=== PATIENT | male | born 2000 ===

== ENCOUNTER 2024-11-28 13:23 | Inpatient (IN) | payer OTHER, SELFPAY ==
[2024-11-28 13:50] VITALS: BP 133/70; PULSE 84; RESP 16; TEMP 37.2; O2SAT 96; BMI 30.5
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
[2024-11-28 14:42] LABS: MANUAL DIFF FLAG NO
[2024-11-28 14:46] LABS: Appearance Urine Clear; Color Urine Yellow; Glucose Urine UA Negative (Negative); Leukocyte Esterase Urine Negative (Negative); Nitrite Urine Negative (Negative); Urine Blood Negative (Negative); Urine Ketones Negative (Negative); Urine Protein Negative (Neg-Trace)
[2024-11-28 14:48] LABS: Basophils Percent Auto 0.5 % (0-2); Eosinophils Percent Auto 0.5 % (0-4); Hematocrit 38.9 % (42.0-52.0); Imm Gran Abs Auto 0.01 X10*3/uL (0.00-0.03); Imm Gran Pct Auto 0.2 % (0.0-0.4); Lymphocytes Absolute Auto 1.8 X10*3/uL (1.2-4.9); Lymphocytes Percent Auto 32.3 % (20-40); Mean Corpuscular HGB Conc 33.4 g/dl (31.0-36.0); Mean Corpuscular Hemoglobin 29.8 pg (27.0-33.0); Mean Corpuscular Volume 89.2 fL (80.0-98.0); Mean Platelet Volume 9.3 fL (9.4-12.4); Monocytes Absolute Auto 0.3 X10*3/uL (0.1-1.2); Monocytes Percent Auto 4.9 % (2-11); Neutrophils Absolute Auto 3.4 x10*3/uL (2.0-8.3); Neutrophils Percent Auto 61.6 % (45-73); Platelet Count 324 X10*3/uL (160-400); Red Blood Count 4.36 X10*6/uL (4.60-5.80); Red Cell Distribution Width 12.1 % (11.0-16.0); White Blood Count 5.5 X10*3/uL (4.8-10.8)
[2024-11-28 14:59] LABS: COVID-19 Test Negative (Negative); IDNOW Serial# 58CA691E
[2024-11-28 15:03] LABS: Amphetamine Screen Urine Not Detected (Not Detect); Barbiturates, Urine Not Detected (Not Detect); Benzodiazepines Screen Urine Not Detected (Not Detect); Buprenorphine Scr Not Detected (Not Detect); Cannabinoid Screen Urine Not Detected (Not Detect); Cocaine Screen Urine Not Detected (Not Detect); Fentanyl, urine Not Detected (Not Detect); Methadone Screen, Urine Not Detected (Not Detect); Opiate Screen Urine Not Detected (Not Detect); Oxycodone Screen Urine Not Detected (Not Detect); Phencyclidine Screen Urine Not Detected (Not Detect)
[2024-11-28 15:21] LABS: Alanine Aminotransferase 35 U/L (0-40); Albumin Level 4.1 g/dL (3.5-5.0); Anion Gap 12 (12-20); Aspartate Amino Transferase 24 U/L (5-37); Bilirubin Total 0.5 mg/dL (0.0-1.0); Blood Urea Nitrogen 7 mg/dL (9-16); Calcium 9.8 mg/dL (8.4-10.2); Carbon Dioxide 26 mmol/L (22-29); Chloride 106 mmol/L (96-108); Creatinine Clr Calc Pharmacy 158.1; Estimated Glomerular Filt Rate > 60; Ethanol < 10 mg/dL; Glucose Random 112 mg/dL (60-115); Potassium 3.8 mmol/L (3.3-5.1); Sodium 140 mmol/L (135-145); Total Protein 6.9 g/dL (6.5-8.0)
[2024-11-28 15:38] LABS: Alkaline Phosphatase 43 U/L (39-117)
[2024-11-28 15:44] LABS: Acetaminophen LAB < 3 mcg/mL (<30); Salicylate < 5.0 mg/dL (15-30)
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
--- OUTSIDE RECORDS SUMMARY | 2024-11-28 18:17 | XMS_ITS ---
Author Organization [facility] Address [address] [place] [phone] Care Team Providers Care Sort Line Worker Name Role Phone No, PCP Primary Care Provider Unavailabl e [facility], Nursing Unavailable [phone] [facility] Unavailable [phone] REASON FOR VISIT apply for insurance Encounters Encounter Location Date Provider Diagnosis [address] [id number] 11/14/2024 [facility] Plan Of Treatment Next Appt Details Provider Name:Nursing [facility], 12/28/2024 01:30:00 PM, [address] [place] [address], [id number], Progress Notes * Mónica CLEANINGDOB: 1 (24 yo M)Acc No.[id number]:11/14/2024 Patient:?Mónica CLEANING Provider:?[facility] :2000???Age:24 Y???Sex:Male Gurpreet e:11/14/2024 Address:[address] [place] [phone] Pcp:PCP No Subjective: * Chief Complaints: * ???1. Apply for insurance. * HPI: ???Social Service:?Date of encounter?Date:11/14/2024.?Referral Source?Seen at:, [facility].?Action Taken?[facility]? Member came in with their father to apply for [employer]; called to find out why member was not eligible; member has not submitted a new application since 2019;, application on paper : faxed, Address updated, ZEENAT submitted..?Follow-up Required:?no.?Pt comprehension?Pt agrees with plan, Patient understood process and assisted with process.? * Medical History:? Objective: * Vitals:? Assessment: Plan: * Images: Billing Information: Care Plan Details* * Sign off status: Completed true * Provider:?MACI [facility] Date:?11/14/2024 Generated for Joseph trinh/Cosmo/eTransmitting on:?11/28/2024 06:17 PM EDT History and Physical Notes * HPI (History of Present Illness) Category Sub-Category Detail Notes Social Service Referral Source Seen at:, [facility] Follow-up Required: no Pt comprehension Pt agrees with plan, Patient understood process and assisted with process Action Taken [facility] : Member came in w ith their father to apply for [employer]; called to find out why member was not eligible; member has not submitted a new application since 2019;, application on paper : faxed, Address updated, ZEENAT submitted. Date of encounter Date:11/14/2024
--- OUTSIDE RECORDS SUMMARY | 2024-11-28 18:17 | XMS_ITS ---
Author Organization [facility] Address [address] [place] [phone] Care Team Providers Care Sales Hunter Name Role Phone No, PCP Primary Care Provider Unavailabl e [facility], Nursing Unavailable [phone] [facility] Unavailable [phone] REASON FOR VISIT pick plan and pcp Encounters Encounter Location Date Provider Diagnosis [address] [id number] 11/20/2024 [facility] Plan Of Treatment Next Appt Details Provider Name:Nursing [facility], 12/28/2024 01:30:00 PM, [address] [place] [address], [id number], Progress Notes * Mónica CLEANINGDOB: 1 (24 yo M)Acc No.[id number]:11/20/2024 Patient:?Mónica CLEANING Provider:?[facility] :2000???Age:24 Y???Sex:Male Gurpreet e:11/20/2024 Address:[address] [place] [phone] Pcp:PCP No Subjective: * Chief Complaints: * ???1. Pick plan and pcp. * HPI: ???Social Service:?Date of encounter?Date:11/20/2024.?Action Taken?[facility]? Enrollment in plan-online: [phone]; Picked plan and pcp to C3 w/[facility]; 1-2 days to process..?Follow-up Required:?no.?Pt comprehension?Pt agrees with plan, Patient understood process and assisted with process.? * Medical History:? Objective: * Vitals:? Assessment: Plan: * Images: Billing Information: Care Plan Details* * Sign off status: Completed true * Provider:?MACI [facility] Date:?11/20/2024 Generated for Joseph trinh/Cosmo/Livia on:?11/28/2024 06:16 PM EDT History and Physical Notes * HPI (History of Present Illness) Category Sub-Category Detail Notes Social Service Follow-up Required: no Pt comprehension Pt agrees with plan, Patient understood process and assisted with process Action Taken [facility] : Enrollment in an-online: [phone]; Picked plan and pcp to C3 w/[facility]; 1-2 days to process. Date of encounter Date:11/20/2024
--- OUTSIDE RECORDS SUMMARY | 2024-11-28 18:17 | XMS_ITS | Patient Health Record ---
Author Organization [facility] Address [address] [place] [address] [phone] Care Team Providers Care Apprentice Painter Neckties Name Role Phone No, PCP Primary Care Provider Unavailabl e [facility], Nursing Unavailable [phone] [facility] Unavailable [phone] Reason For Referral No Information Encounters Encounter Location Date Provider Diagnosis [address] [id number] 11/14/[address] [id number] 11/20/2024 [facility] Plan Of Treatment Next Appt Details Provider Name:Nursing [facility], 12/28/2024 01:30:00 PM, [address] [place] [address], [id number], Insurance Providers Payer Name Payer Address Payer Phone Subscriber Number Group Number Insured Name Patient Relationship to Insured Coverage Start Date Coverage End Date [place] Standard [address] [place] [address] [id number] Mónica Cleaning Self - patient is the insured
--- NOTE | 2024-11-28 19:58 | MHC.EDTECH ---
pt refusing EKG at this time. rn aware.
[2024-11-28 22:00] VITALS: BP 138/92; PULSE 82; RESP 16; TEMP 36.8; O2SAT 97
[2024-11-29 06:07] VITALS: RESP 16
--- NOTE | 2024-11-29 09:10 | ECG_ITS ---
Test Reason : r/o prolong QT Blood Pressure : */* mmHG Vent. Rate : 89 BPM Atrial Rate : 89 BPM P-R Int : 152 ms QRS Dur : 94 ms QT Int : 344 ms P-R-T Axes : -14 5 26 degrees QTcB Int : 418 ms Normal sinus rhythm Normal ECG No previous ECGs available Referred By: Miriam Cohen Electronically Signed By: BHANU FONTAINE MD
--- NOTE | 2024-11-29 12:00 | PC.NURSE ---
Report to becky on M5
[2024-11-29 12:10] VITALS: BP 134/80; PULSE 101; RESP 14; TEMP 36.9; O2SAT 99
[2024-11-29 12:48] VITALS: BMI 29.3
[2024-11-29 12:49] VITALS: BP 118/82; PULSE 91; RESP 16; TEMP 37.2; O2SAT 98
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
[2024-11-29 20:35] VITALS: BP 128/73; PULSE 91; RESP 16; TEMP 36.8; O2SAT 97
[2024-11-30 07:32] VITALS: BP 129/67; PULSE 80; RESP 16; TEMP 36.6; O2SAT 99
--- NOTE | 2024-11-30 08:25 | PC.NURSE ---
Elva refused lab draw. Mimi Mascorro NP and William Serrano MD made aware
--- NOTE | 2024-11-30 09:17 | P.HPPS_ITS ---
HPI Date of Service: 11/30/24 Chief Complaint: Grave Disability Sources of Information: patient interviewed, chart reviewed and crisis/core team assessment reviewed HPI Subjective Notes: [place] Warning and 3 Day Narrative: Patient is a 24-year-old male with history of schizophrenia and autism who self presented due to self dialogue being and delusions secondary to medication noncompliance. Per crisis report, patient's father brought him to ER due to concerns of delusions, dissociation and self dialoguing. Patient did not complain of anything physically and mentally in ER. Poor eye contact. Difficult to engage. Responding with one to two-word answers. Denies SI/HI/VH/AH. Patient's father reports history of being diagnosed with autism as a child and schizophrenia as most recent. Patient was recently discharged from [facility] earlier this month however was not medication compliant. Patient does not have outpatient psychiatric providers. During admission assessment patient presents alert and oriented x3. Calm and cooperative. Declined to meet with this display card writer in office; lying on bed staring at ceiling. Patient reports feeling okay ; patient stated, my dad dropped me off because he was worried about me. I do not know what about . Patient reports he was recently discharged from [facility] but was unable to give reasoning for hospitalization. No delusional statements were made during assessment. Was not observed responding to internal stimuli. Patient denies SI/HI/VH/AH. Patient reports that he is willing to restart on his home medication of Risperdal. Past Psychiatric History: Does not have outpatient psychiatric providers. Recently discharged from [facility] 11/2024. This is patient's 2nd inpatient psychiatric hospitalization. Denies history of SA/SIB. Medical Evaluation Reviewed: Yes PMF Family History: Denies Social History: Homeless. Single. No kids. Unemployed. High school diploma. Substance History: Denies Trauma History: Denies Diagnostics Vital Signs (24Hr): Vital Signs - 24 hr 11/29/24 12:10 11/29/24 12:49 11/29/24 20:35 Temperature 98.4 F 98.9 F 98.2 F Pulse Rate 101 H 91 91 Respiratory Rate 14 16 16 Blood Pressure 134/80 118/82 128/73 Pulse Oximetry 99 98 97 Oxygen Delivery Method Room Air Room Air Room Air 11/30/24 07:32 Temperature 97.9 F Pulse Rate 80 Respiratory Rate 16 Blood Pressure 129/67 Pulse Oximetry 99 Oxygen Delivery Method Room Air BMI result Body Mass Index 29.3 Labs 11/28/24 14:32 11/28/24 14:32 Labs: Laboratory Results - last 48 hr 11/28/24 14:32 WBC 5.5 RBC 4.36 L Hgb 13.0 L Hct 38.9 L MCV 89.2 MCH 29.8 MCHC 33.4 RDW 12.1 Plt Count 324 MPV 9.3 L Immature Gran % (Auto) 0.2 Neut % (Auto) 61.6 Lymph % (Auto) 32.3 [place] % (Auto) 4.9 Eos % (Auto) 0.5 Baso % (Auto) 0.5 Lymph # (Auto) 1.8 [place] # (Auto) 0.3 Eos # (Auto) 0.0 Baso # (Auto) 0.0 Abs Immat Gran (auto) 0.01 Absolute Neuts (auto) 3.4 Absolute Nucleated RBC 0.000 Nucleated RBC % (auto) 0.0 Sodium 140 Potassium 3.8 Chloride 106 Carbon Dioxide 26 Anion Gap 12 BUN 7 L Creatinine 0.89 Estim Creat Clear Calc 158.1 Estimated GFR > 60 Random Glucose 112 Calcium 9.8 Total Bilirubin 0.5 AST 24 ALT 35 Alkaline Phosphatase 43 Total Protein 6.9 Albumin 4.1 Urine Color Yellow Urine Appearance Clear Urine pH 6.0 Ur Specific [place] 1.010 Urine Protein Negative Urine Glucose (UA) Negative Urine Ketones Negative Urine Blood Negative Urine Nitrite Negative Ur Leukocyte Esterase Negative Salicylates < 5.0 L Urine Opiates Screen Not Detected Ur Buprenorphine Scrn Not Detected Ur Oxycodone Screen Not Detected Urine Methadone Screen Not Detected Urine Fentanyl Screen Not Detected Acetaminophen < 3 Ur Barbiturates Screen Not Detected Ur Phencyclidine Scrn Not Detected Ur Amphetamines Screen Not Detected U Benzodiazepines Scrn Not Detected Urine Cocaine Screen Not Detected U Marijuana (THC) Screen Not Detected Ethyl Alcohol < 10 COVID-19 (DONIS) Negative COVID-19 Clin Com See Note Meds/Allergies Meds Home Medications ?Medication ?Instructions ?Recorded ?Confirmed ?Type lamotrigine 25 mg tablet 25 mg PO BID 11/29/24 11/29/24 History multivitamin 1 tab PO DAILY 11/29/24 11/29/24 History risperidone 1 mg tablet (Risperdal) 1 mg PO BID 11/29/24 11/29/24 History Allergies Allergies Allergy/AdvReac Type Severity Reaction Status Date / Time No Known Allergies Allergy Verified 11/28/24 13:56 Mental Status Exam Mental Status Exam Patient Appearance: Appropriate Patient Orientation: Person, Place, Time and Situation Level of Consciousness: Awake and Alert Patient Behavior: Guarded, Cooperative and Poor Eye Contact Mood Description: Calm Affect Description: Blunted Ability to Follow Directions: Good Speech Pattern: Clear and Delayed Memory Description: Intact Hallucinations: None Delusions: Not Present Thought Process: Linear Thought Content: positive for Thought Blocking Assessment & Plan Assessment & Plan (1) Schizophrenia: Status: Acute Code(s): F20.9 - Schizophrenia, unspecified (2) Autism spectrum disorder: Status: Acute Code(s): F84.0 - Autistic disorder Plan Patient is a 24-year-old male with history of schizophrenia and autism who self presented due to self dialogue being and delusions secondary to medication noncompliance. Plan: 3 day 15 minute safety checks Obtain collateral Continue home medication Referral to outpatient psychiatric providers Encourage groups Discharge planning Patient educated on: diagnosis and medication risk/benefits Reason for continued inpatient stay Substantial Risk for: med/psych decompensation Statement Statement: I have reviewed the history and physical and performed a pertinent examination on my patient. No changes have occurred unless specified. If the History and Physical was not performed prior to admission, the Hospitalist's service will be consulted for completing the admission physical. Time Spent With Patient Time: Total time managing care of this patient today _60___ minutes.
[2024-11-30] MEDS: risperiDONE 1 MG TABLET PO ×2 (09:40→21:04)
[2024-11-30 20:00] VITALS: BP 115/63; PULSE 93; RESP 16; TEMP 36.9; O2SAT 98
[2024-12-01] MEDS: risperiDONE 1 MG TABLET PO ×2 (09:44→20:20)
--- NOTE | 2024-12-01 10:42 | HO.PSYCHPN ---
Subjective Subjective Date of Service: 12/01/24 Reason For Visit: Grave Disability Subjective Notes: 3 Day Interim History: Pt slept through the night. He presents as catatonic, minimal spontaneous words, waxy flexibility, appears internally preoccupied, very minimal oral intake. attempted to give oral ativan but declined. sitting in bed, does not get out of his room. He has been getting risperidone- do worry about high potency antipsychotic worsening catatonia, especially as he is not on ativan. Diagnostics Vital Signs (24Hr): Vital Signs - 24 hr 11/30/24 20:00 Temperature 98.5 F Pulse Rate 93 Respiratory Rate 16 Blood Pressure 115/63 Pulse Oximetry 98 Oxygen Delivery Method Room Air BMI result Body Mass Index 29.3 Labs 12/03/24 16:30 12/03/24 16:30 Medications Medications Current Medications Acetaminophen (Acetaminophen 325 Mg Tablet) 650 mg PO Q6H PRN PRN Reason: Headache/Pain, Scale 1-10 Al Hydroxide/Mg Hydroxide (Magnesium Hydrox/Alum Hydrox 30 Ml Oral.Susp) 30 ml PO Q6H PRN PRN Reason: Heartburn/Nausea Hydroxyzine HCl (Hydroxyzine Hcl 25 Mg Tablet) 25 mg PO Q6H PRN PRN Reason: mild anxiety Magnesium Hydroxide (Milk Of Magnesia 30 Ml Oral.Susp) 30 ml PO DAILY PRN PRN Reason: Constipation Nicotine Polacrilex (Nicotine Polacrilex 2 Mg Gum) 4 mg BUCCAL Q2H PRN PRN Reason: Nicotine Cravings Olanzapine (Olanzapine 5 Mg Tablet) 5 mg PO Q4H PRN PRN Reason: agitation Risperidone (Risperidone 1 Mg Tablet) 1 mg PO BID ARNIE Last Admin: 12/01/24 09:44 Dose: 1 mg Trazodone HCl (Trazodone Hcl 50 Mg Tablet) 50 mg PO BEDTIME MRX1 PRN PRN Reason: Insomnia Allergies Allergies Allergy/AdvReac Type Severity Reaction Status Date / Time No Known Allergies Allergy Verified 11/28/24 13:56 Assessment & Plan Assessment & Plan (1) Schizophrenia: Status: Acute Code(s): F20.9 - Schizophrenia, unspecified (2) Autism spectrum disorder: Status: Acute Code(s): F84.0 - Autistic disorder Plan Patient is a 24-year-old male with history of schizophrenia and autism who self presented due to self dialogue being and delusions secondary to medication noncompliance. Plan: 12/01- pt presents with s/s of catatonia including mutism, waxy flexibility. decline oral ativan. IM ativan shortage. may attempt to give oral again is possible, may have to stop risperidone as it will worsen catatonia. Reason for continued inpatient stay Substantial Risk for: inability to function Time Spent With Patient Time: Total time managing care of this patient today ____ minutes.
[2024-12-01 20:25] VITALS: BP 116/64; PULSE 81; RESP 16; TEMP 36.9; O2SAT 98
[2024-12-02 08:00] VITALS: RESP 18
[2024-12-02] MEDS: diazePAM 10 MG/2 ML CARTRIDGE 5 MG IM (12:25)
[2024-12-02 13:23] VITALS: BP 121/83; PULSE 113; RESP 24; TEMP 37.1; O2SAT 98
[2024-12-02 20:05] VITALS: RESP 18; TEMP 36.8
--- NOTE | 2024-12-02 22:27 | HO.PSYCHPN ---
Subjective Subjective Date of Service: 12/02/24 Reason For Visit: Grave Disability Subjective Notes: 3 Day Interim History: Pt slept through the night. He appears even more withdrawn secondary to catatonia. Pt presents with waxy flexibility. mutism, guarded, negativism also noted. Given diazepam 5mg IM with limited effect. refused oral ativan. will stop risperidone due to catatonia. Medication Compliance: No Review of Systems Constitutional: Reports no additional constitutional complaints, Denies chills, Denies fever(s) and Denies night sweats Eyes: Reports no additional eye complaints, Denies blurry vision, Denies change in vision, Denies diplopia, Denies eye discharge, Denies loss of vision and Denies eye pain Denies dizziness Cardiovascular: Reports no additional cardiovascular complaints, Denies chest pain, Denies lightheadedness, Denies Loss of Consciousness and Denies dyspnea Respiratory: Reports no additional respiratory complaints and Denies dyspnea Gastrointestinal: Reports no additional gastrointestinal complaints, Denies abdominal pain, Denies melena, Denies hematochezia, Denies change in bowel habits and Denies change in stool character Genitourinary: Reports no additional male genitourinary complaints, Denies hematuria, Denies oliguria, Denies difficulty urinating, Denies dysuria, Denies urinary frequency, Denies urinary hesitancy, Denies urinary incontinence and Denies urinary urgency Musculoskeletal: Reports no additional musculoskeletal complaints, Denies numbness and Denies tingling Reports behavioral changes, Denies dizziness, Denies loss of vision, Denies numbness and Denies tingling Psychiatric: Reports behavioral changes Endocrine: Reports no additional endocrine complaints Hematologic/Lymphatic: Reports no additional hematologic/lymphatic complaints Allergic/Immunologic: Reports no additional allergic/immunologic complaints Mental Status Exam Mental Status Exam Narrative: Appearance: wearing hospital gown, poor hygine, sitting in bed, slightly rocking back and forth, in NAD behavior: not engaging Psychomotor: withdrawn catatonia- waxy flexibility, rigidity noted. Speech: mostly mute, TP: unable to assess TC: unable to assess Diagnostics Vital Signs (24Hr): Vital Signs - 24 hr 12/02/24 08:00 12/02/24 13:23 12/02/24 20:05 Temperature 98.7 F 98.3 F Pulse Rate 113 H Respiratory Rate 18 24 H 18 Blood Pressure 121/83 Pulse Oximetry 98 Oxygen Delivery Method Room Air BMI result Body Mass Index 29.3 Labs 12/03/24 16:30 12/03/24 16:30 Medications Medications Current Medications Acetaminophen (Acetaminophen 325 Mg Tablet) 650 mg PO Q6H PRN PRN Reason: Headache/Pain, Scale 1-10 Al Hydroxide/Mg Hydroxide (Magnesium Hydrox/Alum Hydrox 30 Ml Oral.Susp) 30 ml PO Q6H PRN PRN Reason: Heartburn/Nausea Hydroxyzine HCl (Hydroxyzine Hcl 25 Mg Tablet) 25 mg PO Q6H PRN PRN Reason: mild anxiety Lorazepam (Lorazepam 1 Mg Tablet) 1 mg PO TID ARNIE Last Admin: 12/02/24 21:57 Dose: Not Given Magnesium Hydroxide (Milk Of Magnesia 30 Ml Oral.Susp) 30 ml PO DAILY PRN PRN Reason: Constipation Nicotine Polacrilex (Nicotine Polacrilex 2 Mg Gum) 4 mg BUCCAL Q2H PRN PRN Reason: Nicotine Cravings Olanzapine (Olanzapine 5 Mg Tablet) 5 mg PO Q4H PRN PRN Reason: agitation Trazodone HCl (Trazodone Hcl 50 Mg Tablet) 50 mg PO BEDTIME MRX1 PRN PRN Reason: Insomnia Allergies Allergies Allergy/AdvReac Type Severity Reaction Status Date / Time No Known Allergies Allergy Verified 11/28/24 13:56 Assessment & Plan Assessment & Plan (1) Schizophrenia: Status: Acute Code(s): F20.9 - Schizophrenia, unspecified (2) Autism spectrum disorder: Status: Acute Code(s): F84.0 - Autistic disorder Plan Patient is a 24-year-old male with history of schizophrenia and autism who self presented due to self dialogue being and delusions secondary to medication noncompliance. Plan: 12/01 pt presents with catatonia, decline taking ativan. 12/02 more withdrawn in terms of catatonia, given diazepam 5mg Im with very limited effect. ativan IM in national short supply. d/c risperidone as it will worsen catatonia. scheduled ativan 1mg po TID. Reason for continued inpatient stay Substantial Risk for: inability to function Time Spent With Patient Time: Total time managing care of this patient today ____ minutes.
[2024-12-03 08:00] VITALS: RESP 18
[2024-12-03 16:30] VITALS: BP 153/99; PULSE 97; RESP 18; TEMP 36.8; O2SAT 100
--- NOTE | 2024-12-03 16:50 | PC.NURSE ---
RN approached pt at 1500 and 1510 for scheduled PO Ativan. Pt's eyes remained closed, pt did not respond to verbal cues. Pt approached regarding orders for urgent lab draw. RN explained the need for lab draw and described the procedure to the pt. Continues unable to respond to requests for vital signs and lab draw. Pt rigid, non-responsive to verbal cues. BP cuff placed on pt's right forearm. Vitals 153/99, HR 97 RR 18 98.2 O2 100%. Cydney LANG aware. Order placed for physical hold in order to obtain labs. Per provider, medically necessary labs due to acute change due to catatonia. Security called, physical hold initiated at 1628, duration 2 minutes. Pt assessed by Dr. Saucedo at 1658.
--- NOTE | 2024-12-03 17:01 | HO.BHRESTREX ---
Behavioral Restraint Exam Behavioral Health Restraint Exam Type of Restraint: Physical Hold Reason for Restraint: Substantial Risk (Significantly catatonic) Medical Concerns for Restraint: No medical concerns, pt w/o acute inj / no noted resp/VS abnormalities Behavioral Assessment / Plan: Concerns / further recommendations, explain below: Comment: Patient's catatonia is severe and concerning. Treatment is IM benzodiazepines or ECT
[2024-12-03 17:22] LABS: MANUAL DIFF FLAG NO
[2024-12-03 17:24] LABS: Basophils Percent Auto 0.7 % (0-2); Eosinophils Percent Auto 0.2 % (0-4); Hematocrit 49.5 % (42.0-52.0); Imm Gran Abs Auto 0.02 X10*3/uL (0.00-0.03); Imm Gran Pct Auto 0.3 % (0.0-0.4); Lymphocytes Absolute Auto 1.5 X10*3/uL (1.2-4.9); Mean Corpuscular HGB Conc 32.3 g/dl (31.0-36.0); Mean Corpuscular Hemoglobin 29.1 pg (27.0-33.0); Mean Corpuscular Volume 90.2 fL (80.0-98.0); Mean Platelet Volume 10.3 fL (9.4-12.4); Monocytes Absolute Auto 0.5 X10*3/uL (0.1-1.2); Monocytes Percent Auto 7.5 % (2-11); Neutrophils Percent Auto 66.3 % (45-73); Platelet Count 274 X10*3/uL (160-400); Red Blood Count 5.49 X10*6/uL (4.60-5.80); Red Cell Distribution Width 11.9 % (11.0-16.0)
[2024-12-03 17:37] LABS: Estimated Average Glucose 80 mg/dL; Hemoglobin A1C 99.1103 umol/L; Hemoglobin A1c % 4.4 % (<6.0); Total Hemoglobin (HGBA1C) 3998.6569 umol/L
[2024-12-03 17:40] LABS: Alanine Aminotransferase 30 U/L (0-40); Albumin Level 4.7 g/dL (3.5-5.0); Alkaline Phosphatase 52 U/L (39-117); Anion Gap 18 (12-20); Aspartate Amino Transferase 34 U/L (5-37); Blood Urea Nitrogen 13 mg/dL (9-16); Calcium 10.9 mg/dL (8.4-10.2); Carbon Dioxide 24 mmol/L (22-29); Chloride 105 mmol/L (96-108); Creatinine Clr Calc Pharmacy 138.1; Estimated Glomerular Filt Rate > 60; Glucose Random 88 mg/dL (60-115); Potassium 4.6 mmol/L (3.3-5.1); Sodium 142 mmol/L (135-145)
[2024-12-03 17:45] LABS: Cholesterol 177 mg/dL (<200); HDL Cholesterol 38 mg/dL (>40); LDL Cholesterol Calculated 129 mg/dL (<100); Triglycerides 52 mg/dL (<150)
[2024-12-03 18:00] LABS: Free T4 (Free Thyroxine) 1.53 ng/dL (0.71-1.85); Thyroid Stimulating Hormone 0.63 uIU/mL (0.32-4.0)
[2024-12-03 18:15] LABS: Folate 7.6 ng/mL (> or = 4.0); Vitamin B12 458 pg/mL (200-900)
[2024-12-03 19:35] VITALS: BP 130/82; PULSE 100; RESP 16; TEMP 36.8; O2SAT 100
--- NOTE | 2024-12-03 20:27 | P.PNPSI_ITS ---
Subjective Subjective Date of Service: 12/03/24 Reason For Visit: Grave Disability Subjective Notes: 3 Day Interim History: Pt slept through the night. He continues to present with s/s of catatonia, waxy flexibility, mutism, negativism, some degree of rigidity. HTN, afebrile. very minimal oral intake. Will hold to do labs to r/u more life threatening conditions such as NMS. Review of Systems Constitutional: Reports no additional constitutional complaints, Denies chills, Denies fever(s) and Denies night sweats Eyes: Reports no additional eye complaints, Denies blurry vision, Denies change in vision, Denies diplopia, Denies eye discharge, Denies loss of vision and Denies eye pain Denies dizziness Cardiovascular: Reports no additional cardiovascular complaints, Denies chest pain, Denies lightheadedness, Denies Loss of Consciousness and Denies dyspnea Respiratory: Reports no additional respiratory complaints and Denies dyspnea Gastrointestinal: Reports no additional gastrointestinal complaints, Denies abdominal pain, Denies melena, Denies hematochezia, Denies change in bowel habits and Denies change in stool character Genitourinary: Reports no additional male genitourinary complaints, Denies hematuria, Denies oliguria, Denies difficulty urinating, Denies dysuria, Denies urinary frequency, Denies urinary hesitancy, Denies urinary incontinence and Denies urinary urgency Musculoskeletal: Reports no additional musculoskeletal complaints, Denies numbness and Denies tingling Reports behavioral changes, Denies dizziness, Denies loss of vision, Denies numbness and Denies tingling Psychiatric: Reports behavioral changes Endocrine: Reports no additional endocrine complaints Hematologic/Lymphatic: Reports no additional hematologic/lymphatic complaints Allergic/Immunologic: Reports no additional allergic/immunologic complaints Mental Status Exam Mental Status Exam Narrative: Appearance: wearing hospital gown, poor hygine, sitting in bed, slightly rocking back and forth, in NAD behavior: not engaging Psychomotor: withdrawn catatonia- waxy flexibility, rigidity noted. Speech: mostly mute, TP: unable to assess TC: unable to assess Diagnostics Vital Signs (24Hr): Vital Signs - 24 hr 12/03/24 08:00 12/03/24 16:30 12/03/24 19:35 Temperature 98.2 F 98.3 F Pulse Rate 97 100 Respiratory Rate 18 18 16 Blood Pressure 153/99 H 130/82 Pulse Oximetry 100 100 Oxygen Delivery Method Room Air Room Air BMI result Body Mass Index 29.3 Labs 12/03/24 16:30 12/03/24 16:30 Labs: Laboratory Results - last 48 hr 12/03/24 16:30 WBC 6.0 RBC 5.49 D Hgb 16.0 D Hct 49.5 D MCV 90.2 MCH 29.1 MCHC 32.3 RDW 11.9 Plt Count 274 MPV 10.3 Immature Gran % (Auto) 0.3 Neut % (Auto) 66.3 Lymph % (Auto) 25.0 [place] % (Auto) 7.5 Eos % (Auto) 0.2 Baso % (Auto) 0.7 Lymph # (Auto) 1.5 [place] # (Auto) 0.5 Eos # (Auto) 0.0 Baso # (Auto) 0.0 Abs Immat Gran (auto) 0.02 Absolute Neuts (auto) 4.0 Absolute Nucleated RBC 0.000 Nucleated RBC % (auto) 0.0 Sodium 142 Potassium 4.6 D Chloride 105 Carbon Dioxide 24 Anion Gap 18 BUN 13 Creatinine 1.00 Estim Creat Clear Calc 138.1 Estimated GFR > 60 Random Glucose 88 Estimat Average Glucose 80 Hemoglobin A1c % 4.4 Calcium 10.9 H D Total Bilirubin 1.0 AST 34 ALT 30 Alkaline Phosphatase 52 Total Creatine Kinase 423 H Total Protein 8.0 Albumin 4.7 Triglycerides 52 Cholesterol 177 LDL Cholesterol, Calc 129 H HDL Cholesterol 38 L Vitamin B12 458 Folate 7.6 TSH 0.63 Free T4 1.53 Medications Medications Current Medications Acetaminophen (Acetaminophen 325 Mg Tablet) 650 mg PO Q6H PRN PRN Reason: Headache/Pain, Scale 1-10 Al Hydroxide/Mg Hydroxide (Magnesium Hydrox/Alum Hydrox 30 Ml Oral.Susp) 30 ml PO Q6H PRN PRN Reason: Heartburn/Nausea Hydroxyzine HCl (Hydroxyzine Hcl 25 Mg Tablet) 25 mg PO Q6H PRN PRN Reason: mild anxiety Lorazepam (Lorazepam 1 Mg Tablet) 1 mg PO TID [facility] Last Admin: 12/03/24 15:10 Dose: Not Given Magnesium Hydroxide (Milk Of Magnesia 30 Ml Oral.Susp) 30 ml PO DAILY PRN PRN Reason: Constipation Nicotine Polacrilex (Nicotine Polacrilex 2 Mg Gum) 4 mg BUCCAL Q2H PRN PRN Reason: Nicotine Cravings Olanzapine (Olanzapine 5 Mg Tablet) 5 mg PO Q4H PRN PRN Reason: agitation Trazodone HCl (Trazodone Hcl 50 Mg Tablet) 50 mg PO BEDTIME MRX1 PRN PRN Reason: Insomnia Allergies Allergies Allergy/AdvReac Type Severity Reaction Status Date / Time No Known Allergies Allergy Verified 11/28/24 13:56 Assessment & Plan Assessment & Plan (1) Schizophrenia: Status: Acute Code(s): F20.9 - Schizophrenia, unspecified (2) Autism spectrum disorder: Status: Acute Code(s): F84.0 - Autistic disorder Plan Patient is a 24-year-old male with history of schizophrenia and autism who self presented due to self dialogue being and delusions secondary to medication noncompliance. Plan: 12/01 pt presents with catatonia, decline taking ativan. 12/02 more withdrawn in terms of catatonia, given diazepam 5mg Im with very limited effect. ativan IM in national short supply. d/c risperidone as it will worsen catatonia. scheduled ativan 1mg po TID. 12/03 held to complete labs as pt has had very limited oral intake, catatonia with some degree of rigidity, mutism, waxy flexibility. ordered cbc, cmp, CK. Some increase in Cr, BUn still within wnl but suspect sign of dehydration. Reason for continued inpatient stay Substantial Risk for: inability to function Time Spent With Patient Time: Total time managing care of this patient today ____ minutes.
--- NOTE | 2024-12-04 06:36 | HO.PSYEVENT ---
Documented by User: Cydney Loyola NP 12/04/24 06:38 Event Note Date of Service: 12/03/24 Psych Restraint Event Note: Pt presenting increasingly more catatonic, rigidity noted, not taking oral medications, nor eating nor drinking for several days. Risk of severe dehydration, potential of life threatening form of catatonia with rigidity, need to hold for labs including CBC, CMP, CK. Physical hold at 4:28pm, ended at 4:31pm. No injuries sustain. VS stable- BP slightly high 153/99, HR 97, RR 18, Temp 98.2, O2sat 100% on RA. Time Spent With Patient Time: Total time managing care of this patient today ____ minutes. Documented by User: Kofi Lira MD 12/04/24 22:52 Event Note Date of Service: 12/04/24
[2024-12-04 08:00] VITALS: RESP 18
[2024-12-04] MEDS: diazePAM 10 MG/2 ML CARTRIDGE IM (08:42)
--- NOTE | 2024-12-04 08:48 | PC.NURSE ---
IM Valium stat given per orders from Cydney Loyola for medical necessity of catatonia. Patient is not eating/drinking or verbalizing with RN. He is not responding to verbal cues but is moving arms, hands,legs and eyes. Respirations 18, even and unlabored.
--- NOTE | 2024-12-04 09:11 | HO.PSYCHPN ---
Subjective Subjective Date of Service: 12/04/24 Reason For Visit: Grave Disability Diagnostics Vital Signs (24Hr): Vital Signs - 24 hr 12/03/24 16:30 12/03/24 19:35 12/04/24 08:00 Temperature 98.2 F 98.3 F Pulse Rate 97 100 Respiratory Rate 18 16 18 Blood Pressure 153/99 H 130/82 Pulse Oximetry 100 100 Oxygen Delivery Method Room Air Room Air BMI result Body Mass Index 29.3 Labs 12/03/24 16:30 12/03/24 16:30 Labs: Laboratory Results - last 48 hr 12/03/24 16:30 WBC 6.0 RBC 5.49 D Hgb 16.0 D Hct 49.5 D MCV 90.2 MCH 29.1 MCHC 32.3 RDW 11.9 Plt Count 274 MPV 10.3 Immature Gran % (Auto) 0.3 Neut % (Auto) 66.3 Lymph % (Auto) 25.0 [place] % (Auto) 7.5 Eos % (Auto) 0.2 Baso % (Auto) 0.7 Lymph # (Auto) 1.5 [place] # (Auto) 0.5 Eos # (Auto) 0.0 Baso # (Auto) 0.0 Abs Immat Gran (auto) 0.02 Absolute Neuts (auto) 4.0 Absolute Nucleated RBC 0.000 Nucleated RBC % (auto) 0.0 Sodium 142 Potassium 4.6 D Chloride 105 Carbon Dioxide 24 Anion Gap 18 BUN 13 Creatinine 1.00 Estim Creat Clear Calc 138.1 Estimated GFR > 60 Random Glucose 88 Estimat Average Glucose 80 Hemoglobin A1c % 4.4 Calcium 10.9 H D Total Bilirubin 1.0 AST 34 ALT 30 Alkaline Phosphatase 52 Total Creatine Kinase 423 H Total Protein 8.0 Albumin 4.7 Triglycerides 52 Cholesterol 177 LDL Cholesterol, Calc 129 H HDL Cholesterol 38 L Vitamin B12 458 Folate 7.6 TSH 0.63 Free T4 1.53 Medications Medications Current Medications Acetaminophen (Acetaminophen 325 Mg Tablet) 650 mg PO Q6H PRN PRN Reason: Headache/Pain, Scale 1-10 Al Hydroxide/Mg Hydroxide (Magnesium Hydrox/Alum Hydrox 30 Ml Oral.Susp) 30 ml PO Q6H PRN PRN Reason: Heartburn/Nausea Hydroxyzine HCl (Hydroxyzine Hcl 25 Mg Tablet) 25 mg PO Q6H PRN PRN Reason: mild anxiety Dextrose/Sodium Chloride (D5ns) 1,000 mls @ 100 mls/hr IVCONT .Q10H ARNIE Lorazepam (Lorazepam 1 Mg Tablet) 1 mg PO TID ARNIE Last Admin: 12/04/24 08:42 Dose: Not Given Magnesium Hydroxide (Milk Of Magnesia 30 Ml Oral.Susp) 30 ml PO DAILY PRN PRN Reason: Constipation Nicotine Polacrilex (Nicotine Polacrilex 2 Mg Gum) 4 mg BUCCAL Q2H PRN PRN Reason: Nicotine Cravings Olanzapine (Olanzapine 5 Mg Tablet) 5 mg PO Q4H PRN PRN Reason: agitation Sodium Chloride (0.9 % Sodium Chloride Flush 3 Ml Syringe) 3 ml IVFLUSH QSHIFT ARNIE Trazodone HCl (Trazodone Hcl 50 Mg Tablet) 50 mg PO BEDTIME MRX1 PRN PRN Reason: Insomnia Allergies Allergies Allergy/AdvReac Type Severity Reaction Status Date / Time No Known Allergies Allergy Verified 11/28/24 13:56 Assessment & Plan Assessment & Plan (1) Schizophrenia: Status: Acute Code(s): F20.9 - Schizophrenia, unspecified (2) Autism spectrum disorder: Status: Acute Code(s): F84.0 - Autistic disorder Plan Patient is a 24-year-old male with history of schizophrenia and autism who self presented due to self dialogue being and delusions secondary to medication noncompliance. Plan: 12/01 pt presents with catatonia, decline taking ativan. 12/02 more withdrawn in terms of catatonia, given diazepam 5mg Im with very limited effect. ativan IM in national short supply. d/c risperidone as it will worsen catatonia. scheduled ativan 1mg po TID. 12/03 held to complete labs as pt has had very limited oral intake, catatonia with some degree of rigidity, mutism, waxy flexibility. ordered cbc, cmp, CK. Some increase in Cr, BUn still within wnl but suspect sign of dehydration. Time Spent With Patient Time: Total time managing care of this patient today ____ minutes.
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
--- NOTE | 2024-12-04 13:01 | MHC.CLN ---
CONSULT FOR PPN DISCUSSED CASE WITH JING SPEAR PT IS DAY 5 NPO R/T CATATONIA REVIEWED LABS DISCUSSED WITH PHARMACY RECOMMEND PPN TO START 55ML/HR TO PROVIDE [id number], 132G DEXTROSE, 56G PROTEIN REPLETE LYTES NEEDED PT TO TRANSFER TO MEDICAL FLOOR PENDING FULL CLINICAL NUTRITION ASSESSMENT TO FOLLOW
== END 2024-12-04 14:57 | disposition other institution (70) | DRG 750 ==
LOC: HO.ED 11-29 11:20 → HO.PADLT16 11-29 11:34
PROVIDERS: Physician Assistant Medical; Social Worker; Admitting Provider Psychiatry & Neurology Psychiatry; Emergency Provider Emergency Medicine; Visit Provider Internal Medicine
DX: F20.9 Schizophrenia, unspecified (principal); F06.1 Catatonic disorder due to known physiological condition; Z91.148 Patient's other noncompliance with medication regimen for other reason; F84.0 Autistic disorder; Z20.822 Contact with and (suspected) exposure to COVID-19; Z78.1 Physical restraint status; Z79.899 Other long term (current) drug therapy
CPT/HCPCS: 36415; 80053; 80061; 80143; 80179; 80307; 81003; 82550; 82607; 82746; 83036; 84439; 84443; 85025; 87635; 93005; 99284; J3360; S9485

== ENCOUNTER → 2024-11-29 09:10 | Outpatient (BNV) | payer MEDICAID, SELFPAY | PROVIDERS: Admitting Provider Psychiatry & Neurology Psychiatry; Emergency Provider Emergency Medicine; Visit Provider Internal Medicine Cardiovascular Disease | DX: Z13.6 Encounter for screening for cardiovascular disorders (principal) | CPT/HCPCS: 93010 ==

== ENCOUNTER → 2024-11-29 11:17 | Outpatient (BNV) | payer OTHER, SELFPAY | PROVIDERS: Admitting Provider Psychiatry & Neurology Psychiatry; Emergency Provider Emergency Medicine; Responsible Provider Registered Nurse; Visit Provider Registered Nurse | DX: F20.9 Schizophrenia, unspecified (principal); F84.0 Autistic disorder | CPT/HCPCS: 99232; 99233; 99499 ==

== ENCOUNTER 2024-12-04 13:17 | Outpatient (BNV) | payer MEDICAID, SELFPAY | END 2024-12-11 14:55 | PROVIDERS: Admitting Provider Physician Assistant; Visit Provider Internal Medicine Cardiovascular Disease | DX: R94.31 Abnormal electrocardiogram [ECG] [EKG] (principal); I45.10 Unspecified right bundle-branch block | CPT/HCPCS: 93010 ==

== ENCOUNTER 2024-12-04 13:17 | Inpatient (IN) | payer MEDICAID, SELFPAY ==
--- NOTE | ~2024-12-04 | XR_ITS ---
CLINICAL HISTORY: fever 1 view chest x-ray Comparison: None Findings: The lungs are clear. Heart size is normal. No acute fracture. IMPRESSION: 1. No acute findings. This document has been electronically signed by: Leonel Hinds MD on 12/08/2024 23:44:43
--- NOTE | ~2024-12-04 | FL_ITS ---
EXAMINATION: XR LUMBAR PUNCTURE CLINICAL INFORMATION: Altered mental status, fever COMPARISON: None available. TECHNIQUE: Following explaining fluoroscopy-guided lumbar puncture procedure, benefits and risks of the patient's father via a telephone a telephone consent was obtained. Patient was placed prone on fluoroscopy table and and a marker was placed on the skin at the site of needle insertion. The area was cleaned and draped in usual sterile manner with 2% chlorhexidine solution. 1% lidocaine was injected puncture site. A 20-gauge spinal needle was then inserted a right para midline approach at the L3-4 disc level intrathecally. After removing stylet and observing CSF return, patient was quickly placed in a left lateral decubitus view and opening CSF pressure was obtained. Subsequently CSF fluid was collected in 4 test tubes. The stylet was reintroduced and then tiny was removed following the procedure. Complete hemostasis achieved at puncture site. Patient tolerated procedure extremely well. Sterile Band-Aid applied postprocedure. FINDINGS: On the limited images of lumbar spine no bony abnormality seen. The opening CSF pressure measures 14 cm of water. Approximately 16 mL of clear CSF fluid was collected in 4 test tubes and sent to lab as per physician request. FLUOROSCOPY TIME: 14 seconds DOSE AREA PRODUCT: 462.2 uGy-m2 (microgray-meter squared) FL/FL guided lumbar puncture LP IMPRESSION: Successful fluoroscopy-guided lumbar puncture. Opening CSF pressure 14 cm of water. Clear CSF 16 mL fluid collected in test tubes and sent to lab. Electronically signed by: Edil Okeefe MD 12/11/2024 09:01 AM EDT
--- NOTE | ~2024-12-04 | MR_ITS ---
EXAMINATION: MR BRAIN WITHOUT CONTRAST CLINICAL INFORMATION: Encephalopathy. COMPARISON: None available. TECHNIQUE: MRI of the brain was obtained using routine sequences without contrast. FINDINGS: No restricted diffusion. No acute intracranial hemorrhage, mass effect, edema and shift, hydrocephalus or herniation. Palacios-white matter differentiation is normal. No signal abnormality within the subependymal margin of the third ventricles for within the mamillary bodies. Nonspecific punctate 3 mm hyperintense T2 FLAIR signal left parietal deep white matter. Flow-void signal within the main cerebral vessels is normal. Posterior cranial fossa contents demonstrated no signal abnormality or gross mass effect. Sellar/suprasellar region is normal. Craniocervical junction is intact and normal. Multiple retention cyst in the pterygoid recesses of the sphenoid sinus and the left maxillary sinus. MR/MR head/brain wo con IMPRESSION: No acute intracranial hemorrhage. No signal abnormality to suggest encephalopathy Electronically signed by: James Conway MD 12/07/2024 08:43 AM EDT
--- NOTE | 2024-12-04 13:22 | P.HPHOSP_ITS ---
History of Present Illness Date of Service: 12/04/24 Attending physician on admission: [facility] Chief Complaint: catatonia 24-year-old male with question of schizophrenia and autism spectrum disorder but no other PMH known admitted to adult Psychiatry with consult placed hospitalist service due to severe catatonia with concern for IV fluid needs and benzodiazepines. The patient was admitted on 11/30 due to disorientation and erratic behaviors. He was admitted on lamotrigine and Risperdal but there was a question of noncompliance. These medications have subsequently been held. Shortly after admission, the patient became catatonic, minimally verbal. Per nursing staff, the patient has consumed anything, perhaps very minimal intake, orally since Tuesday. The patient is nonresponsive to tactile stimulus, lying in bed, slightly rigid, spinning his head around constantly. Vitals have revealed intermittent tachycardia, on exam, heart rate 117. Blood pressure is stable. No fevers. On arrival, patient had a mild normocytic anemia with H/H13.0/38.9% 11/28. Now H/H16.0/49.5%, likely hemoconcentration. Creatinine on arrival 0.89 with slight bump to 1.00 this morning. Electrolyte levels normal though with slight bump in potassium from 3.8-4.6 and sodium 140 to 142. No acidosis. Initial calcium 9.8, now 10.9. CPK 429. On arrival UTox negative. Ethyl alcohol level. He was negative for COVID-19. Per Psychiatry, goal is benzo challenge. The patient did receive 10 mg IM without response. Given no PO in 5 days, will transferred to med/tele for versed challenge with tele monitoring and PPN. Review of Systems 2 Review of Systems: Yes Unobtainable due to mental condition [facility] Medical History (Updated 12/07/24 @ 13:47 by Phan Saucedo MD) Autism spectrum disorder Social History Household Members: None Household Members Other:: pt is admit fr M# for catatonia, not response to questions, JULIO CESAR Housing: Homeless Do you presently have visiting nurse or other home services: No Comment: 1:1 sitter at bedside Patient Tobacco Use Status: Never used Tobacco e-Cigarette/Vaping Use: Never Used Second Hand Smoke Exposure: No Use of substances other than those prescribed or required for medical reasons: Unable to respond Currently Displaying Signs/Symptoms of Drug Intoxication Withdrawal: No Advance Directives: No Advance Directives Information Provided: No Do you have a plan to hurt others: No Plan service: No Sexual orientation: Decline to Answer Meds Allergies Allergy/AdvReac Type Severity Reaction Status Date / Time No Known Allergies Allergy Verified 11/28/24 13:56 Home Medications ?Medication ?Instructions ?Recorded ?Confirmed ?Last Taken ?Type No Known Home Meds 12/04/24 12/04/24 Unknown History Physical Exam 2 Vital Signs and Narrative: Constitutional - Awake but minimally responsive, lying in right side recumbant position with tighly flexed arms and legs. No apparent distress Eyes - PERRLA, EOMI Cardiovascular - S1S2, RRR, No edema Respiratory - Normal lung expansion, Normal respiratory effort, No respiratory distress, CTA bilaterally Extremities - no calf tenderness bilaterally, no swelling Skin - Warm/Dry Neurological - Minimally responsive but awake with eyes closed. Spinning head around in circles. Unable to assess pupils as patient rolls eyes when lids lifted. Tone appropriate with resistance. Results Labs 12/07/24 05:09 12/07/24 05:09 Assessment and Plan (1) Catatonia: Status: Acute Plan 24-year-old male with question of schizophrenia and autism spectrum disorder but no other PMH known admitted to adult Psychiatry with consult placed hospitalist service due to severe catatonia who failed benzo challenge with Valium 10 mg to be transferred to med/tele for further benzo challenge with cardiac monitoring as well as parental nutrition given no/very minimal p.o. intake in the last 5 days Catatonia No response to IM diazepam Plan for IV versed per psychiatry followed by ativan challenge if no response. Admit to med/tele Further plan for IV benzo challenge per psychiatry. Consult placed As of right now, no significant lyte abnormality (except for Ca) or RONALDO. However, there are been slight increase in creat, K, and Ca and CPK slightly elevated 400s (no rhabdo) likely r/t volume depletion. Recommend IV LR Discussed with Leslye Clemente local sales associate, given no/minimal PO intake x 5 days, should be admitted for further nutrition. Given catatonia and exam findings, pt unlikely to tolerate NG tube. PPN ordered NPO. IV LR Will continue monitor renal function/lytes daily Possible schizophrenia/autism spectrum disorder Not currently on any medications Psychiatry to follow Will likely need care team consult once medically cleared for transfer back to Psychiatry DVT prophylaxis-Lovenox Full code Patient requires inpatient stay at least 2 midnights for parental nutrition in the setting of severe catatonia and will also require a IV benzo challenge with cardiac monitoring Quality Stroke Does the patient have a stroke diagnosis?: No VTE Prior VTE?: No VTE Risk Level:: Medical - moderate - high VTE Device Contraindication: Treatment Not Indicated VTE Drug Contraindication: N/A - Med Ordered
[2024-12-04 15:32] VITALS: BMI 28.9
[2024-12-04 15:52] VITALS: BP 125/91; PULSE 112; RESP 16; TEMP 37.4; O2SAT 99
[2024-12-04] MEDS: Midazolam HCl 2 MG/2 ML VIAL IVPUSH (17:15)
[2024-12-04] MEDS: diazePAM 10 MG/2 ML CARTRIDGE IVPUSH (17:18)
[2024-12-04] MEDS: Erythromycin Base 0.5% Oph Oin 1 GM TUBE 1 CM EYE-BOTH ×2 (17:20→21:16)
[2024-12-04] MEDS: Lactated Ringers 1,000 ML 125 ML IVCONT (17:21)
[2024-12-04] MEDS: Enoxaparin Sodium 40 MG/0.4 ML SYRINGE SUBCUT (17:21)
[2024-12-04] MEDS: 0.9 % Sodium Chloride Flush 3 ML SYRINGE IVFLUSH (17:30)
--- NOTE | 2024-12-04 17:36 | PC.NURSE ---
pt admit w catatonia. pt is very tense, rigid, and stiff with movement. VSS. this nurse unable to assess pt LOC at this time. Dr Saucedo at bedside when this RN administer IVP Versed and Valium per MD order.
--- OUTSIDE RECORDS SUMMARY | 2024-12-04 18:00 | XMS_ITS | Patient Health Record ---
Author Organization [facility] Address [address] [place] [id number] Care Team Providers Care Tar Distillation Supervisor Name Role Phone No, PCP Primary Care Provider Unavailabl e [facility], Nursing Unavailable [phone] [facility], [facility] Unavailable [phone] Reason For Referral No Information Encounters Encounter Location Date Provider Diagnosis [address] [id number] 11/14/[address] [id number] 11/20/2024 [facility] Plan Of Treatment Next Appt Details Provider Name:Nursing [facility], 12/28/2024 01:30:00 PM, [address] [place] [address], [phone], Insurance Providers Payer Name Payer Address Payer Phone Subscriber Number Group Number Insured Name Patient Relationship to Insured Coverage Start Date Coverage End Date [place] Medicaid Standard [address] [place] [address] [phone] [id number] Mónica Cleaning Self - patient is the insured
--- OUTSIDE RECORDS SUMMARY | 2024-12-04 18:01 | XMS_ITS ---
Author Organization [facility] Address [address] [place] [phone] Care Team Providers Care Chucking Machine Set Up Operator Name Role Phone No, PCP Primary Care Provider Unavailabl e [facility], Nursing Unavailable [phone] [facility], [facility] Unavailable [phone] REASON FOR VISIT apply for insurance Encounters Encounter Location Date Provider Diagnosis [address] [id number] 11/14/2024 [facility] Plan Of Treatment Next Appt Details Provider Name:Nursing [facility], 12/28/2024 01:30:00 PM, [address] [place] [address], [phone], Progress Notes * Mónica CLEANINGDOB: 1 (24 yo M)Acc No.[id number]:11/14/2024 Patient:?Mónica CLEANING Provider:?[facility] :2000???Age:24 Y???Sex:Male Gurpreet e:11/14/2024 Address:[address] [place] [phone] Pcp:PCP No Subjective: * Chief Complaints: * ???1. Apply for insurance. * HPI: ???Social Service:?Date of encounter?Date:11/14/2024.?Referral Source?Seen at:, [facility].?Action Taken?[facility]? Member came in with their father to apply for [employer]; called to find out why member was not eligible; member has not submitted a new application since 2019;, application on paper : faxed, Address updated, [place] submitted..?Follow-up Required:?no.?Pt comprehension?Pt agrees with plan, Patient understood process and assisted with process.? * Medical History:? Objective: * Vitals:? Assessment: Plan: * Images: Billing Information: Care Plan Details* * Sign off status: Completed true * Provider:?MACI [facility] Date:?11/14/2024 Generated for Joseph trinh/Cosmo/eTransmitting on:?12/04/2024 06:00 PM EDT History and Physical Notes * HPI (History of Present Illness) Category Sub-Category Detail Notes Social Service Referral Source Seen at:, [facility] Follow-up Required: no Pt comprehension Pt agrees with plan, Patient understood process and assisted with process Action Taken [facility] : Member came in w ith their father to apply for [employer]; called to find out why member was not eligible; member has not submitted a new application since 2019;, application on paper : faxed, Address updated, [place] submitted. Date of encounter Date:11/14/2024
--- OUTSIDE RECORDS SUMMARY | 2024-12-04 18:01 | XMS_ITS ---
Author Organization [facility] Address [address] [place] [phone] Care Team Providers Care Strategies Analyst Name Role Phone No, PCP Primary Care Provider Unavailabl e [facility], Nursing Unavailable [phone] [facility], [facility] Unavailable [phone] REASON FOR VISIT pick plan and pcp Encounters Encounter Location Date Provider Diagnosis [address] [id number] 11/20/2024 [facility] Plan Of Treatment Next Appt Details Provider Name:Nursing [facility], 12/28/2024 01:30:00 PM, [address] [place] [address], [phone], Progress Notes * Mónica CLEANINGDOB: 1 (24 yo M)Acc No.[id number]:11/20/2024 Patient:?Mónica CLEANING Provider:?[facility] :2000???Age:24 Y???Sex:Male Gurpreet e:11/20/2024 Address:[address] [place] [phone] Pcp:PCP No Subjective: * Chief Complaints: * ???1. Pick plan and pcp. * HPI: ???Social Service:?Date of encounter?Date:11/20/2024.?Action Taken?[facility]? Enrollment in plan-online: [phone]; Picked plan and pcp to C3 w/[facility]; 1-2 days to process..?Follow-up Required:?no.?Pt comprehension?Pt agrees with plan, Patient understood process and assisted with process.? * Medical History:? Objective: * Vitals:? Assessment: Plan: * Images: Billing Information: Care Plan Details* * Sign off status: Completed true * Provider:?MACI [facility] Date:?11/20/2024 Generated for Joseph trinh/Cosmo/Livia on:?12/04/2024 06:00 PM EDT History and Physical Notes * HPI (History of Present Illness) Category Sub-Category Detail Notes Social Service Follow-up Required: no Pt comprehension Pt agrees with plan, Patient understood process and assisted with process Action Taken [facility] : Enrollment in an-online: [phone]; Picked plan and pcp to C3 w/[facility]; 1-2 days to process. Date of encounter Date:11/20/2024
[2024-12-04 19:05] LABS: MANUAL DIFF FLAG NO
[2024-12-04 19:07] LABS: Basophils Absolute Auto 0.1 X10*3/uL (0.0-0.2); Basophils Percent Auto 0.9 % (0-2); Eosinophils Absolute Auto 0.1 X10*3/uL (0.0-0.4); Hematocrit 46.5 % (42.0-52.0); Hemoglobin 15.6 g/dl (14.0-18.0); Imm Gran Abs Auto 0.01 X10*3/uL (0.00-0.03); Imm Gran Pct Auto 0.2 % (0.0-0.4); Lymphocytes Absolute Auto 2.3 X10*3/uL (1.2-4.9); Lymphocytes Percent Auto 39.2 % (20-40); Mean Corpuscular HGB Conc 33.5 g/dl (31.0-36.0); Mean Corpuscular Hemoglobin 29.9 pg (27.0-33.0); Mean Corpuscular Volume 89.1 fL (80.0-98.0); Mean Platelet Volume 9.8 fL (9.4-12.4); Monocytes Absolute Auto 0.6 X10*3/uL (0.1-1.2); Monocytes Percent Auto 10.4 % (2-11); Neutrophils Absolute Auto 2.8 x10*3/uL (2.0-8.3); Neutrophils Percent Auto 48.3 % (45-73); Platelet Count 282 X10*3/uL (160-400); Red Blood Count 5.22 X10*6/uL (4.60-5.80); Red Cell Distribution Width 12.2 % (11.0-16.0); White Blood Count 5.8 X10*3/uL (4.8-10.8)
[2024-12-04 19:10] LABS: Venous Blood Gas Refer to POC result
[2024-12-04 19:11] LABS: VBG Base Excess 4.8 mmol/L; VBG HCO3 30 mmol/L (22-26); VBG pCO2 48 mmHg; VBG pO2 41 mmHg
[2024-12-04] MEDS: Dextrose 5 % and Lactated Ring 1,000 ML 200 ML IVCONT ×2 (19:13→23:35)
[2024-12-04 19:15] VITALS: BP 123/80; PULSE 107; RESP 15; O2SAT 97
[2024-12-04] MEDS: diazePAM 10 MG/2 ML CARTRIDGE 2.5 MG IVPUSH ×3 (19:23→23:30)
[2024-12-04 19:32] LABS: Alanine Aminotransferase 24 U/L (0-40); Albumin Level 4.6 g/dL (3.5-5.0); Anion Gap 15 (12-20); Aspartate Amino Transferase 37 U/L (5-37); Bilirubin Direct 0.4 mg/dL (0.0-0.5); Bilirubin Total 1.2 mg/dL (0.0-1.0); Blood Urea Nitrogen 17 mg/dL (9-16); Calcium 10.6 mg/dL (8.4-10.2); Carbon Dioxide 26 mmol/L (22-29); Chloride 106 mmol/L (96-108); Creatinine Clr Calc Pharmacy 133.2; Estimated Glomerular Filt Rate > 60; Glucose Random 86 mg/dL (60-115); Potassium 4.2 mmol/L (3.3-5.1); Sodium 143 mmol/L (135-145); Total Protein 8.1 g/dL (6.5-8.0)
[2024-12-04 19:37] LABS: Alkaline Phosphatase 48 U/L (39-117)
[2024-12-04 19:53] VITALS: BP 122/76; PULSE 100; RESP 16; O2SAT 99
--- NOTE | 2024-12-04 20:29 | PM.EVENT ---
Documented by User: Estefani Weir NP 12/04/24 21:04 Event Note Date of Service: 12/04/24 Event Note: 24-year-old male with question of schizophrenia and autism spectrum disorder, no other PMH, admitted to adult Psychiatry 11/30/2024. Shortly after admission, the patient became catatonic, minimally verbal, with very minimal PO intake x 5 days and was then transferred to hospitalist service. The pt was initially given Diazepam 10 mg IM with no response. Now transferred to the ICU for management of further benzo challenge and parental nutrition. Time Spent With Patient Time: Total time managing care of this patient today ____ minutes. Documented by User: Austin Jiang MD 12/05/24 15:36 Event Note Date of Service: 12/05/24
[2024-12-04] MEDS: Parenteral Nutrition 1,320 ML 55 ML IV (21:16)
[2024-12-05] VITALS (18 sets, daily range): BP systolic 103–133; BP diastolic 55–86; PULSE 73–102; RESP 15–20; TEMP 36.3–37.3; O2SAT 96–100; BMI 28.9
--- NOTE | 2024-12-05 01:04 | HE.ICUCC ---
ICU Critical Care Nursing Note Assumed care of patient at 1900, transferred from [facility] Patient in severe catatonic state, rigid, does not respond to verbal or tactile stimuli. Sinus rhythm/sinus tach on telemetry. LS clear/diminished Bladder scanned for 565 ml/ straight catheterized for 200ml. +BS x4/hypoactive, abdomen soft/nontender Skin is dry/intact 1:1 sitter at bedside for safety Pateint receiving PPN/ D5LR / Valium 2.5mg Q2H Vital signs stable.
[2024-12-05] MEDS: diazePAM 10 MG/2 ML CARTRIDGE 2.5 MG IVPUSH ×12 (01:34→23:48)
[2024-12-05] MEDS: Dextrose 5 % and Lactated Ring 1,000 ML 200 ML IVCONT ×3 (04:19→14:48)
[2024-12-05 05:55] LABS: VBG Base Excess 6.3 mmol/L; VBG HCO3 30 mmol/L (22-26); VBG pCO2 42 mmHg; VBG pH 7.46 (7.32-7.43); VBG pO2 68 mmHg
[2024-12-05 06:08] LABS: MANUAL DIFF FLAG NO
[2024-12-05 06:16] LABS: Basophils Absolute Auto 0.1 X10*3/uL (0.0-0.2); Basophils Percent Auto 1.3 % (0-2); Eosinophils Absolute Auto 0.1 X10*3/uL (0.0-0.4); Eosinophils Percent Auto 2.7 % (0-4); Hematocrit 40.5 % (42.0-52.0); Imm Gran Abs Auto 0.01 X10*3/uL (0.00-0.03); Imm Gran Pct Auto 0.3 % (0.0-0.4); Lymphocytes Absolute Auto 1.8 X10*3/uL (1.2-4.9); Lymphocytes Percent Auto 47.6 % (20-40); Mean Corpuscular HGB Conc 32.1 g/dl (31.0-36.0); Mean Corpuscular Hemoglobin 29.1 pg (27.0-33.0); Mean Corpuscular Volume 90.8 fL (80.0-98.0); Monocytes Absolute Auto 0.4 X10*3/uL (0.1-1.2); Monocytes Percent Auto 10.4 % (2-11); Neutrophils Absolute Auto 1.4 x10*3/uL (2.0-8.3); Neutrophils Percent Auto 37.7 % (45-73); Platelet Count 260 X10*3/uL (160-400); Red Blood Count 4.46 X10*6/uL (4.60-5.80); White Blood Count 3.8 X10*3/uL (4.8-10.8)
[2024-12-05 06:30] LABS: Alanine Aminotransferase 23 U/L (0-40); Albumin Level 3.8 g/dL (3.5-5.0); Alkaline Phosphatase 38 U/L (39-117); Anion Gap 11 (12-20); Aspartate Amino Transferase 35 U/L (5-37); Bilirubin Total 0.9 mg/dL (0.0-1.0); Blood Urea Nitrogen 13 mg/dL (9-16); Calcium 9.2 mg/dL (8.4-10.2); Carbon Dioxide 26 mmol/L (22-29); Chloride 110 mmol/L (96-108); Creatinine Clr Calc Pharmacy 154.1; Estimated Glomerular Filt Rate > 60; Glucose Random 114 mg/dL (60-115); Phosphorus 3.2 mg/dL (2.7-4.5); Potassium 3.8 mmol/L (3.3-5.1); Sodium 143 mmol/L (135-145); Total Protein 6.4 g/dL (6.5-8.0)
[2024-12-05 06:40] LABS: Venous Blood Gas Refer to POC result
[2024-12-05] MEDS: Erythromycin Base 0.5% Oph Oin 1 GM TUBE 1 CM EYE-BOTH ×4 (08:06→19:46)
--- NOTE | 2024-12-05 10:24 | MHC.CLN ---
PT TRANSFERRED TO ICU FROM ADULT PSYCH UNIT PT WITH POOR PO X 5 DAYS DISCUSSED AT ROUNDS WITH MD REGULAR DIET IN PLACE, HOWEVER PT IS NOT ACCEPTING PO PPN TO CONTINUE DISCUSSED WITH PHARMACY RECOMMEND INCREASING PPN TO 75ML/HR TO PROVIDE 918KCALS, 180G DEXTROSE, 77G PROTEIN CHECK TRIGS AND REPLETE LYTES NEEDED GOAL TO DECREASE PPN PO INTAKE IMPROVES SEE ALSO FULL CLINICAL NUTRITION ASSESSMENT
--- NOTE | 2024-12-05 10:39 | PM.PSYCN ---
History of Present Illness Date of Service: 12/05/24 Chief Complaint: Catatonia need for parental nutrition Requesting physician: Austin Jiang Discussed with referring provider: Yes Sources of Information: patient interviewed, chart reviewed and crisis/core team assessment reviewed HPI Narrative: Patient is a 24-year-old male with history of autism, newly diagnosed schizophrenia and now catatonia who initially presented to psychiatric unit for disorganized behaviors (See HPI below) but then developed severe catatonia, needing to be transferred to the ICU for IV benzodiazepines, IV fluids, TPN. Patient was 1st sent to the medical floor. Since there is a national shortage of liquid Ativan, He received midazolam 2 mg IV however patient had no response. He was then given diazepam 10 mg IV and within 30 seconds, he relaxed his muscles, folded his arms, turned over on his side and moved his legs, 1st natural movements observed for several days. Vegetable Specker collaborated with Dr. Lira and after literature review, both agreed that patient required immediate IV diazepam treatment to prevent patient from progressing towards a malignant catatonia; since patient had demonstrated initial response to diazepam he should be continued on diazepam; the literature recommends diazepam IV infusion at 10mg/500ml saline at 1.25mg/hour; diazepam infusion not available per hospital formulary so agreed to diazepam 2.5 mg IV push q.2 hours. Hospitalist team/medical floor nursing staff felt patient should be observed on ICU for this administration and he was transferred to the ICU. In the ICU, Patient remains with severe catatonia though rigidity seems remain resolved, marking initial effective response to diazepam; to verbal commands, it appears patient is trying to open his eyes however they remain closed. Negativism remains (resistance of examine his manipulation with equal strength). Vegetable Specker discussed case with Dr. Lira and Dr. Jiang It was agreed to continue this course of treatment for about 48 hours and reassess. Patient's father present at bedside. Initially he had concerns about treatment, feeling challenged to accept that benzodiazepines, which normally sedate people, can be the treatment for someone who appears sedated. Vegetable Specker spent about an hour providing education, explaining catatonia, its possible etiologies and its necessary treatments including the potential for needing ECT, if benzodiazepines do not prove effective. Patient's father Brock asked well thought out questions and with continued discussion accepted the need for treatment with benzodiazepines. Patient's father said that a family member of theirs was a neurologist; communications writer strongly encouraged his father to discuss this case, catatonia and its treatment with there physician family member; communications writer also offered to personally talk to this person. HPI: Patient is a 24-year-old male with history of schizophrenia and autism who self presented due to self dialogue being and delusions secondary to medication noncompliance. Per crisis report, patient's father brought him to ER due to concerns of delusions, dissociation and self dialoguing. Patient did not complain of anything physically and mentally in ER. Poor eye contact. Difficult to engage. Responding with one to two-word answers. Denies SI/HI/VH/AH. Patient's father reports history of being diagnosed with autism as a child and schizophrenia as most recent. Patient was recently discharged from [facility] earlier this month however was not medication compliant. Patient does not have outpatient psychiatric providers. During admission assessment patient presents alert and oriented x3. Calm and cooperative. Declined to meet with this communications writer in office; lying on bed staring at ceiling. Patient reports feeling okay ; patient stated, my dad dropped me off because he was worried about me. I do not know what about . Patient reports he was recently discharged from [facility] but was unable to give reasoning for hospitalization. No delusional statements were made during assessment. Was not observed responding to internal stimuli. Patient denies SI/HI/VH/AH. Patient reports that he is willing to restart on his home medication of Risperdal. Past Psychiatric History: Does not have outpatient psychiatric providers. Recently discharged from [facility] 11/2024. This is patient's 2nd inpatient psychiatric hospitalization. Denies history of SA/SIB. Additional history: Father reports patient diagnosed with autism since 2 years old. Patient has been living in [place] with his mother until a few months ago when she sent him a peer back to [place] where his father lives. On his way to [place], at a stop off in [facility], he got stuck, was confused, pacing around until police were able to get a back to [place]. Father says he at 1st took him to stay at a skilled nursing however the skilled nursing had concerns due to patient's odd behavior, staring excessively, seemingly not aware of his surroundings, not responding when talk to and so sent him to [facility]. At 1 point patient was running around, with rapid speech but not clear if this was before after [facility]. At [facility] they started him on Risperdal 1 mg b.i.d. however it seems that was a limited trial and that patient did not continue taking on discharge. Patient went back to the skilled nursing however skilled nursing remained with some concerns and crisis was called. Patient came to [facility]; it seems the plan was perhaps to go to [facility] but patient ended up getting admitted to [facility] psychiatric unit. Patient's father says that they have been growing concerns that he has psychotic symptoms and father has observed him responding to internal stimuli. Hospital course: On admission, patient was talking but was limited. He said that his father dropped him off at the hospital because he was worried about him. Patient agreed to restart recently prescribed Risperdal. On 11/30, patient received risperidone 1 mg b.i.d. and again on 12/01 Risperidone 1mg BID. However risperidone was discontinued as patient presented with catatonic symptoms including minimal spontaneous words (which maybe a part of baseline), waxy flexibility, appears internally preoccupied, very minimal oral intake, sitting on his bed not leaving his room; attempted to give oral ativan but declined. Patients catatonic symptoms worsened and he was reported as being more withdrawn with negativism, mutism and continued waxy flexibility. National shortage of IV/IM Ativan, so on 12/02 He was given diazepam 5mg IM with limited effect; Ativan 1 mg p.o. t.i.d. scheduled however patient continued to refuse. On 12/03, catatonia persisted and some degree of rigidity was noted though patient afebrile and with only mild hypertension/tachycardia. Patient remained not taking any p.o. fluid/food, concern for dehydration and so labs were ordered showing moderate increase in CPK 400's, though BUN/creatinine WNL. Patient remained having hardly move for several days and was observed with a fixed, staring gaze, no scanning of the environment at all, little blinking, immobile, gripping the side of the bed and not moving his arms; patient also demonstrated negativism, resisting examiner's attempts to move patient resulting in rigidly; patient not responding to any voice commands, completely mute, not eating, not drinking and incontinent. Patient not with autonomic instability and afebrile however the sudden and severe onset of catatonic symptoms with altered mental status required administration of IV benzodiazepines to prevent patient's catatonia from becoming malignant catatonia. Case was discussed with ALVARO Enriquez and hospitalist team who agreed with the need to start IV benzodiazepines, IV fluids, TPN and thus to move patient to medical floor. On 12/04, as patient was being prepared for transfer to medical floor, Vegetable Specker and renal social worker met with patient's father who was on the unit who provided additional history. Vegetable Specker thoroughly discussed catatonia, providing education (including website to look at for further explanations), its causes and its necessary treatments which patient's father understood and agreed. Past Psychiatric History: Does not have outpatient psychiatric providers. Recently discharged from [facility] 11/2024. This is patient's 2nd inpatient psychiatric hospitalization. Denies history of SA/SIB. [facility] Medical History (Updated 12/07/24 @ 13:47 by Phan Saucedo MD) Autism spectrum disorder Family History: Denies Social History: Homeless. Single. No kids. Unemployed. High school diploma. Trauma History: Denies Diagnostics Vital Signs (24Hr): Vital Signs - 24 hr 12/04/24 15:52 12/04/24 19:15 12/04/24 19:53 Temperature 99.3 F Pulse Rate 112 H 107 H 100 Respiratory Rate 16 15 16 Blood Pressure 125/91 H 123/80 122/76 Pulse Oximetry 99 97 99 Oxygen Delivery Method Room Air Room Air Room Air 12/05/24 00:00 12/05/24 00:31 12/05/24 01:07 Temperature 97.8 F Pulse Rate 90 87 85 Respiratory Rate 16 16 19 Blood Pressure 110/66 110/86 106/68 Pulse Oximetry 96 98 96 Oxygen Delivery Method Room Air Room Air Room Air 12/05/24 02:07 12/05/24 03:04 12/05/24 04:00 Temperature 97.4 F Pulse Rate 82 81 88 Respiratory Rate 16 17 18 Blood Pressure 108/69 105/67 103/55 L Pulse Oximetry 97 97 97 Oxygen Delivery Method Room Air Room Air Room Air 12/05/24 05:27 12/05/24 06:15 12/05/24 07:20 Temperature Pulse Rate 84 82 80 Respiratory Rate 18 17 20 Blood Pressure 132/77 113/68 120/70 Pulse Oximetry 97 98 98 Oxygen Delivery Method Room Air Room Air Room Air 12/05/24 08:00 12/05/24 09:11 Temperature 97.6 F Pulse Rate 89 78 Respiratory Rate 20 16 Blood Pressure 133/83 124/68 Pulse Oximetry 99 98 Oxygen Delivery Method Room Air Room Air BMI result Body Mass Index 28.9 Labs 12/07/24 05:09 12/07/24 05:09 Labs: Laboratory Results - last 48 hr 12/04/24 12/04/24 12/04/24 18:42 18:53 19:05 WBC 5.8 RBC 5.22 Hgb 15.6 Hct 46.5 MCV 89.1 MCH 29.9 MCHC 33.5 RDW 12.2 Plt Count 282 MPV 9.8 Immature Gran % (Auto) 0.2 Neut % (Auto) 48.3 Lymph % (Auto) 39.2 [place] % (Auto) 10.4 Eos % (Auto) 1.0 Baso % (Auto) 0.9 Lymph # (Auto) 2.3 [place] # (Auto) 0.6 Eos # (Auto) 0.1 Baso # (Auto) 0.1 Abs Immat Gran (auto) 0.01 Absolute Neuts (auto) 2.8 Absolute Nucleated RBC 0.000 Nucleated RBC % (auto) 0.0 VBG pH 7.40 VBG pCO2 48 VBG pO2 41 VBG HCO3 30 H VBG O2 Saturation 65.0 VBG Base Excess 4.8 Sodium 143 Potassium 4.2 Chloride 106 Carbon Dioxide 26 Anion Gap 15 BUN 17 H Creatinine 1.03 Estim Creat Clear Calc 133.2 Estimated GFR > 60 Random Glucose 86 Calcium 10.6 H Phosphorus Magnesium Total Bilirubin 1.2 H Direct Bilirubin 0.4 AST 37 ALT 24 Alkaline Phosphatase 48 Total Creatine Kinase 574 H Total Protein 8.1 H Albumin 4.6 12/05/24 12/05/24 05:50 05:52 WBC 3.8 L RBC 4.46 L Hgb 13.0 L Hct 40.5 L MCV 90.8 MCH 29.1 MCHC 32.1 RDW 12.0 Plt Count 260 MPV 10.0 Immature Gran % (Auto) 0.3 Neut % (Auto) 37.7 L Lymph % (Auto) 47.[address] [place] % (Auto) 10.4 Eos % (Auto) 2.7 Baso % (Auto) 1.3 Lymph # (Auto) 1.8 [place] # (Auto) 0.4 Eos # (Auto) 0.1 Baso # (Auto) 0.1 Abs Immat Gran (auto) 0.01 Absolute Neuts (auto) 1.4 L Absolute Nucleated RBC 0.000 Nucleated RBC % (auto) 0.0 VBG pH 7.46 H VBG pCO2 42 VBG pO2 68 VBG HCO3 30 H VBG O2 Saturation 93.0 VBG Base Excess 6.3 Sodium 143 Potassium 3.8 Chloride 110 H Carbon Dioxide 26 Anion Gap 11 L BUN 13 Creatinine 0.89 Estim Creat Clear Calc 154.1 Estimated GFR > 60 Random Glucose 114 Calcium 9.2 D Phosphorus 3.2 Magnesium 2.0 Total Bilirubin 0.9 Direct Bilirubin AST 35 ALT 23 Alkaline Phosphatase 38 L Total Creatine Kinase Total Protein 6.4 L Albumin 3.8 Mental Status Exam Mental Status Exam Narrative: Moving a little more naturally on his own; eyes closed; still demonstrating negativism; patient sometimes makes some responsive eye movements when his name is called; completely mute, not eating/drinking; Medications Medications Current Medications Diazepam (Diazepam 10 Mg/2 Ml Cartridge) 2.5 mg IVPUSH Q2H [facility] Last Admin: 12/05/24 09:52 Dose: 2.5 mg Enoxaparin Sodium (Enoxaparin Sodium 40 Mg/0.4 Ml Syringe) 40 mg SUBCUT Q24H [facility] Last Admin: 12/04/24 17:21 Dose: 40 mg Erythromycin (Erythromycin Base 0.5% Oph Oin 1 Gm Tube) 1 cm EYE-BOTH QID [facility] Last Admin: 12/05/24 08:06 Dose: 1 cm Nutrition (Parenteral) (Parenteral Nutrition) 1,320 mls @ 55 mls/hr IV .Q24H [facility]; Protocol Stop: 12/05/24 20:59 Last Admin: 12/04/24 21:16 Dose: 55 mls/hr Dextrose/Lactated Ringer's (D5lr) 1,000 mls @ 200 mls/hr IVCONT .Q5H [facility] Last Admin: 12/05/24 10:13 Dose: 200 mls/hr Nutrition (Parenteral) (Parenteral Nutrition) 1,800 mls @ 75 mls/hr IV .Q24H [facility]; Protocol Stop: 12/06/24 20:59 Pharmacy Consult (Consult Rx Parenteral Nutrition Ordering) 1 each MISCELLANE DAILY PRN PRN Reason: Consult order Sodium Chloride (0.9 % Sodium Chloride Flush 3 Ml Syringe) 3 ml IVFLUSH QSHIFT [facility] Last Admin: 12/05/24 08:06 Dose: Not Given Allergies Allergies Allergy/AdvReac Type Severity Reaction Status Date / Time No Known Allergies Allergy Verified 11/28/24 13:56 Assessment & Plan Assessment & Plan (1) Catatonia: Status: Acute Code(s): F06.1 - Catatonic disorder due to known physiological condition Assessment and Plan: Severe (2) Schizophrenia: Status: Acute Code(s): F20.9 - Schizophrenia, unspecified (3) Autism spectrum disorder: Status: Acute Code(s): F84.0 - Autistic disorder Plan Patient is a 24-year-old male with history of autism, newly diagnosed schizophrenia and now catatonia who initially presented to psychiatric unit for disorganized behaviors (See HPI below) but then developed severe catatonia, needing to be transferred to the ICU for IV benzodiazepines, IV fluids, TPN. Patient was 1st sent to the medical floor. Since there is a national shortage of liquid Ativan, He received midazolam 2 mg IV however patient had no response. He was then given diazepam 10 mg IV and within 30 seconds, he relaxed his muscles, folded his arms, turned over on his side and moved his legs, 1st natural movements observed for several days. Vegetable Specker collaborated with Dr. Lira and after literature review, both agreed that patient required immediate IV diazepam treatment to prevent patient from progressing towards a malignant catatonia; since patient had demonstrated initial response to diazepam he should be continued on diazepam; the literature recommends diazepam IV infusion at 10mg/500ml saline at 1.25mg/hour; diazepam infusion not available per hospital formulary so agreed to diazepam 2.5 mg IV push q.2 hours. Hospitalist team/medical floor nursing staff felt patient should be observed on ICU for this administration and he was transferred to the ICU. In the ICU, Patient remains with severe catatonia though rigidity seems remain resolved, marking initial effective response to diazepam; to verbal commands, it appears patient is trying to open his eyes however they remain closed. Negativism remains (resistance of examine his manipulation with equal strength). Vegetable Specker discussed case with Dr. Lira and Dr. Jiang It was agreed to continue this course of treatment for about 48 hours and reassess. Impression: It is difficult to know the etiology of catatonia. People with autism, psychotic disorders, or taking a antipsychotic medications are all at increased risk for catatonia and patient has all 3 risk factors. Patient's catatonia remains severe but has improved a little with IV diazepam. Discussed case thoroughly with Dr. Lira who agrees that current treatment with IV diazepam 2.5 mg Q2H is appropriate and necessary treatment hoping to resolve catatonia and prevent malignant catatonia. Plan: Continue with IV diazepam 2.5 mg q.2h; will reassess If diazepam does not improve catatonic symptoms, will switch to IV Ativan If catatonia persists despite benzodiazepine being treatment, next phase of treatment is ECT Currently patient is on a Section [address] (patient signed a 3 day notice; filed in court) Will try to reach out to mother for additional information Total time managing care of this patient today ____ minutes. Guardian/Caregiver educated on: diagnosis, medication risk/benefits, ECT, therapeutic strategies and medical condition Informed Consent: understands, does not understand and further education needed
[2024-12-05 10:41] LABS: Triglycerides 53 mg/dL (<150)
[2024-12-05] MEDS: Enoxaparin Sodium 40 MG/0.4 ML SYRINGE SUBCUT (13:36)
--- NOTE | 2024-12-05 14:33 | MHC.CM.PN ---
Pt is not able to converse or participate in CM assessment at this time d/t medical condition. Information obtained from EMR and ICU care team. Pt admitted from [facility]: was staying at [facility] prior to admission: hx of INPT stays for schizophrenia. Some family residing in area but not able to care for pt: D/C planning ongoing but will likely include pt returning to INPT psych for med adjustments. CM to follow
--- NOTE | 2024-12-05 15:38 | P.PNCC_ITS ---
Subjective Subjective Date of Service: 12/05/24 Interval History: 24-year-old gentleman with underlying schizophrenia and autism spectrum disorder admitted to psychiatry on for ATN with disorientation and erratic behavior with further decompensation 2 catatonic state requiring transferred to intensive care unit on 12/04/2024 for close monitoring for high-dose IV diazepam therapy. No events overnight. No significant changes with underlying catatonic state. Critical Care Time (minutes): 0 Physical Exam 2 Vital Signs: Vital Signs: Last Vital Signs Temp 98.5 F 12/05/24 12:00 Pulse 81 12/05/24 14:00 Resp 18 12/05/24 14:00 BP 124/75 12/05/24 14:00 Pulse Ox 99 12/05/24 14:00 O2 Del Method Room Air 12/05/24 14:00 BMI result Body Mass Index 28.9 Const: General: no acute distress and lethargic (Arousable to noxious stimuli, rigid with care) Orientation/consciousness: lethargic (Arousable to noxious stimuli, rigid with care) Eyes: Sclerae: sclerae normal EOM: EOMs intact bilaterally Neck: Neck: Yes no lymphadenopathy, Yes trachea midline and Yes supple Resp: Effort & Inspection: normal respiratory effort and no respiratory distress Auscultation: clear to auscultation bilaterally Cardio: Rate: regular rate Rhythm: regular rhythm Heart sounds: no gallops, no murmurs and no rubs GI: Palpation (GI): Soft to palpation and Other GI palpation findings present ( Nontender) Auscultation: normal bowel sounds Extrem: General: Yes no pedal edema, No clubbing and No cyanosis Objective Data Labs 12/05/24 05:50 12/05/24 05:50 Labs: Laboratory Results - last 24 hr 12/04/24 12/04/24 12/04/24 18:42 18:53 19:05 WBC 5.8 RBC 5.22 Hgb 15.6 Hct 46.5 MCV 89.1 MCH 29.9 MCHC 33.5 RDW 12.2 Plt Count 282 MPV 9.8 Immature Gran % (Auto) 0.2 Neut % (Auto) 48.3 Lymph % (Auto) 39.2 [place] % (Auto) 10.4 Eos % (Auto) 1.0 Baso % (Auto) 0.9 Lymph # (Auto) 2.3 [place] # (Auto) 0.6 Eos # (Auto) 0.1 Baso # (Auto) 0.1 Abs Immat Gran (auto) 0.01 Absolute Neuts (auto) 2.8 Absolute Nucleated RBC 0.000 Nucleated RBC % (auto) 0.0 VBG pH 7.40 VBG pCO2 48 VBG pO2 41 VBG HCO3 30 H VBG O2 Saturation 65.0 VBG Base Excess 4.8 Sodium 143 Potassium 4.2 Chloride 106 Carbon Dioxide 26 Anion Gap 15 BUN 17 H Creatinine 1.03 Estim Creat Clear Calc 133.2 Estimated GFR > 60 Random Glucose 86 Calcium 10.6 H Phosphorus Magnesium Total Bilirubin 1.2 H Direct Bilirubin 0.4 AST 37 ALT 24 Alkaline Phosphatase 48 Total Creatine Kinase 574 H Total Protein 8.1 H Albumin 4.6 Triglycerides 12/05/24 12/05/24 12/05/24 05:50 05:52 10:23 WBC 3.8 L RBC 4.46 L Hgb 13.0 L Hct 40.5 L MCV 90.8 MCH 29.1 MCHC 32.1 RDW 12.0 Plt Count 260 MPV 10.0 Immature Gran % (Auto) 0.3 Neut % (Auto) 37.7 L Lymph % (Auto) 47.6 H [place] % (Auto) 10.4 Eos % (Auto) 2.7 Baso % (Auto) 1.3 Lymph # (Auto) 1.8 [place] # (Auto) 0.4 Eos # (Auto) 0.1 Baso # (Auto) 0.1 Abs Immat Gran (auto) 0.01 Absolute Neuts (auto) 1.4 L Absolute Nucleated RBC 0.000 Nucleated RBC % (auto) 0.0 VBG pH 7.46 H VBG pCO2 42 VBG pO2 68 VBG HCO3 30 H VBG O2 Saturation 93.0 VBG Base Excess 6.3 Sodium 143 Potassium 3.8 Chloride 110 H Carbon Dioxide 26 Anion Gap 11 L BUN 13 Creatinine 0.89 Estim Creat Clear Calc 154.1 Estimated GFR > 60 Random Glucose 114 Calcium 9.2 D Phosphorus 3.2 Magnesium 2.0 Total Bilirubin 0.9 Direct Bilirubin AST 35 ALT 23 Alkaline Phosphatase 38 L Total Creatine Kinase 502 H Total Protein 6.4 L Albumin 3.8 Triglycerides 53 Progress Note: A&P Assessment and plan (1) Schizophrenia: Status: Acute (2) Catatonia: Status: Acute Plan Assessment: 24-year-old gentleman with underlying schizophrenia admitted with disorientation and erratic behavior to psychiatry with further decompensation to catatonia, now monitored in the intensive care unit for high-dose IV benzodiazepine therapy Plan: Neuro: No acute issues. Cardiac: No acute issues. Pulmonary: No acute issues. Renal: No acute issues. Endo: No acute issues. GI: No acute issues. ID: No acute issues Heme/Onc: No acute issues. Psych: Catatonia, continues on IV diazepam per Psychiatry recommendations. Miscellaneous: No acute issues. Prophylaxis: Pneumatic compression Diet: PPN Quality Stroke Does the patient have a stroke diagnosis?: No VTE Prior VTE?: No VTE Risk Level:: Medical - moderate - high VTE Device Contraindication: Treatment Not Indicated VTE Drug Contraindication: N/A - Med Ordered
[2024-12-05] MEDS: Parenteral Nutrition 1,800 ML 75 ML IV (21:03)
[2024-12-05] MEDS: 0.9 % Sodium Chloride Flush 3 ML SYRINGE IVFLUSH (21:37)
[2024-12-06] VITALS (20 sets, daily range): BP systolic 106–137; BP diastolic 67–98; PULSE 70–93; RESP 12–23; TEMP 36.5–37.4; O2SAT 91–99
[2024-12-06] MEDS: diazePAM 10 MG/2 ML CARTRIDGE 2.5 MG IVPUSH ×5 (01:49→08:58)
--- NOTE | 2024-12-06 04:36 | PC.NURSE ---
CARE ASSUMED 7PM...DOES NOT OPEN EYES TO VOICE OR STIMULI..OCASSIONALLY FLUTTERS EYES BUT NO TRACKING..OCASSIONALLY MOVES EXTREMETIES SEI-PURPOSEFULLY BUT NOT TO COMMAND..EXTREMETIES RIGID WITH POSITIONING AND/OR ROM CARE...NO VERBAL RESPONSE....RESPIRATIONS EASY..SAO2 96% ROOM AIR..BP STABLE...TPN RATE INCREASED FROM 55 CC/HR TO 75 CC/HR WITH NEW BAG AT 9PM..GLASS 25-30 CC/HR..PROVIDER AWARE...CONTINUES WITH Q2 HOUR DIAZEPAM 2.5 MG IVP..NO CHANGE IN MENTATION
[2024-12-06 05:35] LABS: VBG Base Excess 3.9 mmol/L; VBG HCO3 28 mmol/L (22-26); VBG pCO2 43 mmHg; VBG pH 7.42 (7.32-7.43); VBG pO2 95 mmHg
[2024-12-06 05:37] LABS: MANUAL DIFF FLAG NO
[2024-12-06 05:39] LABS: Basophils Percent Auto 0.7 % (0-2); Eosinophils Absolute Auto 0.1 X10*3/uL (0.0-0.4); Eosinophils Percent Auto 2.6 % (0-4); Hematocrit 37.7 % (42.0-52.0); Hemoglobin 12.6 g/dl (14.0-18.0); Imm Gran Abs Auto 0.01 X10*3/uL (0.00-0.03); Imm Gran Pct Auto 0.2 % (0.0-0.4); Lymphocytes Absolute Auto 2.1 X10*3/uL (1.2-4.9); Lymphocytes Percent Auto 48.5 % (20-40); Mean Corpuscular HGB Conc 33.4 g/dl (31.0-36.0); Mean Corpuscular Hemoglobin 30.2 pg (27.0-33.0); Mean Corpuscular Volume 90.4 fL (80.0-98.0); Mean Platelet Volume 9.8 fL (9.4-12.4); Monocytes Absolute Auto 0.4 X10*3/uL (0.1-1.2); Monocytes Percent Auto 8.5 % (2-11); Neutrophils Absolute Auto 1.7 x10*3/uL (2.0-8.3); Neutrophils Percent Auto 39.5 % (45-73); Platelet Count 233 X10*3/uL (160-400); Red Blood Count 4.17 X10*6/uL (4.60-5.80); Red Cell Distribution Width 11.9 % (11.0-16.0); White Blood Count 4.3 X10*3/uL (4.8-10.8)
[2024-12-06 05:41] LABS: Venous Blood Gas Refer to POC result
[2024-12-06 06:06] LABS: Alanine Aminotransferase 17 U/L (0-40); Albumin Level 3.6 g/dL (3.5-5.0); Alkaline Phosphatase 36 U/L (39-117); Anion Gap 11 (12-20); Aspartate Amino Transferase 31 U/L (5-37); Bilirubin Total 0.8 mg/dL (0.0-1.0); Blood Urea Nitrogen 9 mg/dL (9-16); Calcium 9.3 mg/dL (8.4-10.2); Carbon Dioxide 25 mmol/L (22-29); Chloride 111 mmol/L (96-108); Creatinine Clr Calc Pharmacy 163.3; Estimated Glomerular Filt Rate > 60; Glucose Random 100 mg/dL (60-115); Phosphorus 3.6 mg/dL (2.7-4.5); Potassium 3.9 mmol/L (3.3-5.1); Sodium 143 mmol/L (135-145); Total Protein 6.2 g/dL (6.5-8.0)
[2024-12-06] MEDS: Erythromycin Base 0.5% Oph Oin 1 GM TUBE 1 CM EYE-BOTH ×4 (08:06→21:03)
[2024-12-06] MEDS: 0.9 % Sodium Chloride Flush 3 ML SYRINGE IVFLUSH ×3 (08:08→23:29)
--- NOTE | 2024-12-06 10:09 | MHC.CLN ---
F/U DISCUSSED AT ROUNDS WITH MD REVIEWED LABS NOTED TRIG 53 PPN TO CONTINUE DISCUSSED WITH PHARMACY RECOMMEND INCREASING PPN TO MAX GOAL RATE 85ML/HR WITH 96G LIPIDS TO PROVIDE 2000 TOTAL KCALS (23KCALS/KG), 204G DEXTROSE, 87G PROTEIN (1.0G/KG) REPLETE LYTES NEEDED
[2024-12-06] MEDS: LORazepam 2 MG/ML VIAL IVPUSH ×3 (12:23→21:03)
--- NOTE | 2024-12-06 13:11 | PM.NEUROCN ---
History of Present Illness Data of Consult Service Date: 12/06/24 Primary Care Provider: Unknown Physician HPI Reason for consult: Catatonia 24 years old man with diagnosis of autism when psychotic disorder was transferred from psychiatric floor to medical floor because of clinical diagnosis of catatonia. Because of his inability to take liquids and he was transferred to ICU for hydration and dietary needs. There was no sign of any convulsion type of activity. Review of Systems Review of Systems: Could not be done with [facility] Social History Social History Household Members: None Household Members Other:: pt is admit fr M# for catatonia, not response to questions, JULIO CESAR Housing: Homeless Do you presently have visiting nurse or other home services: No Comment: 1:1 sitter at bedside Patient Tobacco Use Status: Never used Tobacco e-Cigarette/Vaping Use: Never Used Second Hand Smoke Exposure: No Use of substances other than those prescribed or required for medical reasons: Unable to respond Currently Displaying Signs/Symptoms of Drug Intoxication Withdrawal: No Advance Directives: No Advance Directives Information Provided: No Do you have a plan to hurt others: No Plan service: No Sexual orientation: Decline to Answer Meds Allergies Allergy/AdvReac Type Severity Reaction Status Date / Time No Known Allergies Allergy Verified 11/28/24 13:56 Active Medications: Current Medications Enoxaparin Sodium (Enoxaparin Sodium 40 Mg/0.4 Ml Syringe) 40 mg SUBCUT Q24H [facility] Last Admin: 12/05/24 13:36 Dose: 40 mg Erythromycin (Erythromycin Base 0.5% Oph Oin 1 Gm Tube) 1 cm EYE-BOTH QID [facility] Last Admin: 12/06/24 12:27 Dose: 1 cm Nutrition (Parenteral) (Parenteral Nutrition) 1,800 mls @ 75 mls/hr IV .Q24H [facility]; Protocol Stop: 12/06/24 20:59 Last Admin: 12/05/24 21:03 Dose: 75 mls/hr Nutrition (Parenteral) (Parenteral Nutrition) 2,040 mls @ 85 mls/hr IV .Q24H [facility]; Protocol Stop: 12/07/24 20:59 Pharmacy Consult (Consult Rx Parenteral Nutrition Ordering) 1 each MISCELLANE DAILY PRN PRN Reason: Consult order Sodium Chloride (0.9 % Sodium Chloride Flush 3 Ml Syringe) 3 ml IVFLUSH QSHIFT [facility] Last Admin: 12/06/24 08:08 Dose: 3 ml Home Medications ?Medication ?Instructions ?Recorded ?Confirmed ?Last Taken ?Type No Known Home Meds 12/04/24 12/04/24 Unknown History Physical Exam Vital Signs: Vital Signs: Last Vital Signs Temp 98.4 F 12/06/24 13:00 Pulse 86 12/06/24 13:00 Resp 15 12/06/24 13:00 BP 128/89 12/06/24 13:00 Pulse Ox 98 12/06/24 13:00 O2 Del Method Room Air 12/06/24 13:00 BMI result Body Mass Index 28.9 Neuro: Other: He was lying motionless with eyes closed. I tried to open his eyes forcefully but he was resisting bringing his eyes up. There was little bit back and forth movement of eyes. Once I stopped I examination, he forcibly closed them. He was resistant to passive movements of his limbs and would suddenly become rigid. When I touched his feet he withdrew. Reflexes were absent. He was not responding to verbal commands. Results Labs 12/06/24 05:29 12/06/24 05:29 Labs: Short CBC 12/06/24 Range/Units 05:29 WBC 4.3 L (4.8-10.8) X10*3/uL Hgb 12.6 L (14.0-18.0) g/dl Hct 37.7 L (42.0-52.0) % Plt Count 233 (160-400) X10*3/uL BMP 12/06/24 05:29 Sodium 143 Potassium 3.9 Chloride 111 H Carbon Dioxide 25 BUN 9 Creatinine 0.84 Calcium 9.3 Liver Function 12/06/24 Range/Units 05:29 Total Bilirubin 0.8 (0.0-1.0) mg/dL AST 31 (5-37) U/L ALT 17 (0-40) U/L Alkaline Phosphatase 36 L (39-117) U/L Albumin 3.6 (3.5-5.0) g/dL Assessment and Plan (1) Catatonia: Status: Acute This could be what is sometime described as either excited catatonia or later stages of catatonia. Some element of examination might suggest conversion disorder but overall clinical picture is more suggestive of catatonia. As far as treatment with electroconvulsive therapies concerned, there is no neurological contraindication. Procedures Date of Service Date of Service: 12/06/24
--- NOTE | 2024-12-06 13:44 | MHC.CM.PN ---
Pt continues care in ICU: followed by psych for tx of catatonia: Pt continues on a benzo challenge: D/C planning ongoing - pt will likely need to return to INPT psych. Pt's father Kvng, here to visit: interested in pursuing guardianship for pt. CM to follow
--- NOTE | 2024-12-06 13:59 | P.PNPSI_ITS ---
Subjective Subjective Date of Service: 12/06/24 Reason For Visit: Catatonia need for parental nutrition Interim History: Met with patient; discussed with Dr. Lira and Dr. Jiang as well as nursing team Patient remains with same minimal improvement observed when starting diazepam; he is moving on his own a little more naturally though still minimally. Will appeared to be trying to open his eyes sometimes when his name is called. Continues with negativism however otherwise is not rigid. Tractor Mechanic met with patient's father and stepmother Debra. Initially family expressed dissatisfaction with treatment and wanted patient transferred to [facility]. Dr. Jiang reached out to [facility] to discuss case and they declined to take patient at this time, not having a bed available and also not being able to provide ECT should patient require it. Patient's family accepted this. Tractor Mechanic again spent about an hour providing education on catatonia, its causes and its treatments. Dr. Lira also provided the family with printed out literature regarding these topics, including ECT. After discussion, patient's family seemed to agree with current treatment plan of continuing with benzodiazepines. Since patient had only a minimal response to IV diazepam, decision was made to switch to IV Ativan to see if this would be more effective; also discussed with family who agreed with this plan. Tractor Mechanic again offered to talk with family member who is a neurologist and gave them credit underwriter's contact information to pass along. Mental Status Exam Mental Status Exam Narrative: Moving a little more naturally on his own; eyes closed; still demonstrating negativism; patient sometimes makes some responsive eye movements when his name is called; completely mute, not eating/drinking; Diagnostics Vital Signs (24Hr): Vital Signs - 24 hr 12/05/24 14:00 12/05/24 15:53 12/05/24 19:57 Temperature 98.8 F 99.1 F Pulse Rate 81 102 H 97 Respiratory Rate 18 18 15 Blood Pressure 124/75 129/78 132/75 Pulse Oximetry 99 100 97 Oxygen Delivery Method Room Air Room Air Room Air 12/05/24 23:00 12/06/24 00:00 12/06/24 01:00 Temperature 99.3 F 99.1 F Pulse Rate 92 83 82 Respiratory Rate 18 22 H 21 H Blood Pressure 129/71 118/71 121/71 Pulse Oximetry 97 96 96 Oxygen Delivery Method Room Air Room Air Room Air 12/06/24 02:00 12/06/24 03:00 12/06/24 04:00 Temperature 98.8 F 98.8 F 98.4 F Pulse Rate 87 89 86 Respiratory Rate 15 21 H 21 H Blood Pressure 119/67 117/72 106/79 Pulse Oximetry 99 97 96 Oxygen Delivery Method Room Air Room Air Room Air 12/06/24 05:00 12/06/24 06:00 12/06/24 07:00 Temperature 98.4 F 98.4 F 98.2 F Pulse Rate 83 82 76 Respiratory Rate 19 21 H 18 Blood Pressure 123/89 123/72 119/78 Pulse Oximetry 98 96 98 Oxygen Delivery Method Room Air Room Air Room Air 12/06/24 08:00 12/06/24 09:00 12/06/24 10:00 Temperature 98.1 F 98.1 F 98.1 F Pulse Rate 85 73 76 Respiratory Rate 23 H 18 18 Blood Pressure 129/76 124/89 Pulse Oximetry 91 L 98 99 Oxygen Delivery Method Room Air Room Air Room Air 12/06/24 12:00 12/06/24 13:00 Temperature 98.4 F 98.4 F Pulse Rate 80 86 Respiratory Rate 21 H 15 Blood Pressure 125/86 128/89 Pulse Oximetry 98 98 Oxygen Delivery Method Room Air Room Air BMI result Body Mass Index 28.9 Labs 12/07/24 05:09 12/07/24 05:09 Labs: Laboratory Results - last 48 hr 12/04/24 12/04/24 12/04/24 18:42 18:53 19:05 WBC 5.8 RBC 5.22 Hgb 15.6 Hct 46.5 MCV 89.1 MCH 29.9 MCHC 33.5 RDW 12.2 Plt Count 282 MPV 9.8 Immature Gran % (Auto) 0.2 Neut % (Auto) 48.3 Lymph % (Auto) 39.2 [place] % (Auto) 10.4 Eos % (Auto) 1.0 Baso % (Auto) 0.9 Lymph # (Auto) 2.3 [place] # (Auto) 0.6 Eos # (Auto) 0.1 Baso # (Auto) 0.1 Abs Immat Gran (auto) 0.01 Absolute Neuts (auto) 2.8 Absolute Nucleated RBC 0.000 Nucleated RBC % (auto) 0.0 VBG pH 7.40 VBG pCO2 48 VBG pO2 41 VBG HCO3 30 H VBG O2 Saturation 65.0 VBG Base Excess 4.8 Sodium 143 Potassium 4.2 Chloride 106 Carbon Dioxide 26 Anion Gap 15 BUN 17 H Creatinine 1.03 Estim Creat Clear Calc 133.2 Estimated GFR > 60 Random Glucose 86 Calcium 10.6 H Phosphorus Magnesium Total Bilirubin 1.2 H Direct Bilirubin 0.4 AST 37 ALT 24 Alkaline Phosphatase 48 Total Creatine Kinase 574 H Total Protein 8.1 H Albumin 4.6 Triglycerides 12/05/24 12/05/24 12/05/24 05:50 05:52 10:23 WBC 3.8 L RBC 4.46 L Hgb 13.0 L Hct 40.5 L MCV 90.8 MCH 29.1 MCHC 32.1 RDW 12.0 Plt Count 260 MPV 10.0 Immature Gran % (Auto) 0.3 Neut % (Auto) 37.7 L Lymph % (Auto) 47.6 H [place] % (Auto) 10.4 Eos % (Auto) 2.7 Baso % (Auto) 1.3 Lymph # (Auto) 1.8 [place] # (Auto) 0.4 Eos # (Auto) 0.1 Baso # (Auto) 0.1 Abs Immat Gran (auto) 0.01 Absolute Neuts (auto) 1.4 L Absolute Nucleated RBC 0.000 Nucleated RBC % (auto) 0.0 VBG pH 7.46 H VBG pCO2 42 VBG pO2 68 VBG HCO3 30 H VBG O2 Saturation 93.0 VBG Base Excess 6.3 Sodium 143 Potassium 3.8 Chloride 110 H Carbon Dioxide 26 Anion Gap 11 L BUN 13 Creatinine 0.89 Estim Creat Clear Calc 154.1 Estimated GFR > 60 Random Glucose 114 Calcium 9.2 D Phosphorus 3.2 Magnesium 2.0 Total Bilirubin 0.9 Direct Bilirubin AST 35 ALT 23 Alkaline Phosphatase 38 L Total Creatine Kinase 502 H Total Protein 6.4 L Albumin 3.8 Triglycerides 53 12/06/24 12/06/24 05:29 05:30 WBC 4.3 L RBC 4.17 L Hgb 12.6 L Hct 37.7 L MCV 90.4 MCH 30.2 MCHC 33.4 RDW 11.9 Plt Count 233 MPV 9.8 Immature Gran % (Auto) 0.2 Neut % (Auto) 39.5 L Lymph % (Auto) 48.5 H [place] % (Auto) 8.5 Eos % (Auto) 2.6 Baso % (Auto) 0.7 Lymph # (Auto) 2.1 [place] # (Auto) 0.4 Eos # (Auto) 0.1 Baso # (Auto) 0.0 Abs Immat Gran (auto) 0.01 Absolute Neuts (auto) 1.7 L Absolute Nucleated RBC 0.000 Nucleated RBC % (auto) 0.0 VBG pH 7.42 VBG pCO2 43 VBG pO2 95 VBG HCO3 28 H VBG O2 Saturation 98.0 VBG Base Excess 3.9 Sodium 143 Potassium 3.9 Chloride 111 H Carbon Dioxide 25 Anion Gap 11 L BUN 9 Creatinine 0.84 Estim Creat Clear Calc 163.3 Estimated GFR > 60 Random Glucose 100 Calcium 9.3 Phosphorus 3.6 Magnesium 2.0 Total Bilirubin 0.8 Direct Bilirubin AST 31 ALT 17 Alkaline Phosphatase 36 L Total Creatine Kinase Total Protein 6.2 L Albumin 3.6 Triglycerides Medications Medications Current Medications Enoxaparin Sodium (Enoxaparin Sodium 40 Mg/0.4 Ml Syringe) 40 mg SUBCUT Q24H [facility] Last Admin: 12/05/24 13:36 Dose: 40 mg Erythromycin (Erythromycin Base 0.5% Oph Oin 1 Gm Tube) 1 cm EYE-BOTH QID [facility] Last Admin: 12/06/24 12:27 Dose: 1 cm Nutrition (Parenteral) (Parenteral Nutrition) 1,800 mls @ 75 mls/hr IV .Q24H [facility]; Protocol Stop: 12/06/24 20:59 Last Admin: 12/05/24 21:03 Dose: 75 mls/hr Nutrition (Parenteral) (Parenteral Nutrition) 2,040 mls @ 85 mls/hr IV .Q24H [facility]; Protocol Stop: 12/07/24 20:59 Pharmacy Consult (Consult Rx Parenteral Nutrition Ordering) 1 each MISCELLANE DAILY PRN PRN Reason: Consult order Sodium Chloride (0.9 % Sodium Chloride Flush 3 Ml Syringe) 3 ml IVFLUSH QSHIFT [facility] Last Admin: 12/06/24 08:08 Dose: 3 ml Allergies Allergies Allergy/AdvReac Type Severity Reaction Status Date / Time No Known Allergies Allergy Verified 11/28/24 13:56 Assessment & Plan Assessment & Plan (1) Catatonia: Status: Acute Code(s): F06.1 - Catatonic disorder due to known physiological condition (2) Schizophrenia: Status: Acute Code(s): F20.9 - Schizophrenia, unspecified (3) Autism spectrum disorder: Status: Acute Code(s): F84.0 - Autistic disorder Plan Patient is a 24-year-old male with history of autism, newly diagnosed schizophrenia and now catatonia who initially presented to psychiatric unit for disorganized behaviors (See HPI below) but then developed severe catatonia, needing to be transferred to the ICU for IV benzodiazepines, IV fluids, TPN. Patient was 1st sent to the medical floor. Since there is a national shortage of liquid Ativan, He received midazolam 2 mg IV however patient had no response. He was then given diazepam 10 mg IV and within 30 seconds, he relaxed his muscles, folded his arms, turned over on his side and moved his legs, 1st natural movements observed for several days. Tractor Mechanic collaborated with Dr. Lira and after literature review, both agreed that patient required immediate IV diazepam treatment to prevent patient from progressing towards a malignant catatonia; since patient had demonstrated initial response to diazepam he should be continued on diazepam; the literature recommends diazepam IV infusion at 10mg/500ml saline at 1.25mg/hour; diazepam infusion not available per hospital formulary so agreed to diazepam 2.5 mg IV push q.2 hours. Hospitalist team/medical floor nursing staff felt patient should be observed on ICU for this administration and he was transferred to the ICU. In the ICU, Patient remains with severe catatonia though rigidity seems remain resolved, marking initial effective response to diazepam; to verbal commands, it appears patient is trying to open his eyes however they remain closed. Negativism remains (resistance of examine his manipulation with equal strength). Tractor Mechanic discussed case with Dr. Lira and Dr. Jiang It was agreed to continue this course of treatment for about 48 hours and reassess. Impression: It is difficult to know the etiology of catatonia. People with autism, psychotic disorders, or taking a antipsychotic medications are all at increased risk for catatonia and patient has all 3 risk factors. Patient's catatonia remains severe but has improved a little with IV diazepam. Discussed case thoroughly with Dr. Lira who agrees that current treatment with IV diazepam 2.5 mg Q2H is appropriate and necessary treatment hoping to resolve catatonia and prevent malignant catatonia. Hospital course: 12/05 Patient remains with same minimal improvement observed when starting diazepam; he is moving on his own a little more naturally though still minimally. Will appeared to be trying to open his eyes sometimes when his name is called. Continues with negativism however otherwise is not rigid. Tractor Mechanic met with patient's father and stepmother Debra. Initially family expressed dissatisfaction with treatment and wanted patient transferred to [facility]. Dr. Jiang reached out to [facility] to discuss case and they declined to take patient at this time, not having a bed available and also not being able to provide ECT should patient require it. Patient's family accepted this. Tractor Mechanic again spent about an hour providing education on catatonia, its causes and its treatments, including ECT; explained ECT procedure as well. Dr. Lira also provided the family with printed out literature regarding these topics, including ECT. After discussion, patient's family seemed to agree with current treatment plan of continuing with benzodiazepines. Since patient had only a minimal response to IV diazepam, decision was made to switch to IV Ativan to see if this would be more effective; also discussed with family who agreed with this plan. Tractor Mechanic again offered to talk with family member who is a neurologist and gave them credit underwriter's contact information to pass along. Plan: DC IV diazepam 2.5 mg q.2h; has not improved catatonic symptoms other than minimally after about 36 hours Start Ativan IV 2 mg q.i.d.. If catatonia persists despite benzodiazepine being treatment, next phase of treatment is ECT Currently patient is on a Section [address] (patient signed a 3 day notice; filed in court) Will try to reach out to mother for additional information Neurology consult placed Brain MRI ordered Guardian/Caregiver educated on: diagnosis, medication risk/benefits, ECT and medical condition Informed Consent: understands, does not understand and further education needed Reason for continued inpatient stay Substantial Risk for: inability to function Time Spent With Patient Time: Total time managing care of this patient today ____ minutes.
--- NOTE | 2024-12-06 15:19 | PM.CCPN ---
Subjective Subjective Date of Service: 12/06/24 Interval History: 24-year-old gentleman with underlying schizophrenia and autism spectrum disorder admitted to psychiatry on for ATN with disorientation and erratic behavior with further decompensation 2 catatonic state requiring transferred to intensive care unit on 12/04/2024 for close monitoring for high-dose IV diazepam therapy. No events overnight. No significant changes with underlying catatonic state, though with some minor improvements in terms of external stimuli reaction. Critical Care Time (minutes): 0 Physical Exam Vital Signs: Vital Signs: Last Vital Signs Temp 98.6 F 12/06/24 14:00 Pulse 87 12/06/24 14:00 Resp 22 H 12/06/24 14:00 BP 137/98 H 12/06/24 14:00 Pulse Ox 99 12/06/24 14:00 O2 Del Method Room Air 12/06/24 14:00 BMI result Body Mass Index 28.9 Const: General: no acute distress and lethargic Orientation/consciousness: lethargic Eyes: Sclerae: sclerae normal EOM: EOMs intact bilaterally Neck: Neck: Yes no lymphadenopathy, Yes trachea midline and Yes supple Resp: Effort & Inspection: normal respiratory effort and no respiratory distress Auscultation: clear to auscultation bilaterally Cardio: Rate: regular rate Rhythm: regular rhythm Heart sounds: no gallops, no murmurs and no rubs GI: Palpation (GI): Soft to palpation and Other GI palpation findings present ( Nontender) Auscultation: normal bowel sounds Extrem: General: Yes no pedal edema, No clubbing and No cyanosis Objective Data Labs 12/06/24 05:29 12/06/24 05:29 Labs: Laboratory Results - last 24 hr 12/06/24 12/06/24 05:29 05:30 WBC 4.3 L RBC 4.17 L Hgb 12.6 L Hct 37.7 L MCV 90.4 MCH 30.2 MCHC 33.4 RDW 11.9 Plt Count 233 MPV 9.8 Immature Gran % (Auto) 0.2 Neut % (Auto) 39.5 L Lymph % (Auto) 48.5 H [place] % (Auto) 8.5 Eos % (Auto) 2.6 Baso % (Auto) 0.7 Lymph # (Auto) 2.1 [place] # (Auto) 0.4 Eos # (Auto) 0.1 Baso # (Auto) 0.0 Abs Immat Gran (auto) 0.01 Absolute Neuts (auto) 1.7 L Absolute Nucleated RBC 0.000 Nucleated RBC % (auto) 0.0 VBG pH 7.42 VBG pCO2 43 VBG pO2 95 VBG HCO3 28 H VBG O2 Saturation 98.0 VBG Base Excess 3.9 Sodium 143 Potassium 3.9 Chloride 111 H Carbon Dioxide 25 Anion Gap 11 L BUN 9 Creatinine 0.84 Estim Creat Clear Calc 163.3 Estimated GFR > 60 Random Glucose 100 Calcium 9.3 Phosphorus 3.6 Magnesium 2.0 Total Bilirubin 0.8 AST 31 ALT 17 Alkaline Phosphatase 36 L Total Protein 6.2 L Albumin 3.6 Progress Note: A&P Assessment and plan (1) Schizophrenia: Status: Acute (2) Catatonia: Status: Acute Plan Assessment: 24-year-old gentleman with underlying schizophrenia admitted with disorientation and erratic behavior to psychiatry with further decompensation to catatonia, now monitored in the intensive care unit for high-dose IV benzodiazepine therapy Plan: Neuro: Persistent encephalopathy, Neurology evaluation and MRI brain requested. Cardiac: No acute issues. Pulmonary: No acute issues. Renal: No acute issues. Endo: No acute issues. GI: No acute issues. ID: No acute issues Heme/Onc: No acute issues. Psych: Catatonia, IV diazepam switched to IV lorazepam per Psychiatry recommendations. Miscellaneous: No acute issues. Prophylaxis: Pneumatic compression Diet: PPN Quality Stroke Does the patient have a stroke diagnosis?: No VTE Prior VTE?: No VTE Risk Level:: Medical - moderate - high VTE Device Contraindication: Treatment Not Indicated VTE Drug Contraindication: N/A - Med Ordered
[2024-12-06] MEDS: Enoxaparin Sodium 40 MG/0.4 ML SYRINGE SUBCUT (16:23)
[2024-12-06] MEDS: Parenteral Nutrition 2,040 ML 85 ML IV (21:03)
[2024-12-07] VITALS (17 sets, daily range): BP systolic 114–135; BP diastolic 74–88; PULSE 68–94; RESP 12–22; TEMP 36.4–37.1; O2SAT 96–100
[2024-12-07 05:14] LABS: MANUAL DIFF FLAG NO
[2024-12-07 05:16] LABS: Basophils Percent Auto 0.8 % (0-2); Eosinophils Absolute Auto 0.1 X10*3/uL (0.0-0.4); Eosinophils Percent Auto 2.6 % (0-4); Hematocrit 39.8 % (42.0-52.0); Hemoglobin 13.5 g/dl (14.0-18.0); Imm Gran Abs Auto 0.01 X10*3/uL (0.00-0.03); Imm Gran Pct Auto 0.2 % (0.0-0.4); Lymphocytes Absolute Auto 2.1 X10*3/uL (1.2-4.9); Lymphocytes Percent Auto 42.9 % (20-40); Mean Corpuscular HGB Conc 33.9 g/dl (31.0-36.0); Mean Corpuscular Hemoglobin 30.1 pg (27.0-33.0); Mean Corpuscular Volume 88.8 fL (80.0-98.0); Mean Platelet Volume 9.6 fL (9.4-12.4); Monocytes Absolute Auto 0.4 X10*3/uL (0.1-1.2); Monocytes Percent Auto 7.8 % (2-11); Neutrophils Absolute Auto 2.3 x10*3/uL (2.0-8.3); Neutrophils Percent Auto 45.7 % (45-73); Platelet Count 234 X10*3/uL (160-400); Red Blood Count 4.48 X10*6/uL (4.60-5.80); Red Cell Distribution Width 11.7 % (11.0-16.0)
[2024-12-07 05:32] LABS: Albumin Level 3.7 g/dL (3.5-5.0); Anion Gap 11 (12-20); Blood Urea Nitrogen 10 mg/dL (9-16); Calcium 9.5 mg/dL (8.4-10.2); Carbon Dioxide 25 mmol/L (22-29); Chloride 108 mmol/L (96-108); Creatinine Clr Calc Pharmacy 178.1; Estimated Glomerular Filt Rate > 60; Glucose Random 96 mg/dL (60-115); Magnesium 2.1 mg/dL (1.6-2.6); Phosphorus 3.8 mg/dL (2.7-4.5); Sodium 140 mmol/L (135-145)
[2024-12-07] MEDS: 0.9 % Sodium Chloride Flush 3 ML SYRINGE IVFLUSH ×2 (07:29→17:11)
[2024-12-07] MEDS: LORazepam 2 MG/ML VIAL IVPUSH ×4 (08:00→22:01)
[2024-12-07] MEDS: Erythromycin Base 0.5% Oph Oin 1 GM TUBE 1 CM EYE-BOTH ×4 (08:00→22:02)
--- NOTE | 2024-12-07 09:45 | PM.CCPN ---
Subjective Subjective Date of Service: 12/07/24 Interval History: 24-year-old gentleman with underlying schizophrenia and autism spectrum disorder admitted to psychiatry on for ATN with disorientation and erratic behavior with further decompensation 2 catatonic state requiring transferred to intensive care unit on 12/04/2024 for close monitoring for high-dose IV diazepam therapy. No events overnight. No significant changes with switching therapy to IV Ativan. Continues to remain lethargic with response to noxious stimuli. Critical Care Time (minutes): 0 Physical Exam Vital Signs: Vital Signs: Last Vital Signs Temp 98.4 F 12/07/24 08:50 Pulse 76 12/07/24 08:50 Resp 20 12/07/24 08:50 BP 126/88 12/07/24 08:50 Pulse Ox 97 12/07/24 08:50 O2 Del Method Room Air 12/07/24 08:50 BMI result Body Mass Index 28.9 Const: General: no acute distress and lethargic (Response to noxious stimuli) Orientation/consciousness: lethargic (Response to noxious stimuli) Eyes: Sclerae: sclerae normal EOM: EOMs intact bilaterally Neck: Neck: Yes no lymphadenopathy, Yes trachea midline and Yes supple Resp: Effort & Inspection: normal respiratory effort and no respiratory distress Auscultation: clear to auscultation bilaterally Cardio: Rate: regular rate Rhythm: regular rhythm Heart sounds: no gallops, no murmurs and no rubs GI: Palpation (GI): Soft to palpation and Other GI palpation findings present ( Nontender) Auscultation: normal bowel sounds Extrem: General: Yes no pedal edema, No clubbing and No cyanosis Objective Data Labs 12/07/24 05:09 12/07/24 05:09 Labs: Laboratory Results - last 24 hr 12/07/24 05:09 WBC 5.0 RBC 4.48 L Hgb 13.5 L Hct 39.8 L MCV 88.8 MCH 30.1 MCHC 33.9 RDW 11.7 Plt Count 234 MPV 9.6 Immature Gran % (Auto) 0.2 Neut % (Auto) 45.7 Lymph % (Auto) 42.9 H [place] % (Auto) 7.8 Eos % (Auto) 2.6 Baso % (Auto) 0.8 Lymph # (Auto) 2.1 [place] # (Auto) 0.4 Eos # (Auto) 0.1 Baso # (Auto) 0.0 Abs Immat Gran (auto) 0.01 Absolute Neuts (auto) 2.3 Absolute Nucleated RBC 0.000 Nucleated RBC % (auto) 0.0 Sodium 140 Potassium 4.0 Chloride 108 Carbon Dioxide 25 Anion Gap 11 L BUN 10 Creatinine 0.77 Estim Creat Clear Calc 178.1 Estimated GFR > 60 Random Glucose 96 Calcium 9.5 Phosphorus 3.8 Magnesium 2.1 Albumin 3.7 Progress Note: A&P Assessment and plan (1) Schizophrenia: Status: Acute (2) Catatonia: Status: Acute Plan Assessment: 24-year-old gentleman with underlying schizophrenia admitted with disorientation and erratic behavior to psychiatry with further decompensation to catatonia, now monitored in the intensive care unit for high-dose IV benzodiazepine therapy Plan: Neuro: Persistent encephalopathy, Neurology service care appreciated. MRI brain without acute findings. Cardiac: No acute issues. Pulmonary: No acute issues. Renal: No acute issues. Endo: No acute issues. GI: No acute issues. ID: No acute issues Heme/Onc: No acute issues. Psych: Suspected catatonia, continues on IV lorazepam 2 mg every 6 hours. Suspect significant conversion component. Miscellaneous: No acute issues. Prophylaxis: Pneumatic compression Diet: PPN Quality Stroke Does the patient have a stroke diagnosis?: No VTE Prior VTE?: No VTE Risk Level:: Medical - moderate - high VTE Device Contraindication: Treatment Not Indicated VTE Drug Contraindication: N/A - Med Ordered
--- NOTE | 2024-12-07 10:06 | P.CDIM_ITS ---
PROVIDER RESPONSE TEXT: To clarify, the appropriate diagnosis supported by the clinical indicators: Other (explain): Unclear, suspect conversion QUERY TEXT: PHYSICIAN'S DOCUMENTATION REQUEST Date of Query: 12/07/2024 09:56 AM EDT Patient Name: Elva Cleaning Admit Date: 12/04/2024 Dear Austin Jiang MD, A review of the medical record indicates additional documentation may be needed. Please review below and update the documentation accordingly. Clinical Indicators: admitted with catatonia hx Schizophrenia and autism spectrum disorder lethargic with response to noxious stimuli persistent Encephalopathy treatment with PPN and high-dose IV benzodiazepine therapy Based on the above, please further specify, in the Progress Notes, the known or suspected type of the documented encephalopathy: Metabolic Septic Toxic Toxic metabolic Hypertensive Anoxic Alcoholic Hepatic (reported as hepatic failure and needs further specificity as to acute, subacute, or chronic) Due to a specified condition (such as UTI, hyponatremia, CVA, etc.) Other (explain) Clinically unable to determine (explain) Thank you, Glenys Schwartz RN Use of terms such as suspected, likely, concern for, or probable (associated with a specific diagnosi s that is being evaluated, monitored, or treated as if it exists) are acceptable and can be coded in the inpatient se tting, when documented at the time of discharge. Please use your independent medical judgment in providing your response. THIS QUERY IS PART OF THE PERMANENT MEDICAL RECORD
--- NOTE | 2024-12-07 10:40 | MHC.CLN ---
F/U DISCUSSED AT MD [facility]OUNDS. PPN TO CONTINUE. REVIEWED LABS. COMMUNICATED WITH PHARMACY. RECOMMEND CONTINUE PPN AT MAX GOAL RATE 85ML/HR WITH 96G LIPIDS TO PROVIDE 2000 TOTAL KCALS (23KCALS/KG), 204G DEXTROSE, 87G PROTEIN (1.0G/KG). REPLETE LYTES NEEDED. FOLLOW FOR PPN TOLERANCE AND LABS.
--- NOTE | 2024-12-07 12:10 | PC.NURSE ---
Assumed care at 0700. Pt rouses, swats arms with vigorous sternal rub. Does not follow commands, open eyes, or vocalize. Pt becomes rigid with movement and/or noxious stimuli. Per fluorescent lighting model maker & psych MD no need for ICU level of care. Pt to be transferred to [facility]. Sultana removed at 1115; pt due to void at 1715. Report given to Ariela TERRAZAS at approx 1210.
--- NOTE | 2024-12-07 12:55 | MHC.CM.PN ---
CM received a call from the PRINCIPAL ADMINISTRATIVE CLERK, informing CM that Patient's Father/Kvng @ [phone] is interested in obtaining Guardianship for his Son. CM spoke with Kvng and informed him to call [place] [facility] @ [phone], inform them that he wishes to petition for Guardianship for his Son, and to request instructions on the process. CM will follow.
[2024-12-07] MEDS: Enoxaparin Sodium 40 MG/0.4 ML SYRINGE SUBCUT (13:09)
--- NOTE | 2024-12-07 16:59 | HO.PSYCHPN ---
Subjective Subjective Date of Service: 12/07/24 Reason For Visit: Catatonia need for parental nutrition Interim History: Met with patient; discussed case with Dr. Lira, Dr. Jiang some change in presentation as patient now responsive to noxious stimuli/chest rub, grimacing and pushing examiner's hand away. Sales Representative Groceries and Dr. Lira agree this is improvement and evidence that Ativan is helping (progression: rigidity and no response to noxious stimuli -- progressed to absence of rigidity but still no response to noxious stimuli--progressed to now, pt with active response to noxious stimuli) Mental Status Exam Mental Status Exam Narrative: Moving more naturally on his own; eyes closed; still demonstrating negativism but now responds to noxious stimuli/sternal rub and actively grimaces and pushes way examiners hand; patient sometimes makes some responsive eye movements when his name is called; completely mute, not eating/drinking; Diagnostics Vital Signs (24Hr): Vital Signs - 24 hr 12/06/24 19:58 12/06/24 20:00 12/06/24 20:53 Temperature 98.6 F 98.6 F 98.6 F Pulse Rate 86 84 71 Respiratory Rate 18 20 19 Blood Pressure 113/68 115/68 115/68 Pulse Oximetry 98 98 96 Oxygen Delivery Method Room Air Room Air Room Air 12/06/24 21:54 12/06/24 22:58 12/07/24 00:00 Temperature 98.1 F 97.7 F 98.1 F Pulse Rate 70 92 75 Respiratory Rate 20 12 12 Blood Pressure 111/68 111/70 128/86 Pulse Oximetry 97 97 99 Oxygen Delivery Method Room Air Room Air Room Air 12/07/24 01:00 12/07/24 01:00 12/07/24 02:00 Temperature 98.4 F 98.4 F 97.9 F Pulse Rate 80 71 69 Respiratory Rate 20 18 20 Blood Pressure 125/83 125/83 128/78 Pulse Oximetry 98 97 98 Oxygen Delivery Method Room Air Room Air Room Air 12/07/24 03:00 12/07/24 04:00 12/07/24 05:00 Temperature 97.7 F 97.7 F 97.7 F Pulse Rate 69 68 70 Respiratory Rate 20 19 17 Blood Pressure 116/74 124/74 125/84 Pulse Oximetry 96 98 98 Oxygen Delivery Method Room Air Room Air Room Air 12/07/24 06:00 12/07/24 07:00 12/07/24 08:00 Temperature 98.1 F 98.1 F 98.2 F Pulse Rate 85 85 75 Respiratory Rate 18 13 18 Blood Pressure 119/82 123/82 126/88 Pulse Oximetry 100 98 98 Oxygen Delivery Method Room Air Room Air Room Air 12/07/24 08:50 12/07/24 10:00 12/07/24 11:00 Temperature 98.4 F 98.6 F 98.8 F Pulse Rate 76 89 81 Respiratory Rate 20 20 19 Blood Pressure 126/88 128/78 127/76 Pulse Oximetry 97 98 97 Oxygen Delivery Method Room Air Room Air Room Air 12/07/24 12:00 12/07/24 13:01 12/07/24 15:49 Temperature 97.9 F 97.8 F Pulse Rate 83 89 94 Respiratory Rate 22 H 16 18 Blood Pressure 121/77 135/86 118/76 Pulse Oximetry 98 100 Oxygen Delivery Method Room Air Room Air BMI result Body Mass Index 28.9 Labs 12/07/24 05:09 12/07/24 05:09 Labs: Laboratory Results - last 48 hr 12/06/24 12/06/24 12/07/24 05:29 05:30 05:09 WBC 4.3 L 5.0 RBC 4.17 L 4.48 L Hgb 12.6 L 13.5 L Hct 37.7 L 39.8 L MCV 90.4 88.8 MCH 30.2 30.1 MCHC 33.4 33.9 RDW 11.9 11.7 Plt Count 233 234 MPV 9.8 9.6 Immature Gran % (Auto) 0.2 0.2 Neut % (Auto) 39.5 L 45.7 Lymph % (Auto) 48.5 H 42.9 H [place] % (Auto) 8.5 7.8 Eos % (Auto) 2.6 2.6 Baso % (Auto) 0.7 0.8 Lymph # (Auto) 2.1 2.1 [place] # (Auto) 0.4 0.4 Eos # (Auto) 0.1 0.1 Baso # (Auto) 0.0 0.0 Abs Immat Gran (auto) 0.01 0.01 Absolute Neuts (auto) 1.7 L 2.3 Absolute Nucleated RBC 0.000 0.000 Nucleated RBC % (auto) 0.0 0.0 VBG pH 7.42 VBG pCO2 43 VBG pO2 95 VBG HCO3 28 H VBG O2 Saturation 98.0 VBG Base Excess 3.9 Sodium 143 140 Potassium 3.9 4.0 Chloride 111 H 108 Carbon Dioxide 25 25 Anion Gap 11 L 11 L BUN 9 10 Creatinine 0.84 0.77 Estim Creat Clear Calc 163.3 178.1 Estimated GFR > 60 > 60 Random Glucose 100 96 Calcium 9.3 9.5 Phosphorus 3.6 3.8 Magnesium 2.0 2.1 Total Bilirubin 0.8 AST 31 ALT 17 Alkaline Phosphatase 36 L Total Protein 6.2 L Albumin 3.6 3.7 Imaging Radiology Impressions: ITS Impressions Brain MRI 12/06/24 17:21 IMPRESSION: No acute intracranial hemorrhage. No signal abnormality to suggest encephalopathy Electronically signed by: James Conway MD 12/07/2024 08:43 AM EDT RP Medications Medications Current Medications Enoxaparin Sodium (Enoxaparin Sodium 40 Mg/0.4 Ml Syringe) 40 mg SUBCUT Q24H [facility] Last Admin: 12/07/24 13:09 Dose: 40 mg Erythromycin (Erythromycin Base 0.5% Oph Oin 1 Gm Tube) 1 cm EYE-BOTH QID [facility] Last Admin: 12/07/24 13:09 Dose: 1 cm Nutrition (Parenteral) (Parenteral Nutrition) 2,040 mls @ 85 mls/hr IV .Q24H [facility]; Protocol Stop: 12/07/24 20:59 Last Admin: 12/06/24 21:03 Dose: 85 mls/hr Nutrition (Parenteral) (Parenteral Nutrition) 2,040 mls @ 85 mls/hr IV .Q24H [facility]; Protocol Stop: 12/08/24 20:59 Lorazepam (Lorazepam 2 Mg/Ml Vial) 2 mg IVPUSH Q4H [facility] Last Admin: 12/07/24 12:16 Dose: 2 mg Pharmacy Consult (Consult Rx Parenteral Nutrition Ordering) 1 each MISCELLANE DAILY PRN PRN Reason: Consult order Sodium Chloride (0.9 % Sodium Chloride Flush 3 Ml Syringe) 3 ml IVFLUSH QSHIFT [facility] Last Admin: 12/07/24 07:29 Dose: 3 ml Allergies Allergies Allergy/AdvReac Type Severity Reaction Status Date / Time No Known Allergies Allergy Verified 11/28/24 13:56 Assessment & Plan Assessment & Plan (1) Catatonia: Status: Acute Code(s): F06.1 - Catatonic disorder due to known physiological condition (2) Schizophrenia: Status: Acute Code(s): F20.9 - Schizophrenia, unspecified (3) Autism spectrum disorder: Status: Acute Code(s): F84.0 - Autistic disorder Plan Patient is a 24-year-old male with history of autism, newly diagnosed schizophrenia and now catatonia who initially presented to psychiatric unit for disorganized behaviors (See HPI below) but then developed severe catatonia, needing to be transferred to the ICU for IV benzodiazepines, IV fluids, TPN. Patient was 1st sent to the medical floor. Since there is a national shortage of liquid Ativan, He received midazolam 2 mg IV however patient had no response. He was then given diazepam 10 mg IV and within 30 seconds, he relaxed his muscles, folded his arms, turned over on his side and moved his legs, 1st natural movements observed for several days. Sales Representative Groceries collaborated with Dr. Lira and after literature review, both agreed that patient required immediate IV diazepam treatment to prevent patient from progressing towards a malignant catatonia; since patient had demonstrated initial response to diazepam he should be continued on diazepam; the literature recommends diazepam IV infusion at 10mg/500ml saline at 1.25mg/hour; diazepam infusion not available per hospital formulary so agreed to diazepam 2.5 mg IV push q.2 hours. Hospitalist team/medical floor nursing staff felt patient should be observed on ICU for this administration and he was transferred to the ICU. In the ICU, Patient remains with severe catatonia though rigidity seems remain resolved, marking initial effective response to diazepam; to verbal commands, it appears patient is trying to open his eyes however they remain closed. Negativism remains (resistance of examine his manipulation with equal strength). Sales Representative Groceries discussed case with Dr. Lira and Dr. Jiang It was agreed to continue this course of treatment for about 48 hours and reassess. Impression: It is difficult to know the etiology of catatonia. People with autism, psychotic disorders, or taking a antipsychotic medications are all at increased risk for catatonia and patient has all 3 risk factors. Patient's catatonia remains severe but has improved a little with IV diazepam. Discussed case thoroughly with Dr. Lira who agrees that current treatment with IV diazepam 2.5 mg Q2H is appropriate and necessary treatment hoping to resolve catatonia and prevent malignant catatonia. Hospital course: 12/06 Patient remains with same minimal improvement observed when starting diazepam; he is moving on his own a little more naturally though still minimally. Will appeared to be trying to open his eyes sometimes when his name is called. Continues with negativism however otherwise is not rigid. Sales Representative Groceries met with patient's father and stepmother Debra. Initially family expressed dissatisfaction with treatment and wanted patient transferred to [facility]. Dr. Jiang reached out to [facility] to discuss case and they declined to take patient at this time, not having a bed available and also not being able to provide ECT should patient require it. Patient's family accepted this. Sales Representative Groceries again spent about an hour providing education on catatonia, its causes and its treatments, including ECT; explained ECT procedure as well. Dr. Lira also provided the family with printed out literature regarding these topics, including ECT. After discussion, patient's family seemed to agree with current treatment plan of continuing with benzodiazepines. Since patient had only a minimal response to IV diazepam, decision was made to switch to IV Ativan to see if this would be more effective; also discussed with family who agreed with this plan. Sales Representative Groceries again offered to talk with family member who is a neurologist and gave them typewriters functional tester's contact information to pass along. 12/07 some change in presentation as patient now responsive to noxious stimuli/chest rub, grimacing and pushing examiner's hand away. Sales Representative Groceries and Dr. Lira agree this is improvement and evidence that Ativan is helping (progression: rigidity and no response to noxious stimuli -- progressed to absence of rigidity but still no response to noxious stimuli--progressed to now, pt with active response to noxious stimuli). -Literature reviewed and after team discussion agreed to increase IV Ativan to 2 mg q.4h -brain MRI unremarkable -Discussed with Dr. Jiang who felt patient could be safely transferred back to medical floor out of ICU; family informed Plan: INcREASE to Ativan IV 2 mg Q4h (up from qid) DC IV diazepam 2.5 mg q.2h; has not improved catatonic symptoms other than minimally after about 36 hours If catatonia persists despite benzodiazepine being treatment, next phase of treatment is ECT Currently patient is on a [address] (patient signed a 3 day notice; filed in court) Will try to reach out to mother for additional information Neurology consult placed Brain MRI ordered Patient educated on: diagnosis and medication risk/benefits Informed Consent: does not understand Reason for continued inpatient stay Substantial Risk for: inability to function Time Spent With Patient Time: Total time managing care of this patient today ____ minutes.
--- NOTE | 2024-12-07 18:54 | PM.EVENT ---
Event Note Date of Service: 12/07/24 Event Note: Seen/examined, pt transfered out of ICU for ? catatonia that required IV benzo q1, he is still not eating and on PPN. Continue care with frequent more Time Spent With Patient Time: Total time managing care of this patient today ____ minutes.
[2024-12-07] MEDS: Parenteral Nutrition 2,040 ML 85 ML IV (22:02)
[2024-12-08] MEDS: LORazepam 2 MG/ML VIAL IVPUSH ×6 (00:37→21:35)
[2024-12-08] MEDS: 0.9 % Sodium Chloride Flush 3 ML SYRINGE IVFLUSH ×2 (00:37→09:15)
[2024-12-08 04:00] VITALS: BP 127/75; PULSE 99; RESP 16; TEMP 36.9; O2SAT 100
--- NOTE | 2024-12-08 04:09 | PC.NURSE ---
pt unable to void. Bladder scan complete at 0100 for 309 mL, notified, verbal order to straight cath once bladder scan is above 400ml. Bladder scan preformed at 0355 for 402mL, straight cath preformed. Next due to void at 10:00. [place] cath replaced. safety precautions remain in place, camera in room, bed alarm on.
[2024-12-08 07:12] VITALS: BP 122/81; PULSE 85; RESP 14; TEMP 37.1; O2SAT 97
--- NOTE | 2024-12-08 09:08 | HO.PM.IMPN ---
Subjective Subjective Date of Service: 12/08/24 Interval History: Patient remains very somnolent, unresponsive, breathing comfortably vitals stable. Review of Systems Could not be done with Physical Exam Vital Signs: Vital Signs: Last Vital Signs Temp 98.8 F 12/08/24 07:12 Pulse 85 12/08/24 07:12 Resp 14 12/08/24 07:12 BP 122/81 12/08/24 07:12 Pulse Ox 97 12/08/24 07:12 O2 Del Method Room Air 12/08/24 07:12 BMI result Body Mass Index 28.9 Const: Other: General: very somnolent, can not wake verbal still, minimal repsonsive to noxious stimuli Resp: CTA bilateral CVS: S1,S2,RRR GI: +BS, NT, no distention Skin: No rash Neuro: motor grossly intact Psych: appropriate affect Objective Data Active Medications Enoxaparin Sodium (Enoxaparin Sodium 40 Mg/0.4 Ml Syringe) 40 mg SUBCUT Q24H [facility] Last Admin: 12/07/24 13:09 Dose: 40 mg Documented By: KYLE Erythromycin (Erythromycin Base 0.5% Oph Oin 1 Gm Tube) 1 cm EYE-BOTH QID [facility] Last Admin: 12/07/24 22:02 Dose: 1 cm Documented By: KYLAH Nutrition (Parenteral) (Parenteral Nutrition) 2,040 mls @ 85 mls/hr IV .Q24H [facility]; Protocol Stop: 12/08/24 20:59 Last Admin: 12/07/24 22:02 Dose: 85 mls/hr Documented By: KYLAH Lorazepam (Lorazepam 2 Mg/Ml Vial) 2 mg IVPUSH Q4H [facility] Last Admin: 12/08/24 03:46 Dose: 2 mg Documented By: PAOLA Pharmacy Consult (Consult Rx Parenteral Nutrition Ordering) 1 each MISCELLANE DAILY PRN PRN Reason: Consult order Sodium Chloride (0.9 % Sodium Chloride Flush 3 Ml Syringe) 3 ml IVFLUSH QSHIFT [facility] Last Admin: 12/08/24 00:37 Dose: 3 ml Documented By: PAOLA Labs 12/07/24 05:09 12/07/24 05:09 Assessment and Plan (1) Psychiatric illness: Status: Acute (2) Schizophrenia: Status: Acute (3) Catatonia: Status: Acute Plan 24-year-old male with question of schizophrenia and autism spectrum disorder but no other PMH known admitted to adult Psychiatry with consult placed hospitalist service due to severe catatonia not eating for days and no response to IM diazepam. He was admitted to the medical floor and tehn transfer to the ICU for high doses of benzos and frequent dozing and be closely monitoring, he was transfered out of ICU on 12/07, He remains unresponsive, lethargic, vitals otherwise stable. Plan: To continue Benzo (IV ativan)_ as directed by Psych presently on 2 mg q 4 hours, monitor for respiratory effect. Continue PPN for nutritional support and monitor electrolytes and divalents closely Other treatment to be directed by Psych DVT prophylaxis-Lovenox Full code Patient requires inpatient stay for parental nutrition in the setting of severe catatonia and will also require a IV benzo challenge with cardiac monitoring Quality Stroke Does the patient have a stroke diagnosis?: No VTE Prior VTE?: No VTE Risk Level:: Medical - moderate - high VTE Device Contraindication: Treatment Not Indicated VTE Drug Contraindication: N/A - Med Ordered
[2024-12-08] MEDS: Erythromycin Base 0.5% Oph Oin 1 GM TUBE 1 CM EYE-BOTH ×4 (09:15→22:19)
[2024-12-08 10:32] LABS: Alanine Aminotransferase 22 U/L (0-40); Albumin Level 3.9 g/dL (3.5-5.0); Alkaline Phosphatase 44 U/L (39-117); Anion Gap 11 (12-20); Aspartate Amino Transferase 25 U/L (5-37); Bilirubin Total 0.7 mg/dL (0.0-1.0); Blood Urea Nitrogen 9 mg/dL (9-16); Calcium 9.7 mg/dL (8.4-10.2); Carbon Dioxide 25 mmol/L (22-29); Chloride 105 mmol/L (96-108); Creatinine Clr Calc Pharmacy 171.5; Estimated Glomerular Filt Rate > 60; Glucose Random 94 mg/dL (60-115); Potassium 4.1 mmol/L (3.3-5.1); Sodium 137 mmol/L (135-145); Total Protein 7.1 g/dL (6.5-8.0)
[2024-12-08 11:03] VITALS: BP 137/67; PULSE 90; RESP 16; TEMP 36.8; O2SAT 99
--- NOTE | 2024-12-08 12:22 | P.CNPS_ITS ---
History of Present Illness Date of Service: 12/08/24 (continued daily consult from ICU) Chief Complaint: Catatonia need for parental nutrition Requesting physician: Montrell Ernandez Discussed with referring provider: Yes Sources of Information: patient interviewed, chart reviewed and crisis/core team assessment reviewed HPI Narrative: Patient is a 24-year-old male with history of autism, newly diagnosed schizophrenia and now catatonia who initially presented to psychiatric unit for disorganized behaviors (See HPI in assessment) but then developed severe catatonia. Pt transferred to medical floor from ICU for continued IV benzodiazepines, IV fluids, TPN. 1.Initially Patient was 1st sent from M3 to the medical floor. Due to national shortage of liquid Ativan, He received midazolam 2 mg IV however patient had no response. He was then given diazepam 10 mg IV and within 30 seconds, he relaxed his muscles, folded his arms, turned over on his side and moved his legs, 1st natural movements observed for several days. Safety Admin Assistant collaborated with Dr. Lira and after literature review, both agreed that patient required immediate IV diazepam treatment to prevent patient from progressing towards a malignant catatonia; since patient had demonstrated initial response to diazepam he should be continued on diazepam; the literature recommends diazepam IV infusion at 10mg/500ml saline at 1.25mg/hour; diazepam infusion not available per hospital formulary so agreed to diazepam 2.5 mg IV push q.2 hours. 2)Hospitalist team/medical floor nursing staff felt patient should be observed on ICU for this administration and he was transferred to the ICU. In the ICU, Patient treated with IV Diazepam for about 36 hours with limited effect, with rigidity having resolved (and periodically briefly opening his eyes) but other symptoms of catatonia remaining including, not following verbal commands and negativism (resistance of examine his manipulation with equal strength). Team agreed to switch from diazepam to Ativan 2 mg IV q.i.d.. After about 12 hours patient improved some more, responding to noxious stimuli/sternal rub and grimaced and actively pushed examiner's hand away. After about 36 hours give or take, dose increase to Ativan 2 mg IV q4H. Patient able to be transferred back to the medical floor. 3) patient on medical floor receiving Ativan 2 mg IV q4h. He remains in the bed with his eyes closed, not responding to verbal commands but is overall moving all limbs more naturally on his own. Negative his remains. Safety Admin Assistant met with and discussed case with patient's father and then talked with patient's mother who currently lives in [place]. Collateral from patient's mother, Cliff, ([phone]) ASD; IEP, honors classes, working; [employer]; graduated [employer]; -around 22 years old, seemed more reclusive and pt started changing -lost job September 2022; missing days, not focused; got fired at next job for going too slow -a year ago, less ADL's, not showering, less motivation, mom thinking more than just ASD since not like this at all in H.S -Refusing to go to appointments. Got him to ED and psych doctor evaluated but was not able to be Sectioned; mom tried other times to get him to doctor, to hospital, but police felt did not meet criteria to section him... -still minimal ADL's; in Fall 2023 started sleeping outside in the park which again, out of character -Jul 2024 making slow movements, like in slow motion, but able to pull out of it; kept sleeping outside in front of her door, peeing on himself or in bottles. -Episodes of staring off and not responding; intermittently would look agitated -Mom sent him to [facility] to be with father -no hx of drug/alcohol use -had gone 36 hours w/out sleep, but not hyperactive, withdrawn and either quiet on laptop or making lots of food but not eating -no seizure hx -no hx of medication Past Psychiatric History: Does not have outpatient psychiatric providers. Recently discharged from [facility] 11/2024. This is patient's 2nd inpatient psychiatric hospitalization. Denies history of SA/SIB. [facility] Medical History (Updated 12/07/24 @ 13:47 by Phan Saucedo MD) Autism spectrum disorder Family History: Denies Social History: ASD since 2 years old; IEP with [employer], working; [employer]; graduated [employer]; Living in [place] with his mother until July 2024 when he moved to [place] to be with his father. -around 22 years old, seemed more reclusive and pt started changing -lost job September 2022; missing days, not focused; got fired at next job for going too slow -a year ago, less ADL's, not showering, less motivation, mom thinking more than just ASD since not like this at all in H.S -Refusing to go to appointments. Got him to ED and psych doctor evaluated but was not able to be Sectioned; mom tried other times to get him to doctor, to hospital, but police felt did not meet criteria to section him... -still minimal ADL's; in Fall 2023 started sleeping outside in the park which again, out of character -Jul 2024 making slow movements, like in slow motion, but able to pull out of it; kept sleeping outside in front of her door, peeing on himself or in bottles. -Episodes of staring off and not responding; intermittently would look agitated -Mom sent him to [place] to be with father -no hx of drug/alcohol use -had gone 36 hours w/out sleep, but not hyperactive, withdrawn and either quiet on laptop or making lots of food but not eating -no seizure hx -no hx of medication Substance History: none Trauma History: Denies Diagnostics Vital Signs (24Hr): Vital Signs - 24 hr 12/07/24 13:01 12/07/24 15:49 12/07/24 19:15 Temperature 97.9 F 97.8 F 98.1 F Pulse Rate 89 94 92 Respiratory Rate 16 18 22 H Blood Pressure 135/86 118/76 114/74 Pulse Oximetry 100 97 Oxygen Delivery Method Room Air Room Air 12/07/24 23:41 12/08/24 04:00 12/08/24 07:12 Temperature 97.6 F 98.4 F 98.8 F Pulse Rate 86 99 85 Respiratory Rate 16 16 14 Blood Pressure 121/83 127/75 122/81 Pulse Oximetry 98 100 97 Oxygen Delivery Method Room Air Room Air Room Air 12/08/24 11:03 Temperature 98.3 F Pulse Rate 90 Respiratory Rate 16 Blood Pressure 137/67 Pulse Oximetry 99 Oxygen Delivery Method Room Air BMI result Body Mass Index 28.9 Labs 12/07/24 05:09 12/08/24 09:54 Labs: Laboratory Results - last 48 hr 12/07/24 12/08/24 05:09 09:54 WBC 5.0 RBC 4.48 L Hgb 13.5 L Hct 39.8 L MCV 88.8 MCH 30.1 MCHC 33.9 RDW 11.7 Plt Count 234 MPV 9.6 Immature Gran % (Auto) 0.2 Neut % (Auto) 45.7 Lymph % (Auto) 42.9 H Weakley % (Auto) 7.8 Eos % (Auto) 2.6 Baso % (Auto) 0.8 Lymph # (Auto) 2.1 Weakley # (Auto) 0.4 Eos # (Auto) 0.1 Baso # (Auto) 0.0 Abs Immat Gran (auto) 0.01 Absolute Neuts (auto) 2.3 Absolute Nucleated RBC 0.000 Nucleated RBC % (auto) 0.0 Sodium 140 137 Potassium 4.0 4.1 Chloride 108 105 Carbon Dioxide 25 25 Anion Gap 11 L 11 L BUN 10 9 Creatinine 0.77 0.80 Estim Creat Clear Calc 178.1 171.5 Estimated GFR > 60 > 60 Random Glucose 96 94 Calcium 9.5 9.7 Phosphorus 3.8 Magnesium 2.1 Total Bilirubin 0.7 AST 25 ALT 22 Alkaline Phosphatase 44 Total Protein 7.1 Albumin 3.7 3.9 Imaging Radiology Impressions: ITS Impressions Brain MRI 12/06/24 17:21 IMPRESSION: No acute intracranial hemorrhage. No signal abnormality to suggest encephalopathy Electronically signed by: James Conway MD 12/07/2024 08:43 AM EDT RP Mental Status Exam Mental Status Exam Narrative: Moving all limbs more naturally on his own; eyes closed; still demonstrating negativism but now responds to noxious stimuli/sternal rub and actively grimaces and pushes way examiners hand; patient sometimes makes some responsive eye movements when his name is called; completely mute, not eating/drinking; Medications Medications Current Medications Enoxaparin Sodium (Enoxaparin Sodium 40 Mg/0.4 Ml Syringe) 40 mg SUBCUT Q24H [facility] Last Admin: 12/07/24 13:09 Dose: 40 mg Erythromycin (Erythromycin Base 0.5% Oph Oin 1 Gm Tube) 1 cm EYE-BOTH QID [facility] Last Admin: 12/08/24 09:15 Dose: 1 cm Nutrition (Parenteral) (Parenteral Nutrition) 2,040 mls @ 85 mls/hr IV .Q24H [facility]; Protocol Stop: 12/08/24 20:59 Last Admin: 12/07/24 22:02 Dose: 85 mls/hr Nutrition (Parenteral) (Parenteral Nutrition) 2,040 mls @ 85 mls/hr IV .Q24H [facility]; Protocol Stop: 12/09/24 20:59 Lorazepam (Lorazepam 2 Mg/Ml Vial) 2 mg IVPUSH Q4H [facility] Last Admin: 12/08/24 09:15 Dose: 2 mg Pharmacy Consult (Consult Rx Parenteral Nutrition Ordering) 1 each MISCELLANE DAILY PRN PRN Reason: Consult order Sodium Chloride (0.9 % Sodium Chloride Flush 3 Ml Syringe) 3 ml IVFLUSH QSHIFT [facility] Last Admin: 12/08/24 09:15 Dose: 3 ml Allergies Allergies Allergy/AdvReac Type Severity Reaction Status Date / Time No Known Allergies Allergy Verified 11/28/24 13:56 Assessment & Plan Assessment & Plan (1) 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 Pt transferred to medical floor from ICU for continued IV benzodiazepines, IV fluids, TPN. 1.Initially Patient was 1st sent from M3 to the medical floor. Due to national shortage of liquid Ativan, He received midazolam 2 mg IV however patient had no response. He was then given diazepam 10 mg IV and within 30 seconds, he relaxed his muscles, folded his arms, turned over on his side and moved his legs, 1st natural movements observed for several days. Safety Admin Assistant collaborated with Dr. Lira and after literature review, both agreed that patient required immediate IV diazepam treatment to prevent patient from progressing towards a malignant catatonia; since patient had demonstrated initial response to diazepam he should be continued on diazepam; the literature recommends diazepam IV infusion at 10mg/500ml saline at 1.25mg/hour; diazepam infusion not available per hospital formulary so agreed to diazepam 2.5 mg IV push q.2 hours. 2)Hospitalist team/medical floor nursing staff felt patient should be observed on ICU for this administration and he was transferred to the ICU. In the ICU, Patient treated with IV Diazepam for about 36 hours with limited effect, with rigidity having resolved (and periodically briefly opening his eyes) but other symptoms of catatonia remaining including, not following verbal commands and negativism (resistance of examine his manipulation with equal strength). Team agreed to switch from diazepam to Ativan 2 mg IV q.i.d.. After about 12 hours patient improved some more, responding to noxious stimuli/sternal rub and grimaced and actively pushed examiner's hand away. After about 36 hours give or take, dose increase to Ativan 2 mg IV q4H. Patient able to be transferred back to the medical floor. 3) patient on medical floor receiving Ativan 2 mg IV q4h. He remains in the bed with his eyes closed, not responding to verbal commands but is overall moving all limbs more naturally on his own. Negative his remains. Safety Admin Assistant met with and discussed case with patient's father and then talked with patient's mother who currently lives in [place]. Collateral from patient's mother, Cliff, ([phone]) ASD; IEP, honors classes, working; [employer]; graduated [employer]; -around 22 years old, seemed more reclusive and pt started changing -lost job September 2022; missing days, not focused; got fired at next job for going too slow -a year ago, less ADL's, not showering, less motivation, mom thinking more than just ASD since not like this at all in H.S -Refusing to go to appointments. Got him to ED and psych doctor evaluated but was not able to be Sectioned; mom tried other times to get him to doctor, to hospital, but police felt did not meet criteria to section him... -still minimal ADL's; in Fall 2023 started sleeping outside in the park which again, out of character -Jul 2024 making slow movements, like in slow motion, but able to pull out of it; kept sleeping outside in front of her door, peeing on himself or in bottles. -Episodes of staring off and not responding; intermittently would look agitated -Mom sent him to [place] to be with father -no hx of drug/alcohol use -had gone 36 hours w/out sleep, but not hyperactive, withdrawn and either quiet on laptop or making lots of food but not eating -no seizure hx -no hx of medication Impression: After receiving collateral from patient's mother, it seems that patient was demonstrating significant changes in his behavior, very different from his normal way of functioning and his normal expressions of autism. The behavioral changes described sound like prodrome of schizophrenia. Patient's father also observed patient responding to internal stimuli, also very different from his normal expressions. It is difficult to know the etiology of catatonia. People with autism, psychotic disorders, or taking a antipsychotic medications are all at increased risk for catatonia and patient has all 3 risk factors. Again from collateral it sounds very possible that catatonic symptoms started in the community in the week prior to this admission. [facility] at [facility] with IV benzodiazepines,, patient had observed but minimal improvement with IV diazepam; now on IV Ativan with some additional improvement. Discussed case thoroughly with Dr. Lira who agrees that current treatment plan of IV Ativan as both appropriate and necessary treatment to resolve catatonia and prevent malignant catatonia. Safety Admin Assistant has discussed the possibility of patient needing ECT treatment if IV benzos do not adequately resolve symptoms; family remains cautious about ECT but seems to understand that this could be necessary. Hospital course: ICU 12/06 Patient remains with same minimal improvement observed when starting diazepam; he is moving on his own a little more naturally though still minimally. Will appeared to be trying to open his eyes sometimes when his name is called. Continues with negativism however otherwise is not rigid. Safety Admin Assistant met with patient's father and stepmother Debra. Initially family expressed dissatisfaction with treatment and wanted patient transferred to [facility]. Dr. Jiang reached out to [facility] to discuss case and they declined to take patient at this time, not having a bed available and also not being able to provide ECT should patient require it. Patient's family accepted this. Safety Admin Assistant again spent about an hour providing education on catatonia, its causes and its treatments, including ECT; explained ECT procedure as well. Dr. Lira also provided the family with printed out literature regarding these topics, including ECT. After discussion, patient's family seemed to agree with current treatment plan of continuing with benzodiazepines. Since patient had only a minimal response to IV diazepam, decision was made to switch to IV Ativan to see if this would be more effective; also discussed with family who agreed with this plan. Safety Admin Assistant again offered to talk with family member who is a neurologist and gave them publicity writer's contact information to pass along. 12/07 some change in presentation as patient now responsive to noxious stimuli/chest rub, grimacing and pushing examiner's hand away. Safety Admin Assistant and Dr. Lira agree this is improvement and evidence that Ativan is helping (progression: rigidity and no response to noxious stimuli -- progressed to absence of rigidity but still no response to noxious stimuli--progressed to now, pt with active response to noxious stimuli). -Literature reviewed and after team discussion agreed to increase IV Ativan to 2 mg q.4h -brain MRI unremarkable -Discussed with Dr. Jiang who felt patient could be safely transferred back to medical floor out of ICU; family informed Medical floor: 12/08 patient remains catatonic, not opening his eyes, not responding to any verbal interactions; remains with negativism; however is moving increasingly or naturally on his own. Discussed with dr. Ernandez. -continue with Ativan 2 mg q4h for now Plan: Continue Ativan IV 2 mg Q4h (up from qid); will leave here for now since some improvements; will continue to monitor and decide whether to increase dosing (literature reports some cases have required up to 30 mg daily) DC IV diazepam 2.5 mg q.2h; has not improved catatonic symptoms other than minimally after about 36 hours If catatonia persists despite benzodiazepine being treatment, next phase of treatment is ECT Currently patient is on a Section 7 (patient signed a 3 day notice; filed in court) Will try to reach out to mother for additional information Neurology consult placed Brain MRI unremarkable Total time managing care of this patient today ____ minutes. Patient educated on: diagnosis, medication risk/benefits and medical condition Guardian/Caregiver educated on: diagnosis, medication risk/benefits and medical condition Informed Consent: understands, does not understand and further education needed
[2024-12-08] MEDS: Enoxaparin Sodium 40 MG/0.4 ML SYRINGE SUBCUT (12:28)
[2024-12-08 15:28] VITALS: BP 123/78; PULSE 95; RESP 16; TEMP 37.6; O2SAT 98
[2024-12-08 19:56] VITALS: BP 131/76; PULSE 127; RESP 18; TEMP 37.7; O2SAT 100
[2024-12-08 22:00] LABS: D Dimer High Sensitivity 874 NG/ML
[2024-12-08] MEDS: Lactated Ringers 1,000 ML 100 ML IVCONT (22:18)
[2024-12-08] MEDS: Parenteral Nutrition 2,040 ML 85 ML IV (22:19)
[2024-12-08] MEDS: cefTRIAXone sodium 1 GM VIAL IVPUSH (22:27)
[2024-12-08] MEDS: Doxycycline Hyclate 100 MG in 0.9 % Sodium Chloride 250 ML 166.67 MG IV (22:31)
[2024-12-08 23:20] VITALS: BP 127/70; PULSE 131; RESP 32; TEMP 38.6; O2SAT 100
[2024-12-09] MEDS: Acetaminophen Supp 650 MG SUPP.RECT PR ×2 (01:00→12:35)
[2024-12-09] MEDS: 0.9 % Sodium Chloride Flush 3 ML SYRINGE IVFLUSH ×3 (01:04→16:42)
[2024-12-09 01:13] LABS: Lactic Acid 3.2 mmol/L (0.5-2.0)
[2024-12-09] MEDS: LORazepam 2 MG/ML VIAL IVPUSH ×2 (01:15→05:29)
[2024-12-09 01:20] LABS: Glucose, Whole Blood 91 mg/dL (60-115)
[2024-12-09] MEDS: Lactated Ringers 1,000 ML 999 ML IV ×2 (02:13→02:54)
[2024-12-09 02:46] LABS: Reflex Lactate? Lactic Acid Added
[2024-12-09 03:50] VITALS: BP 126/60; PULSE 106; RESP 20; TEMP 37.7; O2SAT 97
[2024-12-09 03:59] LABS: Appearance Urine Clear; Color Urine Yellow; Glucose Urine UA Negative (Negative); Leukocyte Esterase Urine Negative (Negative); Nitrite Urine Negative (Negative); PH 8.5 (5.0-9.0); Specific Gravity - Urine 1.015 (1.005-1.025); Urine Blood Negative (Negative); Urine Ketones Negative (Negative); Urine Protein Negative (Neg-Trace)
[2024-12-09] MEDS: Lactated Ringers 1,000 ML 105 ML IV (04:02)
[2024-12-09 06:07] LABS: Glucose, Whole Blood 81 mg/dL (60-115)
[2024-12-09 07:08] VITALS: BP 107/70; PULSE 112; RESP 18; TEMP 37.7; O2SAT 94
--- NOTE | 2024-12-09 08:42 | PM.EVENT ---
Event Note Date of Service: 12/09/24 Event Note: Sepsis: overnight of 12/08/24 patient became tachycardiac - appears dehudrated. not in pain. pt was started on IV fluids. later pt developed fever - 104f. ordered fever work up - ua,cxr,blood cx, lactic acid. also added Ddimer. pt blood pressure was stable. lactate elevated. pt was orderd for IV fluids 30 cc/kg. labs pending will also consult ID. Time Spent With Patient Time: Total time managing care of this patient today ____ minutes.
[2024-12-09] MEDS: diazePAM 10 MG/2 ML CARTRIDGE 2.5 MG IVPUSH ×8 (09:09→23:01)
[2024-12-09] MEDS: Erythromycin Base 0.5% Oph Oin 1 GM TUBE 1 CM EYE-BOTH ×4 (09:10→20:40)
[2024-12-09] MEDS: Doxycycline Hyclate 100 MG in 0.9 % Sodium Chloride 250 ML 166.67 MG IV (09:10)
--- NOTE | 2024-12-09 09:52 | P.PNIM_ITS ---
Subjective Subjective Date of Service: 12/09/24 Interval History: Overnight, patient had a temp of up to 105 and required cooling blanket, sepsis work done, CXR no PNA, UA is clean, blood culture sennt. Temp has come down Tachycardia improved, started on empric antibiotics. On the other hand, he's more awake today, no rigidity and asking to eat, PPN still ongoing. Review of Systems Fever, no sob, no chest, no rigity Physical Exam 2 Vital Signs: Vital Signs: Last Vital Signs Temp 99.9 F 12/09/24 07:08 Pulse 112 H 12/09/24 07:08 Resp 18 12/09/24 07:08 BP 107/70 12/09/24 07:08 Pulse Ox 94 12/09/24 07:08 O2 Del Method Room Air 12/09/24 07:08 BMI result Body Mass Index 28.9 Const: Other: General: still somnolent but wakes up with his name and conversing some Resp: CTA bilateral CVS: S1,S2,RRR GI: +BS, NT, no distention Skin: No rash Neuro: motor grossly intact, no involuntary or voluntary rigidity Psych: appropriate affect Objective Data Active Medications Acetaminophen (Acetaminophen Supp 650 Mg Supp.Rect) 650 mg DC Q6H PRN PRN Reason: Fever Last Admin: 12/09/24 01:00 Dose: 650 mg Documented By: DIRK Ceftriaxone Sodium (Ceftriaxone Sodium 1 Gm Vial) 1 gm IVPUSH Q24H [facility] Last Admin: 12/08/24 22:27 Dose: 1 gm Documented By: KYLAH Diazepam (Diazepam 10 Mg/2 Ml Cartridge) 2.5 mg IVPUSH Q2H [facility] Enoxaparin Sodium (Enoxaparin Sodium 40 Mg/0.4 Ml Syringe) 40 mg SUBCUT Q24H [facility] Last Admin: 12/08/24 12:28 Dose: 40 mg Documented By: FAHAD Erythromycin (Erythromycin Base 0.5% Oph Oin 1 Gm Tube) 1 cm EYE-BOTH QID [facility] Last Admin: 12/09/24 09:10 Dose: 1 cm Documented By: FAHAD Nutrition (Parenteral) (Parenteral Nutrition) 2,040 mls @ 85 mls/hr IV .Q24H [facility]; Protocol Stop: 12/09/24 20:59 Last Admin: 12/08/24 22:19 Dose: 85 mls/hr Documented By: KYLAH Lactated Ringer's (Lr) 1,000 mls @ 50 mls/hr IVCONT .Q20H [facility] Last Infusion: 12/09/24 01:00 Dose: Infused Documented By: DIRK Doxycycline Hyclate 100 mg/ (Sodium Chloride) 250 mls @ 166.67 mls/hr IV Q12H [facility] Last Admin: 12/09/24 09:10 Dose: 166.67 mls/hr Documented By: FAHAD Nutrition (Parenteral) (Parenteral Nutrition) 2,040 mls @ 85 mls/hr IV .Q24H [facility]; Protocol Stop: 12/10/24 20:59 Pharmacy Consult (Consult Rx Parenteral Nutrition Ordering) 1 each MISCELLANE DAILY PRN PRN Reason: Consult order Sodium Chloride (0.9 % Sodium Chloride Flush 3 Ml Syringe) 3 ml IVFLUSH QSHIFT [facility] Last Admin: 12/09/24 09:09 Dose: 3 ml Documented By: FAHAD Labs 12/10/24 08:23 12/10/24 08:23 Labs: Laboratory Results - last 24 hr 12/08/24 12/08/24 12/09/24 09:54 21:45 00:42 D-Dimer High Sensitivty 874 Anion Gap 11 L Estim Creat Clear Calc 171.5 Estimated GFR > 60 POC Glucose Random Glucose 94 Lactic Acid 3.2 H* Calcium 9.7 Total Bilirubin 0.7 AST 25 ALT 22 Alkaline Phosphatase 44 Total Protein 7.1 Albumin 3.9 Urine Color Urine Appearance Urine pH Ur Specific Butterfield Urine Protein Urine Glucose (UA) Urine Ketones Urine Blood Urine Nitrite Ur Leukocyte Esterase 12/09/24 12/09/24 12/09/24 01:17 03:49 06:04 D-Dimer High Sensitivty Anion Gap Estim Creat Clear Calc Estimated GFR POC Glucose 91 81 Random Glucose Lactic Acid Calcium Total Bilirubin AST ALT Alkaline Phosphatase Total Protein Albumin Urine Color Yellow Urine Appearance Clear Urine pH 8.5 Ur Specific Butterfield 1.015 Urine Protein Negative Urine Glucose (UA) Negative Urine Ketones Negative Urine Blood Negative Urine Nitrite Negative Ur Leukocyte Esterase Negative Assessment and Plan (1) Psychiatric illness: Status: Acute (2) Schizophrenia: Status: Acute (3) Catatonia: Status: Acute Plan 24-year-old male with question of schizophrenia and autism spectrum disorder but no other PMH known admitted to adult Psychiatry with consult placed hospitalist service due to severe catatonia not eating for days and no response to IM diazepam. He was admitted to the medical floor and tehn transfer to the ICU for high doses of benzos and frequent dozing and be closely monitoring, he was transfered out of ICU on 12/07, He remains unresponsive, lethargic, vitals otherwise stable. Plan: Fever/tachycardia/tachypnea overnight. CXR negative, blood cultures pending, UA negative. Possible concern of NMS: however no rigidity, has not been on Psychotropic, mental status has not changed. check CPK, continue hydration, check flu/rsv/covid swab. Continue broad spec Abx with vanco, ceftriaxone and addinc Acyclovir.. LP tomorrow morning. check hiv, spylis screen, and tic borne panel To continue Benzo (IV ativan or valium)_ as directed by Psych presently on 2 mg q 4 hours, monitor for respiratory effect. Continue PPN for nutritional support and monitor electrolytes and divalents closely Other treatment to be directed by Psych DVT prophylaxis-Lovenox Full code Patient requires inpatient stay for parental nutrition in the setting of severe catatonia and will also require a IV benzo challenge with cardiac monitoring Quality Stroke Does the patient have a stroke diagnosis?: No VTE Prior VTE?: No VTE Risk Level:: Medical - moderate - high VTE Device Contraindication: Treatment Not Indicated VTE Drug Contraindication: N/A - Med Ordered
[2024-12-09] MEDS: Lactated Ringers 1,000 ML 125 ML IVCONT ×2 (10:45→18:33)
[2024-12-09 12:00] VITALS: BP 120/69; PULSE 120; RESP 18; TEMP 38.7; O2SAT 95
[2024-12-09 12:45] LABS: Glucose, Whole Blood 95 mg/dL (60-115)
--- NOTE | 2024-12-09 12:47 | P.PNPSI_ITS ---
Subjective Subjective Date of Service: 12/09/24 Reason For Visit: Catatonia need for parental nutrition Interim History: met with pt; discussed with team, dr. Ernandez, dr. Lira Last night/early AM pt spiked fever 105, tachy, tachypneic. Treated with abx, cooling blanket, rectal acetaminophen; CXR negative. Temp came down and pt only mildly tachy; RR 18. Also...This morning, pt woke up, talked with Dr. Ernadnez and asked for a sandwich; a little later with nurse, he knew his name, and that he was at [facility]. Later in day, on approach, pt sleeping, sometimes yawning; did not wake up to speaking his name; investigative writer did not do sternal rub -tried to test for rigidity but not able to assess since pt's remains w/ negativism (catatonic symptom of resisting examiner w/ equal force) but pt appears to be moving around easily enough on his own. -did not really at risk for NMS since pt only on Diazepam T:99.4 (on cooling blanket) BP:112/68 O2 96% HR 98 RR: 18 lips appear swollen UA unremarkable CXR unremarkable negative covid/rsv/flu Discussed case with Dr. Ernandez regarding blood cultures/LP; at this time Dr. Ernandez would like to continue monitoring but advance to LP if patient does not improve. Mental Status Exam Mental Status Exam Narrative: Moving all limbs more naturally on his own; intermittently opened eyes, talking and was alert and oriented to self and place, knowing his name, date of , that he was at [facility]; asked for food. Alternately, eyes closed; no rigidity but still demonstrating negativism; does respond to noxious stimuli/sternal rub and actively grimaces and pushes way examiners hand; otherwise mute, not eating/drinking; Diagnostics Vital Signs (24Hr): Vital Signs - 24 hr 12/08/24 15:28 12/08/24 19:56 12/08/24 23:20 Temperature 99.7 F 100 F 101.5 F H Pulse Rate 95 127 H 131 H Respiratory Rate 16 18 32 H Blood Pressure 123/78 131/76 127/70 Pulse Oximetry 98 100 100 Oxygen Delivery Method Room Air Room Air Room Air 12/09/24 03:50 12/09/24 07:08 12/09/24 12:00 Temperature 99.8 F 99.9 F 101.6 F H Pulse Rate 106 H 112 H 120 H Respiratory Rate 20 18 18 Blood Pressure 126/60 107/70 120/69 Pulse Oximetry 97 94 95 Oxygen Delivery Method Room Air Room Air Room Air BMI result Body Mass Index 28.9 Labs 12/10/24 08:23 12/11/24 06:31 Labs: Laboratory Results - last 48 hr 12/08/24 12/08/24 12/09/24 09:54 21:45 00:42 D-Dimer High Sensitivty 874 Sodium 137 Potassium 4.1 Chloride 105 Carbon Dioxide 25 Anion Gap 11 L BUN 9 Creatinine 0.80 Estim Creat Clear Calc 171.5 Estimated GFR > 60 POC Glucose Random Glucose 94 Lactic Acid 3.2 H* Calcium 9.7 Total Bilirubin 0.7 AST 25 ALT 22 Alkaline Phosphatase 44 Total Protein 7.1 Albumin 3.9 Urine Color Urine Appearance Urine pH Ur Specific [place] Urine Protein Urine Glucose (UA) Urine Ketones Urine Blood Urine Nitrite Ur Leukocyte Esterase 12/09/24 12/09/24 12/09/24 01:17 03:49 06:04 D-Dimer High Sensitivty Sodium Potassium Chloride Carbon Dioxide Anion Gap BUN Creatinine Estim Creat Clear Calc Estimated GFR POC Glucose 91 81 Random Glucose Lactic Acid Calcium Total Bilirubin AST ALT Alkaline Phosphatase Total Protein Albumin Urine Color Yellow Urine Appearance Clear Urine pH 8.5 Ur Specific [place] 1.015 Urine Protein Negative Urine Glucose (UA) Negative Urine Ketones Negative Urine Blood Negative Urine Nitrite Negative Ur Leukocyte Esterase Negative 12/09/24 12:41 D-Dimer High Sensitivty Sodium Potassium Chloride Carbon Dioxide Anion Gap BUN Creatinine Estim Creat Clear Calc Estimated GFR POC Glucose 95 Random Glucose Lactic Acid Calcium Total Bilirubin AST ALT Alkaline Phosphatase Total Protein Albumin Urine Color Urine Appearance Urine pH Ur Specific [place] Urine Protein Urine Glucose (UA) Urine Ketones Urine Blood Urine Nitrite Ur Leukocyte Esterase Imaging Radiology Impressions: ITS Impressions Brain MRI 12/06/24 17:21 IMPRESSION: No acute intracranial hemorrhage. No signal abnormality to suggest encephalopathy Electronically signed by: James Conway MD 12/07/2024 08:43 AM EDT Medications Medications Current Medications Acetaminophen (Acetaminophen Supp 650 Mg Supp.Rect) 650 mg ID Q6H PRN PRN Reason: Fever Last Admin: 12/09/24 12:35 Dose: 650 mg Ceftriaxone Sodium (Ceftriaxone Sodium 1 Gm Vial) 1 gm IVPUSH Q24H [facility] Last Admin: 12/08/24 22:27 Dose: 1 gm Diazepam (Diazepam 10 Mg/2 Ml Cartridge) 2.5 mg IVPUSH Q2H [facility] Last Admin: 12/09/24 12:30 Dose: 2.5 mg Enoxaparin Sodium (Enoxaparin Sodium 40 Mg/0.4 Ml Syringe) 40 mg SUBCUT Q24H [facility] Last Admin: 12/08/24 12:28 Dose: 40 mg Erythromycin (Erythromycin Base 0.5% Oph Oin 1 Gm Tube) 1 cm EYE-BOTH QID [facility] Last Admin: 12/09/24 11:46 Dose: 1 cm Nutrition (Parenteral) (Parenteral Nutrition) 2,040 mls @ 85 mls/hr IV .Q24H [facility]; Protocol Stop: 12/09/24 20:59 Last Admin: 12/08/24 22:19 Dose: 85 mls/hr Lactated Ringer's (Lr) 1,000 mls @ 50 mls/hr IVCONT .Q20H [facility] Last Infusion: 12/09/24 01:00 Dose: Infused Doxycycline Hyclate 100 mg/ (Sodium Chloride) 250 mls @ 166.67 mls/hr IV Q12H [facility] Last Infusion: 12/09/24 10:42 Dose: Infused Nutrition (Parenteral) (Parenteral Nutrition) 2,040 mls @ 85 mls/hr IV .Q24H [facility]; Protocol Stop: 12/10/24 20:59 Lactated Ringer's (Lr) 1,000 mls @ 125 mls/hr IVCONT .Q8H [facility] Last Admin: 12/09/24 10:45 Dose: 125 mls/hr Pharmacy Consult (Consult Rx Parenteral Nutrition Ordering) 1 each MISCELLANE DAILY PRN PRN Reason: Consult order Sodium Chloride (0.9 % Sodium Chloride Flush 3 Ml Syringe) 3 ml IVFLUSH QSHIFT [facility] Last Admin: 12/09/24 09:09 Dose: 3 ml Allergies Allergies Allergy/AdvReac Type Severity Reaction Status Date / Time No Known Allergies Allergy Verified 11/28/24 13:56 Assessment & Plan Assessment & Plan (1) 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 Pt transferred to medical floor from ICU for continued IV benzodiazepines, IV fluids, TPN. 1.Initially Patient was 1st sent from M3 to the medical floor. Due to national shortage of liquid Ativan, He received midazolam 2 mg IV however patient had no response. He was then given diazepam 10 mg IV and within 30 seconds, he relaxed his muscles, folded his arms, turned over on his side and moved his legs, 1st natural movements observed for several days. Ingredient Specialist collaborated with Dr. Lira and after literature review, both agreed that patient required immediate IV diazepam treatment to prevent patient from progressing towards a malignant catatonia; since patient had demonstrated initial response to diazepam he should be continued on diazepam; the literature recommends diazepam IV infusion at 10mg/500ml saline at 1.25mg/hour; diazepam infusion not available per hospital formulary so agreed to diazepam 2.5 mg IV push q.2 hours. 2)Hospitalist team/medical floor nursing staff felt patient should be observed on ICU for this administration and he was transferred to the ICU. In the ICU, Patient treated with IV Diazepam for about 36 hours with limited effect, with rigidity having resolved (and periodically briefly opening his eyes) but other symptoms of catatonia remaining including, not following verbal commands and negativism (resistance of examine his manipulation with equal strength). Team agreed to switch from diazepam to Ativan 2 mg IV q.i.d.. After about 12 hours patient improved some more, responding to noxious stimuli/sternal rub and grimaced and actively pushed examiner's hand away. After about 36 hours give or take, dose increase to Ativan 2 mg IV q4H. Patient able to be transferred back to the medical floor. 3) patient on medical floor receiving Ativan 2 mg IV q4h. He remains in the bed with his eyes closed, not responding to verbal commands but is overall moving all limbs more naturally on his own. Negative his remains. Ingredient Specialist met with and discussed case with patient's father and then talked with patient's mother who currently lives in [place]. Collateral from patient's mother, Cliff, ([phone]) ASD; IEP, honors classes, working; spelling [employer]; graduated [employer]; -around 22 years old, seemed more reclusive and pt started changing -lost job September 2022; missing days, not focused; got fired at next job for going too slow -a year ago, less ADL's, not showering, less motivation, mom thinking more than just ASD since not like this at all in [place] -Refusing to go to appointments. Got him to ED and psych doctor evaluated but was not able to be Sectioned; mom tried other times to get him to doctor, to hospital, but police felt did not meet criteria to section him... -still minimal ADL's; in Fall 2023 started sleeping outside in the park which again, out of character -Jul 2024 making slow movements, like in slow motion, but able to pull out of it; kept sleeping outside in front of her door, peeing on himself or in bottles. -Episodes of staring off and not responding; intermittently would look agitated -Mom sent him to [place] to be with father -no hx of drug/alcohol use -had gone 36 hours w/out sleep, but not hyperactive, withdrawn and either quiet on laptop or making lots of food but not eating -no seizure hx -no hx of medication Impression: After receiving collateral from patient's mother, it seems that patient was demonstrating significant changes in his behavior, very different from his normal way of functioning and his normal expressions of autism. The behavioral changes described sound like prodrome of schizophrenia. Patient's father also observed patient responding to internal stimuli, also very different from his normal expressions. It is difficult to know the etiology of catatonia. People with autism, psychotic disorders, or taking a antipsychotic medications are all at increased risk for catatonia and patient has all 3 risk factors. Again from collateral it sounds very possible that catatonic symptoms started in the community in the week prior to this admission. Here at [facility] with IV benzodiazepines,, patient had observed but minimal improvement with IV diazepam; now on IV Ativan with some additional improvement. Discussed case thoroughly with Dr. Lira who agrees that current treatment plan of IV Ativan as both appropriate and necessary treatment to resolve catatonia and prevent malignant catatonia. Ingredient Specialist has discussed the possibility of patient needing ECT treatment if IV benzos do not adequately resolve symptoms; family remains cautious about ECT but seems to understand that this could be necessary. Hospital course: ICU 12/06 Patient remains with same minimal improvement observed when starting diazepam; he is moving on his own a little more naturally though still minimally. Will appeared to be trying to open his eyes sometimes when his name is called. Continues with negativism however otherwise is not rigid. Ingredient Specialist met with patient's father and stepmother Debra. Initially family expressed dissatisfaction with treatment and wanted patient transferred to [facility]. Dr. iJang reached out to [facility] to discuss case and they declined to take patient at this time, not having a bed available and also not being able to provide ECT should patient require it. Patient's family accepted this. Ingredient Specialist again spent about an hour providing education on catatonia, its causes and its treatments, including ECT; explained ECT procedure as well. Dr. Lira also provided the family with printed out literature regarding these topics, including ECT. After discussion, patient's family seemed to agree with current treatment plan of continuing with benzodiazepines. Since patient had only a minimal response to IV diazepam, decision was made to switch to IV Ativan to see if this would be more effective; also discussed with family who agreed with this plan. Ingredient Specialist again offered to talk with family member who is a neurologist and gave them investigative writer's contact information to pass along. 12/07 some change in presentation as patient now responsive to noxious stimuli/chest rub, grimacing and pushing examiner's hand away. Ingredient Specialist and Dr. Lira agree this is improvement and evidence that Ativan is helping (progression: rigidity and no response to noxious stimuli -- progressed to absence of rigidity but still no response to noxious stimuli--progressed to now, pt with active response to noxious stimuli). -Literature reviewed and after team discussion agreed to increase IV Ativan to 2 mg q.4h -brain MRI unremarkable -Discussed with Dr. Jiang who felt patient could be safely transferred back to medical floor out of ICU; family informed Medical floor: 12/08 patient remains catatonic, not opening his eyes, not responding to any verbal interactions; remains with negativism; however is moving increasingly or naturally on his own. Discussed with dr. Ernandez. -continue with Ativan 2 mg q4h for now 12/09 Last night/early AM pt spiked fever 105, tachy, tachypneic. Treated with abx, cooling blanket, rectal acetaminophen; CXR negative. Temp came down and pt only mildly tachy; RR 18. Also...This morning, pt woke up, talked with Dr. Ernandez and asked for a sandwich; a little later with nurse, he knew his name, and that he was at [facility]. Later in day, on approach, pt sleeping, sometimes yawning; did not wake up to speaking his name; investigative writer did not do sternal rub -tried to test for rigidity but not able to assess since pt's remains w/ negativism (catatonic symptom of resisting examiner w/ equal force) but pt appears to be moving around easily enough on his own. -did not really at risk for NMS since pt only on Diazepam T:99.4 (on cooling blanket) BP:112/68 O2 96% HR 98 RR: 18 lips appear swollen UA unremarkable CXR unremarkable negative covid/rsv/flu Ingredient Specialist discussed case with Dr. Lira; investigative writer Discussed case with Dr. Ernandez regarding blood cultures/LP; at this time Dr. Ernandez would like to continue monitoring but advance to LP if patient does not improve. Hospital ran out of Ativan; will switch back to diazepam Impression: Despite the fact that patient spiked a fever and was tachy and tachypneic, the fact that he woke up, was talking, interacting oriented to self and place was very encouraging. Ativan seems to have been more effective than diazepam and remains preferred, however diazepam has had some positive effect. Patient being worked up for infectious etiology, though he does not appear ill looking. It is possible that fever, increased heart rate respiratory rate was a brief crossing into a malignant catatonia; will continue with current treatment plan; ECT remains consider most effective treatment however need court order Plan: Restart diazepam IV 2.5 mg q.2h; has not improved catatonic symptoms other than minimally after about 36 hours DC (hospital ran out) Ativan IV 2 mg Q4h (up from qid); will resume once supply procured; (literature reports some cases have required up to 30 mg daily) If catatonia persists despite benzodiazepine being treatment, next phase of treatment is ECT Currently patient is on a Section 7 (patient signed a 3 day notice; filed in court) Will try to reach out to mother for additional information Neurology consult placed Brain MRI unremarkable Hospitalist note: Fever/tachycardia/tachypnea overnight. CXR negative, blood cultures pending, UA negative. Possible concern of NMS: however no rigidity, has not been on Psychotropic, mental status has not changed. check CPK, continue hydration, check flu/rsv/covid swab. To continue Benzo (IV ativan or valium)_ as directed by Psych presently on 2 mg q 4 hours, monitor for respiratory effect. Continue PPN for nutritional support and monitor electrolytes and divalents closely Other treatment to be directed by Psych DVT prophylaxis-Lovenox Full code Patient requires inpatient stay for parental nutrition in the setting of severe catatonia and will also require a IV benzo challenge with cardiac monitoring Reason for continued inpatient stay Substantial Risk for: inability to function Time Spent With Patient Time: Total time managing care of this patient today ____ minutes.
[2024-12-09 13:41] LABS: Hematocrit 39.3 % (42.0-52.0); Hemoglobin 13.7 g/dl (14.0-18.0); Mean Corpuscular HGB Conc 34.9 g/dl (31.0-36.0); Mean Corpuscular Hemoglobin 29.7 pg (27.0-33.0); Mean Corpuscular Volume 85.2 fL (80.0-98.0); PLT CLUMP 1; Red Blood Count 4.61 X10*6/uL (4.60-5.80); Red Cell Distribution Width 11.8 % (11.0-16.0); White Blood Count 15.1 X10*3/uL (4.8-10.8)
[2024-12-09 13:48] LABS: Influenza A PCR NEGATIVE (Negative); Influenza B PCR NEGATIVE (Negative); Resp Syncy Virus RNA Qual PCR NEGATIVE (Negative); SARS COV2 PCR INHOUSE NEGATIVE (Negative)
[2024-12-09 14:03] LABS: Albumin Level 3.6 g/dL (3.5-5.0); Anion Gap 16 (12-20); Blood Urea Nitrogen 10 mg/dL (9-16); Calcium 9.4 mg/dL (8.4-10.2); Carbon Dioxide 20 mmol/L (22-29); Chloride 106 mmol/L (96-108); Creatinine Clr Calc Pharmacy 185.4; Estimated Glomerular Filt Rate > 60; Glucose Random 101 mg/dL (60-115); Magnesium 1.8 mg/dL (1.6-2.6); Phosphorus 2.7 mg/dL (2.7-4.5); Potassium 4.8 mmol/L (3.3-5.1); Sodium 137 mmol/L (135-145)
[2024-12-09 14:04] LABS: Platelet Count 177 X10*3/uL (160-400)
[2024-12-09] MEDS: Lactated Ringers 1,000 ML 100 ML IVCONT (14:06)
[2024-12-09] MEDS: Enoxaparin Sodium 40 MG/0.4 ML SYRINGE SUBCUT (14:07)
[2024-12-09] MEDS: cefTRIAXone sodium 2 GM VIAL IVPUSH (14:07)
[2024-12-09] MEDS: vancomycin/NS 2,000 MG/500 ML PLAST..BAG 250 MG IV (14:08)
--- NOTE | 2024-12-09 15:00 | PHA.PROG ---
Admission Date/Time: December 04, 2024 13:17 Indication: OTHER Weight in k.5 kg Adjusted body weight in Kg: [place] body weight in Kg: Obesity Dosing Indication % IBW: Serum Creatinine - Last 168 Hours 12/04/24 12/05/24 12/06/24 18:42 05:50 05:29 Creatinine 1.03 0.89 0.84 12/07/24 12/08/24 12/09/24 05:09 09:54 13:20 Creatinine 0.77 0.80 0.74 Estimated CrCl and GFR - Last 168 Hours 12/04/24 12/05/24 12/06/24 18:42 05:50 05:29 Estim Creat Clear Calc 133.2 154.1 163.3 Estimated GFR > 60 > 60 > 60 12/07/24 12/08/24 12/09/24 05:09 09:54 13:20 Estim Creat Clear Calc 178.1 171.5 185.4 Estimated GFR > 60 > 60 > 60 Vancomycin Loading Dose: 2000 MG Current Vancomycin Dosing Regimen:1500 MG Q 12 HOURS Vancomycin Monitoring using AUC goal of 400 - 600 range with trough as surrogate marker: PREDICTED AUC 553 Date and Time for next Vancomycin Level to be drawn: WILL CHECK RANDOM LEVEL AFTER 2 DOSES Pharmacist Comments on Vancomycin Plan: Vancomycin dosing will take advantage of [employer] as a clinical decision support tool that uses Bayesian modeling to calculate individual patient's pharmacokinetic parameters and forecast the patient's drug concentration time course with the target goal AUC 24 range of 400 - 600 mg/L/hr.
[2024-12-09 15:23] VITALS: BP 112/68; PULSE 101; RESP 18; TEMP 38.3; O2SAT 96
[2024-12-09 15:55] LABS: Anion Gap 16 (12-20); Blood Urea Nitrogen 10 mg/dL (9-16); Calcium 9.2 mg/dL (8.4-10.2); Carbon Dioxide 19 mmol/L (22-29); Chloride 106 mmol/L (96-108); Creatinine Clr Calc Pharmacy 180.5; Estimated Glomerular Filt Rate > 60; Glucose Random 95 mg/dL (60-115); Magnesium 1.8 mg/dL (1.6-2.6); Phosphorus 2.9 mg/dL (2.7-4.5); Potassium 5.2 mmol/L (3.3-5.1); Sodium 136 mmol/L (135-145)
[2024-12-09 18:52] LABS: Glucose, Whole Blood 84 mg/dL (60-115)
[2024-12-09 19:06] VITALS: BP 148/68; PULSE 104; RESP 20; TEMP 37.2; O2SAT 95
[2024-12-09] MEDS: Acyclovir Sodium 850 MG in 0.9 % Sodium Chloride 250 ML 267 MG IV (19:35)
[2024-12-09] MEDS: Parenteral Nutrition 2,040 ML 85 ML IV (22:40)
[2024-12-10] VITALS (7 sets, daily range): BP systolic 99–128; BP diastolic 54–72; PULSE 78–93; RESP 16–18; TEMP 36.6–37.6; O2SAT 97–100
[2024-12-10 00:18] LABS: Glucose, Whole Blood 78 mg/dL (60-115)
[2024-12-10] MEDS: Doxycycline Hyclate 100 MG in 0.9 % Sodium Chloride 250 ML 166.67 MG IV ×2 (00:50→12:30)
[2024-12-10] MEDS: diazePAM 10 MG/2 ML CARTRIDGE 2.5 MG IVPUSH ×11 (00:51→22:32)
[2024-12-10] MEDS: Acyclovir Sodium 850 MG in 0.9 % Sodium Chloride 250 ML 267 MG IV ×2 (02:08→09:34)
[2024-12-10] MEDS: vancomycin HCL 1,500 MG in 0.9 % Sodium Chloride 500 ML 333.33 MG IV ×2 (02:24→14:42)
[2024-12-10] MEDS: cefTRIAXone sodium 2 GM VIAL IVPUSH ×2 (02:24→14:33)
[2024-12-10 06:14] LABS: Glucose, Whole Blood 110 mg/dL (60-115)
[2024-12-10] MEDS: Erythromycin Base 0.5% Oph Oin 1 GM TUBE 1 CM EYE-BOTH ×4 (07:54→20:20)
[2024-12-10] MEDS: 0.9 % Sodium Chloride Flush 3 ML SYRINGE IVFLUSH ×3 (07:56→20:20)
[2024-12-10 08:01] LABS: HIV AB/AG Nonreactive (Nonreactive); HIV Num 1 0.51 S/CO (0.00-0.99)
[2024-12-10 08:07] LABS: Syphilis Screen Nonreactive (Nonreactive)
[2024-12-10 08:42] LABS: Hematocrit 35.5 % (42.0-52.0); Hemoglobin 12.3 g/dl (14.0-18.0); Mean Corpuscular HGB Conc 34.6 g/dl (31.0-36.0); Mean Corpuscular Hemoglobin 29.9 pg (27.0-33.0); Mean Corpuscular Volume 86.2 fL (80.0-98.0); PLT CLUMP 1; Red Blood Count 4.12 X10*6/uL (4.60-5.80); Red Cell Distribution Width 11.9 % (11.0-16.0)
[2024-12-10 08:58] LABS: Albumin Level 3.3 g/dL (3.5-5.0); Anion Gap 14 (12-20); Blood Urea Nitrogen 9 mg/dL (9-16); Carbon Dioxide 20 mmol/L (22-29); Chloride 107 mmol/L (96-108); Creatinine Clr Calc Pharmacy 187.9; Estimated Glomerular Filt Rate > 60; Glucose Random 102 mg/dL (60-115); Magnesium 1.9 mg/dL (1.6-2.6); Phosphorus 2.7 mg/dL (2.7-4.5); Potassium 4.4 mmol/L (3.3-5.1); Sodium 137 mmol/L (135-145)
[2024-12-10 09:33] LABS: Mean Platelet Volume 11.3 fL (9.4-12.4); Platelet Count 165 X10*3/uL (160-400); White Blood Count 8.9 X10*3/uL (4.8-10.8)
[2024-12-10] MEDS: Lactated Ringers 1,000 ML 125 ML IVCONT ×2 (09:40→22:34)
--- NOTE | 2024-12-10 11:25 | P.PNIM_ITS ---
Subjective Subjective Date of Service: 12/10/24 Interval History: Patient remains unresponsive, No charted fever since yesterday. Vital sings are other stable. Review of Systems Fever, no sob, no chest, no rigity Physical Exam 2 Vital Signs: Vital Signs: Last Vital Signs Temp 97.8 F 12/10/24 07:32 Pulse 89 12/10/24 07:32 Resp 18 12/10/24 07:32 BP 128/63 12/10/24 07:32 Pulse Ox 99 12/10/24 07:32 O2 Del Method Room Air 12/10/24 07:32 BMI result Body Mass Index 28.9 Const: Other: General: moves and turn, sleeping not participate in conversaton Resp: CTA bilateral CVS: S1,S2,RRR GI: +BS, NT, no distention Skin: No rash Neuro: motor grossly intact, no involuntary or voluntary rigidity Psych: appropriate affect Objective Data Active Medications Acetaminophen (Acetaminophen Supp 650 Mg Supp.Rect) 650 mg [place] Q6H PRN PRN Reason: Fever Last Admin: 12/09/24 12:35 Dose: 650 mg Documented By: FAHAD Ceftriaxone Sodium (Ceftriaxone Sodium 2 Gm Vial) 2 gm IVPUSH Q12H [facility] Last Admin: 12/10/24 02:24 Dose: 2 gm Documented By: BECCA Diazepam (Diazepam 10 Mg/2 Ml Cartridge) 2.5 mg IVPUSH Q2H [facility] Last Admin: 12/10/24 10:39 Dose: 2.5 mg Documented By: YESSY Enoxaparin Sodium (Enoxaparin Sodium 40 Mg/0.4 Ml Syringe) 40 mg SUBCUT Q24H [facility] Last Admin: 12/09/24 14:07 Dose: 40 mg Documented By: FAHAD Comments: NEGAR cruz, verified w/ NINI Zazueta Erythromycin (Erythromycin Base 0.5% Oph Oin 1 Gm Tube) 1 cm EYE-BOTH QID [facility] Last Admin: 12/10/24 07:54 Dose: 1 cm Documented By: YESSY Doxycycline Hyclate 100 mg/ (Sodium Chloride) 250 mls @ 166.67 mls/hr IV Q12H [facility] Last Infusion: 12/10/24 02:36 Dose: Infused Documented By: BECCA Nutrition (Parenteral) (Parenteral Nutrition) 2,040 mls @ 85 mls/hr IV .Q24H [facility]; Protocol Stop: 12/10/24 20:59 Last Admin: 12/09/24 22:40 Dose: 85 mls/hr Documented By: BECCA Lactated Ringer's (Lr) 1,000 mls @ 125 mls/hr IVCONT .Q8H [facility] Last Admin: 12/10/24 09:40 Dose: 125 mls/hr Documented By: YESSY Vancomycin HCl 1,500 mg/ (Sodium Chloride) 500 mls @ 333.333 mls/hr IV Q12H [facility] Last Infusion: 12/10/24 04:00 Dose: Infused Documented By: BECCA Acyclovir Sodium 850 mg/ (Sodium Chloride) 267 mls @ 267 mls/hr IV Q8H [facility] Last Admin: 12/10/24 09:34 Dose: 267 mls/hr Documented By: YESSY Nutrition (Parenteral) (Parenteral Nutrition) 2,040 mls @ 85 mls/hr IV .Q24H [facility]; Protocol Stop: 12/11/24 20:59 Pharmacy Consult (Consult Rx Parenteral Nutrition Ordering) 1 each MISCELLANE DAILY PRN PRN Reason: Consult order Pharmacy Consult (Consult Rx Vancomycin Dosing) 1 each MISCELLANE DAILY PRN PRN Reason: Consult order Sodium Chloride (0.9 % Sodium Chloride Flush 3 Ml Syringe) 3 ml IVFLUSH QSHIFT [facility] Last Admin: 12/10/24 07:56 Dose: 3 ml Documented By: YESSY Labs 12/10/24 08:23 12/10/24 08:23 Labs: Laboratory Results - last 24 hr 12/09/24 12/09/24 12/09/24 03:47 12:41 12:42 MCV MCH MCHC RDW Plt Count MPV Absolute Nucleated RBC Nucleated RBC % (auto) Anion Gap Estim Creat Clear Calc Estimated GFR POC Glucose 95 Random Glucose Lactic Acid F/U @ 2Hr Cancelled Calcium Phosphorus Magnesium Total Creatine Kinase Albumin T.pallidum Ab (EIA) HIV 1&2 Ab/P24 Ag 4thGn Influenza Type A (PCR) NEGATIVE Influenza Type B (PCR) NEGATIVE RSV RNA Qual (PCR) NEGATIVE SARS-CoV-2 RNA (RT-PCR) NEGATIVE 12/09/24 12/09/2412/09/25 13:20 14:49 18:49 MCV 85.2 MCH 29.7 MCHC 34.9 RDW 11.8 Plt Count 177 MPV 11.0 Absolute Nucleated RBC 0.000 Nucleated RBC % (auto) 0.0 Anion Gap 16 16 Estim Creat Clear Calc 185.4 180.5 Estimated GFR > 60 > 60 POC Glucose 84 Random Glucose 101 95 Lactic Acid F/U @ 2Hr Calcium 9.4 9.2 Phosphorus 2.7 2.9 Magnesium 1.8 1.8 Total Creatine Kinase 79 Albumin 3.6 T.pallidum Ab (EIA) HIV 1&2 Ab/P24 Ag 4thGn Influenza Type A (PCR) Influenza Type B (PCR) RSV RNA Qual (PCR) SARS-CoV-2 RNA (RT-PCR) 12/09/24 12/10/24 12/10/24 19:52 00:13 06:11 MCV MCH MCHC RDW Plt Count MPV Absolute Nucleated RBC Nucleated RBC % (auto) Anion Gap Estim Creat Clear Calc Estimated GFR POC Glucose 78 110 Random Glucose Lactic Acid F/U @ 2Hr Calcium Phosphorus Magnesium Total Creatine Kinase Albumin T.pallidum Ab (EIA) Nonreactive HIV 1&2 Ab/P24 Ag 4thGn Nonreactive Influenza Type A (PCR) Influenza Type B (PCR) RSV RNA Qual (PCR) SARS-CoV-2 RNA (RT-PCR) 12/10/24 08:23 MCV 86.2 MCH 29.9 MCHC 34.6 RDW 11.9 Plt Count 165 MPV 11.3 Absolute Nucleated RBC 0.000 Nucleated RBC % (auto) 0.0 Anion Gap 14 Estim Creat Clear Calc 187.9 Estimated GFR > 60 POC Glucose Random Glucose 102 Lactic Acid F/U @ 2Hr Calcium 9.0 Phosphorus 2.7 Magnesium 1.9 Total Creatine Kinase Albumin 3.3 L T.pallidum Ab (EIA) HIV 1&2 Ab/P24 Ag 4thGn Influenza Type A (PCR) Influenza Type B (PCR) RSV RNA Qual (PCR) SARS-CoV-2 RNA (RT-PCR) Microbiology Microbiology Results: Microbiology 12/09/24 00:42 Blood Culture - Preliminary Blood - Venous No growth after 24 hours. 12/09/24 00:42 Blood Culture - Preliminary Blood - Venous No growth after 24 hours. Assessment and Plan (1) Psychiatric illness: Status: Acute (2) Schizophrenia: Status: Acute (3) Catatonia: Status: Acute Plan 24-year-old male with question of schizophrenia and autism spectrum disorder but no other PMH known admitted to adult Psychiatry with consult placed hospitalist service due to severe catatonia not eating for days and no response to IM diazepam. He was admitted to the medical floor and tehn transfer to the ICU for high doses of benzos and frequent dozing and be closely monitoring, he was transfered out of ICU on 12/07, He remains unresponsive, lethargic, vitals otherwise stable. Had temp of 105 on 12/08. FUO, SIRS (fever of up to 105, tachycardia, tachpnic, WBC 15). CXR negative, blood cultures pending, UA negative. Flu/RSV/Covid negative. Possible concern of NMS: however no rigidity, has not been on Psychotropic, mental status has not changed. CPK 79. ID consult pending. LP planned for today 12/10 Tic borne. Broad spec Abx withh vanco, ceftriaxone and addinc Acyclovir. check hiv, spylis screen, and tic borne panel pending. To continue Benzo (IV ativan or valium)_ as directed by Psych, monitor for respiratory effect. Continue PPN for nutritional support and monitor electrolytes and divalents closely Other treatment to be directed by Psych DVT prophylaxis-Lovenox Full code Patient requires inpatient stay for parental nutrition in the setting of severe catatonia and will also require a IV benzo challenge with cardiac monitoring Treatment course, testing was discussed with father Kvng over the phone Quality Stroke Does the patient have a stroke diagnosis?: No VTE Prior VTE?: No VTE Risk Level:: Medical - moderate - high VTE Device Contraindication: Treatment Not Indicated VTE Drug Contraindication: N/A - Med Ordered
[2024-12-10 12:16] LABS: Glucose, Whole Blood 87 mg/dL (60-115)
--- NOTE | 2024-12-10 12:16 | MHC.CLN ---
F/U CONTINUES WITH PPN. REVIEWED LABS. COMMUNICATED WITH PHARMACY. RECOMMEND CONTINUE PPN AT MAX GOAL RATE 85ML/HR WITH 96G LIPIDS TO PROVIDE 2000 TOTAL KCALS (23KCALS/KG), 204G DEXTROSE, 87G PROTEIN (1.0G/KG). REPLETE LYTES NEEDED. FOLLOW FOR PPN TOLERANCE AND LABS.
[2024-12-10 12:45] LABS: CSF Appearance Clear, Colorless
[2024-12-10 12:46] LABS: CSF Tube # 3
[2024-12-10 12:55] LABS: Glucose CSF 64 mg/dL; Total Protein CSF 20.3 mg/dL (15-45)
--- NOTE | 2024-12-10 13:29 | MHC.CM.PN ---
EMR REVIEWED, PT W/CATATONIA, PLAN FOR LUMBAR PUNCTURE TODAY, FAMILY BROUGHT IN GUARDIANSHIP PAPERWORK (ARE GOING TO COURT FOR GUARDIANSHIP), PSYCH SW COORDINATOR TO [employer] MAN PT WILL BE RETURNING TO [facility] ONCE MEDICALLY CLEARED, CM WILL CONT TO FOLLOW DC NEEDS.
[2024-12-10 13:42] LABS: Vancomycin Random 6.3 mcg/mL (15-20)
--- NOTE | 2024-12-10 13:48 | HE.PHANOTE ---
Re: Micaelao Pt's renal function is stable. Trough returned at 6.3. Dose increased to 1500mg q8h, with predicted AUC 539, predicted trough 13.6. Next trough 12/11 @ 1200.
[2024-12-10 14:18] LABS: Cryptococcus neoformans/gattii Not Detected (Not Detect.); Enterovirus Not Detected (Not Detect.); Escherichia coli K1 Not Detected (Not Detect.); Haemophilus influenzae Not Detected (Not Detect.); Herpes simplex virus 1 Not Detected (Not Detect.); Herpes simplex virus 2 Not Detected (Not Detect.); Human herpesvirus 6 Not Detected (Not Detect.); Human parechovirus Not Detected (Not Detect.); Listeria monocytogenes Not Detected (Not Detect.); Neisseria meningitidis Not Detected (Not Detect.); Streptococcus agalactiae Not Detected (Not Detect.); Streptococcus pneumoniae Not Detected (Not Detect.); Varicella zoster virus Not Detected (Not Detect.)
[2024-12-10] MEDS: Enoxaparin Sodium 40 MG/0.4 ML SYRINGE SUBCUT (14:33)
--- NOTE | 2024-12-10 15:27 | W.PM.IDCN ---
History of Present Illness Data of Consult Service Date: 12/10/24 Requesting physician: Montrell Ernandez Primary Care Provider: Unknown Physician HPI Reason for consult: lethargy,catatonic state He presents with fatigue and lethargy. He has schizophrenia and autism spectrum disoder. He had fever to 101 and now LP due to neck stiffness Review of Systems Review of Systems: Yes all other systems are reviewed and are negative PMFSH Past Medical History Medical History (Updated 12/10/24 @ 15:32 by Zoey Shelton MD) Fever, unknown origin Autism spectrum disorder Family History Family history: reviewed and not pertinent Social History Social History Household Members: None Household Members Other:: pt is admit fr M# for catatonia, not response to questions, JULIO CESAR Housing: Homeless Do you presently have visiting nurse or other home services: No Comment: 1:1 sitter at bedside Patient Tobacco Use Status: Never used Tobacco e-Cigarette/Vaping Use: Never Used Second Hand Smoke Exposure: No Use of substances other than those prescribed or required for medical reasons: Unable to respond Currently Displaying Signs/Symptoms of Drug Intoxication Withdrawal: No Advance Directives: No Advance Directives Information Provided: No Do you have a plan to hurt others: No Plan service: No Sexual orientation: Decline to Answer Meds Allergies Allergy/AdvReac Type Severity Reaction Status Date / Time No Known Allergies Allergy Verified 11/28/24 13:56 Active Medications: Current Medications Acetaminophen (Acetaminophen Supp 650 Mg Supp.Rect) 650 mg [place] Q6H PRN PRN Reason: Fever Last Admin: 12/09/24 12:35 Dose: 650 mg Ceftriaxone Sodium (Ceftriaxone Sodium 2 Gm Vial) 2 gm IVPUSH Q12H [facility] Last Admin: 12/10/24 14:33 Dose: 2 gm Diazepam (Diazepam 10 Mg/2 Ml Cartridge) 2.5 mg IVPUSH Q2H [facility] Last Admin: 12/10/24 15:07 Dose: 2.5 mg Enoxaparin Sodium (Enoxaparin Sodium 40 Mg/0.4 Ml Syringe) 40 mg SUBCUT Q24H [facility] Last Admin: 12/10/24 14:33 Dose: 40 mg Erythromycin (Erythromycin Base 0.5% Oph Oin 1 Gm Tube) 1 cm EYE-BOTH QID [facility] Last Admin: 12/10/24 14:52 Dose: 1 cm Doxycycline Hyclate 100 mg/ (Sodium Chloride) 250 mls @ 166.67 mls/hr IV Q12H [facility] Last Infusion: 12/10/24 14:05 Dose: Infused Nutrition (Parenteral) (Parenteral Nutrition) 2,040 mls @ 85 mls/hr IV .Q24H [facility]; Protocol Stop: 12/10/24 20:59 Last Admin: 12/09/24 22:40 Dose: 85 mls/hr Lactated Ringer's (Lr) 1,000 mls @ 125 mls/hr IVCONT .Q8H [facility] Last Admin: 12/10/24 09:40 Dose: 125 mls/hr Acyclovir Sodium 850 mg/ (Sodium Chloride) 267 mls @ 267 mls/hr IV Q8H [facility] Last Admin: 12/10/24 09:34 Dose: 267 mls/hr Nutrition (Parenteral) (Parenteral Nutrition) 2,040 mls @ 85 mls/hr IV .Q24H [facility]; Protocol Stop: 12/11/24 20:59 Vancomycin HCl 1,500 mg/ (Sodium Chloride) 500 mls @ 333.333 mls/hr IV Q8H [facility] Last Admin: 12/10/24 14:42 Dose: 333.33 mls/hr Pharmacy Consult (Consult Rx Parenteral Nutrition Ordering) 1 each MISCELLANE DAILY PRN PRN Reason: Consult order Pharmacy Consult (Consult Rx Vancomycin Dosing) 1 each MISCELLANE DAILY PRN PRN Reason: Consult order Sodium Chloride (0.9 % Sodium Chloride Flush 3 Ml Syringe) 3 ml IVFLUSH QSHIFT [facility] Last Admin: 12/10/24 15:07 Dose: 3 ml Home Medications ?Medication ?Instructions ?Recorded ?Confirmed ?Last Taken ?Type No Known Home Meds 12/04/24 12/04/24 Unknown History Physical Exam Vital Signs: Vital Signs: Last Vital Signs Temp 98.3 F 12/10/24 12:26 Pulse 78 12/10/24 12:26 Resp 18 12/10/24 12:26 BP 99/60 12/10/24 12:26 Pulse Ox 97 12/10/24 12:26 O2 Del Method Room Air 12/10/24 12:26 BMI result Body Mass Index 28.9 Const: General: cooperative HEENT: Head: Yes normal to inspection Face and sinus: Yes normal facial exam Mouth: Normal oral and palatal mucosa present Teeth and gingiva: dentition normal Eyes: General: appearance normal, both eyes and all related structures Pupils: Equal, round and reactive pupils present Resp: Effort & Inspection: normal respiratory effort Cardio: Rate: regular rate Rhythm: regular rhythm GI: Palpation (GI): Soft to palpation and nontender : General: Yes no CVA tenderness Back/Spine/Pelvis: Back: no CVA tenderness Skin: General skin exam: no rashes or lesions noted Neuro: General: moves all extremities Cranial nerves: Yes Equal, round and reactive pupils present Extrem: General: Yes normal to inspection Psych: Other: willfully keeps eyes closed doesnt speak or interact Appearance: grossly normal Results Labs 12/10/24 08:23 12/10/24 08:23 Labs: Short CBC 12/10/24 Range/Units 08:23 WBC 8.9 (4.8-10.8) X10*3/uL Hgb 12.3 L (14.0-18.0) g/dl Hct 35.5 L (42.0-52.0) % Plt Count 165 (160-400) X10*3/uL BMP 12/09/24 12/10/24 14:49 08:23 Sodium 136 137 Potassium 5.2 H 4.4 Chloride 106 107 Carbon Dioxide 19 L 20 L BUN 10 9 Creatinine 0.76 0.73 Calcium 9.2 9.0 Liver Function 12/10/24 Range/Units 08:23 Albumin 3.3 L (3.5-5.0) g/dL Microbiology Microbiology Results: Microbiology 12/10/24 11:44 Cerebrospinal Fluid Gram Stain - Final 12/10/24 11:44 Cerebrospinal Fluid CSF Examination - Final 12/10/24 11:44 Cerebrospinal Fluid Fluid Description - Final 12/09/24 00:42 Blood - Venous Blood Culture - Preliminary No growth after 24 hours. 12/09/24 00:42 Blood - Venous Blood Culture - Preliminary No growth after 24 hours. Assessment and Plan (1) Catatonia: Status: Acute (2) Schizophrenia: Status: Acute (3) Fever, unknown origin: Status: Acute Plan He may possibly have left sinus infection with blockage from cyst causing fever. He doesnt interact HIV and Hepatitis C negative. Would continue Ceftriaxone until taking po,total10 days Stop Acyclovir,Vancomycin Neurology/Psychiatry evaluation
[2024-12-10 15:33] LABS: Appearance CSF CLEAR; CSF Tube # 1; Color CSF COLORLESS; Red Blood Cell CSF 346 MM*3; White Blood Cell CSF 0 MM*3
[2024-12-10 15:38] LABS: Appearance CSF CLEAR; CSF Tube # 4; Color CSF COLORLESS; Red Blood Cell CSF 25 MM*3; White Blood Cell CSF 0 MM*3
[2024-12-10 18:35] LABS: Glucose, Whole Blood 86 mg/dL (60-115)
[2024-12-10] MEDS: Parenteral Nutrition 2,040 ML 85 ML IV (21:55)
[2024-12-10 23:35] LABS: Glucose, Whole Blood 100 mg/dL (60-115)
--- NOTE | 2024-12-11 | ECG_ITS ---
Test Reason : for ect Blood Pressure : */* mmHG Vent. Rate : 76 BPM Atrial Rate : 76 BPM P-R Int : 156 ms QRS Dur : 94 ms QT Int : 358 ms P-R-T Axes : 36 37 27 degrees QTcB Int : 402 ms Normal sinus rhythm Incomplete right bundle branch block Borderline ECG When compared with ECG of 29-Nov-2024 11:26, No significant change was found Referred By: Phan Saucedo Electronically Signed By: Chip Bustamante
[2024-12-11] MEDS: diazePAM 10 MG/2 ML CARTRIDGE 2.5 MG IVPUSH ×5 (00:47→11:07)
[2024-12-11] MEDS: cefTRIAXone sodium 2 GM VIAL IVPUSH ×2 (00:56→13:50)
[2024-12-11 01:01] VITALS: TEMP 36.8
[2024-12-11 03:26] VITALS: BP 110/58; PULSE 71; RESP 16; TEMP 36.7; O2SAT 100
[2024-12-11 05:41] LABS: Glucose, Whole Blood 93 mg/dL (60-115)
[2024-12-11] MEDS: Acetaminophen Supp 650 MG SUPP.RECT PR (05:47)
[2024-12-11 07:25] LABS: Albumin Level 3.5 g/dL (3.5-5.0); Anion Gap 10 (12-20); Blood Urea Nitrogen 7 mg/dL (9-16); Calcium 9.6 mg/dL (8.4-10.2); Carbon Dioxide 26 mmol/L (22-29); Chloride 108 mmol/L (96-108); Estimated Glomerular Filt Rate > 60; Glucose Random 98 mg/dL (60-115); Phosphorus 3.7 mg/dL (2.7-4.5); Potassium 4.2 mmol/L (3.3-5.1); Sodium 140 mmol/L (135-145)
[2024-12-11 07:28] VITALS: BP 118/65; PULSE 73; RESP 17; TEMP 36.6; O2SAT 99
[2024-12-11] MEDS: Lactated Ringers 1,000 ML 125 ML IVCONT ×2 (08:35→16:21)
[2024-12-11] MEDS: Erythromycin Base 0.5% Oph Oin 1 GM TUBE 1 CM EYE-BOTH ×4 (08:49→21:44)
--- NOTE | 2024-12-11 10:17 | MHC.CLN ---
F/U CONTINUE WITH PPN REVIEWED LABS DISCUSSED WITH PHARMACY CONTINUE PPN AT MAX GOAL RATE 85ML/HR WITH 96G LIPIDS PROVIDES 2000 TOTAL KCALS (23KCALS/KG), 204G DEXTROSE, 87G PROTEIN (1.0G/KG) REPLETE LYTES NEEDED
[2024-12-11 11:12] VITALS: BP 122/63; PULSE 76; RESP 17; TEMP 36.4; O2SAT 100
[2024-12-11 11:33] LABS: Glucose, Whole Blood 92 mg/dL (60-115)
--- NOTE | 2024-12-11 12:49 | MHC.CM.PN ---
CM met with Patient and his Father/Kvng at bedside, with Patient Experience Machine Driller/Elly. Kvng apparently dropped off paperwork over the weekend, for Guardianship, and he was looking for the completed document. While this CM returned to CM office to look into who has the paperwork, JACINTO was informed that Psychiatrist, Dr. Saucedo was meeting with Kvng at bedside, regarding the paperwork. CM will follow.
[2024-12-11] MEDS: Enoxaparin Sodium 40 MG/0.4 ML SYRINGE SUBCUT (13:50)
[2024-12-11] MEDS: LORazepam 2 MG/ML VIAL IVPUSH ×3 (14:19→21:44)
--- NOTE | 2024-12-11 14:29 | HO.PSYCHPN ---
Subjective Subjective Date of Service: 12/11/24 Reason For Visit: Catatonia need for parental nutrition Interim History: Met with patient; discussed with team including Dr. Ernandez and Dr. Canela; met with father LP so far mostly negative with a few parameters still pending Afebrile and vitals WNL Patient remains with eyes closed but is moving his body and head around on his own; sometimes role in his head around and around. Still does not respond to verbal stimuli. Waxy flexibility noted; initially only minimal negativeism however this increased with examiners manipulations. Has not open his eyes or talked since Friday 12/08 (per father patient also talked with his mother on the phone, talked with his grandmother). Mental Status Exam Mental Status Exam Narrative: Moving all limbs more naturally on his own; eyes closed; not responding to verbal stimuli; waxy flexibility; no rigidity but but still demonstrating negativism (though less so); responds to noxious stimuli/sternal rub and actively grimaces and pushes way examiners hand; mute, not eating/drinking; some mannerisms of role in his head around and around; intermittent grimacing for no apparent reason. Diagnostics Vital Signs (24Hr): Vital Signs - 24 hr 12/10/24 16:00 12/10/24 19:43 12/10/24 23:34 Temperature 98.4 F 98.8 F 98.7 F Pulse Rate 89 83 82 Respiratory Rate 18 16 16 Blood Pressure 114/72 104/55 L 119/54 L Pulse Oximetry 99 100 99 Oxygen Delivery Method Nasal Cannula Room Air 12/11/24 01:01 12/11/24 03:26 12/11/24 07:28 Temperature 98.2 F 98.1 F 97.9 F Pulse Rate 71 73 Respiratory Rate 16 17 Blood Pressure 110/58 L 118/65 Pulse Oximetry 100 99 Oxygen Delivery Method Room Air Room Air 12/11/24 11:12 Temperature 97.5 F Pulse Rate 76 Respiratory Rate 17 Blood Pressure 122/63 Pulse Oximetry 100 Oxygen Delivery Method Room Air BMI result Body Mass Index 28.9 Labs 12/10/24 08:23 12/11/24 06:31 Labs: Laboratory Results - last 48 hr 12/09/24 12/09/24 12/09/24 03:47 14:49 18:49 WBC RBC Hgb Hct MCV MCH MCHC RDW Plt Count MPV Absolute Nucleated RBC Nucleated RBC % (auto) Hold Purple Top Sodium 136 Potassium 5.2 H Chloride 106 Carbon Dioxide 19 L Anion Gap 16 BUN 10 Creatinine 0.76 Estim Creat Clear Calc 180.5 Estimated GFR > 60 POC Glucose 84 Random Glucose 95 Lactic Acid F/U @ 2Hr Cancelled Calcium 9.2 Phosphorus 2.9 Magnesium 1.8 Albumin CSF Tube Number CSF Volume CSF Appearance CSF Color CSF WBC CSF RBC CSF Appearance (b) CSF Glucose CSF Total Protein CSF C.neoform/gat PCR CSF CMV DNA (PCR) CSF Enterovirus (PCR) CSF E. coli K1 (PCR) CSF H. influenzae (PCR) CSF HSV I (PCR) CSF HSV II (PCR) CSF HHV 6 (PCR) CSF L.monocytogenes PCR CSF N. meningitidis PCR CSF Parechovirus (PCR) CSF S. agalactiae (PCR) CSF S. pneumoniae (PCR) CSF VZV (PCR) Random Vancomycin T.pallidum Ab (EIA) HIV 1&2 Ab/P24 Ag 4thGn 12/09/24 12/10/24 12/10/24 19:52 00:13 06:11 WBC RBC Hgb Hct MCV MCH MCHC RDW Plt Count MPV Absolute Nucleated RBC Nucleated RBC % (auto) Hold Purple Top Sodium Potassium Chloride Carbon Dioxide Anion Gap BUN Creatinine Estim Creat Clear Calc Estimated GFR POC Glucose 78 110 Random Glucose Lactic Acid F/U @ 2Hr Calcium Phosphorus Magnesium Albumin CSF Tube Number CSF Volume CSF Appearance CSF Color CSF WBC CSF RBC CSF Appearance (b) CSF Glucose CSF Total Protein CSF C.neoform/gat PCR CSF CMV DNA (PCR) CSF Enterovirus (PCR) CSF E. coli K1 (PCR) CSF H. influenzae (PCR) CSF HSV I (PCR) CSF HSV II (PCR) CSF HHV 6 (PCR) CSF L.monocytogenes PCR CSF N. meningitidis PCR CSF Parechovirus (PCR) CSF S. agalactiae (PCR) CSF S. pneumoniae (PCR) CSF VZV (PCR) Random Vancomycin T.pallidum Ab (EIA) Nonreactive HIV 1&2 Ab/P24 Ag 4thGn Nonreactive 12/10/24 12/10/24 12/10/24 08:23 11:44 11:44 WBC 8.9 RBC 4.12 L Hgb 12.3 L Hct 35.5 L MCV 86.2 MCH 29.9 MCHC 34.6 RDW 11.9 Plt Count 165 MPV 11.3 Absolute Nucleated RBC 0.000 Nucleated RBC % (auto) 0.0 Hold Purple Top Sodium 137 Potassium 4.4 Chloride 107 Carbon Dioxide 20 L Anion Gap 14 BUN 9 Creatinine 0.73 Estim Creat Clear Calc 187.9 Estimated GFR > 60 POC Glucose Random Glucose 102 Lactic Acid F/U @ 2Hr Calcium 9.0 Phosphorus 2.7 Magnesium 1.9 Albumin 3.3 L CSF Tube Number 3 1 CSF Volume CSF Appearance CSF Color CSF WBC CSF RBC CSF Appearance (b) CSF Glucose CSF Total Protein CSF C.neoform/gat PCR CSF CMV DNA (PCR) CSF Enterovirus (PCR) CSF E. coli K1 (PCR) CSF H. influenzae (PCR) CSF HSV I (PCR) CSF HSV II (PCR) CSF HHV 6 (PCR) CSF L.monocytogenes PCR CSF N. meningitidis PCR CSF Parechovirus (PCR) CSF S. agalactiae (PCR) CSF S. pneumoniae (PCR) CSF VZV (PCR) Random Vancomycin T.pallidum Ab (EIA) HIV 1&2 Ab/P24 Ag 4thGn 12/10/24 12/10/24 12/10/24 11:44 11:44 11:44 WBC RBC Hgb Hct MCV MCH MCHC RDW Plt Count MPV Absolute Nucleated RBC Nucleated RBC % (auto) Hold Purple Top Sodium Potassium Chloride Carbon Dioxide Anion Gap BUN Creatinine Estim Creat Clear Calc Estimated GFR POC Glucose Random Glucose Lactic Acid F/U @ 2Hr Calcium Phosphorus Magnesium Albumin CSF Tube Number 4 CSF Volume 4.0 4.0 CSF Appearance CLEAR CLEAR CSF Color COLORLESS CSF WBC CSF RBC CSF Appearance (b) CSF Glucose CSF Total Protein CSF C.neoform/gat PCR CSF CMV DNA (PCR) CSF Enterovirus (PCR) CSF E. coli K1 (PCR) CSF H. influenzae (PCR) CSF HSV I (PCR) CSF HSV II (PCR) CSF HHV 6 (PCR) CSF L.monocytogenes PCR CSF N. meningitidis PCR CSF Parechovirus (PCR) CSF S. agalactiae (PCR) CSF S. pneumoniae (PCR) CSF VZV (PCR) Random Vancomycin T.pallidum Ab (EIA) HIV 1&2 Ab/P24 Ag 4thGn 12/10/24 12/10/24 12/10/24 11:44 11:44 11:44 WBC RBC Hgb Hct MCV MCH MCHC RDW Plt Count MPV Absolute Nucleated RBC Nucleated RBC % (auto) Hold Purple Top Sodium Potassium Chloride Carbon Dioxide Anion Gap BUN Creatinine Estim Creat Clear Calc Estimated GFR POC Glucose Random Glucose Lactic Acid F/U @ 2Hr Calcium Phosphorus Magnesium Albumin CSF Tube Number CSF Volume CSF Appearance CSF Color COLORLESS CSF WBC 0 0 CSF RBC 346 25 CSF Appearance (b) Clear, Colorless CSF Glucose 64 CSF Total Protein 20.3 CSF C.neoform/gat PCR Not Detected CSF CMV DNA (PCR) Not Detected CSF Enterovirus (PCR) Not Detected CSF E. coli K1 (PCR) Not Detected CSF H. influenzae (PCR) Not Detected CSF HSV I (PCR) Not Detected CSF HSV II (PCR) Not Detected CSF HHV 6 (PCR) Not Detected CSF L.monocytogenes PCR Not Detected CSF N. meningitidis PCR Not Detected CSF Parechovirus (PCR) Not Detected CSF S. agalactiae (PCR) Not Detected CSF S. pneumoniae (PCR) Not Detected CSF VZV (PCR) Not Detected Random Vancomycin T.pallidum Ab (EIA) HIV 1&2 Ab/P24 Ag 4thGn 12/10/24 12/10/24 12/10/24 12:11 12:57 18:30 WBC RBC Hgb Hct MCV MCH MCHC RDW Plt Count MPV Absolute Nucleated RBC Nucleated RBC % (auto) Hold Purple Top Sodium Potassium Chloride Carbon Dioxide Anion Gap BUN Creatinine Estim Creat Clear Calc Estimated GFR POC Glucose 87 86 Random Glucose Lactic Acid F/U @ 2Hr Calcium Phosphorus Magnesium Albumin CSF Tube Number CSF Volume CSF Appearance CSF Color CSF WBC CSF RBC CSF Appearance (b) CSF Glucose CSF Total Protein CSF C.neoform/gat PCR CSF CMV DNA (PCR) CSF Enterovirus (PCR) CSF E. coli K1 (PCR) CSF H. influenzae (PCR) CSF HSV I (PCR) CSF HSV II (PCR) CSF HHV 6 (PCR) CSF L.monocytogenes PCR CSF N. meningitidis PCR CSF Parechovirus (PCR) CSF S. agalactiae (PCR) CSF S. pneumoniae (PCR) CSF VZV (PCR) Random Vancomycin 6.3 L T.pallidum Ab (EIA) HIV 1&2 Ab/P24 Ag 4thGn 12/10/24 12/11/24 12/11/24 23:05 05:32 06:31 WBC RBC Hgb Hct MCV MCH MCHC RDW Plt Count MPV Absolute Nucleated RBC Nucleated RBC % (auto) Hold Purple Top SEE NOTE Sodium 140 Potassium 4.2 Chloride 108 Carbon Dioxide 26 Anion Gap 10 L BUN 7 L Creatinine 0.70 Estim Creat Clear Calc 196.0 Estimated GFR > 60 POC Glucose 100 93 Random Glucose 98 Lactic Acid F/U @ 2Hr Calcium 9.6 D Phosphorus 3.7 Magnesium 2.0 Albumin 3.5 CSF Tube Number CSF Volume CSF Appearance CSF Color CSF WBC CSF RBC CSF Appearance (b) CSF Glucose CSF Total Protein CSF C.neoform/gat PCR CSF CMV DNA (PCR) CSF Enterovirus (PCR) CSF E. coli K1 (PCR) CSF H. influenzae (PCR) CSF HSV I (PCR) CSF HSV II (PCR) CSF HHV 6 (PCR) CSF L.monocytogenes PCR CSF N. meningitidis PCR CSF Parechovirus (PCR) CSF S. agalactiae (PCR) CSF S. pneumoniae (PCR) CSF VZV (PCR) Random Vancomycin T.pallidum Ab (EIA) HIV 1&2 Ab/P24 Ag 4thGn 12/11/24 11:28 WBC RBC Hgb Hct MCV MCH MCHC RDW Plt Count MPV Absolute Nucleated RBC Nucleated RBC % (auto) Hold Purple Top Sodium Potassium Chloride Carbon Dioxide Anion Gap BUN Creatinine Estim Creat Clear Calc Estimated GFR POC Glucose 92 Random Glucose Lactic Acid F/U @ 2Hr Calcium Phosphorus Magnesium Albumin CSF Tube Number CSF Volume CSF Appearance CSF Color CSF WBC CSF RBC CSF Appearance (b) CSF Glucose CSF Total Protein CSF C.neoform/gat PCR CSF CMV DNA (PCR) CSF Enterovirus (PCR) CSF E. coli K1 (PCR) CSF H. influenzae (PCR) CSF HSV I (PCR) CSF HSV II (PCR) CSF HHV 6 (PCR) CSF L.monocytogenes PCR CSF N. meningitidis PCR CSF Parechovirus (PCR) CSF S. agalactiae (PCR) CSF S. pneumoniae (PCR) CSF VZV (PCR) Random Vancomycin T.pallidum Ab (EIA) HIV 1&2 Ab/P24 Ag 4thGn Imaging Radiology Impressions: ITS Impressions Brain MRI 12/06/24 17:21 IMPRESSION: No acute intracranial hemorrhage. No signal abnormality to suggest encephalopathy Electronically signed by: James Conway MD 12/07/2024 08:43 AM EDT Lumbar Puncture Fluoroscopy 12/10/24 11:25 IMPRESSION: Successful fluoroscopy-guided lumbar puncture. Opening CSF pressure 14 cm of water. Clear CSF 16 mL fluid collected in test tubes and sent to lab. Electronically signed by: Edil Okeefe MD 12/11/2024 09:01 AM EDT RP Medications Medications Current Medications Acetaminophen (Acetaminophen Supp 650 Mg Supp.Rect) 650 mg VA Q6H PRN PRN Reason: Fever Last Admin: 12/11/24 05:47 Dose: 650 mg Ceftriaxone Sodium (Ceftriaxone Sodium 2 Gm Vial) 2 gm IVPUSH Q12H [facility] Last Admin: 12/11/24 13:50 Dose: 2 gm Enoxaparin Sodium (Enoxaparin Sodium 40 Mg/0.4 Ml Syringe) 40 mg SUBCUT Q24H [facility] Last Admin: 12/11/24 13:50 Dose: 40 mg Erythromycin (Erythromycin Base 0.5% Oph Oin 1 Gm Tube) 1 cm EYE-BOTH QID [facility] Last Admin: 12/11/24 13:50 Dose: 1 cm Lactated Ringer's (Lr) 1,000 mls @ 125 mls/hr IVCONT .Q8H [facility] Last Admin: 12/11/24 08:35 Dose: 125 mls/hr Nutrition (Parenteral) (Parenteral Nutrition) 2,040 mls @ 85 mls/hr IV .Q24H [facility]; Protocol Stop: 12/11/24 20:59 Last Admin: 12/10/24 21:55 Dose: 85 mls/hr Nutrition (Parenteral) (Parenteral Nutrition) 2,040 mls @ 85 mls/hr IV .Q24H [facility]; Protocol Stop: 12/12/24 20:59 Lorazepam (Lorazepam 2 Mg/Ml Vial) 2 mg IVPUSH Q4H [facility] Last Admin: 12/11/24 14:19 Dose: 2 mg Pharmacy Consult (Consult Rx Parenteral Nutrition Ordering) 1 each MISCELLANE DAILY PRN PRN Reason: Consult order Pharmacy Consult (Consult Rx Vancomycin Dosing) 1 each MISCELLANE DAILY PRN PRN Reason: Consult order Sodium Chloride (0.9 % Sodium Chloride Flush 3 Ml Syringe) 3 ml IVFLUSH QSHIFT [facility] Last Admin: 12/11/24 08:36 Dose: Not Given Allergies Allergies Allergy/AdvReac Type Severity Reaction Status Date / Time No Known Allergies Allergy Verified 11/28/24 13:56 Assessment & Plan Assessment & Plan (1) 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 Pt transferred to medical floor from ICU for continued IV benzodiazepines, IV fluids, TPN. 1.Initially Patient was 1st sent from M3 to the medical floor. Due to national shortage of liquid Ativan, He received midazolam 2 mg IV however patient had no response. He was then given diazepam 10 mg IV and within 30 seconds, he relaxed his muscles, folded his arms, turned over on his side and moved his legs, 1st natural movements observed for several days. Plant Manager collaborated with Dr. Lira and after literature review, both agreed that patient required immediate IV diazepam treatment to prevent patient from progressing towards a malignant catatonia; since patient had demonstrated initial response to diazepam he should be continued on diazepam; the literature recommends diazepam IV infusion at 10mg/500ml saline at 1.25mg/hour; diazepam infusion not available per hospital formulary so agreed to diazepam 2.5 mg IV push q.2 hours. 2)Hospitalist team/medical floor nursing staff felt patient should be observed on ICU for this administration and he was transferred to the ICU. In the ICU, Patient treated with IV Diazepam for about 36 hours with limited effect, with rigidity having resolved (and periodically briefly opening his eyes) but other symptoms of catatonia remaining including, not following verbal commands and negativism (resistance of examine his manipulation with equal strength). Team agreed to switch from diazepam to Ativan 2 mg IV q.i.d.. After about 12 hours patient improved some more, responding to noxious stimuli/sternal rub and grimaced and actively pushed examiner's hand away. After about 36 hours give or take, dose increase to Ativan 2 mg IV q4H. Patient able to be transferred back to the medical floor. 3) patient on medical floor receiving Ativan 2 mg IV q4h. He remains in the bed with his eyes closed, not responding to verbal commands but is overall moving all limbs more naturally on his own. Negative his remains. Plant Manager met with and discussed case with patient's father and then talked with patient's mother who currently lives in [place]. Collateral from patient's mother, Cliff, ([phone]) ASD; IEP, honors classes, working; spelling [employer]; graduated [employer]; -around 22 years old, seemed more reclusive and pt started changing -lost job September 2022; missing days, not focused; got fired at next job for going too slow -a year ago, less ADL's, not showering, less motivation, mom thinking more than just ASD since not like this at all in [place] -Refusing to go to appointments. Got him to ED and psych doctor evaluated but was not able to be Sectioned; mom tried other times to get him to doctor, to hospital, but police felt did not meet criteria to section him... -still minimal ADL's; in Fall 2023 started sleeping outside in the park which again, out of character -Jul 2024 making slow movements, like in slow motion, but able to pull out of it; kept sleeping outside in front of her door, peeing on himself or in bottles. -Episodes of staring off and not responding; intermittently would look agitated -Mom sent him to [place] to be with father -no hx of drug/alcohol use -had gone 36 hours w/out sleep, but not hyperactive, withdrawn and either quiet on laptop or making lots of food but not eating -no seizure hx -no hx of medication Impression: After receiving collateral from patient's mother, it seems that patient was demonstrating significant changes in his behavior, very different from his normal way of functioning and his normal expressions of autism. The behavioral changes described sound like prodrome of schizophrenia. Patient's father also observed patient responding to internal stimuli, also very different from his normal expressions. It is difficult to know the etiology of catatonia. People with autism, psychotic disorders, or taking a antipsychotic medications are all at increased risk for catatonia and patient has all 3 risk factors. Again from collateral it sounds very possible that catatonic symptoms started in the community in the week prior to this admission. Here at [facility] with IV benzodiazepines,, patient had observed but minimal improvement with IV diazepam; now on IV Ativan with some additional improvement. Discussed case thoroughly with Dr. Lira who agrees that current treatment plan of IV Ativan as both appropriate and necessary treatment to resolve catatonia and prevent malignant catatonia. Plant Manager has discussed the possibility of patient needing ECT treatment if IV benzos do not adequately resolve symptoms; family remains cautious about ECT but seems to understand that this could be necessary. Hospital course: ICU 12/06 Patient remains with same minimal improvement observed when starting diazepam; he is moving on his own a little more naturally though still minimally. Will appeared to be trying to open his eyes sometimes when his name is called. Continues with negativism however otherwise is not rigid. Plant Manager met with patient's father and stepmother Debra. Initially family expressed dissatisfaction with treatment and wanted patient transferred to [facility]. Dr. Jiang reached out to [facility] to discuss case and they declined to take patient at this time, not having a bed available and also not being able to provide ECT should patient require it. Patient's family accepted this. Plant Manager again spent about an hour providing education on catatonia, its causes and its treatments, including ECT; explained ECT procedure as well. Dr. Lira also provided the family with printed out literature regarding these topics, including ECT. After discussion, patient's family seemed to agree with current treatment plan of continuing with benzodiazepines. Since patient had only a minimal response to IV diazepam, decision was made to switch to IV Ativan to see if this would be more effective; also discussed with family who agreed with this plan. Plant Manager again offered to talk with family member who is a neurologist and gave them video game script writer's contact information to pass along. 12/07 some change in presentation as patient now responsive to noxious stimuli/chest rub, grimacing and pushing examiner's hand away. Plant Manager and Dr. Lira agree this is improvement and evidence that Ativan is helping (progression: rigidity and no response to noxious stimuli -- progressed to absence of rigidity but still no response to noxious stimuli--progressed to now, pt with active response to noxious stimuli). -Literature reviewed and after team discussion agreed to increase IV Ativan to 2 mg q.4h -brain MRI unremarkable -Discussed with Dr. Jiang who felt patient could be safely transferred back to medical floor out of ICU; family informed Medical floor: 12/08 patient remains catatonic, not opening his eyes, not responding to any verbal interactions; remains with negativism; however is moving increasingly or naturally on his own. Discussed with dr. Ernandez. -continue with Ativan 2 mg q4h for now 12/09 Last night/early AM pt spiked fever 105, tachy, tachypneic. Treated with abx, cooling blanket, rectal acetaminophen; CXR negative. Temp came down and pt only mildly tachy; RR 18. Also...This morning, pt woke up, talked with Dr. Ernandez and asked for a sandwich; a little later with nurse, he knew his name, and that he was at [facility]. Later in day, on approach, pt sleeping, sometimes yawning; did not wake up to speaking his name; video game script writer did not do sternal rub -tried to test for rigidity but not able to assess since pt's remains w/ negativism (catatonic symptom of resisting examiner w/ equal force) but pt appears to be moving around easily enough on his own. -did not really at risk for NMS since pt only on Diazepam T:99.4 (on cooling blanket) BP:112/68 O2 96% HR 98 RR: 18 lips appear swollen UA unremarkable CXR unremarkable negative covid/rsv/flu Plant Manager discussed case with Dr. Lira; video game script writer Discussed case with Dr. Ernandez regarding blood cultures/LP; at this time Dr. Ernandez would like to continue monitoring but advance to LP if patient does not improve. Hospital ran out of Ativan; will switch back to diazepam Impression: Despite the fact that patient spiked a fever and was tachy and tachypneic, the fact that he woke up, was talking, interacting oriented to self and place was very encouraging. Ativan seems to have been more effective than diazepam and remains preferred, however diazepam has had some positive effect. Patient being worked up for infectious etiology, though he does not appear ill looking. It is possible that fever, increased heart rate respiratory rate was a brief crossing into a malignant catatonia; will continue with current treatment plan; ECT remains consider most effective treatment however need court order 12/11 LP so far mostly negative with a few parameters still pending; Afebrile and vitals WNL Patient remains with eyes closed but is moving his body and head around on his own; sometimes role in his head around and around. Still does not respond to verbal stimuli. Waxy flexibility noted; initially only minimal negativeism however this increased with examiners manipulations. Has not open his eyes or talked since Friday 12/08 (per father patient also talked with his mother on the phone, talked with his grandmother). -discussed with pharmacist and some additional Ativan has been procured though in a very limited supply; will restart Ativan IV -of note diazepam infusion is not possible per pharmacy -would also consider memantine, though must be taken p.o. Impression: Patient has certainly improved with IV benzodiazepines, lorazepam seeming to be the most effective. However he remains with severe catatonia. Although he open his eyes and spoke briefly, he has not done so for 3 days and for the past 3 days he has remained with eyes closed, nonverbal, not responding to verbal cues, not eating, not drinking. Thus far, workup for infection has been unremarkable, with only a few LP labs still pending. Because no infectious process can be identified patient is episode of fever, tachycardia and tachypnea remain concerning for possible brief transitioned into malignant catatonia. Currently patient is afebrile and vitals WNL however the risks increase the longer catatonia persists and ECT remains the most viable treatment option -court scheduled for today Plan: Back to Ativan 2mg IV q4h (When available, Ativan IV 2 mg Q4h; will resume once supply procured; (literature reports some cases have required up to 30 mg daily) (If no Ativan, then diazepam IV 2.5 mg q.2h; helpful but with limited effect) If catatonia persists despite benzodiazepine being treatment, next phase of treatment is ECT Currently patient is on a Section 7 (patient signed a 3 day notice; filed in court) Will try to reach out to mother for additional information Neurology consult placed Brain MRI unremarkable Hospitalist note: Fever/tachycardia/tachypnea overnight. CXR negative, blood cultures pending, UA negative. Possible concern of NMS: however no rigidity, has not been on Psychotropic, mental status has not changed. check CPK, continue hydration, check flu/rsv/covid swab. To continue Benzo (IV ativan or valium)_ as directed by Psych presently on 2 mg q 4 hours, monitor for respiratory effect. Continue PPN for nutritional support and monitor electrolytes and divalents closely Other treatment to be directed by Psych DVT prophylaxis-Lovenox Full code Patient requires inpatient stay for parental nutrition in the setting of severe catatonia and will also require a IV benzo challenge with cardiac monitoring Patient educated on: diagnosis Informed Consent: does not understand Reason for continued inpatient stay Substantial Risk for: inability to function Time Spent With Patient Time: Total time managing care of this patient today ____ minutes.
--- NOTE | 2024-12-11 15:33 | P.PNIM_ITS ---
Subjective Subjective Date of Service: 12/11/24 Interval History: No charted fever since yesterday. Vital sings are other stable. Review of Systems Patient remains with eyes closed but is moving his body and head around on his own Review of Systems: Yes all other systems are reviewed and are negative Physical Exam 2 Vital Signs: Vital Signs: Last Vital Signs Temp 97.5 F 12/11/24 11:12 Pulse 76 12/11/24 11:12 Resp 17 12/11/24 11:12 BP 122/63 12/11/24 11:12 Pulse Ox 100 12/11/24 11:12 O2 Del Method Room Air 12/11/24 11:12 BMI result Body Mass Index 28.9 General: moves and turn, not participate in conversaton Resp: CTA bilateral CVS: S1,S2,RRR GI: +BS, NT, no distention Skin: No rash Neuro: motor grossly intact, no involuntary or voluntary rigidity Psych: appropriate affect Objective Data Active Medications Acetaminophen (Acetaminophen Supp 650 Mg Supp.Rect) 650 mg [place] Q6H PRN PRN Reason: Fever Last Admin: 12/11/24 05:47 Dose: 650 mg Documented By: JAYA Ceftriaxone Sodium (Ceftriaxone Sodium 2 Gm Vial) 2 gm IVPUSH Q12H [facility] Last Admin: 12/11/24 13:50 Dose: 2 gm Documented By: DIDI Enoxaparin Sodium (Enoxaparin Sodium 40 Mg/0.4 Ml Syringe) 40 mg SUBCUT Q24H [facility] Last Admin: 12/11/24 13:50 Dose: 40 mg Documented By: DIDI Erythromycin (Erythromycin Base 0.5% Oph Oin 1 Gm Tube) 1 cm EYE-BOTH QID [facility] Last Admin: 12/11/24 13:50 Dose: 1 cm Documented By: DIDI Lactated Ringer's (Lr) 1,000 mls @ 125 mls/hr IVCONT .Q8H [facility] Last Admin: 12/11/24 08:35 Dose: 125 mls/hr Documented By: DIDI Nutrition (Parenteral) (Parenteral Nutrition) 2,040 mls @ 85 mls/hr IV .Q24H [facility]; Protocol Stop: 12/11/24 20:59 Last Admin: 12/10/24 21:55 Dose: 85 mls/hr Documented By: BECCA Nutrition (Parenteral) (Parenteral Nutrition) 2,040 mls @ 85 mls/hr IV .Q24H [facility]; Protocol Stop: 12/12/24 20:59 Lorazepam (Lorazepam 2 Mg/Ml Vial) 2 mg IVPUSH Q4H [facility] Last Admin: 12/11/24 14:19 Dose: 2 mg Documented By: DIDI Pharmacy Consult (Consult Rx Parenteral Nutrition Ordering) 1 each MISCELLANE DAILY PRN PRN Reason: Consult order Pharmacy Consult (Consult Rx Vancomycin Dosing) 1 each MISCELLANE DAILY PRN PRN Reason: Consult order Sodium Chloride (0.9 % Sodium Chloride Flush 3 Ml Syringe) 3 ml IVFLUSH QSHIFT [facility] Last Admin: 12/11/24 08:36 Dose: Not Given Documented By: DIDI Non-Admin Reason: IV Running Labs 12/10/24 08:23 12/11/24 06:31 Labs: Laboratory Results - last 24 hr 12/10/24 12/10/24 12/10/24 11:44 11:44 11:44 Hold Purple Top Anion Gap Estim Creat Clear Calc Estimated GFR POC Glucose Random Glucose Calcium Phosphorus Magnesium Albumin CSF Tube Number 1 4 CSF Volume 4.0 4.0 CSF Appearance CLEAR CSF Color CSF WBC CSF RBC 12/10/24 12/10/24 12/10/24 11:44 11:44 11:44 Hold Purple Top Anion Gap Estim Creat Clear Calc Estimated GFR POC Glucose Random Glucose Calcium Phosphorus Magnesium Albumin CSF Tube Number CSF Volume CSF Appearance CLEAR CSF Color COLORLESS COLORLESS CSF WBC 0 0 CSF RBC 346 12/10/24 12/10/24 12/10/24 11:44 18:30 23:05 Hold Purple Top Anion Gap Estim Creat Clear Calc Estimated GFR POC Glucose 86 100 Random Glucose Calcium Phosphorus Magnesium Albumin CSF Tube Number CSF Volume CSF Appearance CSF Color CSF WBC CSF RBC 25 12/11/24 12/11/24 12/11/24 05:32 06:31 11:28 Hold Purple Top SEE NOTE Anion Gap 10 L Estim Creat Clear Calc 196.0 Estimated GFR > 60 POC Glucose 93 92 Random Glucose 98 Calcium 9.6 D Phosphorus 3.7 Magnesium 2.0 Albumin 3.5 CSF Tube Number CSF Volume CSF Appearance CSF Color CSF WBC CSF RBC Microbiology Microbiology Results: Microbiology 12/10/24 11:44 Gram Stain - Final Cerebrospinal Fluid CSF Examination - Final Fluid Description - Final CSF Culture - Preliminary No growth after 1 day 12/09/24 00:42 Blood Culture - Preliminary Blood - Venous No growth after 48 hours. 12/09/24 00:42 Blood Culture - Preliminary Blood - Venous No growth after 48 hours. Assessment and Plan (1) Psychiatric illness: Status: Acute (2) Schizophrenia: Status: Acute (3) Catatonia: Status: Acute Plan 24-year-old male with question of schizophrenia and autism spectrum disorder but no other PMH known admitted to adult Psychiatry with consult placed hospitalist service due to severe catatonia not eating for days and no response to IM diazepam. He was admitted to the medical floor and tehn transfer to the ICU for high doses of benzos and frequent dozing and be closely monitoring, he was transfered out of ICU on 12/07, He remains unresponsive, lethargic, vitals otherwise stable. Had temp of 105 on 12/08. FUO, SIRS (fever of up to 105, tachycardia, tachpnic, WBC 15). CXR negative, blood cultures pending, UA negative. Flu/RSV/Covid negative. Possible concern of NMS: however no rigidity, has not been on Psychotropic, mental status has not changed. CPK 79. LP done : wbc :0 ,rbc:25 ,glucose :64,csf protein :20.3 meningitis and encephalitis panel neg except csf vdrl and lyme testing pending CSF culture preliminary negative Blood culture negative at 48 hours Patient was seen by infectious disease: He may possibly have left sinus infection with blockage from cyst causing fever. Continue ceftriaxone. Of acyclovir and vancomycin. as above :The patient is being treated for catatonia and remains in a catatonic state despite many days of IV benzodiazepine therapy. During this period, the patient developed a fever up to 105?F. A comprehensive workup?including chest X- ray, urinalysis, influenza/RSV/COVID testing, and lumbar puncture?was unremarkable(please see above). Infectious Disease evaluated the patient and attributed the fever to likely sinusitis. The fever has since resolved. Psychiatry is planning to proceed with ECT as the next step in management. An ECG was reviewed and found to be essentially normal. While there are no absolute contraindications to ECT, the decision to proceed lies with the Psychiatry team in collaboration with the patient or their legal sales representative adding machines. Standard ECT protocols should be followed to minimize the risks and complications, including but not limited to aspiration. To continue Benzo (IV ativan or valium)-as directed by Psych, monitor for respiratory effect. Continue PPN for nutritional support and monitor electrolytes and divalents closely Other treatment to be directed by Psych. DVT prophylaxis-Lovenox Full code Ongoing need inpatient stay for parental nutrition in the setting of severe catatonia and will also require a IV benzo challenge with cardiac monitoring We discussed above in detail with patient's father at bedside/psych team present also. Quality Stroke Does the patient have a stroke diagnosis?: No VTE Prior VTE?: No VTE Risk Level:: Medical - moderate - high VTE Device Contraindication: Treatment Not Indicated VTE Drug Contraindication: N/A - Med Ordered
[2024-12-11 16:00] VITALS: BP 120/73; PULSE 66; RESP 20; TEMP 36.9; O2SAT 100
[2024-12-11 18:44] LABS: Glucose, Whole Blood 105 mg/dL (60-115)
[2024-12-11 19:19] VITALS: BP 119/67; PULSE 75; RESP 17; TEMP 36.4; O2SAT 100
[2024-12-11 21:04] LABS: A. Phagocytphilium DNA,RT-PCR NOT DETECTED (NOT DETECTED); Babesia Microti DNA, RT-PCR NOT DETECTED (NOT DETECTED); Borrelia Miyamotoi,DNA RT-PCR NOT DETECTED (NOT DETECTED); E.Chaffeensis DNA RT-PCR NOT DETECTED (NOT DETECTED); Lyme(Borrelia ssp)DNA RT-PCR NOT DETECTED (NOT DETECTED)
[2024-12-11 21:11] LABS: Glucose, Whole Blood 88 mg/dL (60-115)
[2024-12-11] MEDS: 0.9 % Sodium Chloride Flush 3 ML SYRINGE IVFLUSH (21:44)
[2024-12-11] MEDS: Parenteral Nutrition 2,040 ML 85 ML IV (21:44)
[2024-12-12] VITALS (12 sets, daily range): BP systolic 100–147; BP diastolic 53–68; PULSE 67–89; RESP 16–20; TEMP 36.4–37.4; O2SAT 95–99
[2024-12-12] MEDS: Lactated Ringers 1,000 ML 125 ML IVCONT ×3 (00:03→18:30)
[2024-12-12 00:56] LABS: Glucose, Whole Blood 101 mg/dL (60-115)
[2024-12-12] MEDS: LORazepam 2 MG/ML VIAL IVPUSH ×2 (02:17→06:04)
[2024-12-12] MEDS: cefTRIAXone sodium 2 GM VIAL IVPUSH ×2 (02:19→14:26)
[2024-12-12 06:14] LABS: Glucose, Whole Blood 101 mg/dL (60-115)
[2024-12-12 08:12] LABS: Albumin Level 3.4 g/dL (3.5-5.0); Anion Gap 13 (12-20); Blood Urea Nitrogen 7 mg/dL (9-16); Calcium 9.6 mg/dL (8.4-10.2); Carbon Dioxide 25 mmol/L (22-29); Chloride 106 mmol/L (96-108); Creatinine Clr Calc Pharmacy 193.2; Estimated Glomerular Filt Rate > 60; Glucose Random 87 mg/dL (60-115); Magnesium 1.9 mg/dL (1.6-2.6); Phosphorus 4.4 mg/dL (2.7-4.5); Potassium 4.3 mmol/L (3.3-5.1); Sodium 140 mmol/L (135-145)
[2024-12-12] MEDS: 0.9 % Sodium Chloride Flush 3 ML SYRINGE IVFLUSH ×3 (08:27→21:46)
[2024-12-12] MEDS: Erythromycin Base 0.5% Oph Oin 1 GM TUBE 1 CM EYE-BOTH ×3 (08:27→21:46)
[2024-12-12 11:36] LABS: Glucose, Whole Blood 86 mg/dL (60-115)
--- NOTE | 2024-12-12 12:19 | MHC.SHP ---
Pre-Procedural Eval Section A - 24 Hr Update-Section A only Date of Service: 12/12/24 The patient is an INPATIENT: Yes The patient has been examined within 24 hours of the surgical procedure. The History & Physical has been completed within 30 days and I have reviewed it.: Yes Section B - Complete if H&P > 30 days Chief Complaint: Catatonia need for parental nutrition Details of Present Illness: remains with severe catatonia, not opening eyes, not talking, eating or drinking; not getting out of bed Relevant Family History (Specify if Yes): No Present Medications: None (ativan) Allergies: Allergies Allergy/AdvReac Type Severity Reaction Status Date / Time No Known Allergies Allergy Verified 11/28/24 13:56 Exam Surgical H&P Exam: Normal: Heart (mild tachycardia; reg rhythm), Normal: Lungs and Normal: Neurological (not responding to verbal stimuli) Plan Diagnosis/Plan: Unchanged I have reviewed the history and physical and performed a pertinent physical examination on my patient. No changes have occurred unless specified. Time Spent With Patient Time: Total time managing care of this patient today ____ minutes.
[2024-12-12] MEDS: Lactated Ringers 1,000 ML 100 ML IVCONT (12:28)
--- NOTE | 2024-12-12 12:47 | HO.ECTPROC ---
ECT Procedure Note Diagnosis/Treatment Date of Service: 12/12/24 Diagnosis: Catatonia Current Treatment Number: 1 Treatment: Series Interval Clinical Notes: remains with severe catatonia requiring IV fluids/nutrition; not opening eyes or responding to verbal stimuli; not talking Time: Total time managing care of this patient today ____ minutes. ECT Settings Device: THYMATRON DGx Electrode Placement: Bifrontal Program/Pulse Width: 0.50 Energy Percent: 100 Seizure Duration By EEG (in seconds): 40 Medications Administration General Anesthetic: Etomidate (16) Muscle Relaxant: Succinylcholine (100) Airway Management Airway Management: Bag Mask Ventilation Treatment Recommendations No Changes Recommended: No change Electrode Placement: Bifrontal Program/Pulse Width: 0.50 Energy Percent: 100 Notes: continue with BiFrontal unless pt not improving, then rec consider BiTemporal assisted by Dr. Lira who agrees with plan Pt Tolerated Procedure w/o Issue: Yes
--- NOTE | 2024-12-12 13:49 | PC.NURSE ---
patient returned from ECT. On 2 L nasal cannula. Patient repositioned in bed. He followed command once by lifting his arm. Coughed and suctioned. Complied by opening his mouth for suctioning. Not opening eyes or responding verbally to commands.
[2024-12-12] MEDS: Enoxaparin Sodium 40 MG/0.4 ML SYRINGE SUBCUT (14:29)
[2024-12-12] MEDS: diazePAM 10 MG/2 ML CARTRIDGE 5 MG IVPUSH ×2 (15:00→21:45)
--- NOTE | 2024-12-12 15:37 | PC.NURSE ---
s/p ECT today, eyes closed not opening his eyes to verbal stimuli , cooperating with the mouth care
--- NOTE | 2024-12-12 15:40 | P.PNIM_ITS ---
Subjective Subjective Date of Service: 12/12/24 Interval History: catatonia Review of Systems s/p ect. eyes closes ,said ''ya but afterword did not answer any questions Physical Exam 2 Vital Signs: Vital Signs: Last Vital Signs Temp 98.3 F 12/12/24 15:33 Pulse 76 12/12/24 15:33 Resp 20 12/12/24 15:33 BP 103/61 12/12/24 15:33 Pulse Ox 98 12/12/24 15:33 O2 Del Method Nasal Cannula 12/12/24 13:15 O2 Flow Rate 2 12/12/24 13:15 BMI result Body Mass Index 28.9 General: moves and turn, not participate in conversaton Resp: CTA bilateral CVS: S1,S2,RRR GI: +BS, NT, no distention Skin: No rash Neuro: motor grossly intact, no involuntary or voluntary rigidity Psych: appropriate affect Objective Data Active Medications Acetaminophen (Acetaminophen Supp 650 Mg Supp.Rect) 650 mg [place] Q6H PRN PRN Reason: Fever Last Admin: 12/11/24 05:47 Dose: 650 mg Documented By: JAYA Ceftriaxone Sodium (Ceftriaxone Sodium 2 Gm Vial) 2 gm IVPUSH Q12H [facility] Last Admin: 12/12/24 14:26 Dose: 2 gm Documented By: YESSY Diazepam (Diazepam 10 Mg/2 Ml Cartridge) 5 mg IVPUSH TID [facility] Last Admin: 12/12/24 15:00 Dose: 5 mg Documented By: YESSY Diazepam (Diazepam 10 Mg/2 Ml Cartridge) 5 mg IVPUSH DAILY PRN PRN Reason: diazepam withdrawal Enoxaparin Sodium (Enoxaparin Sodium 40 Mg/0.4 Ml Syringe) 40 mg SUBCUT Q24H [facility] Last Admin: 12/12/24 14:29 Dose: 40 mg Documented By: YESSY Erythromycin (Erythromycin Base 0.5% Oph Oin 1 Gm Tube) 1 cm EYE-BOTH QID [facility] Last Admin: 12/12/24 13:00 Dose: Not Given Documented By: YESSY Non-Admin Reason: Off Unit: Surgery Lactated Ringer's (Lr) 1,000 mls @ 125 mls/hr IVCONT .Q8H [facility] Last Admin: 12/12/24 08:24 Dose: 125 mls/hr Documented By: YESSY Nutrition (Parenteral) (Parenteral Nutrition) 2,040 mls @ 85 mls/hr IV .Q24H [facility]; Protocol Stop: 12/12/24 20:59 Last Admin: 12/11/24 21:44 Dose: 85 mls/hr Documented By: MICHAEL Nutrition (Parenteral) (Parenteral Nutrition) 2,040 mls @ 85 mls/hr IV .Q24H [facility]; Protocol Stop: 12/13/24 20:59 Lactated Ringer's (Lr) 1,000 mls @ 100 mls/hr IVCONT .Q10H [facility] Last Admin: 12/12/24 12:28 Dose: 100 mls/hr Documented By: XAVIER Naloxone HCl (Naloxone Hcl 0.4 Mg/Ml Vial) 0.04 mg IVPUSH Q5M PRN PRN Reason: Excessive sedation or RR < 8 Pharmacy Consult (Consult Rx Parenteral Nutrition Ordering) 1 each MISCELLANE DAILY PRN PRN Reason: Consult order Pharmacy Consult (Consult Rx Vancomycin Dosing) 1 each MISCELLANE DAILY PRN PRN Reason: Consult order Sodium Chloride (0.9 % Sodium Chloride Flush 3 Ml Syringe) 3 ml IVFLUSH QSHIFT [facility] Last Admin: 12/12/24 15:27 Dose: 3 ml Documented By: YESSY Labs 12/10/24 08:23 12/12/24 07:20 Labs: Laboratory Results - last 24 hr 12/09/24 12/11/24 12/11/24 19:52 18:05 20:57 Hold Purple Top Anion Gap Estim Creat Clear Calc Estimated GFR POC Glucose 105 88 Random Glucose Calcium Phosphorus Magnesium Albumin A.phagocytophil DNA PCR NOT DETECTED Babesia microti DNA PCR NOT DETECTED Borrelia sp DNA (PCR) NOT DETECTED Borrelia miyamotoi (PCR) NOT DETECTED E.chaffeensis DNA (PCR) NOT DETECTED Tick-borne Disease PCR SEE NOTE 12/12/24 12/12/24 12/12/24 00:52 06:07 07:20 Hold Purple Top SEE NOTE Anion Gap 13 Estim Creat Clear Calc 193.2 Estimated GFR > 60 POC Glucose 101 101 Random Glucose 87 Calcium 9.6 Phosphorus 4.4 Magnesium 1.9 Albumin 3.4 L A.phagocytophil DNA PCR Babesia microti DNA PCR Borrelia sp DNA (PCR) Borrelia miyamotoi (PCR) E.chaffeensis DNA (PCR) Tick-borne Disease PCR 12/12/24 11:30 Hold Purple Top Anion Gap Estim Creat Clear Calc Estimated GFR POC Glucose 86 Random Glucose Calcium Phosphorus Magnesium Albumin A.phagocytophil DNA PCR Babesia microti DNA PCR Borrelia sp DNA (PCR) Borrelia miyamotoi (PCR) E.chaffeensis DNA (PCR) Tick-borne Disease PCR Microbiology Microbiology Results: Microbiology 12/10/24 11:44 Gram Stain - Final Cerebrospinal Fluid CSF Examination - Final Fluid Description - Final CSF Culture - Preliminary No growth after 2 days Assessment and Plan (1) Psychiatric illness: Status: Acute (2) Schizophrenia: Status: Acute (3) Catatonia: Status: Acute Plan 24-year-old male with question of schizophrenia and autism spectrum disorder but no other PMH known admitted to adult Psychiatry with consult placed hospitalist service due to severe catatonia not eating for days and no response to IM diazepam. He was admitted to the medical floor and tehn transfer to the ICU for high doses of benzos and frequent dozing and be closely monitoring, he was transfered out of ICU on 12/07, He remains unresponsive, lethargic, vitals otherwise stable. Had temp of 105 on 12/08. FUO, SIRS (fever of up to 105, tachycardia, tachpnic, WBC 15). CXR negative, blood cultures pending, UA negative. Flu/RSV/Covid negative. Possible concern of NMS: however no rigidity, has not been on Psychotropic, mental status has not changed. CPK 79. LP done : wbc :0 ,rbc:25 ,glucose :64,csf protein :20.3 meningitis and encephalitis panel neg except csf vdrl and lyme testing pending CSF culture preliminary negative Blood culture negative at 48 hours Patient was seen by infectious disease: He may possibly have left sinus infection with blockage from cyst causing fever. Continue ceftriaxone. Of acyclovir and vancomycin. as above :The patient is being treated for catatonia and remains in a catatonic state despite many days of IV benzodiazepine therapy. During this period, the patient developed a fever up to 105?F. A comprehensive workup?including chest X- ray, urinalysis, influenza/RSV/COVID testing, and lumbar puncture?was unremarkable(please see above). Infectious Disease evaluated the patient and attributed the fever to likely sinusitis. The fever has since resolved. s/p ect ,seen again -seems similar . To continue Benzo (IV ativan or valium)-as directed by Psych, monitor for respiratory effect. Continue PPN for nutritional support and monitor electrolytes and divalents closely Other treatment to be directed by Psych. DVT prophylaxis-Lovenox Full code Ongoing need inpatient stay for parental nutrition in the setting of severe catatonia and will also require a IV benzo challenge with cardiac monitoring We discussed above in detail with patient's father at bedside/psych team present also. Quality Stroke Does the patient have a stroke diagnosis?: No VTE Prior VTE?: No VTE Risk Level:: Medical - moderate - high VTE Device Contraindication: Treatment Not Indicated VTE Drug Contraindication: N/A - Med Ordered
[2024-12-12 18:18] LABS: Glucose, Whole Blood 92 mg/dL (60-115)
[2024-12-12] MEDS: Parenteral Nutrition 2,040 ML 85 ML IV (21:45)
--- NOTE | 2024-12-12 22:47 | HO.PSYCHPN ---
Subjective Subjective Date of Service: 12/12/24 Reason For Visit: Catatonia need for parental nutrition Interim History: no change in presentation proceed with ECT and will continue diazepam IV Mental Status Exam Mental Status Exam Narrative: Moving all limbs more naturally on his own; eyes closed; not responding to verbal stimuli; waxy flexibility; no rigidity but but still demonstrating [place] (when pt applies opposite force to examiner); responds to noxious stimuli/sternal rub and actively grimaces and pushes way examiners hand; mute, not eating/drinking; some mannerisms of rolling in his head around and around; intermittent grimacing for no apparent reason. Diagnostics Vital Signs (24Hr): Vital Signs - 24 hr 12/12/24 00:00 12/12/24 03:15 12/12/24 06:58 Temperature 97.8 F 97.5 F 98.0 F Pulse Rate 75 67 74 Respiratory Rate 16 18 18 Blood Pressure 106/54 L 100/56 L 119/53 L Pulse Oximetry 98 98 97 Oxygen Delivery Method Room Air Room Air Room Air Oxygen Flow Rate 12/12/24 10:54 12/12/24 12:50 12/12/24 12:55 Temperature 98.5 F 98.0 F Pulse Rate 88 89 82 Respiratory Rate 18 19 19 Blood Pressure 111/63 147/65 H 109/56 L Pulse Oximetry 98 95 95 Oxygen Delivery Method Room Air Nasal Cannula Nasal Cannula Oxygen Flow Rate 3 3 12/12/24 13:00 12/12/24 13:05 12/12/24 13:15 Temperature 99.3 F Pulse Rate 88 88 87 Respiratory Rate 19 19 17 Blood Pressure 108/56 L 106/55 L 101/56 L Pulse Oximetry 96 95 97 Oxygen Delivery Method Nasal Cannula Room Air Nasal Cannula Oxygen Flow Rate 3 2 12/12/24 15:33 12/12/24 19:53 Temperature 98.3 F 98.7 F Pulse Rate 76 83 Respiratory Rate 20 18 Blood Pressure 103/61 116/68 Pulse Oximetry 98 99 Oxygen Delivery Method Room Air Oxygen Flow Rate BMI result Body Mass Index 28.9 Labs 12/10/24 08:23 12/12/24 07:20 Labs: Laboratory Results - last 48 hr 12/09/24 12/10/24 12/11/24 19:52 23:05 05:32 Hold Purple Top Sodium Potassium Chloride Carbon Dioxide Anion Gap BUN Creatinine Estim Creat Clear Calc Estimated GFR POC Glucose 100 93 Random Glucose Calcium Phosphorus Magnesium Albumin A.phagocytophil DNA PCR NOT DETECTED Babesia microti DNA PCR NOT DETECTED Borrelia sp DNA (PCR) NOT DETECTED Borrelia miyamotoi (PCR) NOT DETECTED E.chaffeensis DNA (PCR) NOT DETECTED Tick-borne Disease PCR SEE NOTE 12/11/24 12/11/24 12/11/24 06:31 11:28 18:05 Hold Purple Top SEE NOTE Sodium 140 Potassium 4.2 Chloride 108 Carbon Dioxide 26 Anion Gap 10 L BUN 7 L Creatinine 0.70 Estim Creat Clear Calc 196.0 Estimated GFR > 60 POC Glucose 92 105 Random Glucose 98 Calcium 9.6 D Phosphorus 3.7 Magnesium 2.0 Albumin 3.5 A.phagocytophil DNA PCR Babesia microti DNA PCR Borrelia sp DNA (PCR) Borrelia miyamotoi (PCR) E.chaffeensis DNA (PCR) Tick-borne Disease PCR 12/11/24 12/12/24 12/12/24 20:57 00:52 06:07 Hold Purple Top Sodium Potassium Chloride Carbon Dioxide Anion Gap BUN Creatinine Estim Creat Clear Calc Estimated GFR POC Glucose 88 101 101 Random Glucose Calcium Phosphorus Magnesium Albumin A.phagocytophil DNA PCR Babesia microti DNA PCR Borrelia sp DNA (PCR) Borrelia miyamotoi (PCR) E.chaffeensis DNA (PCR) Tick-borne Disease PCR 12/12/24 12/12/24 12/12/24 07:20 11:30 18:12 Hold Purple Top SEE NOTE Sodium 140 Potassium 4.3 Chloride 106 Carbon Dioxide 25 Anion Gap 13 BUN 7 L Creatinine 0.71 Estim Creat Clear Calc 193.2 Estimated GFR > 60 POC Glucose 86 92 Random Glucose 87 Calcium 9.6 Phosphorus 4.4 Magnesium 1.9 Albumin 3.4 L A.phagocytophil DNA PCR Babesia microti DNA PCR Borrelia sp DNA (PCR) Borrelia miyamotoi (PCR) E.chaffeensis DNA (PCR) Tick-borne Disease PCR Imaging Radiology Impressions: ITS Impressions Brain MRI 12/06/24 17:21 IMPRESSION: No acute intracranial hemorrhage. No signal abnormality to suggest encephalopathy Electronically signed by: James Conway MD 12/07/2024 08:43 AM EDT Lumbar Puncture Fluoroscopy 12/10/24 11:25 IMPRESSION: Successful fluoroscopy-guided lumbar puncture. Opening CSF pressure 14 cm of water. Clear CSF 16 mL fluid collected in test tubes and sent to lab. Electronically signed by: Edil Okeefe MD 12/11/2024 09:01 AM EDT Medications Medications Current Medications Acetaminophen (Acetaminophen Supp 650 Mg Supp.Rect) 650 mg WI Q6H PRN PRN Reason: Fever Last Admin: 12/11/24 05:47 Dose: 650 mg Ceftriaxone Sodium (Ceftriaxone Sodium 2 Gm Vial) 2 gm IVPUSH Q12H ARNIE Last Admin: 12/12/24 14:26 Dose: 2 gm Diazepam (Diazepam 10 Mg/2 Ml Cartridge) 5 mg IVPUSH TID [facility] Last Admin: 12/12/24 21:45 Dose: 5 mg Diazepam (Diazepam 10 Mg/2 Ml Cartridge) 5 mg IVPUSH DAILY PRN PRN Reason: diazepam withdrawal Enoxaparin Sodium (Enoxaparin Sodium 40 Mg/0.4 Ml Syringe) 40 mg SUBCUT Q24H [facility] Last Admin: 12/12/24 14:29 Dose: 40 mg Erythromycin (Erythromycin Base 0.5% Oph Oin 1 Gm Tube) 1 cm EYE-BOTH QID [facility] Last Admin: 12/12/24 21:46 Dose: 1 cm Lactated Ringer's (Lr) 1,000 mls @ 125 mls/hr IVCONT .Q8H [facility] Last Admin: 12/12/24 18:30 Dose: 125 mls/hr Nutrition (Parenteral) (Parenteral Nutrition) 2,040 mls @ 85 mls/hr IV .Q24H [facility]; Protocol Stop: 12/13/24 20:59 Last Admin: 12/12/24 21:45 Dose: 85 mls/hr Lactated Ringer's (Lr) 1,000 mls @ 100 mls/hr IVCONT .Q10H [facility] Last Infusion: 12/12/24 22:40 Dose: 100 mls/hr Naloxone HCl (Naloxone Hcl 0.4 Mg/Ml Vial) 0.04 mg IVPUSH Q5M PRN PRN Reason: Excessive sedation or RR < 8 Pharmacy Consult (Consult Rx Parenteral Nutrition Ordering) 1 each MISCELLANE DAILY PRN PRN Reason: Consult order Pharmacy Consult (Consult Rx Vancomycin Dosing) 1 each MISCELLANE DAILY PRN PRN Reason: Consult order Sodium Chloride (0.9 % Sodium Chloride Flush 3 Ml Syringe) 3 ml IVFLUSH QSHIFT ARNIE Last Admin: 12/12/24 21:46 Dose: 3 ml Allergies Allergies Allergy/AdvReac Type Severity Reaction Status Date / Time No Known Allergies Allergy Verified 11/28/24 13:56 Assessment & Plan Assessment & Plan (1) 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 Pt transferred to medical floor from ICU for continued IV benzodiazepines, IV fluids, TPN. 1.Initially Patient was 1st sent from [facility] to the medical floor. Due to national shortage of liquid Ativan, He received midazolam 2 mg IV however patient had no response. He was then given diazepam 10 mg IV and within 30 seconds, he relaxed his muscles, folded his arms, turned over on his side and moved his legs, 1st natural movements observed for several days. American Sign Language Interpreter collaborated with Dr. Lira and after literature review, both agreed that patient required immediate IV diazepam treatment to prevent patient from progressing towards a malignant catatonia; since patient had demonstrated initial response to diazepam he should be continued on diazepam; the literature recommends diazepam IV infusion at 10mg/500ml saline at 1.25mg/hour; diazepam infusion not available per hospital formulary so agreed to diazepam 2.5 mg IV push q.2 hours. 2)Hospitalist team/medical floor nursing staff felt patient should be observed on ICU for this administration and he was transferred to the ICU. In the ICU, Patient treated with IV Diazepam for about 36 hours with limited effect, with rigidity having resolved (and periodically briefly opening his eyes) but other symptoms of catatonia remaining including, not following verbal commands and negativism (resistance of examine his manipulation with equal strength). Team agreed to switch from diazepam to Ativan 2 mg IV q.i.d.. After about 12 hours patient improved some more, responding to noxious stimuli/sternal rub and grimaced and actively pushed examiner's hand away. After about 36 hours give or take, dose increase to Ativan 2 mg IV q4H. Patient able to be transferred back to the medical floor. 3) patient on medical floor receiving Ativan 2 mg IV q4h. He remains in the bed with his eyes closed, not responding to verbal commands but is overall moving all limbs more naturally on his own. Negative his remains. American Sign Language Interpreter met with and discussed case with patient's father and then talked with patient's mother who currently lives in [place]. Collateral from patient's mother, Cliff, ([phone]) ASD; IEP, honors classes, working; spelling [employer]; graduated [employer]; -around 22 years old, seemed more reclusive and pt started changing -lost job September 2022; missing days, not focused; got fired at next job for going too slow -a year ago, less ADL's, not showering, less motivation, mom thinking more than just ASD since not like this at all in [employer] -Refusing to go to appointments. Got him to ED and psych doctor evaluated but was not able to be Sectioned; mom tried other times to get him to doctor, to hospital, but police felt did not meet criteria to section him... -still minimal ADL's; in Fall 2023 started sleeping outside in the park which again, out of character -Jul 2024 making slow movements, like in slow motion, but able to pull out of it; kept sleeping outside in front of her door, peeing on himself or in bottles. -Episodes of staring off and not responding; intermittently would look agitated -Mom sent him to [place] to be with father -no hx of drug/alcohol use -had gone 36 hours w/out sleep, but not hyperactive, withdrawn and either quiet on laptop or making lots of food but not eating -no seizure hx -no hx of medication Impression: After receiving collateral from patient's mother, it seems that patient was demonstrating significant changes in his behavior, very different from his normal way of functioning and his normal expressions of autism. The behavioral changes described sound like prodrome of schizophrenia. Patient's father also observed patient responding to internal stimuli, also very different from his normal expressions. It is difficult to know the etiology of catatonia. People with autism, psychotic disorders, or taking a antipsychotic medications are all at increased risk for catatonia and patient has all 3 risk factors. Again from collateral it sounds very possible that catatonic symptoms started in the community in the week prior to this admission. Here at [facility] with IV benzodiazepines,, patient had observed but minimal improvement with IV diazepam; now on IV Ativan with some additional improvement. Discussed case thoroughly with Dr. Lira who agrees that current treatment plan of IV Ativan as both appropriate and necessary treatment to resolve catatonia and prevent malignant catatonia. American Sign Language Interpreter has discussed the possibility of patient needing ECT treatment if IV benzos do not adequately resolve symptoms; family remains cautious about ECT but seems to understand that this could be necessary. Hospital course: ICU 12/06 Patient remains with same minimal improvement observed when starting diazepam; he is moving on his own a little more naturally though still minimally. Will appeared to be trying to open his eyes sometimes when his name is called. Continues with negativism however otherwise is not rigid. American Sign Language Interpreter met with patient's father and stepmother Debra. Initially family expressed dissatisfaction with treatment and wanted patient transferred to [facility]. Dr. Jiang reached out to [facility] to discuss case and they declined to take patient at this time, not having a bed available and also not being able to provide ECT should patient require it. Patient's family accepted this. American Sign Language Interpreter again spent about an hour providing education on catatonia, its causes and its treatments, including ECT; explained ECT procedure as well. Dr. Lira also provided the family with printed out literature regarding these topics, including ECT. After discussion, patient's family seemed to agree with current treatment plan of continuing with benzodiazepines. Since patient had only a minimal response to IV diazepam, decision was made to switch to IV Ativan to see if this would be more effective; also discussed with family who agreed with this plan. American Sign Language Interpreter again offered to talk with family member who is a neurologist and gave them pattern chart writer's contact information to pass along. 12/07 some change in presentation as patient now responsive to noxious stimuli/chest rub, grimacing and pushing examiner's hand away. American Sign Language Interpreter and Dr. Lira agree this is improvement and evidence that Ativan is helping (progression: rigidity and no response to noxious stimuli -- progressed to absence of rigidity but still no response to noxious stimuli--progressed to now, pt with active response to noxious stimuli). -Literature reviewed and after team discussion agreed to increase IV Ativan to 2 mg q.4h -brain MRI unremarkable -Discussed with Dr. Jiang who felt patient could be safely transferred back to medical floor out of ICU; family informed Medical floor: 12/08 patient remains catatonic, not opening his eyes, not responding to any verbal interactions; remains with negativism; however is moving increasingly or naturally on his own. Discussed with dr. Ernandez. -continue with Ativan 2 mg q4h for now 12/09 Last night/early AM pt spiked fever 105, tachy, tachypneic. Treated with abx, cooling blanket, rectal acetaminophen; CXR negative. Temp came down and pt only mildly tachy; RR 18. Also...This morning, pt woke up, talked with Dr. Ernandez and asked for a sandwich; a little later with nurse, he knew his name, and that he was at [facility] [place] [facility]. Later in day, on approach, pt sleeping, sometimes yawning; did not wake up to speaking his name; pattern chart writer did not do sternal rub -tried to test for rigidity but not able to assess since pt's remains w/ negativism (catatonic symptom of resisting examiner w/ equal force) but pt appears to be moving around easily enough on his own. -did not really at risk for NMS since pt only on Diazepam T:99.4 (on cooling blanket) BP:112/68 O2 96% HR 98 RR: 18 lips appear swollen UA unremarkable CXR unremarkable negative covid/rsv/flu American Sign Language Interpreter discussed case with Dr. Lira; pattern chart writer Discussed case with Dr. Ernandez regarding blood cultures/LP; at this time Dr. Ernandez would like to continue monitoring but advance to LP if patient does not improve. Hospital ran out of Ativan; will switch back to diazepam Impression: Despite the fact that patient spiked a fever and was tachy and tachypneic, the fact that he woke up, was talking, interacting oriented to self and place was very encouraging. Ativan seems to have been more effective than diazepam and remains preferred, however diazepam has had some positive effect. Patient being worked up for infectious etiology, though he does not appear ill looking. It is possible that fever, increased heart rate respiratory rate was a brief crossing into a malignant catatonia; will continue with current treatment plan; ECT remains consider most effective treatment however need court order 12/11 LP so far mostly negative with a few parameters still pending; Afebrile and vitals WNL Patient remains with eyes closed but is moving his body and head around on his own; sometimes role in his head around and around. Still does not respond to verbal stimuli. Waxy flexibility noted; initially only minimal negativeism however this increased with examiners manipulations. Has not open his eyes or talked since Friday 12/08 (per father patient also talked with his mother on the phone, talked with his grandmother). -discussed with pharmacist and some additional Ativan has been procured though in a very limited supply; will restart Ativan IV -of note diazepam infusion is not possible per pharmacy -would also consider memantine, though must be taken p.o. Impression: Patient has certainly improved with IV benzodiazepines, lorazepam seeming to be the most effective. However he remains with severe catatonia. Although he open his eyes and spoke briefly, he has not done so for 3 days and for the past 3 days he has remained with eyes closed, nonverbal, not responding to verbal cues, not eating, not drinking. Thus far, workup for infection has been unremarkable, with only a few LP labs still pending. Because no infectious process can be identified patient is episode of fever, tachycardia and tachypnea remain concerning for possible brief transitioned into malignant catatonia. Currently patient is afebrile and vitals WNL however the risks increase the longer catatonia persists and ECT remains the most viable treatment option -court scheduled for today 12/12 ECT today. Discussed case in detail with Dr. Lira who agreed with proceeding to ECT for following reasons: 1. He remains with Severe catatonia; he is not eating, drinking, talking or opening his eyes, responding to verbal stimuli or getting out of bed; he cannot communicate or receive information; he continues to need IV fluids, nutrition without which he would go into organ failure and . 2. This past weekend, he became febrile with a temperature spiking to 105 degrees; he was tachycardic to 133, tachypneic to 22 RR? temperature lowered but he remained febrile for the next day...... After thorough workup which included an LP, chest x-ray, UA, RSV/COVID/flu? no infectious process identified, other than possible sinusitis. Was this episode of autonomic dysregulation a brief crossover into malignant catatonia? Concern for patients condition to turn malignant increases the longer catatonia persists. 3. The longer a person remains catatonic the harder it becomes to resolve it. Prolonged catatonia correlates with higher risk of serious medical complications, including ?and include the risks associated with continuous IV, Sultana, and being bed bound. A person can rapidly deteriorate despite being on benzodiaepines. 4. Literature recommends a Switch to ECT when: Lorazepam (Ativan) fails after 3?5 days of adequate dosing (e.g., 6?12 mg/day) to prevent poor outcome (Electroconvulsive therapy in catatonic patients: Efficacy and predictors of response (2015)) Will continue with ECT WMF Will treat with Diazepam 5mg IV TID to treat for Benzo withdrawal and to treat catatonia; as pt improves, will taper benzo Plan: ECT MWF (Court ordered; pt on Section ) ECT #1 on 12/12 ECT #2 on 12/14 Diazepam 5mg IV TID (hold night before ECT) Diazepam 5mg daily prn for benzo withdrawal (Benzo use: When available, Ativan IV 2 mg Q4h; will resume once supply procured; (literature reports some cases have required up to 30 mg daily; If no Ativan, then diazepam IV 2.5 mg q.2h; helpful but with limited effect) If catatonia persists despite benzodiazepine being treatment, next phase of treatment is ECT Will try to reach out to mother for additional information Neurology consult placed Brain MRI unremarkable Hospitalist note: Fever/tachycardia/tachypnea overnight. CXR negative, blood cultures pending, UA negative. Possible concern of NMS: however no rigidity, has not been on Psychotropic, mental status has not changed. check CPK, continue hydration, check flu/rsv/covid swab. To continue Benzo (IV ativan or valium)_ as directed by Psych presently on 2 mg q 4 hours, monitor for respiratory effect. Continue PPN for nutritional support and monitor electrolytes and divalents closely Other treatment to be directed by Psych DVT prophylaxis-Lovenox Full code Patient requires inpatient stay for parental nutrition in the setting of severe catatonia and will also require a IV benzo challenge with cardiac monitoring Patient educated on: diagnosis and ECT Informed Consent: does not understand Reason for continued inpatient stay Substantial Risk for: inability to function Time Spent With Patient Time: Total time managing care of this patient today ____ minutes.
[2024-12-12 23:51] LABS: Glucose, Whole Blood 98 mg/dL (60-115)
[2024-12-13] MEDS: cefTRIAXone sodium 2 GM VIAL IVPUSH ×2 (02:13→14:37)
[2024-12-13 02:54] VITALS: BP 116/52; PULSE 64; RESP 18; TEMP 37.1; O2SAT 98
[2024-12-13 07:03] LABS: Glucose, Whole Blood 101 mg/dL (60-115)
[2024-12-13 07:44] LABS: Albumin Level 3.5 g/dL (3.5-5.0); Anion Gap 12 (12-20); Blood Urea Nitrogen 8 mg/dL (9-16); Calcium 9.7 mg/dL (8.4-10.2); Carbon Dioxide 27 mmol/L (22-29); Chloride 105 mmol/L (96-108); Estimated Glomerular Filt Rate > 60; Glucose Random 92 mg/dL (60-115); Magnesium 1.9 mg/dL (1.6-2.6); Phosphorus 4.2 mg/dL (2.7-4.5); Sodium 140 mmol/L (135-145)
[2024-12-13 08:00] VITALS: BP 105/55; PULSE 66; RESP 16; TEMP 36.6; O2SAT 99
[2024-12-13] MEDS: diazePAM 10 MG/2 ML CARTRIDGE 5 MG IVPUSH (08:34)
[2024-12-13] MEDS: 0.9 % Sodium Chloride Flush 3 ML SYRINGE IVFLUSH ×3 (08:34→22:55)
[2024-12-13] MEDS: Erythromycin Base 0.5% Oph Oin 1 GM TUBE 1 CM EYE-BOTH ×2 (08:35→22:55)
--- NOTE | 2024-12-13 10:08 | MHC.CLN ---
F/U CONTINUEs WITH PPN REVIEWED LABS-UNREMARKABLE DISCUSSED WITH PHARMACY CONTINUE PPN AT MAX GOAL RATE 85ML/HR WITH 96G LIPIDS PROVIDES 2000 TOTAL KCALS (23KCALS/KG), 204G DEXTROSE, 87G PROTEIN (1.0G/KG) REPLETE LYTES NEEDED
[2024-12-13 11:42] LABS: Glucose, Whole Blood 100 mg/dL (60-115)
[2024-12-13 12:00] VITALS: BP 110/62; PULSE 75; RESP 16; TEMP 36.7; O2SAT 98
--- NOTE | 2024-12-13 13:32 | PC.NURSE ---
pt sitting up in the bed turning his head from side to side ,nonverbal . Family : father and female indenting herself as pt's aunt at the bedside. pt moved himself up in the bed , turned to the right side , placed his head pressing on the bed rail . RN redirected and repositioned patient to the middle of the bed . Pt nonverbal ,eyes closed. DR Canela was notified .
--- NOTE | 2024-12-13 13:56 | MHC.CM.PN ---
Per Patient Experience Extrusion Die Template Maker/Elly, Patient's father has financial questions, including how to apply for SS disability for Patient. Per CM's request, [facility], met with Patient and his Father at bedside and informed Father that [facility] does not assist with filing for Disability, but she assisted with instructions on how to begin the process (suggested applying for Medicare/Disability at the same time). Stefani was informed that Patient's Aunt (His Mother's Sister in [place])Althea Cruzflorencia @ [phone] is willing to be involved with Patient, including becoming Guardian, if needed. CM will continue to follow.
--- NOTE | 2024-12-13 14:06 | PC.NURSE ---
pt sitting up in the bed, eyes wide open , still nonverbal , pt controlled rapid head movement ,
--- NOTE | 2024-12-13 14:15 | P.PNPSI_ITS ---
Subjective Subjective Date of Service: 12/13/24 Reason For Visit: Catatonia need for parental nutrition Interim History: Met with patient; discussed with team; discussed with colleagues; discussed with family Patient open his eyes, started answering questions by nodding his head and remained so throughout the day. Hand Sign Writer explained patient's condition and treatment though doubtful patient understood much of it. Hand Sign Writer gave him 2 doses of IV Ativan 2 mg which seemed to help because Later on job specification writer was informed the patient was again talking, eating and drinking. ECT tomorrow but if patient remains much improved, maybe able to return to the psychiatric unit Mental Status Exam Mental Status Exam Narrative: Patient opening eyes, nodding yes or no appropriately to questions; no rigidity, no waxy flexibility, no resistance to examiners manipulations. Diagnostics Vital Signs (24Hr): Vital Signs - 24 hr 12/12/24 15:33 12/12/24 19:53 12/12/24 23:33 Temperature 98.3 F 98.7 F 98.4 F Pulse Rate 76 83 81 Respiratory Rate 20 18 18 Blood Pressure 103/61 116/68 111/55 L Pulse Oximetry 98 99 97 Oxygen Delivery Method Room Air Room Air 12/13/24 02:54 12/13/24 08:00 12/13/24 12:00 Temperature 98.7 F 97.9 F 98.0 F Pulse Rate 64 66 75 Respiratory Rate 18 16 16 Blood Pressure 116/52 L 105/55 L 110/62 Pulse Oximetry 98 99 98 Oxygen Delivery Method Room Air Room Air Room Air BMI result Body Mass Index 28.9 Labs 12/10/24 08:23 12/14/24 07:00 Labs: Laboratory Results - last 48 hr 12/09/24 12/11/24 12/11/24 19:52 18:05 20:57 Hold Purple Top Sodium Potassium Chloride Carbon Dioxide Anion Gap BUN Creatinine Estim Creat Clear Calc Estimated GFR POC Glucose 105 88 Random Glucose Calcium Phosphorus Magnesium Albumin A.phagocytophil DNA PCR NOT DETECTED Babesia microti DNA PCR NOT DETECTED Borrelia sp DNA (PCR) NOT DETECTED Borrelia miyamotoi (PCR) NOT DETECTED E.chaffeensis DNA (PCR) NOT DETECTED Tick-borne Disease PCR SEE NOTE 12/12/24 12/12/24 12/12/24 00:52 06:07 07:20 Hold Purple Top SEE NOTE Sodium 140 Potassium 4.3 Chloride 106 Carbon Dioxide 25 Anion Gap 13 BUN 7 L Creatinine 0.71 Estim Creat Clear Calc 193.2 Estimated GFR > 60 POC Glucose 101 101 Random Glucose 87 Calcium 9.6 Phosphorus 4.4 Magnesium 1.9 Albumin 3.4 L A.phagocytophil DNA PCR Babesia microti DNA PCR Borrelia sp DNA (PCR) Borrelia miyamotoi (PCR) E.chaffeensis DNA (PCR) Tick-borne Disease PCR 12/12/24 12/12/24 12/12/24 11:30 18:12 23:46 Hold Purple Top Sodium Potassium Chloride Carbon Dioxide Anion Gap BUN Creatinine Estim Creat Clear Calc Estimated GFR POC Glucose 86 92 98 Random Glucose Calcium Phosphorus Magnesium Albumin A.phagocytophil DNA PCR Babesia microti DNA PCR Borrelia sp DNA (PCR) Borrelia miyamotoi (PCR) E.chaffeensis DNA (PCR) Tick-borne Disease PCR 12/13/24 12/13/24 12/13/24 06:39 06:59 11:38 Hold Purple Top SEE NOTE Sodium 140 Potassium 4.0 Chloride 105 Carbon Dioxide 27 Anion Gap 12 BUN 8 L Creatinine 0.70 Estim Creat Clear Calc 196.0 Estimated GFR > 60 POC Glucose 101 100 Random Glucose 92 Calcium 9.7 Phosphorus 4.2 Magnesium 1.9 Albumin 3.5 A.phagocytophil DNA PCR Babesia microti DNA PCR Borrelia sp DNA (PCR) Borrelia miyamotoi (PCR) E.chaffeensis DNA (PCR) Tick-borne Disease PCR Imaging Radiology Impressions: ITS Impressions Brain MRI 12/06/24 17:21 IMPRESSION: No acute intracranial hemorrhage. No signal abnormality to suggest encephalopathy Electronically signed by: James Conway MD 12/07/2024 08:43 AM EDT RP Lumbar Puncture Fluoroscopy 12/10/24 11:25 IMPRESSION: Successful fluoroscopy-guided lumbar puncture. Opening CSF pressure 14 cm of water. Clear CSF 16 mL fluid collected in test tubes and sent to lab. Electronically signed by: Edil Okeefe MD 12/11/2024 09:01 AM EDT RP Medications Medications Current Medications Acetaminophen (Acetaminophen Supp 650 Mg Supp.Rect) 650 mg WV Q6H PRN PRN Reason: Fever Last Admin: 12/11/24 05:47 Dose: 650 mg Ceftriaxone Sodium (Ceftriaxone Sodium 2 Gm Vial) 2 gm IVPUSH Q12H [facility] Last Admin: 12/13/24 02:13 Dose: 2 gm Diazepam (Diazepam 10 Mg/2 Ml Cartridge) 5 mg IVPUSH TID [facility] Last Admin: 12/13/24 08:34 Dose: 5 mg Diazepam (Diazepam 10 Mg/2 Ml Cartridge) 5 mg IVPUSH DAILY PRN PRN Reason: diazepam withdrawal Enoxaparin Sodium (Enoxaparin Sodium 40 Mg/0.4 Ml Syringe) 40 mg SUBCUT Q24H [facility] Last Admin: 12/12/24 14:29 Dose: 40 mg Erythromycin (Erythromycin Base 0.5% Oph Oin 1 Gm Tube) 1 cm EYE-BOTH QID [facility] Last Admin: 12/13/24 08:35 Dose: 1 cm Nutrition (Parenteral) (Parenteral Nutrition) 2,040 mls @ 85 mls/hr IV .Q24H [facility]; Protocol Stop: 12/13/24 20:59 Last Admin: 12/12/24 21:45 Dose: 85 mls/hr Nutrition (Parenteral) (Parenteral Nutrition) 2,040 mls @ 85 mls/hr IV .Q24H [facility]; Protocol Stop: 12/14/24 20:59 Naloxone HCl (Naloxone Hcl 0.4 Mg/Ml Vial) 0.04 mg IVPUSH Q5M PRN PRN Reason: Excessive sedation or RR < 8 Pharmacy Consult (Consult Rx Parenteral Nutrition Ordering) 1 each MISCELLANE DAILY PRN PRN Reason: Consult order Pharmacy Consult (Consult Rx Vancomycin Dosing) 1 each MISCELLANE DAILY PRN PRN Reason: Consult order Sodium Chloride (0.9 % Sodium Chloride Flush 3 Ml Syringe) 3 ml IVFLUSH QSHIFT [facility] Last Admin: 12/13/24 08:34 Dose: 3 ml Allergies Allergies Allergy/AdvReac Type Severity Reaction Status Date / Time No Known Allergies Allergy Verified 11/28/24 13:56 Assessment & Plan Assessment & Plan (1) 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 Pt transferred to medical floor from ICU for continued IV benzodiazepines, IV fluids, TPN. 1.Initially Patient was 1st sent from M3 to the medical floor. Due to national shortage of liquid Ativan, He received midazolam 2 mg IV however patient had no response. He was then given diazepam 10 mg IV and within 30 seconds, he relaxed his muscles, folded his arms, turned over on his side and moved his legs, 1st natural movements observed for several days. Hand Sign Writer collaborated with Dr. Lira and after literature review, both agreed that patient required immediate IV diazepam treatment to prevent patient from progressing towards a malignant catatonia; since patient had demonstrated initial response to diazepam he should be continued on diazepam; the literature recommends diazepam IV infusion at 10mg/500ml saline at 1.25mg/hour; diazepam infusion not available per hospital formulary so agreed to diazepam 2.5 mg IV push q.2 hours. 2)Hospitalist team/medical floor nursing staff felt patient should be observed on ICU for this administration and he was transferred to the ICU. In the ICU, Patient treated with IV Diazepam for about 36 hours with limited effect, with rigidity having resolved (and periodically briefly opening his eyes) but other symptoms of catatonia remaining including, not following verbal commands and negativism (resistance of examine his manipulation with equal strength). Team agreed to switch from diazepam to Ativan 2 mg IV q.i.d.. After about 12 hours patient improved some more, responding to noxious stimuli/sternal rub and grimaced and actively pushed examiner's hand away. After about 36 hours give or take, dose increase to Ativan 2 mg IV q4H. Patient able to be transferred back to the medical floor. 3) patient on medical floor receiving Ativan 2 mg IV q4h. He remains in the bed with his eyes closed, not responding to verbal commands but is overall moving all limbs more naturally on his own. Negative his remains. Hand Sign Writer met with and discussed case with patient's father and then talked with patient's mother who currently lives in [place]. Collateral from patient's mother, Cliff, ([phone]) ASD; IEP, honors classes, working; spelling [employer]; graduated [employer]; -around 22 years old, seemed more reclusive and pt started changing -lost job September 2022; missing days, not focused; got fired at next job for going too slow -a year ago, less ADL's, not showering, less motivation, mom thinking more than just ASD since not like this at all in [employer] -Refusing to go to appointments. Got him to ED and psych doctor evaluated but was not able to be Sectioned; mom tried other times to get him to doctor, to hospital, but police felt did not meet criteria to section him... -still minimal ADL's; in Fall 2023 started sleeping outside in the park which again, out of character -Jul 2024 making slow movements, like in slow motion, but able to pull out of it; kept sleeping outside in front of her door, peeing on himself or in bottles. -Episodes of staring off and not responding; intermittently would look agitated -Mom sent him to [place] to be with father -no hx of drug/alcohol use -had gone 36 hours w/out sleep, but not hyperactive, withdrawn and either quiet on laptop or making lots of food but not eating -no seizure hx -no hx of medication Impression: After receiving collateral from patient's mother, it seems that patient was demonstrating significant changes in his behavior, very different from his normal way of functioning and his normal expressions of autism. The behavioral changes described sound like prodrome of schizophrenia. Patient's father also observed patient responding to internal stimuli, also very different from his normal expressions. It is difficult to know the etiology of catatonia. People with autism, psychotic disorders, or taking a antipsychotic medications are all at increased risk for catatonia and patient has all 3 risk factors. Again from collateral it sounds very possible that catatonic symptoms started in the community in the week prior to this admission. Here at [facility] with IV benzodiazepines,, patient had observed but minimal improvement with IV diazepam; now on IV Ativan with some additional improvement. Discussed case thoroughly with Dr. Lira who agrees that current treatment plan of IV Ativan as both appropriate and necessary treatment to resolve catatonia and prevent malignant catatonia. Hand Sign Writer has discussed the possibility of patient needing ECT treatment if IV benzos do not adequately resolve symptoms; family remains cautious about ECT but seems to understand that this could be necessary. Hospital course: ICU 12/06 Patient remains with same minimal improvement observed when starting diazepam; he is moving on his own a little more naturally though still minimally. Will appeared to be trying to open his eyes sometimes when his name is called. Continues with negativism however otherwise is not rigid. Hand Sign Writer met with patient's father and stepmother Debra. Initially family expressed dissatisfaction with treatment and wanted patient transferred to [facility]. Dr. Jiang reached out to [facility] to discuss case and they declined to take patient at this time, not having a bed available and also not being able to provide ECT should patient require it. Patient's family accepted this. Hand Sign Writer again spent about an hour providing education on catatonia, its causes and its treatments, including ECT; explained ECT procedure as well. Dr. Lira also provided the family with printed out literature regarding these topics, including ECT. After discussion, patient's family seemed to agree with current treatment plan of continuing with benzodiazepines. Since patient had only a minimal response to IV diazepam, decision was made to switch to IV Ativan to see if this would be more effective; also discussed with family who agreed with this plan. Hand Sign Writer again offered to talk with family member who is a neurologist and gave them job specification writer's contact information to pass along. 12/07 some change in presentation as patient now responsive to noxious stimuli/chest rub, grimacing and pushing examiner's hand away. Hand Sign Writer and Dr. Lira agree this is improvement and evidence that Ativan is helping (progression: rigidity and no response to noxious stimuli -- progressed to absence of rigidity but still no response to noxious stimuli--progressed to now, pt with active response to noxious stimuli). -Literature reviewed and after team discussion agreed to increase IV Ativan to 2 mg q.4h -brain MRI unremarkable -Discussed with Dr. Jiang who felt patient could be safely transferred back to medical floor out of ICU; family informed Medical floor: 12/08 patient remains catatonic, not opening his eyes, not responding to any verbal interactions; remains with negativism; however is moving increasingly or naturally on his own. Discussed with dr. Ernandez. -continue with Ativan 2 mg q4h for now 12/09 Last night/early AM pt spiked fever 105, tachy, tachypneic. Treated with abx, cooling blanket, rectal acetaminophen; CXR negative. Temp came down and pt only mildly tachy; RR 18. Also...This morning, pt woke up, talked with Dr. Ernandez and asked for a sandwich; a little later with nurse, he knew his name, and that he was [facility]. Later in day, on approach, pt sleeping, sometimes yawning; did not wake up to speaking his name; job specification writer did not do sternal rub -tried to test for rigidity but not able to assess since pt's remains w/ negativism (catatonic symptom of resisting examiner w/ equal force) but pt appears to be moving around easily enough on his own. -did not really at risk for NMS since pt only on Diazepam T:99.4 (on cooling blanket) BP:112/68 O2 96% HR 98 RR: 18 lips appear swollen UA unremarkable CXR unremarkable negative covid/rsv/flu Hand Sign Writer discussed case with Dr. Lira; job specification writer Discussed case with Dr. Ernandez regarding blood cultures/LP; at this time Dr. Ernandez would like to continue monitoring but advance to LP if patient does not improve. Hospital ran out of Ativan; will switch back to diazepam Impression: Despite the fact that patient spiked a fever and was tachy and tachypneic, the fact that he woke up, was talking, interacting oriented to self and place was very encouraging. Ativan seems to have been more effective than diazepam and remains preferred, however diazepam has had some positive effect. Patient being worked up for infectious etiology, though he does not appear ill looking. It is possible that fever, increased heart rate respiratory rate was a brief crossing into a malignant catatonia; will continue with current treatment plan; ECT remains consider most effective treatment however need court order 12/11 LP so far mostly negative with a few parameters still pending; Afebrile and vitals WNL Patient remains with eyes closed but is moving his body and head around on his own; sometimes role in his head around and around. Still does not respond to verbal stimuli. Waxy flexibility noted; initially only minimal negativeism however this increased with examiners manipulations. Has not open his eyes or talked since Friday 12/08 (per father patient also talked with his mother on the phone, talked with his grandmother). -discussed with pharmacist and some additional Ativan has been procured though in a very limited supply; will restart Ativan IV -of note diazepam infusion is not possible per pharmacy -would also consider memantine, though must be taken p.o. Impression: Patient has certainly improved with IV benzodiazepines, lorazepam seeming to be the most effective. However he remains with severe catatonia. Although he open his eyes and spoke briefly, he has not done so for 3 days and for the past 3 days he has remained with eyes closed, nonverbal, not responding to verbal cues, not eating, not drinking. Thus far, workup for infection has been unremarkable, with only a few LP labs still pending. Because no infectious process can be identified patient is episode of fever, tachycardia and tachypnea remain concerning for possible brief transitioned into malignant catatonia. Currently patient is afebrile and vitals WNL however the risks increase the longer catatonia persists and ECT remains the most viable treatment option -court scheduled for today 12/12 ECT today. Discussed case in detail with Dr. Lira who agreed with proceeding to ECT for following reasons: 1. He remains with Severe catatonia; he is not eating, drinking, talking or opening his eyes, responding to verbal stimuli or getting out of bed; he cannot communicate or receive information; he continues to need IV fluids, nutrition without which he would go into organ failure and . 2. This past weekend, he became febrile with a temperature spiking to 105 degrees; he was tachycardic to 133, tachypneic to 22 RR? temperature lowered but he remained febrile for the next day...... After thorough workup which included an LP, chest x-ray, UA, RSV/COVID/flu? no infectious process identified, other than possible sinusitis. Was this episode of autonomic dysregulation a brief crossover into malignant catatonia? Concern for patients condition to turn malignant increases the longer catatonia persists. 3. The longer a person remains catatonic the harder it becomes to resolve it. Prolonged catatonia correlates with higher risk of serious medical complications, including ?and include the risks associated with continuous IV, Sultana, and being bed bound. A person can rapidly deteriorate despite being on benzodiaepines. 4. Literature recommends a Switch to ECT when: Lorazepam (Ativan) fails after 3?5 days of adequate dosing (e.g., 6?12 mg/day) to prevent poor outcome (Electroconvulsive therapy in catatonic patients: Efficacy and predictors of response (2015)) Will continue with ECT WMF Will treat with Diazepam 5mg IV TID to treat for Benzo withdrawal and to treat catatonia; as pt improves, will taper benzo 12/13 Patient open his eyes, started answering questions by nodding his head and remained so throughout the day. Hand Sign Writer explained patient's condition and treatment though doubtful patient understood much of it. Hand Sign Writer gave him 2 doses of IV Ativan 2 mg which seemed to help because Later on job specification writer was informed the patient was again talking, eating and drinking. ECT tomorrow but if patient remains much improved, maybe able to return to the psychiatric unit -discussed case with Dr. Serrano and Dr. Lira and will continue benzos both to help make sure catatonia does not return and to avoid benzo withdrawal Plan: ECT MWF (Court ordered; pt on Section ) ECT #1 on 12/12 ECT #2 pending 12/14 Diazepam 5mg IV TID (hold night before ECT) Diazepam 5mg daily prn for benzo withdrawal (Benzo use: When available, Ativan IV 2 mg Q4h; will resume once supply procured; (literature reports some cases have required up to 30 mg daily; If no Ativan, then diazepam IV 2.5 mg q.2h; helpful but with limited effect) Brain MRI unremarkable Hospitalist note: Fever/tachycardia/tachypnea overnight. CXR negative, blood cultures pending, UA negative. Possible concern of NMS: however no rigidity, has not been on Psychotropic, mental status has not changed. check CPK, continue hydration, check flu/rsv/covid swab. To continue Benzo (IV ativan or valium)_ as directed by Psych presently on 2 mg q 4 hours, monitor for respiratory effect. Continue PPN for nutritional support and monitor electrolytes and divalents closely Other treatment to be directed by Psych DVT prophylaxis-Lovenox Full code Patient requires inpatient stay for parental nutrition in the setting of severe catatonia and will also require a IV benzo challenge with cardiac monitoring Patient educated on: diagnosis, medication risk/benefits and ECT Informed Consent: does not understand Reason for continued inpatient stay Substantial Risk for: inability to function Time Spent With Patient Time: Total time managing care of this patient today ____ minutes.
[2024-12-13] MEDS: Enoxaparin Sodium 40 MG/0.4 ML SYRINGE SUBCUT (14:37)
[2024-12-13] MEDS: LORazepam 2 MG/ML VIAL IV (15:01)
[2024-12-13 16:00] VITALS: BP 107/63; PULSE 78; RESP 16; TEMP 36.5; O2SAT 97
--- NOTE | 2024-12-13 16:19 | PC.NURSE ---
Nursing dysphasia screening done by RN and pt passed , DR Canela was notified .Initially pt communicated with nurses with few words as: pizza, meat, hello. Next he was speaking in short sentences . Now he is asking if he can get up from the bed . Tolerating liquids PO no s/s of dysphasia. Educated on safety , high risk for fall
--- NOTE | 2024-12-13 17:53 | PC.NURSE ---
pt attempted to get up from the bed multiple time , OOB to recliner with the walker , safety belt and 2 assist , slow weak gait . Pt OOB in recliner tolerated regular diet ,no s/s of aspiration , appropriately communicates with the nursing staff.
[2024-12-13] MEDS: LORazepam 2 MG/ML VIAL IVPUSH (17:59)
--- NOTE | 2024-12-13 18:04 | P.PNIM_ITS ---
Subjective Subjective Date of Service: 12/13/24 Interval History: catatonia Review of Systems patient seems improving sitting ,says- wants to eat moves all ext. Physical Exam 2 Vital Signs: Vital Signs: Last Vital Signs Temp 97.7 F 12/13/24 16:00 Pulse 78 12/13/24 16:00 Resp 16 12/13/24 16:00 BP 107/63 12/13/24 16:00 Pulse Ox 97 12/13/24 16:00 O2 Del Method Room Air 12/13/24 16:00 O2 Flow Rate 2 12/12/24 13:15 BMI result Body Mass Index 28.9 General: awake ,wants to eat Resp: CTA bilateral CVS: S1,S2,RRR GI: +BS, NT, no distention Skin: No rash Neuro: motor grossly intact Psych: appropriate affect Objective Data Active Medications Acetaminophen (Acetaminophen Supp 650 Mg Supp.Rect) 650 mg WV Q6H PRN PRN Reason: Fever Last Admin: 12/11/24 05:47 Dose: 650 mg Documented By: JAYA Ceftriaxone Sodium (Ceftriaxone Sodium 2 Gm Vial) 2 gm IVPUSH Q12H [facility] Last Admin: 12/13/24 14:37 Dose: 2 gm Documented By: YESSY Diazepam (Diazepam 10 Mg/2 Ml Cartridge) 5 mg IVPUSH TID [facility] Last Admin: 12/13/24 08:34 Dose: 5 mg Documented By: YESSY Diazepam (Diazepam 10 Mg/2 Ml Cartridge) 5 mg IVPUSH DAILY PRN PRN Reason: diazepam withdrawal Enoxaparin Sodium (Enoxaparin Sodium 40 Mg/0.4 Ml Syringe) 40 mg SUBCUT Q24H [facility] Last Admin: 12/13/24 14:37 Dose: 40 mg Documented By: YESSY Erythromycin (Erythromycin Base 0.5% Oph Oin 1 Gm Tube) 1 cm EYE-BOTH QID [facility] Last Admin: 12/13/24 17:28 Dose: Not Given Documented By: YESSY Non-Admin Reason: Patient Refused Nutrition (Parenteral) (Parenteral Nutrition) 2,040 mls @ 85 mls/hr IV .Q24H [facility]; Protocol Stop: 12/13/24 20:59 Last Admin: 12/12/24 21:45 Dose: 85 mls/hr Documented By: ANTOINC Nutrition (Parenteral) (Parenteral Nutrition) 2,040 mls @ 85 mls/hr IV .Q24H [facility]; Protocol Stop: 12/14/24 20:59 Naloxone HCl (Naloxone Hcl 0.4 Mg/Ml Vial) 0.04 mg IVPUSH Q5M PRN PRN Reason: Excessive sedation or RR < 8 Pharmacy Consult (Consult Rx Parenteral Nutrition Ordering) 1 each MISCELLANE DAILY PRN PRN Reason: Consult order Pharmacy Consult (Consult Rx Vancomycin Dosing) 1 each MISCELLANE DAILY PRN PRN Reason: Consult order Sodium Chloride (0.9 % Sodium Chloride Flush 3 Ml Syringe) 3 ml IVFLUSH QSHIFT [facility] Last Admin: 12/13/24 15:55 Dose: 3 ml Documented By: YESSY Labs 12/10/24 08:23 12/13/24 06:39 Labs: Laboratory Results - last 24 hr 12/12/24 12/12/24 12/13/24 18:12 23:46 06:39 Hold Purple Top SEE NOTE Anion Gap 12 Estim Creat Clear Calc 196.0 Estimated GFR > 60 POC Glucose 92 98 Random Glucose 92 Calcium 9.7 Phosphorus 4.2 Magnesium 1.9 Albumin 3.5 12/13/24 12/13/24 06:59 11:38 Hold Purple Top Anion Gap Estim Creat Clear Calc Estimated GFR POC Glucose 101 100 Random Glucose Calcium Phosphorus Magnesium Albumin Microbiology Microbiology Results: Microbiology 12/10/24 11:44 Gram Stain - Final Cerebrospinal Fluid CSF Examination - Final Fluid Description - Final CSF Culture - Final No growth after 3 days. Assessment and Plan (1) Psychiatric illness: Status: Acute (2) Schizophrenia: Status: Acute (3) Catatonia: Status: Acute Plan 24-year-old male with question of schizophrenia and autism spectrum disorder but no other PMH known admitted to adult Psychiatry with consult placed hospitalist service due to severe catatonia not eating for days and no response to IM diazepam. He was admitted to the medical floor and tehn transfer to the ICU for high doses of benzos and frequent dozing and be closely monitoring, he was transfered out of ICU on 12/07, He remains unresponsive, lethargic, vitals otherwise stable. Had temp of 105 on 12/08. FUO, SIRS (fever of up to 105, tachycardia, tachpnic, WBC 15). CXR negative, blood cultures pending, UA negative. Flu/RSV/Covid negative. Possible concern of NMS: however no rigidity, has not been on Psychotropic, mental status has not changed. CPK 79. LP done : wbc :0 ,rbc:25 ,glucose :64,csf protein :20.3 meningitis and encephalitis panel neg except csf vdrl and lyme testing pending CSF culture preliminary negative Blood culture negative at 48 hours Patient was seen by infectious disease: He may possibly have left sinus infection with blockage from cyst causing fever. Continue ceftriaxone,will switch to po antibiotics . Off acyclovir and vancomycin. s/p ect (12/13/23)-seems improving-awake, or eating, moving all extremities To continue Benzo (IV ativan or valium)-as directed by Psych, monitor for respiratory effect. Continue PPN for nutritional support and monitor electrolytes and divalents closely Other treatment to be directed by Psych. DVT prophylaxis-Lovenox Full code Ongoing need inpatient stay for parental nutrition in the setting of severe catatonia and will also require a IV benzo challenge with cardiac monitoring Quality Stroke Does the patient have a stroke diagnosis?: No VTE Prior VTE?: No VTE Risk Level:: Medical - moderate - high VTE Device Contraindication: Treatment Not Indicated VTE Drug Contraindication: N/A - Med Ordered
--- NOTE | 2024-12-13 18:35 | PC.NURSE ---
Pt sitting in the recliner and operating his own computer , cooperative ,converses appropriately
[2024-12-13 19:59] VITALS: BP 120/64; PULSE 101; RESP 18; TEMP 36.7; O2SAT 99
[2024-12-13] MEDS: Amoxicillin/Potassium Clav 875 MG TABLET PO (22:54)
[2024-12-13 23:44] VITALS: BP 122/72; PULSE 101; RESP 18; TEMP 36.7; O2SAT 98
[2024-12-14] VITALS (12 sets, daily range): BP systolic 97–122; BP diastolic 52–74; PULSE 74–103; RESP 17–22; TEMP 36.1–37.2; O2SAT 18–99
[2024-12-14 00:01] LABS: Glucose, Whole Blood 88 mg/dL (60-115)
[2024-12-14 05:37] LABS: Glucose, Whole Blood 102 mg/dL (60-115)
[2024-12-14] MEDS: 0.9 % Sodium Chloride Flush 3 ML SYRINGE IVFLUSH (07:45)
[2024-12-14] MEDS: Amoxicillin/Potassium Clav 875 MG TABLET PO (07:45)
[2024-12-14 07:50] LABS: Albumin Level 3.8 g/dL (3.5-5.0); Anion Gap 11 (12-20); Blood Urea Nitrogen 11 mg/dL (9-16); Calcium 9.9 mg/dL (8.4-10.2); Carbon Dioxide 27 mmol/L (22-29); Chloride 106 mmol/L (96-108); Creatinine Clr Calc Pharmacy 182.9; Estimated Glomerular Filt Rate > 60; Glucose Random 92 mg/dL (60-115); Magnesium 1.9 mg/dL (1.6-2.6); Phosphorus 4.4 mg/dL (2.7-4.5); Potassium 4.1 mmol/L (3.3-5.1); Sodium 140 mmol/L (135-145)
--- NOTE | 2024-12-14 08:27 | MHC.CARE ---
Pt will be a bedsearch.
--- NOTE | 2024-12-14 09:39 | MHC.SLORD ---
Speech Language Pathology Order Status: SPRAYER MACHINE (w/ student) arrived to see patient, however, no PO was presented as SPRAYER MACHINE learned patient is NPO for a procedure (ECT). Discussed w/ Dr. Canela & RN, patient is reportedly tolerating regular textures without issue and there are no concerns related to dysphagia. Swallow eval is no longer needed, therefore order will be cancelled. Please re-refer with any further concern.
--- NOTE | 2024-12-14 10:18 | MHC.CLN ---
F/U DIET ADVANCED TO REGULAR, HOWEVER PT IS NPO FOR ECT TODAY PO INTAKE 100% X 2 MEALS PPN TO D/C PER MD VISITED PT WHO STATED HE IS HUNGRY MONITOR PO INTAKE RD TO FOLLOW WEEKLY
--- NOTE | 2024-12-14 10:46 | HO.ANESPROP2 ---
[facility] Active Problems Active Problems: All Active Problems Fever, unknown origin (Acute) Catatonia (Acute) Schizophrenia (Acute) Autism spectrum disorder (Acute) Psychiatric illness (Acute) Past Medical History Medical History Fever, unknown origin Autism spectrum disorder Family History Family history of problems with anesthesia: No Surgical History History of Problems with Anesthesia: No Social History Social History Household Members: None Household Members Other:: pt is admit fr M# for catatonia, not response to questions, JULIO CESAR Housing: Homeless Do you presently have visiting nurse or other home services: No Comment: 1:1 sitter at bedside Patient Tobacco Use Status: Never used Tobacco e-Cigarette/Vaping Use: Never Used Second Hand Smoke Exposure: No Use of substances other than those prescribed or required for medical reasons: Unable to respond Currently Displaying Signs/Symptoms of Drug Intoxication Withdrawal: No Advance Directives: No Advance Directives Information Provided: No Do you have a plan to hurt others: No Plan service: No Sexual orientation: Decline to Answer Meds Allergies Allergy/AdvReac Type Severity Reaction Status Date / Time No Known Allergies Allergy Verified 11/28/24 13:56 Active Medications: Current Medications Acetaminophen (Acetaminophen Supp 650 Mg Supp.Rect) 650 mg MI Q6H PRN PRN Reason: Fever Last Admin: 12/11/24 05:47 Dose: 650 mg Amoxicillin/Clavulanate Potassium (Amoxicillin/Potassium Clav 875 Mg Tablet) 875 mg PO Q12H [facility] Last Admin: 12/14/24 07:45 Dose: 875 mg Diazepam (Diazepam 10 Mg/2 Ml Cartridge) 5 mg IVPUSH TID [facility] Last Admin: 12/13/24 08:34 Dose: 5 mg Diazepam (Diazepam 10 Mg/2 Ml Cartridge) 5 mg IVPUSH DAILY PRN PRN Reason: diazepam withdrawal Enoxaparin Sodium (Enoxaparin Sodium 40 Mg/0.4 Ml Syringe) 40 mg SUBCUT Q24H [facility] Last Admin: 12/13/24 14:37 Dose: 40 mg Erythromycin (Erythromycin Base 0.5% Oph Oin 1 Gm Tube) 1 cm EYE-BOTH QID [facility] Last Admin: 12/14/24 07:45 Dose: Not Given Naloxone HCl (Naloxone Hcl 0.4 Mg/Ml Vial) 0.04 mg IVPUSH Q5M PRN PRN Reason: Excessive sedation or RR < 8 Sodium Chloride (0.9 % Sodium Chloride Flush 3 Ml Syringe) 3 ml IVFLUSH QSHIFT [facility] Last Admin: 12/14/24 07:45 Dose: 3 ml Home Medications ?Medication ?Instructions ?Recorded ?Confirmed ?Last Taken ?Type No Known Home Meds 12/04/24 12/04/24 Unknown History Exam Height,Weight and Vital Signs: Height 6 ft Weight 96.5 kg Last Vital Signs Temp 99 F 12/14/24 07:07 Pulse 103 H 12/14/24 08:26 Resp 20 12/14/24 07:07 BP 97/52 L 12/14/24 08:26 Pulse Ox 92 12/14/24 08:26 O2 Del Method Room Air 12/14/24 07:07 O2 Flow Rate 2 12/12/24 13:15 Pertinent Lab Results Pertinent Lab Results: Laboratory Tests 12/04/24 12/04/24 12/04/24 18:42 18:53 19:05 WBC 5.8 RBC 5.22 Hgb 15.6 Hct 46.5 MCV 89.1 MCH 29.9 MCHC 33.5 RDW 12.2 Plt Count 282 MPV 9.8 Immature Gran % (Auto) 0.2 Neut % (Auto) 48.3 Lymph % (Auto) 39.2 [place] % (Auto) 10.4 Eos % (Auto) 1.0 Baso % (Auto) 0.9 Lymph # (Auto) 2.3 [place] # (Auto) 0.6 Eos # (Auto) 0.1 Baso # (Auto) 0.1 Abs Immat Gran (auto) 0.01 Absolute Neuts (auto) 2.8 Absolute Nucleated RBC 0.000 Nucleated RBC % (auto) 0.0 Hold Purple Top D-Dimer High Sensitivty VBG pH 7.40 VBG pCO2 48 VBG pO2 41 VBG HCO3 30 H VBG O2 Saturation 65.0 VBG Base Excess 4.8 Sodium 143 Potassium 4.2 Chloride 106 Carbon Dioxide 26 Anion Gap 15 BUN 17 H Creatinine 1.03 Estim Creat Clear Calc 133.2 Estimated GFR > 60 POC Glucose Random Glucose 86 Lactic Acid Lactic Acid F/U @ 2Hr Calcium 10.6 H Phosphorus Magnesium Total Bilirubin 1.2 H Direct Bilirubin 0.4 AST 37 ALT 24 Alkaline Phosphatase 48 Total Creatine Kinase 574 H Total Protein 8.1 H Albumin 4.6 Triglycerides Urine Color Urine Appearance Urine pH Ur Specific [place] Urine Protein Urine Glucose (UA) Urine Ketones Urine Blood Urine Nitrite Ur Leukocyte Esterase CSF Tube Number CSF Volume CSF Appearance CSF Color CSF WBC CSF RBC CSF Appearance (b) CSF Glucose CSF Total Protein CSF C.neoform/gat PCR CSF CMV DNA (PCR) CSF Enterovirus (PCR) CSF E. coli K1 (PCR) CSF H. influenzae (PCR) CSF HSV I (PCR) CSF HSV II (PCR) CSF HHV 6 (PCR) CSF L.monocytogenes PCR CSF N. meningitidis PCR CSF Parechovirus (PCR) CSF S. agalactiae (PCR) CSF S. pneumoniae (PCR) CSF VZV (PCR) Random Vancomycin T.pallidum Ab (EIA) A.phagocytophil DNA PCR Babesia microti DNA PCR Borrelia sp DNA (PCR) Borrelia miyamotoi (PCR) E.chaffeensis DNA (PCR) HIV 1&2 Ab/P24 Ag 4thGn Influenza Type A (PCR) Influenza Type B (PCR) RSV RNA Qual (PCR) SARS-CoV-2 RNA (RT-PCR) Tick-borne Disease PCR 12/05/24 12/05/24 12/05/24 05:50 05:52 10:23 WBC 3.8 L RBC 4.46 L Hgb 13.0 L Hct 40.5 L MCV 90.8 MCH 29.1 MCHC 32.1 RDW 12.0 Plt Count 260 MPV 10.0 Immature Gran % (Auto) 0.3 Neut % (Auto) 37.7 L Lymph % (Auto) 47.6 H [place] % (Auto) 10.4 Eos % (Auto) 2.7 Baso % (Auto) 1.3 Lymph # (Auto) 1.8 [place] # (Auto) 0.4 Eos # (Auto) 0.1 Baso # (Auto) 0.1 Abs Immat Gran (auto) 0.01 Absolute Neuts (auto) 1.4 L Absolute Nucleated RBC 0.000 Nucleated RBC % (auto) 0.0 Hold Purple Top D-Dimer High Sensitivty VBG pH 7.46 H VBG pCO2 42 VBG pO2 68 VBG HCO3 30 H VBG O2 Saturation 93.0 VBG Base Excess 6.3 Sodium 143 Potassium 3.8 Chloride 110 H Carbon Dioxide 26 Anion Gap 11 L BUN 13 Creatinine 0.89 Estim Creat Clear Calc 154.1 Estimated GFR > 60 POC Glucose Random Glucose 114 Lactic Acid Lactic Acid F/U @ 2Hr Calcium 9.2 D Phosphorus 3.2 Magnesium 2.0 Total Bilirubin 0.9 Direct Bilirubin AST 35 ALT 23 Alkaline Phosphatase 38 L Total Creatine Kinase 502 H Total Protein 6.4 L Albumin 3.8 Triglycerides 53 Urine Color Urine Appearance Urine pH Ur Specific [place] Urine Protein Urine Glucose (UA) Urine Ketones Urine Blood Urine Nitrite Ur Leukocyte Esterase CSF Tube Number CSF Volume CSF Appearance CSF Color CSF WBC CSF RBC CSF Appearance (b) CSF Glucose CSF Total Protein CSF C.neoform/gat PCR CSF CMV DNA (PCR) CSF Enterovirus (PCR) CSF E. coli K1 (PCR) CSF H. influenzae (PCR) CSF HSV I (PCR) CSF HSV II (PCR) CSF HHV 6 (PCR) CSF L.monocytogenes PCR CSF N. meningitidis PCR CSF Parechovirus (PCR) CSF S. agalactiae (PCR) CSF S. pneumoniae (PCR) CSF VZV (PCR) Random Vancomycin T.pallidum Ab (EIA) A.phagocytophil DNA PCR Babesia microti DNA PCR Borrelia sp DNA (PCR) Borrelia miyamotoi (PCR) E.chaffeensis DNA (PCR) HIV 1&2 Ab/P24 Ag 4thGn Influenza Type A (PCR) Influenza Type B (PCR) RSV RNA Qual (PCR) SARS-CoV-2 RNA (RT-PCR) Tick-borne Disease PCR 12/06/24 12/06/24 12/07/24 05:29 05:30 05:09 WBC 4.3 L 5.0 RBC 4.17 L 4.48 L Hgb 12.6 L 13.5 L Hct 37.7 L 39.8 L MCV 90.4 88.8 MCH 30.2 30.1 MCHC 33.4 33.9 RDW 11.9 11.7 Plt Count 233 234 MPV 9.8 9.6 Immature Gran % (Auto) 0.2 0.2 Neut % (Auto) 39.5 L 45.7 Lymph % (Auto) 48.5 H 42.9 H [place] % (Auto) 8.5 7.8 Eos % (Auto) 2.6 2.6 Baso % (Auto) 0.7 0.8 Lymph # (Auto) 2.1 2.1 [place] # (Auto) 0.4 0.4 Eos # (Auto) 0.1 0.1 Baso # (Auto) 0.0 0.0 Abs Immat Gran (auto) 0.01 0.01 Absolute Neuts (auto) 1.7 L 2.3 Absolute Nucleated RBC 0.000 0.000 Nucleated RBC % (auto) 0.0 0.0 Hold Purple Top D-Dimer High Sensitivty VBG pH 7.42 VBG pCO2 43 VBG pO2 95 VBG HCO3 28 H VBG O2 Saturation 98.0 VBG Base Excess 3.9 Sodium 143 140 Potassium 3.9 4.0 Chloride 111 H 108 Carbon Dioxide 25 25 Anion Gap 11 L 11 L BUN 9 10 Creatinine 0.84 0.77 Estim Creat Clear Calc 163.3 178.1 Estimated GFR > 60 > 60 POC Glucose Random Glucose 100 96 Lactic Acid Lactic Acid F/U @ 2Hr Calcium 9.3 9.5 Phosphorus 3.6 3.8 Magnesium 2.0 2.1 Total Bilirubin 0.8 Direct Bilirubin AST 31 ALT 17 Alkaline Phosphatase 36 L Total Creatine Kinase Total Protein 6.2 L Albumin 3.6 3.7 Triglycerides Urine Color Urine Appearance Urine pH Ur Specific [place] Urine Protein Urine Glucose (UA) Urine Ketones Urine Blood Urine Nitrite Ur Leukocyte Esterase CSF Tube Number CSF Volume CSF Appearance CSF Color CSF WBC CSF RBC CSF Appearance (b) CSF Glucose CSF Total Protein CSF C.neoform/gat PCR CSF CMV DNA (PCR) CSF Enterovirus (PCR) CSF E. coli K1 (PCR) CSF H. influenzae (PCR) CSF HSV I (PCR) CSF HSV II (PCR) CSF HHV 6 (PCR) CSF L.monocytogenes PCR CSF N. meningitidis PCR CSF Parechovirus (PCR) CSF S. agalactiae (PCR) CSF S. pneumoniae (PCR) CSF VZV (PCR) Random Vancomycin T.pallidum Ab (EIA) A.phagocytophil DNA PCR Babesia microti DNA PCR Borrelia sp DNA (PCR) Borrelia miyamotoi (PCR) E.chaffeensis DNA (PCR) HIV 1&2 Ab/P24 Ag 4thGn Influenza Type A (PCR) Influenza Type B (PCR) RSV RNA Qual (PCR) SARS-CoV-2 RNA (RT-PCR) Tick-borne Disease PCR 04/26/25 04/26/25 04/27/25 09:54 21:45 00:42 WBC RBC Hgb Hct MCV MCH MCHC RDW Plt Count MPV Immature Gran % (Auto) Neut % (Auto) Lymph % (Auto) [place] % (Auto) Eos % (Auto) Baso % (Auto) Lymph # (Auto) [place] # (Auto) Eos # (Auto) Baso # (Auto) Abs Immat Gran (auto) Absolute Neuts (auto) Absolute Nucleated RBC Nucleated RBC % (auto) Hold Purple Top D-Dimer High Sensitivty 874 VBG pH VBG pCO2 VBG pO2 VBG HCO3 VBG O2 Saturation VBG Base Excess Sodium 137 Potassium 4.1 Chloride 105 Carbon Dioxide 25 Anion Gap 11 L BUN 9 Creatinine 0.80 Estim Creat Clear Calc 171.5 Estimated GFR > 60 POC Glucose Random Glucose 94 Lactic Acid 3.2 H* Lactic Acid F/U @ 2Hr Calcium 9.7 Phosphorus Magnesium Total Bilirubin 0.7 Direct Bilirubin AST 25 ALT 22 Alkaline Phosphatase 44 Total Creatine Kinase Total Protein 7.1 Albumin 3.9 Triglycerides Urine Color Urine Appearance Urine pH Ur Specific [place] Urine Protein Urine Glucose (UA) Urine Ketones Urine Blood Urine Nitrite Ur Leukocyte Esterase CSF Tube Number CSF Volume CSF Appearance CSF Color CSF WBC CSF RBC CSF Appearance (b) CSF Glucose CSF Total Protein CSF C.neoform/gat PCR CSF CMV DNA (PCR) CSF Enterovirus (PCR) CSF E. coli K1 (PCR) CSF H. influenzae (PCR) CSF HSV I (PCR) CSF HSV II (PCR) CSF HHV 6 (PCR) CSF L.monocytogenes PCR CSF N. meningitidis PCR CSF Parechovirus (PCR) CSF S. agalactiae (PCR) CSF S. pneumoniae (PCR) CSF VZV (PCR) Random Vancomycin T.pallidum Ab (EIA) A.phagocytophil DNA PCR Babesia microti DNA PCR Borrelia sp DNA (PCR) Borrelia miyamotoi (PCR) E.chaffeensis DNA (PCR) HIV 1&2 Ab/P24 Ag 4thGn Influenza Type A (PCR) Influenza Type B (PCR) RSV RNA Qual (PCR) SARS-CoV-2 RNA (RT-PCR) Tick-borne Disease PCR 12/09/24 12/09/24 12/09/24 01:17 03:47 03:49 WBC RBC Hgb Hct MCV MCH MCHC RDW Plt Count MPV Immature Gran % (Auto) Neut % (Auto) Lymph % (Auto) [place] % (Auto) Eos % (Auto) Baso % (Auto) Lymph # (Auto) [place] # (Auto) Eos # (Auto) Baso # (Auto) Abs Immat Gran (auto) Absolute Neuts (auto) Absolute Nucleated RBC Nucleated RBC % (auto) Hold Purple Top D-Dimer High Sensitivty VBG pH VBG pCO2 VBG pO2 VBG HCO3 VBG O2 Saturation VBG Base Excess Sodium Potassium Chloride Carbon Dioxide Anion Gap BUN Creatinine Estim Creat Clear Calc Estimated GFR POC Glucose 91 Random Glucose Lactic Acid Lactic Acid F/U @ 2Hr Cancelled Calcium Phosphorus Magnesium Total Bilirubin Direct Bilirubin AST ALT Alkaline Phosphatase Total Creatine Kinase Total Protein Albumin Triglycerides Urine Color Yellow Urine Appearance Clear Urine pH 8.5 Ur Specific [place] 1.015 Urine Protein Negative Urine Glucose (UA) Negative Urine Ketones Negative Urine Blood Negative Urine Nitrite Negative Ur Leukocyte Esterase Negative CSF Tube Number CSF Volume CSF Appearance CSF Color CSF WBC CSF RBC CSF Appearance (b) CSF Glucose CSF Total Protein CSF C.neoform/gat PCR CSF CMV DNA (PCR) CSF Enterovirus (PCR) CSF E. coli K1 (PCR) CSF H. influenzae (PCR) CSF HSV I (PCR) CSF HSV II (PCR) CSF HHV 6 (PCR) CSF L.monocytogenes PCR CSF N. meningitidis PCR CSF Parechovirus (PCR) CSF S. agalactiae (PCR) CSF S. pneumoniae (PCR) CSF VZV (PCR) Random Vancomycin T.pallidum Ab (EIA) A.phagocytophil DNA PCR Babesia microti DNA PCR Borrelia sp DNA (PCR) Borrelia miyamotoi (PCR) E.chaffeensis DNA (PCR) HIV 1&2 Ab/P24 Ag 4thGn Influenza Type A (PCR) Influenza Type B (PCR) RSV RNA Qual (PCR) SARS-CoV-2 RNA (RT-PCR) Tick-borne Disease PCR 12/09/24 12/09/24 12/09/24 06:04 12:41 12:42 WBC RBC Hgb Hct MCV MCH MCHC RDW Plt Count MPV Immature Gran % (Auto) Neut % (Auto) Lymph % (Auto) [place] % (Auto) Eos % (Auto) Baso % (Auto) Lymph # (Auto) [place] # (Auto) Eos # (Auto) Baso # (Auto) Abs Immat Gran (auto) Absolute Neuts (auto) Absolute Nucleated RBC Nucleated RBC % (auto) Hold Purple Top D-Dimer High Sensitivty VBG pH VBG pCO2 VBG pO2 VBG HCO3 VBG O2 Saturation VBG Base Excess Sodium Potassium Chloride Carbon Dioxide Anion Gap BUN Creatinine Estim Creat Clear Calc Estimated GFR POC Glucose 81 95 Random Glucose Lactic Acid Lactic Acid F/U @ 2Hr Calcium Phosphorus Magnesium Total Bilirubin Direct Bilirubin AST ALT Alkaline Phosphatase Total Creatine Kinase Total Protein Albumin Triglycerides Urine Color Urine Appearance Urine pH Ur Specific [place] Urine Protein Urine Glucose (UA) Urine Ketones Urine Blood Urine Nitrite Ur Leukocyte Esterase CSF Tube Number CSF Volume CSF Appearance CSF Color CSF WBC CSF RBC CSF Appearance (b) CSF Glucose CSF Total Protein CSF C.neoform/gat PCR CSF CMV DNA (PCR) CSF Enterovirus (PCR) CSF E. coli K1 (PCR) CSF H. influenzae (PCR) CSF HSV I (PCR) CSF HSV II (PCR) CSF HHV 6 (PCR) CSF L.monocytogenes PCR CSF N. meningitidis PCR CSF Parechovirus (PCR) CSF S. agalactiae (PCR) CSF S. pneumoniae (PCR) CSF VZV (PCR) Random Vancomycin T.pallidum Ab (EIA) A.phagocytophil DNA PCR Babesia microti DNA PCR Borrelia sp DNA (PCR) Borrelia miyamotoi (PCR) E.chaffeensis DNA (PCR) HIV 1&2 Ab/P24 Ag 4thGn Influenza Type A (PCR) NEGATIVE Influenza Type B (PCR) NEGATIVE RSV RNA Qual (PCR) NEGATIVE SARS-CoV-2 RNA (RT-PCR) NEGATIVE Tick-borne Disease PCR 12/09/24 12/09/24 12/09/24 13:20 14:49 18:49 WBC 15.1 H RBC 4.61 Hgb 13.7 L Hct 39.3 L MCV 85.2 MCH 29.7 MCHC 34.9 RDW 11.8 Plt Count 177 MPV 11.0 Immature Gran % (Auto) Neut % (Auto) Lymph % (Auto) [place] % (Auto) Eos % (Auto) Baso % (Auto) Lymph # (Auto) [place] # (Auto) Eos # (Auto) Baso # (Auto) Abs Immat Gran (auto) Absolute Neuts (auto) Absolute Nucleated RBC 0.000 Nucleated RBC % (auto) 0.0 Hold Purple Top D-Dimer High Sensitivty VBG pH VBG pCO2 VBG pO2 VBG HCO3 VBG O2 Saturation VBG Base Excess Sodium 137 136 Potassium 4.8 5.2 H Chloride 106 106 Carbon Dioxide 20 L 19 L Anion Gap 16 16 BUN 10 10 Creatinine 0.74 0.76 Estim Creat Clear Calc 185.4 180.5 Estimated GFR > 60 > 60 POC Glucose 84 Random Glucose 101 95 Lactic Acid Lactic Acid F/U @ 2Hr Calcium 9.4 9.2 Phosphorus 2.7 2.9 Magnesium 1.8 1.8 Total Bilirubin Direct Bilirubin AST ALT Alkaline Phosphatase Total Creatine Kinase 79 Total Protein Albumin 3.6 Triglycerides Urine Color Urine Appearance Urine pH Ur Specific [place] Urine Protein Urine Glucose (UA) Urine Ketones Urine Blood Urine Nitrite Ur Leukocyte Esterase CSF Tube Number CSF Volume CSF Appearance CSF Color CSF WBC CSF RBC CSF Appearance (b) CSF Glucose CSF Total Protein CSF C.neoform/gat PCR CSF CMV DNA (PCR) CSF Enterovirus (PCR) CSF E. coli K1 (PCR) CSF H. influenzae (PCR) CSF HSV I (PCR) CSF HSV II (PCR) CSF HHV 6 (PCR) CSF L.monocytogenes PCR CSF N. meningitidis PCR CSF Parechovirus (PCR) CSF S. agalactiae (PCR) CSF S. pneumoniae (PCR) CSF VZV (PCR) Random Vancomycin T.pallidum Ab (EIA) A.phagocytophil DNA PCR Babesia microti DNA PCR Borrelia sp DNA (PCR) Borrelia miyamotoi (PCR) E.chaffeensis DNA (PCR) HIV 1&2 Ab/P24 Ag 4thGn Influenza Type A (PCR) Influenza Type B (PCR) RSV RNA Qual (PCR) SARS-CoV-2 RNA (RT-PCR) Tick-borne Disease PCR 12/09/24 12/10/24 12/10/24 19:52 00:13 06:11 WBC RBC Hgb Hct MCV MCH MCHC RDW Plt Count MPV Immature Gran % (Auto) Neut % (Auto) Lymph % (Auto) [place] % (Auto) Eos % (Auto) Baso % (Auto) Lymph # (Auto) [place] # (Auto) Eos # (Auto) Baso # (Auto) Abs Immat Gran (auto) Absolute Neuts (auto) Absolute Nucleated RBC Nucleated RBC % (auto) Hold Purple Top D-Dimer High Sensitivty VBG pH VBG pCO2 VBG pO2 VBG HCO3 VBG O2 Saturation VBG Base Excess Sodium Potassium Chloride Carbon Dioxide Anion Gap BUN Creatinine Estim Creat Clear Calc Estimated GFR POC Glucose 78 110 Random Glucose Lactic Acid Lactic Acid F/U @ 2Hr Calcium Phosphorus Magnesium Total Bilirubin Direct Bilirubin AST ALT Alkaline Phosphatase Total Creatine Kinase Total Protein Albumin Triglycerides Urine Color Urine Appearance Urine pH Ur Specific [place] Urine Protein Urine Glucose (UA) Urine Ketones Urine Blood Urine Nitrite Ur Leukocyte Esterase CSF Tube Number CSF Volume CSF Appearance CSF Color CSF WBC CSF RBC CSF Appearance (b) CSF Glucose CSF Total Protein CSF C.neoform/gat PCR CSF CMV DNA (PCR) CSF Enterovirus (PCR) CSF E. coli K1 (PCR) CSF H. influenzae (PCR) CSF HSV I (PCR) CSF HSV II (PCR) CSF HHV 6 (PCR) CSF L.monocytogenes PCR CSF N. meningitidis PCR CSF Parechovirus (PCR) CSF S. agalactiae (PCR) CSF S. pneumoniae (PCR) CSF VZV (PCR) Random Vancomycin T.pallidum Ab (EIA) Nonreactive A.phagocytophil DNA PCR NOT DETECTED Babesia microti DNA PCR NOT DETECTED Borrelia sp DNA (PCR) NOT DETECTED Borrelia miyamotoi (PCR) NOT DETECTED E.chaffeensis DNA (PCR) NOT DETECTED HIV 1&2 Ab/P24 Ag 4thGn Nonreactive Influenza Type A (PCR) Influenza Type B (PCR) RSV RNA Qual (PCR) SARS-CoV-2 RNA (RT-PCR) Tick-borne Disease PCR SEE NOTE 12/10/24 12/10/24 12/10/24 08:23 11:44 11:44 WBC 8.9 RBC 4.12 L Hgb 12.3 L Hct 35.5 L MCV 86.2 MCH 29.9 MCHC 34.6 RDW 11.9 Plt Count 165 MPV 11.3 Immature Gran % (Auto) Neut % (Auto) Lymph % (Auto) [place] % (Auto) Eos % (Auto) Baso % (Auto) Lymph # (Auto) [place] # (Auto) Eos # (Auto) Baso # (Auto) Abs Immat Gran (auto) Absolute Neuts (auto) Absolute Nucleated RBC 0.000 Nucleated RBC % (auto) 0.0 Hold Purple Top D-Dimer High Sensitivty VBG pH VBG pCO2 VBG pO2 VBG HCO3 VBG O2 Saturation VBG Base Excess Sodium 137 Potassium 4.4 Chloride 107 Carbon Dioxide 20 L Anion Gap 14 BUN 9 Creatinine 0.73 Estim Creat Clear Calc 187.9 Estimated GFR > 60 POC Glucose Random Glucose 102 Lactic Acid Lactic Acid F/U @ 2Hr Calcium 9.0 Phosphorus 2.7 Magnesium 1.9 Total Bilirubin Direct Bilirubin AST ALT Alkaline Phosphatase Total Creatine Kinase Total Protein Albumin 3.3 L Triglycerides Urine Color Urine Appearance Urine pH Ur Specific [place] Urine Protein Urine Glucose (UA) Urine Ketones Urine Blood Urine Nitrite Ur Leukocyte Esterase CSF Tube Number 3 1 CSF Volume CSF Appearance CSF Color CSF WBC CSF RBC CSF Appearance (b) CSF Glucose CSF Total Protein CSF C.neoform/gat PCR CSF CMV DNA (PCR) CSF Enterovirus (PCR) CSF E. coli K1 (PCR) CSF H. influenzae (PCR) CSF HSV I (PCR) CSF HSV II (PCR) CSF HHV 6 (PCR) CSF L.monocytogenes PCR CSF N. meningitidis PCR CSF Parechovirus (PCR) CSF S. agalactiae (PCR) CSF S. pneumoniae (PCR) CSF VZV (PCR) Random Vancomycin T.pallidum Ab (EIA) A.phagocytophil DNA PCR Babesia microti DNA PCR Borrelia sp DNA (PCR) Borrelia miyamotoi (PCR) E.chaffeensis DNA (PCR) HIV 1&2 Ab/P24 Ag 4thGn Influenza Type A (PCR) Influenza Type B (PCR) RSV RNA Qual (PCR) SARS-CoV-2 RNA (RT-PCR) Tick-borne Disease PCR 12/10/24 12/10/24 12/10/24 11:44 11:44 11:44 WBC RBC Hgb Hct MCV MCH MCHC RDW Plt Count MPV Immature Gran % (Auto) Neut % (Auto) Lymph % (Auto) [place] % (Auto) Eos % (Auto) Baso % (Auto) Lymph # (Auto) [place] # (Auto) Eos # (Auto) Baso # (Auto) Abs Immat Gran (auto) Absolute Neuts (auto) Absolute Nucleated RBC Nucleated RBC % (auto) Hold Purple Top D-Dimer High Sensitivty VBG pH VBG pCO2 VBG pO2 VBG HCO3 VBG O2 Saturation VBG Base Excess Sodium Potassium Chloride Carbon Dioxide Anion Gap BUN Creatinine Estim Creat Clear Calc Estimated GFR POC Glucose Random Glucose Lactic Acid Lactic Acid F/U @ 2Hr Calcium Phosphorus Magnesium Total Bilirubin Direct Bilirubin AST ALT Alkaline Phosphatase Total Creatine Kinase Total Protein Albumin Triglycerides Urine Color Urine Appearance Urine pH Ur Specific [place] Urine Protein Urine Glucose (UA) Urine Ketones Urine Blood Urine Nitrite Ur Leukocyte Esterase CSF Tube Number 4 CSF Volume 4.0 4.0 CSF Appearance CLEAR CLEAR CSF Color COLORLESS CSF WBC CSF RBC CSF Appearance (b) CSF Glucose CSF Total Protein CSF C.neoform/gat PCR CSF CMV DNA (PCR) CSF Enterovirus (PCR) CSF E. coli K1 (PCR) CSF H. influenzae (PCR) CSF HSV I (PCR) CSF HSV II (PCR) CSF HHV 6 (PCR) CSF L.monocytogenes PCR CSF N. meningitidis PCR CSF Parechovirus (PCR) CSF S. agalactiae (PCR) CSF S. pneumoniae (PCR) CSF VZV (PCR) Random Vancomycin T.pallidum Ab (EIA) A.phagocytophil DNA PCR Babesia microti DNA PCR Borrelia sp DNA (PCR) Borrelia miyamotoi (PCR) E.chaffeensis DNA (PCR) HIV 1&2 Ab/P24 Ag 4thGn Influenza Type A (PCR) Influenza Type B (PCR) RSV RNA Qual (PCR) SARS-CoV-2 RNA (RT-PCR) Tick-borne Disease PCR 12/10/24 12/10/24 12/10/24 11:44 11:44 11:44 WBC RBC Hgb Hct MCV MCH MCHC RDW Plt Count MPV Immature Gran % (Auto) Neut % (Auto) Lymph % (Auto) [place] % (Auto) Eos % (Auto) Baso % (Auto) Lymph # (Auto) [place] # (Auto) Eos # (Auto) Baso # (Auto) Abs Immat Gran (auto) Absolute Neuts (auto) Absolute Nucleated RBC Nucleated RBC % (auto) Hold Purple Top D-Dimer High Sensitivty VBG pH VBG pCO2 VBG pO2 VBG HCO3 VBG O2 Saturation VBG Base Excess Sodium Potassium Chloride Carbon Dioxide Anion Gap BUN Creatinine Estim Creat Clear Calc Estimated GFR POC Glucose Random Glucose Lactic Acid Lactic Acid F/U @ 2Hr Calcium Phosphorus Magnesium Total Bilirubin Direct Bilirubin AST ALT Alkaline Phosphatase Total Creatine Kinase Total Protein Albumin Triglycerides Urine Color Urine Appearance Urine pH Ur Specific [place] Urine Protein Urine Glucose (UA) Urine Ketones Urine Blood Urine Nitrite Ur Leukocyte Esterase CSF Tube Number CSF Volume CSF Appearance CSF Color COLORLESS CSF WBC 0 0 CSF RBC 346 25 CSF Appearance (b) Clear, Colorless CSF Glucose 64 CSF Total Protein 20.3 CSF C.neoform/gat PCR Not Detected CSF CMV DNA (PCR) Not Detected CSF Enterovirus (PCR) Not Detected CSF E. coli K1 (PCR) Not Detected CSF H. influenzae (PCR) Not Detected CSF HSV I (PCR) Not Detected CSF HSV II (PCR) Not Detected CSF HHV 6 (PCR) Not Detected CSF L.monocytogenes PCR Not Detected CSF N. meningitidis PCR Not Detected CSF Parechovirus (PCR) Not Detected CSF S. agalactiae (PCR) Not Detected CSF S. pneumoniae (PCR) Not Detected CSF VZV (PCR) Not Detected Random Vancomycin T.pallidum Ab (EIA) A.phagocytophil DNA PCR Babesia microti DNA PCR Borrelia sp DNA (PCR) Borrelia miyamotoi (PCR) E.chaffeensis DNA (PCR) HIV 1&2 Ab/P24 Ag 4thGn Influenza Type A (PCR) Influenza Type B (PCR) RSV RNA Qual (PCR) SARS-CoV-2 RNA (RT-PCR) Tick-borne Disease PCR 12/10/24 12/10/24 12/10/24 12:11 12:57 18:30 WBC RBC Hgb Hct MCV MCH MCHC RDW Plt Count MPV Immature Gran % (Auto) Neut % (Auto) Lymph % (Auto) [place] % (Auto) Eos % (Auto) Baso % (Auto) Lymph # (Auto) [place] # (Auto) Eos # (Auto) Baso # (Auto) Abs Immat Gran (auto) Absolute Neuts (auto) Absolute Nucleated RBC Nucleated RBC % (auto) Hold Purple Top D-Dimer High Sensitivty VBG pH VBG pCO2 VBG pO2 VBG HCO3 VBG O2 Saturation VBG Base Excess Sodium Potassium Chloride Carbon Dioxide Anion Gap BUN Creatinine Estim Creat Clear Calc Estimated GFR POC Glucose 87 86 Random Glucose Lactic Acid Lactic Acid F/U @ 2Hr Calcium Phosphorus Magnesium Total Bilirubin Direct Bilirubin AST ALT Alkaline Phosphatase Total Creatine Kinase Total Protein Albumin Triglycerides Urine Color Urine Appearance Urine pH Ur Specific [place] Urine Protein Urine Glucose (UA) Urine Ketones Urine Blood Urine Nitrite Ur Leukocyte Esterase CSF Tube Number CSF Volume CSF Appearance CSF Color CSF WBC CSF RBC CSF Appearance (b) CSF Glucose CSF Total Protein CSF C.neoform/gat PCR CSF CMV DNA (PCR) CSF Enterovirus (PCR) CSF E. coli K1 (PCR) CSF H. influenzae (PCR) CSF HSV I (PCR) CSF HSV II (PCR) CSF HHV 6 (PCR) CSF L.monocytogenes PCR CSF N. meningitidis PCR CSF Parechovirus (PCR) CSF S. agalactiae (PCR) CSF S. pneumoniae (PCR) CSF VZV (PCR) Random Vancomycin 6.3 L T.pallidum Ab (EIA) A.phagocytophil DNA PCR Babesia microti DNA PCR Borrelia sp DNA (PCR) Borrelia miyamotoi (PCR) E.chaffeensis DNA (PCR) HIV 1&2 Ab/P24 Ag 4thGn Influenza Type A (PCR) Influenza Type B (PCR) RSV RNA Qual (PCR) SARS-CoV-2 RNA (RT-PCR) Tick-borne Disease PCR 12/10/24 12/11/24 12/11/24 23:05 05:32 06:31 WBC RBC Hgb Hct MCV MCH MCHC RDW Plt Count MPV Immature Gran % (Auto) Neut % (Auto) Lymph % (Auto) [place] % (Auto) Eos % (Auto) Baso % (Auto) Lymph # (Auto) [place] # (Auto) Eos # (Auto) Baso # (Auto) Abs Immat Gran (auto) Absolute Neuts (auto) Absolute Nucleated RBC Nucleated RBC % (auto) Hold Purple Top SEE NOTE D-Dimer High Sensitivty VBG pH VBG pCO2 VBG pO2 VBG HCO3 VBG O2 Saturation VBG Base Excess Sodium 140 Potassium 4.2 Chloride 108 Carbon Dioxide 26 Anion Gap 10 L BUN 7 L Creatinine 0.70 Estim Creat Clear Calc 196.0 Estimated GFR > 60 POC Glucose 100 93 Random Glucose 98 Lactic Acid Lactic Acid F/U @ 2Hr Calcium 9.6 D Phosphorus 3.7 Magnesium 2.0 Total Bilirubin Direct Bilirubin AST ALT Alkaline Phosphatase Total Creatine Kinase Total Protein Albumin 3.5 Triglycerides Urine Color Urine Appearance Urine pH Ur Specific [place] Urine Protein Urine Glucose (UA) Urine Ketones Urine Blood Urine Nitrite Ur Leukocyte Esterase CSF Tube Number CSF Volume CSF Appearance CSF Color CSF WBC CSF RBC CSF Appearance (b) CSF Glucose CSF Total Protein CSF C.neoform/gat PCR CSF CMV DNA (PCR) CSF Enterovirus (PCR) CSF E. coli K1 (PCR) CSF H. influenzae (PCR) CSF HSV I (PCR) CSF HSV II (PCR) CSF HHV 6 (PCR) CSF L.monocytogenes PCR CSF N. meningitidis PCR CSF Parechovirus (PCR) CSF S. agalactiae (PCR) CSF S. pneumoniae (PCR) CSF VZV (PCR) Random Vancomycin T.pallidum Ab (EIA) A.phagocytophil DNA PCR Babesia microti DNA PCR Borrelia sp DNA (PCR) Borrelia miyamotoi (PCR) E.chaffeensis DNA (PCR) HIV 1&2 Ab/P24 Ag 4thGn Influenza Type A (PCR) Influenza Type B (PCR) RSV RNA Qual (PCR) SARS-CoV-2 RNA (RT-PCR) Tick-borne Disease PCR 12/11/24 12/11/24 12/11/24 11:28 18:05 20:57 WBC RBC Hgb Hct MCV MCH MCHC RDW Plt Count MPV Immature Gran % (Auto) Neut % (Auto) Lymph % (Auto) [place] % (Auto) Eos % (Auto) Baso % (Auto) Lymph # (Auto) [place] # (Auto) Eos # (Auto) Baso # (Auto) Abs Immat Gran (auto) Absolute Neuts (auto) Absolute Nucleated RBC Nucleated RBC % (auto) Hold Purple Top D-Dimer High Sensitivty VBG pH VBG pCO2 VBG pO2 VBG HCO3 VBG O2 Saturation VBG Base Excess Sodium Potassium Chloride Carbon Dioxide Anion Gap BUN Creatinine Estim Creat Clear Calc Estimated GFR POC Glucose 92 105 88 Random Glucose Lactic Acid Lactic Acid F/U @ 2Hr Calcium Phosphorus Magnesium Total Bilirubin Direct Bilirubin AST ALT Alkaline Phosphatase Total Creatine Kinase Total Protein Albumin Triglycerides Urine Color Urine Appearance Urine pH Ur Specific [place] Urine Protein Urine Glucose (UA) Urine Ketones Urine Blood Urine Nitrite Ur Leukocyte Esterase CSF Tube Number CSF Volume CSF Appearance CSF Color CSF WBC CSF RBC CSF Appearance (b) CSF Glucose CSF Total Protein CSF C.neoform/gat PCR CSF CMV DNA (PCR) CSF Enterovirus (PCR) CSF E. coli K1 (PCR) CSF H. influenzae (PCR) CSF HSV I (PCR) CSF HSV II (PCR) CSF HHV 6 (PCR) CSF L.monocytogenes PCR CSF N. meningitidis PCR CSF Parechovirus (PCR) CSF S. agalactiae (PCR) CSF S. pneumoniae (PCR) CSF VZV (PCR) Random Vancomycin T.pallidum Ab (EIA) A.phagocytophil DNA PCR Babesia microti DNA PCR Borrelia sp DNA (PCR) Borrelia miyamotoi (PCR) E.chaffeensis DNA (PCR) HIV 1&2 Ab/P24 Ag 4thGn Influenza Type A (PCR) Influenza Type B (PCR) RSV RNA Qual (PCR) SARS-CoV-2 RNA (RT-PCR) Tick-borne Disease PCR 12/12/24 12/12/24 12/12/24 00:52 06:07 07:20 WBC RBC Hgb Hct MCV MCH MCHC RDW Plt Count MPV Immature Gran % (Auto) Neut % (Auto) Lymph % (Auto) [place] % (Auto) Eos % (Auto) Baso % (Auto) Lymph # (Auto) [place] # (Auto) Eos # (Auto) Baso # (Auto) Abs Immat Gran (auto) Absolute Neuts (auto) Absolute Nucleated RBC Nucleated RBC % (auto) Hold Purple Top SEE NOTE D-Dimer High Sensitivty VBG pH VBG pCO2 VBG pO2 VBG HCO3 VBG O2 Saturation VBG Base Excess Sodium 140 Potassium 4.3 Chloride 106 Carbon Dioxide 25 Anion Gap 13 BUN 7 L Creatinine 0.71 Estim Creat Clear Calc 193.2 Estimated GFR > 60 POC Glucose 101 101 Random Glucose 87 Lactic Acid Lactic Acid F/U @ 2Hr Calcium 9.6 Phosphorus 4.4 Magnesium 1.9 Total Bilirubin Direct Bilirubin AST ALT Alkaline Phosphatase Total Creatine Kinase Total Protein Albumin 3.4 L Triglycerides Urine Color Urine Appearance Urine pH Ur Specific [place] Urine Protein Urine Glucose (UA) Urine Ketones Urine Blood Urine Nitrite Ur Leukocyte Esterase CSF Tube Number CSF Volume CSF Appearance CSF Color CSF WBC CSF RBC CSF Appearance (b) CSF Glucose CSF Total Protein CSF C.neoform/gat PCR CSF CMV DNA (PCR) CSF Enterovirus (PCR) CSF E. coli K1 (PCR) CSF H. influenzae (PCR) CSF HSV I (PCR) CSF HSV II (PCR) CSF HHV 6 (PCR) CSF L.monocytogenes PCR CSF N. meningitidis PCR CSF Parechovirus (PCR) CSF S. agalactiae (PCR) CSF S. pneumoniae (PCR) CSF VZV (PCR) Random Vancomycin T.pallidum Ab (EIA) A.phagocytophil DNA PCR Babesia microti DNA PCR Borrelia sp DNA (PCR) Borrelia miyamotoi (PCR) E.chaffeensis DNA (PCR) HIV 1&2 Ab/P24 Ag 4thGn Influenza Type A (PCR) Influenza Type B (PCR) RSV RNA Qual (PCR) SARS-CoV-2 RNA (RT-PCR) Tick-borne Disease PCR 12/12/24 12/12/24 12/12/24 11:30 18:12 23:46 WBC RBC Hgb Hct MCV MCH MCHC RDW Plt Count MPV Immature Gran % (Auto) Neut % (Auto) Lymph % (Auto) [place] % (Auto) Eos % (Auto) Baso % (Auto) Lymph # (Auto) [place] # (Auto) Eos # (Auto) Baso # (Auto) Abs Immat Gran (auto) Absolute Neuts (auto) Absolute Nucleated RBC Nucleated RBC % (auto) Hold Purple Top D-Dimer High Sensitivty VBG pH VBG pCO2 VBG pO2 VBG HCO3 VBG O2 Saturation VBG Base Excess Sodium Potassium Chloride Carbon Dioxide Anion Gap BUN Creatinine Estim Creat Clear Calc Estimated GFR POC Glucose 86 92 98 Random Glucose Lactic Acid Lactic Acid F/U @ 2Hr Calcium Phosphorus Magnesium Total Bilirubin Direct Bilirubin AST ALT Alkaline Phosphatase Total Creatine Kinase Total Protein Albumin Triglycerides Urine Color Urine Appearance Urine pH Ur Specific [place] Urine Protein Urine Glucose (UA) Urine Ketones Urine Blood Urine Nitrite Ur Leukocyte Esterase CSF Tube Number CSF Volume CSF Appearance CSF Color CSF WBC CSF RBC CSF Appearance (b) CSF Glucose CSF Total Protein CSF C.neoform/gat PCR CSF CMV DNA (PCR) CSF Enterovirus (PCR) CSF E. coli K1 (PCR) CSF H. influenzae (PCR) CSF HSV I (PCR) CSF HSV II (PCR) CSF HHV 6 (PCR) CSF L.monocytogenes PCR CSF N. meningitidis PCR CSF Parechovirus (PCR) CSF S. agalactiae (PCR) CSF S. pneumoniae (PCR) CSF VZV (PCR) Random Vancomycin T.pallidum Ab (EIA) A.phagocytophil DNA PCR Babesia microti DNA PCR Borrelia sp DNA (PCR) Borrelia miyamotoi (PCR) E.chaffeensis DNA (PCR) HIV 1&2 Ab/P24 Ag 4thGn Influenza Type A (PCR) Influenza Type B (PCR) RSV RNA Qual (PCR) SARS-CoV-2 RNA (RT-PCR) Tick-borne Disease PCR 12/13/24 12/13/24 12/13/24 06:39 06:59 11:38 WBC RBC Hgb Hct MCV MCH MCHC RDW Plt Count MPV Immature Gran % (Auto) Neut % (Auto) Lymph % (Auto) [place] % (Auto) Eos % (Auto) Baso % (Auto) Lymph # (Auto) [place] # (Auto) Eos # (Auto) Baso # (Auto) Abs Immat Gran (auto) Absolute Neuts (auto) Absolute Nucleated RBC Nucleated RBC % (auto) Hold Purple Top SEE NOTE D-Dimer High Sensitivty VBG pH VBG pCO2 VBG pO2 VBG HCO3 VBG O2 Saturation VBG Base Excess Sodium 140 Potassium 4.0 Chloride 105 Carbon Dioxide 27 Anion Gap 12 BUN 8 L Creatinine 0.70 Estim Creat Clear Calc 196.0 Estimated GFR > 60 POC Glucose 101 100 Random Glucose 92 Lactic Acid Lactic Acid F/U @ 2Hr Calcium 9.7 Phosphorus 4.2 Magnesium 1.9 Total Bilirubin Direct Bilirubin AST ALT Alkaline Phosphatase Total Creatine Kinase Total Protein Albumin 3.5 Triglycerides Urine Color Urine Appearance Urine pH Ur Specific [place] Urine Protein Urine Glucose (UA) Urine Ketones Urine Blood Urine Nitrite Ur Leukocyte Esterase CSF Tube Number CSF Volume CSF Appearance CSF Color CSF WBC CSF RBC CSF Appearance (b) CSF Glucose CSF Total Protein CSF C.neoform/gat PCR CSF CMV DNA (PCR) CSF Enterovirus (PCR) CSF E. coli K1 (PCR) CSF H. influenzae (PCR) CSF HSV I (PCR) CSF HSV II (PCR) CSF HHV 6 (PCR) CSF L.monocytogenes PCR CSF N. meningitidis PCR CSF Parechovirus (PCR) CSF S. agalactiae (PCR) CSF S. pneumoniae (PCR) CSF VZV (PCR) Random Vancomycin T.pallidum Ab (EIA) A.phagocytophil DNA PCR Babesia microti DNA PCR Borrelia sp DNA (PCR) Borrelia miyamotoi (PCR) E.chaffeensis DNA (PCR) HIV 1&2 Ab/P24 Ag 4thGn Influenza Type A (PCR) Influenza Type B (PCR) RSV RNA Qual (PCR) SARS-CoV-2 RNA (RT-PCR) Tick-borne Disease PCR 12/13/24 12/14/24 12/14/24 23:57 05:34 07:00 WBC RBC Hgb Hct MCV MCH MCHC RDW Plt Count MPV Immature Gran % (Auto) Neut % (Auto) Lymph % (Auto) [place] % (Auto) Eos % (Auto) Baso % (Auto) Lymph # (Auto) [place] # (Auto) Eos # (Auto) Baso # (Auto) Abs Immat Gran (auto) Absolute Neuts (auto) Absolute Nucleated RBC Nucleated RBC % (auto) Hold Purple Top SEE NOTE D-Dimer High Sensitivty VBG pH VBG pCO2 VBG pO2 VBG HCO3 VBG O2 Saturation VBG Base Excess Sodium 140 Potassium 4.1 Chloride 106 Carbon Dioxide 27 Anion Gap 11 L BUN 11 Creatinine 0.75 Estim Creat Clear Calc 182.9 Estimated GFR > 60 POC Glucose 88 102 Random Glucose 92 Lactic Acid Lactic Acid F/U @ 2Hr Calcium 9.9 Phosphorus 4.4 Magnesium 1.9 Total Bilirubin Direct Bilirubin AST ALT Alkaline Phosphatase Total Creatine Kinase Total Protein Albumin 3.8 Triglycerides Urine Color Urine Appearance Urine pH Ur Specific [place] Urine Protein Urine Glucose (UA) Urine Ketones Urine Blood Urine Nitrite Ur Leukocyte Esterase CSF Tube Number CSF Volume CSF Appearance CSF Color CSF WBC CSF RBC CSF Appearance (b) CSF Glucose CSF Total Protein CSF C.neoform/gat PCR CSF CMV DNA (PCR) CSF Enterovirus (PCR) CSF E. coli K1 (PCR) CSF H. influenzae (PCR) CSF HSV I (PCR) CSF HSV II (PCR) CSF HHV 6 (PCR) CSF L.monocytogenes PCR CSF N. meningitidis PCR CSF Parechovirus (PCR) CSF S. agalactiae (PCR) CSF S. pneumoniae (PCR) CSF VZV (PCR) Random Vancomycin T.pallidum Ab (EIA) A.phagocytophil DNA PCR Babesia microti DNA PCR Borrelia sp DNA (PCR) Borrelia miyamotoi (PCR) E.chaffeensis DNA (PCR) HIV 1&2 Ab/P24 Ag 4thGn Influenza Type A (PCR) Influenza Type B (PCR) RSV RNA Qual (PCR) SARS-CoV-2 RNA (RT-PCR) Tick-borne Disease PCR Airway Mallampati Class: III TM Dist: >3cm Neck ROM: Full Assessment and Plan Assessment Anesthesia Assessment: Anesthesia Plan Discussed and Chart Reviewed Final Anesthetic Review Family History of Problems with Anesthesia: No History of Problems with Anesthesia: No NPO: Yes ASA Class: III Final Preanesthetic Review: No Changes in Pt Med Stat, Meds/Allgs Chart Reviewed, Consent Obtained/Reviewed and Anes Risks/Benef Reviewed
[2024-12-14] MEDS: Lactated Ringers 1,000 ML 100 ML IVCONT (10:57)
--- NOTE | 2024-12-14 11:00 | HO.ANESPROP2 ---
[facility] Active Problems Active Problems: All Active Problems Fever, unknown origin (Acute) Catatonia (Acute) Schizophrenia (Acute) Autism spectrum disorder (Acute) Psychiatric illness (Acute) Past Medical History Medical History Fever, unknown origin Autism spectrum disorder Family History Family history of problems with anesthesia: No Surgical History History of Problems with Anesthesia: No Social History Social History Household Members: None Household Members Other:: pt is admit fr M# for catatonia, not response to questions, JULIO CESAR Housing: Homeless Do you presently have visiting nurse or other home services: No Comment: 1:1 sitter at bedside Patient Tobacco Use Status: Never used Tobacco e-Cigarette/Vaping Use: Never Used Second Hand Smoke Exposure: No Use of substances other than those prescribed or required for medical reasons: Unable to respond Currently Displaying Signs/Symptoms of Drug Intoxication Withdrawal: No Advance Directives: No Advance Directives Information Provided: No Do you have a plan to hurt others: No Plan service: No Sexual orientation: Decline to Answer Meds Allergies Allergy/AdvReac Type Severity Reaction Status Date / Time No Known Allergies Allergy Verified 11/28/24 13:56 Active Medications: Current Medications Acetaminophen (Acetaminophen Supp 650 Mg Supp.Rect) 650 mg [place] Q6H PRN PRN Reason: Fever Last Admin: 12/11/24 05:47 Dose: 650 mg Amoxicillin/Clavulanate Potassium (Amoxicillin/Potassium Clav 875 Mg Tablet) 875 mg PO Q12H [facility] Last Admin: 12/14/24 07:45 Dose: 875 mg Diazepam (Diazepam 10 Mg/2 Ml Cartridge) 5 mg IVPUSH TID [facility] Last Admin: 12/13/24 08:34 Dose: 5 mg Diazepam (Diazepam 10 Mg/2 Ml Cartridge) 5 mg IVPUSH DAILY PRN PRN Reason: diazepam withdrawal Enoxaparin Sodium (Enoxaparin Sodium 40 Mg/0.4 Ml Syringe) 40 mg SUBCUT Q24H [facility] Last Admin: 12/13/24 14:37 Dose: 40 mg Erythromycin (Erythromycin Base 0.5% Oph Oin 1 Gm Tube) 1 cm EYE-BOTH QID [facility] Last Admin: 12/14/24 07:45 Dose: Not Given Lactated Ringer's (Lr) 1,000 mls @ 100 mls/hr IVCONT .Q10H [facility] Last Admin: 12/14/24 10:57 Dose: 100 mls/hr Naloxone HCl (Naloxone Hcl 0.4 Mg/Ml Vial) 0.04 mg IVPUSH Q5M PRN PRN Reason: Excessive sedation or RR < 8 Sodium Chloride (0.9 % Sodium Chloride Flush 3 Ml Syringe) 3 ml IVFLUSH QSHIFT [facility] Last Admin: 12/14/24 07:45 Dose: 3 ml Home Medications ?Medication ?Instructions ?Recorded ?Confirmed ?Last Taken ?Type No Known Home Meds 12/04/24 12/04/24 Unknown History Exam Height,Weight and Vital Signs: Height 6 ft Weight 96.5 kg Last Vital Signs Temp 98.5 F 12/14/24 10:55 Pulse 82 12/14/24 10:55 Resp 19 12/14/24 10:55 BP 122/69 12/14/24 10:55 Pulse Ox 99 12/14/24 10:55 O2 Del Method Room Air 12/14/24 10:55 O2 Flow Rate 2 12/12/24 13:15 Pertinent Lab Results Pertinent Lab Results: Laboratory Tests 12/04/24 12/04/24 12/04/24 18:42 18:53 19:05 WBC 5.8 RBC 5.22 Hgb 15.6 Hct 46.5 MCV 89.1 MCH 29.9 MCHC 33.5 RDW 12.2 Plt Count 282 MPV 9.8 Immature Gran % (Auto) 0.2 Neut % (Auto) 48.3 Lymph % (Auto) 39.2 [place] % (Auto) 10.4 Eos % (Auto) 1.0 Baso % (Auto) 0.9 Lymph # (Auto) 2.3 [place] # (Auto) 0.6 Eos # (Auto) 0.1 Baso # (Auto) 0.1 Abs Immat Gran (auto) 0.01 Absolute Neuts (auto) 2.8 Absolute Nucleated RBC 0.000 Nucleated RBC % (auto) 0.0 Hold Purple Top D-Dimer High Sensitivty VBG pH 7.40 VBG pCO2 48 VBG pO2 41 VBG HCO3 30 H VBG O2 Saturation 65.0 VBG Base Excess 4.8 Sodium 143 Potassium 4.2 Chloride 106 Carbon Dioxide 26 Anion Gap 15 BUN 17 H Creatinine 1.03 Estim Creat Clear Calc 133.2 Estimated GFR > 60 POC Glucose Random Glucose 86 Lactic Acid Lactic Acid F/U @ 2Hr Calcium 10.6 H Phosphorus Magnesium Total Bilirubin 1.2 H Direct Bilirubin 0.4 AST 37 ALT 24 Alkaline Phosphatase 48 Total Creatine Kinase 574 H Total Protein 8.1 H Albumin 4.6 Triglycerides Urine Color Urine Appearance Urine pH Ur Specific [place] Urine Protein Urine Glucose (UA) Urine Ketones Urine Blood Urine Nitrite Ur Leukocyte Esterase CSF Tube Number CSF Volume CSF Appearance CSF Color CSF WBC CSF RBC CSF Appearance (b) CSF Glucose CSF Total Protein CSF C.neoform/gat PCR CSF CMV DNA (PCR) CSF Enterovirus (PCR) CSF E. coli K1 (PCR) CSF H. influenzae (PCR) CSF HSV I (PCR) CSF HSV II (PCR) CSF HHV 6 (PCR) CSF L.monocytogenes PCR CSF N. meningitidis PCR CSF Parechovirus (PCR) CSF S. agalactiae (PCR) CSF S. pneumoniae (PCR) CSF VZV (PCR) Random Vancomycin T.pallidum Ab (EIA) A.phagocytophil DNA PCR Babesia microti DNA PCR Borrelia sp DNA (PCR) Borrelia miyamotoi (PCR) E.chaffeensis DNA (PCR) HIV 1&2 Ab/P24 Ag 4thGn Influenza Type A (PCR) Influenza Type B (PCR) RSV RNA Qual (PCR) SARS-CoV-2 RNA (RT-PCR) Tick-borne Disease PCR 12/05/24 12/05/24 12/05/24 05:50 05:52 10:23 WBC 3.8 L RBC 4.46 L Hgb 13.0 L Hct 40.5 L MCV 90.8 MCH 29.1 MCHC 32.1 RDW 12.0 Plt Count 260 MPV 10.0 Immature Gran % (Auto) 0.3 Neut % (Auto) 37.7 L Lymph % (Auto) 47.6 H [place] % (Auto) 10.4 Eos % (Auto) 2.7 Baso % (Auto) 1.3 Lymph # (Auto) 1.8 [place] # (Auto) 0.4 Eos # (Auto) 0.1 Baso # (Auto) 0.1 Abs Immat Gran (auto) 0.01 Absolute Neuts (auto) 1.4 L Absolute Nucleated RBC 0.000 Nucleated RBC % (auto) 0.0 Hold Purple Top D-Dimer High Sensitivty VBG pH 7.46 H VBG pCO2 42 VBG pO2 68 VBG HCO3 30 H VBG O2 Saturation 93.0 VBG Base Excess 6.3 Sodium 143 Potassium 3.8 Chloride 110 H Carbon Dioxide 26 Anion Gap 11 L BUN 13 Creatinine 0.89 Estim Creat Clear Calc 154.1 Estimated GFR > 60 POC Glucose Random Glucose 114 Lactic Acid Lactic Acid F/U @ 2Hr Calcium 9.2 D Phosphorus 3.2 Magnesium 2.0 Total Bilirubin 0.9 Direct Bilirubin AST 35 ALT 23 Alkaline Phosphatase 38 L Total Creatine Kinase 502 H Total Protein 6.4 L Albumin 3.8 Triglycerides 53 Urine Color Urine Appearance Urine pH Ur Specific [place] Urine Protein Urine Glucose (UA) Urine Ketones Urine Blood Urine Nitrite Ur Leukocyte Esterase CSF Tube Number CSF Volume CSF Appearance CSF Color CSF WBC CSF RBC CSF Appearance (b) CSF Glucose CSF Total Protein CSF C.neoform/gat PCR CSF CMV DNA (PCR) CSF Enterovirus (PCR) CSF E. coli K1 (PCR) CSF H. influenzae (PCR) CSF HSV I (PCR) CSF HSV II (PCR) CSF HHV 6 (PCR) CSF L.monocytogenes PCR CSF N. meningitidis PCR CSF Parechovirus (PCR) CSF S. agalactiae (PCR) CSF S. pneumoniae (PCR) CSF VZV (PCR) Random Vancomycin T.pallidum Ab (EIA) A.phagocytophil DNA PCR Babesia microti DNA PCR Borrelia sp DNA (PCR) Borrelia miyamotoi (PCR) E.chaffeensis DNA (PCR) HIV 1&2 Ab/P24 Ag 4thGn Influenza Type A (PCR) Influenza Type B (PCR) RSV RNA Qual (PCR) SARS-CoV-2 RNA (RT-PCR) Tick-borne Disease PCR 12/06/24 12/06/24 12/07/24 05:29 05:30 05:09 WBC 4.3 L 5.0 RBC 4.17 L 4.48 L Hgb 12.6 L 13.5 L Hct 37.7 L 39.8 L MCV 90.4 88.8 MCH 30.2 30.1 MCHC 33.4 33.9 RDW 11.9 11.7 Plt Count 233 234 MPV 9.8 9.6 Immature Gran % (Auto) 0.2 0.2 Neut % (Auto) 39.5 L 45.7 Lymph % (Auto) 48.5 H 42.9 H [place] % (Auto) 8.5 7.8 Eos % (Auto) 2.6 2.6 Baso % (Auto) 0.7 0.8 Lymph # (Auto) 2.1 2.1 [place] # (Auto) 0.4 0.4 Eos # (Auto) 0.1 0.1 Baso # (Auto) 0.0 0.0 Abs Immat Gran (auto) 0.01 0.01 Absolute Neuts (auto) 1.7 L 2.3 Absolute Nucleated RBC 0.000 0.000 Nucleated RBC % (auto) 0.0 0.0 Hold Purple Top D-Dimer High Sensitivty VBG pH 7.42 VBG pCO2 43 VBG pO2 95 VBG HCO3 28 H VBG O2 Saturation 98.0 VBG Base Excess 3.9 Sodium 143 140 Potassium 3.9 4.0 Chloride 111 H 108 Carbon Dioxide 25 25 Anion Gap 11 L 11 L BUN 9 10 Creatinine 0.84 0.77 Estim Creat Clear Calc 163.3 178.1 Estimated GFR > 60 > 60 POC Glucose Random Glucose 100 96 Lactic Acid Lactic Acid F/U @ 2Hr Calcium 9.3 9.5 Phosphorus 3.6 3.8 Magnesium 2.0 2.1 Total Bilirubin 0.8 Direct Bilirubin AST 31 ALT 17 Alkaline Phosphatase 36 L Total Creatine Kinase Total Protein 6.2 L Albumin 3.6 3.7 Triglycerides Urine Color Urine Appearance Urine pH Ur Specific [place] Urine Protein Urine Glucose (UA) Urine Ketones Urine Blood Urine Nitrite Ur Leukocyte Esterase CSF Tube Number CSF Volume CSF Appearance CSF Color CSF WBC CSF RBC CSF Appearance (b) CSF Glucose CSF Total Protein CSF C.neoform/gat PCR CSF CMV DNA (PCR) CSF Enterovirus (PCR) CSF E. coli K1 (PCR) CSF H. influenzae (PCR) CSF HSV I (PCR) CSF HSV II (PCR) CSF HHV 6 (PCR) CSF L.monocytogenes PCR CSF N. meningitidis PCR CSF Parechovirus (PCR) CSF S. agalactiae (PCR) CSF S. pneumoniae (PCR) CSF VZV (PCR) Random Vancomycin T.pallidum Ab (EIA) A.phagocytophil DNA PCR Babesia microti DNA PCR Borrelia sp DNA (PCR) Borrelia miyamotoi (PCR) E.chaffeensis DNA (PCR) HIV 1&2 Ab/P24 Ag 4thGn Influenza Type A (PCR) Influenza Type B (PCR) RSV RNA Qual (PCR) SARS-CoV-2 RNA (RT-PCR) Tick-borne Disease PCR 12/08/24 12/08/24 12/09/24 09:54 21:45 00:42 WBC RBC Hgb Hct MCV MCH MCHC RDW Plt Count MPV Immature Gran % (Auto) Neut % (Auto) Lymph % (Auto) [place] % (Auto) Eos % (Auto) Baso % (Auto) Lymph # (Auto) [place] # (Auto) Eos # (Auto) Baso # (Auto) Abs Immat Gran (auto) Absolute Neuts (auto) Absolute Nucleated RBC Nucleated RBC % (auto) Hold Purple Top D-Dimer High Sensitivty 874 VBG pH VBG pCO2 VBG pO2 VBG HCO3 VBG O2 Saturation VBG Base Excess Sodium 137 Potassium 4.1 Chloride 105 Carbon Dioxide 25 Anion Gap 11 L BUN 9 Creatinine 0.80 Estim Creat Clear Calc 171.5 Estimated GFR > 60 POC Glucose Random Glucose 94 Lactic Acid 3.2 H* Lactic Acid F/U @ 2Hr Calcium 9.7 Phosphorus Magnesium Total Bilirubin 0.7 Direct Bilirubin AST 25 ALT 22 Alkaline Phosphatase 44 Total Creatine Kinase Total Protein 7.1 Albumin 3.9 Triglycerides Urine Color Urine Appearance Urine pH Ur Specific [place] Urine Protein Urine Glucose (UA) Urine Ketones Urine Blood Urine Nitrite Ur Leukocyte Esterase CSF Tube Number CSF Volume CSF Appearance CSF Color CSF WBC CSF RBC CSF Appearance (b) CSF Glucose CSF Total Protein CSF C.neoform/gat PCR CSF CMV DNA (PCR) CSF Enterovirus (PCR) CSF E. coli K1 (PCR) CSF H. influenzae (PCR) CSF HSV I (PCR) CSF HSV II (PCR) CSF HHV 6 (PCR) CSF L.monocytogenes PCR CSF N. meningitidis PCR CSF Parechovirus (PCR) CSF S. agalactiae (PCR) CSF S. pneumoniae (PCR) CSF VZV (PCR) Random Vancomycin T.pallidum Ab (EIA) A.phagocytophil DNA PCR Babesia microti DNA PCR Borrelia sp DNA (PCR) Borrelia miyamotoi (PCR) E.chaffeensis DNA (PCR) HIV 1&2 Ab/P24 Ag 4thGn Influenza Type A (PCR) Influenza Type B (PCR) RSV RNA Qual (PCR) SARS-CoV-2 RNA (RT-PCR) Tick-borne Disease PCR 12/09/24 12/09/24 12/09/24 01:17 03:47 03:49 WBC RBC Hgb Hct MCV MCH MCHC RDW Plt Count MPV Immature Gran % (Auto) Neut % (Auto) Lymph % (Auto) [place] % (Auto) Eos % (Auto) Baso % (Auto) Lymph # (Auto) [place] # (Auto) Eos # (Auto) Baso # (Auto) Abs Immat Gran (auto) Absolute Neuts (auto) Absolute Nucleated RBC Nucleated RBC % (auto) Hold Purple Top D-Dimer High Sensitivty VBG pH VBG pCO2 VBG pO2 VBG HCO3 VBG O2 Saturation VBG Base Excess Sodium Potassium Chloride Carbon Dioxide Anion Gap BUN Creatinine Estim Creat Clear Calc Estimated GFR POC Glucose 91 Random Glucose Lactic Acid Lactic Acid F/U @ 2Hr Cancelled Calcium Phosphorus Magnesium Total Bilirubin Direct Bilirubin AST ALT Alkaline Phosphatase Total Creatine Kinase Total Protein Albumin Triglycerides Urine Color Yellow Urine Appearance Clear Urine pH 8.5 Ur Specific [place] 1.015 Urine Protein Negative Urine Glucose (UA) Negative Urine Ketones Negative Urine Blood Negative Urine Nitrite Negative Ur Leukocyte Esterase Negative CSF Tube Number CSF Volume CSF Appearance CSF Color CSF WBC CSF RBC CSF Appearance (b) CSF Glucose CSF Total Protein CSF C.neoform/gat PCR CSF CMV DNA (PCR) CSF Enterovirus (PCR) CSF E. coli K1 (PCR) CSF H. influenzae (PCR) CSF HSV I (PCR) CSF HSV II (PCR) CSF HHV 6 (PCR) CSF L.monocytogenes PCR CSF N. meningitidis PCR CSF Parechovirus (PCR) CSF S. agalactiae (PCR) CSF S. pneumoniae (PCR) CSF VZV (PCR) Random Vancomycin T.pallidum Ab (EIA) A.phagocytophil DNA PCR Babesia microti DNA PCR Borrelia sp DNA (PCR) Borrelia miyamotoi (PCR) E.chaffeensis DNA (PCR) HIV 1&2 Ab/P24 Ag 4thGn Influenza Type A (PCR) Influenza Type B (PCR) RSV RNA Qual (PCR) SARS-CoV-2 RNA (RT-PCR) Tick-borne Disease PCR 12/09/24 12/09/24 12/09/24 06:04 12:41 12:42 WBC RBC Hgb Hct MCV MCH MCHC RDW Plt Count MPV Immature Gran % (Auto) Neut % (Auto) Lymph % (Auto) [place] % (Auto) Eos % (Auto) Baso % (Auto) Lymph # (Auto) [place] # (Auto) Eos # (Auto) Baso # (Auto) Abs Immat Gran (auto) Absolute Neuts (auto) Absolute Nucleated RBC Nucleated RBC % (auto) Hold Purple Top D-Dimer High Sensitivty VBG pH VBG pCO2 VBG pO2 VBG HCO3 VBG O2 Saturation VBG Base Excess Sodium Potassium Chloride Carbon Dioxide Anion Gap BUN Creatinine Estim Creat Clear Calc Estimated GFR POC Glucose 81 95 Random Glucose Lactic Acid Lactic Acid F/U @ 2Hr Calcium Phosphorus Magnesium Total Bilirubin Direct Bilirubin AST ALT Alkaline Phosphatase Total Creatine Kinase Total Protein Albumin Triglycerides Urine Color Urine Appearance Urine pH Ur Specific [place] Urine Protein Urine Glucose (UA) Urine Ketones Urine Blood Urine Nitrite Ur Leukocyte Esterase CSF Tube Number CSF Volume CSF Appearance CSF Color CSF WBC CSF RBC CSF Appearance (b) CSF Glucose CSF Total Protein CSF C.neoform/gat PCR CSF CMV DNA (PCR) CSF Enterovirus (PCR) CSF E. coli K1 (PCR) CSF H. influenzae (PCR) CSF HSV I (PCR) CSF HSV II (PCR) CSF HHV 6 (PCR) CSF L.monocytogenes PCR CSF N. meningitidis PCR CSF Parechovirus (PCR) CSF S. agalactiae (PCR) CSF S. pneumoniae (PCR) CSF VZV (PCR) Random Vancomycin T.pallidum Ab (EIA) A.phagocytophil DNA PCR Babesia microti DNA PCR Borrelia sp DNA (PCR) Borrelia miyamotoi (PCR) E.chaffeensis DNA (PCR) HIV 1&2 Ab/P24 Ag 4thGn Influenza Type A (PCR) NEGATIVE Influenza Type B (PCR) NEGATIVE RSV RNA Qual (PCR) NEGATIVE SARS-CoV-2 RNA (RT-PCR) NEGATIVE Tick-borne Disease PCR 12/09/24 12/09/24 12/09/24 13:20 14:49 18:49 WBC 15.1 H RBC 4.61 Hgb 13.7 L Hct 39.3 L MCV 85.2 MCH 29.7 MCHC 34.9 RDW 11.8 Plt Count 177 MPV 11.0 Immature Gran % (Auto) Neut % (Auto) Lymph % (Auto) [place] % (Auto) Eos % (Auto) Baso % (Auto) Lymph # (Auto) [place] # (Auto) Eos # (Auto) Baso # (Auto) Abs Immat Gran (auto) Absolute Neuts (auto) Absolute Nucleated RBC 0.000 Nucleated RBC % (auto) 0.0 Hold Purple Top D-Dimer High Sensitivty VBG pH VBG pCO2 VBG pO2 VBG HCO3 VBG O2 Saturation VBG Base Excess Sodium 137 136 Potassium 4.8 5.2 H Chloride 106 106 Carbon Dioxide 20 L 19 L Anion Gap 16 16 BUN 10 10 Creatinine 0.74 0.76 Estim Creat Clear Calc 185.4 180.5 Estimated GFR > 60 > 60 POC Glucose 84 Random Glucose 101 95 Lactic Acid Lactic Acid F/U @ 2Hr Calcium 9.4 9.2 Phosphorus 2.7 2.9 Magnesium 1.8 1.8 Total Bilirubin Direct Bilirubin AST ALT Alkaline Phosphatase Total Creatine Kinase 79 Total Protein Albumin 3.6 Triglycerides Urine Color Urine Appearance Urine pH Ur Specific [place] Urine Protein Urine Glucose (UA) Urine Ketones Urine Blood Urine Nitrite Ur Leukocyte Esterase CSF Tube Number CSF Volume CSF Appearance CSF Color CSF WBC CSF RBC CSF Appearance (b) CSF Glucose CSF Total Protein CSF C.neoform/gat PCR CSF CMV DNA (PCR) CSF Enterovirus (PCR) CSF E. coli K1 (PCR) CSF H. influenzae (PCR) CSF HSV I (PCR) CSF HSV II (PCR) CSF HHV 6 (PCR) CSF L.monocytogenes PCR CSF N. meningitidis PCR CSF Parechovirus (PCR) CSF S. agalactiae (PCR) CSF S. pneumoniae (PCR) CSF VZV (PCR) Random Vancomycin T.pallidum Ab (EIA) A.phagocytophil DNA PCR Babesia microti DNA PCR Borrelia sp DNA (PCR) Borrelia miyamotoi (PCR) E.chaffeensis DNA (PCR) HIV 1&2 Ab/P24 Ag 4thGn Influenza Type A (PCR) Influenza Type B (PCR) RSV RNA Qual (PCR) SARS-CoV-2 RNA (RT-PCR) Tick-borne Disease PCR 12/09/24 12/10/24 12/10/24 19:52 00:13 06:11 WBC RBC Hgb Hct MCV MCH MCHC RDW Plt Count MPV Immature Gran % (Auto) Neut % (Auto) Lymph % (Auto) [place] % (Auto) Eos % (Auto) Baso % (Auto) Lymph # (Auto) [place] # (Auto) Eos # (Auto) Baso # (Auto) Abs Immat Gran (auto) Absolute Neuts (auto) Absolute Nucleated RBC Nucleated RBC % (auto) Hold Purple Top D-Dimer High Sensitivty VBG pH VBG pCO2 VBG pO2 VBG HCO3 VBG O2 Saturation VBG Base Excess Sodium Potassium Chloride Carbon Dioxide Anion Gap BUN Creatinine Estim Creat Clear Calc Estimated GFR POC Glucose 78 110 Random Glucose Lactic Acid Lactic Acid F/U @ 2Hr Calcium Phosphorus Magnesium Total Bilirubin Direct Bilirubin AST ALT Alkaline Phosphatase Total Creatine Kinase Total Protein Albumin Triglycerides Urine Color Urine Appearance Urine pH Ur Specific [place] Urine Protein Urine Glucose (UA) Urine Ketones Urine Blood Urine Nitrite Ur Leukocyte Esterase CSF Tube Number CSF Volume CSF Appearance CSF Color CSF WBC CSF RBC CSF Appearance (b) CSF Glucose CSF Total Protein CSF C.neoform/gat PCR CSF CMV DNA (PCR) CSF Enterovirus (PCR) CSF E. coli K1 (PCR) CSF H. influenzae (PCR) CSF HSV I (PCR) CSF HSV II (PCR) CSF HHV 6 (PCR) CSF L.monocytogenes PCR CSF N. meningitidis PCR CSF Parechovirus (PCR) CSF S. agalactiae (PCR) CSF S. pneumoniae (PCR) CSF VZV (PCR) Random Vancomycin T.pallidum Ab (EIA) Nonreactive A.phagocytophil DNA PCR NOT DETECTED Babesia microti DNA PCR NOT DETECTED Borrelia sp DNA (PCR) NOT DETECTED Borrelia miyamotoi (PCR) NOT DETECTED E.chaffeensis DNA (PCR) NOT DETECTED HIV 1&2 Ab/P24 Ag 4thGn Nonreactive Influenza Type A (PCR) Influenza Type B (PCR) RSV RNA Qual (PCR) SARS-CoV-2 RNA (RT-PCR) Tick-borne Disease PCR SEE NOTE 12/10/24 12/10/24 12/10/24 08:23 11:44 11:44 WBC 8.9 RBC 4.12 L Hgb 12.3 L Hct 35.5 L MCV 86.2 MCH 29.9 MCHC 34.6 RDW 11.9 Plt Count 165 MPV 11.3 Immature Gran % (Auto) Neut % (Auto) Lymph % (Auto) [place] % (Auto) Eos % (Auto) Baso % (Auto) Lymph # (Auto) [place] # (Auto) Eos # (Auto) Baso # (Auto) Abs Immat Gran (auto) Absolute Neuts (auto) Absolute Nucleated RBC 0.000 Nucleated RBC % (auto) 0.0 Hold Purple Top D-Dimer High Sensitivty VBG pH VBG pCO2 VBG pO2 VBG HCO3 VBG O2 Saturation VBG Base Excess Sodium 137 Potassium 4.4 Chloride 107 Carbon Dioxide 20 L Anion Gap 14 BUN 9 Creatinine 0.73 Estim Creat Clear Calc 187.9 Estimated GFR > 60 POC Glucose Random Glucose 102 Lactic Acid Lactic Acid F/U @ 2Hr Calcium 9.0 Phosphorus 2.7 Magnesium 1.9 Total Bilirubin Direct Bilirubin AST ALT Alkaline Phosphatase Total Creatine Kinase Total Protein Albumin 3.3 L Triglycerides Urine Color Urine Appearance Urine pH Ur Specific [place] Urine Protein Urine Glucose (UA) Urine Ketones Urine Blood Urine Nitrite Ur Leukocyte Esterase CSF Tube Number 3 1 CSF Volume CSF Appearance CSF Color CSF WBC CSF RBC CSF Appearance (b) CSF Glucose CSF Total Protein CSF C.neoform/gat PCR CSF CMV DNA (PCR) CSF Enterovirus (PCR) CSF E. coli K1 (PCR) CSF H. influenzae (PCR) CSF HSV I (PCR) CSF HSV II (PCR) CSF HHV 6 (PCR) CSF L.monocytogenes PCR CSF N. meningitidis PCR CSF Parechovirus (PCR) CSF S. agalactiae (PCR) CSF S. pneumoniae (PCR) CSF VZV (PCR) Random Vancomycin T.pallidum Ab (EIA) A.phagocytophil DNA PCR Babesia microti DNA PCR Borrelia sp DNA (PCR) Borrelia miyamotoi (PCR) E.chaffeensis DNA (PCR) HIV 1&2 Ab/P24 Ag 4thGn Influenza Type A (PCR) Influenza Type B (PCR) RSV RNA Qual (PCR) SARS-CoV-2 RNA (RT-PCR) Tick-borne Disease PCR 12/10/24 12/10/24 12/10/24 11:44 11:44 11:44 WBC RBC Hgb Hct MCV MCH MCHC RDW Plt Count MPV Immature Gran % (Auto) Neut % (Auto) Lymph % (Auto) [place] % (Auto) Eos % (Auto) Baso % (Auto) Lymph # (Auto) [place] # (Auto) Eos # (Auto) Baso # (Auto) Abs Immat Gran (auto) Absolute Neuts (auto) Absolute Nucleated RBC Nucleated RBC % (auto) Hold Purple Top D-Dimer High Sensitivty VBG pH VBG pCO2 VBG pO2 VBG HCO3 VBG O2 Saturation VBG Base Excess Sodium Potassium Chloride Carbon Dioxide Anion Gap BUN Creatinine Estim Creat Clear Calc Estimated GFR POC Glucose Random Glucose Lactic Acid Lactic Acid F/U @ 2Hr Calcium Phosphorus Magnesium Total Bilirubin Direct Bilirubin AST ALT Alkaline Phosphatase Total Creatine Kinase Total Protein Albumin Triglycerides Urine Color Urine Appearance Urine pH Ur Specific [place] Urine Protein Urine Glucose (UA) Urine Ketones Urine Blood Urine Nitrite Ur Leukocyte Esterase CSF Tube Number 4 CSF Volume 4.0 4.0 CSF Appearance CLEAR CLEAR CSF Color COLORLESS CSF WBC CSF RBC CSF Appearance (b) CSF Glucose CSF Total Protein CSF C.neoform/gat PCR CSF CMV DNA (PCR) CSF Enterovirus (PCR) CSF E. coli K1 (PCR) CSF H. influenzae (PCR) CSF HSV I (PCR) CSF HSV II (PCR) CSF HHV 6 (PCR) CSF L.monocytogenes PCR CSF N. meningitidis PCR CSF Parechovirus (PCR) CSF S. agalactiae (PCR) CSF S. pneumoniae (PCR) CSF VZV (PCR) Random Vancomycin T.pallidum Ab (EIA) A.phagocytophil DNA PCR Babesia microti DNA PCR Borrelia sp DNA (PCR) Borrelia miyamotoi (PCR) E.chaffeensis DNA (PCR) HIV 1&2 Ab/P24 Ag 4thGn Influenza Type A (PCR) Influenza Type B (PCR) RSV RNA Qual (PCR) SARS-CoV-2 RNA (RT-PCR) Tick-borne Disease PCR 12/10/24 12/10/24 12/10/24 11:44 11:44 11:44 WBC RBC Hgb Hct MCV MCH MCHC RDW Plt Count MPV Immature Gran % (Auto) Neut % (Auto) Lymph % (Auto) [place] % (Auto) Eos % (Auto) Baso % (Auto) Lymph # (Auto) [place] # (Auto) Eos # (Auto) Baso # (Auto) Abs Immat Gran (auto) Absolute Neuts (auto) Absolute Nucleated RBC Nucleated RBC % (auto) Hold Purple Top D-Dimer High Sensitivty VBG pH VBG pCO2 VBG pO2 VBG HCO3 VBG O2 Saturation VBG Base Excess Sodium Potassium Chloride Carbon Dioxide Anion Gap BUN Creatinine Estim Creat Clear Calc Estimated GFR POC Glucose Random Glucose Lactic Acid Lactic Acid F/U @ 2Hr Calcium Phosphorus Magnesium Total Bilirubin Direct Bilirubin AST ALT Alkaline Phosphatase Total Creatine Kinase Total Protein Albumin Triglycerides Urine Color Urine Appearance Urine pH Ur Specific [place] Urine Protein Urine Glucose (UA) Urine Ketones Urine Blood Urine Nitrite Ur Leukocyte Esterase CSF Tube Number CSF Volume CSF Appearance CSF Color COLORLESS CSF WBC 0 0 CSF RBC 346 25 CSF Appearance (b) Clear, Colorless CSF Glucose 64 CSF Total Protein 20.3 CSF C.neoform/gat PCR Not Detected CSF CMV DNA (PCR) Not Detected CSF Enterovirus (PCR) Not Detected CSF E. coli K1 (PCR) Not Detected CSF H. influenzae (PCR) Not Detected CSF HSV I (PCR) Not Detected CSF HSV II (PCR) Not Detected CSF HHV 6 (PCR) Not Detected CSF L.monocytogenes PCR Not Detected CSF N. meningitidis PCR Not Detected CSF Parechovirus (PCR) Not Detected CSF S. agalactiae (PCR) Not Detected CSF S. pneumoniae (PCR) Not Detected CSF VZV (PCR) Not Detected Random Vancomycin T.pallidum Ab (EIA) A.phagocytophil DNA PCR Babesia microti DNA PCR Borrelia sp DNA (PCR) Borrelia miyamotoi (PCR) E.chaffeensis DNA (PCR) HIV 1&2 Ab/P24 Ag 4thGn Influenza Type A (PCR) Influenza Type B (PCR) RSV RNA Qual (PCR) SARS-CoV-2 RNA (RT-PCR) Tick-borne Disease PCR 12/10/24 12/10/24 12/10/24 12:11 12:57 18:30 WBC RBC Hgb Hct MCV MCH MCHC RDW Plt Count MPV Immature Gran % (Auto) Neut % (Auto) Lymph % (Auto) [place] % (Auto) Eos % (Auto) Baso % (Auto) Lymph # (Auto) [place] # (Auto) Eos # (Auto) Baso # (Auto) Abs Immat Gran (auto) Absolute Neuts (auto) Absolute Nucleated RBC Nucleated RBC % (auto) Hold Purple Top D-Dimer High Sensitivty VBG pH VBG pCO2 VBG pO2 VBG HCO3 VBG O2 Saturation VBG Base Excess Sodium Potassium Chloride Carbon Dioxide Anion Gap BUN Creatinine Estim Creat Clear Calc Estimated GFR POC Glucose 87 86 Random Glucose Lactic Acid Lactic Acid F/U @ 2Hr Calcium Phosphorus Magnesium Total Bilirubin Direct Bilirubin AST ALT Alkaline Phosphatase Total Creatine Kinase Total Protein Albumin Triglycerides Urine Color Urine Appearance Urine pH Ur Specific [place] Urine Protein Urine Glucose (UA) Urine Ketones Urine Blood Urine Nitrite Ur Leukocyte Esterase CSF Tube Number CSF Volume CSF Appearance CSF Color CSF WBC CSF RBC CSF Appearance (b) CSF Glucose CSF Total Protein CSF C.neoform/gat PCR CSF CMV DNA (PCR) CSF Enterovirus (PCR) CSF E. coli K1 (PCR) CSF H. influenzae (PCR) CSF HSV I (PCR) CSF HSV II (PCR) CSF HHV 6 (PCR) CSF L.monocytogenes PCR CSF N. meningitidis PCR CSF Parechovirus (PCR) CSF S. agalactiae (PCR) CSF S. pneumoniae (PCR) CSF VZV (PCR) Random Vancomycin 6.3 L T.pallidum Ab (EIA) A.phagocytophil DNA PCR Babesia microti DNA PCR Borrelia sp DNA (PCR) Borrelia miyamotoi (PCR) E.chaffeensis DNA (PCR) HIV 1&2 Ab/P24 Ag 4thGn Influenza Type A (PCR) Influenza Type B (PCR) RSV RNA Qual (PCR) SARS-CoV-2 RNA (RT-PCR) Tick-borne Disease PCR 12/10/24 12/11/24 12/11/24 23:05 05:32 06:31 WBC RBC Hgb Hct MCV MCH MCHC RDW Plt Count MPV Immature Gran % (Auto) Neut % (Auto) Lymph % (Auto) [place] % (Auto) Eos % (Auto) Baso % (Auto) Lymph # (Auto) [place] # (Auto) Eos # (Auto) Baso # (Auto) Abs Immat Gran (auto) Absolute Neuts (auto) Absolute Nucleated RBC Nucleated RBC % (auto) Hold Purple Top SEE NOTE D-Dimer High Sensitivty VBG pH VBG pCO2 VBG pO2 VBG HCO3 VBG O2 Saturation VBG Base Excess Sodium 140 Potassium 4.2 Chloride 108 Carbon Dioxide 26 Anion Gap 10 L BUN 7 L Creatinine 0.70 Estim Creat Clear Calc 196.0 Estimated GFR > 60 POC Glucose 100 93 Random Glucose 98 Lactic Acid Lactic Acid F/U @ 2Hr Calcium 9.6 D Phosphorus 3.7 Magnesium 2.0 Total Bilirubin Direct Bilirubin AST ALT Alkaline Phosphatase Total Creatine Kinase Total Protein Albumin 3.5 Triglycerides Urine Color Urine Appearance Urine pH Ur Specific [place] Urine Protein Urine Glucose (UA) Urine Ketones Urine Blood Urine Nitrite Ur Leukocyte Esterase CSF Tube Number CSF Volume CSF Appearance CSF Color CSF WBC CSF RBC CSF Appearance (b) CSF Glucose CSF Total Protein CSF C.neoform/gat PCR CSF CMV DNA (PCR) CSF Enterovirus (PCR) CSF E. coli K1 (PCR) CSF H. influenzae (PCR) CSF HSV I (PCR) CSF HSV II (PCR) CSF HHV 6 (PCR) CSF L.monocytogenes PCR CSF N. meningitidis PCR CSF Parechovirus (PCR) CSF S. agalactiae (PCR) CSF S. pneumoniae (PCR) CSF VZV (PCR) Random Vancomycin T.pallidum Ab (EIA) A.phagocytophil DNA PCR Babesia microti DNA PCR Borrelia sp DNA (PCR) Borrelia miyamotoi (PCR) E.chaffeensis DNA (PCR) HIV 1&2 Ab/P24 Ag 4thGn Influenza Type A (PCR) Influenza Type B (PCR) RSV RNA Qual (PCR) SARS-CoV-2 RNA (RT-PCR) Tick-borne Disease PCR 12/11/24 12/11/24 12/11/24 11:28 18:05 20:57 WBC RBC Hgb Hct MCV MCH MCHC RDW Plt Count MPV Immature Gran % (Auto) Neut % (Auto) Lymph % (Auto) [place] % (Auto) Eos % (Auto) Baso % (Auto) Lymph # (Auto) [place] # (Auto) Eos # (Auto) Baso # (Auto) Abs Immat Gran (auto) Absolute Neuts (auto) Absolute Nucleated RBC Nucleated RBC % (auto) Hold Purple Top D-Dimer High Sensitivty VBG pH VBG pCO2 VBG pO2 VBG HCO3 VBG O2 Saturation VBG Base Excess Sodium Potassium Chloride Carbon Dioxide Anion Gap BUN Creatinine Estim Creat Clear Calc Estimated GFR POC Glucose 92 105 88 Random Glucose Lactic Acid Lactic Acid F/U @ 2Hr Calcium Phosphorus Magnesium Total Bilirubin Direct Bilirubin AST ALT Alkaline Phosphatase Total Creatine Kinase Total Protein Albumin Triglycerides Urine Color Urine Appearance Urine pH Ur Specific [place] Urine Protein Urine Glucose (UA) Urine Ketones Urine Blood Urine Nitrite Ur Leukocyte Esterase CSF Tube Number CSF Volume CSF Appearance CSF Color CSF WBC CSF RBC CSF Appearance (b) CSF Glucose CSF Total Protein CSF C.neoform/gat PCR CSF CMV DNA (PCR) CSF Enterovirus (PCR) CSF E. coli K1 (PCR) CSF H. influenzae (PCR) CSF HSV I (PCR) CSF HSV II (PCR) CSF HHV 6 (PCR) CSF L.monocytogenes PCR CSF N. meningitidis PCR CSF Parechovirus (PCR) CSF S. agalactiae (PCR) CSF S. pneumoniae (PCR) CSF VZV (PCR) Random Vancomycin T.pallidum Ab (EIA) A.phagocytophil DNA PCR Babesia microti DNA PCR Borrelia sp DNA (PCR) Borrelia miyamotoi (PCR) E.chaffeensis DNA (PCR) HIV 1&2 Ab/P24 Ag 4thGn Influenza Type A (PCR) Influenza Type B (PCR) RSV RNA Qual (PCR) SARS-CoV-2 RNA (RT-PCR) Tick-borne Disease PCR 12/12/24 12/12/24 12/12/24 00:52 06:07 07:20 WBC RBC Hgb Hct MCV MCH MCHC RDW Plt Count MPV Immature Gran % (Auto) Neut % (Auto) Lymph % (Auto) [place] % (Auto) Eos % (Auto) Baso % (Auto) Lymph # (Auto) [place] # (Auto) Eos # (Auto) Baso # (Auto) Abs Immat Gran (auto) Absolute Neuts (auto) Absolute Nucleated RBC Nucleated RBC % (auto) Hold Purple Top SEE NOTE D-Dimer High Sensitivty VBG pH VBG pCO2 VBG pO2 VBG HCO3 VBG O2 Saturation VBG Base Excess Sodium 140 Potassium 4.3 Chloride 106 Carbon Dioxide 25 Anion Gap 13 BUN 7 L Creatinine 0.71 Estim Creat Clear Calc 193.2 Estimated GFR > 60 POC Glucose 101 101 Random Glucose 87 Lactic Acid Lactic Acid F/U @ 2Hr Calcium 9.6 Phosphorus 4.4 Magnesium 1.9 Total Bilirubin Direct Bilirubin AST ALT Alkaline Phosphatase Total Creatine Kinase Total Protein Albumin 3.4 L Triglycerides Urine Color Urine Appearance Urine pH Ur Specific [place] Urine Protein Urine Glucose (UA) Urine Ketones Urine Blood Urine Nitrite Ur Leukocyte Esterase CSF Tube Number CSF Volume CSF Appearance CSF Color CSF WBC CSF RBC CSF Appearance (b) CSF Glucose CSF Total Protein CSF C.neoform/gat PCR CSF CMV DNA (PCR) CSF Enterovirus (PCR) CSF E. coli K1 (PCR) CSF H. influenzae (PCR) CSF HSV I (PCR) CSF HSV II (PCR) CSF HHV 6 (PCR) CSF L.monocytogenes PCR CSF N. meningitidis PCR CSF Parechovirus (PCR) CSF S. agalactiae (PCR) CSF S. pneumoniae (PCR) CSF VZV (PCR) Random Vancomycin T.pallidum Ab (EIA) A.phagocytophil DNA PCR Babesia microti DNA PCR Borrelia sp DNA (PCR) Borrelia miyamotoi (PCR) E.chaffeensis DNA (PCR) HIV 1&2 Ab/P24 Ag 4thGn Influenza Type A (PCR) Influenza Type B (PCR) RSV RNA Qual (PCR) SARS-CoV-2 RNA (RT-PCR) Tick-borne Disease PCR 12/12/24 12/12/2425 11:30 18:12 23:46 WBC RBC Hgb Hct MCV MCH MCHC RDW Plt Count MPV Immature Gran % (Auto) Neut % (Auto) Lymph % (Auto) [place] % (Auto) Eos % (Auto) Baso % (Auto) Lymph # (Auto) [place] # (Auto) Eos # (Auto) Baso # (Auto) Abs Immat Gran (auto) Absolute Neuts (auto) Absolute Nucleated RBC Nucleated RBC % (auto) Hold Purple Top D-Dimer High Sensitivty VBG pH VBG pCO2 VBG pO2 VBG HCO3 VBG O2 Saturation VBG Base Excess Sodium Potassium Chloride Carbon Dioxide Anion Gap BUN Creatinine Estim Creat Clear Calc Estimated GFR POC Glucose 86 92 98 Random Glucose Lactic Acid Lactic Acid F/U @ 2Hr Calcium Phosphorus Magnesium Total Bilirubin Direct Bilirubin AST ALT Alkaline Phosphatase Total Creatine Kinase Total Protein Albumin Triglycerides Urine Color Urine Appearance Urine pH Ur Specific [place] Urine Protein Urine Glucose (UA) Urine Ketones Urine Blood Urine Nitrite Ur Leukocyte Esterase CSF Tube Number CSF Volume CSF Appearance CSF Color CSF WBC CSF RBC CSF Appearance (b) CSF Glucose CSF Total Protein CSF C.neoform/gat PCR CSF CMV DNA (PCR) CSF Enterovirus (PCR) CSF E. coli K1 (PCR) CSF H. influenzae (PCR) CSF HSV I (PCR) CSF HSV II (PCR) CSF HHV 6 (PCR) CSF L.monocytogenes PCR CSF N. meningitidis PCR CSF Parechovirus (PCR) CSF S. agalactiae (PCR) CSF S. pneumoniae (PCR) CSF VZV (PCR) Random Vancomycin T.pallidum Ab (EIA) A.phagocytophil DNA PCR Babesia microti DNA PCR Borrelia sp DNA (PCR) Borrelia miyamotoi (PCR) E.chaffeensis DNA (PCR) HIV 1&2 Ab/P24 Ag 4thGn Influenza Type A (PCR) Influenza Type B (PCR) RSV RNA Qual (PCR) SARS-CoV-2 RNA (RT-PCR) Tick-borne Disease PCR 12/13/24 12/13/24 12/13/24 06:39 06:59 11:38 WBC RBC Hgb Hct MCV MCH MCHC RDW Plt Count MPV Immature Gran % (Auto) Neut % (Auto) Lymph % (Auto) [place] % (Auto) Eos % (Auto) Baso % (Auto) Lymph # (Auto) [place] # (Auto) Eos # (Auto) Baso # (Auto) Abs Immat Gran (auto) Absolute Neuts (auto) Absolute Nucleated RBC Nucleated RBC % (auto) Hold Purple Top SEE NOTE D-Dimer High Sensitivty VBG pH VBG pCO2 VBG pO2 VBG HCO3 VBG O2 Saturation VBG Base Excess Sodium 140 Potassium 4.0 Chloride 105 Carbon Dioxide 27 Anion Gap 12 BUN 8 L Creatinine 0.70 Estim Creat Clear Calc 196.0 Estimated GFR > 60 POC Glucose 101 100 Random Glucose 92 Lactic Acid Lactic Acid F/U @ 2Hr Calcium 9.7 Phosphorus 4.2 Magnesium 1.9 Total Bilirubin Direct Bilirubin AST ALT Alkaline Phosphatase Total Creatine Kinase Total Protein Albumin 3.5 Triglycerides Urine Color Urine Appearance Urine pH Ur Specific [place] Urine Protein Urine Glucose (UA) Urine Ketones Urine Blood Urine Nitrite Ur Leukocyte Esterase CSF Tube Number CSF Volume CSF Appearance CSF Color CSF WBC CSF RBC CSF Appearance (b) CSF Glucose CSF Total Protein CSF C.neoform/gat PCR CSF CMV DNA (PCR) CSF Enterovirus (PCR) CSF E. coli K1 (PCR) CSF H. influenzae (PCR) CSF HSV I (PCR) CSF HSV II (PCR) CSF HHV 6 (PCR) CSF L.monocytogenes PCR CSF N. meningitidis PCR CSF Parechovirus (PCR) CSF S. agalactiae (PCR) CSF S. pneumoniae (PCR) CSF VZV (PCR) Random Vancomycin T.pallidum Ab (EIA) A.phagocytophil DNA PCR Babesia microti DNA PCR Borrelia sp DNA (PCR) Borrelia miyamotoi (PCR) E.chaffeensis DNA (PCR) HIV 1&2 Ab/P24 Ag 4thGn Influenza Type A (PCR) Influenza Type B (PCR) RSV RNA Qual (PCR) SARS-CoV-2 RNA (RT-PCR) Tick-borne Disease PCR 12/13/24 12/14/24 12/14/24 23:57 05:34 07:00 WBC RBC Hgb Hct MCV MCH MCHC RDW Plt Count MPV Immature Gran % (Auto) Neut % (Auto) Lymph % (Auto) [place] % (Auto) Eos % (Auto) Baso % (Auto) Lymph # (Auto) [place] # (Auto) Eos # (Auto) Baso # (Auto) Abs Immat Gran (auto) Absolute Neuts (auto) Absolute Nucleated RBC Nucleated RBC % (auto) Hold Purple Top SEE NOTE D-Dimer High Sensitivty VBG pH VBG pCO2 VBG pO2 VBG HCO3 VBG O2 Saturation VBG Base Excess Sodium 140 Potassium 4.1 Chloride 106 Carbon Dioxide 27 Anion Gap 11 L BUN 11 Creatinine 0.75 Estim Creat Clear Calc 182.9 Estimated GFR > 60 POC Glucose 88 102 Random Glucose 92 Lactic Acid Lactic Acid F/U @ 2Hr Calcium 9.9 Phosphorus 4.4 Magnesium 1.9 Total Bilirubin Direct Bilirubin AST ALT Alkaline Phosphatase Total Creatine Kinase Total Protein Albumin 3.8 Triglycerides Urine Color Urine Appearance Urine pH Ur Specific [place] Urine Protein Urine Glucose (UA) Urine Ketones Urine Blood Urine Nitrite Ur Leukocyte Esterase CSF Tube Number CSF Volume CSF Appearance CSF Color CSF WBC CSF RBC CSF Appearance (b) CSF Glucose CSF Total Protein CSF C.neoform/gat PCR CSF CMV DNA (PCR) CSF Enterovirus (PCR) CSF E. coli K1 (PCR) CSF H. influenzae (PCR) CSF HSV I (PCR) CSF HSV II (PCR) CSF HHV 6 (PCR) CSF L.monocytogenes PCR CSF N. meningitidis PCR CSF Parechovirus (PCR) CSF S. agalactiae (PCR) CSF S. pneumoniae (PCR) CSF VZV (PCR) Random Vancomycin T.pallidum Ab (EIA) A.phagocytophil DNA PCR Babesia microti DNA PCR Borrelia sp DNA (PCR) Borrelia miyamotoi (PCR) E.chaffeensis DNA (PCR) HIV 1&2 Ab/P24 Ag 4thGn Influenza Type A (PCR) Influenza Type B (PCR) RSV RNA Qual (PCR) SARS-CoV-2 RNA (RT-PCR) Tick-borne Disease PCR Airway Mallampati Class: III TM Dist: >3cm Neck ROM: Full Assessment and Plan Assessment Anesthesia Assessment: Anesthesia Plan Discussed and Chart Reviewed Final Anesthetic Review Family History of Problems with Anesthesia: No History of Problems with Anesthesia: No NPO: Yes ASA Class: III Final Preanesthetic Review: No Changes in Pt Med Stat, Meds/Allgs Chart Reviewed, Consent Obtained/Reviewed and Anes Risks/Benef Reviewed Patient Risk: Intermediate Procedure Risk: Low Anesthetic Plan Anesthetic Plan: GA Disposition: Standard PACU
--- NOTE | 2024-12-14 11:34 | HO.ECTPROC ---
ECT Procedure Note Diagnosis/Treatment Date of Service: 12/14/24 Diagnosis: Catatonia Previous ECT Date: 12/12/24 Current Treatment Number: 2 Treatment: Series Interval Clinical Notes: pt reportedly improved some po intake and speech Time: Total time managing care of this patient today _30___ minutes. ECT Settings Device: THYMATRON DGx Electrode Placement: Bifrontal Program/Pulse Width: 0.50 Energy Percent: 100 Seizure Duration By EEG (in seconds): 86 Medications Administration General Anesthetic: Etomidate (16) Muscle Relaxant: Succinylcholine (100) Airway Management Airway Management: Bag Mask Ventilation Treatment Recommendations Energy Percent: 75 Notes: pt with some improvement can decrease stim percentage
[2024-12-14 12:33] LABS: Lyme IgG CSF Immunoblot NO BANDS DETECTED; Lyme IgM CSF Immunoblot NO BANDS DETECTED
[2024-12-14] MEDS: Enoxaparin Sodium 40 MG/0.4 ML SYRINGE SUBCUT (13:00)
[2024-12-14 13:04] LABS: Glucose, Whole Blood 84 mg/dL (60-115)
--- NOTE | 2024-12-14 13:32 | P.DS_ITS ---
DS: Providers Provider Date of Service: 12/14/24 Date of admission: 12/04/24 13:17 Date of discharge: 12/14/24 Primary care physician: Unknown Physician Consults: 12/04/24 13:17 Consult to Psychiatry Routine Consulting Provider: [facility] Psych Covering Reason for consultation: Catatonia, benzo challenge 12/06/24 09:17 Consult to Neurology Routine Consulting Provider: [facility] Reason for consultation: persistent encephalopathy Has provider been notified: No Consult to Neurology Routine Consulting Provider: [facility] Reason for consultation: severe catatonia; advice; EEG? 12/09/24 08:46 Consult to Infectious Diseases Routine Consulting Provider: [facility] Infectious Disease Center Reason for consultation: Fever / sepsis Has provider been notified: No 12/09/24 13:38 Consult to Infectious Diseases Routine Consulting Provider: [facility] Reason for consultation: FUO Has provider been notified: No 12/14/24 07:18 Inpt CARE Team Crisis Consult Routine Comment: Reason for consultation: medically clear Has provider been notified: No Attending physician on discharge: Francisco Canela Discharging clinician: Francisco Canela DS: Diagnosis Discharge Diagnosis (1) Psychiatric illness: Status: Acute (2) Schizophrenia: Status: Acute (3) Catatonia: Status: Acute DS: Summary Hospital Course Hospital Course: HPI:24-year-old male with question of schizophrenia and autism spectrum disorder but no other PMH known admitted to adult Psychiatry with consult placed hospitalist service due to severe catatonia with concern for IV fluid needs and benzodiazepines. The patient was admitted on 11/30 due to disorientation and erratic behaviors. He was admitted on lamotrigine and Risperdal but there was a question of noncompliance. These medications have subsequently been held. Shortly after admission, the patient became catatonic, minimally verbal. Per nursing staff, the patient has consumed anything, perhaps very minimal intake, orally since Tuesday. The patient is nonresponsive to tactile stimulus, lying in bed, slightly rigid, spinning his head around constantly. Vitals have revealed intermittent tachycardia, on exam, heart rate 117. Blood pressure is stable. No fevers. On arrival, patient had a mild normocytic anemia with H/H13.0/38.9% 11/28. Now H/H16.0/49.5%, likely hemoconcentration. Creatinine on arrival 0.89 with slight bump to 1.00 this morning. Electrolyte levels normal though with slight bump in potassium from 3.8-4.6 and sodium 140 to 142. No acidosis. Initial calcium 9.8, now 10.9. CPK 429. On arrival UTox negative. Ethyl alcoh ol level. He was negative for COVID-19. Per Psychiatry, goal is benzo challenge. The patient did receive 10 mg IM without response. Given no PO in 5 days, will transferred to med/tele for versed challenge with tele monitoring and PPN. Hospital course: 24-year-old male with question of schizophrenia and autism spectrum disorder but no other PMH known admitted to adult Psychiatry with consult placed hospitalist service due to severe catatonia not eating for days and no response to IM diazepam. He was admitted to the medical floor and tehn transfer to the ICU for high doses of benzos and frequent dozing and be closely monitoring, he was transfered out of ICU on 12/07. Patient was subsequently transferred to the floor and afterwards treated for catatoniabut remain state -despite many days of IV benzodiazepine therapy. During this period, the patient developed a fever up to 105?F. A comprehensive workup?including chest X-ray, urinalysis, influenza/RSV/COVID testing, brain mri and lumbar puncture?was unremarkable,blood cultures and CSF cultures negative . Infectious Disease evaluated the patient and attributed the fever to likely sinusitis. The fever has since resolved. Patient was also seen by Neurology-is findings are thought to be possibly related to catatonia. subsequently patient received ECT therapy-after 1st ECT therapy patient woke up, talking and eating, patient seems to be improved significantly. He received 2nd ECT therapy today per psych. Patient is feeling much better-going to psych today, antibiotics switched to p.o. Augmentin., above from all workup Lyme serology and VDRL from CSF is pending(suspicion of Lyme is low). Above was discussed with the psych team in detail length patient will be going back to the psych for further management. plan: Augmentin 875 p.o. b.i.d. for 5 days Follow CSF Lyme serology and VDRL pending further benzodiazepine use as per psych. Catatonia treatment as per psych. Assessment and plan coordination time spent 40 minute, above was discussed with the psych in detail length, Doc to doc done with dr Lira. Time Attestation Total time managing care of this patient today: 40 mintues. Discharge Coordination Time (in mins): 40 min Quality: Safe Use of Opioids Does Pt have an Active Cancer Diagnosis on the Problem List?: No Quality: Stroke Does the patient have a stroke diagnosis?: No Physical Exam Vital Signs: Vital Signs: Last Vital Signs Temp 97.0 F 12/14/24 12:27 Pulse 100 12/14/24 12:27 Resp 20 12/14/24 12:27 BP 112/63 12/14/24 12:27 Pulse Ox 96 12/14/24 12:27 O2 Del Method Room Air 12/14/24 12:27 O2 Flow Rate 2 12/14/24 11:52 BMI result Body Mass Index 28.9 Appearance: awake ,alert,sitting on chair. cvs: rrr, [id number]. res: clear to auscultation ,no rhonchii or wheezing abd: no rebound or guarding ,nt, bs present. ext pulses present , no cyanosis. neuro:moves all ext ,follows commands. DS: Data Data Completed and Pending Labs on day of discharge: Laboratory Results - last 24 hr 12/10/24 12/13/24 12/14/24 11:44 23:57 05:34 Hold Purple Top Sodium Potassium Chloride Carbon Dioxide Anion Gap BUN Creatinine Estim Creat Clear Calc Estimated GFR POC Glucose 88 102 Random Glucose Calcium Phosphorus Magnesium Albumin CSF Lyme IgG (Immblot) NO BANDS DETECTED CSF Lyme IgM (Immblot) NO BANDS DETECTED 12/14/24 12/14/24 07:00 13:00 Hold Purple Top SEE NOTE Sodium 140 Potassium 4.1 Chloride 106 Carbon Dioxide 27 Anion Gap 11 L BUN 11 Creatinine 0.75 Estim Creat Clear Calc 182.9 Estimated GFR > 60 POC Glucose 84 Random Glucose 92 Calcium 9.9 Phosphorus 4.4 Magnesium 1.9 Albumin 3.8 CSF Lyme IgG (Immblot) CSF Lyme IgM (Immblot) Imaging Chest x-ray: Radiologist's impression: ITS Impressions Brain MRI 12/06/24 17:21 IMPRESSION: No acute intracranial hemorrhage. No signal abnormality to suggest encephalopathy Electronically signed by: James Conway MD 12/07/2024 08:43 AM EDT Lumbar Puncture Fluoroscopy 12/10/24 11:25 IMPRESSION: Successful fluoroscopy-guided lumbar puncture. Opening CSF pressure 14 cm of water. Clear CSF 16 mL fluid collected in test tubes and sent to lab. Electronically signed by: Edil Okeefe MD 12/11/2024 09:01 AM EDT RP Discharge Plan Discharge Anticipated Discharge Date/Time: 12/14/24 13:21 Patient Disposition: Xfer Psychiatric Hosp Discharge Diagnosis: fuo, possible sinusitis ,catatonia Referrals: Physician,Unknown J [Primary Care Provider] - 1 Week Discharge Medications: New erythromycin 5 mg/gram (0.5 %) Ointment 1 cm ophthalmic (eye) QID Qty: 1 0RF amoxicillin-pot clavulanate 875-125 mg Tablet 1 tab PO Q12H Qty: 10 0RF Discharge Orders: Discharge Order (Routine); Ordered 12/14/24 Ordered By: Francisco Canela Diet: Advance to usual diet Activity on Discharge: As tolerated Stand Alone Forms: Patient Portal Discharge page Print Language: [place]is[place] Care Plan Goals: 24-year-old male with question of schizophrenia and autism spectrum disorder but no other PMH known admitted to adult Psychiatry with consult placed hospitalist service due to severe catatonia not eating for days and no response to IM diazepam. He was admitted to the medical floor and tehn transfer to the ICU for high doses of benzos and frequent dozing and be closely monitoring, he was transfered out of ICU on 12/07. Patient was subsequently transferred to the floor and afterwards treated for catatoniabut remain state -despite many days of IV benzodiazepine therapy. During this period, the patient developed a fever up to 105?F. A comprehensive workup?including chest X-ray, urinalysis, influenza/RSV/COVID testing, and lumbar puncture?was unremarkable,blood cultures and CSF cultures negative . Infectious Disease evaluated the patient and attributed the fever to likely sinusitis. The fever has since resolved. Patient was also seen by Neurology-is findings are thought to be possibly related to catatonia. subsequently patient received ECT therapy-after 1st ECT therapy patient woke up, talking and eating, patient seems to be improved significantly. He received 2nd ECT therapy today per psych. Patient is feeling much better-going to psych today, antibiotics switched to p.o. Augmentin., above from all workup Lyme serology and VDRL from CSF is pending(suspicion of Lyme is low). Above was discussed with the psych team in detail length patient will be going back to the psych for further management. Health Concerns: As above. Augmentin 875 p.o. b.i.d. for 5 days Follow CSF Lyme serology and VDRL pending Catatonia treatment as per psych. Plan of Treatment: As above.
--- NOTE | 2024-12-14 14:20 | MHC.CM.PN ---
Pt is transferring to inpatient psych level of care.
--- NOTE | 2024-12-14 17:50 | PC.ADMIT ---
Werner arrived via [place] [facility] He is on a section 8. He is alert, slightly unsteady on his feet and oriented to person, but only vaguely oriented to time, place and situation. He states he came to the hospital because his dad wanted him to go to a place before the place to get help. He was cooperative with skin and safety check, although rolling his eyes occasionally and scoffing. He doesnt recall his time on M3 or ICU. (Per care team assessment) He was at [facility] and was unable to care for himself, and there were concerns of delusions, disassociation and self dialoguing. His dad brought him to [facility] ED. He is on the spectrum, graduated high school and has held jobs in the past. His mom states she noticed a decline around age 22 with a rapid decline over the past year. She tried to obtain services but was unsuccessful. So she brought him here from [place] in hopes of getting services here. He does not smoke or use any substances. ?Per Dr Cadena note-Social History: ASD since 2 years old; IEP with honors classes, working; [employer]; graduated H[employer]S;?? Living in [place] with his mother until July 2024 when he moved to [place] to be with his father.? -around 22 years old, seemed more reclusive and pt started changing? -lost job September 2022; missing days, not focused; got fired at next job for going too slow? -a year ago, less ADL's, not showering, less motivation, mom thinking more than just ASD since not like this at all in H.S? -Refusing to go to appointments. Got him to ED and psych doctor evaluated but was not able to be Sectioned; mom tried other times to get him to doctor, to hospital, but police felt did not meet criteria to section him...? -still minimal ADL's; in Fall 2023 started sleeping outside in the park which again, out of character? -Jul 2024 making slow movements, like in slow motion, but able to pull out of it; kept sleeping outside in front of her door, peeing on himself or in bottles.? -Episodes of staring off and not responding; intermittently would look agitated? -Mom sent him to [place] to be with father? ? -no hx of drug/alcohol use?? -had gone 36 hours w/out sleep, but not hyperactive, withdrawn and either quiet on laptop or making lots of food but not eating? -no seizure hx? -no hx of medication Trauma History: Denies ?Was inpatient at [facility] 11/2024.? He is now doing ECT.? He is currently on a 1:1 for safety.
[2024-12-14 20:33] LABS: VDRL Qualitative CSF Nonreactive (Nonreactive)
== END 2024-12-14 14:20 | DRG 750 ==
LOC: HO.IMC 18:35 → HO.ICU 18:56 → HO.IMC 12-07 11:40
PROVIDERS: Hospitalist; Internal Medicine; Internal Medicine Pulmonary Disease; Psychiatry & Neurology Psychiatry; Admitting Provider Physician Assistant; Visit Provider Internal Medicine
PROC: GZB4ZZZ Other Electroconvulsive Therapy (ICD-10-PCS; CPT 90870; principal; 2024-12-12 07:00)
DX: F20.9 Schizophrenia, unspecified (principal); F06.1 Catatonic disorder due to known physiological condition; J32.9 Chronic sinusitis, unspecified; D64.9 Anemia, unspecified; J34.1 Cyst and mucocele of nose and nasal sinus; F84.0 Autistic disorder; Z20.822 Contact with and (suspected) exposure to COVID-19; Z79.899 Other long term (current) drug therapy
CPT/HCPCS: 0241U; 36415; 62328; 70551; 71045; 80048; 80053; 80076; 80202; 81003; 82040; 82550; 82803; 82945; 82947; 83605; 83735; 84100; 84157; 84478; 85025; 85027; 85379; 86592; 86617; 86780; 87015; 87040; 87070; 87205; 87389; 87468; 87469; 87478; 87483; 87484; 87798; 89051; 90870; 93005; 97162; J0133; J0330; J0696; J1271; J1596; J1650; J2060; J2250; J2704; J3360; J3370; J3371; J7120; S9485

== ENCOUNTER 2024-12-04 13:17 | Outpatient (BNV) | payer MEDICAID, SELFPAY | END 2024-12-10 11:00 | PROVIDERS: Admitting Provider Physician Assistant; Visit Provider Radiology Diagnostic Radiology | DX: R41.82 Altered mental status, unspecified (principal); R50.9 Fever, unspecified | CPT/HCPCS: 62328 ==

== ENCOUNTER 2024-12-04 13:17 | Outpatient (BNV) | payer MEDICAID, SELFPAY | END 2024-12-08 23:02 | PROVIDERS: Admitting Provider Physician Assistant; Visit Provider Student in an Organized Health Care Education/Training Program | DX: R50.9 Fever, unspecified (principal) | CPT/HCPCS: 71045 ==

== ENCOUNTER 2024-12-04 13:17 | Outpatient (BNV) | payer MEDICAID, SELFPAY | END 2024-12-06 17:21 | PROVIDERS: Admitting Provider Physician Assistant; Visit Provider Radiology Diagnostic Radiology | DX: J34.1 Cyst and mucocele of nose and nasal sinus (principal) | CPT/HCPCS: 70551 ==

== ENCOUNTER → 2024-12-04 13:17 | Outpatient (BNV) | payer MEDICAID, SELFPAY | PROVIDERS: Admitting Provider Physician Assistant; Visit Provider Physician Assistant | DX: F20.2 Catatonic schizophrenia (principal) | CPT/HCPCS: 99223; 99232; 99233; 99499 ==

== ENCOUNTER → 2024-12-04 13:17 | Outpatient (BNV) | payer OTHER, SELFPAY | PROVIDERS: Admitting Provider Physician Assistant; Visit Provider Psychiatry & Neurology Psychiatry | DX: F20.9 Schizophrenia, unspecified (principal); F06.1 Catatonic disorder due to known physiological condition | CPT/HCPCS: 90870 ==

== ENCOUNTER → 2024-12-04 13:17 | Outpatient (BNV) | payer MEDICAID, SELFPAY | PROVIDERS: Admitting Provider Physician Assistant; Visit Provider Internal Medicine | DX: F06.1 Catatonic disorder due to known physiological condition (principal); F20.9 Schizophrenia, unspecified; R50.9 Fever, unspecified | CPT/HCPCS: 99222 ==

== ENCOUNTER → 2024-12-04 13:17 | Outpatient (BNV) | payer OTHER, SELFPAY | PROVIDERS: Admitting Provider Physician Assistant; Visit Provider Psychiatry & Neurology Psychiatry | DX: F20.9 Schizophrenia, unspecified (principal); F06.1 Catatonic disorder due to known physiological condition; F84.0 Autistic disorder; R50.9 Fever, unspecified | CPT/HCPCS: 99232 ==

== ENCOUNTER → 2024-12-04 13:17 | Outpatient (BNV) | payer MEDICAID, SELFPAY | PROVIDERS: Admitting Provider Physician Assistant; Visit Provider Internal Medicine Pulmonary Disease | DX: F06.1 Catatonic disorder due to known physiological condition (principal); F20.9 Schizophrenia, unspecified | CPT/HCPCS: 99233 ==

== ENCOUNTER → 2024-12-04 13:17 | Outpatient (BNV) | payer MEDICAID, SELFPAY | PROVIDERS: Admitting Provider Physician Assistant; Visit Provider Psychiatry & Neurology Neurology | DX: F06.1 Catatonic disorder due to known physiological condition (principal) | CPT/HCPCS: 99222 ==

== ENCOUNTER 2024-12-14 14:27 | Inpatient (IN) | payer OTHER, SELFPAY ==
--- NOTE | 2024-12-14 13:46 | HO.PSYADMNOT ---
[facility] Date of Service: 12/14/24 Chief Complaint: catatonia/psychosis/autism Sources of Information: patient interviewed and chart reviewed Additional Sources of Information: pt seen in ect 1 pm 12/14 case reviewed with hospitalist staff 215 pm regarding medical status pt evaluated on pm on M% [facility] Subjective Notes: Section 8 Narrative: The patient is a 24-year-old male with a history of reported schizophrenia and autism transferred back from the medical floor after the case was reviewed with Dr. Canela at approximately 14:00 December 14. Patient was seen at approximately 16:00 December 14 and had also been seen earlier in the day and received ECT for catatonia and there had been a question of malignant catatonia with her recent fever number of days ago without clear source. Patient had a medical workup including lumbar puncture and was no clear source. Patient had been transferred to the medical floor secondary to severe catatonia not eating not drinking unresponsive and the patient was eventually on a civil commitment and treatment plan that included lorazepam and ECT please see prior admission data from 11/30/2024 the patient had received IV benzodiazepines IV fluids TPN and did not respond to intravenous benzodiazepines am was changed to ECT as most appropriate treatment after significant risk secondary to severe catatonia nonresponsive benzodiazepines and has received 2 ECT treatments bifrontally on the medical floor. The patient had begun eating drinking and ambulating and had reported swallowing eval that was okay and was then transferred back to Psychiatry under Dr. Saucedo service Past Psychiatric History: Does not have outpatient psychiatric providers. Recently discharged from [facility] 11/2024. This is patient's 2nd inpatient psychiatric hospitalization. Denies history of SA/SIB. There is a reported long history of autism high functioning patient was in [employer] classes has reportedly developed schizophrenic type symptoms over the past year has not been in outpatient treatment patient had reportedly refused treatment. Medical Evaluation Reviewed: Yes Recent fever unclear source patient was treated with antibiotics question of early malignant catatonia and has not been febrile reportedly started eating drinking and was verbal on the medical floor PMF Medical History Fever, unknown origin Autism spectrum disorder Family History: Denies Social History: ASD since 2 years old; IEP with [employer], working; [employer]; graduated H.S; Living in [place] with his mother until July 2024 when he moved to [place] to be with his father. -around 22 years old, seemed more reclusive and pt started changing -lost job September 2022; missing days, not focused; got fired at next job for going too slow -a year ago, less ADL's, not showering, less motivation, mom thinking more than just ASD since not like this at all in H.S -Refusing to go to appointments. Got him to ED and psych doctor evaluated but was not able to be Sectioned; mom tried other times to get him to doctor, to hospital, but police felt did not meet criteria to section him... -still minimal ADL's; in Fall 2023 started sleeping outside in the park which again, out of character -Jul 2024 making slow movements, like in slow motion, but able to pull out of it; kept sleeping outside in front of her door, peeing on himself or in bottles. -Episodes of staring off and not responding; intermittently would look agitated -Mom sent him to [facility] to be with father -no hx of drug/alcohol use -had gone 36 hours w/out sleep, but not hyperactive, withdrawn and either quiet on laptop or making lots of food but not eating -no seizure hx -no hx of medication Substance History: None noted Trauma History: Denies question some recent difficulty when at a [facility] Diagn[facility] Labs 12/15/24 07:54 12/15/24 07:54 Imaging Radiology Impressions: MRI reportedly unremarkable brain Meds/Allergies Meds Home Medications ?Medication ?Instructions ?Recorded ?Confirmed ?Type lamotrigine 25 mg tablet 25 mg PO BID 12/14/24 12/14/24 History multivitamin with folic acid 400 1 tab PO DAILY 12/14/24 12/14/24 History mcg tablet (Daily-Luh (with folic acid)) risperidone 1 mg tablet 1 mg PO BID 12/14/24 12/14/24 History Allergies Allergies Allergy/AdvReac Type Severity Reaction Status Date / Time No Known Allergies Allergy Verified 11/28/24 13:56 Mental Status Exam Mental Status Exam Narrative: Moving all limbs more naturally on his own; eyes closed when seen patient lying in bed does arouse no rigidity he is seen status post ECT he responded to his name do he was in the hospital denied any pain shook his head when asked about suicide or self-harm his speech was very soft difficult to understand and did not engage further appeared to go back to sleep He had been seen ambulating previously did not appear to be in any distress Assessment & Plan Assessment & Plan (1) Catatonia: Status: Acute Code(s): F06.1 - Catatonic disorder due to known physiological condition (2) Schizophrenia: Status: Acute Code(s): F20.9 - Schizophrenia, unspecified (3) Autism spectrum disorder: Status: Acute Code(s): F84.0 - Autistic disorder Plan Patient is a 24-year-old male history of autism more withdrawn behaviorally odd over the past year with periods of not taking care of himself question program of schizophrenia was recently hospitalized at [facility] started on Risperdal was discharged to his [facility] had difficulty then we admitted here and shortly thereafter developed catatonia. Extensive education was given to the patient's father stepmother and patient's biological mother who is out of state Thought to hold antipsychotics given significant catatonia if needed eventually Clozaril can be considered continue ECT patient appears to be responding Continue lorazepam 1 mg p.o. t.i.d. to prevent withdrawal and for catatonia. If patient against spikes fever would consider medical transfer Monitor patient's continued ability to eat drink consider IV fluids if needed patient on one-to-one for safety at present time Patient educated on: diagnosis, ECT and medical condition Guardian/Caregiver educated on: diagnosis and ECT Informed Consent: does not understand and further education needed Reason for continued inpatient stay Substantial Risk for: inability to function, rapid decompensation and med/psych decompensation Statement Statement: I have reviewed the history and physical and performed a pertinent examination on my patient. No changes have occurred unless specified. If the History and Physical was not performed prior to admission, the Hospitalist's service will be consulted for completing the admission physical. Time Spent With Patient Time: Total time managing care of this patient today ____ minutes.
--- OUTSIDE RECORDS SUMMARY | 2024-12-14 14:38 | XMS_ITS | Patient Health Record ---
Author Organization [facility] Address [address] [place] [address] [phone] Care Team Providers Care Chief Nurse Executive Name Role Phone No, PCP Primary Care Provider Unavailabl e [facility], Nursing Unavailable [phone] [facility], [facility] Unavailable [phone] Reason For Referral No Information Encounters Encounter Location Date Provider Diagnosis [address] [id number] 11/14/[address] [id number] 11/20/2024 [facility] Plan Of Treatment Next Appt Details Provider Name:Nursing [facility], 12/28/2024 01:30:00 PM, [address] [place] [address], [id number], Insurance Providers Payer Name Payer Address Payer Phone Subscriber Number Group Number Insured Name Patient Relationship to Insured Coverage Start Date Coverage End Date [place] Medicaid Standard [address] [place] [phone] [id number] Mónica Cleaning Self - patient is the insured
--- OUTSIDE RECORDS SUMMARY | 2024-12-14 14:38 | XMS_ITS ---
Author Organization [facility] Address [address] [place] [phone] Care Team Providers Care Subsorter Name Role Phone No, PCP Primary Care Provider Unavailabl e [facility], Nursing Unavailable [phone] [facility], [facility] Unavailable [phone] REASON FOR VISIT apply for insurance Encounters Encounter Location Date Provider Diagnosis [address] [id number] 11/14/2024 [facility] Plan Of Treatment Next Appt Details Provider Name:Nursing [facility], 12/28/2024 01:30:00 PM, [address] [place] [address], [id number], Progress Notes * Mónica CLEANINGDOB: 1 (24 yo M)Acc No.[id number]:11/14/2024 Patient:?Mónica CLEANING Provider:?W [facility] :2000???Age:24 Y???Sex:Male Gurpreet e:11/14/2024 Address:[address] [place] [phone] Pcp:PCP No Subjective: * Chief Complaints: * ???1. Apply for insurance. * HPI: ???Social Service:?Date of encounter?Date:11/14/2024.?Referral Source?Seen at:, [facility].?Action Taken?[facility]? Member came in with their father to apply for [employer]; called to find out why member was not eligible; member has not submitted a new application since 2019;, application on paper : faxed, Address updated, ZEENAT submitted..?Follow-up Required:?no.?Pt comprehension?Pt agrees with plan, Patient understood process and assisted with process.? * Medical History:? Objective: * Vitals:? Assessment: Plan: * Images: Billing Information: Care Plan Details* * Sign off status: Completed true * Provider:?MACI [facility] Date:?11/14/2024 Generated for Joseph trinh/Cosmo/eTransmitting on:?12/14/2024 02:38 PM EDT History and Physical Notes * HPI (History of Present Illness) Category Sub-Category Detail Notes Social Service Referral Source Seen at:, [facility] Follow-up Required: no Pt comprehension Pt agrees with plan, Patient understood process and assisted with process Action Taken [facility] : Member came in w ith their father to apply for [employer]; called to find out why member was not eligible; member has not submitted a new application since 2019;, application on paper : faxed, Address updated, ZEENAT submitted. Date of encounter Date:11/14/2024
--- OUTSIDE RECORDS SUMMARY | 2024-12-14 14:38 | XMS_ITS ---
Author Organization [facility] Address [address] [place] [phone] Care Team Providers Care Test Case Developer Name Role Phone No, PCP Primary Care Provider Unavailabl e [facility], Nursing Unavailable [phone] [facility], [facility] Unavailable [phone] REASON FOR VISIT pick plan and pcp Encounters Encounter Location Date Provider Diagnosis [address] [id number] 11/20/2024 [facility] Plan Of Treatment Next Appt Details Provider Name:Nursing [facility], 12/28/2024 01:30:00 PM, [address] [place] [address], [id number], Progress Notes * Mónica CLEANINGDOB: 1 (24 yo M)Acc No.[id number]:11/20/2024 Patient:?Mónica CLEANING Provider:?[facility] :2000???Age:24 Y???Sex:Male Gurpreet e:11/20/2024 Address:[address] [place] [phone] Pcp:PCP No Subjective: * Chief Complaints: * ???1. Pick plan and pcp. * HPI: ???Social Service:?Date of encounter?Date:11/20/2024.?Action Taken?[facility]? Enrollment in plan-online: [id number]; Picked plan and pcp to C3 w/[facility]; 1-2 days to process..?Follow-up Required:?no.?Pt comprehension?Pt agrees with plan, Patient understood process and assisted with process.? * Medical History:? Objective: * Vitals:? Assessment: Plan: * Images: Billing Information: Care Plan Details* * Sign off status: Completed true * Provider:?MACI [facility] Date:?11/20/2024 Generated for Joseph trinh/Cosmo/Livia on:?12/14/2024 02:38 PM EDT History and Physical Notes * HPI (History of Present Illness) Category Sub-Category Detail Notes Social Service Follow-up Required: no Pt comprehension Pt agrees with plan, Patient understood process and assisted with process Action Taken [facility] : Enrollment in an-online: [id number]; Picked plan and pcp to C3 w/[facility]; 1-2 days to process. Date of encounter Date:11/20/2024
[2024-12-14 15:00] VITALS: BP 122/70; PULSE 92; RESP 14; TEMP 36.2; O2SAT 98
[2024-12-14] MEDS: LORazepam 1 MG TABLET PO ×2 (16:01→21:49)
[2024-12-14 19:25] VITALS: BMI 28.7
--- NOTE | 2024-12-14 19:46 | PC.ADMIT ---
Werner Cleaning Male : 2000 [facility]# [id number] 12/14/24 17:50 - Admission Note by Nimo Trujillo RN : 2000 Patient Age: 24 Werner arrived via wheelchair from [facility]. He is on a section 8. He is alert, slightly unsteady on his feet and oriented to person, but only vaguely oriented to time, place and situation. He states he came to the hospital because his dad wanted him to go to a place before the place to get help. He was cooperative with skin and safety check, although rolling his eyes occasionally and scoffing. He doesnt recall his time on M3 or ICU. (Per care team assessment) He was at [facility] and was unable to care for himself, and there were concerns of delusions, disassociation and self dialoguing. His dad brought him to [facility] ED. He is on the spectrum, graduated high school and has held jobs in the past. His mom states she noticed a decline around age 22 with a rapid decline over the past year. She tried to obtain services but was unsuccessful. So she brought him here from [place] in hopes of getting services here. He does not smoke or use any substances. ?Per Dr Cadena note-Social History: ASD since 2 years old; IEP with honors classes, working; [employer]; graduated H.S;?? Living in [place] with his mother until July 2024 when he moved to [place] to be with his father.? -around 22 years old, seemed more reclusive and pt started changing? -lost job September 2022; missing days, not focused; got fired at next job for going too slow? -a year ago, less ADL's, not showering, less motivation, mom thinking more than just ASD since not like this at all in H.S? -Refusing to go to appointments. Got him to ED and psych doctor evaluated but was not able to be Sectioned; mom tried other times to get him to doctor, to hospital, but police felt did not meet criteria to section him...? -still minimal ADL's; in Fall 2023 started sleeping outside in the park which again, out of character? -Jul 2024 making slow movements, like in slow motion, but able to pull out of it; kept sleeping outside in front of her door, peeing on himself or in bottles.? -Episodes of staring off and not responding; intermittently would look agitated? -Mom sent him to [facility] to be with father? ? -no hx of drug/alcohol use?? -had gone 36 hours w/out sleep, but not hyperactive, withdrawn and either quiet on laptop or making lots of food but not eating? -no seizure hx? -no hx of medication Trauma History: Denies ?Was inpatient at [facility] 11/2024.? He is now doing ECT.? --He had a condom cath until this morning. It was removed and He was voiding in the urinal independently, last at approximately 1300 per NURSE TO NURSE He is currently on a 1:1 for safety.
[2024-12-14 20:00] VITALS: BP 127/71; PULSE 94; RESP 16; TEMP 37.7; O2SAT 96
[2024-12-15] MEDS: 0.9 % Sodium Chloride Flush 10 ML SYRINGE 5 ML IVFLUSH (00:48)
--- NOTE | 2024-12-15 07:28 | P.PNPSI_ITS ---
Subjective Subjective Date of Service: 12/15/24 Reason For Visit: catatonia/psychosis/autism Subjective Notes: Section 8 Healthcare Proxy: No Guardianship: No Medical Problems Affecting Mental Status: No Interim History: 24 yo with improving catatonia on ativan- pt eating pudding and dipping dev crackers into it - on 1:1 for safety Medication Compliance: Yes Side effects from medications: No Attending Groups: No Review of Systems Acute medical concerns: No Medical Review of Systems: unchanged Mental Status Exam Mental Status Exam Patient Appearance: Unkempt Patient Orientation: Person Level of Consciousness: Awake Patient Behavior: Appropriate (mostly - wearing blanket over his shoulder like a toga, throwing empty pudding cup) and Isolative Mood Description: Apathetic Affect Description: Blunted Patient Cognition Impaired: No Ability to Follow Directions: Fair Thought Process: Slowed Thinking Thought Content: positive for Poverty of Content Judgement: Poor Diagnostics Vital Signs (24Hr): Vital Signs - 24 hr 12/14/24 15:00 12/14/24 20:00 Temperature 97.2 F 99.8 F Pulse Rate 92 94 Respiratory Rate 14 16 Blood Pressure 122/70 127/71 Pulse Oximetry 98 96 Oxygen Delivery Method Room Air BMI result Body Mass Index 28.7 Labs 12/15/24 07:54 12/15/24 07:54 Medications Medications Current Medications Al Hydroxide/Mg Hydroxide (Magnesium Hydrox/Alum Hydrox 30 Ml Oral.Susp) 30 ml PO Q6H PRN PRN Reason: Heartburn/Nausea Lorazepam (Lorazepam 1 Mg Tablet) 1 mg PO TID [facility] Last Admin: 12/14/24 21:49 Dose: 1 mg Magnesium Hydroxide (Milk Of Magnesia 30 Ml Oral.Susp) 30 ml PO DAILY PRN PRN Reason: Constipation Sodium Chloride (0.9 % Sodium Chloride Flush 10 Ml Syringe) 5 ml IVFLUSH QSHIFT [facility] Last Admin: 12/15/24 00:48 Dose: 5 ml Allergies Allergies Allergy/AdvReac Type Severity Reaction Status Date / Time No Known Allergies Allergy Verified 11/28/24 13:56 Assessment & Plan Assessment & Plan (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 Reason for continued inpatient stay Substantial Risk for: rapid decompensation and med/psych decompensation Time Spent With Patient Time: Total time managing care of this patient today ____ minutes.
[2024-12-15 08:00] VITALS: BP 114/62; PULSE 90; TEMP 36.6; O2SAT 98
[2024-12-15 08:08] LABS: MANUAL DIFF FLAG NO
[2024-12-15 08:13] LABS: Basophils Absolute Auto 0.1 X10*3/uL (0.0-0.2); Basophils Percent Auto 0.7 % (0-2); Eosinophils Absolute Auto 0.2 X10*3/uL (0.0-0.4); Eosinophils Percent Auto 2.1 % (0-4); Hematocrit 36.3 % (42.0-52.0); Hemoglobin 12.1 g/dl (14.0-18.0); Imm Gran Abs Auto 0.18 X10*3/uL (0.00-0.03); Imm Gran Pct Auto 2.2 % (0.0-0.4); Lymphocytes Percent Auto 37.2 % (20-40); Mean Corpuscular HGB Conc 33.3 g/dl (31.0-36.0); Mean Corpuscular Hemoglobin 30.1 pg (27.0-33.0); Mean Corpuscular Volume 90.3 fL (80.0-98.0); Mean Platelet Volume 9.9 fL (9.4-12.4); Monocytes Absolute Auto 0.5 X10*3/uL (0.1-1.2); Monocytes Percent Auto 6.3 % (2-11); Neutrophils Absolute Auto 4.1 x10*3/uL (2.0-8.3); Neutrophils Percent Auto 51.5 % (45-73); Platelet Count 311 X10*3/uL (160-400); Red Blood Count 4.02 X10*6/uL (4.60-5.80); Red Cell Distribution Width 12.3 % (11.0-16.0); White Blood Count 8.1 X10*3/uL (4.8-10.8)
[2024-12-15] MEDS: LORazepam 1 MG TABLET PO ×3 (08:25→21:29)
[2024-12-15 08:27] LABS: Estimated Average Glucose 82 mg/dL; Hemoglobin A1C 79.2313 umol/L; Hemoglobin A1c % 4.5 % (<6.0); Total Hemoglobin (HGBA1C) 3129.8939 umol/L
[2024-12-15 08:28] LABS: Alanine Aminotransferase 82 U/L (0-40); Albumin Level 3.8 g/dL (3.5-5.0); Alkaline Phosphatase 47 U/L (39-117); Anion Gap 12 (12-20); Aspartate Amino Transferase 40 U/L (5-37); Bilirubin Total 0.5 mg/dL (0.0-1.0); Blood Urea Nitrogen 11 mg/dL (9-16); Carbon Dioxide 28 mmol/L (22-29); Chloride 106 mmol/L (96-108); Cholesterol 114 mg/dL (<200); Creatinine Clr Calc Pharmacy 162.9; Estimated Glomerular Filt Rate > 60; Glucose Random 85 mg/dL (60-115); HDL Cholesterol 20 mg/dL (>40); LDL Cholesterol Calculated 88 mg/dL (<100); Potassium 4.3 mmol/L (3.3-5.1); Sodium 142 mmol/L (135-145); Total Protein 7.1 g/dL (6.5-8.0); Triglycerides 30 mg/dL (<150)
[2024-12-15 09:00] VITALS: BP 114/62; PULSE 90; TEMP 36.6; O2SAT 98
[2024-12-15 13:00] VITALS: BP 117/62; PULSE 88; TEMP 37.1; O2SAT 98
[2024-12-15 18:00] VITALS: BP 116/68; PULSE 88; TEMP 36.7; O2SAT 98
[2024-12-15 20:00] VITALS: BP 139/67; PULSE 83; RESP 16; TEMP 36.9; O2SAT 97
[2024-12-15] MEDS: Erythromycin Base 0.5% Oph Oin 1 GM TUBE 1 CM EYE-BOTH (21:30)
[2024-12-15] MEDS: Amoxicillin/Potassium Clav 875 MG TABLET PO (21:30)
--- NOTE | 2024-12-16 08:07 | HO.PSYCHPN ---
Subjective Subjective Date of Service: 12/16/24 Reason For Visit: catatonia/psychosis/autism Subjective Notes: Section 8 Healthcare Proxy: No Guardianship: No Medical Problems Affecting Mental Status: No Interim History: 24 yo AA doing ok - reports fine no clear report from patient of prior days when he was catatonic- but now sleeping, eating and drinking fluids- denies si/hi/psychosis- refused ativan this am but couldn't say why - When asked about student/work - he says he had a job in [id number]- Case discussed with dr Lira who feels ECT helped- when ativan hadn't now doing well on on current ativan- no longer need for 1:1 Medication Compliance: Intermittent Side effects from medications: No Attending Groups: Intermittent Review of Systems Acute medical concerns: No Medical Review of Systems: changed Review of Systems: eating and drinking fluids Mental Status Exam Mental Status Exam Patient Appearance: Appropriate Patient Orientation: Person, Place and Situation Level of Consciousness: Awake Patient Behavior: Appropriate, Cooperative and Passive Mood Description: Apathetic Affect Description: Blunted Patient Cognition Impaired: No Ability to Follow Directions: Fair Speech Pattern: Clear and Impoverished (slightly) Hallucinations: None Delusions: Not Present Thought Process: Intact and Goal Oriented Thought Content: positive for [place] Judgement: Fair Diagnostics Vital Signs (24Hr): Vital Signs - 24 hr 12/15/24 09:00 12/15/24 13:00 12/15/24 18:00 Temperature 97.8 F 98.8 F 98.1 F Pulse Rate 90 88 88 Respiratory Rate Blood Pressure 114/62 117/62 116/68 Pulse Oximetry 98 98 98 Oxygen Delivery Method Room Air Room Air Room Air 12/15/24 20:00 Temperature 98.5 F Pulse Rate 83 Respiratory Rate 16 Blood Pressure 139/67 Pulse Oximetry 97 Oxygen Delivery Method Room Air BMI result Body Mass Index 28.7 Labs 12/15/24 07:54 12/15/24 07:54 Labs: Laboratory Results - last 48 hr 12/15/24 07:54 WBC 8.1 RBC 4.02 L Hgb 12.1 L Hct 36.3 L MCV 90.3 MCH 30.1 MCHC 33.3 RDW 12.3 Plt Count 311 D MPV 9.9 Immature Gran % (Auto) 2.2 H Neut % (Auto) 51.5 Lymph % (Auto) 37.2 [place] % (Auto) 6.3 Eos % (Auto) 2.1 Baso % (Auto) 0.7 Lymph # (Auto) 3.0 [place] # (Auto) 0.5 Eos # (Auto) 0.2 Baso # (Auto) 0.1 Abs Immat Gran (auto) 0.18 H Absolute Neuts (auto) 4.1 Absolute Nucleated RBC 0.000 Nucleated RBC % (auto) 0.0 Sodium 142 Potassium 4.3 Chloride 106 Carbon Dioxide 28 Anion Gap 12 BUN 11 Creatinine 0.84 Estim Creat Clear Calc 162.9 Estimated GFR > 60 Random Glucose 85 Estimat Average Glucose 82 Hemoglobin A1c % 4.5 Calcium 10.0 Total Bilirubin 0.5 AST 40 H ALT 82 H Alkaline Phosphatase 47 Total Protein 7.1 Albumin 3.8 Triglycerides 30 Cholesterol 114 LDL Cholesterol, Calc 88 HDL Cholesterol 20 L Medications Medications Current Medications Al Hydroxide/Mg Hydroxide (Magnesium Hydrox/Alum Hydrox 30 Ml Oral.Susp) 30 ml PO Q6H PRN PRN Reason: Heartburn/Nausea Amoxicillin/Clavulanate Potassium (Amoxicillin/Potassium Clav 875 Mg Tablet) 875 mg PO BID REPLACED BY [facility] Last Admin: 12/15/24 21:30 Dose: 875 mg Erythromycin (Erythromycin Base 0.5% Oph Oin 1 Gm Tube) 1 cm EYE-BOTH QID REPLACED BY [facility] Last Admin: 12/15/24 21:30 Dose: 1 cm Lorazepam (Lorazepam 1 Mg Tablet) 1 mg PO TID REPLACED BY [facility] Last Admin: 12/15/24 21:29 Dose: 1 mg Magnesium Hydroxide (Milk Of Magnesia 30 Ml Oral.Susp) 30 ml PO DAILY PRN PRN Reason: Constipation Multivitamins/Vitamin C (Multivitamin Tablet) 1 tab PO DAILY REPLACED BY [facility] Allergies Allergies Allergy/AdvReac Type Severity Reaction Status Date / Time No Known Allergies Allergy Verified 11/28/24 13:56 Assessment & Plan Assessment & Plan (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 12/16 - dc 1:1, pt requested ensure with meals- maybe be rebound hunger from not eating while catatonic. Patient educated on: diagnosis, medication risk/benefits and medical condition Informed Consent: understands and further education needed Reason for continued inpatient stay Substantial Risk for: inability to function, rapid decompensation and med/psych decompensation Time Spent With Patient Time: Total time managing care of this patient today ____ minutes.
[2024-12-16] MEDS: Amoxicillin/Potassium Clav 875 MG TABLET PO ×2 (09:20→21:29)
[2024-12-16] MEDS: Multivitamin TABLET 1 TAB PO (09:20)
[2024-12-16] MEDS: LORazepam 1 MG TABLET PO ×2 (10:03→18:11)
[2024-12-16 11:20] VITALS: BP 114/65; PULSE 88; RESP 20; TEMP 36.9; O2SAT 97
[2024-12-16 19:55] VITALS: BP 112/55; PULSE 88; RESP 15; TEMP 36.9; O2SAT 97
[2024-12-17] VITALS (10 sets, daily range): BP systolic 97–143; BP diastolic 50–84; PULSE 75–106; RESP 14–20; TEMP 36.3–37; O2SAT 94–100
[2024-12-17] MEDS: Lactated Ringers 1,000 ML 100 ML IVCONT (10:30)
--- NOTE | 2024-12-17 11:40 | MHC.SHP ---
Pre-Procedural Eval Section A - 24 Hr Update-Section A only Date of Service: 12/17/24 The patient is an INPATIENT: Yes Changes since office visit: Yes Patient answered all questions; No Cold of Flu in the past 2 weeks, No New Medical Problems and No Changes in Medication The patient has been examined within 24 hours of the surgical procedure. The History & Physical has been completed within 30 days and I have reviewed it.: Yes Section B - Complete if H&P > 30 days Chief Complaint: catatonia/psychosis/autism Allergies: Allergies Allergy/AdvReac Type Severity Reaction Status Date / Time No Known Allergies Allergy Verified 11/28/24 13:56 Plan I have reviewed the history and physical and performed a pertinent physical examination on my patient. No changes have occurred unless specified. Time Spent With Patient Time: Total time managing care of this patient today __30__ minutes.
--- NOTE | 2024-12-17 11:56 | P.CONAN_ITS ---
HPI - Anesthesia Eval Consult details Narrative: 24 yo male patient for ECT PMFSH Active Problems Active Problems: All Active Problems Fever, unknown origin (Acute) Catatonia (Acute) Schizophrenia (Acute) Autism spectrum disorder (Acute) Psychiatric illness (Acute) Past Medical History Medical History Fever, unknown origin Autism spectrum disorder Family History Family history of problems with anesthesia: No Surgical History History of Problems with Anesthesia: No Social History Social History Household Members: None Household Members Other:: pt is admit fr M# for catatonia, not response to questions, JULIO CESAR Housing: Homeless Do you presently have visiting nurse or other home services: No Comment: 1:1 sitter at bedside Patient Tobacco Use Status: Never used Tobacco e-Cigarette/Vaping Use: Never Used Second Hand Smoke Exposure: No Use of substances other than those prescribed or required for medical reasons: No Currently Displaying Signs/Symptoms of Drug Intoxication Withdrawal: No Any prior treatment program specific to substance use: No Spiritual Healthcare Practices: unable to participate Worship Healthcare Practices: unable to participate Cultural Healthcare Practices: unable to participate Advance Directives: No Advance Directives Information Provided: Yes Do you have thoughts of harming others: None Do you have a plan to hurt others: No Plan Recently lost weight without trying: Unsure Poor oral hygiene: No service: No Sexual orientation: Decline to Answer Meds Allergies Allergy/AdvReac Type Severity Reaction Status Date / Time No Known Allergies Allergy Verified 11/28/24 13:56 Active Medications: Current Medications Al Hydroxide/Mg Hydroxide (Magnesium Hydrox/Alum Hydrox 30 Ml Oral.Susp) 30 ml PO Q6H PRN PRN Reason: Heartburn/Nausea Amoxicillin/Clavulanate Potassium (Amoxicillin/Potassium Clav 875 Mg Tablet) 875 mg PO BID [facility] Last Admin: 12/16/24 21:29 Dose: 875 mg Erythromycin (Erythromycin Base 0.5% Oph Oin 1 Gm Tube) 1 cm EYE-BOTH QID [facility] Last Admin: 12/16/24 21:38 Dose: Not Given Lactated Ringer's (Lr) 1,000 mls @ 100 mls/hr IVCONT .Q10H [facility] Last Admin: 12/17/24 10:30 Dose: 100 mls/hr Lorazepam (Lorazepam 1 Mg Tablet) 1 mg PO TID [facility] Last Admin: 12/16/24 18:11 Dose: 1 mg Magnesium Hydroxide (Milk Of Magnesia 30 Ml Oral.Susp) 30 ml PO DAILY PRN PRN Reason: Constipation Multivitamins/Vitamin C (Multivitamin Tablet) 1 tab PO DAILY [facility] Last Admin: 12/16/24 09:20 Dose: 1 tab Home Medications ?Medication ?Instructions ?Recorded ?Confirmed ?Last Taken ?Type lamotrigine 25 mg tablet 25 mg PO BID 12/14/24 12/14/24 Unknown History multivitamin with folic acid 400 1 tab PO DAILY 12/14/24 12/14/24 Unknown History mcg tablet (Daily-Luh (with folic acid)) risperidone 1 mg tablet 1 mg PO BID 12/14/24 12/14/24 Unknown History Exam Height,Weight and Vital Signs: Height 6 ft Weight 96 kg Last Vital Signs Temp 98.2 F 12/17/24 10:26 Pulse 82 12/17/24 10:26 Resp 16 12/17/24 10:26 BP 114/77 12/17/24 10:26 Pulse Ox 99 12/17/24 10:26 O2 Del Method Room Air 12/17/24 10:26 Pertinent Lab Results Pertinent Lab Results: Laboratory Tests 12/15/24 07:54 WBC 8.1 RBC 4.02 L Hgb 12.1 L Hct 36.3 L MCV 90.3 MCH 30.1 MCHC 33.3 RDW 12.3 Plt Count 311 D MPV 9.9 Immature Gran % (Auto) 2.2 H Neut % (Auto) 51.5 Lymph % (Auto) 37.2 [place] % (Auto) 6.3 Eos % (Auto) 2.1 Baso % (Auto) 0.7 Lymph # (Auto) 3.0 [place] # (Auto) 0.5 Eos # (Auto) 0.2 Baso # (Auto) 0.1 Abs Immat Gran (auto) 0.18 H Absolute Neuts (auto) 4.1 Absolute Nucleated RBC 0.000 Nucleated RBC % (auto) 0.0 Sodium 142 Potassium 4.3 Chloride 106 Carbon Dioxide 28 Anion Gap 12 BUN 11 Creatinine 0.84 Estim Creat Clear Calc 162.9 Estimated GFR > 60 Random Glucose 85 Estimat Average Glucose 82 Hemoglobin A1c % 4.5 Calcium 10.0 Total Bilirubin 0.5 AST 40 H ALT 82 H Alkaline Phosphatase 47 Total Protein 7.1 Albumin 3.8 Triglycerides 30 Cholesterol 114 LDL Cholesterol, Calc 88 HDL Cholesterol 20 L Narrative Narrative: Answering questions appropriately and obeying commands Airway Mallampati Class: III TM Dist: >3cm Neck ROM: Full Loose/Missing/Broken Teeth: Yes (Missing molars) Heart: RRR Lungs: CTAB Assessment and Plan Assessment Anesthesia Assessment: Anesthesia Plan Discussed and Chart Reviewed Final Anesthetic Review Family History of Problems with Anesthesia: No History of Problems with Anesthesia: No NPO: Yes ASA Class: III Final Preanesthetic Review: No Changes in Pt Med Stat, Meds/Allgs Chart Reviewed, Consent Obtained/Reviewed and Anes Risks/Benef Reviewed Patient Risk: Intermediate Procedure Risk: Intermediate Assessment/Block/Sedation in SS: Assess/Block/Sedation-SS Anesthetic Plan Anesthetic Plan: GA Disposition: Standard PACU and Inp. Admit - Standard Bed
--- NOTE | 2024-12-17 12:29 | HO.ECTPROC ---
ECT Procedure Note Diagnosis/Treatment Date of Service: 12/17/24 Diagnosis: Catatonia Previous ECT Date: 12/14/24 Current Treatment Number: 3 Treatment: Series Interval Clinical Notes: no change in clinical status Time: Total time managing care of this patient today __60__ minutes. ECT Settings Device: THYMATRON DGx Electrode Placement: Bifrontal Program/Pulse Width: 0.50 Energy Percent: 75 Seizure Duration By EEG (in seconds): 114 Medications Administration General Anesthetic: Etomidate (16) Muscle Relaxant: Succinylcholine (100) Airway Management Airway Management: Bag Mask Ventilation Treatment Recommendations No Changes Recommended: No change Pt Tolerated Procedure w/o Issue: Yes
[2024-12-17] MEDS: Amoxicillin/Potassium Clav 875 MG TABLET PO ×2 (14:51→22:19)
[2024-12-17] MEDS: LORazepam 1 MG TABLET PO ×2 (14:51→22:20)
--- NOTE | 2024-12-17 17:21 | HO.PSYCHPN ---
Subjective Subjective Date of Service: 12/17/24 Reason For Visit: catatonia/psychosis/autism Subjective Notes: Section 8 Interim History: ECT treatment completed. Pt resting when seen. Denies current sx of concern. Asking for food/drink, provided. I'm OK. Medication Compliance: Yes Attending Groups: No Review of Systems Review of Systems Pt denies Mental Status Exam Mental Status Exam Patient Appearance: Appropriate Patient Orientation: Person, Place and Situation Level of Consciousness: Awake Patient Behavior: Appropriate, Cooperative and Passive Mood Description: Apathetic Affect Description: Blunted Patient Cognition Impaired: No Ability to Follow Directions: Fair Speech Pattern: Clear and Impoverished (slightly) Hallucinations: None Delusions: Not Present Thought Process: Intact and Goal Oriented Thought Content: positive for [place] Judgement: Fair Diagnostics Vital Signs (24Hr): Vital Signs - 24 hr 12/16/24 19:55 12/17/24 08:00 12/17/24 10:26 Temperature 98.5 F 97.6 F 98.2 F Pulse Rate 88 79 82 Respiratory Rate 15 16 16 Blood Pressure 112/55 L 97/50 L 114/77 Pulse Oximetry 97 100 99 Oxygen Delivery Method Room Air Oxygen Flow Rate 12/17/24 12:14 12/17/24 12:19 12/17/24 12:24 Temperature 97.3 F Pulse Rate 87 83 75 Respiratory Rate 19 20 18 Blood Pressure 143/84 H 122/71 117/70 Pulse Oximetry 99 98 98 Oxygen Delivery Method Nasal Cannula with ETCO2 Nasal Cannula with ETCO2 Nasal Cannula with ETCO2 Oxygen Flow Rate 2 2 2 12/17/24 12:29 12/17/24 12:44 12/17/24 12:59 Temperature 97.3 F Pulse Rate 77 106 H 100 Respiratory Rate 19 20 20 Blood Pressure 118/71 126/82 112/75 Pulse Oximetry 94 96 96 Oxygen Delivery Method Room Air Room Air Room Air Oxygen Flow Rate 12/17/24 13:00 Temperature 97.4 F Pulse Rate 88 Respiratory Rate 14 Blood Pressure 123/76 Pulse Oximetry 97 Oxygen Delivery Method Oxygen Flow Rate BMI result Body Mass Index 28.7 Labs 12/15/24 07:54 12/15/24 07:54 Medications Medications Current Medications Al Hydroxide/Mg Hydroxide (Magnesium Hydrox/Alum Hydrox 30 Ml Oral.Susp) 30 ml PO Q6H PRN PRN Reason: Heartburn/Nausea Amoxicillin/Clavulanate Potassium (Amoxicillin/Potassium Clav 875 Mg Tablet) 875 mg PO BID [facility] Last Admin: 12/17/24 14:51 Dose: 875 mg Lorazepam (Lorazepam 1 Mg Tablet) 1 mg PO TID [facility] Last Admin: 12/17/24 14:51 Dose: 1 mg Magnesium Hydroxide (Milk Of Magnesia 30 Ml Oral.Susp) 30 ml PO DAILY PRN PRN Reason: Constipation Multivitamins/Vitamin C (Multivitamin Tablet) 1 tab PO DAILY [facility] Last Admin: 12/17/24 14:56 Dose: Not Given Allergies Allergies Allergy/AdvReac Type Severity Reaction Status Date / Time No Known Allergies Allergy Verified 11/28/24 13:56 Assessment & Plan Assessment & Plan (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 12/16 - dc 1:1, pt requested ensure with meals- maybe be rebound hunger from not eating while catatonic. 12/17- continue plan of care Reason for continued inpatient stay Substantial Risk for: rapid decompensation Time Spent With Patient Time: Total time managing care of this patient today ____ minutes.
[2024-12-18 08:00] VITALS: BP 115/67; PULSE 77; RESP 16; TEMP 36.8; O2SAT 100
[2024-12-18] MEDS: LORazepam 1 MG TABLET PO ×3 (09:37→21:13)
[2024-12-18] MEDS: Multivitamin TABLET 1 TAB PO (09:37)
[2024-12-18] MEDS: Amoxicillin/Potassium Clav 875 MG TABLET PO ×2 (09:38→21:13)
--- NOTE | 2024-12-18 09:58 | HO.PSYCHPN ---
Subjective Subjective Date of Service: 12/18/24 Reason For Visit: catatonia/psychosis/autism Interim History: Met with patient; discussed with team; reviewed chart Patient remains significantly improved and perhaps with no residual catatonic symptoms. Patient eating, drinking, talking, walking and interacting appropriately (keeping in mind ASD) Patient does not remember any of the events preceding this admission or during until getting to the psychiatric floor; catatonia and treatment explained to patient and he is amenable to continuing with ECT and benzodiazepines. Patient says he feels back to his regular self in his father was present, says he thinks so too. Patient denies any psychotic symptoms at all Although patient is much improved, he remained significantly vulnerable to return of catatonic symptoms. Discussed with Dr. Lira who agrees to Continue with ECT on 12/19 and 12/21 so as to prevent any return of catatonic symptoms; will continue with Ativan but likely further taper at some point. Will continue to assess. Regarding guardianship, at this time lyric writer does not see a need for patient to have a guardian. Mental Status Exam Mental Status Exam Narrative: Pt is alert and oriented; behavior is cooperative, friendly and calm; without any catatonic symptoms; sometimes an odd grimace; patient is not in distress; dressed in casual attire with unkempt hair but adequate hygiene; mood is described as good and affect congruent; eye contact a little avoidant; Speech is minimal but normal rate, volume and prosody and not pressured; no psychomotor agitation/retardation present; thought process is goal directed, concrete; Thought content is on whatever is at hand, appropriate; no delusional ideations expressed; denies any SI/HI. Denies AVH; not clear if patient appears internally preoccupied Patients insight and judgment impaired but improved; not sure patient's baseline Diagnostics Vital Signs (24Hr): Vital Signs - 24 hr 12/17/24 10:26 12/17/24 12:14 12/17/24 12:19 Temperature 98.2 F 97.3 F Pulse Rate 82 87 83 Respiratory Rate 16 19 20 Blood Pressure 114/77 143/84 H 122/71 Pulse Oximetry 99 99 98 Oxygen Delivery Method Room Air Nasal Cannula with ETCO2 Nasal Cannula with ETCO2 Oxygen Flow Rate 2 2 12/17/24 12:24 12/17/24 12:29 12/17/24 12:44 Temperature Pulse Rate 75 77 106 H Respiratory Rate 18 19 20 Blood Pressure 117/70 118/71 126/82 Pulse Oximetry 98 94 96 Oxygen Delivery Method Nasal Cannula with ETCO2 Room Air Room Air Oxygen Flow Rate 2 12/17/24 12:59 12/17/24 13:00 12/17/24 20:00 Temperature 97.3 F 97.4 F 98.6 F Pulse Rate 100 88 96 Respiratory Rate 20 14 Blood Pressure 112/75 123/76 112/63 Pulse Oximetry 96 97 98 Oxygen Delivery Method Room Air Room Air Oxygen Flow Rate BMI result Body Mass Index 28.7 Labs 12/15/24 07:54 12/15/24 07:54 Medications Medications Current Medications Al Hydroxide/Mg Hydroxide (Magnesium Hydrox/Alum Hydrox 30 Ml Oral.Susp) 30 ml PO Q6H PRN PRN Reason: Heartburn/Nausea Amoxicillin/Clavulanate Potassium (Amoxicillin/Potassium Clav 875 Mg Tablet) 875 mg PO BID [facility] Last Admin: 12/18/24 09:38 Dose: 875 mg Lorazepam (Lorazepam 1 Mg Tablet) 1 mg PO TID [facility] Last Admin: 12/18/24 09:37 Dose: 1 mg Magnesium Hydroxide (Milk Of Magnesia 30 Ml Oral.Susp) 30 ml PO DAILY PRN PRN Reason: Constipation Multivitamins/Vitamin C (Multivitamin Tablet) 1 tab PO DAILY [facility] Last Admin: 12/18/24 09:37 Dose: 1 tab Allergies Allergies Allergy/AdvReac Type Severity Reaction Status Date / Time No Known Allergies Allergy Verified 11/28/24 13:56 Assessment & Plan Assessment & Plan (1) 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 Pt transferred to medical floor from ICU for continued IV benzodiazepines, IV fluids, TPN. Patient court-ordered treatment including ECT. Once patient received ECT he started coming out of catatonic symptoms Initial Impression: It is difficult to know the etiology of catatonia. People with autism, psychotic disorders, or taking a antipsychotic medications are all at increased risk for catatonia and patient has all 3 risk factors (so it seems). Again from collateral it sounds very possible that catatonic symptoms started in the community in the week prior to this admission. Here at [facility] with IV benzodiazepines,, patient had observed but minimal improvement with IV diazepam; now on IV Ativan with some additional improvement. Discussed case thoroughly with Dr. Lira who agrees that current treatment plan of IV Ativan as both appropriate and necessary treatment to resolve catatonia and prevent malignant catatonia. General Education Instructor has discussed the possibility of patient needing ECT treatment if IV benzos do not adequately resolve symptoms; family remains cautious about ECT but seems to understand that this could be necessary. After receiving collateral from patient's mother (see below), it seems that patient was demonstrating significant changes in his behavior, very different from his normal way of functioning and his normal expressions of autism. That said , some other family members perspective is with discrepancy from mother's collateral so it is not totally clear. But per the mother, The behavioral changes described sound like prodrome of schizophrenia. Patient's father also observed patient responding to internal stimuli, also very different from his normal expressions. General Education Instructor met with and discussed case with patient's father and then talked with patient's mother who currently lives in [place]. Collateral from patient's mother, Cliff, ([phone]) ASD; IEP, honors classes, working; spelling [employer]; graduated [employer]; -around 22 years old, seemed more reclusive and pt started changing -lost job September 2022; missing days, not focused; got fired at next job for going too slow -a year ago, less ADL's, not showering, less motivation, mom thinking more than just ASD since not like this at all in [employer] -Refusing to go to appointments. Got him to ED and psych doctor evaluated but was not able to be Sectioned; mom tried other times to get him to doctor, to hospital, but police felt did not meet criteria to section him... -still minimal ADL's; in Fall 2023 started sleeping outside in the park which again, out of character -Jul 2024 making slow movements, like in slow motion, but able to pull out of it; kept sleeping outside in front of her door, peeing on himself or in bottles. -Episodes of staring off and not responding; intermittently would look agitated -Mom sent him to [facility] to be with father -no hx of drug/alcohol use -had gone 36 hours w/out sleep, but not hyperactive, withdrawn and either quiet on laptop or making lots of food but not eating -no seizure hx -no hx of medication Hospital course: Initially patient admitted to for psychosis; quickly developed severe catatonia, rigidity, not eating or drinking or moving or talking at all. Moved to medical floor and then ICU for IV benzos: 1.Initially Patient was 1st sent from to the medical floor. Due to national shortage of liquid Ativan, He received midazolam 2 mg IV however patient had no response. He was then given diazepam 10 mg IV and within 30 seconds, he relaxed his muscles, folded his arms, turned over on his side and moved his legs, 1st natural movements observed for several days. General Education Instructor collaborated with Dr. Lira and after literature review, both agreed that patient required immediate IV diazepam treatment to prevent patient from progressing towards a malignant catatonia; since patient had demonstrated initial response to diazepam he should be continued on diazepam; the literature recommends diazepam IV infusion at 10mg/500ml saline at 1.25mg/hour; diazepam infusion not available per hospital formulary so agreed to diazepam 2.5 mg IV push q.2 hours. 2)Hospitalist team/medical floor nursing staff felt patient should be observed on ICU for this administration and he was transferred to the ICU. In the ICU, Patient treated with IV Diazepam for about 36 hours with limited effect, with rigidity having resolved (and periodically briefly opening his eyes) but other symptoms of catatonia remaining including, not following verbal commands and negativism (resistance of examine his manipulation with equal strength). Team agreed to switch from diazepam to Ativan 2 mg IV q.i.d.. After about 12 hours patient improved some more, responding to noxious stimuli/sternal rub and grimaced and actively pushed examiner's hand away. After about 36 hours give or take, dose increase to Ativan 2 mg IV q4H. Patient able to be transferred back to the medical floor. 3) patient on medical floor receiving Ativan 2 mg IV q4h. He remains in the bed with his eyes closed, not responding to verbal commands but is overall moving all limbs more naturally on his own. Negative his remains. ICU 12/06 Patient remains with same minimal improvement observed when starting diazepam; he is moving on his own a little more naturally though still minimally. Will appeared to be trying to open his eyes sometimes when his name is called. Continues with negativism however otherwise is not rigid. General Education Instructor met with patient's father and stepmother Debra. Initially family expressed dissatisfaction with treatment and wanted patient transferred to [facility]. Dr. Jiang reached out to [facility] to discuss case and they declined to take patient at this time, not having a bed available and also not being able to provide ECT should patient require it. Patient's family accepted this. General Education Instructor again spent about an hour providing education on catatonia, its causes and its treatments, including ECT; explained ECT procedure as well. Dr. Lira also provided the family with printed out literature regarding these topics, including ECT. After discussion, patient's family seemed to agree with current treatment plan of continuing with benzodiazepines. Since patient had only a minimal response to IV diazepam, decision was made to switch to IV Ativan to see if this would be more effective; also discussed with family who agreed with this plan. General Education Instructor again offered to talk with family member who is a neurologist and gave them lyric writer's contact information to pass along. 12/07 some change in presentation as patient now responsive to noxious stimuli/chest rub, grimacing and pushing examiner's hand away. General Education Instructor and Dr. Lira agree this is improvement and evidence that Ativan is helping (progression: rigidity and no response to noxious stimuli -- progressed to absence of rigidity but still no response to noxious stimuli--progressed to now, pt with active response to noxious stimuli). -Literature reviewed and after team discussion agreed to increase IV Ativan to 2 mg q.4h -brain MRI unremarkable -Discussed with Dr. Jiang who felt patient could be safely transferred back to medical floor out of ICU; family informed Medical floor: 12/08 patient remains catatonic, not opening his eyes, not responding to any verbal interactions; remains with negativism; however is moving increasingly or naturally on his own. Discussed with dr. Ernandez. -continue with Ativan 2 mg q4h for now 12/09 Last night/early AM pt spiked fever 105, tachy, tachypneic. Treated with abx, cooling blanket, rectal acetaminophen; CXR negative. Temp came down and pt only mildly tachy; RR 18. Also...This morning, pt woke up, talked with Dr. Ernandez and asked for a sandwich; a little later with nurse, he knew his name, and that he was at [facility]. Later in day, on approach, pt sleeping, sometimes yawning; did not wake up to speaking his name; lyric writer did not do sternal rub -tried to test for rigidity but not able to assess since pt's remains w/ negativism (catatonic symptom of resisting examiner w/ equal force) but pt appears to be moving around easily enough on his own. -did not really at risk for NMS since pt only on Diazepam T:99.4 (on cooling blanket) BP:112/68 O2 96% HR 98 RR: 18 lips appear swollen UA unremarkable CXR unremarkable negative covid/rsv/flu General Education Instructor discussed case with Dr. Lira; lyric writer Discussed case with Dr. Ernandez regarding blood cultures/LP; at this time Dr. Ernandez would like to continue monitoring but advance to LP if patient does not improve. Hospital ran out of Ativan; will switch back to diazepam Impression: Despite the fact that patient spiked a fever and was tachy and tachypneic, the fact that he woke up, was talking, interacting oriented to self and place was very encouraging. Ativan seems to have been more effective than diazepam and remains preferred, however diazepam has had some positive effect. Patient being worked up for infectious etiology, though he does not appear ill looking. It is possible that fever, increased heart rate respiratory rate was a brief crossing into a malignant catatonia; will continue with current treatment plan; ECT remains consider most effective treatment however need court order 12/11 LP so far mostly negative with a few parameters still pending; Afebrile and vitals WNL Patient remains with eyes closed but is moving his body and head around on his own; sometimes role in his head around and around. Still does not respond to verbal stimuli. Waxy flexibility noted; initially only minimal negativeism however this increased with examiners manipulations. Has not open his eyes or talked since Friday 12/08 (per father patient also talked with his mother on the phone, talked with his grandmother). -discussed with pharmacist and some additional Ativan has been procured though in a very limited supply; will restart Ativan IV -of note diazepam infusion is not possible per pharmacy -would also consider memantine, though must be taken p.o. Impression: Patient has certainly improved with IV benzodiazepines, lorazepam seeming to be the most effective. However he remains with severe catatonia. Although he open his eyes and spoke briefly, he has not done so for 3 days and for the past 3 days he has remained with eyes closed, nonverbal, not responding to verbal cues, not eating, not drinking. Thus far, workup for infection has been unremarkable, with only a few LP labs still pending. Because no infectious process can be identified patient is episode of fever, tachycardia and tachypnea remain concerning for possible brief transitioned into malignant catatonia. Currently patient is afebrile and vitals WNL however the risks increase the longer catatonia persists and ECT remains the most viable treatment option -court scheduled for today 12/12 ECT today. Discussed case in detail with Dr. Lira who agreed with proceeding to ECT for following reasons: 1. He remains with Severe catatonia; he is not eating, drinking, talking or opening his eyes, responding to verbal stimuli or getting out of bed; he cannot communicate or receive information; he continues to need IV fluids, nutrition without which he would go into organ failure and . 2. This past weekend, he became febrile with a temperature spiking to 105 degrees; he was tachycardic to 133, tachypneic to 22 RR? temperature lowered but he remained febrile for the next day...... After thorough workup which included an LP, chest x-ray, UA, RSV/COVID/flu? no infectious process identified, other than possible sinusitis. Was this episode of autonomic dysregulation a brief crossover into malignant catatonia? Concern for patients condition to turn malignant increases the longer catatonia persists. 3. The longer a person remains catatonic the harder it becomes to resolve it. Prolonged catatonia correlates with higher risk of serious medical complications, including ?and include the risks associated with continuous IV, S[place], and being bed bound. A person can rapidly deteriorate despite being on benzodiaepines. 4. Literature recommends a Switch to ECT when: Lorazepam (Ativan) fails after 3?5 days of adequate dosing (e.g., 6?12 mg/day) to prevent poor outcome (Electroconvulsive therapy in catatonic patients: Efficacy and predictors of response (2015)) -Will continue with ECT [facility] Will treat with Diazepam 5mg IV TID to treat for Benzo withdrawal and to treat catatonia; as pt improves, will taper benzo 12/13 Patient open his eyes, started answering questions by nodding his head and remained so throughout the day. General Education Instructor explained patient's condition and treatment though doubtful patient understood much of it. General Education Instructor gave him 2 doses of IV Ativan 2 mg which seemed to help because Later on lyric writer was informed the patient was again talking, eating and drinking. ECT tomorrow but if patient remains much improved, maybe able to return to the psychiatric unit -discussed case with Dr. Serrano and Dr. Lira and will continue benzos both to help make sure catatonia does not return and to avoid benzo withdrawal RETURNED TO PSYCH UNIT M5 (12/14): Patient significantly improved, walking, talking, eating, drinking and moving about. Patient was able to return to the psych floor. Plan is to continue ECT doing better on ativan 1mg tid, on 1:1 eating- some odd behaviors but no longer fully catatonic! 12/16 - dc 1:1, pt requested ensure with meals- maybe be rebound hunger from not eating while catatonic. reports fine no clear report from patient of prior days when he was catatonic- but now sleeping, eating and drinking fluids- denies si/hi/psychosis- refused ativan this am but couldn't say why - When asked about student/work - he says he had a job in [place]- Case discussed with dr Lira who feels ECT helped- when ativan hadn't now doing well on on current ativan- no longer need for 1:1 12/18 Patient remains significantly improved and perhaps with no residual catatonic symptoms. Patient eating, drinking, talking, walking and interacting appropriately (keeping in mind ASD) Patient does not remember any of the events preceding this admission or during until getting to the psychiatric floor; catatonia and treatment explained to patient and he is amenable to continuing with ECT and benzodiazepines. Patient says he feels back to his regular self in his father was present, says he thinks so too. Patient denies any psychotic symptoms at all Although patient is much improved, he remained significantly vulnerable to return of catatonic symptoms. Discussed with Dr. Lira who agrees to Continue with ECT on 12/19 and 12/21 so as to prevent any return of catatonic symptoms; will continue with Ativan but likely further taper at some point. Will continue to assess. Regarding guardianship, at this time lyric writer does not see a need for patient to have a guardian. Currently however patient has no outpatient providers and no where to live; where patient to be discharged now he would likely become quickly impaired Impression: Thankfully catatonic symptoms have fully resolved; will continue with ECT and benzo treatment for now and continually reassess. Regarding recent diagnosis of schizophrenia from other hospitalization and from collateral: Currently patient denies any psychotic symptoms. Patient has autistic spectrum disorder, which some of the symptoms can present similar to being internally preoccupied.... Will continue to monitor. At this time will continue with schizophrenic diagnosis but leave it as provisional Plan: q5's SECTION 8/8a; court-ordered ECT and medications Continue Ativan 1 mg t.i.d. p.o. for both benzo withdrawal and to avoid any return of catatonic symptoms ECT MWF (Court ordered; pt on Section 8/8a) ECT #1 on 12/12 ECT #2 on 12/14 ECT #3 on 12/17 ECT #4 pending 12/19 Patient educated on: diagnosis, medication risk/benefits and ECT Informed Consent: understands, does not understand and further education needed Reason for continued inpatient stay Substantial Risk for: inability to function Time Spent With Patient Time: Total time managing care of this patient today ____ minutes.
[2024-12-18 20:00] VITALS: BP 116/55; PULSE 88; RESP 16; TEMP 36.4; O2SAT 98
--- NOTE | 2024-12-18 21:05 | PC.NURSE ---
Spoke with Mimi Nassar via tiger text. Stated it was OK to give Ativan tonight even though patient will have ECT on 12/19/2024
[2024-12-19] VITALS (10 sets, daily range): BP systolic 117–129; BP diastolic 63–79; PULSE 80–91; RESP 15–18; TEMP 36.3–36.7; O2SAT 95–100
--- NOTE | 2024-12-19 06:52 | HO.ANESPROP2 ---
HPI - Anesthesia Eval Consult details Narrative: For ECT PMFSH Active Problems Active Problems: All Active Problems Fever, unknown origin (Acute) Catatonia (Acute) Schizophrenia (Acute) Autism spectrum disorder (Acute) Psychiatric illness (Acute) Past Medical History Medical History Fever, unknown origin Autism spectrum disorder Family History Family history of problems with anesthesia: No Surgical History History of Problems with Anesthesia: No Social History Social History Household Members: None Household Members Other:: pt is admit fr M# for catatonia, not response to questions, JULIO CESAR Housing: Homeless Do you presently have visiting nurse or other home services: No Comment: 1:1 sitter at bedside Patient Tobacco Use Status: Never used Tobacco e-Cigarette/Vaping Use: Never Used Second Hand Smoke Exposure: No Use of substances other than those prescribed or required for medical reasons: No Currently Displaying Signs/Symptoms of Drug Intoxication Withdrawal: No Any prior treatment program specific to substance use: No Spiritual Healthcare Practices: unable to participate Quaker Healthcare Practices: unable to participate Cultural Healthcare Practices: unable to participate Advance Directives: No Advance Directives Information Provided: Yes Do you have thoughts of harming others: None Do you have a plan to hurt others: No Plan Recently lost weight without trying: Unsure Poor oral hygiene: No service: No Sexual orientation: Decline to Answer Meds Allergies Allergy/AdvReac Type Severity Reaction Status Date / Time No Known Allergies Allergy Verified 11/28/24 13:56 Active Medications: Current Medications Al Hydroxide/Mg Hydroxide (Magnesium Hydrox/Alum Hydrox 30 Ml Oral.Susp) 30 ml PO Q6H PRN PRN Reason: Heartburn/Nausea Amoxicillin/Clavulanate Potassium (Amoxicillin/Potassium Clav 875 Mg Tablet) 875 mg PO BID [facility] Last Admin: 12/18/24 21:13 Dose: 875 mg Lorazepam (Lorazepam 1 Mg Tablet) 1 mg PO TID [facility] Last Admin: 12/18/24 21:13 Dose: 1 mg Magnesium Hydroxide (Milk Of Magnesia 30 Ml Oral.Susp) 30 ml PO DAILY PRN PRN Reason: Constipation Multivitamins/Vitamin C (Multivitamin Tablet) 1 tab PO DAILY [facility] Last Admin: 12/18/24 09:37 Dose: 1 tab Home Medications ?Medication ?Instructions ?Recorded ?Confirmed ?Last Taken ?Type lamotrigine 25 mg tablet 25 mg PO BID 12/14/24 12/14/24 Unknown History multivitamin with folic acid 400 1 tab PO DAILY 12/14/24 12/14/24 Unknown History mcg tablet (Daily-Luh (with folic acid)) risperidone 1 mg tablet 1 mg PO BID 12/14/24 12/14/24 Unknown History Exam Height,Weight and Vital Signs: Height 6 ft Weight 96 kg Last Vital Signs Temp 97.6 F 12/18/24 20:00 Pulse 88 12/18/24 20:00 Resp 16 12/18/24 20:00 BP 116/55 L 12/18/24 20:00 Pulse Ox 98 12/18/24 20:00 O2 Del Method Room Air 12/18/24 20:00 O2 Flow Rate 2 12/17/24 12:24 Pertinent Lab Results Pertinent Lab Results: Laboratory Tests 12/15/24 07:54 WBC 8.1 RBC 4.02 L Hgb 12.1 L Hct 36.3 L MCV 90.3 MCH 30.1 MCHC 33.3 RDW 12.3 Plt Count 311 D MPV 9.9 Immature Gran % (Auto) 2.2 H Neut % (Auto) 51.5 Lymph % (Auto) 37.2 Andrews % (Auto) 6.3 Eos % (Auto) 2.1 Baso % (Auto) 0.7 Lymph # (Auto) 3.0 Andrews # (Auto) 0.5 Eos # (Auto) 0.2 Baso # (Auto) 0.1 Abs Immat Gran (auto) 0.18 H Absolute Neuts (auto) 4.1 Absolute Nucleated RBC 0.000 Nucleated RBC % (auto) 0.0 Sodium 142 Potassium 4.3 Chloride 106 Carbon Dioxide 28 Anion Gap 12 BUN 11 Creatinine 0.84 Estim Creat Clear Calc 162.9 Estimated GFR > 60 Random Glucose 85 Estimat Average Glucose 82 Hemoglobin A1c % 4.5 Calcium 10.0 Total Bilirubin 0.5 AST 40 H ALT 82 H Alkaline Phosphatase 47 Total Protein 7.1 Albumin 3.8 Triglycerides 30 Cholesterol 114 LDL Cholesterol, Calc 88 HDL Cholesterol 20 L Airway Mallampati Class: II TM Dist: >3cm Neck ROM: Full Loose/Missing/Broken Teeth: No Heart: ok Lungs: ok Assessment and Plan Assessment Anesthesia Assessment: Anesthesia Plan Discussed and Chart Reviewed Final Anesthetic Review Family History of Problems with Anesthesia: No History of Problems with Anesthesia: No NPO: Yes ASA Class: III Final Preanesthetic Review: No Changes in Pt Med Stat, Meds/Allgs Chart Reviewed, Consent Obtained/Reviewed and Anes Risks/Benef Reviewed Patient Risk: Intermediate Procedure Risk: Intermediate Anesthetic Plan Anesthetic Plan: GA and Agree w/ Assess. and Plan Disposition: Standard PACU
[2024-12-19] MEDS: Lactated Ringers 1,000 ML 100 ML IVCONT (06:59)
--- NOTE | 2024-12-19 07:28 | MHC.SHP ---
Pre-Procedural Eval Section A - 24 Hr Update-Section A only Date of Service: 12/19/24 The patient is an INPATIENT: Yes Changes since office visit: Yes Cold of Flu in the past 2 weeks and Yes Patient answered all questions; No New Medical Problems and No Changes in Medication The patient has been examined within 24 hours of the surgical procedure. The History & Physical has been completed within 30 days and I have reviewed it.: Yes Section B - Complete if H&P > 30 days Chief Complaint: catatonia/psychosis/autism Allergies: Allergies Allergy/AdvReac Type Severity Reaction Status Date / Time No Known Allergies Allergy Verified 11/28/24 13:56 Plan I have reviewed the history and physical and performed a pertinent physical examination on my patient. No changes have occurred unless specified. Time Spent With Patient Time: Total time managing care of this patient today ____ minutes.
--- NOTE | 2024-12-19 07:29 | HO.ECTPROC ---
ECT Procedure Note Diagnosis/Treatment Date of Service: 12/19/24 Diagnosis: Catatonia Previous ECT Date: 12/14/24 Current Treatment Number: 4 Treatment: Series Interval Clinical Notes: no change in clinical status much improved verbal engaged Time: Total time managing care of this patient today ____ minutes. ECT Settings Device: THYMATRON DGx Electrode Placement: Bifrontal Program/Pulse Width: 0.50 Energy Percent: 65 Seizure Duration By EEG (in seconds): 61 Medications Administration General Anesthetic: Etomidate (16) Muscle Relaxant: Succinylcholine (100) Airway Management Airway Management: Bag Mask Ventilation Treatment Recommendations No Changes Recommended: No change Notes: inc succ 120 mg Pt Tolerated Procedure w/o Issue: Yes
--- NOTE | 2024-12-19 09:09 | HO.PSYCHPN ---
Subjective Subjective Date of Service: 12/19/24 Reason For Visit: catatonia/psychosis/autism Interim History: Met with patient; discussed with team Patient says he is doing well. He remains feeling like his normal self. Patient continues to deny any AH or paranoid ideations and says he does not remember having any of these before. He says he finds the atmosphere on the unit to be pretty good and has no complaints. Patient asked about ECT, how much more he is going to get and agrees to treatment plan. Discussed post discharge and patient said he liked living in [place] and is considering going back to his mother's there but wonders if staying here might be easier. He said he also is considering going to his aunt's house in [place]. Mental Status Exam Mental Status Exam Narrative: Pt is alert and oriented; behavior is cooperative, friendly and calm; without any catatonic symptoms; sometimes an odd grimace; patient is not in distress; dressed in casual attire with unkempt hair but adequate hygiene; mood is described as well and affect congruent; eye contact a little avoidant; Speech is minimal but normal rate, volume and prosody and not pressured; no psychomotor agitation/retardation present; thought process is goal directed, concrete; Thought content is on whatever is at hand, appropriate; no delusional ideations expressed; denies any SI/HI. Denies AVH; not clear if patient appears internally preoccupied Patients insight and judgment improved and possibly adequate; not sure patient's baseline Diagnostics Vital Signs (24Hr): Vital Signs - 24 hr 12/18/24 20:00 12/19/24 06:56 12/19/24 07:57 Temperature 97.6 F 97.6 F 97.7 F Pulse Rate 88 84 87 Respiratory Rate 16 15 18 Blood Pressure 116/55 L 120/79 123/63 Pulse Oximetry 98 100 95 Oxygen Delivery Method Room Air Room Air Room Air 12/19/24 08:00 12/19/24 08:05 12/19/24 08:10 Temperature Pulse Rate 91 86 83 Respiratory Rate 18 18 18 Blood Pressure 123/68 129/74 123/70 Pulse Oximetry 95 95 95 Oxygen Delivery Method Room Air Room Air Room Air 12/19/24 08:25 12/19/24 08:33 12/19/24 08:57 Temperature 97.4 F 97.7 F Pulse Rate 85 90 80 Respiratory Rate 18 18 Blood Pressure 118/66 117/69 118/68 Pulse Oximetry 95 95 98 Oxygen Delivery Method Room Air Room Air Room Air BMI result Body Mass Index 28.7 Labs 12/15/24 07:54 12/15/24 07:54 Medications Medications Current Medications Al Hydroxide/Mg Hydroxide (Magnesium Hydrox/Alum Hydrox 30 Ml Oral.Susp) 30 ml PO Q6H PRN PRN Reason: Heartburn/Nausea Amoxicillin/Clavulanate Potassium (Amoxicillin/Potassium Clav 875 Mg Tablet) 875 mg PO BID [facility] Last Admin: 12/18/24 21:13 Dose: 875 mg Lactated Ringer's (Lr) 1,000 mls @ 100 mls/hr IVCONT .Q10H [facility] Last Admin: 12/19/24 06:59 Dose: 100 mls/hr Lorazepam (Lorazepam 1 Mg Tablet) 1 mg PO TID [facility] Last Admin: 12/18/24 21:13 Dose: 1 mg Magnesium Hydroxide (Milk Of Magnesia 30 Ml Oral.Susp) 30 ml PO DAILY PRN PRN Reason: Constipation Multivitamins/Vitamin C (Multivitamin Tablet) 1 tab PO DAILY [facility] Last Admin: 12/18/24 09:37 Dose: 1 tab Allergies Allergies Allergy/AdvReac Type Severity Reaction Status Date / Time No Known Allergies Allergy Verified 11/28/24 13:56 Assessment & Plan Assessment & Plan (1) 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 Pt transferred to medical floor from ICU for continued IV benzodiazepines, IV fluids, TPN. Patient court-ordered treatment including ECT. Once patient received ECT he started coming out of catatonic symptoms Initial Impression: It is difficult to know the etiology of catatonia. People with autism, psychotic disorders, or taking a antipsychotic medications are all at increased risk for catatonia and patient has all 3 risk factors (so it seems). Again from collateral it sounds very possible that catatonic symptoms started in the community in the week prior to this admission. Here at [facility] with IV benzodiazepines,, patient had observed but minimal improvement with IV diazepam; now on IV Ativan with some additional improvement. Discussed case thoroughly with Dr. Lira who agrees that current treatment plan of IV Ativan as both appropriate and necessary treatment to resolve catatonia and prevent malignant catatonia. Print And Pattern Designer has discussed the possibility of patient needing ECT treatment if IV benzos do not adequately resolve symptoms; family remains cautious about ECT but seems to understand that this could be necessary. After receiving collateral from patient's mother (see below), it seems that patient was demonstrating significant changes in his behavior, very different from his normal way of functioning and his normal expressions of autism. That said , some other family members perspective is with discrepancy from mother's collateral so it is not totally clear. But per the mother, The behavioral changes described sound like prodrome of schizophrenia. Patient's father also observed patient responding to internal stimuli, also very different from his normal expressions. Print And Pattern Designer met with and discussed case with patient's father and then talked with patient's mother who currently lives in [place]. Collateral from patient's mother, Cliff, ([phone]) ASD; IEP, honors classes, working; spelling [employer]; graduated [employer]; -around 22 years old, seemed more reclusive and pt started changing -lost job September 2022; missing days, not focused; got fired at next job for going too slow -a year ago, less ADL's, not showering, less motivation, mom thinking more than just ASD since not like this at all in [place] -Refusing to go to appointments. Got him to ED and psych doctor evaluated but was not able to be Sectioned; mom tried other times to get him to doctor, to hospital, but police felt did not meet criteria to section him... -still minimal ADL's; in Fall 2023 started sleeping outside in the park which again, out of character -Jul 2024 making slow movements, like in slow motion, but able to pull out of it; kept sleeping outside in front of her door, peeing on himself or in bottles. -Episodes of staring off and not responding; intermittently would look agitated -Mom sent him to [place] to be with father -no hx of drug/alcohol use -had gone 36 hours w/out sleep, but not hyperactive, withdrawn and either quiet on laptop or making lots of food but not eating -no seizure hx -no hx of medication Hospital course: Initially patient admitted to for psychosis; quickly developed severe catatonia, rigidity, not eating or drinking or moving or talking at all. Moved to medical floor and then ICU for IV benzos: 1.Initially Patient was 1st sent from to the medical floor. Due to national shortage of liquid Ativan, He received midazolam 2 mg IV however patient had no response. He was then given diazepam 10 mg IV and within 30 seconds, he relaxed his muscles, folded his arms, turned over on his side and moved his legs, 1st natural movements observed for several days. Print And Pattern Designer collaborated with Dr. Lira and after literature review, both agreed that patient required immediate IV diazepam treatment to prevent patient from progressing towards a malignant catatonia; since patient had demonstrated initial response to diazepam he should be continued on diazepam; the literature recommends diazepam IV infusion at 10mg/500ml saline at 1.25mg/hour; diazepam infusion not available per hospital formulary so agreed to diazepam 2.5 mg IV push q.2 hours. 2)Hospitalist team/medical floor nursing staff felt patient should be observed on ICU for this administration and he was transferred to the ICU. In the ICU, Patient treated with IV Diazepam for about 36 hours with limited effect, with rigidity having resolved (and periodically briefly opening his eyes) but other symptoms of catatonia remaining including, not following verbal commands and negativism (resistance of examine his manipulation with equal strength). Team agreed to switch from diazepam to Ativan 2 mg IV q.i.d.. After about 12 hours patient improved some more, responding to noxious stimuli/sternal rub and grimaced and actively pushed examiner's hand away. After about 36 hours give or take, dose increase to Ativan 2 mg IV q4H. Patient able to be transferred back to the medical floor. 3) patient on medical floor receiving Ativan 2 mg IV q4h. He remains in the bed with his eyes closed, not responding to verbal commands but is overall moving all limbs more naturally on his own. Negative his remains. ICU 12/06 Patient remains with same minimal improvement observed when starting diazepam; he is moving on his own a little more naturally though still minimally. Will appeared to be trying to open his eyes sometimes when his name is called. Continues with negativism however otherwise is not rigid. Print And Pattern Designer met with patient's father and stepmother Debra. Initially family expressed dissatisfaction with treatment and wanted patient transferred to [facility]. Dr. Jiang reached out to [facility] to discuss case and they declined to take patient at this time, not having a bed available and also not being able to provide ECT should patient require it. Patient's family accepted this. Print And Pattern Designer again spent about an hour providing education on catatonia, its causes and its treatments, including ECT; explained ECT procedure as well. Dr. Lira also provided the family with printed out literature regarding these topics, including ECT. After discussion, patient's family seemed to agree with current treatment plan of continuing with benzodiazepines. Since patient had only a minimal response to IV diazepam, decision was made to switch to IV Ativan to see if this would be more effective; also discussed with family who agreed with this plan. Print And Pattern Designer again offered to talk with family member who is a neurologist and gave them automobile and property underwriter's contact information to pass along. 12/07 some change in presentation as patient now responsive to noxious stimuli/chest rub, grimacing and pushing examiner's hand away. Print And Pattern Designer and Dr. Lira agree this is improvement and evidence that Ativan is helping (progression: rigidity and no response to noxious stimuli -- progressed to absence of rigidity but still no response to noxious stimuli--progressed to now, pt with active response to noxious stimuli). -Literature reviewed and after team discussion agreed to increase IV Ativan to 2 mg q.4h -brain MRI unremarkable -Discussed with Dr. Jiang who felt patient could be safely transferred back to medical floor out of ICU; family informed Medical floor: 12/08 patient remains catatonic, not opening his eyes, not responding to any verbal interactions; remains with negativism; however is moving increasingly or naturally on his own. Discussed with dr. Ernandez. -continue with Ativan 2 mg q4h for now 12/09 Last night/early AM pt spiked fever 105, tachy, tachypneic. Treated with abx, cooling blanket, rectal acetaminophen; CXR negative. Temp came down and pt only mildly tachy; RR 18. Also...This morning, pt woke up, talked with Dr. Ernandez and asked for a sandwich; a little later with nurse, he knew his name, and that he was at [facility]. Later in day, on approach, pt sleeping, sometimes yawning; did not wake up to speaking his name; automobile and property underwriter did not do sternal rub -tried to test for rigidity but not able to assess since pt's remains w/ negativism (catatonic symptom of resisting examiner w/ equal force) but pt appears to be moving around easily enough on his own. -did not really at risk for NMS since pt only on Diazepam T:99.4 (on cooling blanket) BP:112/68 O2 96% HR 98 RR: 18 lips appear swollen UA unremarkable CXR unremarkable negative covid/rsv/flu Print And Pattern Designer discussed case with Dr. Lira; automobile and property underwriter Discussed case with Dr. Ernandez regarding blood cultures/LP; at this time Dr. Ernandez would like to continue monitoring but advance to LP if patient does not improve. Hospital ran out of Ativan; will switch back to diazepam Impression: Despite the fact that patient spiked a fever and was tachy and tachypneic, the fact that he woke up, was talking, interacting oriented to self and place was very encouraging. Ativan seems to have been more effective than diazepam and remains preferred, however diazepam has had some positive effect. Patient being worked up for infectious etiology, though he does not appear ill looking. It is possible that fever, increased heart rate respiratory rate was a brief crossing into a malignant catatonia; will continue with current treatment plan; ECT remains consider most effective treatment however need court order 12/11 LP so far mostly negative with a few parameters still pending; Afebrile and vitals WNL Patient remains with eyes closed but is moving his body and head around on his own; sometimes role in his head around and around. Still does not respond to verbal stimuli. Waxy flexibility noted; initially only minimal negativeism however this increased with examiners manipulations. Has not open his eyes or talked since Friday 12/08 (per father patient also talked with his mother on the phone, talked with his grandmother). -discussed with pharmacist and some additional Ativan has been procured though in a very limited supply; will restart Ativan IV -of note diazepam infusion is not possible per pharmacy -would also consider memantine, though must be taken p.o. Impression: Patient has certainly improved with IV benzodiazepines, lorazepam seeming to be the most effective. However he remains with severe catatonia. Although he open his eyes and spoke briefly, he has not done so for 3 days and for the past 3 days he has remained with eyes closed, nonverbal, not responding to verbal cues, not eating, not drinking. Thus far, workup for infection has been unremarkable, with only a few LP labs still pending. Because no infectious process can be identified patient is episode of fever, tachycardia and tachypnea remain concerning for possible brief transitioned into malignant catatonia. Currently patient is afebrile and vitals WNL however the risks increase the longer catatonia persists and ECT remains the most viable treatment option -court scheduled for today 12/12 ECT today. Discussed case in detail with Dr. Lira who agreed with proceeding to ECT for following reasons: 1. He remains with Severe catatonia; he is not eating, drinking, talking or opening his eyes, responding to verbal stimuli or getting out of bed; he cannot communicate or receive information; he continues to need IV fluids, nutrition without which he would go into organ failure and . 2. This past weekend, he became febrile with a temperature spiking to 105 degrees; he was tachycardic to 133, tachypneic to 22 RR? temperature lowered but he remained febrile for the next day...... After thorough workup which included an LP, chest x-ray, UA, RSV/COVID/flu? no infectious process identified, other than possible sinusitis. Was this episode of autonomic dysregulation a brief crossover into malignant catatonia? Concern for patients condition to turn malignant increases the longer catatonia persists. 3. The longer a person remains catatonic the harder it becomes to resolve it. Prolonged catatonia correlates with higher risk of serious medical complications, including ?and include the risks associated with continuous IV, S[place], and being bed bound. A person can rapidly deteriorate despite being on benzodiaepines. 4. Literature recommends a Switch to ECT when: Lorazepam (Ativan) fails after 3?5 days of adequate dosing (e.g., 6?12 mg/day) to prevent poor outcome (Electroconvulsive therapy in catatonic patients: Efficacy and predictors of response (2015)) -Will continue with ECT [facility] Will treat with Diazepam 5mg IV TID to treat for Benzo withdrawal and to treat catatonia; as pt improves, will taper benzo 12/13 Patient open his eyes, started answering questions by nodding his head and remained so throughout the day. Print And Pattern Designer explained patient's condition and treatment though doubtful patient understood much of it. Print And Pattern Designer gave him 2 doses of IV Ativan 2 mg which seemed to help because Later on automobile and property underwriter was informed the patient was again talking, eating and drinking. ECT tomorrow but if patient remains much improved, maybe able to return to the psychiatric unit -discussed case with Dr. Serrano and Dr. Lira and will continue benzos both to help make sure catatonia does not return and to avoid benzo withdrawal RETURNED TO PSYCH UNIT M5 (12/14): Patient significantly improved, walking, talking, eating, drinking and moving about. Patient was able to return to the psych floor. Plan is to continue ECT doing better on ativan 1mg tid, on 1:1 eating- some odd behaviors but no longer fully catatonic! 12/16 - dc 1:1, pt requested ensure with meals- maybe be rebound hunger from not eating while catatonic. reports fine no clear report from patient of prior days when he was catatonic- but now sleeping, eating and drinking fluids- denies si/hi/psychosis- refused ativan this am but couldn't say why - When asked about student/work - he says he had a job in [employer]- Case discussed with dr Lira who feels ECT helped- when ativan hadn't now doing well on on current ativan- no longer need for 1:1 12/18 Patient remains significantly improved and perhaps with no residual catatonic symptoms. Patient eating, drinking, talking, walking and interacting appropriately (keeping in mind ASD) Patient does not remember any of the events preceding this admission or during until getting to the psychiatric floor; catatonia and treatment explained to patient and he is amenable to continuing with ECT and benzodiazepines. Patient says he feels back to his regular self in his father was present, says he thinks so too. Patient denies any psychotic symptoms at all Although patient is much improved, he remained significantly vulnerable to return of catatonic symptoms. Discussed with Dr. Lira who agrees to Continue with ECT on 12/19 and 12/21 so as to prevent any return of catatonic symptoms; will continue with Ativan but likely further taper at some point. Will continue to assess. Regarding guardianship, at this time automobile and property underwriter does not see a need for patient to have a guardian. Currently however patient has no outpatient providers and no where to live; where patient to be discharged now he would likely become quickly impaired 12/19 Patient says he is doing well. He remains feeling like his normal self. Patient continues to deny any AH or paranoid ideations and says he does not remember having any of these before. He says he finds the atmosphere on the unit to be pretty good and has no complaints. Patient asked about ECT, how much more he is going to get and agrees to treatment plan. Discussed post discharge and patient said he liked living in [place] and is considering going back to his mother's there but wonders if staying here might be easier. He said he also is considering going to his aunt's house in [place]. Impression: Thankfully catatonic symptoms have fully resolved; will continue with ECT and benzo treatment for now and continually reassess. Regarding recent diagnosis of schizophrenia from other hospitalization and from collateral: Currently patient denies any psychotic symptoms. Patient has autistic spectrum disorder, which some of the symptoms can present similar to being internally preoccupied.... Will continue to monitor. At this time will continue with schizophrenic diagnosis but leave it as provisional... Patient continues to deny symptoms however and presents organized in speech and behavior. It is possible that patient has schizophrenia but is being treated with ECT... Or that he does not have schizophrenia Plan: q5's SECTION 8/8a; court-ordered ECT and medications Continue Ativan 1 mg t.i.d. p.o. for both benzo withdrawal and to avoid any return of catatonic symptoms ECT MWF (Court ordered; pt on Section 8/8a) ECT #1 on 12/12 ECT #2 on 12/14 ECT #3 on 12/17 ECT #4 pending 12/19 Patient educated on: diagnosis, medication risk/benefits and ECT Informed Consent: understands Reason for continued inpatient stay Substantial Risk for: rapid decompensation Time Spent With Patient Time: Total time managing care of this patient today ____ minutes.
[2024-12-19] MEDS: Multivitamin TABLET 1 TAB PO (09:13)
[2024-12-19] MEDS: Amoxicillin/Potassium Clav 875 MG TABLET PO ×2 (09:13→22:10)
[2024-12-19] MEDS: LORazepam 1 MG TABLET PO ×3 (09:13→22:10)
[2024-12-20 07:00] VITALS: BMI 30.2
[2024-12-20 08:19] VITALS: BP 126/60; PULSE 82; TEMP 36.5; O2SAT 100
[2024-12-20] MEDS: Amoxicillin/Potassium Clav 875 MG TABLET PO (08:42)
[2024-12-20] MEDS: Multivitamin TABLET 1 TAB PO (08:43)
[2024-12-20] MEDS: LORazepam 1 MG TABLET PO ×2 (08:43→15:12)
--- NOTE | 2024-12-20 09:54 | P.PNPSI_ITS ---
Subjective Subjective Date of Service: 12/20/24 Reason For Visit: catatonia/psychosis/autism Interim History: Met with patient; discussed with team Patient remains organized in speech and behavior. Talked about ECT, talked about his goals. Patient said he would like to find working computers, something he has been interested in for years. He has some ambivalence about returning to [place] since he says he and his mom have very different view on things; she very much wanted him to join the [employer] though he did not think it was necessarily a good fit for him. Discussed autism and patient knows that he has had this diagnosis and has worked through it for years. He continues to deny any psychotic symptoms at all. -patient's mother told psychosocial rehabilitation counselor that after having talked with them on the phone for the past several days she says he sounds like his regular self. Mental Status Exam Mental Status Exam Narrative: Pt is alert and oriented; behavior is cooperative, friendly and calm; without any catatonic symptoms; periodically squints his eyes; patient is not in distress; dressed in hospital attire with unkempt hair but adequate hygiene; mood is described as good and affect congruent; eye contact a little avoidant; Speech is minimal but normal rate, volume and prosody and not pressured; no psychomotor agitation/retardation present; thought process is goal directed, concrete; Thought content is on whatever is at hand, appropriate; no delusional ideations expressed; denies any SI/HI. Denies AVH; not clear if patient appears internally preoccupied Patients insight and judgment seems intact; not sure patient's baseline Diagnostics Vital Signs (24Hr): Vital Signs - 24 hr 12/19/24 14:23 12/19/24 18:00 12/20/24 08:19 Temperature 98.1 F 97.7 F Pulse Rate 82 82 Respiratory Rate 18 16 Blood Pressure 118/63 126/60 Pulse Oximetry 96 100 Oxygen Delivery Method Room Air Room Air BMI result Body Mass Index 28.7 Labs 12/15/24 07:54 12/15/24 07:54 Medications Medications Current Medications Al Hydroxide/Mg Hydroxide (Magnesium Hydrox/Alum Hydrox 30 Ml Oral.Susp) 30 ml PO Q6H PRN PRN Reason: Heartburn/Nausea Amoxicillin/Clavulanate Potassium (Amoxicillin/Potassium Clav 875 Mg Tablet) 875 mg PO BID ARNIE Last Admin: 12/20/24 08:42 Dose: 875 mg Lactated Ringer's (Lr) 1,000 mls @ 100 mls/hr IVCONT .Q10H [facility] Last Admin: 12/20/24 08:16 Dose: Not Given Lorazepam (Lorazepam 1 Mg Tablet) 1 mg PO TID [facility] Last Admin: 12/20/24 08:43 Dose: 1 mg Magnesium Hydroxide (Milk Of Magnesia 30 Ml Oral.Susp) 30 ml PO DAILY PRN PRN Reason: Constipation Multivitamins/Vitamin C (Multivitamin Tablet) 1 tab PO DAILY [facility] Last Admin: 12/20/24 08:43 Dose: 1 tab Allergies Allergies Allergy/AdvReac Type Severity Reaction Status Date / Time No Known Allergies Allergy Verified 11/28/24 13:56 Assessment & Plan Assessment & Plan (1) 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 Pt transferred to medical floor from ICU for continued IV benzodiazepines, IV fluids, TPN. Patient court-ordered treatment including ECT. Once patient received ECT he started coming out of catatonic symptoms Initial Impression: It is difficult to know the etiology of catatonia. People with autism, psychotic disorders, or taking a antipsychotic medications are all at increased risk for catatonia and patient has all 3 risk factors (so it seems). Again from collateral it sounds very possible that catatonic symptoms started in the community in the week prior to this admission. Here at [facility] with IV benzodiazepines,, patient had observed but minimal improvement with IV diazepam; now on IV Ativan with some additional improvement. Discussed case thoroughly with Dr. Lira who agrees that current treatment plan of IV Ativan as both appropriate and necessary treatment to resolve catatonia and prevent malignant catatonia. Suction Plate Carrier Cleaner has discussed the possibility of patient needing ECT treatment if IV benzos do not adequately resolve symptoms; family remains cautious about ECT but seems to understand that this could be necessary. After receiving collateral from patient's mother (see below), it seems that patient was demonstrating significant changes in his behavior, very different from his normal way of functioning and his normal expressions of autism. That said , some other family members perspective is with discrepancy from mother's collateral so it is not totally clear. But per the mother, The behavioral changes described sound like prodrome of schizophrenia. Patient's father also observed patient responding to internal stimuli, also very different from his normal expressions. Suction Plate Carrier Cleaner met with and discussed case with patient's father and then talked with patient's mother who currently lives in [place]. Collateral from patient's mother, Cliff, ([phone]) ASD; IEP, honors classes, working; spelling [employer]; graduated [employer]; -around 22 years old, seemed more reclusive and pt started changing -lost job September 2022; missing days, not focused; got fired at next job for going too slow -a year ago, less ADL's, not showering, less motivation, mom thinking more than just ASD since not like this at all in [place] -Refusing to go to appointments. Got him to ED and psych doctor evaluated but was not able to be Sectioned; mom tried other times to get him to doctor, to hospital, but police felt did not meet criteria to section him... -still minimal ADL's; in Fall 2023 started sleeping outside in the park which again, out of character -Jul 2024 making slow movements, like in slow motion, but able to pull out of it; kept sleeping outside in front of her door, peeing on himself or in bottles. -Episodes of staring off and not responding; intermittently would look agitated -Mom sent him to [place] to be with father -no hx of drug/alcohol use -had gone 36 hours w/out sleep, but not hyperactive, withdrawn and either quiet on laptop or making lots of food but not eating -no seizure hx -no hx of medication Hospital course: Initially patient admitted to [facility] for psychosis; quickly developed severe catatonia, rigidity, not eating or drinking or moving or talking at all. Moved to medical floor and then ICU for IV benzos: 1.Initially Patient was 1st sent from to the medical floor. Due to national shortage of liquid Ativan, He received midazolam 2 mg IV however patient had no response. He was then given diazepam 10 mg IV and within 30 seconds, he relaxed his muscles, folded his arms, turned over on his side and moved his legs, 1st natural movements observed for several days. Suction Plate Carrier Cleaner collaborated with Dr. Lira and after literature review, both agreed that patient required immediate IV diazepam treatment to prevent patient from progressing towards a malignant catatonia; since patient had demonstrated initial response to diazepam he should be continued on diazepam; the literature recommends diazepam IV infusion at 10mg/500ml saline at 1.25mg/hour; diazepam infusion not available per hospital formulary so agreed to diazepam 2.5 mg IV push q.2 hours. 2)Hospitalist team/medical floor nursing staff felt patient should be observed on ICU for this administration and he was transferred to the ICU. In the ICU, Patient treated with IV Diazepam for about 36 hours with limited effect, with rigidity having resolved (and periodically briefly opening his eyes) but other symptoms of catatonia remaining including, not following verbal commands and negativism (resistance of examine his manipulation with equal strength). Team agreed to switch from diazepam to Ativan 2 mg IV q.i.d.. After about 12 hours patient improved some more, responding to noxious stimuli/sternal rub and grimaced and actively pushed examiner's hand away. After about 36 hours give or take, dose increase to Ativan 2 mg IV q4H. Patient able to be transferred back to the medical floor. 3) patient on medical floor receiving Ativan 2 mg IV q4h. He remains in the bed with his eyes closed, not responding to verbal commands but is overall moving all limbs more naturally on his own. Negative his remains. ICU 12/06 Patient remains with same minimal improvement observed when starting diazepam; he is moving on his own a little more naturally though still minimally. Will appeared to be trying to open his eyes sometimes when his name is called. Continues with negativism however otherwise is not rigid. Suction Plate Carrier Cleaner met with patient's father and stepmother Debra. Initially family expressed dissatisfaction with treatment and wanted patient transferred to [facility]. Dr. Jiang reached out to [facility] to discuss case and they declined to take patient at this time, not having a bed available and also not being able to provide ECT should patient require it. Patient's family accepted this. Suction Plate Carrier Cleaner again spent about an hour providing education on catatonia, its causes and its treatments, including ECT; explained ECT procedure as well. Dr. Lira also provided the family with printed out literature regarding these topics, including ECT. After discussion, patient's family seemed to agree with current treatment plan of continuing with benzodiazepines. Since patient had only a minimal response to IV diazepam, decision was made to switch to IV Ativan to see if this would be more effective; also discussed with family who agreed with this plan. Suction Plate Carrier Cleaner again offered to talk with family member who is a neurologist and gave them engineering technical writer's contact information to pass along. 12/07 some change in presentation as patient now responsive to noxious stimuli/chest rub, grimacing and pushing examiner's hand away. Suction Plate Carrier Cleaner and Dr. Lira agree this is improvement and evidence that Ativan is helping (progression: rigidity and no response to noxious stimuli -- progressed to absence of rigidity but still no response to noxious stimuli--progressed to now, pt with active response to noxious stimuli). -Literature reviewed and after team discussion agreed to increase IV Ativan to 2 mg q.4h -brain MRI unremarkable -Discussed with Dr. Jiang who felt patient could be safely transferred back to medical floor out of ICU; family informed Medical floor: 12/08 patient remains catatonic, not opening his eyes, not responding to any verbal interactions; remains with negativism; however is moving increasingly or naturally on his own. Discussed with dr. Ernandez. -continue with Ativan 2 mg q4h for now 12/09 Last night/early AM pt spiked fever 105, tachy, tachypneic. Treated with abx, cooling blanket, rectal acetaminophen; CXR negative. Temp came down and pt only mildly tachy; RR 18. Also...This morning, pt woke up, talked with Dr. Ernandez and asked for a sandwich; a little later with nurse, he knew his name, and that he was at [facility]. Later in day, on approach, pt sleeping, sometimes yawning; did not wake up to speaking his name; engineering technical writer did not do sternal rub -tried to test for rigidity but not able to assess since pt's remains w/ negativism (catatonic symptom of resisting examiner w/ equal force) but pt appears to be moving around easily enough on his own. -did not really at risk for NMS since pt only on Diazepam T:99.4 (on cooling blanket) BP:112/68 O2 96% HR 98 RR: 18 lips appear swollen UA unremarkable CXR unremarkable negative covid/rsv/flu Suction Plate Carrier Cleaner discussed case with Dr. Lira; engineering technical writer Discussed case with Dr. Ernandez regarding blood cultures/LP; at this time Dr. Ernandez would like to continue monitoring but advance to LP if patient does not improve. Hospital ran out of Ativan; will switch back to diazepam Impression: Despite the fact that patient spiked a fever and was tachy and tachypneic, the fact that he woke up, was talking, interacting oriented to self and place was very encouraging. Ativan seems to have been more effective than diazepam and remains preferred, however diazepam has had some positive effect. Patient being worked up for infectious etiology, though he does not appear ill looking. It is possible that fever, increased heart rate respiratory rate was a brief crossing into a malignant catatonia; will continue with current treatment plan; ECT remains consider most effective treatment however need court order 12/11 LP so far mostly negative with a few parameters still pending; Afebrile and vitals WNL Patient remains with eyes closed but is moving his body and head around on his own; sometimes role in his head around and around. Still does not respond to verbal stimuli. Waxy flexibility noted; initially only minimal negativeism however this increased with examiners manipulations. Has not open his eyes or talked since Friday 12/08 (per father patient also talked with his mother on the phone, talked with his grandmother). -discussed with pharmacist and some additional Ativan has been procured though in a very limited supply; will restart Ativan IV -of note diazepam infusion is not possible per pharmacy -would also consider memantine, though must be taken p.o. Impression: Patient has certainly improved with IV benzodiazepines, lorazepam seeming to be the most effective. However he remains with severe catatonia. Although he open his eyes and spoke briefly, he has not done so for 3 days and for the past 3 days he has remained with eyes closed, nonverbal, not responding to verbal cues, not eating, not drinking. Thus far, workup for infection has been unremarkable, with only a few LP labs still pending. Because no infectious process can be identified patient is episode of fever, tachycardia and tachypnea remain concerning for possible brief transitioned into malignant catatonia. Currently patient is afebrile and vitals WNL however the risks increase the longer catatonia persists and ECT remains the most viable treatment option -court scheduled for today 12/12 ECT today. Discussed case in detail with Dr. Lira who agreed with proceeding to ECT for following reasons: 1. He remains with Severe catatonia; he is not eating, drinking, talking or opening his eyes, responding to verbal stimuli or getting out of bed; he cannot communicate or receive information; he continues to need IV fluids, nutrition without which he would go into organ failure and . 2. This past weekend, he became febrile with a temperature spiking to 105 degrees; he was tachycardic to 133, tachypneic to 22 RR? temperature lowered but he remained febrile for the next day...... After thorough workup which included an LP, chest x-ray, UA, RSV/COVID/flu? no infectious process identified, other than possible sinusitis. Was this episode of autonomic dysregulation a brief crossover into malignant catatonia? Concern for patients condition to turn malignant increases the longer catatonia persists. 3. The longer a person remains catatonic the harder it becomes to resolve it. Prolonged catatonia correlates with higher risk of serious medical complications, including ?and include the risks associated with continuous IV, Sultana, and being bed bound. A person can rapidly deteriorate despite being on benzodiaepines. 4. Literature recommends a Switch to ECT when: Lorazepam (Ativan) fails after 3?5 days of adequate dosing (e.g., 6?12 mg/day) to prevent poor outcome (Electroconvulsive therapy in catatonic patients: Efficacy and predictors of response (2015)) -Will continue with ECT [facility] Will treat with Diazepam 5mg IV TID to treat for Benzo withdrawal and to treat catatonia; as pt improves, will taper benzo 12/13 Patient open his eyes, started answering questions by nodding his head and remained so throughout the day. Suction Plate Carrier Cleaner explained patient's condition and treatment though doubtful patient understood much of it. Suction Plate Carrier Cleaner gave him 2 doses of IV Ativan 2 mg which seemed to help because Later on engineering technical writer was informed the patient was again talking, eating and drinking. ECT tomorrow but if patient remains much improved, maybe able to return to the psychiatric unit -discussed case with Dr. Serrano and Dr. Lira and will continue benzos both to help make sure catatonia does not return and to avoid benzo withdrawal RETURNED TO PSYCH UNIT M5 (12/14): Patient significantly improved, walking, talking, eating, drinking and moving about. Patient was able to return to the psych floor. Plan is to continue ECT doing better on ativan 1mg tid, on 1:1 eating- some odd behaviors but no longer fully catatonic! 12/16 - dc 1:1, pt requested ensure with meals- maybe be rebound hunger from not eating while catatonic. reports fine no clear report from patient of prior days when he was catatonic- but now sleeping, eating and drinking fluids- denies si/hi/psychosis- refused ativan this am but couldn't say why - When asked about student/work - he says he had a job in [employer]- Case discussed with dr Lira who feels ECT helped- when ativan hadn't now doing well on on current ativan- no longer need for 1:1 12/18 Patient remains significantly improved and perhaps with no residual catatonic symptoms. Patient eating, drinking, talking, walking and interacting appropriately (keeping in mind ASD) Patient does not remember any of the events preceding this admission or during until getting to the psychiatric floor; catatonia and treatment explained to patient and he is amenable to continuing with ECT and benzodiazepines. Patient says he feels back to his regular self in his father was present, says he thinks so too. Patient denies any psychotic symptoms at all Although patient is much improved, he remained significantly vulnerable to return of catatonic symptoms. Discussed with Dr. Lira who agrees to Continue with ECT on 12/19 and 12/21 so as to prevent any return of catatonic symptoms; will continue with Ativan but likely further taper at some point. Will continue to assess. Regarding guardianship, at this time engineering technical writer does not see a need for patient to have a guardian. Currently however patient has no outpatient providers and no where to live; where patient to be discharged now he would likely become quickly impaired 12/19 Patient says he is doing well. He remains feeling like his normal self. Patient continues to deny any AH or paranoid ideations and says he does not remember having any of these before. He says he finds the atmosphere on the unit to be pretty good and has no complaints. Patient asked about ECT, how much more he is going to get and agrees to treatment plan. Discussed post discharge and patient said he liked living in [place] and is considering going back to his mother's there but wonders if staying here might be easier. He said he also is considering going to his aunt's house in [place]. 12/20 Patient remains organized in speech and behavior. Talked about ECT, talked about his goals. Patient said he would like to find working computers, something he has been interested in for years. He has some ambivalence about returning to [place] since he says he and his mom have very different view on things; she very much wanted him to join the [employer] though he did not think it was necessarily a good fit for him. Discussed autism and patient knows that he has had this diagnosis and has worked through it for years. He continues to deny any psychotic symptoms at all. -patient's mother told psychosocial rehabilitation counselor that after having talked with them on the phone for the past several days she says he sounds like his regular self. Impression: Thankfully catatonic symptoms have fully resolved; will continue with ECT and benzo treatment for now and continually reassess. Regarding recent diagnosis of schizophrenia from other hospitalization and from collateral: Currently patient denies any psychotic symptoms. Patient has autistic spectrum disorder, which some of the symptoms can present similar to being internally preoccupied.... Will continue to monitor. At this time will continue with schizophrenic diagnosis but leave it as provisional... Patient continues to deny symptoms however and presents organized in speech and behavior. It is possible that patient has schizophrenia but is being treated with ECT... Or that he does not have schizophrenia Plan: q5's SECTION ; court-ordered ECT and medications Continue Ativan 1 mg t.i.d. p.o. for both benzo withdrawal and to avoid any return of catatonic symptoms ECT MWF (Court ordered; pt on Section ) ECT #1 on 12/12 ECT #2 on 12/14 ECT #3 on 12/17 ECT #4 pending 12/19 Patient educated on: diagnosis, medication risk/benefits, ECT and therapeutic strategies Informed Consent: understands Reason for continued inpatient stay Substantial Risk for: rapid decompensation Time Spent With Patient Time: Total time managing care of this patient today ____ minutes.
[2024-12-20 22:00] VITALS: BP 110/72; PULSE 92; RESP 18; TEMP 36.9; O2SAT 97
[2024-12-21] VITALS (8 sets, daily range): BP systolic 107–147; BP diastolic 43–74; PULSE 80–101; RESP 15–20; TEMP 36.6–37.4; O2SAT 93–99
[2024-12-21] MEDS: Lactated Ringers 1,000 ML 100 ML IVCONT (06:58)
--- NOTE | 2024-12-21 08:53 | MHC.SHP ---
Pre-Procedural Eval Section A - 24 Hr Update-Section A only Date of Service: 12/21/24 The patient is an INPATIENT: Yes Changes since office visit: Yes Cold of Flu in the past 2 weeks, Yes Changes in Medication and Yes Patient answered all questions; No New Medical Problems The patient has been examined within 24 hours of the surgical procedure. The History & Physical has been completed within 30 days and I have reviewed it.: Yes Section B - Complete if H&P > 30 days Chief Complaint: catatonia/psychosis/autism Allergies: Allergies Allergy/AdvReac Type Severity Reaction Status Date / Time No Known Allergies Allergy Verified 11/28/24 13:56 Plan I have reviewed the history and physical and performed a pertinent physical examination on my patient. No changes have occurred unless specified. Time Spent With Patient Time: Total time managing care of this patient today ____ minutes.
--- NOTE | 2024-12-21 09:52 | HO.ANESPROP2 ---
[facility] Active Problems Active Problems: All Active Problems Fever, unknown origin (Acute) Catatonia (Acute) Schizophrenia (Acute) Autism spectrum disorder (Acute) Psychiatric illness (Acute) Past Medical History Medical History Fever, unknown origin Autism spectrum disorder Functional capacity: independent ambulation Family History Family history of problems with anesthesia: No Surgical History History of Problems with Anesthesia: No Social History Social History Household Members: None Household Members Other:: pt is admit fr M# for catatonia, not response to questions, JULIO CESAR Housing: Homeless Do you presently have visiting nurse or other home services: No Comment: 1:1 sitter at bedside Patient Tobacco Use Status: Never used Tobacco e-Cigarette/Vaping Use: Never Used Second Hand Smoke Exposure: No Use of substances other than those prescribed or required for medical reasons: No Currently Displaying Signs/Symptoms of Drug Intoxication Withdrawal: No Any prior treatment program specific to substance use: No Spiritual Healthcare Practices: unable to participate Sabianism Healthcare Practices: unable to participate Cultural Healthcare Practices: unable to participate Advance Directives: No Advance Directives Information Provided: Yes Do you have thoughts of harming others: None Do you have a plan to hurt others: No Plan Recently lost weight without trying: Unsure Poor oral hygiene: No service: No Sexual orientation: Did not discuss Meds Allergies Allergy/AdvReac Type Severity Reaction Status Date / Time No Known Allergies Allergy Verified 11/28/24 13:56 Active Medications: Current Medications Al Hydroxide/Mg Hydroxide (Magnesium Hydrox/Alum Hydrox 30 Ml Oral.Susp) 30 ml PO Q6H PRN PRN Reason: Heartburn/Nausea Lactated Ringer's (Lr) 1,000 mls @ 100 mls/hr IVCONT .Q10H [facility] Last Admin: 12/21/24 06:58 Dose: 100 mls/hr Lorazepam (Lorazepam 1 Mg Tablet) 1 mg PO TID ARNIE Last Admin: 12/20/24 20:16 Dose: Not Given Magnesium Hydroxide (Milk Of Magnesia 30 Ml Oral.Susp) 30 ml PO DAILY PRN PRN Reason: Constipation Multivitamins/Vitamin C (Multivitamin Tablet) 1 tab PO DAILY [facility] Last Admin: 12/20/24 08:43 Dose: 1 tab Home Medications ?Medication ?Instructions ?Recorded ?Confirmed ?Last Taken ?Type lamotrigine 25 mg tablet 25 mg PO BID 12/14/24 12/14/24 Unknown History multivitamin with folic acid 400 1 tab PO DAILY 12/14/24 12/14/24 Unknown History mcg tablet (Daily-Luh (with folic acid)) risperidone 1 mg tablet 1 mg PO BID 12/14/24 12/14/24 Unknown History Exam Height,Weight and Vital Signs: Height 6 ft Weight 101.1 kg Last Vital Signs Temp 98 F 12/21/24 09:18 Pulse 90 12/21/24 09:45 Resp 20 12/21/24 09:45 BP 107/43 L 12/21/24 09:45 Pulse Ox 95 12/21/24 09:45 O2 Del Method Room Air 12/21/24 09:45 O2 Flow Rate 2 12/21/24 09:30 Pertinent Lab Results Pertinent Lab Results: Laboratory Tests 12/15/24 07:54 WBC 8.1 RBC 4.02 L Hgb 12.1 L Hct 36.3 L MCV 90.3 MCH 30.1 MCHC 33.3 RDW 12.3 Plt Count 311 D MPV 9.9 Immature Gran % (Auto) 2.2 H Neut % (Auto) 51.5 Lymph % (Auto) 37.2 [place] % (Auto) 6.3 Eos % (Auto) 2.1 Baso % (Auto) 0.7 Lymph # (Auto) 3.0 [place] # (Auto) 0.5 Eos # (Auto) 0.2 Baso # (Auto) 0.1 Abs Immat Gran (auto) 0.18 H Absolute Neuts (auto) 4.1 Absolute Nucleated RBC 0.000 Nucleated RBC % (auto) 0.0 Sodium 142 Potassium 4.3 Chloride 106 Carbon Dioxide 28 Anion Gap 12 BUN 11 Creatinine 0.84 Estim Creat Clear Calc 162.9 Estimated GFR > 60 Random Glucose 85 Estimat Average Glucose 82 Hemoglobin A1c % 4.5 Calcium 10.0 Total Bilirubin 0.5 AST 40 H ALT 82 H Alkaline Phosphatase 47 Total Protein 7.1 Albumin 3.8 Triglycerides 30 Cholesterol 114 LDL Cholesterol, Calc 88 HDL Cholesterol 20 L Airway Mallampati Class: III TM Dist: >3cm Neck ROM: Full Heart: RRR Lungs: CTA Assessment and Plan Assessment Anesthesia Assessment: Anesthesia Plan Discussed Final Anesthetic Review Family History of Problems with Anesthesia: No History of Problems with Anesthesia: No NPO: Yes ASA Class: III Final Preanesthetic Review: Meds/Allgs Chart Reviewed, Consent Obtained/Reviewed and Anes Risks/Benef Reviewed Patient Risk: Intermediate Procedure Risk: Low Anesthetic Plan Anesthetic Plan: GA Disposition: Standard PACU
--- NOTE | 2024-12-21 09:53 | HO.ECTPROC ---
ECT Procedure Note Diagnosis/Treatment Date of Service: 12/21/24 Diagnosis: Catatonia Previous ECT Date: 12/19/24 Current Treatment Number: 5 Treatment: Series Interval Clinical Notes: Patient seems markedly improved green affect alert walking eating and drinking adequately. Patient able to [place] and difficulty that he had in coming up reportedly to meet his father in [place]. Difficulty that he had been having recently at a long term. Does describe autism history no current paranoia or reported a lord. Case reviewed with Dr. Saucedo question of autism with catatonia alone or psychotic spectrum disorder with catatonia Time: Total time managing care of this patient today 36____ minutes. ECT Settings Device: THYMATRON DGx Electrode Placement: Bifrontal Program/Pulse Width: 0.50 Energy Percent: 45 Seizure Duration By EEG (in seconds): 102 Medications Administration General Anesthetic: Etomidate (16) Muscle Relaxant: Succinylcholine (100) Airway Management Airway Management: Bag Mask Ventilation Treatment Recommendations Program/Pulse Width: 0.25 Energy Percent: 40 Pt Tolerated Procedure w/o Issue: Yes
--- NOTE | 2024-12-21 09:54 | HO.POSTANES ---
Post Anesthesia Evaluation Post Anesthesia Evaluation Date of Service: 12/21/24 Vital Signs: Vital Signs Temp Pulse Resp BP Pulse Ox O2 Del Method O2 Flow Rate 12/21/24 09:45 90 20 107/43 L 95 Room Air 12/21/24 09:30 90 20 131/62 95 Nasal Cannula 2 12/21/24 09:25 94 20 135/66 95 Nasal Cannula 2 12/21/24 09:23 101 H 20 136/69 93 Room Air 2 12/21/24 09:18 98 F 89 16 147/69 H 99 Nasal Cannula 2 12/21/24 06:39 97.9 F 80 17 124/74 99 Room Air 12/20/24 22:00 98.4 F 92 18 110/72 97 Room Air Anesthesia: General Mental Status: Awake Pain Control: Satisfactory Nausea/Vomiting: None Hydration: Adequate Anesthesia-Related Issues: No Anes. Related Issues
--- NOTE | 2024-12-21 09:55 | HO.PSYCHPN ---
Subjective Subjective Date of Service: 12/21/24 Reason For Visit: catatonia/psychosis/autism Interim History: met with patient; discussed with team no change in presentation; no problems with ECT denies any psychiatric symptoms; denies psychotic symptoms, Pt shared ambivalence about returning to live w/ mom in [place]; he agrees that option of staying in correction here is precarious. Family meeting tuesday Mental Status Exam Mental Status Exam Narrative: Pt is alert and oriented; behavior is cooperative, friendly and calm; without any catatonic symptoms; periodically squints his eyes; patient is not in distress; dressed in hospital attire with unkempt hair but adequate hygiene; mood is described as good and affect congruent; eye contact a little avoidant; Speech is minimal but normal rate, volume and prosody and not pressured; no psychomotor agitation/retardation present; thought process is goal directed, concrete; Thought content is on whatever is at hand, appropriate; no delusional ideations expressed; denies any SI/HI. Denies AVH; not clear if patient appears internally preoccupied Patients insight and judgment seems intact; not sure patient's baseline Diagnostics Vital Signs (24Hr): Vital Signs - 24 hr 12/20/24 22:00 12/21/24 06:39 12/21/24 09:18 Temperature 98.4 F 97.9 F 98 F Pulse Rate 92 80 89 Respiratory Rate 18 17 16 Blood Pressure 110/72 124/74 147/69 H Pulse Oximetry 97 99 99 Oxygen Delivery Method Room Air Room Air Nasal Cannula Oxygen Flow Rate 2 12/21/24 09:23 12/21/24 09:25 12/21/24 09:30 Temperature Pulse Rate 101 H 94 90 Respiratory Rate 20 20 20 Blood Pressure 136/69 135/66 131/62 Pulse Oximetry 93 95 95 Oxygen Delivery Method Room Air Nasal Cannula Nasal Cannula Oxygen Flow Rate 2 2 2 12/21/24 09:45 Temperature Pulse Rate 90 Respiratory Rate 20 Blood Pressure 107/43 L Pulse Oximetry 95 Oxygen Delivery Method Room Air Oxygen Flow Rate BMI result Body Mass Index 30.2 Labs 12/15/24 07:54 12/15/24 07:54 Medications Medications Current Medications Al Hydroxide/Mg Hydroxide (Magnesium Hydrox/Alum Hydrox 30 Ml Oral.Susp) 30 ml PO Q6H PRN PRN Reason: Heartburn/Nausea Lactated Ringer's (Lr) 1,000 mls @ 100 mls/hr IVCONT .Q10H [facility] Last Admin: 12/21/24 06:58 Dose: 100 mls/hr Lorazepam (Lorazepam 1 Mg Tablet) 1 mg PO TID [facility] Last Admin: 12/20/24 20:16 Dose: Not Given Magnesium Hydroxide (Milk Of Magnesia 30 Ml Oral.Susp) 30 ml PO DAILY PRN PRN Reason: Constipation Multivitamins/Vitamin C (Multivitamin Tablet) 1 tab PO DAILY [facility] Last Admin: 12/20/24 08:43 Dose: 1 tab Naloxone HCl (Naloxone Hcl 0.4 Mg/Ml Vial) 0.04 mg IVPUSH Q5M PRN PRN Reason: Excessive sedation or RR < 8 Allergies Allergies Allergy/AdvReac Type Severity Reaction Status Date / Time No Known Allergies Allergy Verified 11/28/24 13:56 Assessment & Plan Assessment & Plan (1) 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 Pt transferred to medical floor from ICU for continued IV benzodiazepines, IV fluids, TPN. Patient court-ordered treatment including ECT. Once patient received ECT he started coming out of catatonic symptoms Initial Impression: It is difficult to know the etiology of catatonia. People with autism, psychotic disorders, or taking a antipsychotic medications are all at increased risk for catatonia and patient has all 3 risk factors (so it seems). Again from collateral it sounds very possible that catatonic symptoms started in the community in the week prior to this admission. Here at [facility] with IV benzodiazepines,, patient had observed but minimal improvement with IV diazepam; now on IV Ativan with some additional improvement. Discussed case thoroughly with Dr. Lira who agrees that current treatment plan of IV Ativan as both appropriate and necessary treatment to resolve catatonia and prevent malignant catatonia. Office Manager Executive Assistant has discussed the possibility of patient needing ECT treatment if IV benzos do not adequately resolve symptoms; family remains cautious about ECT but seems to understand that this could be necessary. After receiving collateral from patient's mother (see below), it seems that patient was demonstrating significant changes in his behavior, very different from his normal way of functioning and his normal expressions of autism. That said , some other family members perspective is with discrepancy from mother's collateral so it is not totally clear. But per the mother, The behavioral changes described sound like prodrome of schizophrenia. Patient's father also observed patient responding to internal stimuli, also very different from his normal expressions. Office Manager Executive Assistant met with and discussed case with patient's father and then talked with patient's mother who currently lives in [place]. Collateral from patient's mother, Cliff, ([phone]) ASD; IEP, honors classes, working; spelling [employer]; graduated [employer]; -around 22 years old, seemed more reclusive and pt started changing -lost job September 2022; missing days, not focused; got fired at next job for going too slow -a year ago, less ADL's, not showering, less motivation, mom thinking more than just ASD since not like this at all in [place] -Refusing to go to appointments. Got him to ED and psych doctor evaluated but was not able to be Sectioned; mom tried other times to get him to doctor, to hospital, but police felt did not meet criteria to section him... -still minimal ADL's; in Fall 2023 started sleeping outside in the park which again, out of character -Jul 2024 making slow movements, like in slow motion, but able to pull out of it; kept sleeping outside in front of her door, peeing on himself or in bottles. -Episodes of staring off and not responding; intermittently would look agitated -Mom sent him to [place] to be with father -no hx of drug/alcohol use -had gone 36 hours w/out sleep, but not hyperactive, withdrawn and either quiet on laptop or making lots of food but not eating -no seizure hx -no hx of medication Hospital course: Initially patient admitted to [facility] for psychosis; quickly developed severe catatonia, rigidity, not eating or drinking or moving or talking at all. Moved to medical floor and then ICU for IV benzos: 1.Initially Patient was 1st sent from to the medical floor. Due to national shortage of liquid Ativan, He received midazolam 2 mg IV however patient had no response. He was then given diazepam 10 mg IV and within 30 seconds, he relaxed his muscles, folded his arms, turned over on his side and moved his legs, 1st natural movements observed for several days. Office Manager Executive Assistant collaborated with Dr. Lira and after literature review, both agreed that patient required immediate IV diazepam treatment to prevent patient from progressing towards a malignant catatonia; since patient had demonstrated initial response to diazepam he should be continued on diazepam; the literature recommends diazepam IV infusion at 10mg/500ml saline at 1.25mg/hour; diazepam infusion not available per hospital formulary so agreed to diazepam 2.5 mg IV push q.2 hours. 2)Hospitalist team/medical floor nursing staff felt patient should be observed on ICU for this administration and he was transferred to the ICU. In the ICU, Patient treated with IV Diazepam for about 36 hours with limited effect, with rigidity having resolved (and periodically briefly opening his eyes) but other symptoms of catatonia remaining including, not following verbal commands and negativism (resistance of examine his manipulation with equal strength). Team agreed to switch from diazepam to Ativan 2 mg IV q.i.d.. After about 12 hours patient improved some more, responding to noxious stimuli/sternal rub and grimaced and actively pushed examiner's hand away. After about 36 hours give or take, dose increase to Ativan 2 mg IV q4H. Patient able to be transferred back to the medical floor. 3) patient on medical floor receiving Ativan 2 mg IV q4h. He remains in the bed with his eyes closed, not responding to verbal commands but is overall moving all limbs more naturally on his own. Negative his remains. ICU 12/06 Patient remains with same minimal improvement observed when starting diazepam; he is moving on his own a little more naturally though still minimally. Will appeared to be trying to open his eyes sometimes when his name is called. Continues with negativism however otherwise is not rigid. Office Manager Executive Assistant met with patient's father and stepmother Debra. Initially family expressed dissatisfaction with treatment and wanted patient transferred to [facility]. Dr. Jiang reached out to [facility] to discuss case and they declined to take patient at this time, not having a bed available and also not being able to provide ECT should patient require it. Patient's family accepted this. Office Manager Executive Assistant again spent about an hour providing education on catatonia, its causes and its treatments, including ECT; explained ECT procedure as well. Dr. Lira also provided the family with printed out literature regarding these topics, including ECT. After discussion, patient's family seemed to agree with current treatment plan of continuing with benzodiazepines. Since patient had only a minimal response to IV diazepam, decision was made to switch to IV Ativan to see if this would be more effective; also discussed with family who agreed with this plan. Office Manager Executive Assistant again offered to talk with family member who is a neurologist and gave them investment underwriter's contact information to pass along. 12/07 some change in presentation as patient now responsive to noxious stimuli/chest rub, grimacing and pushing examiner's hand away. Office Manager Executive Assistant and Dr. Lira agree this is improvement and evidence that Ativan is helping (progression: rigidity and no response to noxious stimuli -- progressed to absence of rigidity but still no response to noxious stimuli--progressed to now, pt with active response to noxious stimuli). -Literature reviewed and after team discussion agreed to increase IV Ativan to 2 mg q.4h -brain MRI unremarkable -Discussed with Dr. Jiang who felt patient could be safely transferred back to medical floor out of ICU; family informed Medical floor: 12/08 patient remains catatonic, not opening his eyes, not responding to any verbal interactions; remains with negativism; however is moving increasingly or naturally on his own. Discussed with dr. Ernandez. -continue with Ativan 2 mg q4h for now 12/09 Last night/early AM pt spiked fever 105, tachy, tachypneic. Treated with abx, cooling blanket, rectal acetaminophen; CXR negative. Temp came down and pt only mildly tachy; RR 18. Also...This morning, pt woke up, talked with Dr. Ernandez and asked for a sandwich; a little later with nurse, he knew his name, and that he was at [facility]. Later in day, on approach, pt sleeping, sometimes yawning; did not wake up to speaking his name; investment underwriter did not do sternal rub -tried to test for rigidity but not able to assess since pt's remains w/ negativism (catatonic symptom of resisting examiner w/ equal force) but pt appears to be moving around easily enough on his own. -did not really at risk for NMS since pt only on Diazepam T:99.4 (on cooling blanket) BP:112/68 O2 96% HR 98 RR: 18 lips appear swollen UA unremarkable CXR unremarkable negative covid/rsv/flu Office Manager Executive Assistant discussed case with Dr. Lira; investment underwriter Discussed case with Dr. Ernandez regarding blood cultures/LP; at this time Dr. Ernandez would like to continue monitoring but advance to LP if patient does not improve. Hospital ran out of Ativan; will switch back to diazepam Impression: Despite the fact that patient spiked a fever and was tachy and tachypneic, the fact that he woke up, was talking, interacting oriented to self and place was very encouraging. Ativan seems to have been more effective than diazepam and remains preferred, however diazepam has had some positive effect. Patient being worked up for infectious etiology, though he does not appear ill looking. It is possible that fever, increased heart rate respiratory rate was a brief crossing into a malignant catatonia; will continue with current treatment plan; ECT remains consider most effective treatment however need court order 12/11 LP so far mostly negative with a few parameters still pending; Afebrile and vitals WNL Patient remains with eyes closed but is moving his body and head around on his own; sometimes role in his head around and around. Still does not respond to verbal stimuli. Waxy flexibility noted; initially only minimal negativeism however this increased with examiners manipulations. Has not open his eyes or talked since Friday 12/08 (per father patient also talked with his mother on the phone, talked with his grandmother). -discussed with pharmacist and some additional Ativan has been procured though in a very limited supply; will restart Ativan IV -of note diazepam infusion is not possible per pharmacy -would also consider memantine, though must be taken p.o. Impression: Patient has certainly improved with IV benzodiazepines, lorazepam seeming to be the most effective. However he remains with severe catatonia. Although he open his eyes and spoke briefly, he has not done so for 3 days and for the past 3 days he has remained with eyes closed, nonverbal, not responding to verbal cues, not eating, not drinking. Thus far, workup for infection has been unremarkable, with only a few LP labs still pending. Because no infectious process can be identified patient is episode of fever, tachycardia and tachypnea remain concerning for possible brief transitioned into malignant catatonia. Currently patient is afebrile and vitals WNL however the risks increase the longer catatonia persists and ECT remains the most viable treatment option -court scheduled for today 12/12 ECT today. Discussed case in detail with Dr. Lira who agreed with proceeding to ECT for following reasons: 1. He remains with Severe catatonia; he is not eating, drinking, talking or opening his eyes, responding to verbal stimuli or getting out of bed; he cannot communicate or receive information; he continues to need IV fluids, nutrition without which he would go into organ failure and . 2. This past weekend, he became febrile with a temperature spiking to 105 degrees; he was tachycardic to 133, tachypneic to 22 RR? temperature lowered but he remained febrile for the next day...... After thorough workup which included an LP, chest x-ray, UA, RSV/COVID/flu? no infectious process identified, other than possible sinusitis. Was this episode of autonomic dysregulation a brief crossover into malignant catatonia? Concern for patients condition to turn malignant increases the longer catatonia persists. 3. The longer a person remains catatonic the harder it becomes to resolve it. Prolonged catatonia correlates with higher risk of serious medical complications, including ?and include the risks associated with continuous IV, [place], and being bed bound. A person can rapidly deteriorate despite being on benzodiaepines. 4. Literature recommends a Switch to ECT when: Lorazepam (Ativan) fails after 3?5 days of adequate dosing (e.g., 6?12 mg/day) to prevent poor outcome (Electroconvulsive therapy in catatonic patients: Efficacy and predictors of response (2015)) -Will continue with ECT [facility] Will treat with Diazepam 5mg IV TID to treat for Benzo withdrawal and to treat catatonia; as pt improves, will taper benzo 12/13 Patient open his eyes, started answering questions by nodding his head and remained so throughout the day. Office Manager Executive Assistant explained patient's condition and treatment though doubtful patient understood much of it. Office Manager Executive Assistant gave him 2 doses of IV Ativan 2 mg which seemed to help because Later on investment underwriter was informed the patient was again talking, eating and drinking. ECT tomorrow but if patient remains much improved, maybe able to return to the psychiatric unit -discussed case with Dr. Serrano and Dr. Lira and will continue benzos both to help make sure catatonia does not return and to avoid benzo withdrawal RETURNED TO PSYCH UNIT M5 (12/14): Patient significantly improved, walking, talking, eating, drinking and moving about. Patient was able to return to the psych floor. Plan is to continue ECT doing better on ativan 1mg tid, on 1:1 eating- some odd behaviors but no longer fully catatonic! 12/16 - dc 1:1, pt requested ensure with meals- maybe be rebound hunger from not eating while catatonic. reports fine no clear report from patient of prior days when he was catatonic- but now sleeping, eating and drinking fluids- denies si/hi/psychosis- refused ativan this am but couldn't say why - When asked about student/work - he says he had a job in [place]- Case discussed with dr Lira who feels ECT helped- when ativan hadn't now doing well on on current ativan- no longer need for 1:1 12/18 Patient remains significantly improved and perhaps with no residual catatonic symptoms. Patient eating, drinking, talking, walking and interacting appropriately (keeping in mind ASD) Patient does not remember any of the events preceding this admission or during until getting to the psychiatric floor; catatonia and treatment explained to patient and he is amenable to continuing with ECT and benzodiazepines. Patient says he feels back to his regular self in his father was present, says he thinks so too. Patient denies any psychotic symptoms at all Although patient is much improved, he remained significantly vulnerable to return of catatonic symptoms. Discussed with Dr. Lira who agrees to Continue with ECT on 12/19 and 12/21 so as to prevent any return of catatonic symptoms; will continue with Ativan but likely further taper at some point. Will continue to assess. Regarding guardianship, at this time investment underwriter does not see a need for patient to have a guardian. Currently however patient has no outpatient providers and no where to live; where patient to be discharged now he would likely become quickly impaired 12/19 Patient says he is doing well. He remains feeling like his normal self. Patient continues to deny any AH or paranoid ideations and says he does not remember having any of these before. He says he finds the atmosphere on the unit to be pretty good and has no complaints. Patient asked about ECT, how much more he is going to get and agrees to treatment plan. Discussed post discharge and patient said he liked living in [place] and is considering going back to his mother's there but wonders if staying here might be easier. He said he also is considering going to his aunt's house in [place]. 12/20 Patient remains organized in speech and behavior. Talked about ECT, talked about his goals. Patient said he would like to find working computers, something he has been interested in for years. He has some ambivalence about returning to [place] since he says he and his mom have very different view on things; she very much wanted him to join the [employer] though he did not think it was necessarily a good fit for him. Discussed autism and patient knows that he has had this diagnosis and has worked through it for years. He continues to deny any psychotic symptoms at all. -patient's mother told manager social responsibility that after having talked with them on the phone for the past several days she says he sounds like his regular self. 12/21 no change in presentation; no problems with ECT denies any psychiatric symptoms; denies psychotic symptoms, Pt shared ambivalence about returning to live w/ mom in [place]; he agrees that option of staying in correction here is precarious. Family meeting tuesday -ECT on tuesday and then will re-assess -continue ativan 1 mg TID (to prevent return of symptoms) Impression: Thankfully catatonic symptoms have fully resolved; will continue with ECT and benzo treatment for now and continually reassess. Regarding recent diagnosis of schizophrenia from other hospitalization and from collateral: Currently patient denies any psychotic symptoms. Patient has autistic spectrum disorder, which some of the symptoms can present similar to being internally preoccupied.... Will continue to monitor. At this time will continue with schizophrenic diagnosis but leave it as provisional... Patient continues to deny symptoms however and presents organized in speech and behavior. It is possible that patient has schizophrenia but is being treated with ECT... Or that he does not have schizophrenia Plan: q5's SECTION ; court-ordered ECT and medications Continue Ativan 1 mg t.i.d. p.o. for both benzo withdrawal and to avoid any return of catatonic symptoms ECT MWF (Court ordered; pt on Section ) ECT #1 on 12/12 ECT #2 on 12/14 ECT #3 on 12/17 ECT #4 on 12/19 ECT #5 on 12/21 ECT #6 pending 12/24 Patient educated on: diagnosis and ECT Informed Consent: understands and further education needed Reason for continued inpatient stay Substantial Risk for: rapid decompensation Time Spent With Patient Time: Total time managing care of this patient today ____ minutes.
[2024-12-21] MEDS: LORazepam 1 MG TABLET PO ×3 (10:05→20:50)
[2024-12-21] MEDS: Multivitamin TABLET 1 TAB PO (10:05)
--- NOTE | 2024-12-22 07:27 | P.PNPSI_ITS ---
Subjective Subjective Date of Service: 12/22/24 Reason For Visit: catatonia/psychosis/autism Subjective Notes: Section 8 Interim History: Pt seen in milieu, met with team. More visable, appears more relaxed with peers, milieu Denies anxiety, overall brighter Denies sx of concern Medication Compliance: Yes Side effects from medications: No Attending Groups: Intermittent Review of Systems Acute medical concerns: No Review of Systems Review of Systems Denies Mental Status Exam Mental Status Exam Patient Appearance: Appropriate Patient Orientation: Person and Place Level of Consciousness: Alert Patient Behavior: Appropriate, Cooperative and Good Eye Contact Mood Description: Constricted Affect Description: Constricted Patient Cognition Impaired: No Ability to Follow Directions: Good Speech Pattern: Spontaneous Speech Judgement: Fair Diagnostics Vital Signs (24Hr): Vital Signs - 24 hr 12/21/24 09:18 12/21/24 09:23 12/21/24 09:25 Temperature 98 F Pulse Rate 89 101 H 94 Respiratory Rate 16 20 20 Blood Pressure 147/69 H 136/69 135/66 Pulse Oximetry 99 93 95 Oxygen Delivery Method Nasal Cannula Room Air Nasal Cannula Oxygen Flow Rate 2 2 2 12/21/24 09:30 12/21/24 09:45 12/21/24 10:00 Temperature 98 F Pulse Rate 90 90 88 Respiratory Rate 20 20 16 Blood Pressure 131/62 107/43 L 116/68 Pulse Oximetry 95 95 98 Oxygen Delivery Method Nasal Cannula Room Air Oxygen Flow Rate 2 12/21/24 22:00 Temperature 99.3 F Pulse Rate 96 Respiratory Rate 15 Blood Pressure 111/61 Pulse Oximetry 96 Oxygen Delivery Method Oxygen Flow Rate BMI result Body Mass Index 30.2 Labs 12/15/24 07:54 12/15/24 07:54 Medications Medications Current Medications Al Hydroxide/Mg Hydroxide (Magnesium Hydrox/Alum Hydrox 30 Ml Oral.Susp) 30 ml PO Q6H PRN PRN Reason: Heartburn/Nausea Lorazepam (Lorazepam 1 Mg Tablet) 1 mg PO TID [facility] Last Admin: 12/21/24 20:50 Dose: 1 mg Magnesium Hydroxide (Milk Of Magnesia 30 Ml Oral.Susp) 30 ml PO DAILY PRN PRN Reason: Constipation Multivitamins/Vitamin C (Multivitamin Tablet) 1 tab PO DAILY [facility] Last Admin: 12/21/24 10:05 Dose: 1 tab Naloxone HCl (Naloxone Hcl 0.4 Mg/Ml Vial) 0.04 mg IVPUSH Q5M PRN PRN Reason: Excessive sedation or RR < 8 Allergies Allergies Allergy/AdvReac Type Severity Reaction Status Date / Time No Known Allergies Allergy Verified 11/28/24 13:56 Assessment & Plan Assessment & Plan (1) 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 Pt transferred to medical floor from ICU for continued IV benzodiazepines, IV fluids, TPN. Patient court-ordered treatment including ECT. Once patient received ECT he started coming out of catatonic symptoms Initial Impression: It is difficult to know the etiology of catatonia. People with autism, psychotic disorders, or taking a antipsychotic medications are all at increased risk for catatonia and patient has all 3 risk factors (so it seems). Again from collateral it sounds very possible that catatonic symptoms started in the community in the week prior to this admission. [facility] at [facility] with IV benzodiazepines,, patient had observed but minimal improvement with IV diazepam; now on IV Ativan with some additional improvement. Discussed case thoroughly with Dr. Lira who agrees that current treatment plan of IV Ativan as both appropriate and necessary treatment to resolve catatonia and prevent malignant catatonia. Heavy Coil Winder has discussed the possibility of patient needing ECT treatment if IV benzos do not adequately resolve symptoms; family remains cautious about ECT but seems to understand that this could be necessary. After receiving collateral from patient's mother (see below), it seems that patient was demonstrating significant changes in his behavior, very different from his normal way of functioning and his normal expressions of autism. That said , some other family members perspective is with discrepancy from mother's collateral so it is not totally clear. But per the mother, The behavioral changes described sound like prodrome of schizophrenia. Patient's father also observed patient responding to internal stimuli, also very different from his normal expressions. Heavy Coil Winder met with and discussed case with patient's father and then talked with patient's mother who currently lives in [place]. Collateral from patient's mother, Cliff, ([phone]) ASD; IEP, honors classes, working; [employer]; graduated [employer]; -around 22 years old, seemed more reclusive and pt started changing -lost job September 2022; missing days, not focused; got fired at next job for going too slow -a year ago, less ADL's, not showering, less motivation, mom thinking more than just ASD since not like this at all in [employer] -Refusing to go to appointments. Got him to ED and psych doctor evaluated but was not able to be Sectioned; mom tried other times to get him to doctor, to hospital, but police felt did not meet criteria to section him... -still minimal ADL's; in Fall 2023 started sleeping outside in the park which again, out of character -Jul 2024 making slow movements, like in slow motion, but able to pull out of it; kept sleeping outside in front of her door, peeing on himself or in bottles. -Episodes of staring off and not responding; intermittently would look agitated -Mom sent him to [place] to be with father -no hx of drug/alcohol use -had gone 36 hours w/out sleep, but not hyperactive, withdrawn and either quiet on laptop or making lots of food but not eating -no seizure hx -no hx of medication Hospital course: Initially patient admitted to for psychosis; quickly developed severe catatonia, rigidity, not eating or drinking or moving or talking at all. Moved to medical floor and then ICU for IV benzos: 1.Initially Patient was 1st sent from to the medical floor. Due to national shortage of liquid Ativan, He received midazolam 2 mg IV however patient had no response. He was then given diazepam 10 mg IV and within 30 seconds, he relaxed his muscles, folded his arms, turned over on his side and moved his legs, 1st natural movements observed for several days. Heavy Coil Winder collaborated with Dr. Lira and after literature review, both agreed that patient required immediate IV diazepam treatment to prevent patient from progressing towards a malignant catatonia; since patient had demonstrated initial response to diazepam he should be continued on diazepam; the literature recommends diazepam IV infusion at 10mg/500ml saline at 1.25mg/hour; diazepam infusion not available per hospital formulary so agreed to diazepam 2.5 mg IV push q.2 hours. 2)Hospitalist team/medical floor nursing staff felt patient should be observed on ICU for this administration and he was transferred to the ICU. In the ICU, Patient treated with IV Diazepam for about 36 hours with limited effect, with rigidity having resolved (and periodically briefly opening his eyes) but other symptoms of catatonia remaining including, not following verbal commands and negativism (resistance of examine his manipulation with equal strength). Team agreed to switch from diazepam to Ativan 2 mg IV q.i.d.. After about 12 hours patient improved some more, responding to noxious stimuli/sternal rub and grimaced and actively pushed examiner's hand away. After about 36 hours give or take, dose increase to Ativan 2 mg IV q4H. Patient able to be transferred back to the medical floor. 3) patient on medical floor receiving Ativan 2 mg IV q4h. He remains in the bed with his eyes closed, not responding to verbal commands but is overall moving all limbs more naturally on his own. Negative his remains. ICU 12/06 Patient remains with same minimal improvement observed when starting diazepam; he is moving on his own a little more naturally though still minimally. Will appeared to be trying to open his eyes sometimes when his name is called. Continues with negativism however otherwise is not rigid. Heavy Coil Winder met with patient's father and stepmother Debra. Initially family expressed dissatisfaction with treatment and wanted patient transferred to [facility]. Dr. Jiang reached out to [facility] to discuss case and they declined to take patient at this time, not having a bed available and also not being able to provide ECT should patient require it. Patient's family accepted this. Heavy Coil Winder again spent about an hour providing education on catatonia, its causes and its treatments, including ECT; explained ECT procedure as well. Dr. Lira also provided the family with printed out literature regarding these topics, including ECT. After discussion, patient's family seemed to agree with current treatment plan of continuing with benzodiazepines. Since patient had only a minimal response to IV diazepam, decision was made to switch to IV Ativan to see if this would be more effective; also discussed with family who agreed with this plan. Heavy Coil Winder again offered to talk with family member who is a neurologist and gave them press writer's contact information to pass along. 12/07 some change in presentation as patient now responsive to noxious stimuli/chest rub, grimacing and pushing examiner's hand away. Heavy Coil Winder and Dr. Lira agree this is improvement and evidence that Ativan is helping (progression: rigidity and no response to noxious stimuli -- progressed to absence of rigidity but still no response to noxious stimuli--progressed to now, pt with active response to noxious stimuli). -Literature reviewed and after team discussion agreed to increase IV Ativan to 2 mg q.4h -brain MRI unremarkable -Discussed with Dr. Jiang who felt patient could be safely transferred back to medical floor out of ICU; family informed Medical floor: 12/08 patient remains catatonic, not opening his eyes, not responding to any verbal interactions; remains with negativism; however is moving increasingly or naturally on his own. Discussed with dr. Ernandez. -continue with Ativan 2 mg q4h for now 12/09 Last night/early AM pt spiked fever 105, tachy, tachypneic. Treated with abx, cooling blanket, rectal acetaminophen; CXR negative. Temp came down and pt only mildly tachy; RR 18. Also...This morning, pt woke up, talked with Dr. Ernandez and asked for a sandwich; a little later with nurse, he knew his name, and that he was at [facility]. Later in day, on approach, pt sleeping, sometimes yawning; did not wake up to speaking his name; press writer did not do sternal rub -tried to test for rigidity but not able to assess since pt's remains w/ negativism (catatonic symptom of resisting examiner w/ equal force) but pt appears to be moving around easily enough on his own. -did not really at risk for NMS since pt only on Diazepam T:99.4 (on cooling blanket) BP:112/68 O2 96% HR 98 RR: 18 lips appear swollen UA unremarkable CXR unremarkable negative covid/rsv/flu Heavy Coil Winder discussed case with Dr. Lira; press writer Discussed case with Dr. Ernandez regarding blood cultures/LP; at this time Dr. Ernandez would like to continue monitoring but advance to LP if patient does not improve. Hospital ran out of Ativan; will switch back to diazepam Impression: Despite the fact that patient spiked a fever and was tachy and tachypneic, the fact that he woke up, was talking, interacting oriented to self and place was very encouraging. Ativan seems to have been more effective than diazepam and remains preferred, however diazepam has had some positive effect. Patient being worked up for infectious etiology, though he does not appear ill looking. It is possible that fever, increased heart rate respiratory rate was a brief crossing into a malignant catatonia; will continue with current treatment plan; ECT remains consider most effective treatment however need court order 12/11 LP so far mostly negative with a few parameters still pending; Afebrile and vitals WNL Patient remains with eyes closed but is moving his body and head around on his own; sometimes role in his head around and around. Still does not respond to verbal stimuli. Waxy flexibility noted; initially only minimal negativeism however this increased with examiners manipulations. Has not open his eyes or talked since Friday 12/08 (per father patient also talked with his mother on the phone, talked with his grandmother). -discussed with pharmacist and some additional Ativan has been procured though in a very limited supply; will restart Ativan IV -of note diazepam infusion is not possible per pharmacy -would also consider memantine, though must be taken p.o. Impression: Patient has certainly improved with IV benzodiazepines, lorazepam seeming to be the most effective. However he remains with severe catatonia. Although he open his eyes and spoke briefly, he has not done so for 3 days and for the past 3 days he has remained with eyes closed, nonverbal, not responding to verbal cues, not eating, not drinking. Thus far, workup for infection has been unremarkable, with only a few LP labs still pending. Because no infectious process can be identified patient is episode of fever, tachycardia and tachypnea remain concerning for possible brief transitioned into malignant catatonia. Currently patient is afebrile and vitals WNL however the risks increase the longer catatonia persists and ECT remains the most viable treatment option -court scheduled for today 12/12 ECT today. Discussed case in detail with Dr. Lira who agreed with proceeding to ECT for following reasons: 1. He remains with Severe catatonia; he is not eating, drinking, talking or opening his eyes, responding to verbal stimuli or getting out of bed; he cannot communicate or receive information; he continues to need IV fluids, nutrition without which he would go into organ failure and . 2. This past weekend, he became febrile with a temperature spiking to 105 degrees; he was tachycardic to 133, tachypneic to 22 RR? temperature lowered but he remained febrile for the next day...... After thorough workup which included an LP, chest x-ray, UA, RSV/COVID/flu? no infectious process identified, other than possible sinusitis. Was this episode of autonomic dysregulation a brief crossover into malignant catatonia? Concern for patients condition to turn malignant increases the longer catatonia persists. 3. The longer a person remains catatonic the harder it becomes to resolve it. Prolonged catatonia correlates with higher risk of serious medical complications, including ?and include the risks associated with continuous IV, S[place]ana, and being bed bound. A person can rapidly deteriorate despite being on benzodiaepines. 4. Literature recommends a Switch to ECT when: Lorazepam (Ativan) fails after 3?5 days of adequate dosing (e.g., 6?12 mg/day) to prevent poor outcome (Electroconvulsive therapy in catatonic patients: Efficacy and predictors of response (2015)) -Will continue with ECT WMF Will treat with Diazepam 5mg IV TID to treat for Benzo withdrawal and to treat catatonia; as pt improves, will taper benzo 12/13 Patient open his eyes, started answering questions by nodding his head and remained so throughout the day. Heavy Coil Winder explained patient's condition and treatment though doubtful patient understood much of it. Heavy Coil Winder gave him 2 doses of IV Ativan 2 mg which seemed to help because Later on press writer was informed the patient was again talking, eating and drinking. ECT tomorrow but if patient remains much improved, maybe able to return to the psychiatric unit -discussed case with Dr. Serrano and Dr. Lira and will continue benzos both to help make sure catatonia does not return and to avoid benzo withdrawal RETURNED TO PSYCH UNIT M5 (12/14): Patient significantly improved, walking, talking, eating, drinking and moving about. Patient was able to return to the psych floor. Plan is to continue ECT doing better on ativan 1mg tid, on 1:1 eating- some odd behaviors but no longer fully catatonic! 12/16 - dc 1:1, pt requested ensure with meals- maybe be rebound hunger from not eating while catatonic. 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 Patient eating, drinking, talking, walking and interacting appropriately (keeping in mind ASD) Patient does not remember any of the events preceding this admission or during until getting to the psychiatric floor; catatonia and treatment explained to patient and he is amenable to continuing with ECT and benzodiazepines. Patient says he feels back to his regular self in his father was present, says he thinks so too. Patient denies any psychotic symptoms at all Although patient is much improved, he remained significantly vulnerable to return of catatonic symptoms. Discussed with Dr. Lira who agrees to Continue with ECT on 12/19 and 12/21 so as to prevent any return of catatonic symptoms; will continue with Ativan but likely further taper at some point. Will continue to assess. Regarding guardianship, at this time press writer does not see a need for patient to have a guardian. Currently however patient has no outpatient providers and no where to live; where patient to be discharged now he would likely become quickly impaired 12/19 Patient says he is doing well. He remains feeling like his normal self. Patient continues to deny any AH or paranoid ideations and says he does not remember having any of these before. He says he finds the atmosphere on the unit to be pretty good and has no complaints. Patient asked about ECT, how much more he is going to get and agrees to treatment plan. Discussed post discharge and patient said he liked living in [place] and is considering going back to his mother's there but wonders if staying here might be easier. He said he also is considering going to his aunt's house in [place]. 12/20 Patient remains organized in speech and behavior. Talked about ECT, talked about his goals. Patient said he would like to find working computers, something he has been interested in for years. He has some ambivalence about returning to [place] since he says he and his mom have very different view on things; she very much wanted him to join the [employer] though he did not think it was necessarily a good fit for him. Discussed autism and patient knows that he has had this diagnosis and has worked through it for years. He continues to deny any psychotic symptoms at all. -patient's mother told social director that after having talked with them on the phone for the past several days she says he sounds like his regular self. 12/21 no change in presentation; no problems with ECT denies any psychiatric symptoms; denies psychotic symptoms, Pt shared ambivalence about returning to live w/ mom in [place]; he agrees that option of staying in group home here is precarious. Family meeting tuesday -ECT on tuesday and then will re-assess -continue ativan 1 mg TID (to prevent return of symptoms) 12/22 Continue tx Impression: Thankfully catatonic symptoms have fully resolved; will continue with ECT and benzo treatment for now and continually reassess. Regarding recent diagnosis of schizophrenia from other hospitalization and from collateral: Currently patient denies any psychotic symptoms. Patient has autistic spectrum disorder, which some of the symptoms can present similar to being internally preoccupied.... Will continue to monitor. At this time will continue with schizophrenic diagnosis but leave it as provisional... Patient continues to deny symptoms however and presents organized in speech and behavior. It is possible that patient has schizophrenia but is being treated with ECT... Or that he does not have schizophrenia Plan: q5's SECTION ; court-ordered ECT and medications Continue Ativan 1 mg t.i.d. p.o. for both benzo withdrawal and to avoid any return of catatonic symptoms ECT MWF (Court ordered; pt on Section 8) ECT #1 on 12/12 ECT #2 on 12/14 ECT #3 on 12/17 ECT #4 on 12/19 ECT #5 on 12/21 ECT #6 pending 12/24 Reason for continued inpatient stay Substantial Risk for: rapid decompensation Time Spent With Patient Time: Total time managing care of this patient today ____ minutes.
[2024-12-22] MEDS: LORazepam 1 MG TABLET PO ×3 (09:11→21:07)
[2024-12-22] MEDS: Multivitamin TABLET 1 TAB PO (09:11)
[2024-12-22 10:00] VITALS: BP 129/60; PULSE 88; RESP 16; TEMP 36.4; O2SAT 100
[2024-12-22 21:47] VITALS: BP 107/55; PULSE 85; RESP 15; TEMP 37.1; O2SAT 98
--- NOTE | 2024-12-23 05:45 | HO.PSYCHPN ---
Subjective Subjective Date of Service: 12/23/24 Reason For Visit: catatonia/psychosis/autism Subjective Notes: Section 8 Interim History: Pt seen in the milieu, discussed with team. Working on [employer], appears comfortable with peers in the common area. He denies sx of concern and is brief with tw, returning to his art/puzzle activity. Overall appears calm, in no acute distress, attentive to his environment. Medication Compliance: Yes Review of Systems Review of Systems Denies Mental Status Exam Mental Status Exam Patient Appearance: Appropriate Patient Orientation: Person and Place Level of Consciousness: Alert Patient Behavior: Appropriate, Cooperative and Good Eye Contact Mood Description: Constricted Affect Description: Constricted Patient Cognition Impaired: No Ability to Follow Directions: Good Speech Pattern: Spontaneous Speech Judgement: Fair Diagnostics Vital Signs (24Hr): Vital Signs - 24 hr 12/22/24 10:00 12/22/24 21:47 Temperature 97.5 F 98.7 F Pulse Rate 88 85 Respiratory Rate 16 15 Blood Pressure 129/60 107/55 L Pulse Oximetry 100 98 BMI result Body Mass Index 30.2 Labs 12/15/24 07:54 12/15/24 07:54 Medications Medications Current Medications Al Hydroxide/Mg Hydroxide (Magnesium Hydrox/Alum Hydrox 30 Ml Oral.Susp) 30 ml PO Q6H PRN PRN Reason: Heartburn/Nausea Lorazepam (Lorazepam 1 Mg Tablet) 1 mg PO TID [facility] Last Admin: 12/22/24 21:07 Dose: 1 mg Magnesium Hydroxide (Milk Of Magnesia 30 Ml Oral.Susp) 30 ml PO DAILY PRN PRN Reason: Constipation Multivitamins/Vitamin C (Multivitamin Tablet) 1 tab PO DAILY [facility] Last Admin: 12/22/24 09:11 Dose: 1 tab Naloxone HCl (Naloxone Hcl 0.4 Mg/Ml Vial) 0.04 mg IVPUSH Q5M PRN PRN Reason: Excessive sedation or RR < 8 Allergies Allergies Allergy/AdvReac Type Severity Reaction Status Date / Time No Known Allergies Allergy Verified 11/28/24 13:56 Assessment & Plan Assessment & Plan (1) 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 Pt transferred to medical floor from ICU for continued IV benzodiazepines, IV fluids, TPN. Patient court-ordered treatment including ECT. Once patient received ECT he started coming out of catatonic symptoms Initial Impression: It is difficult to know the etiology of catatonia. People with autism, psychotic disorders, or taking a antipsychotic medications are all at increased risk for catatonia and patient has all 3 risk factors (so it seems). Again from collateral it sounds very possible that catatonic symptoms started in the community in the week prior to this admission. Here at [facility] with IV benzodiazepines,, patient had observed but minimal improvement with IV diazepam; now on IV Ativan with some additional improvement. Discussed case thoroughly with Dr. Lira who agrees that current treatment plan of IV Ativan as both appropriate and necessary treatment to resolve catatonia and prevent malignant catatonia. Vocational Rehabilitation Counselor has discussed the possibility of patient needing ECT treatment if IV benzos do not adequately resolve symptoms; family remains cautious about ECT but seems to understand that this could be necessary. After receiving collateral from patient's mother (see below), it seems that patient was demonstrating significant changes in his behavior, very different from his normal way of functioning and his normal expressions of autism. That said , some other family members perspective is with discrepancy from mother's collateral so it is not totally clear. But per the mother, The behavioral changes described sound like prodrome of schizophrenia. Patient's father also observed patient responding to internal stimuli, also very different from his normal expressions. Vocational Rehabilitation Counselor met with and discussed case with patient's father and then talked with patient's mother who currently lives in [place]. Collateral from patient's mother, Cliff, ([phone]) ASD; IEP, honors classes, working; spelling [employer]; graduated [employer]; -around 22 years old, seemed more reclusive and pt started changing -lost job September 2022; missing days, not focused; got fired at next job for going too slow -a year ago, less ADL's, not showering, less motivation, mom thinking more than just ASD since not like this at all in [employer] -Refusing to go to appointments. Got him to ED and psych doctor evaluated but was not able to be Sectioned; mom tried other times to get him to doctor, to hospital, but police felt did not meet criteria to section him... -still minimal ADL's; in Fall 2023 started sleeping outside in the park which again, out of character -Jul 2024 making slow movements, like in slow motion, but able to pull out of it; kept sleeping outside in front of her door, peeing on himself or in bottles. -Episodes of staring off and not responding; intermittently would look agitated -Mom sent him to [facility] to be with father -no hx of drug/alcohol use -had gone 36 hours w/out sleep, but not hyperactive, withdrawn and either quiet on laptop or making lots of food but not eating -no seizure hx -no hx of medication Hospital course: Initially patient admitted to for psychosis; quickly developed severe catatonia, rigidity, not eating or drinking or moving or talking at all. Moved to medical floor and then ICU for IV benzos: 1.Initially Patient was 1st sent from to the medical floor. Due to national shortage of liquid Ativan, He received midazolam 2 mg IV however patient had no response. He was then given diazepam 10 mg IV and within 30 seconds, he relaxed his muscles, folded his arms, turned over on his side and moved his legs, 1st natural movements observed for several days. Vocational Rehabilitation Counselor collaborated with Dr. Lira and after literature review, both agreed that patient required immediate IV diazepam treatment to prevent patient from progressing towards a malignant catatonia; since patient had demonstrated initial response to diazepam he should be continued on diazepam; the literature recommends diazepam IV infusion at 10mg/500ml saline at 1.25mg/hour; diazepam infusion not available per hospital formulary so agreed to diazepam 2.5 mg IV push q.2 hours. 2)Hospitalist team/medical floor nursing staff felt patient should be observed on ICU for this administration and he was transferred to the ICU. In the ICU, Patient treated with IV Diazepam for about 36 hours with limited effect, with rigidity having resolved (and periodically briefly opening his eyes) but other symptoms of catatonia remaining including, not following verbal commands and negativism (resistance of examine his manipulation with equal strength). Team agreed to switch from diazepam to Ativan 2 mg IV q.i.d.. After about 12 hours patient improved some more, responding to noxious stimuli/sternal rub and grimaced and actively pushed examiner's hand away. After about 36 hours give or take, dose increase to Ativan 2 mg IV q4H. Patient able to be transferred back to the medical floor. 3) patient on medical floor receiving Ativan 2 mg IV q4h. He remains in the bed with his eyes closed, not responding to verbal commands but is overall moving all limbs more naturally on his own. Negative his remains. ICU 12/06 Patient remains with same minimal improvement observed when starting diazepam; he is moving on his own a little more naturally though still minimally. Will appeared to be trying to open his eyes sometimes when his name is called. Continues with negativism however otherwise is not rigid. Vocational Rehabilitation Counselor met with patient's father and stepmother Debra. Initially family expressed dissatisfaction with treatment and wanted patient transferred to [facility]. Dr. Jiang reached out to [facility] to discuss case and they declined to take patient at this time, not having a bed available and also not being able to provide ECT should patient require it. Patient's family accepted this. Vocational Rehabilitation Counselor again spent about an hour providing education on catatonia, its causes and its treatments, including ECT; explained ECT procedure as well. Dr. Lira also provided the family with printed out literature regarding these topics, including ECT. After discussion, patient's family seemed to agree with current treatment plan of continuing with benzodiazepines. Since patient had only a minimal response to IV diazepam, decision was made to switch to IV Ativan to see if this would be more effective; also discussed with family who agreed with this plan. Vocational Rehabilitation Counselor again offered to talk with family member who is a neurologist and gave them science writer's contact information to pass along. 12/07 some change in presentation as patient now responsive to noxious stimuli/chest rub, grimacing and pushing examiner's hand away. Vocational Rehabilitation Counselor and Dr. Lira agree this is improvement and evidence that Ativan is helping (progression: rigidity and no response to noxious stimuli -- progressed to absence of rigidity but still no response to noxious stimuli--progressed to now, pt with active response to noxious stimuli). -Literature reviewed and after team discussion agreed to increase IV Ativan to 2 mg q.4h -brain MRI unremarkable -Discussed with Dr. Jiang who felt patient could be safely transferred back to medical floor out of ICU; family informed Medical floor: 12/08 patient remains catatonic, not opening his eyes, not responding to any verbal interactions; remains with negativism; however is moving increasingly or naturally on his own. Discussed with dr. Ernandez. -continue with Ativan 2 mg q4h for now 12/09 Last night/early AM pt spiked fever 105, tachy, tachypneic. Treated with abx, cooling blanket, rectal acetaminophen; CXR negative. Temp came down and pt only mildly tachy; RR 18. Also...This morning, pt woke up, talked with Dr. Ernandez and asked for a sandwich; a little later with nurse, he knew his name, and that he was at [facility]. Later in day, on approach, pt sleeping, sometimes yawning; did not wake up to speaking his name; science writer did not do sternal rub -tried to test for rigidity but not able to assess since pt's remains w/ negativism (catatonic symptom of resisting examiner w/ equal force) but pt appears to be moving around easily enough on his own. -did not really at risk for NMS since pt only on Diazepam T:99.4 (on cooling blanket) BP:112/68 O2 96% HR 98 RR: 18 lips appear swollen UA unremarkable CXR unremarkable negative covid/rsv/flu Vocational Rehabilitation Counselor discussed case with Dr. Lira; science writer Discussed case with Dr. Ernandez regarding blood cultures/LP; at this time Dr. Ernandez would like to continue monitoring but advance to LP if patient does not improve. Hospital ran out of Ativan; will switch back to diazepam Impression: Despite the fact that patient spiked a fever and was tachy and tachypneic, the fact that he woke up, was talking, interacting oriented to self and place was very encouraging. Ativan seems to have been more effective than diazepam and remains preferred, however diazepam has had some positive effect. Patient being worked up for infectious etiology, though he does not appear ill looking. It is possible that fever, increased heart rate respiratory rate was a brief crossing into a malignant catatonia; will continue with current treatment plan; ECT remains consider most effective treatment however need court order 12/11 LP so far mostly negative with a few parameters still pending; Afebrile and vitals WNL Patient remains with eyes closed but is moving his body and head around on his own; sometimes role in his head around and around. Still does not respond to verbal stimuli. Waxy flexibility noted; initially only minimal negativeism however this increased with examiners manipulations. Has not open his eyes or talked since Friday 12/08 (per father patient also talked with his mother on the phone, talked with his grandmother). -discussed with pharmacist and some additional Ativan has been procured though in a very limited supply; will restart Ativan IV -of note diazepam infusion is not possible per pharmacy -would also consider memantine, though must be taken p.o. Impression: Patient has certainly improved with IV benzodiazepines, lorazepam seeming to be the most effective. However he remains with severe catatonia. Although he open his eyes and spoke briefly, he has not done so for 3 days and for the past 3 days he has remained with eyes closed, nonverbal, not responding to verbal cues, not eating, not drinking. Thus far, workup for infection has been unremarkable, with only a few LP labs still pending. Because no infectious process can be identified patient is episode of fever, tachycardia and tachypnea remain concerning for possible brief transitioned into malignant catatonia. Currently patient is afebrile and vitals WNL however the risks increase the longer catatonia persists and ECT remains the most viable treatment option -court scheduled for today 12/12 ECT today. Discussed case in detail with Dr. Lira who agreed with proceeding to ECT for following reasons: 1. He remains with Severe catatonia; he is not eating, drinking, talking or opening his eyes, responding to verbal stimuli or getting out of bed; he cannot communicate or receive information; he continues to need IV fluids, nutrition without which he would go into organ failure and . 2. This past weekend, he became febrile with a temperature spiking to 105 degrees; he was tachycardic to 133, tachypneic to 22 RR? temperature lowered but he remained febrile for the next day...... After thorough workup which included an LP, chest x-ray, UA, RSV/COVID/flu? no infectious process identified, other than possible sinusitis. Was this episode of autonomic dysregulation a brief crossover into malignant catatonia? Concern for patients condition to turn malignant increases the longer catatonia persists. 3. The longer a person remains catatonic the harder it becomes to resolve it. Prolonged catatonia correlates with higher risk of serious medical complications, including ?and include the risks associated with continuous IV, Sultana, and being bed bound. A person can rapidly deteriorate despite being on benzodiaepines. 4. Literature recommends a Switch to ECT when: Lorazepam (Ativan) fails after 3?5 days of adequate dosing (e.g., 6?12 mg/day) to prevent poor outcome (Electroconvulsive therapy in catatonic patients: Efficacy and predictors of response (2015)) -Will continue with ECT [facility] Will treat with Diazepam 5mg IV TID to treat for Benzo withdrawal and to treat catatonia; as pt improves, will taper benzo 12/13 Patient open his eyes, started answering questions by nodding his head and remained so throughout the day. Vocational Rehabilitation Counselor explained patient's condition and treatment though doubtful patient understood much of it. Vocational Rehabilitation Counselor gave him 2 doses of IV Ativan 2 mg which seemed to help because Later on science writer was informed the patient was again talking, eating and drinking. ECT tomorrow but if patient remains much improved, maybe able to return to the psychiatric unit -discussed case with Dr. Serrano and Dr. Lria and will continue benzos both to help make sure catatonia does not return and to avoid benzo withdrawal RETURNED TO PSYCH UNIT M5 (12/14): Patient significantly improved, walking, talking, eating, drinking and moving about. Patient was able to return to the psych floor. Plan is to continue ECT doing better on ativan 1mg tid, on 1:1 eating- some odd behaviors but no longer fully catatonic! 12/16 - dc 1:1, pt requested ensure with meals- maybe be rebound hunger from not eating while catatonic. reports fine no clear report from patient of prior days when he was catatonic- but now sleeping, eating and drinking fluids- denies si/hi/psychosis- refused ativan this am but couldn't say why - When asked about student/work - he says he had a job in [employer]- Case discussed with dr Lira who feels ECT helped- when ativan hadn't now doing well on on current ativan- no longer need for 1:1 12/18 Patient remains significantly improved and perhaps with no residual catatonic symptoms. Patient eating, drinking, talking, walking and interacting appropriately (keeping in mind ASD) Patient does not remember any of the events preceding this admission or during until getting to the psychiatric floor; catatonia and treatment explained to patient and he is amenable to continuing with ECT and benzodiazepines. Patient says he feels back to his regular self in his father was present, says he thinks so too. Patient denies any psychotic symptoms at all Although patient is much improved, he remained significantly vulnerable to return of catatonic symptoms. Discussed with Dr. Lira who agrees to Continue with ECT on 12/19 and 12/21 so as to prevent any return of catatonic symptoms; will continue with Ativan but likely further taper at some point. Will continue to assess. Regarding guardianship, at this time science writer does not see a need for patient to have a guardian. Currently however patient has no outpatient providers and no where to live; where patient to be discharged now he would likely become quickly impaired 12/19 Patient says he is doing well. He remains feeling like his normal self. Patient continues to deny any AH or paranoid ideations and says he does not remember having any of these before. He says he finds the atmosphere on the unit to be pretty good and has no complaints. Patient asked about ECT, how much more he is going to get and agrees to treatment plan. Discussed post discharge and patient said he liked living in [place] and is considering going back to his mother's there but wonders if staying here might be easier. He said he also is considering going to his aunt's house in [place]. 12/20 Patient remains organized in speech and behavior. Talked about ECT, talked about his goals. Patient said he would like to find working computers, something he has been interested in for years. He has some ambivalence about returning to [place] since he says he and his mom have very different view on things; she very much wanted him to join the [employer] though he did not think it was necessarily a good fit for him. Discussed autism and patient knows that he has had this diagnosis and has worked through it for years. He continues to deny any psychotic symptoms at all. -patient's mother told hospice social worker that after having talked with them on the phone for the past several days she says he sounds like his regular self. 12/21 no change in presentation; no problems with ECT denies any psychiatric symptoms; denies psychotic symptoms, Pt shared ambivalence about returning to live w/ mom in [place]; he agrees that option of staying in half-way here is precarious. Family meeting tuesday -ECT on tuesday and then will re-assess -continue ativan 1 mg TID (to prevent return of symptoms) 12/23 Continue tx Impression: Thankfully catatonic symptoms have fully resolved; will continue with ECT and benzo treatment for now and continually reassess. Regarding recent diagnosis of schizophrenia from other hospitalization and from collateral: Currently patient denies any psychotic symptoms. Patient has autistic spectrum disorder, which some of the symptoms can present similar to being internally preoccupied.... Will continue to monitor. At this time will continue with schizophrenic diagnosis but leave it as provisional... Patient continues to deny symptoms however and presents organized in speech and behavior. It is possible that patient has schizophrenia but is being treated with ECT... Or that he does not have schizophrenia Plan: q5's SECTION 8/8a; court-ordered ECT and medications Continue Ativan 1 mg t.i.d. p.o. for both benzo withdrawal and to avoid any return of catatonic symptoms ECT MWF (Court ordered; pt on Section 8/8a) ECT #1 on 12/12 ECT #2 on 12/14 ECT #3 on 12/17 ECT #4 on 12/19 ECT #5 on 12/21 ECT #6 pending 12/24 Reason for continued inpatient stay Substantial Risk for: rapid decompensation Time Spent With Patient Time: Total time managing care of this patient today ____ minutes.
[2024-12-23] MEDS: LORazepam 1 MG TABLET PO ×2 (08:24→16:20)
[2024-12-23] MEDS: Multivitamin TABLET 1 TAB PO (08:24)
[2024-12-23 10:00] VITALS: BP 113/63; PULSE 84; RESP 16; TEMP 36.4; O2SAT 99
[2024-12-23 19:50] VITALS: BP 120/64; PULSE 97; RESP 15; TEMP 36.7; O2SAT 100
[2024-12-24] VITALS (10 sets, daily range): BP systolic 112–168; BP diastolic 66–89; PULSE 81–102; RESP 15–18; TEMP 36.1–36.8; O2SAT 98–100
[2024-12-24] MEDS: Lactated Ringers 1,000 ML 100 ML IVCONT (07:16)
--- NOTE | 2024-12-24 07:59 | MHC.SHP ---
Pre-Procedural Eval Section A - 24 Hr Update-Section A only Date of Service: 12/24/24 The patient is an INPATIENT: Yes Changes since office visit: Yes Patient answered all questions; No Cold of Flu in the past 2 weeks, No New Medical Problems and No Changes in Medication The patient has been examined within 24 hours of the surgical procedure. The History & Physical has been completed within 30 days and I have reviewed it.: Yes Section B - Complete if H&P > 30 days Chief Complaint: catatonia/psychosis/autism Allergies: Allergies Allergy/AdvReac Type Severity Reaction Status Date / Time No Known Allergies Allergy Verified 11/28/24 13:56 Plan I have reviewed the history and physical and performed a pertinent physical examination on my patient. No changes have occurred unless specified. Time Spent With Patient Time: Total time managing care of this patient today ____ minutes.
--- NOTE | 2024-12-24 08:12 | P.CONAN_ITS ---
[facility] Active Problems Active Problems: All Active Problems Fever, unknown origin (Acute) Catatonia (Acute) Schizophrenia (Acute) Autism spectrum disorder (Acute) Psychiatric illness (Acute) Past Medical History Medical History Fever, unknown origin Autism spectrum disorder Functional capacity: independent ambulation Family History Family history of problems with anesthesia: No Surgical History History of Problems with Anesthesia: No Social History Social History Household Members: None Household Members Other:: pt is admit fr M# for catatonia, not response to questions, JULIO CESAR Housing: Homeless Do you presently have visiting nurse or other home services: No Comment: 1:1 sitter at bedside Patient Tobacco Use Status: Never used Tobacco e-Cigarette/Vaping Use: Never Used Second Hand Smoke Exposure: No Use of substances other than those prescribed or required for medical reasons: No Currently Displaying Signs/Symptoms of Drug Intoxication Withdrawal: No Any prior treatment program specific to substance use: No Spiritual Healthcare Practices: unable to participate Restorationism Healthcare Practices: unable to participate Cultural Healthcare Practices: unable to participate Advance Directives: No Advance Directives Information Provided: Yes Do you have thoughts of harming others: None Do you have a plan to hurt others: No Plan Recently lost weight without trying: Unsure Poor oral hygiene: No service: No Sexual orientation: Did not discuss Meds Allergies Allergy/AdvReac Type Severity Reaction Status Date / Time No Known Allergies Allergy Verified 11/28/24 13:56 Active Medications: Current Medications Al Hydroxide/Mg Hydroxide (Magnesium Hydrox/Alum Hydrox 30 Ml Oral.Susp) 30 ml PO Q6H PRN PRN Reason: Heartburn/Nausea Lactated Ringer's (Lr) 1,000 mls @ 100 mls/hr IVCONT .Q10H [facility] Last Admin: 12/24/24 07:16 Dose: 100 mls/hr Lorazepam (Lorazepam 1 Mg Tablet) 1 mg PO TID ARNIE Last Admin: 12/23/24 20:33 Dose: Not Given Magnesium Hydroxide (Milk Of Magnesia 30 Ml Oral.Susp) 30 ml PO DAILY PRN PRN Reason: Constipation Multivitamins/Vitamin C (Multivitamin Tablet) 1 tab PO DAILY [facility] Last Admin: 12/23/24 08:24 Dose: 1 tab Naloxone HCl (Naloxone Hcl 0.4 Mg/Ml Vial) 0.04 mg IVPUSH Q5M PRN PRN Reason: Excessive sedation or RR < 8 Home Medications ?Medication ?Instructions ?Recorded ?Confirmed ?Last Taken ?Type lamotrigine 25 mg tablet 25 mg PO BID 12/14/24 12/14/24 Unknown History multivitamin with folic acid 400 1 tab PO DAILY 12/14/24 12/14/24 Unknown History mcg tablet (Daily-Luh (with folic acid)) risperidone 1 mg tablet 1 mg PO BID 12/14/24 12/14/24 Unknown History Exam Height,Weight and Vital Signs: Height 6 ft Weight 101.1 kg Last Vital Signs Temp 97.8 F 12/24/24 07:08 Pulse 86 12/24/24 07:08 Resp 15 12/24/24 07:08 BP 125/68 12/24/24 07:08 Pulse Ox 99 12/24/24 07:08 O2 Del Method Room Air 12/24/24 07:08 O2 Flow Rate 2 12/21/24 09:30 Pertinent Lab Results Pertinent Lab Results: Laboratory Tests 12/15/24 07:54 WBC 8.1 RBC 4.02 L Hgb 12.1 L Hct 36.3 L MCV 90.3 MCH 30.1 MCHC 33.3 RDW 12.3 Plt Count 311 D MPV 9.9 Immature Gran % (Auto) 2.2 H Neut % (Auto) 51.5 Lymph % (Auto) 37.2 Clinch % (Auto) 6.3 Eos % (Auto) 2.1 Baso % (Auto) 0.7 Lymph # (Auto) 3.0 Clinch # (Auto) 0.5 Eos # (Auto) 0.2 Baso # (Auto) 0.1 Abs Immat Gran (auto) 0.18 H Absolute Neuts (auto) 4.1 Absolute Nucleated RBC 0.000 Nucleated RBC % (auto) 0.0 Sodium 142 Potassium 4.3 Chloride 106 Carbon Dioxide 28 Anion Gap 12 BUN 11 Creatinine 0.84 Estim Creat Clear Calc 162.9 Estimated GFR > 60 Random Glucose 85 Estimat Average Glucose 82 Hemoglobin A1c % 4.5 Calcium 10.0 Total Bilirubin 0.5 AST 40 H ALT 82 H Alkaline Phosphatase 47 Total Protein 7.1 Albumin 3.8 Triglycerides 30 Cholesterol 114 LDL Cholesterol, Calc 88 HDL Cholesterol 20 L Airway Mallampati Class: III TM Dist: >3cm Neck ROM: Full Loose/Missing/Broken Teeth: No Heart: RRR Lungs: CTA Assessment and Plan Assessment Anesthesia Assessment: Anesthesia Plan Discussed Final Anesthetic Review Family History of Problems with Anesthesia: No History of Problems with Anesthesia: No NPO: Yes ASA Class: II Final Preanesthetic Review: Meds/Allgs Chart Reviewed and Anes Risks/Benef Reviewed Patient Risk: Low Procedure Risk: Intermediate Anesthetic Plan Anesthetic Plan: GA Disposition: Standard PACU
--- NOTE | 2024-12-24 09:46 | HO.PSYCHPN ---
Subjective Subjective Date of Service: 12/24/24 Reason For Visit: catatonia/psychosis/autism Interim History: met with pt; discussed with team; reviewed chart pt denies any psychotic symptoms. He had ECT today and says he's having trouble with recent memories but can not specify further. Family meeting today. Mental Status Exam Mental Status Exam Narrative: Pt is alert and oriented; behavior is cooperative, friendly and calm; without any catatonic symptoms; periodically squints his eyes; patient is not in distress; dressed in hospital attire with unkempt hair but adequate hygiene; mood is described as good and affect congruent; eye contact a little avoidant; Speech is minimal but normal rate, volume and prosody and not pressured; no psychomotor agitation/retardation present; thought process is goal directed, concrete; Thought content is on whatever is at hand, appropriate; no delusional ideations expressed; denies any SI/HI. Denies AVH; not clear if patient appears internally preoccupied Patients insight and judgment seems intact; not sure patient's baseline Diagnostics Vital Signs (24Hr): Vital Signs - 24 hr 12/23/24 10:00 12/23/24 19:50 12/24/24 06:42 Temperature 97.5 F 98.1 F 98.3 F Pulse Rate 84 97 96 Respiratory Rate 16 15 15 Blood Pressure 113/63 120/64 127/68 Pulse Oximetry 99 100 99 Oxygen Delivery Method Room Air 12/24/24 07:08 12/24/24 08:30 12/24/24 08:35 Temperature 97.8 F 97.5 F Pulse Rate 86 81 96 Respiratory Rate 15 18 18 Blood Pressure 125/68 168/89 H 137/86 Pulse Oximetry 99 100 100 Oxygen Delivery Method Room Air Room Air Room Air 12/24/24 08:40 12/24/24 08:45 12/24/24 09:00 Temperature Pulse Rate 96 89 102 H Respiratory Rate 18 18 18 Blood Pressure 139/82 147/76 H 136/77 Pulse Oximetry 100 100 100 Oxygen Delivery Method Room Air Room Air Room Air 12/24/24 09:15 Temperature 97 F Pulse Rate 93 Respiratory Rate 18 Blood Pressure 127/73 Pulse Oximetry 99 Oxygen Delivery Method Room Air BMI result Body Mass Index 30.2 Labs 12/15/24 07:54 12/15/24 07:54 Medications Medications Current Medications Al Hydroxide/Mg Hydroxide (Magnesium Hydrox/Alum Hydrox 30 Ml Oral.Susp) 30 ml PO Q6H PRN PRN Reason: Heartburn/Nausea Lorazepam (Lorazepam 1 Mg Tablet) 1 mg PO TID [facility] Last Admin: 12/23/24 20:33 Dose: Not Given Magnesium Hydroxide (Milk Of Magnesia 30 Ml Oral.Susp) 30 ml PO DAILY PRN PRN Reason: Constipation Multivitamins/Vitamin C (Multivitamin Tablet) 1 tab PO DAILY [facility] Last Admin: 12/23/24 08:24 Dose: 1 tab Allergies Allergies Allergy/AdvReac Type Severity Reaction Status Date / Time No Known Allergies Allergy Verified 11/28/24 13:56 Assessment & Plan Assessment & Plan (1) 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 Pt transferred to medical floor from ICU for continued IV benzodiazepines, IV fluids, TPN. Patient court-ordered treatment including ECT. Once patient received ECT he started coming out of catatonic symptoms Initial Impression: It is difficult to know the etiology of catatonia. People with autism, psychotic disorders, or taking a antipsychotic medications are all at increased risk for catatonia and patient has all 3 risk factors (so it seems). Again from collateral it sounds very possible that catatonic symptoms started in the community in the week prior to this admission. Here at [facility] with IV benzodiazepines,, patient had observed but minimal improvement with IV diazepam; now on IV Ativan with some additional improvement. Discussed case thoroughly with Dr. Lira who agrees that current treatment plan of IV Ativan as both appropriate and necessary treatment to resolve catatonia and prevent malignant catatonia. Director Of Sales And Marketing has discussed the possibility of patient needing ECT treatment if IV benzos do not adequately resolve symptoms; family remains cautious about ECT but seems to understand that this could be necessary. After receiving collateral from patient's mother (see below), it seems that patient was demonstrating significant changes in his behavior, very different from his normal way of functioning and his normal expressions of autism. That said , some other family members perspective is with discrepancy from mother's collateral so it is not totally clear. But per the mother, The behavioral changes described sound like prodrome of schizophrenia. Patient's father also observed patient responding to internal stimuli, also very different from his normal expressions. Director Of Sales And Marketing met with and discussed case with patient's father and then talked with patient's mother who currently lives in [place]. Collateral from patient's mother, Cliff, ([phone]) ASD; IEP, honors classes, working; spelling [employer]; graduated [employer]; -around 22 years old, seemed more reclusive and pt started changing -lost job September 2022; missing days, not focused; got fired at next job for going too slow -a year ago, less ADL's, not showering, less motivation, mom thinking more than just ASD since not like this at all in [place] -Refusing to go to appointments. Got him to ED and psych doctor evaluated but was not able to be Sectioned; mom tried other times to get him to doctor, to hospital, but police felt did not meet criteria to section him... -still minimal ADL's; in Fall 2023 started sleeping outside in the park which again, out of character -Jul 2024 making slow movements, like in slow motion, but able to pull out of it; kept sleeping outside in front of her door, peeing on himself or in bottles. -Episodes of staring off and not responding; intermittently would look agitated -Mom sent him to [place] to be with father -no hx of drug/alcohol use -had gone 36 hours w/out sleep, but not hyperactive, withdrawn and either quiet on laptop or making lots of food but not eating -no seizure hx -no hx of medication Hospital course: Initially patient admitted to [facility] for psychosis; quickly developed severe catatonia, rigidity, not eating or drinking or moving or talking at all. Moved to medical floor and then ICU for IV benzos: 1.Initially Patient was 1st sent from to the medical floor. Due to national shortage of liquid Ativan, He received midazolam 2 mg IV however patient had no response. He was then given diazepam 10 mg IV and within 30 seconds, he relaxed his muscles, folded his arms, turned over on his side and moved his legs, 1st natural movements observed for several days. Director Of Sales And Marketing collaborated with Dr. Lira and after literature review, both agreed that patient required immediate IV diazepam treatment to prevent patient from progressing towards a malignant catatonia; since patient had demonstrated initial response to diazepam he should be continued on diazepam; the literature recommends diazepam IV infusion at 10mg/500ml saline at 1.25mg/hour; diazepam infusion not available per hospital formulary so agreed to diazepam 2.5 mg IV push q.2 hours. 2)Hospitalist team/medical floor nursing staff felt patient should be observed on ICU for this administration and he was transferred to the ICU. In the ICU, Patient treated with IV Diazepam for about 36 hours with limited effect, with rigidity having resolved (and periodically briefly opening his eyes) but other symptoms of catatonia remaining including, not following verbal commands and negativism (resistance of examine his manipulation with equal strength). Team agreed to switch from diazepam to Ativan 2 mg IV q.i.d.. After about 12 hours patient improved some more, responding to noxious stimuli/sternal rub and grimaced and actively pushed examiner's hand away. After about 36 hours give or take, dose increase to Ativan 2 mg IV q4H. Patient able to be transferred back to the medical floor. 3) patient on medical floor receiving Ativan 2 mg IV q4h. He remains in the bed with his eyes closed, not responding to verbal commands but is overall moving all limbs more naturally on his own. Negative his remains. ICU 12/06 Patient remains with same minimal improvement observed when starting diazepam; he is moving on his own a little more naturally though still minimally. Will appeared to be trying to open his eyes sometimes when his name is called. Continues with negativism however otherwise is not rigid. Director Of Sales And Marketing met with patient's father and stepmother Debra. Initially family expressed dissatisfaction with treatment and wanted patient transferred to [facility]. Dr. Jiang reached out to [facility] to discuss case and they declined to take patient at this time, not having a bed available and also not being able to provide ECT should patient require it. Patient's family accepted this. Director Of Sales And Marketing again spent about an hour providing education on catatonia, its causes and its treatments, including ECT; explained ECT procedure as well. Dr. Lira also provided the family with printed out literature regarding these topics, including ECT. After discussion, patient's family seemed to agree with current treatment plan of continuing with benzodiazepines. Since patient had only a minimal response to IV diazepam, decision was made to switch to IV Ativan to see if this would be more effective; also discussed with family who agreed with this plan. Director Of Sales And Marketing again offered to talk with family member who is a neurologist and gave them entry writer's contact information to pass along. 12/07 some change in presentation as patient now responsive to noxious stimuli/chest rub, grimacing and pushing examiner's hand away. Director Of Sales And Marketing and Dr. Lira agree this is improvement and evidence that Ativan is helping (progression: rigidity and no response to noxious stimuli -- progressed to absence of rigidity but still no response to noxious stimuli--progressed to now, pt with active response to noxious stimuli). -Literature reviewed and after team discussion agreed to increase IV Ativan to 2 mg q.4h -brain MRI unremarkable -Discussed with Dr. Jiang who felt patient could be safely transferred back to medical floor out of ICU; family informed Medical floor: 12/08 patient remains catatonic, not opening his eyes, not responding to any verbal interactions; remains with negativism; however is moving increasingly or naturally on his own. Discussed with dr. Ernandez. -continue with Ativan 2 mg q4h for now 12/09 Last night/early AM pt spiked fever 105, tachy, tachypneic. Treated with abx, cooling blanket, rectal acetaminophen; CXR negative. Temp came down and pt only mildly tachy; RR 18. Also...This morning, pt woke up, talked with Dr. Ernandez and asked for a sandwich; a little later with nurse, he knew his name, and that he was at [facility]. Later in day, on approach, pt sleeping, sometimes yawning; did not wake up to speaking his name; entry writer did not do sternal rub -tried to test for rigidity but not able to assess since pt's remains w/ negativism (catatonic symptom of resisting examiner w/ equal force) but pt appears to be moving around easily enough on his own. -did not really at risk for NMS since pt only on Diazepam T:99.4 (on cooling blanket) BP:112/68 O2 96% HR 98 RR: 18 lips appear swollen UA unremarkable CXR unremarkable negative covid/rsv/flu Director Of Sales And Marketing discussed case with Dr. Lira; entry writer Discussed case with Dr. Ernandez regarding blood cultures/LP; at this time Dr. Ernandez would like to continue monitoring but advance to LP if patient does not improve. Hospital ran out of Ativan; will switch back to diazepam Impression: Despite the fact that patient spiked a fever and was tachy and tachypneic, the fact that he woke up, was talking, interacting oriented to self and place was very encouraging. Ativan seems to have been more effective than diazepam and remains preferred, however diazepam has had some positive effect. Patient being worked up for infectious etiology, though he does not appear ill looking. It is possible that fever, increased heart rate respiratory rate was a brief crossing into a malignant catatonia; will continue with current treatment plan; ECT remains consider most effective treatment however need court order 12/11 LP so far mostly negative with a few parameters still pending; Afebrile and vitals WNL Patient remains with eyes closed but is moving his body and head around on his own; sometimes role in his head around and around. Still does not respond to verbal stimuli. Waxy flexibility noted; initially only minimal negativeism however this increased with examiners manipulations. Has not open his eyes or talked since Friday 12/08 (per father patient also talked with his mother on the phone, talked with his grandmother). -discussed with pharmacist and some additional Ativan has been procured though in a very limited supply; will restart Ativan IV -of note diazepam infusion is not possible per pharmacy -would also consider memantine, though must be taken p.o. Impression: Patient has certainly improved with IV benzodiazepines, lorazepam seeming to be the most effective. However he remains with severe catatonia. Although he open his eyes and spoke briefly, he has not done so for 3 days and for the past 3 days he has remained with eyes closed, nonverbal, not responding to verbal cues, not eating, not drinking. Thus far, workup for infection has been unremarkable, with only a few LP labs still pending. Because no infectious process can be identified patient is episode of fever, tachycardia and tachypnea remain concerning for possible brief transitioned into malignant catatonia. Currently patient is afebrile and vitals WNL however the risks increase the longer catatonia persists and ECT remains the most viable treatment option -court scheduled for today 12/12 ECT today. Discussed case in detail with Dr. Lira who agreed with proceeding to ECT for following reasons: 1. He remains with Severe catatonia; he is not eating, drinking, talking or opening his eyes, responding to verbal stimuli or getting out of bed; he cannot communicate or receive information; he continues to need IV fluids, nutrition without which he would go into organ failure and . 2. This past weekend, he became febrile with a temperature spiking to 105 degrees; he was tachycardic to 133, tachypneic to 22 RR? temperature lowered but he remained febrile for the next day...... After thorough workup which included an LP, chest x-ray, UA, RSV/COVID/flu? no infectious process identified, other than possible sinusitis. Was this episode of autonomic dysregulation a brief crossover into malignant catatonia? Concern for patients condition to turn malignant increases the longer catatonia persists. 3. The longer a person remains catatonic the harder it becomes to resolve it. Prolonged catatonia correlates with higher risk of serious medical complications, including ?and include the risks associated with continuous IV, S[place], and being bed bound. A person can rapidly deteriorate despite being on benzodiaepines. 4. Literature recommends a Switch to ECT when: Lorazepam (Ativan) fails after 3?5 days of adequate dosing (e.g., 6?12 mg/day) to prevent poor outcome (Electroconvulsive therapy in catatonic patients: Efficacy and predictors of response (2015)) -Will continue with ECT [facility] Will treat with Diazepam 5mg IV TID to treat for Benzo withdrawal and to treat catatonia; as pt improves, will taper benzo 12/13 Patient open his eyes, started answering questions by nodding his head and remained so throughout the day. Director Of Sales And Marketing explained patient's condition and treatment though doubtful patient understood much of it. Director Of Sales And Marketing gave him 2 doses of IV Ativan 2 mg which seemed to help because Later on entry writer was informed the patient was again talking, eating and drinking. ECT tomorrow but if patient remains much improved, maybe able to return to the psychiatric unit -discussed case with Dr. Serrano and Dr. Lira and will continue benzos both to help make sure catatonia does not return and to avoid benzo withdrawal RETURNED TO PSYCH UNIT M5 (12/14): Patient significantly improved, walking, talking, eating, drinking and moving about. Patient was able to return to the psych floor. Plan is to continue ECT doing better on ativan 1mg tid, on 1:1 eating- some odd behaviors but no longer fully catatonic! 12/16 - dc 1:1, pt requested ensure with meals- maybe be rebound hunger from not eating while catatonic. reports fine no clear report from patient of prior days when he was catatonic- but now sleeping, eating and drinking fluids- denies si/hi/psychosis- refused ativan this am but couldn't say why - When asked about student/work - he says he [place] job in [place]- Case discussed with dr Lira who feels ECT helped- when ativan hadn't now doing well on on current ativan- no longer need for 1:1 12/18 Patient remains significantly improved and perhaps with no residual catatonic symptoms. Patient eating, drinking, talking, walking and interacting appropriately (keeping in mind ASD) Patient does not remember any of the events preceding this admission or during until getting to the psychiatric floor; catatonia and treatment explained to patient and he is amenable to continuing with ECT and benzodiazepines. Patient says he feels back to his regular self in his father was present, says he thinks so too. Patient denies any psychotic symptoms at all Although patient is much improved, he remained significantly vulnerable to return of catatonic symptoms. Discussed with Dr. Lira who agrees to Continue with ECT on 12/19 and 12/21 so as to prevent any return of catatonic symptoms; will continue with Ativan but likely further taper at some point. Will continue to assess. Regarding guardianship, at this time entry writer does not see a need for patient to have a guardian. Currently however patient has no outpatient providers and no where to live; where patient to be discharged now he would likely become quickly impaired 12/19 Patient says he is doing well. He remains feeling like his normal self. Patient continues to deny any AH or paranoid ideations and says he does not remember having any of these before. He says he finds the atmosphere on the unit to be pretty good and has no complaints. Patient asked about ECT, how much more he is going to get and agrees to treatment plan. Discussed post discharge and patient said he liked living in [place] and is considering going back to his mother's there but wonders if staying here might be easier. He said he also is considering going to his aunt's house in [place]. 12/20 Patient remains organized in speech and behavior. Talked about ECT, talked about his goals. Patient said he would like to find working computers, something he has been interested in for years. He has some ambivalence about returning to [place] since he says he and his mom have very different view on things; she very much wanted him to join the [employer] though he did not think it was necessarily a good fit for him. Discussed autism and patient knows that he has had this diagnosis and has worked through it for years. He continues to deny any psychotic symptoms at all. -patient's mother told adoption social worker that after having talked with them on the phone for the past several days she says he sounds like his regular self. 12/21 no change in presentation; no problems with ECT denies any psychiatric symptoms; denies psychotic symptoms, Pt shared ambivalence about returning to live w/ mom in [place]; he agrees that option of staying in senior living here is precarious. Family meeting tuesday -ECT on tuesday and then will re-assess -continue ativan 1 mg TID (to prevent return of symptoms) 12/23 Continue tx 12/24 pt denies any psychotic symptoms. He had ECT today and says he's having trouble with recent memories but can not specify further. Family meeting today. -at this point will hold ECT for Tue; will consider either Tuesday or next week. Pt remains highly vulnerable to re-emergence of catatonic symptoms, however, now complaining of memory issues. Will monitor -if pt were to dc, he would need to remain closely monitored for a few weeks and with access to ECT should catatonic symptoms return Impression: Thankfully catatonic symptoms have fully resolved; will continue with ECT and benzo treatment for now and continually reassess. Regarding recent diagnosis of schizophrenia from other hospitalization and from collateral: Currently patient denies any psychotic symptoms. Patient has autistic spectrum disorder, which some of the symptoms can present similar to being internally preoccupied.... Will continue to monitor. At this time will continue with schizophrenic diagnosis but leave it as provisional... Patient continues to deny symptoms however and presents organized in speech and behavior. It is possible that patient has schizophrenia but is being treated with ECT... Or that he does not have schizophrenia Plan: q5's SECTION 8/8a; court-ordered ECT and medications Continue Ativan 1 mg t.i.d. p.o. for both benzo withdrawal and to avoid any return of catatonic symptoms ECT MWF (Court ordered; pt on Section 8/) ECT #1 on 12/12 ECT #2 on 12/14 ECT #3 on 12/17 ECT #4 on 12/19 ECT #5 on 12/21 ECT #6 on 01/24 Patient educated on: diagnosis and ECT Informed Consent: understands and further education needed Reason for continued inpatient stay Substantial Risk for: rapid decompensation Time Spent With Patient Time: Total time managing care of this patient today ____ minutes.
[2024-12-24] MEDS: Multivitamin TABLET 1 TAB PO (10:02)
[2024-12-24] MEDS: LORazepam 1 MG TABLET PO ×3 (10:03→19:59)
--- NOTE | 2024-12-24 10:17 | HO.ECTPROC ---
ECT Procedure Note Diagnosis/Treatment Date of Service: 12/24/24 Diagnosis: Catatonia Previous ECT Date: 12/21/24 Current Treatment Number: 6 Treatment: Series Interval Clinical Notes: remains much improved from admission. verbal, able to interact appropriately with staff Time: Total time managing care of this patient today __30__ minutes. ECT Settings Device: THYMATRON DGx Electrode Placement: Bifrontal Program/Pulse Width: 0.25 Energy Percent: 40 Seizure Duration By EEG (in seconds): 78 Medications Administration General Anesthetic: Etomidate (16) Muscle Relaxant: Succinylcholine (100) Airway Management Airway Management: Bag Mask Ventilation Treatment Recommendations No Changes Recommended: No change Notes: consider tapering to maintenance ECT/finishing course soon as pt has responded very well. Pt Tolerated Procedure w/o Issue: Yes
[2024-12-25] MEDS: LORazepam 1 MG TABLET PO ×3 (08:25→20:54)
[2024-12-25] MEDS: Multivitamin TABLET 1 TAB PO (08:25)
[2024-12-25 10:00] VITALS: BP 127/68; PULSE 88; RESP 16; TEMP 36.7; O2SAT 99
--- NOTE | 2024-12-25 10:04 | HO.PSYCHPN ---
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 Patient shared about psychotic symptoms: In [place] (in the weeks before coming to [facility]): pt acknowledged that he was having hallucinations prior to admission. For several weeks, He says in [place] i was experiencing hallucinations...i heard voices telling me to bring material...[with his mind] and i felt like i had to bring them this material or i would be in big trouble... (not sure who they were). He felt like he had no choice in the matter.. Pt was sometimes sleeping on a park bench and thinks the voices were related to this [facility] (on way to [facility]): When he got to [facility], he had hallucinations it was pretty intense there...the voices were definetly stronger saying this is not reality...the reality you think you know is not real..it's all fake... and voices were putting more pressure on me to do what they wanted...they wanted me to do various stretches...and according to them i was failing and they threatened to disban me.... At this point there was more than one voice talking together about him. He found it very distracting and says this was why he was walking around in circles. Shared that AH told him everyone was a dog which he thought was true... (no VH). That's what i was being told...i was made up of multiple dogs... The voices told him to spin in a salamatof to leave the realm... which is what police found him doing while in [facility]. At snf in [facility]: delusions/AH persisted; he had belief that he was a child being disciplined by others...AH telling him to beat himself up for discipline; he hit himself a few times but then realized not to... Looking back now, he knows it was his mind not playing tricks on him. Pt says since being here at the hospital he has not had any psychotic symptoms. He says this was hard to talk about but is comfortable talking about it now. Mental Status Exam Mental Status Exam Narrative: Pt is alert and oriented; behavior is cooperative, friendly and calm; without any catatonic symptoms; periodically squints his eyes; patient is not in distress; dressed in hospital attire with unkempt hair but adequate hygiene; mood is described as good and affect congruent; eye contact a little avoidant; Speech is minimal but normal rate, volume and prosody and not pressured; no psychomotor agitation/retardation present; thought process is goal directed, concrete; Thought content is on past psychotic symptoms, dx, treatment; no delusional ideations expressed; denies any SI/HI. Denies AVH; not clear if patient appears internally preoccupied Patients insight and judgment seems intact and likely at baseline Diagnostics Vital Signs (24Hr): Vital Signs - 24 hr 12/24/24 20:22 Temperature 97.8 F Pulse Rate 100 Respiratory Rate 16 Blood Pressure 133/80 Pulse Oximetry 100 Oxygen Delivery Method Room Air BMI result Body Mass Index 30.2 Labs 12/26/24 13:30 12/15/24 07:54 Medications Medications Current Medications Al Hydroxide/Mg Hydroxide (Magnesium Hydrox/Alum Hydrox 30 Ml Oral.Susp) 30 ml PO Q6H PRN PRN Reason: Heartburn/Nausea Lorazepam (Lorazepam 1 Mg Tablet) 1 mg PO TID [facility] Last Admin: 12/25/24 08:25 Dose: 1 mg Magnesium Hydroxide (Milk Of Magnesia 30 Ml Oral.Susp) 30 ml PO DAILY PRN PRN Reason: Constipation Multivitamins/Vitamin C (Multivitamin Tablet) 1 tab PO DAILY [facility] Last Admin: 12/25/24 08:25 Dose: 1 tab Allergies Allergies Allergy/AdvReac Type Severity Reaction Status Date / Time No Known Allergies Allergy Verified 11/28/24 13:56 Assessment & Plan Assessment & Plan (1) 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 Pt transferred to medical floor from ICU for continued IV benzodiazepines, IV fluids, TPN. Patient court-ordered treatment including ECT. Once patient received ECT he started coming out of catatonic symptoms Initial Impression: It is difficult to know the etiology of catatonia. People with autism, psychotic disorders, or taking a antipsychotic medications are all at increased risk for catatonia and patient has all 3 risk factors (so it seems). Again from collateral it sounds very possible that catatonic symptoms started in the community in the week prior to this admission. Here at [facility] with IV benzodiazepines,, patient had observed but minimal improvement with IV diazepam; now on IV Ativan with some additional improvement. Discussed case thoroughly with Dr. Lira who agrees that current treatment plan of IV Ativan as both appropriate and necessary treatment to resolve catatonia and prevent malignant catatonia. Spike Driver has discussed the possibility of patient needing ECT treatment if IV benzos do not adequately resolve symptoms; family remains cautious about ECT but seems to understand that this could be necessary. After receiving collateral from patient's mother (see below), it seems that patient was demonstrating significant changes in his behavior, very different from his normal way of functioning and his normal expressions of autism. That said , some other family members perspective is with discrepancy from mother's collateral so it is not totally clear. But per the mother, The behavioral changes described sound like prodrome of schizophrenia. Patient's father also observed patient responding to internal stimuli, also very different from his normal expressions. Spike Driver met with and discussed case with patient's father and then talked with patient's mother who currently lives in [place]. Collateral from patient's mother, Cliff, ([phone]) ASD; IEP, honors classes, working; spelling [employer]; graduated [employer]; -around 22 years old, seemed more reclusive and pt started changing -lost job September 2022; missing days, not focused; got fired at next job for going too slow -a year ago, less ADL's, not showering, less motivation, mom thinking more than just ASD since not like this at all in [place] -Refusing to go to appointments. Got him to ED and psych doctor evaluated but was not able to be Sectioned; mom tried other times to get him to doctor, to hospital, but police felt did not meet criteria to section him... -still minimal ADL's; in Fall 2023 started sleeping outside in the park which again, out of character -Jul 2024 making slow movements, like in slow motion, but able to pull out of it; kept sleeping outside in front of her door, peeing on himself or in bottles. -Episodes of staring off and not responding; intermittently would look agitated -Mom sent him to [place] to be with father -no hx of drug/alcohol use -had gone 36 hours w/out sleep, but not hyperactive, withdrawn and either quiet on laptop or making lots of food but not eating -no seizure hx -no hx of medication Hospital course: Initially patient admitted to [facility] for psychosis; quickly developed severe catatonia, rigidity, not eating or drinking or moving or talking at all. Moved to medical floor and then ICU for IV benzos: 1.Initially Patient was 1st sent from to the medical floor. Due to national shortage of liquid Ativan, He received midazolam 2 mg IV however patient had no response. He was then given diazepam 10 mg IV and within 30 seconds, he relaxed his muscles, folded his arms, turned over on his side and moved his legs, 1st natural movements observed for several days. Spike Driver collaborated with Dr. Lira and after literature review, both agreed that patient required immediate IV diazepam treatment to prevent patient from progressing towards a malignant catatonia; since patient had demonstrated initial response to diazepam he should be continued on diazepam; the literature recommends diazepam IV infusion at 10mg/500ml saline at 1.25mg/hour; diazepam infusion not available per hospital formulary so agreed to diazepam 2.5 mg IV push q.2 hours. 2)Hospitalist team/medical floor nursing staff felt patient should be observed on ICU for this administration and he was transferred to the ICU. In the ICU, Patient treated with IV Diazepam for about 36 hours with limited effect, with rigidity having resolved (and periodically briefly opening his eyes) but other symptoms of catatonia remaining including, not following verbal commands and negativism (resistance of examine his manipulation with equal strength). Team agreed to switch from diazepam to Ativan 2 mg IV q.i.d.. After about 12 hours patient improved some more, responding to noxious stimuli/sternal rub and grimaced and actively pushed examiner's hand away. After about 36 hours give or take, dose increase to Ativan 2 mg IV q4H. Patient able to be transferred back to the medical floor. 3) patient on medical floor receiving Ativan 2 mg IV q4h. He remains in the bed with his eyes closed, not responding to verbal commands but is overall moving all limbs more naturally on his own. Negative his remains. ICU 12/06 Patient remains with same minimal improvement observed when starting diazepam; he is moving on his own a little more naturally though still minimally. Will appeared to be trying to open his eyes sometimes when his name is called. Continues with negativism however otherwise is not rigid. Spike Driver met with patient's father and stepmother Debra. Initially family expressed dissatisfaction with treatment and wanted patient transferred to [facility]. Dr. Jiang reached out to [facility] to discuss case and they declined to take patient at this time, not having a bed available and also not being able to provide ECT should patient require it. Patient's family accepted this. Spike Driver again spent about an hour providing education on catatonia, its causes and its treatments, including ECT; explained ECT procedure as well. Dr. Lira also provided the family with printed out literature regarding these topics, including ECT. After discussion, patient's family seemed to agree with current treatment plan of continuing with benzodiazepines. Since patient had only a minimal response to IV diazepam, decision was made to switch to IV Ativan to see if this would be more effective; also discussed with family who agreed with this plan. Spike Driver again offered to talk with family member who is a neurologist and gave them engineering writer's contact information to pass along. 12/07 some change in presentation as patient now responsive to noxious stimuli/chest rub, grimacing and pushing examiner's hand away. Spike Driver and Dr. Lira agree this is improvement and evidence that Ativan is helping (progression: rigidity and no response to noxious stimuli -- progressed to absence of rigidity but still no response to noxious stimuli--progressed to now, pt with active response to noxious stimuli). -Literature reviewed and after team discussion agreed to increase IV Ativan to 2 mg q.4h -brain MRI unremarkable -Discussed with Dr. Jiang who felt patient could be safely transferred back to medical floor out of ICU; family informed Medical floor: 12/08 patient remains catatonic, not opening his eyes, not responding to any verbal interactions; remains with negativism; however is moving increasingly or naturally on his own. Discussed with dr. Ernandez. -continue with Ativan 2 mg q4h for now 12/09 Last night/early AM pt spiked fever 105, tachy, tachypneic. Treated with abx, cooling blanket, rectal acetaminophen; CXR negative. Temp came down and pt only mildly tachy; RR 18. Also...This morning, pt woke up, talked with Dr. Ernandez and asked for a sandwich; a little later with nurse, he knew his name, and that he was at [facility]. Later in day, on approach, pt sleeping, sometimes yawning; did not wake up to speaking his name; engineering writer did not do sternal rub -tried to test for rigidity but not able to assess since pt's remains w/ negativism (catatonic symptom of resisting examiner w/ equal force) but pt appears to be moving around easily enough on his own. -did not really at risk for NMS since pt only on Diazepam T:99.4 (on cooling blanket) BP:112/68 O2 96% HR 98 RR: 18 lips appear swollen UA unremarkable CXR unremarkable negative covid/rsv/flu Spike Driver discussed case with Dr. Lira; engineering writer Discussed case with Dr. Ernandez regarding blood cultures/LP; at this time Dr. Ernandez would like to continue monitoring but advance to LP if patient does not improve. Hospital ran out of Ativan; will switch back to diazepam Impression: Despite the fact that patient spiked a fever and was tachy and tachypneic, the fact that he woke up, was talking, interacting oriented to self and place was very encouraging. Ativan seems to have been more effective than diazepam and remains preferred, however diazepam has had some positive effect. Patient being worked up for infectious etiology, though he does not appear ill looking. It is possible that fever, increased heart rate respiratory rate was a brief crossing into a malignant catatonia; will continue with current treatment plan; ECT remains consider most effective treatment however need court order 12/11 LP so far mostly negative with a few parameters still pending; Afebrile and vitals WNL Patient remains with eyes closed but is moving his body and head around on his own; sometimes role in his head around and around. Still does not respond to verbal stimuli. Waxy flexibility noted; initially only minimal negativeism however this increased with examiners manipulations. Has not open his eyes or talked since Friday 12/08 (per father patient also talked with his mother on the phone, talked with his grandmother). -discussed with pharmacist and some additional Ativan has been procured though in a very limited supply; will restart Ativan IV -of note diazepam infusion is not possible per pharmacy -would also consider memantine, though must be taken p.o. Impression: Patient has certainly improved with IV benzodiazepines, lorazepam seeming to be the most effective. However he remains with severe catatonia. Although he open his eyes and spoke briefly, he has not done so for 3 days and for the past 3 days he has remained with eyes closed, nonverbal, not responding to verbal cues, not eating, not drinking. Thus far, workup for infection has been unremarkable, with only a few LP labs still pending. Because no infectious process can be identified patient is episode of fever, tachycardia and tachypnea remain concerning for possible brief transitioned into malignant catatonia. Currently patient is afebrile and vitals WNL however the risks increase the longer catatonia persists and ECT remains the most viable treatment option -court scheduled for today 12/12 ECT today. Discussed case in detail with Dr. Lira who agreed with proceeding to ECT for following reasons: 1. He remains with Severe catatonia; he is not eating, drinking, talking or opening his eyes, responding to verbal stimuli or getting out of bed; he cannot communicate or receive information; he continues to need IV fluids, nutrition without which he would go into organ failure and . 2. This past weekend, he became febrile with a temperature spiking to 105 degrees; he was tachycardic to 133, tachypneic to 22 RR? temperature lowered but he remained febrile for the next day...... After thorough workup which included an LP, chest x-ray, UA, RSV/COVID/flu? no infectious process identified, other than possible sinusitis. Was this episode of autonomic dysregulation a brief crossover into malignant catatonia? Concern for patients condition to turn malignant increases the longer catatonia persists. 3. The longer a person remains catatonic the harder it becomes to resolve it. Prolonged catatonia correlates with higher risk of serious medical complications, including ?and include the risks associated with continuous IV, S[place], and being bed bound. A person can rapidly deteriorate despite being on benzodiaepines. 4. Literature recommends a Switch to ECT when: Lorazepam (Ativan) fails after 3?5 days of adequate dosing (e.g., 6?12 mg/day) to prevent poor outcome (Electroconvulsive therapy in catatonic patients: Efficacy and predictors of response (2015)) -Will continue with ECT [facility] Will treat with Diazepam 5mg IV TID to treat for Benzo withdrawal and to treat catatonia; as pt improves, will taper benzo 12/13 Patient open his eyes, started answering questions by nodding his head and remained so throughout the day. Spike Driver explained patient's condition and treatment though doubtful patient understood much of it. Spike Driver gave him 2 doses of IV Ativan 2 mg which seemed to help because Later on engineering writer was informed the patient was again talking, eating and drinking. ECT tomorrow but if patient remains much improved, maybe able to return to the psychiatric unit -discussed case with Dr. Serrano and Dr. Lira and will continue benzos both to help make sure catatonia does not return and to avoid benzo withdrawal RETURNED TO PSYCH UNIT M[facility] (12/14): Patient significantly improved, walking, talking, eating, drinking and moving about. Patient was able to return to the psych floor. Plan is to continue ECT doing better on ativan 1mg tid, on 1:1 eating- some odd behaviors but no longer fully catatonic! 12/16 - dc 1:1, pt requested ensure with meals- maybe be rebound hunger from not eating while catatonic. reports fine no clear report from patient of prior days when he was catatonic- but now sleeping, eating and drinking fluids- denies si/hi/psychosis- refused ativan this am but couldn't say why - When asked about student/work - he says he had a job in [employer] Case discussed with dr Lira who feels ECT helped- when ativan hadn't now doing well on on current ativan- no longer need for 1:1 12/18 Patient remains significantly improved and perhaps with no residual catatonic symptoms. Patient eating, drinking, talking, walking and interacting appropriately (keeping in mind ASD) Patient does not remember any of the events preceding this admission or during until getting to the psychiatric floor; catatonia and treatment explained to patient and he is amenable to continuing with ECT and benzodiazepines. Patient says he feels back to his regular self in his father was present, says he thinks so too. Patient denies any psychotic symptoms at all Although patient is much improved, he remained significantly vulnerable to return of catatonic symptoms. Discussed with Dr. Lira who agrees to Continue with ECT on 12/19 and 12/21 so as to prevent any return of catatonic symptoms; will continue with Ativan but likely further taper at some point. Will continue to assess. Regarding guardianship, at this time engineering writer does not see a need for patient to have a guardian. Currently however patient has no outpatient providers and no where to live; where patient to be discharged now he would likely become quickly impaired 12/19 Patient says he is doing well. He remains feeling like his normal self. Patient continues to deny any AH or paranoid ideations and says he does not remember having any of these before. He says he finds the atmosphere on the unit to be pretty good and has no complaints. Patient asked about ECT, how much more he is going to get and agrees to treatment plan. Discussed post discharge and patient said he liked living in [place] and is considering going back to his mother's there but wonders if staying here might be easier. He said he also is considering going to his aunt's house in [place]. 12/20 Patient remains organized in speech and behavior. Talked about ECT, talked about his goals. Patient said he would like to find working computers, something he has been interested in for years. He has some ambivalence about returning to [place] since he says he and his mom have very different view on things; she very much wanted him to join the [employer] though he did not think it was necessarily a good fit for him. Discussed autism and patient knows that he has had this diagnosis and has worked through it for years. He continues to deny any psychotic symptoms at all. -patient's mother told social science analyst that after having talked with them on the phone for the past several days she says he sounds like his regular self. 12/21 no change in presentation; no problems with ECT denies any psychiatric symptoms; denies psychotic symptoms, Pt shared ambivalence about returning to live w/ mom in [place]; he agrees that option of staying in snf here is precarious. Family meeting tuesday -ECT on tuesday and then will re-assess -continue ativan 1 mg TID (to prevent return of symptoms) 12/23 Continue tx 12/24 pt denies any psychotic symptoms. He had ECT today and says he's having trouble with recent memories but can not specify further. Family meeting today. -at this point will hold ECT for Tue; will consider either Tuesday or next week. Pt remains highly vulnerable to re-emergence of catatonic symptoms, however, now complaining of memory issues. 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 Patient shared about psychotic symptoms: [place] (in the weeks before coming to [facility]): pt acknowledged that he was having hallucinations prior to admission. For several weeks, He says in [place] i was experiencing hallucinations...i heard voices telling me to bring material...[with his mind] and i felt like i had to bring them this material or i would be in big trouble... (not sure who they were). He felt like he had no choice in the matter.. Pt was sometimes sleeping on a park bench and thinks the voices were related to this [facility] (on way to [facility]): When he got to [facility], he had hallucinations it was pretty intense there...the voices were definetly stronger saying this is not reality...the reality you think you know is not real..it's all fake... and voices were putting more pressure on me to do what they wanted...they wanted me to do various stretches...and according to them i was failing and they threatened to disban me.... At this point there was more than one voice talking together about him. He found it very distracting and says this was why he was walking around in circles. Shared that AH told him everyone was a dog which he thought was true... (no VH). That's what i was being told...i was made up of multiple dogs... The voices told him to spin in a salamatof to leave the realm... which is what police found him doing while in [facility]. At snf in [facility]: delusions/AH persisted; he had belief that he was a child being disciplined by others...AH telling him to beat himself up for discipline; he hit himself a few times but then realized not to... Looking back now, he knows it was his mind not playing tricks on him. Pt says since being here at the hospital he has not had any psychotic symptoms. He says this was hard to talk about but is comfortable talking about it now. -reviewed diagnosis and treatment; discussed antipsychotic medications including Clozaril and discussed risks/side effects including but not limited to agranulocytosis patient understands and agrees to start Clozaril Impression: Thankfully catatonic symptoms have fully resolved; will continue with ECT and benzo treatment for now and continually reassess. Regarding recent diagnosis of schizophrenia from other hospitalization and from collateral: Currently patient denies any psychotic symptoms. Patient has autistic spectrum disorder, which some of the symptoms can present similar to being internally preoccupied.... Will continue to monitor. At this time will continue with schizophrenic diagnosis but leave it as provisional... Patient continues to deny symptoms however and presents organized in speech and behavior. With collateral and patient opening up about symptoms, patient meets criteria for schizophrenia Plan: q5's SECTION ; court-ordered ECT and medications Will start Clozapine 25mg qhs Continue Ativan 1 mg t.i.d. p.o. for both benzo withdrawal and to avoid any return of catatonic symptoms ECT MWF (Court ordered; pt on Section ) ECT #1 on 12/12 ECT #2 on 12/14 ECT #3 on 12/17 ECT #4 on 12/19 ECT #5 on 12/21 ECT #6 on 01/24 Patient educated on: diagnosis, medication risk/benefits and ECT Informed Consent: understands Reason for continued inpatient stay Substantial Risk for: stable for discharge and rapid decompensation Time Spent With Patient Time: Total time managing care of this patient today ____ minutes.
[2024-12-25 22:00] VITALS: BP 145/79; PULSE 113; RESP 16; TEMP 36.4; O2SAT 96
[2024-12-26 08:29] VITALS: BP 110/59; PULSE 80; RESP 16; TEMP 36.2; O2SAT 97
[2024-12-26] MEDS: Multivitamin TABLET 1 TAB PO (08:55)
[2024-12-26] MEDS: LORazepam 1 MG TABLET PO ×3 (08:55→20:40)
--- NOTE | 2024-12-26 10:07 | P.PNPSI_ITS ---
Subjective Subjective Date of Service: 12/26/24 Reason For Visit: catatonia/psychosis/autism Interim History: Met with patient; discussed with team Patient reports that he is good and just thinking about catatonia; patient was amazed at how long it lasted. Discussed again about recent diagnosis of schizophrenia and treatment and patient remains amenable to starting Clozaril. Mental Status Exam Mental Status Exam Narrative: Pt is alert and oriented; behavior is cooperative, friendly and calm; without any catatonic symptoms; periodically squints his eyes; patient is not in distress; dressed in hospital attire with unkempt hair but adequate hygiene; mood is described as good and affect congruent; eye contact a little avoidant; Speech is minimal but normal rate, volume and prosody and not pressured; no psychomotor agitation/retardation present; thought process is goal directed, concrete; Thought content is on past psychotic symptoms, dx, treatment; no delusional ideations expressed; denies any SI/HI. Denies AVH; not clear if patient appears internally preoccupied Patients insight and judgment seems intact and likely at baseline Diagnostics Vital Signs (24Hr): Vital Signs - 24 hr 12/25/24 22:00 12/26/24 08:29 Temperature 97.6 F 97.2 F Pulse Rate 113 H 80 Respiratory Rate 16 16 Blood Pressure 145/79 H 110/59 L Pulse Oximetry 96 97 Oxygen Delivery Method Room Air Room Air BMI result Body Mass Index 30.2 Labs 12/26/24 13:30 12/15/24 07:54 Medications Medications Current Medications Al Hydroxide/Mg Hydroxide (Magnesium Hydrox/Alum Hydrox 30 Ml Oral.Susp) 30 ml PO Q6H PRN PRN Reason: Heartburn/Nausea Clozapine (Clozapine 25 Mg Tablet) 25 mg PO BEDTIME ARNIE Lorazepam (Lorazepam 1 Mg Tablet) 1 mg PO TID ARNIE Last Admin: 12/26/24 08:55 Dose: 1 mg Magnesium Hydroxide (Milk Of Magnesia 30 Ml Oral.Susp) 30 ml PO DAILY PRN PRN Reason: Constipation Multivitamins/Vitamin C (Multivitamin Tablet) 1 tab PO DAILY ARNIE Last Admin: 12/26/24 08:55 Dose: 1 tab Allergies Allergies Allergy/AdvReac Type Severity Reaction Status Date / Time No Known Allergies Allergy Verified 11/28/24 13:56 Assessment & Plan Assessment & Plan (1) 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 Pt transferred to medical floor from ICU for continued IV benzodiazepines, IV fluids, TPN. Patient court-ordered treatment including ECT. Once patient received ECT he started coming out of catatonic symptoms Initial Impression: It is difficult to know the etiology of catatonia. People with autism, psychotic disorders, or taking a antipsychotic medications are all at increased risk for catatonia and patient has all 3 risk factors (so it seems). Again from collateral it sounds very possible that catatonic symptoms started in the community in the week prior to this admission. Here at [facility] with IV benzodiazepines,, patient had observed but minimal improvement with IV diazepam; now on IV Ativan with some additional improvement. Discussed case thoroughly with Dr. Lira who agrees that current treatment plan of IV Ativan as both appropriate and necessary treatment to resolve catatonia and prevent malignant catatonia. Neurology Stroke Physician has discussed the possibility of patient needing ECT treatment if IV benzos do not adequately resolve symptoms; family remains cautious about ECT but seems to understand that this could be necessary. After receiving collateral from patient's mother (see below), it seems that patient was demonstrating significant changes in his behavior, very different from his normal way of functioning and his normal expressions of autism. That said , some other family members perspective is with discrepancy from mother's collateral so it is not totally clear. But per the mother, The behavioral changes described sound like prodrome of schizophrenia. Patient's father also observed patient responding to internal stimuli, also very different from his normal expressions. Neurology Stroke Physician met with and discussed case with patient's father and then talked with patient's mother who currently lives in [place]. Collateral from patient's mother, Cliff, ([phone]) ASD; IEP, honors classes, working; spelling [employer]; graduated [employer]; -around 22 years old, seemed more reclusive and pt started changing -lost job September 2022; missing days, not focused; got fired at next job for going too slow -a year ago, less ADL's, not showering, less motivation, mom thinking more than just ASD since not like this at all in [place] -Refusing to go to appointments. Got him to ED and psych doctor evaluated but was not able to be Sectioned; mom tried other times to get him to doctor, to hospital, but police felt did not meet criteria to section him... -still minimal ADL's; in Fall 2023 started sleeping outside in the park which again, out of character -Jul 2024 making slow movements, like in slow motion, but able to pull out of it; kept sleeping outside in front of her door, peeing on himself or in bottles. -Episodes of staring off and not responding; intermittently would look agitated -Mom sent him to [place] to be with father -no hx of drug/alcohol use -had gone 36 hours w/out sleep, but not hyperactive, withdrawn and either quiet on laptop or making lots of food but not eating -no seizure hx -no hx of medication Hospital course: Initially patient admitted to M3 for psychosis; quickly developed severe catatonia, rigidity, not eating or drinking or moving or talking at all. Moved to medical floor and then ICU for IV benzos: 1.Initially Patient was 1st sent from to the medical floor. Due to national shortage of liquid Ativan, He received midazolam 2 mg IV however patient had no response. He was then given diazepam 10 mg IV and within 30 seconds, he relaxed his muscles, folded his arms, turned over on his side and moved his legs, 1st natural movements observed for several days. Neurology Stroke Physician collaborated with Dr. Lira and after literature review, both agreed that patient required immediate IV diazepam treatment to prevent patient from progressing towards a malignant catatonia; since patient had demonstrated initial response to diazepam he should be continued on diazepam; the literature recommends diazepam IV infusion at 10mg/500ml saline at 1.25mg/hour; diazepam infusion not available per hospital formulary so agreed to diazepam 2.5 mg IV push q.2 hours. 2)Hospitalist team/medical floor nursing staff felt patient should be observed on ICU for this administration and he was transferred to the ICU. In the ICU, Patient treated with IV Diazepam for about 36 hours with limited effect, with rigidity having resolved (and periodically briefly opening his eyes) but other symptoms of catatonia remaining including, not following verbal commands and negativism (resistance of examine his manipulation with equal strength). Team agreed to switch from diazepam to Ativan 2 mg IV q.i.d.. After about 12 hours patient improved some more, responding to noxious stimuli/sternal rub and grimaced and actively pushed examiner's hand away. After about 36 hours give or take, dose increase to Ativan 2 mg IV q4H. Patient able to be transferred back to the medical floor. 3) patient on medical floor receiving Ativan 2 mg IV q4h. He remains in the bed with his eyes closed, not responding to verbal commands but is overall moving all limbs more naturally on his own. Negative his remains. ICU 12/06 Patient remains with same minimal improvement observed when starting diazepam; he is moving on his own a little more naturally though still minimally. Will appeared to be trying to open his eyes sometimes when his name is called. Continues with negativism however otherwise is not rigid. Neurology Stroke Physician met with patient's father and stepmother Debra. Initially family expressed dissatisfaction with treatment and wanted patient transferred to [facility]. Dr. Jiang reached out to [facility] to discuss case and they declined to take patient at this time, not having a bed available and also not being able to provide ECT should patient require it. Patient's family accepted this. Neurology Stroke Physician again spent about an hour providing education on catatonia, its causes and its treatments, including ECT; explained ECT procedure as well. Dr. Lira also provided the family with printed out literature regarding these topics, including ECT. After discussion, patient's family seemed to agree with current treatment plan of continuing with benzodiazepines. Since patient had only a minimal response to IV diazepam, decision was made to switch to IV Ativan to see if this would be more effective; also discussed with family who agreed with this plan. Neurology Stroke Physician again offered to talk with family member who is a neurologist and gave them service writer advisor's contact information to pass along. 12/07 some change in presentation as patient now responsive to noxious stimuli/chest rub, grimacing and pushing examiner's hand away. Neurology Stroke Physician and Dr. Lira agree this is improvement and evidence that Ativan is helping (progression: rigidity and no response to noxious stimuli -- progressed to absence of rigidity but still no response to noxious stimuli--progressed to now, pt with active response to noxious stimuli). -Literature reviewed and after team discussion agreed to increase IV Ativan to 2 mg q.4h -brain MRI unremarkable -Discussed with Dr. Jiang who felt patient could be safely transferred back to medical floor out of ICU; family informed Medical floor: 12/08 patient remains catatonic, not opening his eyes, not responding to any verbal interactions; remains with negativism; however is moving increasingly or naturally on his own. Discussed with dr. Ernandez. -continue with Ativan 2 mg q4h for now 12/09 Last night/early AM pt spiked fever 105, tachy, tachypneic. Treated with abx, cooling blanket, rectal acetaminophen; CXR negative. Temp came down and pt only mildly tachy; RR 18. Also...This morning, pt woke up, talked with Dr. Ernandez and asked for a sandwich; a little later with nurse, he knew his name, and that he was at [facility] [place] [facility]. Later in day, on approach, pt sleeping, sometimes yawning; did not wake up to speaking his name; service writer advisor did not do sternal rub -tried to test for rigidity but not able to assess since pt's remains w/ negativism (catatonic symptom of resisting examiner w/ equal force) but pt appears to be moving around easily enough on his own. -did not really at risk for NMS since pt only on Diazepam T:99.4 (on cooling blanket) BP:112/68 O2 96% HR 98 RR: 18 lips appear swollen UA unremarkable CXR unremarkable negative covid/rsv/flu Neurology Stroke Physician discussed case with Dr. Lira; service writer advisor Discussed case with Dr. Ernandez regarding blood cultures/LP; at this time Dr. Ernandez would like to continue monitoring but advance to LP if patient does not improve. Hospital ran out of Ativan; will switch back to diazepam Impression: Despite the fact that patient spiked a fever and was tachy and tachypneic, the fact that he woke up, was talking, interacting oriented to self and place was very encouraging. Ativan seems to have been more effective than diazepam and remains preferred, however diazepam has had some positive effect. Patient being worked up for infectious etiology, though he does not appear ill looking. It is possible that fever, increased heart rate respiratory rate was a brief crossing into a malignant catatonia; will continue with current treatment plan; ECT remains consider most effective treatment however need court order 12/11 LP so far mostly negative with a few parameters still pending; Afebrile and vitals WNL Patient remains with eyes closed but is moving his body and head around on his own; sometimes role in his head around and around. Still does not respond to verbal stimuli. Waxy flexibility noted; initially only minimal negativeism however this increased with examiners manipulations. Has not open his eyes or talked since Friday 12/08 (per father patient also talked with his mother on the phone, talked with his grandmother). -discussed with pharmacist and some additional Ativan has been procured though in a very limited supply; will restart Ativan IV -of note diazepam infusion is not possible per pharmacy -would also consider memantine, though must be taken p.o. Impression: Patient has certainly improved with IV benzodiazepines, lorazepam seeming to be the most effective. However he remains with severe catatonia. Although he open his eyes and spoke briefly, he has not done so for 3 days and for the past 3 days he has remained with eyes closed, nonverbal, not responding to verbal cues, not eating, not drinking. Thus far, workup for infection has been unremarkable, with only a few LP labs still pending. Because no infectious process can be identified patient is episode of fever, tachycardia and tachypnea remain concerning for possible brief transitioned into malignant catatonia. Currently patient is afebrile and vitals WNL however the risks increase the longer catatonia persists and ECT remains the most viable treatment option -court scheduled for today 12/12 ECT today. Discussed case in detail with Dr. Lira who agreed with proceeding to ECT for following reasons: 1. He remains with Severe catatonia; he is not eating, drinking, talking or opening his eyes, responding to verbal stimuli or getting out of bed; he cannot communicate or receive information; he continues to need IV fluids, nutrition without which he would go into organ failure and . 2. This past weekend, he became febrile with a temperature spiking to 105 degrees; he was tachycardic to 133, tachypneic to 22 RR? temperature lowered but he remained febrile for the next day...... After thorough workup which included an LP, chest x-ray, UA, RSV/COVID/flu? no infectious process identified, other than possible sinusitis. Was this episode of autonomic dysregulation a brief crossover into malignant catatonia? Concern for patients condition to turn malignant increases the longer catatonia persists. 3. The longer a person remains catatonic the harder it becomes to resolve it. Prolonged catatonia correlates with higher risk of serious medical complications, including ?and include the risks associated with continuous IV, Sultana, and being bed bound. A person can rapidly deteriorate despite being on benzodiaepines. 4. Literature recommends a Switch to ECT when: Lorazepam (Ativan) fails after 3?5 days of adequate dosing (e.g., 6?12 mg/day) to prevent poor outcome (Electroconvulsive therapy in catatonic patients: Efficacy and predictors of response (2015)) -Will continue with ECT WMF Will treat with Diazepam 5mg IV TID to treat for Benzo withdrawal and to treat catatonia; as pt improves, will taper benzo 12/13 Patient open his eyes, started answering questions by nodding his head and remained so throughout the day. Neurology Stroke Physician explained patient's condition and treatment though doubtful patient understood much of it. Neurology Stroke Physician gave him 2 doses of IV Ativan 2 mg which seemed to help because Later on service writer advisor was informed the patient was again talking, eating and drinking. ECT tomorrow but if patient remains much improved, maybe able to return to the psychiatric unit -discussed case with Dr. Serrano and Dr. Lira and will continue benzos both to help make sure catatonia does not return and to avoid benzo withdrawal RETURNED TO PSYCH UNIT M5 (12/14): Patient significantly improved, walking, talking, eating, drinking and moving about. Patient was able to return to the psych floor. Plan is to continue ECT doing better on ativan 1mg tid, on 1:1 eating- some odd behaviors but no longer fully catatonic! 12/16 - dc 1:1, pt requested ensure with meals- maybe be rebound hunger from not eating while catatonic. 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 Patient eating, drinking, talking, walking and interacting appropriately (keeping in mind ASD) Patient does not remember any of the events preceding this admission or during until getting to the psychiatric floor; catatonia and treatment explained to patient and he is amenable to continuing with ECT and benzodiazepines. Patient says he feels back to his regular self in his father was present, says he thinks so too. Patient denies any psychotic symptoms at all Although patient is much improved, he remained significantly vulnerable to return of catatonic symptoms. Discussed with Dr. Lira who agrees to Continue with ECT on 12/19 and 12/21 so as to prevent any return of catatonic symptoms; will continue with Ativan but likely further taper at some point. Will continue to assess. Regarding guardianship, at this time service writer advisor does not see a need for patient to have a guardian. Currently however patient has no outpatient providers and no where to live; where patient to be discharged now he would likely become quickly impaired 12/19 Patient says he is doing well. He remains feeling like his normal self. Patient continues to deny any AH or paranoid ideations and says he does not remember having any of these before. He says he finds the atmosphere on the unit to be pretty good and has no complaints. Patient asked about ECT, how much more he is going to get and agrees to treatment plan. Discussed post discharge and patient said he liked living in [place] and is considering going back to his mother's there but wonders if staying here might be easier. He said he also is considering going to his aunt's house in [place]. 12/20 Patient remains organized in speech and behavior. Talked about ECT, talked about his goals. Patient said he would like to find working computers, something he has been interested in for years. He has some ambivalence about returning to [place] since he says he and his mom have very different view on things; she very much wanted him to join the [employer] though he did not think it was necessarily a good fit for him. Discussed autism and patient knows that he has had this diagnosis and has worked through it for years. He continues to deny any psychotic symptoms at all. -patient's mother told social insurance adviser that after having talked with them on the phone for the past several days she says he sounds like his regular self. 12/21 no change in presentation; no problems with ECT denies any psychiatric symptoms; denies psychotic symptoms, Pt shared ambivalence about returning to live w/ mom in [place]; he agrees that option of staying in snf here is precarious. Family meeting tuesday -ECT on tuesday and then will re-assess -continue ativan 1 mg TID (to prevent return of symptoms) 12/23 Continue tx 12/24 pt denies any psychotic symptoms. He had ECT today and says he's having trouble with recent memories but can not specify further. Family meeting today. -at this point will hold ECT for Tue; will consider either Tuesday or next week. Pt remains highly vulnerable to re-emergence of catatonic symptoms, however, now complaining of memory issues. 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 Patient shared about psychotic symptoms: In [place] (in the weeks before coming to [facility]): pt acknowledged that he was having hallucinations prior to admission. For several weeks, He says in [place] i was experiencing hallucinations...i heard voices telling me to bring material...[with his mind] and i felt like i had to bring them this material or i would be in big trouble... (not sure who they were). He felt like he had no choice in the matter.. Pt was sometimes sleeping on a park bench and thinks the voices were related to this [facility] (on way to [facility]): When he got to [facility], he had hallucinations it was pretty intense there...the voices were definetly stronger saying this is not reality...the reality you think you know is not real..it's all fake... and voices were putting more pressure on me to do what they wanted...they wanted me to do various stretches...and according to them i was failing and they threatened to disban me.... At this point there was more than one voice talking together about him. He found it very distracting and says this was why he was walking around in circles. Shared that AH told him everyone was a dog which he thought was true... (no VH). That's what i was being told...i was made up of multiple dogs... The voices told him to spin in a rosebud to leave the realm... which is what police found him doing while in [facility]. At snf in [facility]: delusions/AH persisted; he had belief that he was a child being disciplined by others...AH telling him to beat himself up for discipline; he hit himself a few times but then realized not to... Looking back now, he knows it was his mind not playing tricks on him. Pt says since being here at the hospital he has not had any psychotic symptoms. He says this was hard to talk about but is comfortable talking about it now. -reviewed diagnosis and treatment; discussed antipsychotic medications including Clozaril and discussed risks/side effects including but not limited to agranulocytosis patient understands and agrees to start Clozaril 12/26 Patient reports that he is good and just thinking about catatonia; patient was amazed at how long it lasted. Discussed again about recent diagnosis of schizophrenia and treatment and patient remains amenable to starting Clozaril. Impression: Thankfully catatonic symptoms have fully resolved; will continue with ECT and benzo treatment for now and continually reassess. Regarding recent diagnosis of schizophrenia from other hospitalization and from collateral: Currently patient denies any psychotic symptoms. Patient has autistic spectrum disorder, which some of the symptoms can present similar to being internally preoccupied.... Will continue to monitor. At this time will continue with schizophrenic diagnosis but leave it as provisional... Patient continues to deny symptoms however and presents organized in speech and behavior. With collateral and patient opening up about symptoms, patient meets criteria for schizophrenia Plan: q5's SECTION 8/8a; court-ordered ECT and medications Start Clozapine 25mg qhs (reviewed risks/side effects which patient understands and agrees to; Clozaril chosen since not only is at the least likely to cause catatonia but is sometimes treatment for catatonia) Continue Ativan 1 mg t.i.d. p.o. for both benzo withdrawal and to avoid any return of catatonic symptoms ECT MWF (Court ordered; pt on Section 8/8a) ECT #1 on 12/12 ECT #2 on 12/14 ECT #3 on 12/17 ECT #4 on 12/19 ECT #5 on 12/21 ECT #6 on 01/24 Patient educated on: diagnosis and medication risk/benefits Informed Consent: understands Reason for continued inpatient stay Substantial Risk for: stable for discharge Time Spent With Patient Time: Total time managing care of this patient today ____ minutes.
[2024-12-26 13:40] LABS: Basophils Absolute Auto 0.1 X10*3/uL (0.0-0.2); Basophils Percent Auto 1.6 % (0-2); Eosinophils Absolute Auto 0.1 X10*3/uL (0.0-0.4); Eosinophils Percent Auto 2.7 % (0-4); Hematocrit 38.9 % (42.0-52.0); Hemoglobin 12.6 g/dl (14.0-18.0); Imm Gran Abs Auto 0.04 X10*3/uL (0.00-0.03); Imm Gran Pct Auto 0.9 % (0.0-0.4); Lymphocytes Absolute Auto 2.5 X10*3/uL (1.2-4.9); Lymphocytes Percent Auto 55.1 % (20-40); MANUAL DIFF FLAG NO; Mean Corpuscular HGB Conc 32.4 g/dl (31.0-36.0); Mean Corpuscular Hemoglobin 29.6 pg (27.0-33.0); Mean Corpuscular Volume 91.3 fL (80.0-98.0); Mean Platelet Volume 9.5 fL (9.4-12.4); Monocytes Absolute Auto 0.3 X10*3/uL (0.1-1.2); Monocytes Percent Auto 6.2 % (2-11); Neutrophils Absolute Auto 1.5 x10*3/uL (2.0-8.3); Neutrophils Percent Auto 33.5 % (45-73); Platelet Count 399 X10*3/uL (160-400); Red Blood Count 4.26 X10*6/uL (4.60-5.80); Red Cell Distribution Width 13.3 % (11.0-16.0); White Blood Count 4.5 X10*3/uL (4.8-10.8)
[2024-12-26 20:00] VITALS: BP 129/74; PULSE 88; TEMP 37.3; O2SAT 98
[2024-12-26] MEDS: cloZAPine 25 MG TABLET PO (20:40)
[2024-12-26 21:37] VITALS: BP 129/75; PULSE 88; TEMP 37.2; O2SAT 98
[2024-12-27] MEDS: LORazepam 1 MG TABLET PO ×3 (08:53→20:18)
[2024-12-27] MEDS: Multivitamin TABLET 1 TAB PO (08:53)
[2024-12-27 10:00] VITALS: BP 118/71; PULSE 94; TEMP 36.6; O2SAT 99
[2024-12-27 10:20] VITALS: BMI 30.6
--- NOTE | 2024-12-27 18:17 | HO.PSYCHPN ---
Subjective Subjective Date of Service: 12/27/24 Reason For Visit: catatonia/psychosis/autism Interim History: Met with patient; discussed with team same presentation; denies psych symptoms; denies psychosis; agrees to ECT next tuesday Mental Status Exam Mental Status Exam Narrative: Pt is alert and oriented; behavior is cooperative, friendly and calm; without any catatonic symptoms; periodically squints his eyes; patient is not in distress; dressed in hospital attire with unkempt hair but adequate hygiene; mood is described as good and affect congruent; eye contact a little avoidant; Speech is minimal but normal rate, volume and prosody and not pressured; no psychomotor agitation/retardation present; thought process is goal directed, concrete; Thought content is on past psychotic symptoms, dx, treatment; no delusional ideations expressed; denies any SI/HI. Denies AVH; not clear if patient appears internally preoccupied Patients insight and judgment seems intact and likely at baseline Diagnostics Vital Signs (24Hr): Vital Signs - 24 hr 12/26/24 20:00 12/26/24 21:37 12/27/24 10:00 Temperature 99.1 F 99 F 98 F Pulse Rate 88 88 94 Blood Pressure 129/74 129/75 118/71 Pulse Oximetry 98 98 99 Oxygen Delivery Method Room Air Room Air Room Air BMI result Body Mass Index 30.6 Labs 12/26/24 13:30 12/15/24 07:54 Labs: Laboratory Results - last 48 hr 12/26/24 13:30 WBC 4.5 L RBC 4.26 L Hgb 12.6 L Hct 38.9 L MCV 91.3 MCH 29.6 MCHC 32.4 RDW 13.3 Plt Count 399 D MPV 9.5 Immature Gran % (Auto) 0.9 H Neut % (Auto) 33.5 L Lymph % (Auto) 55.1 H [place] % (Auto) 6.2 Eos % (Auto) 2.7 Baso % (Auto) 1.6 Lymph # (Auto) 2.5 [place] # (Auto) 0.3 Eos # (Auto) 0.1 Baso # (Auto) 0.1 Abs Immat Gran (auto) 0.04 H Absolute Neuts (auto) 1.5 L Absolute Nucleated RBC 0.000 Nucleated RBC % (auto) 0.0 Medications Medications Current Medications Al Hydroxide/Mg Hydroxide (Magnesium Hydrox/Alum Hydrox 30 Ml Oral.Susp) 30 ml PO Q6H PRN PRN Reason: Heartburn/Nausea Clozapine (Clozapine 25 Mg Tablet) 25 mg PO BEDTIME [facility] Last Admin: 12/26/24 20:40 Dose: 25 mg Lorazepam (Lorazepam 1 Mg Tablet) 1 mg PO TID [facility] Last Admin: 12/27/24 15:10 Dose: 1 mg Magnesium Hydroxide (Milk Of Magnesia 30 Ml Oral.Susp) 30 ml PO DAILY PRN PRN Reason: Constipation Multivitamins/Vitamin C (Multivitamin Tablet) 1 tab PO DAILY [facility] Last Admin: 12/27/24 08:53 Dose: 1 tab Allergies Allergies Allergy/AdvReac Type Severity Reaction Status Date / Time No Known Allergies Allergy Verified 11/28/24 13:56 Assessment & Plan Assessment & Plan (1) 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 Pt transferred to medical floor from ICU for continued IV benzodiazepines, IV fluids, TPN. Patient court-ordered treatment including ECT. Once patient received ECT he started coming out of catatonic symptoms Initial Impression: It is difficult to know the etiology of catatonia. People with autism, psychotic disorders, or taking a antipsychotic medications are all at increased risk for catatonia and patient has all 3 risk factors (so it seems). Again from collateral it sounds very possible that catatonic symptoms started in the community in the week prior to this admission. Here at [facility] with IV benzodiazepines,, patient had observed but minimal improvement with IV diazepam; now on IV Ativan with some additional improvement. Discussed case thoroughly with Dr. Lira who agrees that current treatment plan of IV Ativan as both appropriate and necessary treatment to resolve catatonia and prevent malignant catatonia. [employer] Kil[employer] Supervisor has discussed the possibility of patient needing ECT treatment if IV benzos do not adequately resolve symptoms; family remains cautious about ECT but seems to understand that this could be necessary. After receiving collateral from patient's mother (see below), it seems that patient was demonstrating significant changes in his behavior, very different from his normal way of functioning and his normal expressions of autism. That said , some other family members perspective is with discrepancy from mother's collateral so it is not totally clear. But per the mother, The behavioral changes described sound like prodrome of schizophrenia. Patient's father also observed patient responding to internal stimuli, also very different from his normal expressions. [employer] Supervisor met with and discussed case with patient's father and then talked with patient's mother who currently lives in [place]. Collateral from patient's mother, Cliff, ([phone]) ASD; IEP, honors classes, working; spelling [employer]; graduated [employer]; -around 22 years old, seemed more reclusive and pt started changing -lost job September 2022; missing days, not focused; got fired at next job for going too slow -a year ago, less ADL's, not showering, less motivation, mom thinking more than just ASD since not like this at all in [place] -Refusing to go to appointments. Got him to ED and psych doctor evaluated but was not able to be Sectioned; mom tried other times to get him to doctor, to hospital, but police felt did not meet criteria to section him... -still minimal ADL's; in Fall 2023 started sleeping outside in the park which again, out of character -Jul 2024 making slow movements, like in slow motion, but able to pull out of it; kept sleeping outside in front of her door, peeing on himself or in bottles. -Episodes of staring off and not responding; intermittently would look agitated -Mom sent him to [place] to be with father -no hx of drug/alcohol use -had gone 36 hours w/out sleep, but not hyperactive, withdrawn and either quiet on laptop or making lots of food but not eating -no seizure hx -no hx of medication Hospital course: Initially patient admitted to M3 for psychosis; quickly developed severe catatonia, rigidity, not eating or drinking or moving or talking at all. Moved to medical floor and then ICU for IV benzos: 1.Initially Patient was 1st sent from M3 to the medical floor. Due to national shortage of liquid Ativan, He received midazolam 2 mg IV however patient had no response. He was then given diazepam 10 mg IV and within 30 seconds, he relaxed his muscles, folded his arms, turned over on his side and moved his legs, 1st natural movements observed for several days. [employer] Supervisor collaborated with Dr. Lira and after literature review, both agreed that patient required immediate IV diazepam treatment to prevent patient from progressing towards a malignant catatonia; since patient had demonstrated initial response to diazepam he should be continued on diazepam; the literature recommends diazepam IV infusion at 10mg/500ml saline at 1.25mg/hour; diazepam infusion not available per hospital formulary so agreed to diazepam 2.5 mg IV push q.2 hours. 2)Hospitalist team/medical floor nursing staff felt patient should be observed on ICU for this administration and he was transferred to the ICU. In the ICU, Patient treated with IV Diazepam for about 36 hours with limited effect, with rigidity having resolved (and periodically briefly opening his eyes) but other symptoms of catatonia remaining including, not following verbal commands and negativism (resistance of examine his manipulation with equal strength). Team agreed to switch from diazepam to Ativan 2 mg IV q.i.d.. After about 12 hours patient improved some more, responding to noxious stimuli/sternal rub and grimaced and actively pushed examiner's hand away. After about 36 hours give or take, dose increase to Ativan 2 mg IV q4H. Patient able to be transferred back to the medical floor. 3) patient on medical floor receiving Ativan 2 mg IV q4h. He remains in the bed with his eyes closed, not responding to verbal commands but is overall moving all limbs more naturally on his own. Negative his remains. ICU 12/06 Patient remains with same minimal improvement observed when starting diazepam; he is moving on his own a little more naturally though still minimally. Will appeared to be trying to open his eyes sometimes when his name is called. Continues with negativism however otherwise is not rigid. [employer] Supervisor met with patient's father and stepmother eDbra. Initially family expressed dissatisfaction with treatment and wanted patient transferred to [facility]. Dr. Jiang reached out to [facility] to discuss case and they declined to take patient at this time, not having a bed available and also not being able to provide ECT should patient require it. Patient's family accepted this. Beehive Kiln Supervisor again spent about an hour providing education on catatonia, its causes and its treatments, including ECT; explained ECT procedure as well. Dr. Lira also provided the family with printed out literature regarding these topics, including ECT. After discussion, patient's family seemed to agree with current treatment plan of continuing with benzodiazepines. Since patient had only a minimal response to IV diazepam, decision was made to switch to IV Ativan to see if this would be more effective; also discussed with family who agreed with this plan. [employer] Supervisor again offered to talk with family member who is a neurologist and gave them policy writer's contact information to pass along. 12/07 some change in presentation as patient now responsive to noxious stimuli/chest rub, grimacing and pushing examiner's hand away. Beehive Kiln Supervisor and Dr. Lira agree this is improvement and evidence that Ativan is helping (progression: rigidity and no response to noxious stimuli -- progressed to absence of rigidity but still no response to noxious stimuli--progressed to now, pt with active response to noxious stimuli). -Literature reviewed and after team discussion agreed to increase IV Ativan to 2 mg q.4h -brain MRI unremarkable -Discussed with Dr. Jiang who felt patient could be safely transferred back to medical floor out of ICU; family informed Medical floor: 12/08 patient remains catatonic, not opening his eyes, not responding to any verbal interactions; remains with negativism; however is moving increasingly or naturally on his own. Discussed with dr. Ernandez. -continue with Ativan 2 mg q4h for now 12/09 Last night/early AM pt spiked fever 105, tachy, tachypneic. Treated with abx, cooling blanket, rectal acetaminophen; CXR negative. Temp came down and pt only mildly tachy; RR 18. Also...This morning, pt woke up, talked with Dr. Ernandez and asked for a sandwich; a little later with nurse, he knew his name, and that he was at [facility]. Later in day, on approach, pt sleeping, sometimes yawning; did not wake up to speaking his name; policy writer did not do sternal rub -tried to test for rigidity but not able to assess since pt's remains w/ negativism (catatonic symptom of resisting examiner w/ equal force) but pt appears to be moving around easily enough on his own. -did not really at risk for NMS since pt only on Diazepam T:99.4 (on cooling blanket) BP:112/68 O2 96% HR 98 RR: 18 lips appear swollen UA unremarkable CXR unremarkable negative covid/rsv/flu [employer] Supervisor discussed case with Dr. Lira; policy writer Discussed case with Dr. Ernandez regarding blood cultures/LP; at this time Dr. Ernandez would like to continue monitoring but advance to LP if patient does not improve. Hospital ran out of Ativan; will switch back to diazepam Impression: Despite the fact that patient spiked a fever and was tachy and tachypneic, the fact that he woke up, was talking, interacting oriented to self and place was very encouraging. Ativan seems to have been more effective than diazepam and remains preferred, however diazepam has had some positive effect. Patient being worked up for infectious etiology, though he does not appear ill looking. It is possible that fever, increased heart rate respiratory rate was a brief crossing into a malignant catatonia; will continue with current treatment plan; ECT remains consider most effective treatment however need court order 12/11 LP so far mostly negative with a few parameters still pending; Afebrile and vitals WNL Patient remains with eyes closed but is moving his body and head around on his own; sometimes role in his head around and around. Still does not respond to verbal stimuli. Waxy flexibility noted; initially only minimal negativeism however this increased with examiners manipulations. Has not open his eyes or talked since Friday 12/08 (per father patient also talked with his mother on the phone, talked with his grandmother). -discussed with pharmacist and some additional Ativan has been procured though in a very limited supply; will restart Ativan IV -of note diazepam infusion is not possible per pharmacy -would also consider memantine, though must be taken p.o. Impression: Patient has certainly improved with IV benzodiazepines, lorazepam seeming to be the most effective. However he remains with severe catatonia. Although he open his eyes and spoke briefly, he has not done so for 3 days and for the past 3 days he has remained with eyes closed, nonverbal, not responding to verbal cues, not eating, not drinking. Thus far, workup for infection has been unremarkable, with only a few LP labs still pending. Because no infectious process can be identified patient is episode of fever, tachycardia and tachypnea remain concerning for possible brief transitioned into malignant catatonia. Currently patient is afebrile and vitals WNL however the risks increase the longer catatonia persists and ECT remains the most viable treatment option -court scheduled for today 12/12 ECT today. Discussed case in detail with Dr. Lira who agreed with proceeding to ECT for following reasons: 1. He remains with Severe catatonia; he is not eating, drinking, talking or opening his eyes, responding to verbal stimuli or getting out of bed; he cannot communicate or receive information; he continues to need IV fluids, nutrition without which he would go into organ failure and . 2. This past weekend, he became febrile with a temperature spiking to 105 degrees; he was tachycardic to 133, tachypneic to 22 RR? temperature lowered but he remained febrile for the next day...... After thorough workup which included an LP, chest x-ray, UA, RSV/COVID/flu? no infectious process identified, other than possible sinusitis. Was this episode of autonomic dysregulation a brief crossover into malignant catatonia? Concern for patients condition to turn malignant increases the longer catatonia persists. 3. The longer a person remains catatonic the harder it becomes to resolve it. Prolonged catatonia correlates with higher risk of serious medical complications, including ?and include the risks associated with continuous IV, [place], and being bed bound. A person can rapidly deteriorate despite being on benzodiaepines. 4. Literature recommends a Switch to ECT when: Lorazepam (Ativan) fails after 3?5 days of adequate dosing (e.g., 6?12 mg/day) to prevent poor outcome (Electroconvulsive therapy in catatonic patients: Efficacy and predictors of response (2015)) -Will continue with ECT WMF Will treat with Diazepam 5mg IV TID to treat for Benzo withdrawal and to treat catatonia; as pt improves, will taper benzo 12/13 Patient open his eyes, started answering questions by nodding his head and remained so throughout the day. Beehive Kiln Supervisor explained patient's condition and treatment though doubtful patient understood much of it. Beehive Kiln Supervisor gave him 2 doses of IV Ativan 2 mg which seemed to help because Later on policy writer was informed the patient was again talking, eating and drinking. ECT tomorrow but if patient remains much improved, maybe able to return to the psychiatric unit -discussed case with Dr. Serrano and Dr. Lira and will continue benzos both to help make sure catatonia does not return and to avoid benzo withdrawal RETURNED TO PSYCH UNIT M5 (12/14): Patient significantly improved, walking, talking, eating, drinking and moving about. Patient was able to return to the psych floor. Plan is to continue ECT doing better on ativan 1mg tid, on 1:1 eating- some odd behaviors but no longer fully catatonic! 12/16 - dc 1:1, pt requested ensure with meals- maybe be rebound hunger from not eating while catatonic. reports fine no clear report from patient of prior days when he was catatonic- but now sleeping, eating and drinking fluids- denies si/hi/psychosis- refused ativan this am but couldn't say why - When asked about student/work - he says he had a job in [employer]- Case discussed with dr Lira who feels ECT helped- when ativan hadn't now doing well on on current ativan- no longer need for 1:1 12/18 Patient remains significantly improved and perhaps with no residual catatonic symptoms. Patient eating, drinking, talking, walking and interacting appropriately (keeping in mind ASD) Patient does not remember any of the events preceding this admission or during until getting to the psychiatric floor; catatonia and treatment explained to patient and he is amenable to continuing with ECT and benzodiazepines. Patient says he feels back to his regular self in his father was present, says he thinks so too. Patient denies any psychotic symptoms at all Although patient is much improved, he remained significantly vulnerable to return of catatonic symptoms. Discussed with Dr. Lira who agrees to Continue with ECT on 12/19 and 12/21 so as to prevent any return of catatonic symptoms; will continue with Ativan but likely further taper at some point. Will continue to assess. Regarding guardianship, at this time policy writer does not see a need for patient to have a guardian. Currently however patient has no outpatient providers and no where to live; where patient to be discharged now he would likely become quickly impaired 12/19 Patient says he is doing well. He remains feeling like his normal self. Patient continues to deny any AH or paranoid ideations and says he does not remember having any of these before. He says he finds the atmosphere on the unit to be pretty good and has no complaints. Patient asked about ECT, how much more he is going to get and agrees to treatment plan. Discussed post discharge and patient said he liked living in [place] and is considering going back to his mother's there but wonders if staying here might be easier. He said he also is considering going to his aunt's house in [place]. 12/20 Patient remains organized in speech and behavior. Talked about ECT, talked about his goals. Patient said he would like to find working computers, something he has been interested in for years. He has some ambivalence about returning to [place] since he says he and his mom have very different view on things; she very much wanted him to join the [employer] though he did not think it was necessarily a good fit for him. Discussed autism and patient knows that he has had this diagnosis and has worked through it for years. He continues to deny any psychotic symptoms at all. -patient's mother told case management social worker that after having talked with them on the phone for the past several days she says he sounds like his regular self. 12/21 no change in presentation; no problems with ECT denies any psychiatric symptoms; denies psychotic symptoms, Pt shared ambivalence about returning to live w/ mom in [place]; he agrees that option of staying in [place] here is precarious. Family meeting tuesday -ECT on tuesday and then will re-assess -continue ativan 1 mg TID (to prevent return of symptoms) 12/23 Continue tx 12/24 pt denies any psychotic symptoms. He had ECT today and says he's having trouble with recent memories but can not specify further. Family meeting today. -at this point will hold ECT for Tue; will consider either Tuesday or next week. Pt remains highly vulnerable to re-emergence of catatonic symptoms, however, now complaining of memory issues. 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 Patient shared about psychotic symptoms: In [place] (in the weeks before coming to [facility]): pt acknowledged that he was having hallucinations prior to admission. For several weeks, He says in [place] i was experiencing hallucinations...i heard voices telling me to bring material...[with his mind] and i felt like i had to bring them this material or i would be in big trouble... (not sure who they were). He felt like he had no choice in the matter.. Pt was sometimes sleeping on a park bench and thinks the voices were related to this [facility] (on way to [facility]): When he got to [facility], he had hallucinations it was pretty intense there...the voices were definetly stronger saying this is not reality...the reality you think you know is not real..it's all fake... and voices were putting more pressure on me to do what they wanted...they wanted me to do various stretches...and according to them i was failing and they threatened to disban me.... At this point there was more than one voice talking together about him. He found it very distracting and says this was why he was walking around in circles. Shared that AH told him everyone was a dog which he thought was true... (no VH). That's what i was being told...i was made up of multiple dogs... The voices told him to spin in a [place] to leave the realm... which is what police found him doing while in [facility]. At prison in [facility]: delusions/AH persisted; he had belief that he was a child being disciplined by others...AH telling him to beat himself up for discipline; he hit himself a few times but then realized not to... Looking back now, he knows it was his mind not playing tricks on him. Pt says since being here at the hospital he has not had any psychotic symptoms. He says this was hard to talk about but is comfortable talking about it now. -reviewed diagnosis and treatment; discussed antipsychotic medications including Clozaril and discussed risks/side effects including but not limited to agranulocytosis patient understands and agrees to start Clozaril 12/26 Patient reports that he is good and just thinking about catatonia; patient was amazed at how long it lasted. Discussed again about recent diagnosis of schizophrenia and treatment and patient remains amenable to starting Clozaril. 12/28 change to ECT weekly; pt agrees to increase clozapine Impression: Thankfully catatonic symptoms have fully resolved; will continue with ECT and benzo treatment for now and continually reassess. Regarding recent diagnosis of schizophrenia from other hospitalization and from collateral: Currently patient denies any psychotic symptoms. Patient has autistic spectrum disorder, which some of the symptoms can present similar to being internally preoccupied.... Will continue to monitor. At this time will continue with schizophrenic diagnosis but leave it as provisional... Patient continues to deny symptoms however and presents organized in speech and behavior. With collateral and patient opening up about symptoms, patient meets criteria for schizophrenia Plan: q5's SECTION 8/8a; court-ordered ECT and medications Increased to Clozapine 50mg qhs (reviewed risks/side effects which patient understands and agrees to; Clozaril chosen since not only is at the least likely to cause catatonia but is sometimes treatment for catatonia) Continue Ativan 1 mg t.i.d. p.o. for both benzo withdrawal and to avoid any return of catatonic symptoms ECT MWF (Court ordered; pt on Section 8/8a) ECT #1 on 12/12 ECT #2 on 12/14 ECT #3 on 12/17 ECT #4 on 12/19 ECT #5 on 12/21 ECT #6 on 01/24 Patient educated on: diagnosis, medication risk/benefits and ECT Informed Consent: understands Reason for continued inpatient stay Substantial Risk for: rapid decompensation Time Spent With Patient Time: Total time managing care of this patient today ____ minutes.
[2024-12-27] MEDS: cloZAPine 25 MG TABLET PO (20:18)
[2024-12-27 21:11] VITALS: BP 132/72; PULSE 111; TEMP 36.8; O2SAT 98
[2024-12-28] MEDS: Multivitamin TABLET 1 TAB PO (08:44)
[2024-12-28] MEDS: LORazepam 1 MG TABLET PO ×3 (08:44→21:11)
[2024-12-28 20:14] VITALS: BP 109/74; PULSE 106; TEMP 37.6; O2SAT 97
[2024-12-28] MEDS: cloZAPine 25 MG TABLET 50 MG PO (21:11)
[2024-12-29] MEDS: LORazepam 1 MG TABLET PO ×3 (08:18→20:20)
[2024-12-29] MEDS: Multivitamin TABLET 1 TAB PO (08:18)
[2024-12-29 09:39] VITALS: BP 109/67; PULSE 119; TEMP 36.8; O2SAT 99
--- NOTE | 2024-12-29 09:52 | P.PNPSI_ITS ---
Subjective Subjective Date of Service: 12/28/24 Reason For Visit: catatonia/psychosis/autism Interim History: late entry note for patient seen on 12/28/24; discussed with team Patient reports that he is good denies any psychotic symptoms. Discussed ECT and he is amenable to continuing Tuesday Mental Status Exam Mental Status Exam Narrative: Pt is alert and oriented; behavior is cooperative, friendly and calm; without any catatonic symptoms; periodically squints his eyes; patient is not in distress; dressed in hospital attire with unkempt hair but adequate hygiene; mood is described as good and affect congruent; eye contact a little avoidant; Speech is minimal but normal rate, volume and prosody and not pressured; no psychomotor agitation/retardation present; thought process is goal directed, concrete; Thought content is on past psychotic symptoms, dx, treatment; no delusional ideations expressed; denies any SI/HI. Denies AVH; not clear if patient appears internally preoccupied Patients insight and judgment seems intact and likely at baseline Diagnostics Vital Signs (24Hr): Vital Signs - 24 hr 12/28/24 20:14 12/29/24 09:39 Temperature 99.6 F 98.2 F Pulse Rate 106 H 119 H Blood Pressure 109/74 109/67 Pulse Oximetry 97 99 Oxygen Delivery Method Room Air Room Air BMI result Body Mass Index 30.6 Labs 12/26/24 13:30 12/15/24 07:54 Medications Medications Current Medications Al Hydroxide/Mg Hydroxide (Magnesium Hydrox/Alum Hydrox 30 Ml Oral.Susp) 30 ml PO Q6H PRN PRN Reason: Heartburn/Nausea Clozapine (Clozapine 25 Mg Tablet) 50 mg PO BEDTIME [facility] Last Admin: 12/28/24 21:11 Dose: 50 mg Lorazepam (Lorazepam 1 Mg Tablet) 1 mg PO TID [facility] Last Admin: 12/29/24 08:18 Dose: 1 mg Magnesium Hydroxide (Milk Of Magnesia 30 Ml Oral.Susp) 30 ml PO DAILY PRN PRN Reason: Constipation Multivitamins/Vitamin C (Multivitamin Tablet) 1 tab PO DAILY [facility] Last Admin: 12/29/24 08:18 Dose: 1 tab Allergies Allergies Allergy/AdvReac Type Severity Reaction Status Date / Time No Known Allergies Allergy Verified 11/28/24 13:56 Assessment & Plan Assessment & Plan (1) 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 Pt transferred to medical floor from ICU for continued IV benzodiazepines, IV fluids, TPN. Patient court-ordered treatment including ECT. Once patient received ECT he started coming out of catatonic symptoms Initial Impression: It is difficult to know the etiology of catatonia. People with autism, psychotic disorders, or taking a antipsychotic medications are all at increased risk for catatonia and patient has all 3 risk factors (so it seems). Again from collateral it sounds very possible that catatonic symptoms started in the community in the week prior to this admission. Here at [facility] with IV benzodiazepines,, patient had observed but minimal improvement with IV diazepam; now on IV Ativan with some additional improvement. Discussed case thoroughly with Dr. Lira who agrees that current treatment plan of IV Ativan as both appropriate and necessary treatment to resolve catatonia and prevent malignant catatonia. Electrical Sign Servicer has discussed the possibility of patient needing ECT treatment if IV benzos do not adequately resolve symptoms; family remains cautious about ECT but seems to understand that this could be necessary. After receiving collateral from patient's mother (see below), it seems that patient was demonstrating significant changes in his behavior, very different from his normal way of functioning and his normal expressions of autism. That said , some other family members perspective is with discrepancy from mother's collateral so it is not totally clear. But per the mother, The behavioral changes described sound like prodrome of schizophrenia. Patient's father also observed patient responding to internal stimuli, also very different from his normal expressions. Electrical Sign Servicer met with and discussed case with patient's father and then talked with patient's mother who currently lives in [place]. Collateral from patient's mother, Cliff, ([phone]) ASD; IEP, honors classes, working; spelling [employer]; graduated [employer]; -around 22 years old, seemed more reclusive and pt started changing -lost job September 2022; missing days, not focused; got fired at next job for going too slow -a year ago, less ADL's, not showering, less motivation, mom thinking more than just ASD since not like this at all in [place] -Refusing to go to appointments. Got him to ED and psych doctor evaluated but was not able to be Sectioned; mom tried other times to get him to doctor, to hospital, but police felt did not meet criteria to section him... -still minimal ADL's; in Fall 2023 started sleeping outside in the park which again, out of character -Jul 2024 making slow movements, like in slow motion, but able to pull out of it; kept sleeping outside in front of her door, peeing on himself or in bottles. -Episodes of staring off and not responding; intermittently would look agitated -Mom sent him to [place] to be with father -no hx of drug/alcohol use -had gone 36 hours w/out sleep, but not hyperactive, withdrawn and either quiet on laptop or making lots of food but not eating -no seizure hx -no hx of medication Hospital course: Initially patient admitted to for psychosis; quickly developed severe catatonia, rigidity, not eating or drinking or moving or talking at all. Moved to medical floor and then ICU for IV benzos: 1.Initially Patient was 1st sent from to the medical floor. Due to national shortage of liquid Ativan, He received midazolam 2 mg IV however patient had no response. He was then given diazepam 10 mg IV and within 30 seconds, he relaxed his muscles, folded his arms, turned over on his side and moved his legs, 1st natural movements observed for several days. Electrical Sign Servicer collaborated with Dr. Lira and after literature review, both agreed that patient required immediate IV diazepam treatment to prevent patient from progressing towards a malignant catatonia; since patient had demonstrated initial response to diazepam he should be continued on diazepam; the literature recommends diazepam IV infusion at 10mg/500ml saline at 1.25mg/hour; diazepam infusion not available per hospital formulary so agreed to diazepam 2.5 mg IV push q.2 hours. 2)Hospitalist team/medical floor nursing staff felt patient should be observed on ICU for this administration and he was transferred to the ICU. In the ICU, Patient treated with IV Diazepam for about 36 hours with limited effect, with rigidity having resolved (and periodically briefly opening his eyes) but other symptoms of catatonia remaining including, not following verbal commands and negativism (resistance of examine his manipulation with equal strength). Team agreed to switch from diazepam to Ativan 2 mg IV q.i.d.. After about 12 hours patient improved some more, responding to noxious stimuli/sternal rub and grimaced and actively pushed examiner's hand away. After about 36 hours give or take, dose increase to Ativan 2 mg IV q4H. Patient able to be transferred back to the medical floor. 3) patient on medical floor receiving Ativan 2 mg IV q4h. He remains in the bed with his eyes closed, not responding to verbal commands but is overall moving all limbs more naturally on his own. Negative his remains. ICU 12/06 Patient remains with same minimal improvement observed when starting diazepam; he is moving on his own a little more naturally though still minimally. Will appeared to be trying to open his eyes sometimes when his name is called. Continues with negativism however otherwise is not rigid. Electrical Sign Servicer met with patient's father and stepmother Debra. Initially family expressed dissatisfaction with treatment and wanted patient transferred to [facility]. Dr. Jiang reached out to [facility] to discuss case and they declined to take patient at this time, not having a bed available and also not being able to provide ECT should patient require it. Patient's family accepted this. Electrical Sign Servicer again spent about an hour providing education on catatonia, its causes and its treatments, including ECT; explained ECT procedure as well. Dr. Lira also provided the family with printed out literature regarding these topics, including ECT. After discussion, patient's family seemed to agree with current treatment plan of continuing with benzodiazepines. Since patient had only a minimal response to IV diazepam, decision was made to switch to IV Ativan to see if this would be more effective; also discussed with family who agreed with this plan. Electrical Sign Servicer again offered to talk with family member who is a neurologist and gave them newswriter's contact information to pass along. 12/07 some change in presentation as patient now responsive to noxious stimuli/chest rub, grimacing and pushing examiner's hand away. Electrical Sign Servicer and Dr. Lira agree this is improvement and evidence that Ativan is helping (progression: rigidity and no response to noxious stimuli -- progressed to absence of rigidity but still no response to noxious stimuli--progressed to now, pt with active response to noxious stimuli). -Literature reviewed and after team discussion agreed to increase IV Ativan to 2 mg q.4h -brain MRI unremarkable -Discussed with Dr. Jiang who felt patient could be safely transferred back to medical floor out of ICU; family informed Medical floor: 12/08 patient remains catatonic, not opening his eyes, not responding to any verbal interactions; remains with negativism; however is moving increasingly or naturally on his own. Discussed with dr. Ernandez. -continue with Ativan 2 mg q4h for now 12/09 Last night/early AM pt spiked fever 105, tachy, tachypneic. Treated with abx, cooling blanket, rectal acetaminophen; CXR negative. Temp came down and pt only mildly tachy; RR 18. Also...This morning, pt woke up, talked with Dr. Ernandez and asked for a sandwich; a little later with nurse, he knew his name, and that he was at [facility]. Later in day, on approach, pt sleeping, sometimes yawning; did not wake up to speaking his name; newswriter did not do sternal rub -tried to test for rigidity but not able to assess since pt's remains w/ negativism (catatonic symptom of resisting examiner w/ equal force) but pt appears to be moving around easily enough on his own. -did not really at risk for NMS since pt only on Diazepam T:99.4 (on cooling blanket) BP:112/68 O2 96% HR 98 RR: 18 lips appear swollen UA unremarkable CXR unremarkable negative covid/rsv/flu Electrical Sign Servicer discussed case with Dr. Lira; newswriter Discussed case with Dr. Ernandez regarding blood cultures/LP; at this time Dr. Ernandez would like to continue monitoring but advance to LP if patient does not improve. Hospital ran out of Ativan; will switch back to diazepam Impression: Despite the fact that patient spiked a fever and was tachy and tachypneic, the fact that he woke up, was talking, interacting oriented to self and place was very encouraging. Ativan seems to have been more effective than diazepam and remains preferred, however diazepam has had some positive effect. Patient being worked up for infectious etiology, though he does not appear ill looking. It is possible that fever, increased heart rate respiratory rate was a brief crossing into a malignant catatonia; will continue with current treatment plan; ECT remains consider most effective treatment however need court order 12/11 LP so far mostly negative with a few parameters still pending; Afebrile and vitals WNL Patient remains with eyes closed but is moving his body and head around on his own; sometimes role in his head around and around. Still does not respond to verbal stimuli. Waxy flexibility noted; initially only minimal negativeism however this increased with examiners manipulations. Has not open his eyes or talked since Friday 12/08 (per father patient also talked with his mother on the phone, talked with his grandmother). -discussed with pharmacist and some additional Ativan has been procured though in a very limited supply; will restart Ativan IV -of note diazepam infusion is not possible per pharmacy -would also consider memantine, though must be taken p.o. Impression: Patient has certainly improved with IV benzodiazepines, lorazepam seeming to be the most effective. However he remains with severe catatonia. Although he open his eyes and spoke briefly, he has not done so for 3 days and for the past 3 days he has remained with eyes closed, nonverbal, not responding to verbal cues, not eating, not drinking. Thus far, workup for infection has been unremarkable, with only a few LP labs still pending. Because no infectious process can be identified patient is episode of fever, tachycardia and tachypnea remain concerning for possible brief transitioned into malignant catatonia. Currently patient is afebrile and vitals WNL however the risks increase the longer catatonia persists and ECT remains the most viable treatment option -court scheduled for today 12/12 ECT today. Discussed case in detail with Dr. Lira who agreed with proceeding to ECT for following reasons: 1. He remains with Severe catatonia; he is not eating, drinking, talking or opening his eyes, responding to verbal stimuli or getting out of bed; he cannot communicate or receive information; he continues to need IV fluids, nutrition without which he would go into organ failure and . 2. This past weekend, he became febrile with a temperature spiking to 105 degrees; he was tachycardic to 133, tachypneic to 22 RR? temperature lowered but he remained febrile for the next day...... After thorough workup which included an LP, chest x-ray, UA, RSV/COVID/flu? no infectious process identified, other than possible sinusitis. Was this episode of autonomic dysregulation a brief crossover into malignant catatonia? Concern for patients condition to turn malignant increases the longer catatonia persists. 3. The longer a person remains catatonic the harder it becomes to resolve it. Prolonged catatonia correlates with higher risk of serious medical complications, including ?and include the risks associated with continuous IV, S[place]ana, and being bed bound. A person can rapidly deteriorate despite being on benzodiaepines. 4. Literature recommends a Switch to ECT when: Lorazepam (Ativan) fails after 3?5 days of adequate dosing (e.g., 6?12 mg/day) to prevent poor outcome (Electroconvulsive therapy in catatonic patients: Efficacy and predictors of response (2015)) -Will continue with ECT WMF Will treat with Diazepam 5mg IV TID to treat for Benzo withdrawal and to treat catatonia; as pt improves, will taper benzo 12/13 Patient open his eyes, started answering questions by nodding his head and remained so throughout the day. Electrical Sign Servicer explained patient's condition and treatment though doubtful patient understood much of it. Electrical Sign Servicer gave him 2 doses of IV Ativan 2 mg which seemed to help because Later on newswriter was informed the patient was again talking, eating and drinking. ECT tomorrow but if patient remains much improved, maybe able to return to the psychiatric unit -discussed case with Dr. Serrano and Dr. Lira and will continue benzos both to help make sure catatonia does not return and to avoid benzo withdrawal RETURNED TO PSYCH UNIT M5 (12/14): Patient significantly improved, walking, talking, eating, drinking and moving about. Patient was able to return to the psych floor. Plan is to continue ECT doing better on ativan 1mg tid, on 1:1 eating- some odd behaviors but no longer fully catatonic! 12/16 - dc 1:1, pt requested ensure with meals- maybe be rebound hunger from not eating while catatonic. 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 Patient eating, drinking, talking, walking and interacting appropriately (keeping in mind ASD) Patient does not remember any of the events preceding this admission or during until getting to the psychiatric floor; catatonia and treatment explained to patient and he is amenable to continuing with ECT and benzodiazepines. Patient says he feels back to his regular self in his father was present, says he thinks so too. Patient denies any psychotic symptoms at all Although patient is much improved, he remained significantly vulnerable to return of catatonic symptoms. Discussed with Dr. Lira who agrees to Continue with ECT on 12/19 and 12/21 so as to prevent any return of catatonic symptoms; will continue with Ativan but likely further taper at some point. Will continue to assess. Regarding guardianship, at this time newswriter does not see a need for patient to have a guardian. Currently however patient has no outpatient providers and no where to live; where patient to be discharged now he would likely become quickly impaired 12/19 Patient says he is doing well. He remains feeling like his normal self. Patient continues to deny any AH or paranoid ideations and says he does not remember having any of these before. He says he finds the atmosphere on the unit to be pretty good and has no complaints. Patient asked about ECT, how much more he is going to get and agrees to treatment plan. Discussed post discharge and patient said he liked living in [place] and is considering going back to his mother's there but wonders if staying here might be easier. He said he also is considering going to his aunt's house in [place]. 12/20 Patient remains organized in speech and behavior. Talked about ECT, talked about his goals. Patient said he would like to find working computers, something he has been interested in for years. He has some ambivalence about returning to [place] since he says he and his mom have very different view on things; she very much wanted him to join the [employer] though he did not think it was necessarily a good fit for him. Discussed autism and patient knows that he has had this diagnosis and has worked through it for years. He continues to deny any psychotic symptoms at all. -patient's mother told vp digital marketing social media and crm that after having talked with them on the phone for the past several days she says he sounds like his regular self. 12/21 no change in presentation; no problems with ECT denies any psychiatric symptoms; denies psychotic symptoms, Pt shared ambivalence about returning to live w/ mom in [place]; he agrees that option of staying in long-term here is precarious. Family meeting tuesday -ECT on tuesday and then will re-assess -continue ativan 1 mg TID (to prevent return of symptoms) 12/23 Continue tx 12/24 pt denies any psychotic symptoms. He had ECT today and says he's having trouble with recent memories but can not specify further. Family meeting today. -at this point will hold ECT for Tue; will consider either Tuesday or next week. Pt remains highly vulnerable to re-emergence of catatonic symptoms, however, now complaining of memory issues. 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 Patient shared about psychotic symptoms: In [place] (in the weeks before coming to [facility]): pt acknowledged that he was having hallucinations prior to admission. For several weeks, He says in [place] i was experiencing hallucinations...i heard voices telling me to bring material...[with his mind] and i felt like i had to bring them this material or i would be in big trouble... (not sure who they were). He felt like he had no choice in the matter.. Pt was sometimes sleeping on a park bench and thinks the voices were related to this [facility] (on way to [facility]): When he got to [facility], he had hallucinations it was pretty intense there...the voices were definetly stronger saying this is not reality...the reality you think you know is not real..it's all fake... and voices were putting more pressure on me to do what they wanted...they wanted me to do various stretches...and according to them i was failing and they threatened to disban me.... At this point there was more than one voice talking together about him. He found it very distracting and says this was why he was walking around in circles. Shared that AH told him everyone was a dog which he thought was true... (no VH). That's what i was being told...i was made up of multiple dogs... The voices told him to spin in a redding to leave the realm... which is what police found him doing while in [facility]. At long-term in [facility]: delusions/AH persisted; he had belief that he was a child being disciplined by others...AH telling him to beat himself up for discipline; he hit himself a few times but then realized not to... Looking back now, he knows it was his mind not playing tricks on him. Pt says since being here at the hospital he has not had any psychotic symptoms. He says this was hard to talk about but is comfortable talking about it now. -reviewed diagnosis and treatment; discussed antipsychotic medications including Clozaril and discussed risks/side effects including but not limited to agranulocytosis patient understands and agrees to start Clozaril 12/26 Patient reports that he is good and just thinking about catatonia; patient was amazed at how long it lasted. Discussed again about recent diagnosis of schizophrenia and treatment and patient remains amenable to starting Clozaril. 12/28 change to ECT weekly; pt agrees to increase clozapine 12/28; continue treatment plan; agrees to titrate clozapine; ECT Tuesday; continue Ativan 1 mg t.i.d. Impression: Thankfully catatonic symptoms have fully resolved; will continue with ECT and benzo treatment for now and continually reassess. Regarding recent diagnosis of schizophrenia from other hospitalization and from collateral: Currently patient denies any psychotic symptoms. Patient has autistic spectrum disorder, which some of the symptoms can present similar to being internally preoccupied.... Will continue to monitor. At this time will continue with schizophrenic diagnosis but leave it as provisional... Patient continues to deny symptoms however and presents organized in speech and behavior. With collateral and patient opening up about symptoms, patient meets criteria for schizophrenia Plan: q5's SECTION 8/8a; court-ordered ECT and medications Increased to Clozapine 50mg qhs (reviewed risks/side effects which patient understands and agrees to; Clozaril chosen since not only is at the least likely to cause catatonia but is sometimes treatment for catatonia) Continue Ativan 1 mg t.i.d. p.o. for both benzo withdrawal and to avoid any return of catatonic symptoms ECT MWF (Court ordered; pt on Section 8/8a) ECT #1 on 12/12 ECT #2 on 12/14 ECT #3 on 12/17 ECT #4 on 12/19 ECT #5 on 12/21 ECT #6 on 01/24 ECT 7. Pending for 12/31 Patient educated on: diagnosis, medication risk/benefits and ECT Informed Consent: understands Reason for continued inpatient stay Substantial Risk for: rapid decompensation Time Spent With Patient Time: Total time managing care of this patient today ____ minutes.
--- NOTE | 2024-12-29 09:53 | P.PNPSI_ITS ---
Subjective Subjective Date of Service: 12/29/24 Reason For Visit: catatonia/psychosis/autism Interim History: Met with patient; discussed with team Patient reports that everything is going well; no psychotic symptoms; no medication side effects and agrees to continuing with treatment plan Mental Status Exam Mental Status Exam Narrative: Pt is alert and oriented; behavior is cooperative, friendly and calm; without any catatonic symptoms; periodically squints his eyes; patient is not in distress; dressed in hospital attire with unkempt hair but adequate hygiene; mood is described as ok and affect congruent; eye contact a little avoidant; Speech is minimal but normal rate, volume and prosody and not pressured; no psychomotor agitation/retardation present; thought process is goal directed, concrete; Thought content is on past psychotic symptoms, dx, treatment; no delusional ideations expressed; denies any SI/HI. Denies AVH; not clear if patient appears internally preoccupied Patients insight and judgment seems intact and likely at baseline Diagnostics Vital Signs (24Hr): Vital Signs - 24 hr 12/28/24 20:14 12/29/24 09:39 Temperature 99.6 F 98.2 F Pulse Rate 106 H 119 H Blood Pressure 109/74 109/67 Pulse Oximetry 97 99 Oxygen Delivery Method Room Air Room Air BMI result Body Mass Index 30.6 Labs 12/26/24 13:30 12/15/24 07:54 Medications Medications Current Medications Al Hydroxide/Mg Hydroxide (Magnesium Hydrox/Alum Hydrox 30 Ml Oral.Susp) 30 ml PO Q6H PRN PRN Reason: Heartburn/Nausea Clozapine (Clozapine 25 Mg Tablet) 50 mg PO BEDTIME [facility] Last Admin: 12/28/24 21:11 Dose: 50 mg Lorazepam (Lorazepam 1 Mg Tablet) 1 mg PO TID [facility] Last Admin: 12/29/24 08:18 Dose: 1 mg Magnesium Hydroxide (Milk Of Magnesia 30 Ml Oral.Susp) 30 ml PO DAILY PRN PRN Reason: Constipation Multivitamins/Vitamin C (Multivitamin Tablet) 1 tab PO DAILY [facility] Last Admin: 12/29/24 08:18 Dose: 1 tab Allergies Allergies Allergy/AdvReac Type Severity Reaction Status Date / Time No Known Allergies Allergy Verified 11/28/24 13:56 Assessment & Plan Assessment & Plan (1) 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 Pt transferred to medical floor from ICU for continued IV benzodiazepines, IV fluids, TPN. Patient court-ordered treatment including ECT. Once patient received ECT he started coming out of catatonic symptoms Initial Impression: It is difficult to know the etiology of catatonia. People with autism, psychotic disorders, or taking a antipsychotic medications are all at increased risk for catatonia and patient has all 3 risk factors (so it seems). Again from collateral it sounds very possible that catatonic symptoms started in the community in the week prior to this admission. Here at [facility] with IV benzodiazepines,, patient had observed but minimal improvement with IV diazepam; now on IV Ativan with some additional improvement. Discussed case thoroughly with Dr. Lira who agrees that current treatment plan of IV Ativan as both appropriate and necessary treatment to resolve catatonia and prevent malignant catatonia. Dramatic Teacher has discussed the possibility of patient needing ECT treatment if IV benzos do not adequately resolve symptoms; family remains cautious about ECT but seems to understand that this could be necessary. After receiving collateral from patient's mother (see below), it seems that patient was demonstrating significant changes in his behavior, very different from his normal way of functioning and his normal expressions of autism. That said , some other family members perspective is with discrepancy from mother's collateral so it is not totally clear. But per the mother, The behavioral changes described sound like prodrome of schizophrenia. Patient's father also observed patient responding to internal stimuli, also very different from his normal expressions. Dramatic Teacher met with and discussed case with patient's father and then talked with patient's mother who currently lives in [place]. Collateral from patient's mother, Cliff, ([phone]) ASD; IEP, honors classes, working; spelling [employer]; graduated [employer]; -around 22 years old, seemed more reclusive and pt started changing -lost job September 2022; missing days, not focused; got fired at next job for going too slow -a year ago, less ADL's, not showering, less motivation, mom thinking more than just ASD since not like this at all in [employer] -Refusing to go to appointments. Got him to ED and psych doctor evaluated but was not able to be Sectioned; mom tried other times to get him to doctor, to hospital, but police felt did not meet criteria to section him... -still minimal ADL's; in Fall 2023 started sleeping outside in the park which again, out of character -Jul 2024 making slow movements, like in slow motion, but able to pull out of it; kept sleeping outside in front of her door, peeing on himself or in bottles. -Episodes of staring off and not responding; intermittently would look agitated -Mom sent him to [place] to be with father -no hx of drug/alcohol use -had gone 36 hours w/out sleep, but not hyperactive, withdrawn and either quiet on laptop or making lots of food but not eating -no seizure hx -no hx of medication Hospital course: Initially patient admitted to for psychosis; quickly developed severe catatonia, rigidity, not eating or drinking or moving or talking at all. Moved to medical floor and then ICU for IV benzos: 1.Initially Patient was 1st sent from to the medical floor. Due to national shortage of liquid Ativan, He received midazolam 2 mg IV however patient had no response. He was then given diazepam 10 mg IV and within 30 seconds, he relaxed his muscles, folded his arms, turned over on his side and moved his legs, 1st natural movements observed for several days. Dramatic Teacher collaborated with Dr. Lira and after literature review, both agreed that patient required immediate IV diazepam treatment to prevent patient from progressing towards a malignant catatonia; since patient had demonstrated initial response to diazepam he should be continued on diazepam; the literature recommends diazepam IV infusion at 10mg/500ml saline at 1.25mg/hour; diazepam infusion not available per hospital formulary so agreed to diazepam 2.5 mg IV push q.2 hours. 2)Hospitalist team/medical floor nursing staff felt patient should be observed on ICU for this administration and he was transferred to the ICU. In the ICU, Patient treated with IV Diazepam for about 36 hours with limited effect, with rigidity having resolved (and periodically briefly opening his eyes) but other symptoms of catatonia remaining including, not following verbal commands and negativism (resistance of examine his manipulation with equal strength). Team agreed to switch from diazepam to Ativan 2 mg IV q.i.d.. After about 12 hours patient improved some more, responding to noxious stimuli/sternal rub and grimaced and actively pushed examiner's hand away. After about 36 hours give or take, dose increase to Ativan 2 mg IV q4H. Patient able to be transferred back to the medical floor. 3) patient on medical floor receiving Ativan 2 mg IV q4h. He remains in the bed with his eyes closed, not responding to verbal commands but is overall moving all limbs more naturally on his own. Negative his remains. ICU 12/06 Patient remains with same minimal improvement observed when starting diazepam; he is moving on his own a little more naturally though still minimally. Will appeared to be trying to open his eyes sometimes when his name is called. Continues with negativism however otherwise is not rigid. Dramatic Teacher met with patient's father and stepmother Debra. Initially family expressed dissatisfaction with treatment and wanted patient transferred to [facility]. Dr. Jiang reached out to [facility] to discuss case and they declined to take patient at this time, not having a bed available and also not being able to provide ECT should patient require it. Patient's family accepted this. Dramatic Teacher again spent about an hour providing education on catatonia, its causes and its treatments, including ECT; explained ECT procedure as well. Dr. Lira also provided the family with printed out literature regarding these topics, including ECT. After discussion, patient's family seemed to agree with current treatment plan of continuing with benzodiazepines. Since patient had only a minimal response to IV diazepam, decision was made to switch to IV Ativan to see if this would be more effective; also discussed with family who agreed with this plan. Dramatic Teacher again offered to talk with family member who is a neurologist and gave them conventional mortgage underwriter's contact information to pass along. 12/07 some change in presentation as patient now responsive to noxious stimuli/chest rub, grimacing and pushing examiner's hand away. Dramatic Teacher and Dr. Lira agree this is improvement and evidence that Ativan is helping (progression: rigidity and no response to noxious stimuli -- progressed to absence of rigidity but still no response to noxious stimuli--progressed to now, pt with active response to noxious stimuli). -Literature reviewed and after team discussion agreed to increase IV Ativan to 2 mg q.4h -brain MRI unremarkable -Discussed with Dr. Jiang who felt patient could be safely transferred back to medical floor out of ICU; family informed Medical floor: 12/08 patient remains catatonic, not opening his eyes, not responding to any verbal interactions; remains with negativism; however is moving increasingly or naturally on his own. Discussed with dr. Ernandez. -continue with Ativan 2 mg q4h for now 12/09 Last night/early AM pt spiked fever 105, tachy, tachypneic. Treated with abx, cooling blanket, rectal acetaminophen; CXR negative. Temp came down and pt only mildly tachy; RR 18. Also...This morning, pt woke up, talked with Dr. Ernandez and asked for a sandwich; a little later with nurse, he knew his name, and that he was at [facility]. Later in day, on approach, pt sleeping, sometimes yawning; did not wake up to speaking his name; conventional mortgage underwriter did not do sternal rub -tried to test for rigidity but not able to assess since pt's remains w/ negativism (catatonic symptom of resisting examiner w/ equal force) but pt appears to be moving around easily enough on his own. -did not really at risk for NMS since pt only on Diazepam T:99.4 (on cooling blanket) BP:112/68 O2 96% HR 98 RR: 18 lips appear swollen UA unremarkable CXR unremarkable negative covid/rsv/flu Dramatic Teacher discussed case with Dr. Lira; conventional mortgage underwriter Discussed case with Dr. Ernandez regarding blood cultures/LP; at this time Dr. Ernandez would like to continue monitoring but advance to LP if patient does not improve. Hospital ran out of Ativan; will switch back to diazepam Impression: Despite the fact that patient spiked a fever and was tachy and tachypneic, the fact that he woke up, was talking, interacting oriented to self and place was very encouraging. Ativan seems to have been more effective than diazepam and remains preferred, however diazepam has had some positive effect. Patient being worked up for infectious etiology, though he does not appear ill looking. It is possible that fever, increased heart rate respiratory rate was a brief crossing into a malignant catatonia; will continue with current treatment plan; ECT remains consider most effective treatment however need court order 12/11 LP so far mostly negative with a few parameters still pending; Afebrile and vitals WNL Patient remains with eyes closed but is moving his body and head around on his own; sometimes role in his head around and around. Still does not respond to verbal stimuli. Waxy flexibility noted; initially only minimal negativeism however this increased with examiners manipulations. Has not open his eyes or talked since Friday 12/08 (per father patient also talked with his mother on the phone, talked with his grandmother). -discussed with pharmacist and some additional Ativan has been procured though in a very limited supply; will restart Ativan IV -of note diazepam infusion is not possible per pharmacy -would also consider memantine, though must be taken p.o. Impression: Patient has certainly improved with IV benzodiazepines, lorazepam seeming to be the most effective. However he remains with severe catatonia. Although he open his eyes and spoke briefly, he has not done so for 3 days and for the past 3 days he has remained with eyes closed, nonverbal, not responding to verbal cues, not eating, not drinking. Thus far, workup for infection has been unremarkable, with only a few LP labs still pending. Because no infectious process can be identified patient is episode of fever, tachycardia and tachypnea remain concerning for possible brief transitioned into malignant catatonia. Currently patient is afebrile and vitals WNL however the risks increase the longer catatonia persists and ECT remains the most viable treatment option -court scheduled for today 12/12 ECT today. Discussed case in detail with Dr. Lira who agreed with proceeding to ECT for following reasons: 1. He remains with Severe catatonia; he is not eating, drinking, talking or opening his eyes, responding to verbal stimuli or getting out of bed; he cannot communicate or receive information; he continues to need IV fluids, nutrition without which he would go into organ failure and . 2. This past weekend, he became febrile with a temperature spiking to 105 degrees; he was tachycardic to 133, tachypneic to 22 RR? temperature lowered but he remained febrile for the next day...... After thorough workup which included an LP, chest x-ray, UA, RSV/COVID/flu? no infectious process identified, other than possible sinusitis. Was this episode of autonomic dysregulation a brief crossover into malignant catatonia? Concern for patients condition to turn malignant increases the longer catatonia persists. 3. The longer a person remains catatonic the harder it becomes to resolve it. Prolonged catatonia correlates with higher risk of serious medical complications, including ?and include the risks associated with continuous IV, S[place]ana, and being bed bound. A person can rapidly deteriorate despite being on benzodiaepines. 4. Literature recommends a Switch to ECT when: Lorazepam (Ativan) fails after 3?5 days of adequate dosing (e.g., 6?12 mg/day) to prevent poor outcome (Electroconvulsive therapy in catatonic patients: Efficacy and predictors of response (2015)) -Will continue with ECT WMF Will treat with Diazepam 5mg IV TID to treat for Benzo withdrawal and to treat catatonia; as pt improves, will taper benzo 12/13 Patient open his eyes, started answering questions by nodding his head and remained so throughout the day. Dramatic Teacher explained patient's condition and treatment though doubtful patient understood much of it. Dramatic Teacher gave him 2 doses of IV Ativan 2 mg which seemed to help because Later on conventional mortgage underwriter was informed the patient was again talking, eating and drinking. ECT tomorrow but if patient remains much improved, maybe able to return to the psychiatric unit -discussed case with Dr. Serrano and Dr. Lira and will continue benzos both to help make sure catatonia does not return and to avoid benzo withdrawal RETURNED TO PSYCH UNIT M5 (12/14): Patient significantly improved, walking, talking, eating, drinking and moving about. Patient was able to return to the psych floor. Plan is to continue ECT doing better on ativan 1mg tid, on 1:1 eating- some odd behaviors but no longer fully catatonic! 12/16 - dc 1:1, pt requested ensure with meals- maybe be rebound hunger from not eating while catatonic. 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 Patient eating, drinking, talking, walking and interacting appropriately (keeping in mind ASD) Patient does not remember any of the events preceding this admission or during until getting to the psychiatric floor; catatonia and treatment explained to patient and he is amenable to continuing with ECT and benzodiazepines. Patient says he feels back to his regular self in his father was present, says he thinks so too. Patient denies any psychotic symptoms at all Although patient is much improved, he remained significantly vulnerable to return of catatonic symptoms. Discussed with Dr. Lira who agrees to Continue with ECT on 12/19 and 12/21 so as to prevent any return of catatonic symptoms; will continue with Ativan but likely further taper at some point. Will continue to assess. Regarding guardianship, at this time conventional mortgage underwriter does not see a need for patient to have a guardian. Currently however patient has no outpatient providers and no where to live; where patient to be discharged now he would likely become quickly impaired 12/19 Patient says he is doing well. He remains feeling like his normal self. Patient continues to deny any AH or paranoid ideations and says he does not remember having any of these before. He says he finds the atmosphere on the unit to be pretty good and has no complaints. Patient asked about ECT, how much more he is going to get and agrees to treatment plan. Discussed post discharge and patient said he liked living in [place] and is considering going back to his mother's there but wonders if staying here might be easier. He said he also is considering going to his aunt's house in [place]. 12/20 Patient remains organized in speech and behavior. Talked about ECT, talked about his goals. Patient said he would like to find working computers, something he has been interested in for years. He has some ambivalence about returning to [place] since he says he and his mom have very different view on things; she very much wanted him to join the [employer] though he did not think it was necessarily a good fit for him. Discussed autism and patient knows that he has had this diagnosis and has worked through it for years. He continues to deny any psychotic symptoms at all. -patient's mother told social service liaison that after having talked with them on the phone for the past several days she says he sounds like his regular self. 12/21 no change in presentation; no problems with ECT denies any psychiatric symptoms; denies psychotic symptoms, Pt shared ambivalence about returning to live w/ mom in [place]; he agrees that option of staying in [facility] here is precarious. Family meeting tuesday -ECT on tuesday and then will re-assess -continue ativan 1 mg TID (to prevent return of symptoms) 12/23 Continue tx 12/24 pt denies any psychotic symptoms. He had ECT today and says he's having trouble with recent memories but can not specify further. Family meeting today. -at this point will hold ECT for Tue; will consider either Tuesday or next week. Pt remains highly vulnerable to re-emergence of catatonic symptoms, however, now complaining of memory issues. 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 Patient shared about psychotic symptoms: In [place] (in the weeks before coming to [facility]): pt acknowledged that he was having hallucinations prior to admission. For several weeks, He says in [place] i was experiencing hallucinations...i heard voices telling me to bring material...[with his mind] and i felt like i had to bring them this material or i would be in big trouble... (not sure who they were). He felt like he had no choice in the matter.. Pt was sometimes sleeping on a park bench and thinks the voices were related to this [facility] (on way to [facility]): When he got to [facility], he had hallucinations it was pretty intense there...the voices were definetly stronger saying this is not reality...the reality you think you know is not real..it's all fake... and voices were putting more pressure on me to do what they wanted...they wanted me to do various stretches...and according to them i was failing and they threatened to disban me.... At this point there was more than one voice talking together about him. He found it very distracting and says this was why he was walking around in circles. Shared that AH told him everyone was a dog which he thought was true... (no VH). That's what i was being told...i was made up of multiple dogs... The voices told him to spin in a [employer] to leave the realm... which is what police found him doing while in [facility]. At [facility] in [facility]: delusions/AH persisted; he had belief that he was a child being disciplined by others...AH telling him to beat himself up for discipline; he hit himself a few times but then realized not to... Looking back now, he knows it was his mind not playing tricks on him. Pt says since being here at the hospital he has not had any psychotic symptoms. He says this was hard to talk about but is comfortable talking about it now. -reviewed diagnosis and treatment; discussed antipsychotic medications including Clozaril and discussed risks/side effects including but not limited to agranulocytosis patient understands and agrees to start Clozaril 12/26 Patient reports that he is good and just thinking about catatonia; patient was amazed at how long it lasted. Discussed again about recent diagnosis of schizophrenia and treatment and patient remains amenable to starting Clozaril. 12/27 change to ECT weekly; pt agrees to increase clozapine 12/28; continue treatment plan; agrees to titrate clozapine; ECT Tuesday; continue Ativan 1 mg t.i.d. 12/29 continue with treatment plan Impression: Thankfully catatonic symptoms have fully resolved; will continue with ECT and benzo treatment for now and continually reassess. Regarding recent diagnosis of schizophrenia from other hospitalization and from collateral: Currently patient denies any psychotic symptoms. Patient has autistic spectrum disorder, which some of the symptoms can present similar to being internally preoccupied.... Will continue to monitor. At this time will continue with schizophrenic diagnosis but leave it as provisional... Patient continues to deny symptoms however and presents organized in speech and behavior. With collateral and patient opening up about symptoms, patient meets criteria for schizophrenia Plan: q5's SECTION 8/8a; court-ordered ECT and medications Increased to Clozapine 50mg qhs (reviewed risks/side effects which patient understands and agrees to; Clozaril chosen since not only is at the least likely to cause catatonia but is sometimes treatment for catatonia) Continue Ativan 1 mg t.i.d. p.o. for both benzo withdrawal and to avoid any return of catatonic symptoms ECT MWF (Court ordered; pt on Section 8/8a) ECT #1 on 12/12 ECT #2 on 12/14 ECT #3 on 12/17 ECT #4 on 12/19 ECT #5 on 12/21 ECT #6 on 01/24 ECT 7. Pending for 12/31 Patient educated on: diagnosis, medication risk/benefits and ECT Informed Consent: understands Reason for continued inpatient stay Substantial Risk for: rapid decompensation Time Spent With Patient Time: Total time managing care of this patient today ____ minutes.
[2024-12-29 19:50] VITALS: BP 120/62; PULSE 103; TEMP 36.6; O2SAT 98
[2024-12-29] MEDS: cloZAPine 25 MG TABLET 50 MG PO (20:20)
[2024-12-30 07:49] VITALS: BP 93/54; PULSE 97; TEMP 36.4; O2SAT 98
[2024-12-30] MEDS: Multivitamin TABLET 1 TAB PO (08:56)
[2024-12-30] MEDS: LORazepam 1 MG TABLET PO ×3 (08:56→20:25)
--- NOTE | 2024-12-30 09:36 | HO.PSYCHPN ---
Subjective Subjective Date of Service: 12/30/24 Reason For Visit: catatonia/psychosis/autism Interim History: met with patient; discussed with team Patient reports that he is good and denies any psychiatric symptoms, no SI, no HI no AVH. Patient reports sleeping well. Agrees to continuing with ECT tomorrow Mental Status Exam Mental Status Exam Narrative: Pt is alert and oriented; behavior is cooperative, friendly and calm; without any catatonic symptoms; periodically squints his eyes; patient is not in distress; dressed in hospital attire with unkempt hair but adequate hygiene; mood is described as ok and affect congruent; eye contact a little avoidant; Speech is minimal but normal rate, volume and prosody and not pressured; no psychomotor agitation/retardation present; thought process is goal directed, concrete; Thought content is on past psychotic symptoms, dx, treatment; no delusional ideations expressed; denies any SI/HI. Denies AVH; not clear if patient appears internally preoccupied Patients insight and judgment seems intact and likely at baseline Diagnostics Vital Signs (24Hr): Vital Signs - 24 hr 12/29/24 09:39 12/29/24 19:50 12/30/24 07:49 Temperature 98.2 F 97.8 F 97.6 F Pulse Rate 119 H 103 H 97 Blood Pressure 109/67 120/62 93/54 L Pulse Oximetry 99 98 98 Oxygen Delivery Method Room Air Room Air Room Air BMI result Body Mass Index 30.6 Labs 12/26/24 13:30 12/15/24 07:54 Medications Medications Current Medications Al Hydroxide/Mg Hydroxide (Magnesium Hydrox/Alum Hydrox 30 Ml Oral.Susp) 30 ml PO Q6H PRN PRN Reason: Heartburn/Nausea Clozapine (Clozapine 25 Mg Tablet) 50 mg PO BEDTIME [facility] Last Admin: 12/29/24 20:20 Dose: 50 mg Lorazepam (Lorazepam 1 Mg Tablet) 1 mg PO TID ARNIE Last Admin: 12/30/24 08:56 Dose: 1 mg Magnesium Hydroxide (Milk Of Magnesia 30 Ml Oral.Susp) 30 ml PO DAILY PRN PRN Reason: Constipation Multivitamins/Vitamin C (Multivitamin Tablet) 1 tab PO DAILY [facility] Last Admin: 12/30/24 08:56 Dose: 1 tab Allergies Allergies Allergy/AdvReac Type Severity Reaction Status Date / Time No Known Allergies Allergy Verified 11/28/24 13:56 Assessment & Plan Assessment & Plan (1) 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 Pt transferred to medical floor from ICU for continued IV benzodiazepines, IV fluids, TPN. Patient court-ordered treatment including ECT. Once patient received ECT he started coming out of catatonic symptoms Initial Impression: It is difficult to know the etiology of catatonia. People with autism, psychotic disorders, or taking a antipsychotic medications are all at increased risk for catatonia and patient has all 3 risk factors (so it seems). Again from collateral it sounds very possible that catatonic symptoms started in the community in the week prior to this admission. Here at [facility] with IV benzodiazepines,, patient had observed but minimal improvement with IV diazepam; now on IV Ativan with some additional improvement. Discussed case thoroughly with Dr. Lira who agrees that current treatment plan of IV Ativan as both appropriate and necessary treatment to resolve catatonia and prevent malignant catatonia. Director Corporate Compliance has discussed the possibility of patient needing ECT treatment if IV benzos do not adequately resolve symptoms; family remains cautious about ECT but seems to understand that this could be necessary. After receiving collateral from patient's mother (see below), it seems that patient was demonstrating significant changes in his behavior, very different from his normal way of functioning and his normal expressions of autism. That said , some other family members perspective is with discrepancy from mother's collateral so it is not totally clear. But per the mother, The behavioral changes described sound like prodrome of schizophrenia. Patient's father also observed patient responding to internal stimuli, also very different from his normal expressions. Director Corporate Compliance met with and discussed case with patient's father and then talked with patient's mother who currently lives in [place]. Collateral from patient's mother, Owenmejia, ([phone]) ASD; IEP, honors classes, working; mananing [employer]; graduated [employer]; -around 22 years old, seemed more reclusive and pt started changing -lost job September 2022; missing days, not focused; got fired at next job for going too slow -a year ago, less ADL's, not showering, less motivation, mom thinking more than just ASD since not like this at all in [place] -Refusing to go to appointments. Got him to ED and psych doctor evaluated but was not able to be Sectioned; mom tried other times to get him to doctor, to hospital, but police felt did not meet criteria to section him... -still minimal ADL's; in Fall 2023 started sleeping outside in the park which again, out of character -Jul 2024 making slow movements, like in slow motion, but able to pull out of it; kept sleeping outside in front of her door, peeing on himself or in bottles. -Episodes of staring off and not responding; intermittently would look agitated -Mom sent him to [place] to be with father -no hx of drug/alcohol use -had gone 36 hours w/out sleep, but not hyperactive, withdrawn and either quiet on laptop or making lots of food but not eating -no seizure hx -no hx of medication Hospital course: Initially patient admitted to for psychosis; quickly developed severe catatonia, rigidity, not eating or drinking or moving or talking at all. Moved to medical floor and then ICU for IV benzos: 1.Initially Patient was 1st sent from to the medical floor. Due to national shortage of liquid Ativan, He received midazolam 2 mg IV however patient had no response. He was then given diazepam 10 mg IV and within 30 seconds, he relaxed his muscles, folded his arms, turned over on his side and moved his legs, 1st natural movements observed for several days. Director Corporate Compliance collaborated with Dr. Lira and after literature review, both agreed that patient required immediate IV diazepam treatment to prevent patient from progressing towards a malignant catatonia; since patient had demonstrated initial response to diazepam he should be continued on diazepam; the literature recommends diazepam IV infusion at 10mg/500ml saline at 1.25mg/hour; diazepam infusion not available per hospital formulary so agreed to diazepam 2.5 mg IV push q.2 hours. 2)Hospitalist team/medical floor nursing staff felt patient should be observed on ICU for this administration and he was transferred to the ICU. In the ICU, Patient treated with IV Diazepam for about 36 hours with limited effect, with rigidity having resolved (and periodically briefly opening his eyes) but other symptoms of catatonia remaining including, not following verbal commands and negativism (resistance of examine his manipulation with equal strength). Team agreed to switch from diazepam to Ativan 2 mg IV q.i.d.. After about 12 hours patient improved some more, responding to noxious stimuli/sternal rub and grimaced and actively pushed examiner's hand away. After about 36 hours give or take, dose increase to Ativan 2 mg IV q4H. Patient able to be transferred back to the medical floor. 3) patient on medical floor receiving Ativan 2 mg IV q4h. He remains in the bed with his eyes closed, not responding to verbal commands but is overall moving all limbs more naturally on his own. Negative his remains. ICU 12/06 Patient remains with same minimal improvement observed when starting diazepam; he is moving on his own a little more naturally though still minimally. Will appeared to be trying to open his eyes sometimes when his name is called. Continues with negativism however otherwise is not rigid. Director Corporate Compliance met with patient's father and stepmother Debra. Initially family expressed dissatisfaction with treatment and wanted patient transferred to [facility]. Dr. Jiang reached out to [facility] to discuss case and they declined to take patient at this time, not having a bed available and also not being able to provide ECT should patient require it. Patient's family accepted this. Director Corporate Compliance again spent about an hour providing education on catatonia, its causes and its treatments, including ECT; explained ECT procedure as well. Dr. Lira also provided the family with printed out literature regarding these topics, including ECT. After discussion, patient's family seemed to agree with current treatment plan of continuing with benzodiazepines. Since patient had only a minimal response to IV diazepam, decision was made to switch to IV Ativan to see if this would be more effective; also discussed with family who agreed with this plan. Director Corporate Compliance again offered to talk with family member who is a neurologist and gave them commercial insurance underwriter's contact information to pass along. 12/07 some change in presentation as patient now responsive to noxious stimuli/chest rub, grimacing and pushing examiner's hand away. Director Corporate Compliance and Dr. Lira agree this is improvement and evidence that Ativan is helping (progression: rigidity and no response to noxious stimuli -- progressed to absence of rigidity but still no response to noxious stimuli--progressed to now, pt with active response to noxious stimuli). -Literature reviewed and after team discussion agreed to increase IV Ativan to 2 mg q.4h -brain MRI unremarkable -Discussed with Dr. Jiang who felt patient could be safely transferred back to medical floor out of ICU; family informed Medical floor: 12/08 patient remains catatonic, not opening his eyes, not responding to any verbal interactions; remains with negativism; however is moving increasingly or naturally on his own. Discussed with dr. Ernandez. -continue with Ativan 2 mg q4h for now 12/09 Last night/early AM pt spiked fever 105, tachy, tachypneic. Treated with abx, cooling blanket, rectal acetaminophen; CXR negative. Temp came down and pt only mildly tachy; RR 18. Also...This morning, pt woke up, talked with Dr. Ernandez and asked for a sandwich; a little later with nurse, he knew his name, and that he was at [facility]. Later in day, on approach, pt sleeping, sometimes yawning; did not wake up to speaking his name; commercial insurance underwriter did not do sternal rub -tried to test for rigidity but not able to assess since pt's remains w/ negativism (catatonic symptom of resisting examiner w/ equal force) but pt appears to be moving around easily enough on his own. -did not really at risk for NMS since pt only on Diazepam T:99.4 (on cooling blanket) BP:112/68 O2 96% HR 98 RR: 18 lips appear swollen UA unremarkable CXR unremarkable negative covid/rsv/flu Director Corporate Compliance discussed case with Dr. Lira; commercial insurance underwriter Discussed case with Dr. Ernandez regarding blood cultures/LP; at this time Dr. Ernandez would like to continue monitoring but advance to LP if patient does not improve. Hospital ran out of Ativan; will switch back to diazepam Impression: Despite the fact that patient spiked a fever and was tachy and tachypneic, the fact that he woke up, was talking, interacting oriented to self and place was very encouraging. Ativan seems to have been more effective than diazepam and remains preferred, however diazepam has had some positive effect. Patient being worked up for infectious etiology, though he does not appear ill looking. It is possible that fever, increased heart rate respiratory rate was a brief crossing into a malignant catatonia; will continue with current treatment plan; ECT remains consider most effective treatment however need court order 12/11 LP so far mostly negative with a few parameters still pending; Afebrile and vitals WNL Patient remains with eyes closed but is moving his body and head around on his own; sometimes role in his head around and around. Still does not respond to verbal stimuli. Waxy flexibility noted; initially only minimal negativeism however this increased with examiners manipulations. Has not open his eyes or talked since Friday 12/08 (per father patient also talked with his mother on the phone, talked with his grandmother). -discussed with pharmacist and some additional Ativan has been procured though in a very limited supply; will restart Ativan IV -of note diazepam infusion is not possible per pharmacy -would also consider memantine, though must be taken p.o. Impression: Patient has certainly improved with IV benzodiazepines, lorazepam seeming to be the most effective. However he remains with severe catatonia. Although he open his eyes and spoke briefly, he has not done so for 3 days and for the past 3 days he has remained with eyes closed, nonverbal, not responding to verbal cues, not eating, not drinking. Thus far, workup for infection has been unremarkable, with only a few LP labs still pending. Because no infectious process can be identified patient is episode of fever, tachycardia and tachypnea remain concerning for possible brief transitioned into malignant catatonia. Currently patient is afebrile and vitals WNL however the risks increase the longer catatonia persists and ECT remains the most viable treatment option -court scheduled for today 12/12 ECT today. Discussed case in detail with Dr. Lira who agreed with proceeding to ECT for following reasons: 1. He remains with Severe catatonia; he is not eating, drinking, talking or opening his eyes, responding to verbal stimuli or getting out of bed; he cannot communicate or receive information; he continues to need IV fluids, nutrition without which he would go into organ failure and . 2. This past weekend, he became febrile with a temperature spiking to 105 degrees; he was tachycardic to 133, tachypneic to 22 RR? temperature lowered but he remained febrile for the next day...... After thorough workup which included an LP, chest x-ray, UA, RSV/COVID/flu? no infectious process identified, other than possible sinusitis. Was this episode of autonomic dysregulation a brief crossover into malignant catatonia? Concern for patients condition to turn malignant increases the longer catatonia persists. 3. The longer a person remains catatonic the harder it becomes to resolve it. Prolonged catatonia correlates with higher risk of serious medical complications, including ?and include the risks associated with continuous IV, [place], and being bed bound. A person can rapidly deteriorate despite being on benzodiaepines. 4. Literature recommends a Switch to ECT when: Lorazepam (Ativan) fails after 3?5 days of adequate dosing (e.g., 6?12 mg/day) to prevent poor outcome (Electroconvulsive therapy in catatonic patients: Efficacy and predictors of response (2015)) -Will continue with ECT WMF Will treat with Diazepam 5mg IV TID to treat for Benzo withdrawal and to treat catatonia; as pt improves, will taper benzo 12/13 Patient open his eyes, started answering questions by nodding his head and remained so throughout the day. Director Corporate Compliance explained patient's condition and treatment though doubtful patient understood much of it. Director Corporate Compliance gave him 2 doses of IV Ativan 2 mg which seemed to help because Later on commercial insurance underwriter was informed the patient was again talking, eating and drinking. ECT tomorrow but if patient remains much improved, maybe able to return to the psychiatric unit -discussed case with Dr. Serrano and Dr. Lira and will continue benzos both to help make sure catatonia does not return and to avoid benzo withdrawal RETURNED TO PSYCH UNIT M5 (12/14): Patient significantly improved, walking, talking, eating, drinking and moving about. Patient was able to return to the psych floor. Plan is to continue ECT doing better on ativan 1mg tid, on 1:1 eating- some odd behaviors but no longer fully catatonic! 12/16 - dc 1:1, pt requested ensure with meals- maybe be rebound hunger from not eating while catatonic. 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 Patient eating, drinking, talking, walking and interacting appropriately (keeping in mind ASD) Patient does not remember any of the events preceding this admission or during until getting to the psychiatric floor; catatonia and treatment explained to patient and he is amenable to continuing with ECT and benzodiazepines. Patient says he feels back to his regular self in his father was present, says he thinks so too. Patient denies any psychotic symptoms at all Although patient is much improved, he remained significantly vulnerable to return of catatonic symptoms. Discussed with Dr. Lira who agrees to Continue with ECT on 12/19 and 12/21 so as to prevent any return of catatonic symptoms; will continue with Ativan but likely further taper at some point. Will continue to assess. Regarding guardianship, at this time commercial insurance underwriter does not see a need for patient to have a guardian. Currently however patient has no outpatient providers and no where to live; where patient to be discharged now he would likely become quickly impaired 12/19 Patient says he is doing well. He remains feeling like his normal self. Patient continues to deny any AH or paranoid ideations and says he does not remember having any of these before. He says he finds the atmosphere on the unit to be pretty good and has no complaints. Patient asked about ECT, how much more he is going to get and agrees to treatment plan. Discussed post discharge and patient said he liked living in [place] and is considering going back to his mother's there but wonders if staying here might be easier. He said he also is considering going to his aunt's house in [place]. 12/20 Patient remains organized in speech and behavior. Talked about ECT, talked about his goals. Patient said he would like to find working computers, something he has been interested in for years. He has some ambivalence about returning to [place] since he says he and his mom have very different view on things; she very much wanted him to join the [employer] though he did not think it was necessarily a good fit for him. Discussed autism and patient knows that he has had this diagnosis and has worked through it for years. He continues to deny any psychotic symptoms at all. -patient's mother told health care social worker that after having talked with them on the phone for the past several days she says he sounds like his regular self. 12/21 no change in presentation; no problems with ECT denies any psychiatric symptoms; denies psychotic symptoms, Pt shared ambivalence about returning to live w/ mom in [place]; he agrees that option of staying [facility] [place] is precarious. Family meeting tuesday -ECT on tuesday and then will re-assess -continue ativan 1 mg TID (to prevent return of symptoms) 12/23 Continue tx 12/24 pt denies any psychotic symptoms. He had ECT today and says he's having trouble with recent memories but can not specify further. Family meeting today. -at this point will hold ECT for Tue; will consider either Tuesday or next week. Pt remains highly vulnerable to re-emergence of catatonic symptoms, however, now complaining of memory issues. 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 Patient shared about psychotic symptoms: In [place] (in the weeks before coming to [facility]): pt acknowledged that he was having hallucinations prior to admission. For several weeks, He says in [place] i was experiencing hallucinations...i heard voices telling me to bring material...[with his mind] and i felt like i had to bring them this material or i would be in big trouble... (not sure who they were). He felt like he had no choice in the matter.. Pt was sometimes sleeping on a park bench and thinks the voices were related to this [facility] (on way to [facility]): When he got to [facility], he had hallucinations it was pretty intense there...the voices were definetly stronger saying this is not reality...the reality you think you know is not real..it's all fake... and voices were putting more pressure on me to do what they wanted...they wanted me to do various stretches...and according to them i was failing and they threatened to disban me.... At this point there was more than one voice talking together about him. He found it very distracting and says this was why he was walking around in circles. Shared that AH told him everyone was a dog which he thought was true... (no VH). That's what i was being told...i was made up of multiple dogs... The voices told him to spin in a [place] to leave the realm... which is what police found him doing while in [facility]. [facility]: delusions/AH persisted; he had belief that he was a child being disciplined by others...AH telling him to beat himself up for discipline; he hit himself a few times but then realized not to... Looking back now, he knows it was his mind not playing tricks on him. Pt says since being here at the hospital he has not had any psychotic symptoms. He says this was hard to talk about but is comfortable talking about it now. -reviewed diagnosis and treatment; discussed antipsychotic medications including Clozaril and discussed risks/side effects including but not limited to agranulocytosis patient understands and agrees to start Clozaril 12/26 Patient reports that he is good and just thinking about catatonia; patient was amazed at how long it lasted. Discussed again about recent diagnosis of schizophrenia and treatment and patient remains amenable to starting Clozaril. 12/27 change to ECT weekly; pt agrees to increase clozapine 12/28; continue treatment plan; agrees to titrate clozapine; ECT Tuesday; continue Ativan 1 mg t.i.d. 12/29 continue with treatment plan 12/30 continue with treatment plan; ECT tomorrow Tuesday. Moving ECT to once a week and dispo planning continues Impression: Thankfully catatonic symptoms have fully resolved; will continue with ECT and benzo treatment for now and continually reassess. Regarding recent diagnosis of schizophrenia from other hospitalization and from collateral: Currently patient denies any psychotic symptoms. Patient has autistic spectrum disorder, which some of the symptoms can present similar to being internally preoccupied.... Will continue to monitor. At this time will continue with schizophrenic diagnosis but leave it as provisional... Patient continues to deny symptoms however and presents organized in speech and behavior. With collateral and patient opening up about symptoms, patient meets criteria for schizophrenia Plan: q5's SECTION 8/; court-ordered ECT and medications Increased to Clozapine 50mg qhs (reviewed risks/side effects which patient understands and agrees to; Clozaril chosen since not only is at the least likely to cause catatonia but is sometimes treatment for catatonia) Continue Ativan 1 mg t.i.d. p.o. for both benzo withdrawal and to avoid any return of catatonic symptoms ECT MWF (Court ordered; pt on Section 8/8a) ECT #1 on 12/12 ECT #2 on 12/14 ECT #3 on 12/17 ECT #4 on 12/19 ECT #5 on 12/21 ECT #6 on 01/24 ECT 7. Pending for 12/31 Patient educated on: diagnosis, medication risk/benefits and ECT Informed Consent: understands Reason for continued inpatient stay Substantial Risk for: stable for discharge Time Spent With Patient Time: Total time managing care of this patient today ____ minutes.
[2024-12-30 19:47] VITALS: BP 128/78; PULSE 99; TEMP 37.1; O2SAT 98
[2024-12-30] MEDS: cloZAPine 25 MG TABLET 50 MG PO (20:25)
[2024-12-31] VITALS (13 sets, daily range): BP systolic 107–139; BP diastolic 70–93; PULSE 99–136; RESP 16–23; TEMP 35.8–37.4; O2SAT 91–100
--- NOTE | 2024-12-31 06:08 | PC.NURSE ---
Reported to Chuck in PACU that pt. received HS lorazepam 1 mg. last night.
--- NOTE | 2024-12-31 06:46 | P.CONAN_ITS ---
[facility]LY [facility] Active Problems Active Problems: All Active Problems Fever, unknown origin (Acute) Catatonia (Acute) Schizophrenia (Acute) Autism spectrum disorder (Acute) Psychiatric illness (Acute) Past Medical History Medical History Fever, unknown origin Autism spectrum disorder Functional capacity: independent ambulation Family History Family history of problems with anesthesia: No Surgical History History of Problems with Anesthesia: No Social History Social History Household Members: None Household Members Other:: pt is admit fr M# for catatonia, not response to questions, JULIO CESAR Housing: Homeless Do you presently have visiting nurse or other home services: No Comment: 1:1 sitter at bedside Patient Tobacco Use Status: Never used Tobacco e-Cigarette/Vaping Use: Never Used Second Hand Smoke Exposure: No Use of substances other than those prescribed or required for medical reasons: No Currently Displaying Signs/Symptoms of Drug Intoxication Withdrawal: No Any prior treatment program specific to substance use: No Spiritual Healthcare Practices: unable to participate Taoism Healthcare Practices: unable to participate Cultural Healthcare Practices: unable to participate Advance Directives: No Advance Directives Information Provided: Yes Do you have thoughts of harming others: None Do you have a plan to hurt others: No Plan Recently lost weight without trying: Unsure Poor oral hygiene: No service: No Sexual orientation: Did not discuss Meds Allergies Allergy/AdvReac Type Severity Reaction Status Date / Time No Known Allergies Allergy Verified 11/28/24 13:56 Active Medications: Current Medications Al Hydroxide/Mg Hydroxide (Magnesium Hydrox/Alum Hydrox 30 Ml Oral.Susp) 30 ml PO Q6H PRN PRN Reason: Heartburn/Nausea Clozapine (Clozapine 25 Mg Tablet) 50 mg PO BEDTIME ARNIE Last Admin: 12/30/24 20:25 Dose: 50 mg Lactated Ringer's (Lr) 1,000 mls @ 50 mls/hr IVCONT .Q20H ARNIE Lorazepam (Lorazepam 1 Mg Tablet) 1 mg PO TID ARNIE Last Admin: 12/30/24 20:25 Dose: 1 mg Magnesium Hydroxide (Milk Of Magnesia 30 Ml Oral.Susp) 30 ml PO DAILY PRN PRN Reason: Constipation Multivitamins/Vitamin C (Multivitamin Tablet) 1 tab PO DAILY ARNIE Last Admin: 12/30/24 08:56 Dose: 1 tab Naloxone HCl (Naloxone Hcl 0.4 Mg/Ml Vial) 0.04 mg IVPUSH Q5M PRN PRN Reason: Excessive sedation or RR < 8 Home Medications ?Medication ?Instructions ?Recorded ?Confirmed ?Last Taken ?Type lamotrigine 25 mg tablet 25 mg PO BID 12/14/24 12/14/24 Unknown History multivitamin with folic acid 400 1 tab PO DAILY 12/14/24 12/14/24 Unknown History mcg tablet (Daily-Luh (with folic acid)) risperidone 1 mg tablet 1 mg PO BID 12/14/24 12/14/24 Unknown History Exam Height,Weight and Vital Signs: Height 6 ft Weight 102.2 kg Last Vital Signs Temp 97.8 F 12/31/24 06:03 Pulse 136 H 12/31/24 06:03 Resp 18 12/31/24 06:03 BP 136/93 H 12/31/24 06:03 Pulse Ox 100 12/31/24 06:03 O2 Del Method Room Air 12/31/24 06:03 O2 Flow Rate 2 12/21/24 09:30 Pertinent Lab Results Pertinent Lab Results: Laboratory Tests 12/15/24 12/26/24 07:54 13:30 WBC 8.1 4.5 L RBC 4.02 L 4.26 L Hgb 12.1 L 12.6 L Hct 36.3 L 38.9 L MCV 90.3 91.3 MCH 30.1 29.6 MCHC 33.3 32.4 RDW 12.3 13.3 Plt Count 311 D 399 D MPV 9.9 9.5 Immature Gran % (Auto) 2.2 H 0.9 H Neut % (Auto) 51.5 33.5 L Lymph % (Auto) 37.2 55.1 H [place] % (Auto) 6.3 6.2 Eos % (Auto) 2.1 2.7 Baso % (Auto) 0.7 1.6 Lymph # (Auto) 3.0 2.5 [place] # (Auto) 0.5 0.3 Eos # (Auto) 0.2 0.1 Baso # (Auto) 0.1 0.1 Abs Immat Gran (auto) 0.18 H 0.04 H Absolute Neuts (auto) 4.1 1.5 L Absolute Nucleated RBC 0.000 0.000 Nucleated RBC % (auto) 0.0 0.0 Sodium 142 Potassium 4.3 Chloride 106 Carbon Dioxide 28 Anion Gap 12 BUN 11 Creatinine 0.84 Estim Creat Clear Calc 162.9 Estimated GFR > 60 Random Glucose 85 Estimat Average Glucose 82 Hemoglobin A1c % 4.5 Calcium 10.0 Total Bilirubin 0.5 AST 40 H ALT 82 H Alkaline Phosphatase 47 Total Protein 7.1 Albumin 3.8 Triglycerides 30 Cholesterol 114 LDL Cholesterol, Calc 88 HDL Cholesterol 20 L Airway Mallampati Class: III TM Dist: >3cm Neck ROM: Full Heart: rrr Lungs: cta Assessment and Plan Assessment Anesthesia Assessment: Anesthesia Plan Discussed and Chart Reviewed Final Anesthetic Review Family History of Problems with Anesthesia: No History of Problems with Anesthesia: No NPO: Yes ASA Class: III Final Preanesthetic Review: No Changes in Pt Med Stat, Meds/Allgs Chart Reviewed and Consent Obtained/Reviewed Patient Risk: Intermediate Procedure Risk: Intermediate Anesthetic Plan Anesthetic Plan: GA Disposition: Standard PACU
[2024-12-31] MEDS: Lactated Ringers 1,000 ML 50 ML IVCONT (07:11)
--- NOTE | 2024-12-31 07:32 | MHC.SHP ---
Pre-Procedural Eval Section A - 24 Hr Update-Section A only Date of Service: 12/31/24 The patient is an INPATIENT: Yes Changes since office visit: Yes Patient answered all questions; No Cold of Flu in the past 2 weeks, No New Medical Problems and No Changes in Medication The patient has been examined within 24 hours of the surgical procedure. The History & Physical has been completed within 30 days and I have reviewed it.: Yes Section B - Complete if H&P > 30 days Chief Complaint: catatonia/psychosis/autism Allergies: Allergies Allergy/AdvReac Type Severity Reaction Status Date / Time No Known Allergies Allergy Verified 11/28/24 13:56 Plan I have reviewed the history and physical and performed a pertinent physical examination on my patient. No changes have occurred unless specified. Time Spent With Patient Time: Total time managing care of this patient today ____ minutes.
--- NOTE | 2024-12-31 07:53 | HO.ECTPROC ---
ECT Procedure Note Diagnosis/Treatment Date of Service: 12/31/24 Diagnosis: Catatonia Previous ECT Date: 12/21/24 Current Treatment Number: 6 Treatment: Series Interval Clinical Notes: remains much improved from admission. The patient is no longer catatonic he states he will be going to live with his grandmother in [place] Time: Total time managing care of this patient today ____ minutes. ECT Settings Device: THYMATRON DGx Electrode Placement: Bifrontal Program/Pulse Width: 0.25 Energy Percent: 30 Seizure Duration By EEG (in seconds): 76 Medications Administration General Anesthetic: Etomidate (16) Muscle Relaxant: Succinylcholine (100) Ancillary Medications Miscillaneous Medications: Propofol (30 mg) Airway Management Airway Management: Bag Mask Ventilation Treatment Recommendations No Changes Recommended: No change Program/Pulse Width: 0.25 Energy Percent: 20 Notes: Continue to monitor response to treatment will review with Dr. Saucedo Pt Tolerated Procedure w/o Issue: Yes
--- NOTE | 2024-12-31 09:34 | HO.PSYCHPN ---
Subjective Subjective Date of Service: 12/31/24 Reason For Visit: catatonia/psychosis/autism Interim History: met with patient; discussed with team Patient had ECT today which he said was without problems; agrees to continue titration of clozapine; denies psychiatric symptoms. Reviewed treatment plan and patient agrees Mental Status Exam Mental Status Exam Narrative: Pt is alert and oriented; behavior is cooperative, friendly and calm; without any catatonic symptoms; periodically squints his eyes; patient is not in distress; dressed in hospital attire with unkempt hair but adequate hygiene; mood is described as ok and affect congruent; eye contact a little avoidant; Speech is minimal but normal rate, volume and prosody and not pressured; no psychomotor agitation/retardation present; thought process is goal directed, concrete; Thought content is on past psychotic symptoms, dx, treatment; no delusional ideations expressed; denies any SI/HI. Denies AVH; not clear if patient appears internally preoccupied Patients insight and judgment seems intact and likely at baseline Diagnostics Vital Signs (24Hr): Vital Signs - 24 hr 12/30/24 19:47 12/31/24 05:55 12/31/24 06:03 Temperature 98.8 F 97.8 F 97.8 F Pulse Rate 99 136 H 136 H Respiratory Rate 18 18 Blood Pressure 128/78 136/93 H 136/93 H Pulse Oximetry 98 100 Oxygen Delivery Method Room Air Room Air Oxygen Flow Rate 12/31/24 06:47 12/31/24 07:58 12/31/24 08:03 Temperature 97.9 F 97.5 F Pulse Rate 109 H 105 H 106 H Respiratory Rate 18 22 H 22 H Blood Pressure 139/83 126/73 137/81 Pulse Oximetry 99 91 L 96 Oxygen Delivery Method Room Air Nasal Cannula with ETCO2 Nasal Cannula with ETCO2 Oxygen Flow Rate 2 2 12/31/24 08:08 12/31/24 08:13 12/31/24 08:28 Temperature Pulse Rate 108 H 109 H 108 H Respiratory Rate 22 H 23 H 21 H Blood Pressure 134/75 124/82 119/75 Pulse Oximetry 97 97 97 Oxygen Delivery Method Nasal Cannula Nasal Cannula Room Air Oxygen Flow Rate 2 2 12/31/24 08:43 12/31/24 08:58 Temperature 97.5 F Pulse Rate 122 H 99 Respiratory Rate 20 20 Blood Pressure 115/75 107/70 Pulse Oximetry 98 97 Oxygen Delivery Method Room Air Room Air Oxygen Flow Rate BMI result Body Mass Index 30.6 Labs 12/26/24 13:30 12/15/24 07:54 Medications Medications Current Medications Al Hydroxide/Mg Hydroxide (Magnesium Hydrox/Alum Hydrox 30 Ml Oral.Susp) 30 ml PO Q6H PRN PRN Reason: Heartburn/Nausea Clozapine (Clozapine 25 Mg Tablet) 50 mg PO BEDTIME [facility] Last Admin: 12/30/24 20:25 Dose: 50 mg Lactated Ringer's (Lr) 1,000 mls @ 50 mls/hr IVCONT .Q20H [facility] Last Admin: 12/31/24 07:11 Dose: 50 mls/hr Lorazepam (Lorazepam 1 Mg Tablet) 1 mg PO TID [facility] Last Admin: 12/30/24 20:25 Dose: 1 mg Magnesium Hydroxide (Milk Of Magnesia 30 Ml Oral.Susp) 30 ml PO DAILY PRN PRN Reason: Constipation Multivitamins/Vitamin C (Multivitamin Tablet) 1 tab PO DAILY [facility] Last Admin: 12/30/24 08:56 Dose: 1 tab Naloxone HCl (Naloxone Hcl 0.4 Mg/Ml Vial) 0.04 mg IVPUSH Q5M PRN PRN Reason: Excessive sedation or RR < 8 Allergies Allergies Allergy/AdvReac Type Severity Reaction Status Date / Time No Known Allergies Allergy Verified 11/28/24 13:56 Assessment & Plan Assessment & Plan (1) 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 Pt transferred to medical floor from ICU for continued IV benzodiazepines, IV fluids, TPN. Patient court-ordered treatment including ECT. Once patient received ECT he started coming out of catatonic symptoms Initial Impression: It is difficult to know the etiology of catatonia. People with autism, psychotic disorders, or taking a antipsychotic medications are all at increased risk for catatonia and patient has all 3 risk factors (so it seems). Again from collateral it sounds very possible that catatonic symptoms started in the community in the week prior to this admission. Here at [facility] with IV benzodiazepines,, patient had observed but minimal improvement with IV diazepam; now on IV Ativan with some additional improvement. Discussed case thoroughly with Dr. Lira who agrees that current treatment plan of IV Ativan as both appropriate and necessary treatment to resolve catatonia and prevent malignant catatonia. Hydraulic Press In Operator has discussed the possibility of patient needing ECT treatment if IV benzos do not adequately resolve symptoms; family remains cautious about ECT but seems to understand that this could be necessary. After receiving collateral from patient's mother (see below), it seems that patient was demonstrating significant changes in his behavior, very different from his normal way of functioning and his normal expressions of autism. That said , some other family members perspective is with discrepancy from mother's collateral so it is not totally clear. But per the mother, The behavioral changes described sound like prodrome of schizophrenia. Patient's father also observed patient responding to internal stimuli, also very different from his normal expressions. Hydraulic Press In Operator met with and discussed case with patient's father and then talked with patient's mother who currently lives in [place]. Collateral from patient's mother, Cliff, ([phone]) ASD; IEP, honors classes, working; spelling [employer]; graduated [employer]; -around 22 years old, seemed more reclusive and pt started changing -lost job September 2022; missing days, not focused; got fired at next job for going too slow -a year ago, less ADL's, not showering, less motivation, mom thinking more than just ASD since not like this at all in [place] -Refusing to go to appointments. Got him to ED and psych doctor evaluated but was not able to be Sectioned; mom tried other times to get him to doctor, to hospital, but police felt did not meet criteria to section him... -still minimal ADL's; in Fall 2023 started sleeping outside in the park which again, out of character -Jul 2024 making slow movements, like in slow motion, but able to pull out of it; kept sleeping outside in front of her door, peeing on himself or in bottles. -Episodes of staring off and not responding; intermittently would look agitated -Mom sent him to [place] to be with father -no hx of drug/alcohol use -had gone 36 hours w/out sleep, but not hyperactive, withdrawn and either quiet on laptop or making lots of food but not eating -no seizure hx -no hx of medication Hospital course: Initially patient admitted to for psychosis; quickly developed severe catatonia, rigidity, not eating or drinking or moving or talking at all. Moved to medical floor and then ICU for IV benzos: 1.Initially Patient was 1st sent from to the medical floor. Due to national shortage of liquid Ativan, He received midazolam 2 mg IV however patient had no response. He was then given diazepam 10 mg IV and within 30 seconds, he relaxed his muscles, folded his arms, turned over on his side and moved his legs, 1st natural movements observed for several days. Hydraulic Press In Operator collaborated with Dr. Lira and after literature review, both agreed that patient required immediate IV diazepam treatment to prevent patient from progressing towards a malignant catatonia; since patient had demonstrated initial response to diazepam he should be continued on diazepam; the literature recommends diazepam IV infusion at 10mg/500ml saline at 1.25mg/hour; diazepam infusion not available per hospital formulary so agreed to diazepam 2.5 mg IV push q.2 hours. 2)Hospitalist team/medical floor nursing staff felt patient should be observed on ICU for this administration and he was transferred to the ICU. In the ICU, Patient treated with IV Diazepam for about 36 hours with limited effect, with rigidity having resolved (and periodically briefly opening his eyes) but other symptoms of catatonia remaining including, not following verbal commands and negativism (resistance of examine his manipulation with equal strength). Team agreed to switch from diazepam to Ativan 2 mg IV q.i.d.. After about 12 hours patient improved some more, responding to noxious stimuli/sternal rub and grimaced and actively pushed examiner's hand away. After about 36 hours give or take, dose increase to Ativan 2 mg IV q4H. Patient able to be transferred back to the medical floor. 3) patient on medical floor receiving Ativan 2 mg IV q4h. He remains in the bed with his eyes closed, not responding to verbal commands but is overall moving all limbs more naturally on his own. Negative his remains. ICU 12/06 Patient remains with same minimal improvement observed when starting diazepam; he is moving on his own a little more naturally though still minimally. Will appeared to be trying to open his eyes sometimes when his name is called. Continues with negativism however otherwise is not rigid. Hydraulic Press In Operator met with patient's father and stepmother Debra. Initially family expressed dissatisfaction with treatment and wanted patient transferred to [facility]. Dr. Jiang reached out to [facility] to discuss case and they declined to take patient at this time, not having a bed available and also not being able to provide ECT should patient require it. Patient's family accepted this. Hydraulic Press In Operator again spent about an hour providing education on catatonia, its causes and its treatments, including ECT; explained ECT procedure as well. Dr. Lira also provided the family with printed out literature regarding these topics, including ECT. After discussion, patient's family seemed to agree with current treatment plan of continuing with benzodiazepines. Since patient had only a minimal response to IV diazepam, decision was made to switch to IV Ativan to see if this would be more effective; also discussed with family who agreed with this plan. Hydraulic Press In Operator again offered to talk with family member who is a neurologist and gave them freelance writer's contact information to pass along. 12/07 some change in presentation as patient now responsive to noxious stimuli/chest rub, grimacing and pushing examiner's hand away. Hydraulic Press In Operator and Dr. Lira agree this is improvement and evidence that Ativan is helping (progression: rigidity and no response to noxious stimuli -- progressed to absence of rigidity but still no response to noxious stimuli--progressed to now, pt with active response to noxious stimuli). -Literature reviewed and after team discussion agreed to increase IV Ativan to 2 mg q.4h -brain MRI unremarkable -Discussed with Dr. Jiang who felt patient could be safely transferred back to medical floor out of ICU; family informed Medical floor: 12/08 patient remains catatonic, not opening his eyes, not responding to any verbal interactions; remains with negativism; however is moving increasingly or naturally on his own. Discussed with dr. Ernandez. -continue with Ativan 2 mg q4h for now 12/09 Last night/early AM pt spiked fever 105, tachy, tachypneic. Treated with abx, cooling blanket, rectal acetaminophen; CXR negative. Temp came down and pt only mildly tachy; RR 18. Also...This morning, pt woke up, talked with Dr. Ernandez and asked for a sandwich; a little later with nurse, he knew his name, and that he was at [facility]. Later in day, on approach, pt sleeping, sometimes yawning; did not wake up to speaking his name; freelance writer did not do sternal rub -tried to test for rigidity but not able to assess since pt's remains w/ negativism (catatonic symptom of resisting examiner w/ equal force) but pt appears to be moving around easily enough on his own. -did not really at risk for NMS since pt only on Diazepam T:99.4 (on cooling blanket) BP:112/68 O2 96% HR 98 RR: 18 lips appear swollen UA unremarkable CXR unremarkable negative covid/rsv/flu Hydraulic Press In Operator discussed case with Dr. Lira; freelance writer Discussed case with Dr. Ernandez regarding blood cultures/LP; at this time Dr. Ernandez would like to continue monitoring but advance to LP if patient does not improve. Hospital ran out of Ativan; will switch back to diazepam Impression: Despite the fact that patient spiked a fever and was tachy and tachypneic, the fact that he woke up, was talking, interacting oriented to self and place was very encouraging. Ativan seems to have been more effective than diazepam and remains preferred, however diazepam has had some positive effect. Patient being worked up for infectious etiology, though he does not appear ill looking. It is possible that fever, increased heart rate respiratory rate was a brief crossing into a malignant catatonia; will continue with current treatment plan; ECT remains consider most effective treatment however need court order 12/11 LP so far mostly negative with a few parameters still pending; Afebrile and vitals WNL Patient remains with eyes closed but is moving his body and head around on his own; sometimes role in his head around and around. Still does not respond to verbal stimuli. Waxy flexibility noted; initially only minimal negativeism however this increased with examiners manipulations. Has not open his eyes or talked since Friday 12/08 (per father patient also talked with his mother on the phone, talked with his grandmother). -discussed with pharmacist and some additional Ativan has been procured though in a very limited supply; will restart Ativan IV -of note diazepam infusion is not possible per pharmacy -would also consider memantine, though must be taken p.o. Impression: Patient has certainly improved with IV benzodiazepines, lorazepam seeming to be the most effective. However he remains with severe catatonia. Although he open his eyes and spoke briefly, he has not done so for 3 days and for the past 3 days he has remained with eyes closed, nonverbal, not responding to verbal cues, not eating, not drinking. Thus far, workup for infection has been unremarkable, with only a few LP labs still pending. Because no infectious process can be identified patient is episode of fever, tachycardia and tachypnea remain concerning for possible brief transitioned into malignant catatonia. Currently patient is afebrile and vitals WNL however the risks increase the longer catatonia persists and ECT remains the most viable treatment option -court scheduled for today 12/12 ECT today. Discussed case in detail with Dr. Lira who agreed with proceeding to ECT for following reasons: 1. He remains with Severe catatonia; he is not eating, drinking, talking or opening his eyes, responding to verbal stimuli or getting out of bed; he cannot communicate or receive information; he continues to need IV fluids, nutrition without which he would go into organ failure and . 2. This past weekend, he became febrile with a temperature spiking to 105 degrees; he was tachycardic to 133, tachypneic to 22 RR? temperature lowered but he remained febrile for the next day...... After thorough workup which included an LP, chest x-ray, UA, RSV/COVID/flu? no infectious process identified, other than possible sinusitis. Was this episode of autonomic dysregulation a brief crossover into malignant catatonia? Concern for patients condition to turn malignant increases the longer catatonia persists. 3. The longer a person remains catatonic the harder it becomes to resolve it. Prolonged catatonia correlates with higher risk of serious medical complications, including ?and include the risks associated with continuous IV, S[place]ana, and being bed bound. A person can rapidly deteriorate despite being on benzodiaepines. 4. Literature recommends a Switch to ECT when: Lorazepam (Ativan) fails after 3?5 days of adequate dosing (e.g., 6?12 mg/day) to prevent poor outcome (Electroconvulsive therapy in catatonic patients: Efficacy and predictors of response (2015)) -Will continue with ECT WMF Will treat with Diazepam 5mg IV TID to treat for Benzo withdrawal and to treat catatonia; as pt improves, will taper benzo 12/13 Patient open his eyes, started answering questions by nodding his head and remained so throughout the day. Hydraulic Press In Operator explained patient's condition and treatment though doubtful patient understood much of it. Hydraulic Press In Operator gave him 2 doses of IV Ativan 2 mg which seemed to help because Later on freelance writer was informed the patient was again talking, eating and drinking. ECT tomorrow but if patient remains much improved, maybe able to return to the psychiatric unit -discussed case with Dr. Serrano and Dr. Lira and will continue benzos both to help make sure catatonia does not return and to avoid benzo withdrawal RETURNED TO PSYCH UNIT M5 (12/14): Patient significantly improved, walking, talking, eating, drinking and moving about. Patient was able to return to the psych floor. Plan is to continue ECT doing better on ativan 1mg tid, on 1:1 eating- some odd behaviors but no longer fully catatonic! 12/16 - dc 1:1, pt requested ensure with meals- maybe be rebound hunger from not eating while catatonic. reports fine no clear report from patient of prior days when he was catatonic- but now sleeping, eating and drinking fluids- denies si/hi/psychosis- refused ativan this am but couldn't say why - When asked about student/work - he says he had a job in [employer]- Case discussed with dr Lira who feels ECT helped- when ativan hadn't now doing well on on current ativan- no longer need for 1:1 12/18 Patient remains significantly improved and perhaps with no residual catatonic symptoms. Patient eating, drinking, talking, walking and interacting appropriately (keeping in mind ASD) Patient does not remember any of the events preceding this admission or during until getting to the psychiatric floor; catatonia and treatment explained to patient and he is amenable to continuing with ECT and benzodiazepines. Patient says he feels back to his regular self in his father was present, says he thinks so too. Patient denies any psychotic symptoms at all Although patient is much improved, he remained significantly vulnerable to return of catatonic symptoms. Discussed with Dr. Lira who agrees to Continue with ECT on 12/19 and 12/21 so as to prevent any return of catatonic symptoms; will continue with Ativan but likely further taper at some point. Will continue to assess. Regarding guardianship, at this time freelance writer does not see a need for patient to have a guardian. Currently however patient has no outpatient providers and no where to live; where patient to be discharged now he would likely become quickly impaired 12/19 Patient says he is doing well. He remains feeling like his normal self. Patient continues to deny any AH or paranoid ideations and says he does not remember having any of these before. He says he finds the atmosphere on the unit to be pretty good and has no complaints. Patient asked about ECT, how much more he is going to get and agrees to treatment plan. Discussed post discharge and patient said he liked living in [place] and is considering going back to his mother's there but wonders if staying here might be easier. He said he also is considering going to his aunt's house in [place]. 12/20 Patient remains organized in speech and behavior. Talked about ECT, talked about his goals. Patient said he would like to find working computers, something he has been interested in for years. He has some ambivalence about returning to [place] since he says he and his mom have very different view on things; she very much wanted him to join the [employer] though he did not think it was necessarily a good fit for him. Discussed autism and patient knows that he has had this diagnosis and has worked through it for years. He continues to deny any psychotic symptoms at all. -patient's mother told social studies department chair that after having talked with them on the phone for the past several days she says he sounds like his regular self. 12/21 no change in presentation; no problems with ECT denies any psychiatric symptoms; denies psychotic symptoms, Pt shared ambivalence about returning to live w/ mom in [place]; he agrees that option of staying in skilled nursing here is precarious. Family meeting tuesday -ECT on tuesday and then will re-assess -continue ativan 1 mg TID (to prevent return of symptoms) 12/23 Continue tx 12/24 pt denies any psychotic symptoms. He had ECT today and says he's having trouble with recent memories but can not specify further. Family meeting today. -at this point will hold ECT for Tue; will consider either Tuesday or next week. Pt remains highly vulnerable to re-emergence of catatonic symptoms, however, now complaining of memory issues. 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 Patient shared about psychotic symptoms: In [place] (in the weeks before coming to [facility]): pt acknowledged that he was having hallucinations prior to admission. For several weeks, He says in [place] i was experiencing hallucinations...i heard voices telling me to bring material...[with his mind] and i felt like i had to bring them this material or i would be in big trouble... (not sure who they were). He felt like he had no choice in the matter.. Pt was sometimes sleeping on a park bench and thinks the voices were related to this [facility] (on way to [facility]): When he got to [facility], he had hallucinations it was pretty intense there...the voices were definetly stronger saying this is not reality...the reality you think you know is not real..it's all fake... and voices were putting more pressure on me to do what they wanted...they wanted me to do various stretches...and according to them i was failing and they threatened to disban me.... At this point there was more than one voice talking together about him. He found it very distracting and says this was why he was walking around in circles. Shared that AH told him everyone was a dog which he thought was true... (no VH). That's what i was being told...i was made up of multiple dogs... The voices told him to spin in a pala to leave the realm... which is what police found him doing while in [facility]. At skilled nursing in [facility]: delusions/AH persisted; he had belief that he was a child being disciplined by others...AH telling him to beat himself up for discipline; he hit himself a few times but then realized not to... Looking back now, he knows it was his mind not playing tricks on him. Pt says since being here at the hospital he has not had any psychotic symptoms. He says this was hard to talk about but is comfortable talking about it now. -reviewed diagnosis and treatment; discussed antipsychotic medications including Clozaril and discussed risks/side effects including but not limited to agranulocytosis patient understands and agrees to start Clozaril 12/26 Patient reports that he is good and just thinking about catatonia; patient was amazed at how long it lasted. Discussed again about recent diagnosis of schizophrenia and treatment and patient remains amenable to starting Clozaril. 12/27 change to ECT weekly; pt agrees to increase clozapine 12/28; continue treatment plan; agrees to titrate clozapine; ECT Tuesday; continue Ativan 1 mg t.i.d. 12/29 continue with treatment plan 12/30 continue with treatment plan; ECT tomorrow Tuesday. Moving ECT to once a week and dispo planning continues 12/31 ECT to once a week; continue Ativan for several weeks; dispo planning -will continue to titrate Clozaril with dose of 100 mg; currently patient is without psychotic symptoms however he is also getting ECT. It is difficult to know what dose of clozapine he will need once ECT tapers and is discontinued. Patient will need to be monitored closely. 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 for several weeks and then taper off. Patient is tolerating clozapine and without any psychotic symptoms. Patient has autistic spectrum disorder which is a complicating factor as patient needs help in the community for functioning. Although catatonic symptoms have resolved, patient symptoms were very severe and his progress remains tentative state and he is still at risk for catatonic symptoms to return. Thus patient needs to be carefully monitored by a provider over the next several weeks and needs to have access ECT which will be ongoing. Patient also has schizophrenia. He was started on Clozaril which continues to be titrated; because his psychotic symptoms are mitigated by ECT, he will need continued close observation for psychotic symptoms as well. Patient's situation is currently fragile. He has autism, schizophrenia and is homeless. Applications are in for both [facility] and [facility] however services are not set up yet; social work is working diligently to get him temporarily housed at a family member's nearby where he will have access to ECT. Without housing (and aftercare established), were patient to be discharged today he would be unable to function by himself in the community; he would be vulnerable to predation (as he was in the skilled nursing) and would quickly decompensate. Plan: q5's SECTION 8/8a; court-ordered ECT and medications Increased to Clozapine 50mg qhs (reviewed risks/side effects which patient understands and agrees to; Clozaril chosen since not only is at the least likely to cause catatonia but is sometimes treatment for catatonia) Continue Ativan 1 mg t.i.d. p.o. for both benzo withdrawal and to avoid any return of catatonic symptoms ECT MWF (Court ordered; pt on Section 8/8a) ECT #1 on 12/12 ECT #2 on 12/14 ECT #3 on 12/17 ECT #4 on 12/19 ECT #5 on 12/21 ECT #6 on 01/24 ECT #7 on 12/31 ECT changing to weekly; however next available time is 01/09 Patient educated on: diagnosis, medication risk/benefits and ECT Informed Consent: understands Reason for continued inpatient stay Substantial Risk for: stable for discharge and rapid decompensation Time Spent With Patient Time: Total time managing care of this patient today ____ minutes.
[2024-12-31] MEDS: Multivitamin TABLET 1 TAB PO (09:48)
[2024-12-31] MEDS: LORazepam 1 MG TABLET PO ×3 (09:49→21:13)
[2024-12-31] MEDS: cloZAPine 25 MG TABLET 50 MG PO (21:13)
[2025-01-01] MEDS: Multivitamin TABLET 1 TAB PO (08:39)
[2025-01-01] MEDS: LORazepam 1 MG TABLET PO ×3 (08:39→21:07)
--- NOTE | 2025-01-01 09:38 | HO.PSYCHPN ---
Subjective Subjective Date of Service: 01/01/25 Reason For Visit: catatonia/psychosis/autism Interim History: met with patient; discussed with team Patient wanted to discuss Clozaril; tolerating it well but feels that since he has no symptoms he would like to leave it at 50 mg; teletypewriter installer discussed this lack of symptoms could be due to getting ECT however patient feels it is worth leaving it there for now and then increasing it later on if symptoms return. Instructor Ballroom Dancing agrees; otherwise discussing the high school social studies tutor about dispo plans Mental Status Exam Mental Status Exam Narrative: Pt is alert and oriented; behavior is cooperative, friendly and calm; without any catatonic symptoms; periodically squints his eyes; patient is not in distress; dressed in hospital attire with unkempt hair but adequate hygiene; mood is described as good and affect congruent; eye contact a little avoidant; Speech is minimal but normal rate, volume and prosody and not pressured; no psychomotor agitation/retardation present; thought process is goal directed, concrete; Thought content is on past psychotic symptoms, dx, treatment; no delusional ideations expressed; denies any SI/HI. Denies AVH; not clear if patient appears internally preoccupied Patients insight and judgment adequate and at baseline Diagnostics Vital Signs (24Hr): Vital Signs - 24 hr 12/31/24 19:47 Temperature 99.3 F Pulse Rate 103 H Respiratory Rate 16 Blood Pressure 115/71 Pulse Oximetry 98 Oxygen Delivery Method Room Air BMI result Body Mass Index 30.6 Labs 12/26/24 13:30 12/15/24 07:54 Medications Medications Current Medications Al Hydroxide/Mg Hydroxide (Magnesium Hydrox/Alum Hydrox 30 Ml Oral.Susp) 30 ml PO Q6H PRN PRN Reason: Heartburn/Nausea Clozapine (Clozapine 25 Mg Tablet) 50 mg PO BEDTIME ARNIE Last Admin: 12/31/24 21:13 Dose: 50 mg Lorazepam (Lorazepam 1 Mg Tablet) 1 mg PO TID ARNIE Last Admin: 01/01/25 08:39 Dose: 1 mg Magnesium Hydroxide (Milk Of Magnesia 30 Ml Oral.Susp) 30 ml PO DAILY PRN PRN Reason: Constipation Multivitamins/Vitamin C (Multivitamin Tablet) 1 tab PO DAILY ARNIE Last Admin: 01/01/25 08:39 Dose: 1 tab Allergies Allergies Allergy/AdvReac Type Severity Reaction Status Date / Time No Known Allergies Allergy Verified 11/28/24 13:56 Assessment & Plan Assessment & Plan (1) 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 Pt transferred to medical floor from ICU for continued IV benzodiazepines, IV fluids, TPN. Patient court-ordered treatment including ECT. Once patient received ECT he started coming out of catatonic symptoms Initial Impression: It is difficult to know the etiology of catatonia. People with autism, psychotic disorders, or taking a antipsychotic medications are all at increased risk for catatonia and patient has all 3 risk factors (so it seems). Again from collateral it sounds very possible that catatonic symptoms started in the community in the week prior to this admission. Here at [facility] with IV benzodiazepines,, patient had observed but minimal improvement with IV diazepam; now on IV Ativan with some additional improvement. Discussed case thoroughly with Dr. Lira who agrees that current treatment plan of IV Ativan as both appropriate and necessary treatment to resolve catatonia and prevent malignant catatonia. Instructor Ballroom Dancing has discussed the possibility of patient needing ECT treatment if IV benzos do not adequately resolve symptoms; family remains cautious about ECT but seems to understand that this could be necessary. After receiving collateral from patient's mother (see below), it seems that patient was demonstrating significant changes in his behavior, very different from his normal way of functioning and his normal expressions of autism. That said , some other family members perspective is with discrepancy from mother's collateral so it is not totally clear. But per the mother, The behavioral changes described sound like prodrome of schizophrenia. Patient's father also observed patient responding to internal stimuli, also very different from his normal expressions. Instructor Ballroom Dancing met with and discussed case with patient's father and then talked with patient's mother who currently lives in [place]. Collateral from patient's mother, Cliff, ([phone]) ASD; IEP, honors classes, working; [employer]; graduated [employer]; -around 22 years old, seemed more reclusive and pt started changing -lost job September 2022; missing days, not focused; got fired at next job for going too slow -a year ago, less ADL's, not showering, less motivation, mom thinking more than just ASD since not like this at all in [employer] -Refusing to go to appointments. Got him to ED and psych doctor evaluated but was not able to be Sectioned; mom tried other times to get him to doctor, to hospital, but police felt did not meet criteria to section him... -still minimal ADL's; in Fall 2023 started sleeping outside in the park which again, out of character -Jul 2024 making slow movements, like in slow motion, but able to pull out of it; kept sleeping outside in front of her door, peeing on himself or in bottles. -Episodes of staring off and not responding; intermittently would look agitated -Mom sent him to [facility] to be with father -no hx of drug/alcohol use -had gone 36 hours w/out sleep, but not hyperactive, withdrawn and either quiet on laptop or making lots of food but not eating -no seizure hx -no hx of medication Hospital course: Initially patient admitted to for psychosis; quickly developed severe catatonia, rigidity, not eating or drinking or moving or talking at all. Moved to medical floor and then ICU for IV benzos: 1.Initially Patient was 1st sent from to the medical floor. Due to national shortage of liquid Ativan, He received midazolam 2 mg IV however patient had no response. He was then given diazepam 10 mg IV and within 30 seconds, he relaxed his muscles, folded his arms, turned over on his side and moved his legs, 1st natural movements observed for several days. Instructor Ballroom Dancing collaborated with Dr. Lira and after literature review, both agreed that patient required immediate IV diazepam treatment to prevent patient from progressing towards a malignant catatonia; since patient had demonstrated initial response to diazepam he should be continued on diazepam; the literature recommends diazepam IV infusion at 10mg/500ml saline at 1.25mg/hour; diazepam infusion not available per hospital formulary so agreed to diazepam 2.5 mg IV push q.2 hours. 2)Hospitalist team/medical floor nursing staff felt patient should be observed on ICU for this administration and he was transferred to the ICU. In the ICU, Patient treated with IV Diazepam for about 36 hours with limited effect, with rigidity having resolved (and periodically briefly opening his eyes) but other symptoms of catatonia remaining including, not following verbal commands and negativism (resistance of examine his manipulation with equal strength). Team agreed to switch from diazepam to Ativan 2 mg IV q.i.d.. After about 12 hours patient improved some more, responding to noxious stimuli/sternal rub and grimaced and actively pushed examiner's hand away. After about 36 hours give or take, dose increase to Ativan 2 mg IV q4H. Patient able to be transferred back to the medical floor. 3) patient on medical floor receiving Ativan 2 mg IV q4h. He remains in the bed with his eyes closed, not responding to verbal commands but is overall moving all limbs more naturally on his own. Negative his remains. ICU 12/06 Patient remains with same minimal improvement observed when starting diazepam; he is moving on his own a little more naturally though still minimally. Will appeared to be trying to open his eyes sometimes when his name is called. Continues with negativism however otherwise is not rigid. Instructor Ballroom Dancing met with patient's father and stepmother Debra. Initially family expressed dissatisfaction with treatment and wanted patient transferred to [facility]. Dr. Jiang reached out to [facility] to discuss case and they declined to take patient at this time, not having a bed available and also not being able to provide ECT should patient require it. Patient's family accepted this. Instructor Ballroom Dancing again spent about an hour providing education on catatonia, its causes and its treatments, including ECT; explained ECT procedure as well. Dr. Lira also provided the family with printed out literature regarding these topics, including ECT. After discussion, patient's family seemed to agree with current treatment plan of continuing with benzodiazepines. Since patient had only a minimal response to IV diazepam, decision was made to switch to IV Ativan to see if this would be more effective; also discussed with family who agreed with this plan. Instructor Ballroom Dancing again offered to talk with family member who is a neurologist and gave them teletypewriter installer's contact information to pass along. 12/07 some change in presentation as patient now responsive to noxious stimuli/chest rub, grimacing and pushing examiner's hand away. Instructor Ballroom Dancing and Dr. Lira agree this is improvement and evidence that Ativan is helping (progression: rigidity and no response to noxious stimuli -- progressed to absence of rigidity but still no response to noxious stimuli--progressed to now, pt with active response to noxious stimuli). -Literature reviewed and after team discussion agreed to increase IV Ativan to 2 mg q.4h -brain MRI unremarkable -Discussed with Dr. Jiang who felt patient could be safely transferred back to medical floor out of ICU; family informed Medical floor: 12/08 patient remains catatonic, not opening his eyes, not responding to any verbal interactions; remains with negativism; however is moving increasingly or naturally on his own. Discussed with dr. Ernandez. -continue with Ativan 2 mg q4h for now 12/09 Last night/early AM pt spiked fever 105, tachy, tachypneic. Treated with abx, cooling blanket, rectal acetaminophen; CXR negative. Temp came down and pt only mildly tachy; RR 18. Also...This morning, pt woke up, talked with Dr. Ernandez and asked for a sandwich; a little later with nurse, he knew his name, and that [facility]. Later in day, on approach, pt sleeping, sometimes yawning; did not wake up to speaking his name; teletypewriter installer did not do sternal rub -tried to test for rigidity but not able to assess since pt's remains w/ negativism (catatonic symptom of resisting examiner w/ equal force) but pt appears to be moving around easily enough on his own. -did not really at risk for NMS since pt only on Diazepam T:99.4 (on cooling blanket) BP:112/68 O2 96% HR 98 RR: 18 lips appear swollen UA unremarkable CXR unremarkable negative covid/rsv/flu Instructor Ballroom Dancing discussed case with Dr. Lira; teletypewriter installer Discussed case with Dr. Ernandez regarding blood cultures/LP; at this time Dr. Ernandez would like to continue monitoring but advance to LP if patient does not improve. Hospital ran out of Ativan; will switch back to diazepam Impression: Despite the fact that patient spiked a fever and was tachy and tachypneic, the fact that he woke up, was talking, interacting oriented to self and place was very encouraging. Ativan seems to have been more effective than diazepam and remains preferred, however diazepam has had some positive effect. Patient being worked up for infectious etiology, though he does not appear ill looking. It is possible that fever, increased heart rate respiratory rate was a brief crossing into a malignant catatonia; will continue with current treatment plan; ECT remains consider most effective treatment however need court order 12/11 LP so far mostly negative with a few parameters still pending; Afebrile and vitals WNL Patient remains with eyes closed but is moving his body and head around on his own; sometimes role in his head around and around. Still does not respond to verbal stimuli. Waxy flexibility noted; initially only minimal negativeism however this increased with examiners manipulations. Has not open his eyes or talked since Friday 12/08 (per father patient also talked with his mother on the phone, talked with his grandmother). -discussed with pharmacist and some additional Ativan has been procured though in a very limited supply; will restart Ativan IV -of note diazepam infusion is not possible per pharmacy -would also consider memantine, though must be taken p.o. Impression: Patient has certainly improved with IV benzodiazepines, lorazepam seeming to be the most effective. However he remains with severe catatonia. Although he open his eyes and spoke briefly, he has not done so for 3 days and for the past 3 days he has remained with eyes closed, nonverbal, not responding to verbal cues, not eating, not drinking. Thus far, workup for infection has been unremarkable, with only a few LP labs still pending. Because no infectious process can be identified patient is episode of fever, tachycardia and tachypnea remain concerning for possible brief transitioned into malignant catatonia. Currently patient is afebrile and vitals WNL however the risks increase the longer catatonia persists and ECT remains the most viable treatment option -court scheduled for today 12/12 ECT today. Discussed case in detail with Dr. Lira who agreed with proceeding to ECT for following reasons: 1. He remains with Severe catatonia; he is not eating, drinking, talking or opening his eyes, responding to verbal stimuli or getting out of bed; he cannot communicate or receive information; he continues to need IV fluids, nutrition without which he would go into organ failure and . 2. This past weekend, he became febrile with a temperature spiking to 105 degrees; he was tachycardic to 133, tachypneic to 22 RR? temperature lowered but he remained febrile for the next day...... After thorough workup which included an LP, chest x-ray, UA, RSV/COVID/flu? no infectious process identified, other than possible sinusitis. Was this episode of autonomic dysregulation a brief crossover into malignant catatonia? Concern for patients condition to turn malignant increases the longer catatonia persists. 3. The longer a person remains catatonic the harder it becomes to resolve it. Prolonged catatonia correlates with higher risk of serious medical complications, including ?and include the risks associated with continuous IV, Sultana, and being bed bound. A person can rapidly deteriorate despite being on benzodiaepines. 4. Literature recommends a Switch to ECT when: Lorazepam (Ativan) fails after 3?5 days of adequate dosing (e.g., 6?12 mg/day) to prevent poor outcome (Electroconvulsive therapy in catatonic patients: Efficacy and predictors of response (2015)) -Will continue with ECT WMF Will treat with Diazepam 5mg IV TID to treat for Benzo withdrawal and to treat catatonia; as pt improves, will taper benzo 12/13 Patient open his eyes, started answering questions by nodding his head and remained so throughout the day. Instructor Ballroom Dancing explained patient's condition and treatment though doubtful patient understood much of it. Instructor Ballroom Dancing gave him 2 doses of IV Ativan 2 mg which seemed to help because Later on teletypewriter installer was informed the patient was again talking, eating and drinking. ECT tomorrow but if patient remains much improved, maybe able to return to the psychiatric unit -discussed case with Dr. Serrano and Dr. Lira and will continue benzos both to help make sure catatonia does not return and to avoid benzo withdrawal RETURNED TO PSYCH UNIT M5 (12/14): Patient significantly improved, walking, talking, eating, drinking and moving about. Patient was able to return to the psych floor. Plan is to continue ECT doing better on ativan 1mg tid, on 1:1 eating- some odd behaviors but no longer fully catatonic! 12/16 - dc 1:1, pt requested ensure with meals- maybe be rebound hunger from not eating while catatonic. 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 Patient eating, drinking, talking, walking and interacting appropriately (keeping in mind ASD) Patient does not remember any of the events preceding this admission or during until getting to the psychiatric floor; catatonia and treatment explained to patient and he is amenable to continuing with ECT and benzodiazepines. Patient says he feels back to his regular self in his father was present, says he thinks so too. Patient denies any psychotic symptoms at all Although patient is much improved, he remained significantly vulnerable to return of catatonic symptoms. Discussed with Dr. Lira who agrees to Continue with ECT on 12/19 and 12/21 so as to prevent any return of catatonic symptoms; will continue with Ativan but likely further taper at some point. Will continue to assess. Regarding guardianship, at this time teletypewriter installer does not see a need for patient to have a guardian. Currently however patient has no outpatient providers and no where to live; where patient to be discharged now he would likely become quickly impaired 12/19 Patient says he is doing well. He remains feeling like his normal self. Patient continues to deny any AH or paranoid ideations and says he does not remember having any of these before. He says he finds the atmosphere on the unit to be pretty good and has no complaints. Patient asked about ECT, how much more he is going to get and agrees to treatment plan. Discussed post discharge and patient said he liked living in [place] and is considering going back to his mother's there but wonders if staying here might be easier. He said he also is considering going to his aunt's house in [place]. 12/20 Patient remains organized in speech and behavior. Talked about ECT, talked about his goals. Patient said he would like to find working computers, something he has been interested in for years. He has some ambivalence about returning to [place] since he says he and his mom have very different view on things; she very much wanted him to join the [employer] though he did not think it was necessarily a good fit for him. Discussed autism and patient knows that he has had this diagnosis and has worked through it for years. He continues to deny any psychotic symptoms at all. -patient's mother told high school social studies tutor that after having talked with them on the phone for the past several days she says he sounds like his regular self. 12/21 no change in presentation; no problems with ECT denies any psychiatric symptoms; denies psychotic symptoms, Pt shared ambivalence about returning to live w/ mom in [place]; he agrees that option of staying in senior living here is precarious. Family meeting tuesday -ECT on tuesday and then will re-assess -continue ativan 1 mg TID (to prevent return of symptoms) 12/23 Continue tx 12/24 pt denies any psychotic symptoms. He had ECT today and says he's having trouble with recent memories but can not specify further. Family meeting today. -at this point will hold ECT for Tue; will consider either Tuesday or next week. Pt remains highly vulnerable to re-emergence of catatonic symptoms, however, now complaining of memory issues. 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 Patient shared about psychotic symptoms: In [place] (in the weeks before coming to [facility]): pt acknowledged that he was having hallucinations prior to admission. For several weeks, He says in [place] i was experiencing hallucinations...i heard voices telling me to bring material...[with his mind] and i felt like i had to bring them this material or i would be in big trouble... (not sure who they were). He felt like he had no choice in the matter.. Pt was sometimes sleeping on a park bench and thinks the voices were related to this [facility] (on way to [facility]): When he got to [facility], he had hallucinations it was pretty intense there...the voices were definetly stronger saying this is not reality...the reality you think you know is not real..it's all fake... and voices were putting more pressure on me to do what they wanted...they wanted me to do various stretches...and according to them i was failing and they threatened to disban me.... At this point there was more than one voice talking together about him. He found it very distracting and says this was why he was walking around in circles. Shared that AH told him everyone was a dog which he thought was true... (no VH). That's what i was being told...i was made up of multiple dogs... The voices told him to spin in a qawalangin to leave the realm... which is what police found him doing while in [facility]. At senior living in [facility]: delusions/AH persisted; he had belief that he was a child being disciplined by others...AH telling him to beat himself up for discipline; he hit himself a few times but then realized not to... Looking back now, he knows it was his mind not playing tricks on him. Pt says since being here at the hospital he has not had any psychotic symptoms. He says this was hard to talk about but is comfortable talking about it now. -reviewed diagnosis and treatment; discussed antipsychotic medications including Clozaril and discussed risks/side effects including but not limited to agranulocytosis patient understands and agrees to start Clozaril 12/26 Patient reports that he is good and just thinking about catatonia; patient was amazed at how long it lasted. Discussed again about recent diagnosis of schizophrenia and treatment and patient remains amenable to starting Clozaril. 12/27 change to ECT weekly; pt agrees to increase clozapine 12/28; continue treatment plan; agrees to titrate clozapine; ECT Tuesday; continue Ativan 1 mg t.i.d. 12/29 continue with treatment plan 12/30 continue with treatment plan; ECT tomorrow Tuesday. Moving ECT to once a week and dispo planning continues 5/19 ECT to once a week; continue Ativan for several weeks; dispo planning -will continue to titrate Clozaril with dose of 100 mg; currently patient is without psychotic symptoms however he is also getting ECT. It is difficult to know what dose of clozapine he will need once ECT tapers and is discontinued. Patient will need to be monitored closely. 01/01 patient asks for Clozaril to stay at 50 mg since no symptoms; understands that ECT maybe keeps in symptoms at [place] however would like to hold off increasing for now Regarding ongoing treatment: Thankfully catatonic symptoms have fully resolved; will continue with ECT once a week; will continue Ativan 1 mg t.i.d. for several weeks and then taper off. Patient is tolerating clozapine and without any psychotic symptoms. Patient has autistic spectrum disorder which is a complicating factor as patient needs help in the community for functioning. Although catatonic symptoms have resolved, patient symptoms were very severe and his progress remains tentative state and he is still at risk for catatonic symptoms to return. Thus patient needs to be carefully monitored by a provider over the next several weeks and needs to have access ECT which will be ongoing. Patient also has schizophrenia. He was started on Clozaril which continues to be titrated; because his psychotic symptoms are mitigated by ECT, he will need continued close observation for psychotic symptoms as well. Patient's situation is currently fragile. He has autism, schizophrenia and is homeless. Applications are in for both [facility] and [facility] however services are not set up yet; social work is working diligently to get him temporarily housed at a family member's nearby where he will have access to ECT. Without housing (and aftercare established), were patient to be discharged today he would be unable to function by himself in the community; he would be vulnerable to predation (as he was in the senior living) and would quickly decompensate. Plan: q5's SECTION 8/; court-ordered ECT and medications Continue Clozapine 50mg qhs (reviewed risks/side effects which patient understands and agrees to; Clozaril chosen since not only is at the least likely to cause catatonia but is sometimes treatment for catatonia) Continue Ativan 1 mg t.i.d. p.o. for both benzo withdrawal and to avoid any return of catatonic symptoms ECT MWF (Court ordered; pt on Section 8/8a) ECT #1 on 4/30 ECT #2 on 12/14 ECT #3 on 12/17 ECT #4 on 12/19 ECT #5 on 12/21 ECT #6 on 01/24 ECT #7 on 12/31 ECT changing to weekly; however next available time is 01/09 Patient educated on: diagnosis, medication risk/benefits and ECT Informed Consent: understands Reason for continued inpatient stay Substantial Risk for: stable for discharge Time Spent With Patient Time: Total time managing care of this patient today ____ minutes.
[2025-01-01] MEDS: cloZAPine 25 MG TABLET 50 MG PO (21:07)
[2025-01-01 22:00] VITALS: BP 129/71; PULSE 97; TEMP 37.3; O2SAT 97
[2025-01-02 07:49] VITALS: BP 134/68; PULSE 111; TEMP 36.9; O2SAT 99
[2025-01-02 07:55] LABS: Neut%MD 24.6 %; Neutrophils Absolute Auto 1.1 x10*3/uL (2.0-8.3); WBCANC 4.5 X10*3/uL
[2025-01-02] MEDS: LORazepam 1 MG TABLET PO ×3 (09:14→21:12)
[2025-01-02] MEDS: Multivitamin TABLET 1 TAB PO (09:14)
--- NOTE | 2025-01-02 11:01 | P.PNPSI_ITS ---
Subjective Subjective Date of Service: 01/02/25 Reason For Visit: catatonia/psychosis/autism Interim History: Met with patient; discussed with team; reviewed labs Discussed with patient mild neutropenia from clozapine; agrees to continue for now and for follow up labs Mental Status Exam Mental Status Exam Narrative: Pt is alert and oriented; behavior is cooperative, friendly and calm; without any catatonic symptoms; periodically squints his eyes; patient is not in distress; dressed in hospital attire with unkempt hair but adequate hygiene; mood is described as good and affect congruent; eye contact a little avoidant; Speech is minimal but normal rate, volume and prosody and not pressured; no psychomotor agitation/retardation present; thought process is goal directed, concrete; Thought content is on past psychotic symptoms, dx, treatment; no delusional ideations expressed; denies any SI/HI. Denies AVH; not clear if patient appears internally preoccupied Patients insight and judgment adequate and at baseline Diagnostics Vital Signs (24Hr): Vital Signs - 24 hr 01/01/25 22:00 01/02/25 07:49 Temperature 99.2 F 98.5 F Pulse Rate 97 111 H Blood Pressure 129/71 134/68 Pulse Oximetry 97 99 Oxygen Delivery Method Room Air Room Air BMI result Body Mass Index 30.6 Labs 12/26/24 13:30 12/15/24 07:54 Labs: Laboratory Results - last 48 hr 01/02/25 07:24 Absolute Neuts (auto) 1.1 L Medications Medications Current Medications Al Hydroxide/Mg Hydroxide (Magnesium Hydrox/Alum Hydrox 30 Ml Oral.Susp) 30 ml PO Q6H PRN PRN Reason: Heartburn/Nausea Clozapine (Clozapine 25 Mg Tablet) 50 mg PO BEDTIME ARNIE Last Admin: 01/01/25 21:07 Dose: 50 mg Lorazepam (Lorazepam 1 Mg Tablet) 1 mg PO TID ARNIE Last Admin: 01/02/25 09:14 Dose: 1 mg Magnesium Hydroxide (Milk Of Magnesia 30 Ml Oral.Susp) 30 ml PO DAILY PRN PRN Reason: Constipation Multivitamins/Vitamin C (Multivitamin Tablet) 1 tab PO DAILY ARNIE Last Admin: 01/02/25 09:14 Dose: 1 tab Allergies Allergies Allergy/AdvReac Type Severity Reaction Status Date / Time No Known Allergies Allergy Verified 11/28/24 13:56 Assessment & Plan Assessment & Plan (1) 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 Pt transferred to medical floor from ICU for continued IV benzodiazepines, IV fluids, TPN. Patient court-ordered treatment including ECT. Once patient received ECT he started coming out of catatonic symptoms Initial Impression: It is difficult to know the etiology of catatonia. People with autism, psychotic disorders, or taking a antipsychotic medications are all at increased risk for catatonia and patient has all 3 risk factors (so it seems). Again from collateral it sounds very possible that catatonic symptoms started in the community in the week prior to this admission. Here at [facility] with IV benzodiazepines,, patient had observed but minimal improvement with IV diazepam; now on IV Ativan with some additional improvement. Discussed case thoroughly with Dr. Lira who agrees that current treatment plan of IV Ativan as both appropriate and necessary treatment to resolve catatonia and prevent malignant catatonia. Maple Syrup Maker has discussed the possibility of patient needing ECT treatment if IV benzos do not adequately resolve symptoms; family remains cautious about ECT but seems to understand that this could be necessary. After receiving collateral from patient's mother (see below), it seems that patient was demonstrating significant changes in his behavior, very different from his normal way of functioning and his normal expressions of autism. That said , some other family members perspective is with discrepancy from mother's collateral so it is not totally clear. But per the mother, The behavioral changes described sound like prodrome of schizophrenia. Patient's father also observed patient responding to internal stimuli, also very different from his normal expressions. Maple Syrup Maker met with and discussed case with patient's father and then talked with patient's mother who currently lives in [place]. Collateral from patient's mother, Cliff, ([phone]) ASD; IEP, honors classes, working; [employer]; graduated [employer]; -around 22 years old, seemed more reclusive and pt started changing -lost job September 2022; missing days, not focused; got fired at next job for going too slow -a year ago, less ADL's, not showering, less motivation, mom thinking more than just ASD since not like this at all in [employer] -Refusing to go to appointments. Got him to ED and psych doctor evaluated but was not able to be Sectioned; mom tried other times to get him to doctor, to hospital, but police felt did not meet criteria to section him... -still minimal ADL's; in Fall 2023 started sleeping outside in the park which again, out of character -Jul 2024 making slow movements, like in slow motion, but able to pull out of it; kept sleeping outside in front of her door, peeing on himself or in bottles. -Episodes of staring off and not responding; intermittently would look agitated -Mom sent him to [facility] to be with father -no hx of drug/alcohol use -had gone 36 hours w/out sleep, but not hyperactive, withdrawn and either quiet on laptop or making lots of food but not eating -no seizure hx -no hx of medication Hospital course: Initially patient admitted to for psychosis; quickly developed severe catatonia, rigidity, not eating or drinking or moving or talking at all. Moved to medical floor and then ICU for IV benzos: 1.Initially Patient was 1st sent from to the medical floor. Due to national shortage of liquid Ativan, He received midazolam 2 mg IV however patient had no response. He was then given diazepam 10 mg IV and within 30 seconds, he relaxed his muscles, folded his arms, turned over on his side and moved his legs, 1st natural movements observed for several days. Maple Syrup Maker collaborated with Dr. Lira and after literature review, both agreed that patient required immediate IV diazepam treatment to prevent patient from progressing towards a malignant catatonia; since patient had demonstrated initial response to diazepam he should be continued on diazepam; the literature recommends diazepam IV infusion at 10mg/500ml saline at 1.25mg/hour; diazepam infusion not available per hospital formulary so agreed to diazepam 2.5 mg IV push q.2 hours. 2)Hospitalist team/medical floor nursing staff felt patient should be observed on ICU for this administration and he was transferred to the ICU. In the ICU, Patient treated with IV Diazepam for about 36 hours with limited effect, with rigidity having resolved (and periodically briefly opening his eyes) but other symptoms of catatonia remaining including, not following verbal commands and negativism (resistance of examine his manipulation with equal strength). Team agreed to switch from diazepam to Ativan 2 mg IV q.i.d.. After about 12 hours patient improved some more, responding to noxious stimuli/sternal rub and grimaced and actively pushed examiner's hand away. After about 36 hours give or take, dose increase to Ativan 2 mg IV q4H. Patient able to be transferred back to the medical floor. 3) patient on medical floor receiving Ativan 2 mg IV q4h. He remains in the bed with his eyes closed, not responding to verbal commands but is overall moving all limbs more naturally on his own. Negative his remains. ICU 12/06 Patient remains with same minimal improvement observed when starting diazepam; he is moving on his own a little more naturally though still minimally. Will appeared to be trying to open his eyes sometimes when his name is called. Continues with negativism however otherwise is not rigid. Maple Syrup Maker met with patient's father and stepmother Debra. Initially family expressed dissatisfaction with treatment and wanted patient transferred to [facility]. Dr. Jiang reached out to [facility] to discuss case and they declined to take patient at this time, not having a bed available and also not being able to provide ECT should patient require it. Patient's family accepted this. Maple Syrup Maker again spent about an hour providing education on catatonia, its causes and its treatments, including ECT; explained ECT procedure as well. Dr. Lira also provided the family with printed out literature regarding these topics, including ECT. After discussion, patient's family seemed to agree with current treatment plan of continuing with benzodiazepines. Since patient had only a minimal response to IV diazepam, decision was made to switch to IV Ativan to see if this would be more effective; also discussed with family who agreed with this plan. Maple Syrup Maker again offered to talk with family member who is a neurologist and gave them typewriter ribbon winder's contact information to pass along. 12/07 some change in presentation as patient now responsive to noxious stimuli/chest rub, grimacing and pushing examiner's hand away. Maple Syrup Maker and Dr. Lira agree this is improvement and evidence that Ativan is helping (progression: rigidity and no response to noxious stimuli -- progressed to absence of rigidity but still no response to noxious stimuli--progressed to now, pt with active response to noxious stimuli). -Literature reviewed and after team discussion agreed to increase IV Ativan to 2 mg q.4h -brain MRI unremarkable -Discussed with Dr. Jiang who felt patient could be safely transferred back to medical floor out of ICU; family informed Medical floor: 12/08 patient remains catatonic, not opening his eyes, not responding to any verbal interactions; remains with negativism; however is moving increasingly or naturally on his own. Discussed with dr. Ernandez. -continue with Ativan 2 mg q4h for now 12/09 Last night/early AM pt spiked fever 105, tachy, tachypneic. Treated with abx, cooling blanket, rectal acetaminophen; CXR negative. Temp came down and pt only mildly tachy; RR 18. Also...This morning, pt woke up, talked with Dr. Ernandez and asked for a sandwich; a little later with nurse, he knew his name, and that he was at [facility]. Later in day, on approach, pt sleeping, sometimes yawning; did not wake up to speaking his name; typewriter ribbon winder did not do sternal rub -tried to test for rigidity but not able to assess since pt's remains w/ negativism (catatonic symptom of resisting examiner w/ equal force) but pt appears to be moving around easily enough on his own. -did not really at risk for NMS since pt only on Diazepam T:99.4 (on cooling blanket) BP:112/68 O2 96% HR 98 RR: 18 lips appear swollen UA unremarkable CXR unremarkable negative covid/rsv/flu Maple Syrup Maker discussed case with Dr. Lira; typewriter ribbon winder Discussed case with Dr. Ernandez regarding blood cultures/LP; at this time Dr. Ernandez would like to continue monitoring but advance to LP if patient does not improve. Hospital ran out of Ativan; will switch back to diazepam Impression: Despite the fact that patient spiked a fever and was tachy and tachypneic, the fact that he woke up, was talking, interacting oriented to self and place was very encouraging. Ativan seems to have been more effective than diazepam and remains preferred, however diazepam has had some positive effect. Patient being worked up for infectious etiology, though he does not appear ill looking. It is possible that fever, increased heart rate respiratory rate was a brief crossing into a malignant catatonia; will continue with current treatment plan; ECT remains consider most effective treatment however need court order 12/11 LP so far mostly negative with a few parameters still pending; Afebrile and vitals WNL Patient remains with eyes closed but is moving his body and head around on his own; sometimes role in his head around and around. Still does not respond to verbal stimuli. Waxy flexibility noted; initially only minimal negativeism however this increased with examiners manipulations. Has not open his eyes or talked since Friday 12/08 (per father patient also talked with his mother on the phone, talked with his grandmother). -discussed with pharmacist and some additional Ativan has been procured though in a very limited supply; will restart Ativan IV -of note diazepam infusion is not possible per pharmacy -would also consider memantine, though must be taken p.o. Impression: Patient has certainly improved with IV benzodiazepines, lorazepam seeming to be the most effective. However he remains with severe catatonia. Although he open his eyes and spoke briefly, he has not done so for 3 days and for the past 3 days he has remained with eyes closed, nonverbal, not responding to verbal cues, not eating, not drinking. Thus far, workup for infection has been unremarkable, with only a few LP labs still pending. Because no infectious process can be identified patient is episode of fever, tachycardia and tachypnea remain concerning for possible brief transitioned into malignant catatonia. Currently patient is afebrile and vitals WNL however the risks increase the longer catatonia persists and ECT remains the most viable treatment option -court scheduled for today 12/12 ECT today. Discussed case in detail with Dr. Lira who agreed with proceeding to ECT for following reasons: 1. He remains with Severe catatonia; he is not eating, drinking, talking or opening his eyes, responding to verbal stimuli or getting out of bed; he cannot communicate or receive information; he continues to need IV fluids, nutrition without which he would go into organ failure and . 2. This past weekend, he became febrile with a temperature spiking to 105 degrees; he was tachycardic to 133, tachypneic to 22 RR? temperature lowered but he remained febrile for the next day...... After thorough workup which included an LP, chest x-ray, UA, RSV/COVID/flu? no infectious process identified, other than possible sinusitis. Was this episode of autonomic dysregulation a brief crossover into malignant catatonia? Concern for patients condition to turn malignant increases the longer catatonia persists. 3. The longer a person remains catatonic the harder it becomes to resolve it. Prolonged catatonia correlates with higher risk of serious medical complications, including ?and include the risks associated with continuous IV, [place], and being bed bound. A person can rapidly deteriorate despite being on benzodiaepines. 4. Literature recommends a Switch to ECT when: Lorazepam (Ativan) fails after 3?5 days of adequate dosing (e.g., 6?12 mg/day) to prevent poor outcome (Electroconvulsive therapy in catatonic patients: Efficacy and predictors of response (2015)) -Will continue with ECT WMF Will treat with Diazepam 5mg IV TID to treat for Benzo withdrawal and to treat catatonia; as pt improves, will taper benzo 12/13 Patient open his eyes, started answering questions by nodding his head and remained so throughout the day. Maple Syrup Maker explained patient's condition and treatment though doubtful patient understood much of it. Maple Syrup Maker gave him 2 doses of IV Ativan 2 mg which seemed to help because Later on typewriter ribbon winder was informed the patient was again talking, eating and drinking. ECT tomorrow but if patient remains much improved, maybe able to return to the psychiatric unit -discussed case with Dr. Serrano and Dr. Lira and will continue benzos both to help make sure catatonia does not return and to avoid benzo withdrawal RETURNED TO PSYCH UNIT M5 (12/14): Patient significantly improved, walking, talking, eating, drinking and moving about. Patient was able to return to the psych floor. Plan is to continue ECT doing better on ativan 1mg tid, on 1:1 eating- some odd behaviors but no longer fully catatonic! 12/16 - dc 1:1, pt requested ensure with meals- maybe be rebound hunger from not eating while catatonic. 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 Patient eating, drinking, talking, walking and interacting appropriately (keeping in mind ASD) Patient does not remember any of the events preceding this admission or during until getting to the psychiatric floor; catatonia and treatment explained to patient and he is amenable to continuing with ECT and benzodiazepines. Patient says he feels back to his regular self in his father was present, says he thinks so too. Patient denies any psychotic symptoms at all Although patient is much improved, he remained significantly vulnerable to return of catatonic symptoms. Discussed with Dr. Lira who agrees to Continue with ECT on 12/19 and 12/21 so as to prevent any return of catatonic symptoms; will continue with Ativan but likely further taper at some point. Will continue to assess. Regarding guardianship, at this time typewriter ribbon winder does not see a need for patient to have a guardian. Currently however patient has no outpatient providers and no where to live; where patient to be discharged now he would likely become quickly impaired 12/19 Patient says he is doing well. He remains feeling like his normal self. Patient continues to deny any AH or paranoid ideations and says he does not remember having any of these before. He says he finds the atmosphere on the unit to be pretty good and has no complaints. Patient asked about ECT, how much more he is going to get and agrees to treatment plan. Discussed post discharge and patient said he liked living in [place] and is considering going back to his mother's there but wonders if staying here might be easier. He said he also is considering going to his aunt's house in [place]. 12/20 Patient remains organized in speech and behavior. Talked about ECT, talked about his goals. Patient said he would like to find working computers, something he has been interested in for years. He has some ambivalence about returning to [place] since he says he and his mom have very different view on things; she very much wanted him to join the [employer] though he did not think it was necessarily a good fit for him. Discussed autism and patient knows that he has had this diagnosis and has worked through it for years. He continues to deny any psychotic symptoms at all. -patient's mother told social services manager that after having talked with them on the phone for the past several days she says he sounds like his regular self. 12/21 no change in presentation; no problems with ECT denies any psychiatric symptoms; denies psychotic symptoms, Pt shared ambivalence about returning to live w/ mom in [place]; he agrees that option of staying in long term here is precarious. Family meeting tuesday -ECT on tuesday and then will re-assess -continue ativan 1 mg TID (to prevent return of symptoms) 12/23 Continue tx 12/24 pt denies any psychotic symptoms. He had ECT today and says he's having trouble with recent memories but can not specify further. Family meeting today. -at this point will hold ECT for Tue; will consider either Tuesday or next week. Pt remains highly vulnerable to re-emergence of catatonic symptoms, however, now complaining of memory issues. 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 Patient shared about psychotic symptoms: In [place] (in the weeks before coming to [facility]): pt acknowledged that he was having hallucinations prior to admission. For several weeks, He says in [place] i was experiencing hallucinations...i heard voices telling me to bring material...[with his mind] and i felt like i had to bring them this material or i would be in big trouble... (not sure who they were). He felt like he had no choice in the matter.. Pt was sometimes sleeping on a park bench and thinks the voices were related to this [facility] (on way to [facility]): When he got to [facility], he had hallucinations it was pretty intense there...the voices were definetly stronger saying this is not reality...the reality you think you know is not real..it's all fake... and voices were putting more pressure on me to do what they wanted...they wanted me to do various stretches...and according to them i was failing and they threatened to disban me.... At this point there was more than one voice talking together about him. He found it very distracting and says this was why he was walking around in circles. Shared that AH told him everyone was a dog which he thought was true... (no VH). That's what i was being told...i was made up of multiple dogs... The voices told him to spin in a [place] to leave the realm... which is what police found him doing while in [facility]. At long term in [facility]: delusions/AH persisted; he had belief that he was a child being disciplined by others...AH telling him to beat himself up for discipline; he hit himself a few times but then realized not to... Looking back now, he knows it was his mind not playing tricks on him. Pt says since being here at the hospital he has not had any psychotic symptoms. He says this was hard to talk about but is comfortable talking about it now. -reviewed diagnosis and treatment; discussed antipsychotic medications including Clozaril and discussed risks/side effects including but not limited to agranulocytosis patient understands and agrees to start Clozaril 12/26 Patient reports that he is good and just thinking about catatonia; patient was amazed at how long it lasted. Discussed again about recent diagnosis of schizophrenia and treatment and patient remains amenable to starting Clozaril. 12/27 change to ECT weekly; pt agrees to increase clozapine 12/28; continue treatment plan; agrees to titrate clozapine; ECT Tuesday; continue Ativan 1 mg t.i.d. 12/29 continue with treatment plan 12/30 continue with treatment plan; ECT tomorrow Tuesday. Moving ECT to once a week and dispo planning continues 12/31 ECT to once a week; continue Ativan for several weeks; dispo planning -will continue to titrate Clozaril with dose of 100 mg; currently patient is without psychotic symptoms however he is also getting ECT. It is difficult to know what dose of clozapine he will need once ECT tapers and is discontinued. Patient will need to be monitored closely. 01/01 patient asks for Clozaril to stay at 50 mg since no symptoms; understands that ECT maybe keeps in symptoms at [facility] however would like to hold off increasing for now 01/02 patients ANC was 1.5 on 12/26 and today 01/02 it is 1.1 [address] patient in mild neutropenia; recommendations are to continue treatment but increase monitoring to 3 times a week. -hopefully ANC will stabilize; if not, will need to choose another antipsychotic medication which will be tricky given patients vulnerability to catatonia Review of guidlines in [id number]: -Mild neutropenia (absolute neutrophil count [ANC]: 1000 to 1499/microL) ? Continue treatment but increase monitoring frequency to three times per week. -Moderate neutropenia (ANC: 500 to 999/microL) ? Interrupt?clozapine increase monitoring to daily until ANC is 1000/microL at which point clozapine can be reinstituted. -Severe neutropenia/agranulocytosis (ANC: <500/microL) ? Discontinue?clozapine; .Rechallenge should only occur if the benefits outweigh the risks, in consultation with hematology. 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 for several weeks and then taper off. Patient is tolerating clozapine and without any psychotic symptoms. Patient has autistic spectrum disorder which is a complicating factor as patient needs help in the community for functioning. Although catatonic symptoms have resolved, patient symptoms were very severe and his progress remains tentative state and he is still at risk for catatonic symptoms to return. Thus patient needs to be carefully monitored by a provider over the next several weeks and needs to have access ECT which will be ongoing. Patient also has schizophrenia. He was started on Clozaril which continues to be titrated; because his psychotic symptoms are mitigated by ECT, he will need continued close observation for psychotic symptoms as well. Patient's situation is currently fragile. He has autism, schizophrenia and is homeless. Applications are in for both [facility] and [facility] however services are not set up yet; social work is working diligently to get him temporarily housed at a family member's nearby where he will have access to ECT. Without housing (and aftercare established), were patient to be discharged today he would be unable to function by himself in the community; he would be vulnerable to predation (as he was in the long term) and would quickly decompensate. Plan: q5's SECTION 8/8a; court-ordered ECT and medications Continue Clozapine 50mg qhs (reviewed risks/side effects which patient understands and agrees to; Clozaril chosen since not only is at the least likely to cause catatonia but is sometimes treatment for catatonia) Continue Ativan 1 mg t.i.d. p.o. for both benzo withdrawal and to avoid any return of catatonic symptoms ECT MWF (Court ordered; pt on Section 8/) ECT #1 on 12/12 ECT #2 on 12/14 ECT #3 on 12/17 ECT #4 on 12/19 ECT #5 on 12/21 ECT #6 on 01/24 ECT #7 on 12/31 ECT changing to weekly; however next available time is 01/09 Patient educated on: diagnosis and medication risk/benefits Informed Consent: understands Reason for continued inpatient stay Substantial Risk for: med/psych decompensation Time Spent With Patient Time: Total time managing care of this patient today ____ minutes.
[2025-01-02 19:38] VITALS: BP 147/73; PULSE 95; RESP 16; TEMP 37; O2SAT 99
[2025-01-02] MEDS: cloZAPine 25 MG TABLET 50 MG PO (21:12)
[2025-01-03 07:00] VITALS: BMI 32.6
[2025-01-03 07:53] VITALS: BP 116/54; PULSE 99; RESP 18; TEMP 36.9; O2SAT 99
[2025-01-03] MEDS: Multivitamin TABLET 1 TAB PO (07:57)
[2025-01-03] MEDS: LORazepam 1 MG TABLET PO ×3 (07:57→20:51)
--- NOTE | 2025-01-03 11:23 | HO.PSYCHPN ---
Subjective Subjective Date of Service: 01/03/25 Reason For Visit: catatonia/psychosis/autism Interim History: Active on unit, attending groups. guarded. pt reports feeling good today; pt stated, I feel like the medications are working well . He reports sleeping well last night. denies SI/HI/VH/AH. Continue current tx plan. Medication Compliance: Yes Side effects from medications: No Attending Groups: Yes Mental Status Exam Mental Status Exam Patient Appearance: Well Grooomed Patient Orientation: Person, Place, Time and Situation Level of Consciousness: Awake and Alert Patient Behavior: Guarded and Good Eye Contact Mood Description: Calm Affect Description: Calm Ability to Follow Directions: Good Speech Pattern: Clear and Soft-Spoken Memory Description: Intact Hallucinations: None Delusions: Not Present Thought Process: Intact Thought Content: positive for Intact Diagnostics Vital Signs (24Hr): Vital Signs - 24 hr 01/02/25 19:38 01/03/25 07:53 Temperature 98.6 F 98.4 F Pulse Rate 95 99 Respiratory Rate 16 18 Blood Pressure 147/73 H 116/54 L Pulse Oximetry 99 99 Oxygen Delivery Method Room Air Room Air BMI result Body Mass Index 32.6 Labs 12/26/24 13:30 12/15/24 07:54 Labs: Laboratory Results - last 48 hr 01/02/25 07:24 Absolute Neuts (auto) 1.1 L Medications Medications Current Medications Al Hydroxide/Mg Hydroxide (Magnesium Hydrox/Alum Hydrox 30 Ml Oral.Susp) 30 ml PO Q6H PRN PRN Reason: Heartburn/Nausea Clozapine (Clozapine 25 Mg Tablet) 50 mg PO BEDTIME [facility] Last Admin: 01/02/25 21:12 Dose: 50 mg Lorazepam (Lorazepam 1 Mg Tablet) 1 mg PO TID [facility] Last Admin: 01/03/25 07:57 Dose: 1 mg Magnesium Hydroxide (Milk Of Magnesia 30 Ml Oral.Susp) 30 ml PO DAILY PRN PRN Reason: Constipation Multivitamins/Vitamin C (Multivitamin Tablet) 1 tab PO DAILY [facility] Last Admin: 01/03/25 07:57 Dose: 1 tab Allergies Allergies Allergy/AdvReac Type Severity Reaction Status Date / Time No Known Allergies Allergy Verified 11/28/24 13:56 Assessment & Plan Assessment & Plan (1) 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 Pt transferred to medical floor from ICU for continued IV benzodiazepines, IV fluids, TPN. Patient court-ordered treatment including ECT. Once patient received ECT he started coming out of catatonic symptoms Initial Impression: It is difficult to know the etiology of catatonia. People with autism, psychotic disorders, or taking a antipsychotic medications are all at increased risk for catatonia and patient has all 3 risk factors (so it seems). Again from collateral it sounds very possible that catatonic symptoms started in the community in the week prior to this admission. Here at [facility] with IV benzodiazepines,, patient had observed but minimal improvement with IV diazepam; now on IV Ativan with some additional improvement. Discussed case thoroughly with Dr. Lira who agrees that current treatment plan of IV Ativan as both appropriate and necessary treatment to resolve catatonia and prevent malignant catatonia. Lamp Cleaner has discussed the possibility of patient needing ECT treatment if IV benzos do not adequately resolve symptoms; family remains cautious about ECT but seems to understand that this could be necessary. After receiving collateral from patient's mother (see below), it seems that patient was demonstrating significant changes in his behavior, very different from his normal way of functioning and his normal expressions of autism. That said , some other family members perspective is with discrepancy from mother's collateral so it is not totally clear. But per the mother, The behavioral changes described sound like prodrome of schizophrenia. Patient's father also observed patient responding to internal stimuli, also very different from his normal expressions. Lamp Cleaner met with and discussed case with patient's father and then talked with patient's mother who currently lives in [place]. Collateral from patient's mother, Cliff, ([phone]) ASD; IEP, honors classes, working; spelling [employer]; graduated [employer]; -around 22 years old, seemed more reclusive and pt started changing -lost job September 2022; missing days, not focused; got fired at next job for going too slow -a year ago, less ADL's, not showering, less motivation, mom thinking more than just ASD since not like this at all in [place] -Refusing to go to appointments. Got him to ED and psych doctor evaluated but was not able to be Sectioned; mom tried other times to get him to doctor, to hospital, but police felt did not meet criteria to section him... -still minimal ADL's; in Fall 2023 started sleeping outside in the park which again, out of character -Jul 2024 making slow movements, like in slow motion, but able to pull out of it; kept sleeping outside in front of her door, peeing on himself or in bottles. -Episodes of staring off and not responding; intermittently would look agitated -Mom sent him to [place] to be with father -no hx of drug/alcohol use -had gone 36 hours w/out sleep, but not hyperactive, withdrawn and either quiet on laptop or making lots of food but not eating -no seizure hx -no hx of medication Hospital course: Initially patient admitted to for psychosis; quickly developed severe catatonia, rigidity, not eating or drinking or moving or talking at all. Moved to medical floor and then ICU for IV benzos: 1.Initially Patient was 1st sent from to the medical floor. Due to national shortage of liquid Ativan, He received midazolam 2 mg IV however patient had no response. He was then given diazepam 10 mg IV and within 30 seconds, he relaxed his muscles, folded his arms, turned over on his side and moved his legs, 1st natural movements observed for several days. Lamp Cleaner collaborated with Dr. Lira and after literature review, both agreed that patient required immediate IV diazepam treatment to prevent patient from progressing towards a malignant catatonia; since patient had demonstrated initial response to diazepam he should be continued on diazepam; the literature recommends diazepam IV infusion at 10mg/500ml saline at 1.25mg/hour; diazepam infusion not available per hospital formulary so agreed to diazepam 2.5 mg IV push q.2 hours. 2)Hospitalist team/medical floor nursing staff felt patient should be observed on ICU for this administration and he was transferred to the ICU. In the ICU, Patient treated with IV Diazepam for about 36 hours with limited effect, with rigidity having resolved (and periodically briefly opening his eyes) but other symptoms of catatonia remaining including, not following verbal commands and negativism (resistance of examine his manipulation with equal strength). Team agreed to switch from diazepam to Ativan 2 mg IV q.i.d.. After about 12 hours patient improved some more, responding to noxious stimuli/sternal rub and grimaced and actively pushed examiner's hand away. After about 36 hours give or take, dose increase to Ativan 2 mg IV q4H. Patient able to be transferred back to the medical floor. 3) patient on medical floor receiving Ativan 2 mg IV q4h. He remains in the bed with his eyes closed, not responding to verbal commands but is overall moving all limbs more naturally on his own. Negative his remains. ICU 12/06 Patient remains with same minimal improvement observed when starting diazepam; he is moving on his own a little more naturally though still minimally. Will appeared to be trying to open his eyes sometimes when his name is called. Continues with negativism however otherwise is not rigid. Lamp Cleaner met with patient's father and stepmother Debra. Initially family expressed dissatisfaction with treatment and wanted patient transferred to [facility]. Dr. Jiang reached out to [facility] to discuss case and they declined to take patient at this time, not having a bed available and also not being able to provide ECT should patient require it. Patient's family accepted this. Lamp Cleaner again spent about an hour providing education on catatonia, its causes and its treatments, including ECT; explained ECT procedure as well. Dr. Lira also provided the family with printed out literature regarding these topics, including ECT. After discussion, patient's family seemed to agree with current treatment plan of continuing with benzodiazepines. Since patient had only a minimal response to IV diazepam, decision was made to switch to IV Ativan to see if this would be more effective; also discussed with family who agreed with this plan. Lamp Cleaner again offered to talk with family member who is a neurologist and gave them bond underwriter's contact information to pass along. 12/07 some change in presentation as patient now responsive to noxious stimuli/chest rub, grimacing and pushing examiner's hand away. Lamp Cleaner and Dr. Lira agree this is improvement and evidence that Ativan is helping (progression: rigidity and no response to noxious stimuli -- progressed to absence of rigidity but still no response to noxious stimuli--progressed to now, pt with active response to noxious stimuli). -Literature reviewed and after team discussion agreed to increase IV Ativan to 2 mg q.4h -brain MRI unremarkable -Discussed with Dr. Jiang who felt patient could be safely transferred back to medical floor out of ICU; family informed Medical floor: 12/08 patient remains catatonic, not opening his eyes, not responding to any verbal interactions; remains with negativism; however is moving increasingly or naturally on his own. Discussed with dr. Ernandez. -continue with Ativan 2 mg q4h for now 12/09 Last night/early AM pt spiked fever 105, tachy, tachypneic. Treated with abx, cooling blanket, rectal acetaminophen; CXR negative. Temp came down and pt only mildly tachy; RR 18. Also...This morning, pt woke up, talked with Dr. Ernandez and asked for a sandwich; a little later with nurse, he knew his name, and that he was at [facility]. Later in day, on approach, pt sleeping, sometimes yawning; did not wake up to speaking his name; bond underwriter did not do sternal rub -tried to test for rigidity but not able to assess since pt's remains w/ negativism (catatonic symptom of resisting examiner w/ equal force) but pt appears to be moving around easily enough on his own. -did not really at risk for NMS since pt only on Diazepam T:99.4 (on cooling blanket) BP:112/68 O2 96% HR 98 RR: 18 lips appear swollen UA unremarkable CXR unremarkable negative covid/rsv/flu Lamp Cleaner discussed case with Dr. Lira; bond underwriter Discussed case with Dr. Ernandez regarding blood cultures/LP; at this time Dr. Ernandez would like to continue monitoring but advance to LP if patient does not improve. Hospital ran out of Ativan; will switch back to diazepam Impression: Despite the fact that patient spiked a fever and was tachy and tachypneic, the fact that he woke up, was talking, interacting oriented to self and place was very encouraging. Ativan seems to have been more effective than diazepam and remains preferred, however diazepam has had some positive effect. Patient being worked up for infectious etiology, though he does not appear ill looking. It is possible that fever, increased heart rate respiratory rate was a brief crossing into a malignant catatonia; will continue with current treatment plan; ECT remains consider most effective treatment however need court order 12/11 LP so far mostly negative with a few parameters still pending; Afebrile and vitals WNL Patient remains with eyes closed but is moving his body and head around on his own; sometimes role in his head around and around. Still does not respond to verbal stimuli. Waxy flexibility noted; initially only minimal negativeism however this increased with examiners manipulations. Has not open his eyes or talked since Friday 12/08 (per father patient also talked with his mother on the phone, talked with his grandmother). -discussed with pharmacist and some additional Ativan has been procured though in a very limited supply; will restart Ativan IV -of note diazepam infusion is not possible per pharmacy -would also consider memantine, though must be taken p.o. Impression: Patient has certainly improved with IV benzodiazepines, lorazepam seeming to be the most effective. However he remains with severe catatonia. Although he open his eyes and spoke briefly, he has not done so for 3 days and for the past 3 days he has remained with eyes closed, nonverbal, not responding to verbal cues, not eating, not drinking. Thus far, workup for infection has been unremarkable, with only a few LP labs still pending. Because no infectious process can be identified patient is episode of fever, tachycardia and tachypnea remain concerning for possible brief transitioned into malignant catatonia. Currently patient is afebrile and vitals WNL however the risks increase the longer catatonia persists and ECT remains the most viable treatment option -court scheduled for today 12/12 ECT today. Discussed case in detail with Dr. Lira who agreed with proceeding to ECT for following reasons: 1. He remains with Severe catatonia; he is not eating, drinking, talking or opening his eyes, responding to verbal stimuli or getting out of bed; he cannot communicate or receive information; he continues to need IV fluids, nutrition without which he would go into organ failure and . 2. This past weekend, he became febrile with a temperature spiking to 105 degrees; he was tachycardic to 133, tachypneic to 22 RR? temperature lowered but he remained febrile for the next day...... After thorough workup which included an LP, chest x-ray, UA, RSV/COVID/flu? no infectious process identified, other than possible sinusitis. Was this episode of autonomic dysregulation a brief crossover into malignant catatonia? Concern for patients condition to turn malignant increases the longer catatonia persists. 3. The longer a person remains catatonic the harder it becomes to resolve it. Prolonged catatonia correlates with higher risk of serious medical complications, including ?and include the risks associated with continuous IV, [place], and being bed bound. A person can rapidly deteriorate despite being on benzodiaepines. 4. Literature recommends a Switch to ECT when: Lorazepam (Ativan) fails after 3?5 days of adequate dosing (e.g., 6?12 mg/day) to prevent poor outcome (Electroconvulsive therapy in catatonic patients: Efficacy and predictors of response (2015)) -Will continue with ECT WMF Will treat with Diazepam 5mg IV TID to treat for Benzo withdrawal and to treat catatonia; as pt improves, will taper benzo 12/13 Patient open his eyes, started answering questions by nodding his head and remained so throughout the day. Lamp Cleaner explained patient's condition and treatment though doubtful patient understood much of it. Lamp Cleaner gave him 2 doses of IV Ativan 2 mg which seemed to help because Later on bond underwriter was informed the patient was again talking, eating and drinking. ECT tomorrow but if patient remains much improved, maybe able to return to the psychiatric unit -discussed case with Dr. Serrano and Dr. Lira and will continue benzos both to help make sure catatonia does not return and to avoid benzo withdrawal RETURNED TO PSYCH UNIT M5 (12/14): Patient significantly improved, walking, talking, eating, drinking and moving about. Patient was able to return to the psych floor. Plan is to continue ECT doing better on ativan 1mg tid, on 1:1 eating- some odd behaviors but no longer fully catatonic! 12/16 - dc 1:1, pt requested ensure with meals- maybe be rebound hunger from not eating while catatonic. 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 Patient eating, drinking, talking, walking and interacting appropriately (keeping in mind ASD) Patient does not remember any of the events preceding this admission or during until getting to the psychiatric floor; catatonia and treatment explained to patient and he is amenable to continuing with ECT and benzodiazepines. Patient says he feels back to his regular self in his father was present, says he thinks so too. Patient denies any psychotic symptoms at all Although patient is much improved, he remained significantly vulnerable to return of catatonic symptoms. Discussed with Dr. Lira who agrees to Continue with ECT on 12/19 and 12/21 so as to prevent any return of catatonic symptoms; will continue with Ativan but likely further taper at some point. Will continue to assess. Regarding guardianship, at this time bond underwriter does not see a need for patient to have a guardian. Currently however patient has no outpatient providers and no where to live; where patient to be discharged now he would likely become quickly impaired 12/19 Patient says he is doing well. He remains feeling like his normal self. Patient continues to deny any AH or paranoid ideations and says he does not remember having any of these before. He says he finds the atmosphere on the unit to be pretty good and has no complaints. Patient asked about ECT, how much more he is going to get and agrees to treatment plan. Discussed post discharge and patient said he liked living in [place] and is considering going back to his mother's there but wonders if staying here might be easier. He said he also is considering going to his aunt's house in [place]. 12/20 Patient remains organized in speech and behavior. Talked about ECT, talked about his goals. Patient said he would like to find working computers, something he has been interested in for years. He has some ambivalence about returning to [place] since he says he and his mom have very different view on things; she very much wanted him to join the [employer] though he did not think it was necessarily a good fit for him. Discussed autism and patient knows that he has had this diagnosis and has worked through it for years. He continues to deny any psychotic symptoms at all. -patient's mother told social work therapist that after having talked with them on the phone for the past several days she says he sounds like his regular self. 12/21 no change in presentation; no problems with ECT denies any psychiatric symptoms; denies psychotic symptoms, Pt shared ambivalence about returning to live w/ mom in [place]; he agrees that option of staying in group home here is precarious. Family meeting tuesday -ECT on tuesday and then will re-assess -continue ativan 1 mg TID (to prevent return of symptoms) 12/23 Continue tx 12/24 pt denies any psychotic symptoms. He had ECT today and says he's having trouble with recent memories but can not specify further. Family meeting today. -at this point will hold ECT for Tue; will consider either Tuesday or next week. Pt remains highly vulnerable to re-emergence of catatonic symptoms, however, now complaining of memory issues. 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 Patient shared about psychotic symptoms: In [place] (in the weeks before coming to [facility]): pt acknowledged that he was having hallucinations prior to admission. For several weeks, He says in [place] i was experiencing hallucinations...i heard voices telling me to bring material...[with his mind] and i felt like i had to bring them this material or i would be in big trouble... (not sure who they were). He felt like he had no choice in the matter.. Pt was sometimes sleeping on a park bench and thinks the voices were related to this [facility] (on way to [facility]): When he got to [facility], he had hallucinations it was pretty intense there...the voices were definetly stronger saying this is not reality...the reality you think you know is not real..it's all fake... and voices were putting more pressure on me to do what they wanted...they wanted me to do various stretches...and according to them i was failing and they threatened to disban me.... At this point there was more than one voice talking together about him. He found it very distracting and says this was why he was walking around in circles. Shared that AH told him everyone was a dog which he thought was true... (no VH). That's what i was being told...i was made up of multiple dogs... The voices told him to spin in a [place] to leave the realm... which is what police found him doing while in [facility]. At group home in [facility]: delusions/AH persisted; he had belief that he was a child being disciplined by others...AH telling him to beat himself up for discipline; he hit himself a few times but then realized not to... Looking back now, he knows it was his mind not playing tricks on him. Pt says since being here at the hospital he has not had any psychotic symptoms. He says this was hard to talk about but is comfortable talking about it now. -reviewed diagnosis and treatment; discussed antipsychotic medications including Clozaril and discussed risks/side effects including but not limited to agranulocytosis patient understands and agrees to start Clozaril 12/26 Patient reports that he is good and just thinking about catatonia; patient was amazed at how long it lasted. Discussed again about recent diagnosis of schizophrenia and treatment and patient remains amenable to starting Clozaril. 12/27 change to ECT weekly; pt agrees to increase clozapine 12/28; continue treatment plan; agrees to titrate clozapine; ECT Tuesday; continue Ativan 1 mg t.i.d. 12/29 continue with treatment plan 12/30 continue with treatment plan; ECT tomorrow Tuesday. Moving ECT to once a week and dispo planning continues 12/31 ECT to once a week; continue Ativan for several weeks; dispo planning -will continue to titrate Clozaril with dose of 100 mg; currently patient is without psychotic symptoms however he is also getting ECT. It is difficult to know what dose of clozapine he will need once ECT tapers and is discontinued. Patient will need to be monitored closely. 01/01 patient asks for Clozaril to stay at 50 mg since no symptoms; understands that ECT maybe keeps in symptoms at [place] however would like to hold off increasing for now 01/02 patients ANC was 1.5 on 12/26 and today 01/02 it is 1.1 which [address] patient in mild neutropenia; recommendations are to continue treatment but increase monitoring to 3 times a week. 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 guarded. pt reports feeling good today; pt stated, I feel like the medications are working well . He reports sleeping well last night. denies SI/HI/VH/AH. Continue current tx plan. Review of guidlines in [id number]: -Mild neutropenia (absolute neutrophil count [ANC]: 1000 to 1499/microL) ? Continue treatment but increase monitoring frequency to three times per week. -Moderate neutropenia (ANC: 500 to 999/microL) ? Interrupt?clozapine increase monitoring to daily until ANC is 1000/microL at which point clozapine can be reinstituted. -Severe neutropenia/agranulocytosis (ANC: <500/microL) ? Discontinue?clozapine; .Rechallenge should only occur if the benefits outweigh the risks, in consultation with hematology. 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 for several weeks and then taper off. Patient is tolerating clozapine and without any psychotic symptoms. Patient has autistic spectrum disorder which is a complicating factor as patient needs help in the community for functioning. Although catatonic symptoms have resolved, patient symptoms were very severe and his progress remains tentative state and he is still at risk for catatonic symptoms to return. Thus patient needs to be carefully monitored by a provider over the next several weeks and needs to have access ECT which will be ongoing. Patient also has schizophrenia. He was started on Clozaril which continues to be titrated; because his psychotic symptoms are mitigated by ECT, he will need continued close observation for psychotic symptoms as well. Patient's situation is currently fragile. He has autism, schizophrenia and is homeless. Applications are in for both H and [facility] however services are not set up yet; social work is working diligently to get him temporarily housed at a family member's nearby where he will have access to ECT. Without housing (and aftercare established), were patient to be discharged today he would be unable to function by himself in the community; he would be vulnerable to predation (as he was in the group home) and would quickly decompensate. Plan: q5's SECTION 8/8a; court-ordered ECT and medications Continue Clozapine 50mg qhs (reviewed risks/side effects which patient understands and agrees to; Clozaril chosen since not only is at the least likely to cause catatonia but is sometimes treatment for catatonia) Continue Ativan 1 mg t.i.d. p.o. for both benzo withdrawal and to avoid any return of catatonic symptoms ECT MWF (Court ordered; pt on Section 8/8a) ECT #1 on 12/12 ECT #2 on 12/14 ECT #3 on 12/17 ECT #4 on 12/19 ECT #5 on 12/21 ECT #6 on 01/24 ECT #7 on 12/31 ECT changing to weekly; however next available time is 01/09 Patient educated on: medication risk/benefits Reason for continued inpatient stay Substantial Risk for: med/psych decompensation Time Spent With Patient Time: Total time managing care of this patient today _15___ minutes.
[2025-01-03] MEDS: cloZAPine 25 MG TABLET 50 MG PO (20:51)
[2025-01-03 21:20] VITALS: BP 132/77; PULSE 98; RESP 16; TEMP 36.6; O2SAT 96
[2025-01-03 22:00] VITALS: BP 134/76; PULSE 98; RESP 18; TEMP 36.6; O2SAT 96
[2025-01-04 07:48] VITALS: BP 144/84; PULSE 118; RESP 16; TEMP 36.4; O2SAT 99
[2025-01-04 08:01] LABS: Neut%MD 25.6 %; Neutrophils Absolute Auto 1.2 x10*3/uL (2.0-8.3); WBCANC 4.8 X10*3/uL
[2025-01-04] MEDS: Multivitamin TABLET 1 TAB PO (08:34)
[2025-01-04] MEDS: LORazepam 1 MG TABLET PO ×3 (08:34→21:24)
--- NOTE | 2025-01-04 09:41 | P.PNPSI_ITS ---
Subjective Subjective Date of Service: 01/04/25 Reason For Visit: catatonia/psychosis/autism Interim History: met with patient; discussed with team reviewed labs and discussed with patient; ANC remains stable at 1.2 no complaints; denies psych symptoms Mental Status Exam Mental Status Exam Narrative: Pt is alert and oriented; behavior is cooperative, friendly and calm; without any catatonic symptoms; periodically squints his eyes; patient is not in distress; dressed in hospital attire with unkempt hair but adequate hygiene; mood is described as good and affect congruent; eye contact a little avoidant; Speech is minimal but normal rate, volume and prosody and not pressured; no psychomotor agitation/retardation present; thought process is goal directed, concrete; Thought content is on past psychotic symptoms, dx, treatment; no delusional ideations expressed; denies any SI/HI. Denies AVH; not clear if patient appears internally preoccupied Patients insight and judgment adequate and at baseline Diagnostics Vital Signs (24Hr): Vital Signs - 24 hr 01/03/25 21:20 01/03/25 22:00 01/04/25 07:48 Temperature 97.9 F 97.9 F 97.5 F Pulse Rate 98 98 118 H Respiratory Rate 16 18 16 Blood Pressure 132/77 134/76 144/84 H Pulse Oximetry 96 96 99 Oxygen Delivery Method Room Air Room Air Room Air BMI result Body Mass Index 32.6 Labs 12/26/24 13:30 12/15/24 07:54 Labs: Laboratory Results - last 48 hr 01/04/25 07:48 Absolute Neuts (auto) 1.2 L Medications Medications Current Medications Al Hydroxide/Mg Hydroxide (Magnesium Hydrox/Alum Hydrox 30 Ml Oral.Susp) 30 ml PO Q6H PRN PRN Reason: Heartburn/Nausea Clozapine (Clozapine 25 Mg Tablet) 50 mg PO BEDTIME ARNIE Last Admin: 01/03/25 20:51 Dose: 50 mg Lorazepam (Lorazepam 1 Mg Tablet) 1 mg PO TID ARNIE Last Admin: 01/04/25 08:34 Dose: 1 mg Magnesium Hydroxide (Milk Of Magnesia 30 Ml Oral.Susp) 30 ml PO DAILY PRN PRN Reason: Constipation Multivitamins/Vitamin C (Multivitamin Tablet) 1 tab PO DAILY ARNIE Last Admin: 01/04/25 08:34 Dose: 1 tab Allergies Allergies Allergy/AdvReac Type Severity Reaction Status Date / Time No Known Allergies Allergy Verified 11/28/24 13:56 Assessment & Plan Assessment & Plan (1) 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 Pt transferred to medical floor from ICU for continued IV benzodiazepines, IV fluids, TPN. Patient court-ordered treatment including ECT. Once patient received ECT he started coming out of catatonic symptoms Initial Impression: It is difficult to know the etiology of catatonia. People with autism, psychotic disorders, or taking a antipsychotic medications are all at increased risk for catatonia and patient has all 3 risk factors (so it seems). Again from collateral it sounds very possible that catatonic symptoms started in the community in the week prior to this admission. [facility] at [facility] with IV benzodiazepines,, patient had observed but minimal improvement with IV diazepam; now on IV Ativan with some additional improvement. Discussed case thoroughly with Dr. Lira who agrees that current treatment plan of IV Ativan as both appropriate and necessary treatment to resolve catatonia and prevent malignant catatonia. Telephone Information Clerk has discussed the possibility of patient needing ECT treatment if IV benzos do not adequately resolve symptoms; family remains cautious about ECT but seems to understand that this could be necessary. After receiving collateral from patient's mother (see below), it seems that patient was demonstrating significant changes in his behavior, very different from his normal way of functioning and his normal expressions of autism. That said , some other family members perspective is with discrepancy from mother's collateral so it is not totally clear. But per the mother, The behavioral changes described sound like prodrome of schizophrenia. Patient's father also observed patient responding to internal stimuli, also very different from his normal expressions. Telephone Information Clerk met with and discussed case with patient's father and then talked with patient's mother who currently lives in [place]. Collateral from patient's mother, Cliff ([phone]) ASD; IEP, honors classes, working; [employer]; graduated [employer]; -around 22 years old, seemed more reclusive and pt started changing -lost job September 2022; missing days, not focused; got fired at next job for going too slow -a year ago, less ADL's, not showering, less motivation, mom thinking more than just ASD since not like this at all in [employer] -Refusing to go to appointments. Got him to ED and psych doctor evaluated but was not able to be Sectioned; mom tried other times to get him to doctor, to hospital, but police felt did not meet criteria to section him... -still minimal ADL's; in Fall 2023 started sleeping outside in the park which again, out of character -Jul 2024 making slow movements, like in slow motion, but able to pull out of it; kept sleeping outside in front of her door, peeing on himself or in bottles. -Episodes of staring off and not responding; intermittently would look agitated -Mom sent him to [place] to be with father -no hx of drug/alcohol use -had gone 36 hours w/out sleep, but not hyperactive, withdrawn and either quiet on laptop or making lots of food but not eating -no seizure hx -no hx of medication Hospital course: Initially patient admitted to for psychosis; quickly developed severe catatonia, rigidity, not eating or drinking or moving or talking at all. Moved to medical floor and then ICU for IV benzos: 1.Initially Patient was 1st sent from to the medical floor. Due to national shortage of liquid Ativan, He received midazolam 2 mg IV however patient had no response. He was then given diazepam 10 mg IV and within 30 seconds, he relaxed his muscles, folded his arms, turned over on his side and moved his legs, 1st natural movements observed for several days. Telephone Information Clerk collaborated with Dr. Lira and after literature review, both agreed that patient required immediate IV diazepam treatment to prevent patient from progressing towards a malignant catatonia; since patient had demonstrated initial response to diazepam he should be continued on diazepam; the literature recommends diazepam IV infusion at 10mg/500ml saline at 1.25mg/hour; diazepam infusion not available per hospital formulary so agreed to diazepam 2.5 mg IV push q.2 hours. 2)Hospitalist team/medical floor nursing staff felt patient should be observed on ICU for this administration and he was transferred to the ICU. In the ICU, Patient treated with IV Diazepam for about 36 hours with limited effect, with rigidity having resolved (and periodically briefly opening his eyes) but other symptoms of catatonia remaining including, not following verbal commands and negativism (resistance of examine his manipulation with equal strength). Team agreed to switch from diazepam to Ativan 2 mg IV q.i.d.. After about 12 hours patient improved some more, responding to noxious stimuli/sternal rub and grimaced and actively pushed examiner's hand away. After about 36 hours give or take, dose increase to Ativan 2 mg IV q4H. Patient able to be transferred back to the medical floor. 3) patient on medical floor receiving Ativan 2 mg IV q4h. He remains in the bed with his eyes closed, not responding to verbal commands but is overall moving all limbs more naturally on his own. Negative his remains. ICU 12/06 Patient remains with same minimal improvement observed when starting diazepam; he is moving on his own a little more naturally though still minimally. Will appeared to be trying to open his eyes sometimes when his name is called. Continues with negativism however otherwise is not rigid. Telephone Information Clerk met with patient's father and stepmother Debra. Initially family expressed dissatisfaction with treatment and wanted patient transferred to [facility]. Dr. Jiang reached out to [facility] to discuss case and they declined to take patient at this time, not having a bed available and also not being able to provide ECT should patient require it. Patient's family accepted this. Telephone Information Clerk again spent about an hour providing education on catatonia, its causes and its treatments, including ECT; explained ECT procedure as well. Dr. Lira also provided the family with printed out literature regarding these topics, including ECT. After discussion, patient's family seemed to agree with current treatment plan of continuing with benzodiazepines. Since patient had only a minimal response to IV diazepam, decision was made to switch to IV Ativan to see if this would be more effective; also discussed with family who agreed with this plan. Telephone Information Clerk again offered to talk with family member who is a neurologist and gave them fiction and nonfiction prose writer's contact information to pass along. 12/07 some change in presentation as patient now responsive to noxious stimuli/chest rub, grimacing and pushing examiner's hand away. Telephone Information Clerk and Dr. Lira agree this is improvement and evidence that Ativan is helping (progression: rigidity and no response to noxious stimuli -- progressed to absence of rigidity but still no response to noxious stimuli--progressed to now, pt with active response to noxious stimuli). -Literature reviewed and after team discussion agreed to increase IV Ativan to 2 mg q.4h -brain MRI unremarkable -Discussed with Dr. Jiang who felt patient could be safely transferred back to medical floor out of ICU; family informed Medical floor: 12/08 patient remains catatonic, not opening his eyes, not responding to any verbal interactions; remains with negativism; however is moving increasingly or naturally on his own. Discussed with dr. Ernandez. -continue with Ativan 2 mg q4h for now 12/09 Last night/early AM pt spiked fever 105, tachy, tachypneic. Treated with abx, cooling blanket, rectal acetaminophen; CXR negative. Temp came down and pt only mildly tachy; RR 18. Also...This morning, pt woke up, talked with Dr. Ernandez and asked for a sandwich; a little later with nurse, he knew his name, and that he was at [facility]. Later in day, on approach, pt sleeping, sometimes yawning; did not wake up to speaking his name; fiction and nonfiction prose writer did not do sternal rub -tried to test for rigidity but not able to assess since pt's remains w/ negativism (catatonic symptom of resisting examiner w/ equal force) but pt appears to be moving around easily enough on his own. -did not really at risk for NMS since pt only on Diazepam T:99.4 (on cooling blanket) BP:112/68 O2 96% HR 98 RR: 18 lips appear swollen UA unremarkable CXR unremarkable negative covid/rsv/flu Telephone Information Clerk discussed case with Dr. Lira; fiction and nonfiction prose writer Discussed case with Dr. Ernandez regarding blood cultures/LP; at this time Dr. Ernandez would like to continue monitoring but advance to LP if patient does not improve. Hospital ran out of Ativan; will switch back to diazepam Impression: Despite the fact that patient spiked a fever and was tachy and tachypneic, the fact that he woke up, was talking, interacting oriented to self and place was very encouraging. Ativan seems to have been more effective than diazepam and remains preferred, however diazepam has had some positive effect. Patient being worked up for infectious etiology, though he does not appear ill looking. It is possible that fever, increased heart rate respiratory rate was a brief crossing into a malignant catatonia; will continue with current treatment plan; ECT remains consider most effective treatment however need court order 12/11 LP so far mostly negative with a few parameters still pending; Afebrile and vitals WNL Patient remains with eyes closed but is moving his body and head around on his own; sometimes role in his head around and around. Still does not respond to verbal stimuli. Waxy flexibility noted; initially only minimal negativeism however this increased with examiners manipulations. Has not open his eyes or talked since Friday 12/08 (per father patient also talked with his mother on the phone, talked with his grandmother). -discussed with pharmacist and some additional Ativan has been procured though in a very limited supply; will restart Ativan IV -of note diazepam infusion is not possible per pharmacy -would also consider memantine, though must be taken p.o. Impression: Patient has certainly improved with IV benzodiazepines, lorazepam seeming to be the most effective. However he remains with severe catatonia. Although he open his eyes and spoke briefly, he has not done so for 3 days and for the past 3 days he has remained with eyes closed, nonverbal, not responding to verbal cues, not eating, not drinking. Thus far, workup for infection has been unremarkable, with only a few LP labs still pending. Because no infectious process can be identified patient is episode of fever, tachycardia and tachypnea remain concerning for possible brief transitioned into malignant catatonia. Currently patient is afebrile and vitals WNL however the risks increase the longer catatonia persists and ECT remains the most viable treatment option -court scheduled for today 12/12 ECT today. Discussed case in detail with Dr. Lira who agreed with proceeding to ECT for following reasons: 1. He remains with Severe catatonia; he is not eating, drinking, talking or opening his eyes, responding to verbal stimuli or getting out of bed; he cannot communicate or receive information; he continues to need IV fluids, nutrition without which he would go into organ failure and . 2. This past weekend, he became febrile with a temperature spiking to 105 degrees; he was tachycardic to 133, tachypneic to 22 RR? temperature lowered but he remained febrile for the next day...... After thorough workup which included an LP, chest x-ray, UA, RSV/COVID/flu? no infectious process identified, other than possible sinusitis. Was this episode of autonomic dysregulation a brief crossover into malignant catatonia? Concern for patients condition to turn malignant increases the longer catatonia persists. 3. The longer a person remains catatonic the harder it becomes to resolve it. Prolonged catatonia correlates with higher risk of serious medical complications, including ?and include the risks associated with continuous IV, [place], and being bed bound. A person can rapidly deteriorate despite being on benzodiaepines. 4. Literature recommends a Switch to ECT when: Lorazepam (Ativan) fails after 3?5 days of adequate dosing (e.g., 6?12 mg/day) to prevent poor outcome (Electroconvulsive therapy in catatonic patients: Efficacy and predictors of response (2015)) -Will continue with ECT [facility]F Will treat with Diazepam 5mg IV TID to treat for Benzo withdrawal and to treat catatonia; as pt improves, will taper benzo 12/13 Patient open his eyes, started answering questions by nodding his head and remained so throughout the day. Telephone Information Clerk explained patient's condition and treatment though doubtful patient understood much of it. Telephone Information Clerk gave him 2 doses of IV Ativan 2 mg which seemed to help because Later on fiction and nonfiction prose writer was informed the patient was again talking, eating and drinking. ECT tomorrow but if patient remains much improved, maybe able to return to the psychiatric unit -discussed case with Dr. Serrano and Dr. Lira and will continue benzos both to help make sure catatonia does not return and to avoid benzo withdrawal RETURNED TO PSYCH UNIT M5 (12/14): Patient significantly improved, walking, talking, eating, drinking and moving about. Patient was able to return to the psych floor. Plan is to continue ECT doing better on ativan 1mg tid, on 1:1 eating- some odd behaviors but no longer fully catatonic! 12/16 - dc 1:1, pt requested ensure with meals- maybe be rebound hunger from not eating while catatonic. 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 Patient eating, drinking, talking, walking and interacting appropriately (keeping in mind ASD) Patient does not remember any of the events preceding this admission or during until getting to the psychiatric floor; catatonia and treatment explained to patient and he is amenable to continuing with ECT and benzodiazepines. Patient says he feels back to his regular self in his father was present, says he thinks so too. Patient denies any psychotic symptoms at all Although patient is much improved, he remained significantly vulnerable to return of catatonic symptoms. Discussed with Dr. Lira who agrees to Continue with ECT on 12/19 and 12/21 so as to prevent any return of catatonic symptoms; will continue with Ativan but likely further taper at some point. Will continue to assess. Regarding guardianship, at this time fiction and nonfiction prose writer does not see a need for patient to have a guardian. Currently however patient has no outpatient providers and no where to live; where patient to be discharged now he would likely become quickly impaired 12/19 Patient says he is doing well. He remains feeling like his normal self. Patient continues to deny any AH or paranoid ideations and says he does not remember having any of these before. He says he finds the atmosphere on the unit to be pretty good and has no complaints. Patient asked about ECT, how much more he is going to get and agrees to treatment plan. Discussed post discharge and patient said he liked living in [place] and is considering going back to his mother's there but wonders if staying here might be easier. He said he also is considering going to his aunt's house in [place]. 12/20 Patient remains organized in speech and behavior. Talked about ECT, talked about his goals. Patient said he would like to find working computers, something he has been interested in for years. He has some ambivalence about returning to [place] since he says he and his mom have very different view on things; she very much wanted him to join the [employer] though he did not think it was necessarily a good fit for him. Discussed autism and patient knows that he has had this diagnosis and has worked through it for years. He continues to deny any psychotic symptoms at all. -patient's mother told public health social worker that after having talked with them on the phone for the past several days she says he sounds like his regular self. 12/21 no change in presentation; no problems with ECT denies any psychiatric symptoms; denies psychotic symptoms, Pt shared ambivalence about returning to live w/ mom in [place]; he agrees that option of staying in [facility] here is precarious. Family meeting tuesday -ECT on tuesday and then will re-assess -continue ativan 1 mg TID (to prevent return of symptoms) 12/23 Continue tx 12/24 pt denies any psychotic symptoms. He had ECT today and says he's having trouble with recent memories but can not specify further. Family meeting today. -at this point will hold ECT for Tue; will consider either Tuesday or next week. Pt remains highly vulnerable to re-emergence of catatonic symptoms, however, now complaining of memory issues. 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 Patient shared about psychotic symptoms: In [place] (in the weeks before coming to [facility]): pt acknowledged that he was having hallucinations prior to admission. For several weeks, He says in [place] i was experiencing hallucinations...i heard voices telling me to bring material...[with his mind] and i felt like i had to bring them this material or i would be in big trouble... (not sure who they were). He felt like he had no choice in the matter.. Pt was sometimes sleeping on a park bench and thinks the voices were related to this [facility] (on way to [facility]): When he got to [facility], he had hallucinations it was pretty intense there...the voices were definetly stronger saying this is not reality...the reality you think you know is not real..it's all fake... and voices were putting more pressure on me to do what they wanted...they wanted me to do various stretches...and according to them i was failing and they threatened to disban me.... At this point there was more than one voice talking together about him. He found it very distracting and says this was why he was walking around in circles. Shared that AH told him everyone was a dog which he thought was true... (no [facility]). That's what i was being told...i was made up of multiple dogs... The voices told him to spin in a washoe to leave the realm... which is what police found him doing while in [facility]. At [facility]: delusions/AH persisted; he had belief that he was a child being disciplined by others...AH telling him to beat himself up for discipline; he hit himself a few times but then realized not to... Looking back now, he knows it was his mind not playing tricks on him. Pt says since being here at the hospital he has not had any psychotic symptoms. He says this was hard to talk about but is comfortable talking about it now. -reviewed diagnosis and treatment; discussed antipsychotic medications including Clozaril and discussed risks/side effects including but not limited to agranulocytosis patient understands and agrees to start Clozaril 12/26 Patient reports that he is good and just thinking about catatonia; patient was amazed at how long it lasted. Discussed again about recent diagnosis of schizophrenia and treatment and patient remains amenable to starting Clozaril. 12/27 change to ECT weekly; pt agrees to increase clozapine 12/28; continue treatment plan; agrees to titrate clozapine; ECT Tuesday; continue Ativan 1 mg t.i.d. 12/29 continue with treatment plan 12/30 continue with treatment plan; ECT tomorrow Tuesday. Moving ECT to once a week and dispo planning continues 12/31 ECT to once a week; continue Ativan for several weeks; dispo planning -will continue to titrate Clozaril with dose of 100 mg; currently patient is without psychotic symptoms however he is also getting ECT. It is difficult to know what dose of clozapine he will need once ECT tapers and is discontinued. Patient will need to be monitored closely. 01/01 patient asks for Clozaril to stay at 50 mg since no symptoms; understands that ECT maybe keeps in symptoms at [place] however would like to hold off increasing for now 01/02 patients ANC was 1.5 on 12/26 and today 01/02 it is 1.1 which [address] patient in mild neutropenia; recommendations are to continue treatment but increase monitoring to 3 times a week. 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 guarded. pt reports feeling good today; pt stated, I feel like the medications are working well . He reports sleeping well last night. denies SI/HI/VH/AH. Continue current tx plan. Review of guidlines in [id number]: -Mild neutropenia (absolute neutrophil count [ANC]: 1000 to 1499/microL) ? Continue treatment but increase monitoring frequency to three times per week. -Moderate neutropenia (ANC: 500 to 999/microL) ? Interrupt?clozapine increase monitoring to daily until ANC is 1000/microL at which point clozapine can be reinstituted. -Severe neutropenia/agranulocytosis (ANC: <500/microL) ? Discontinue?clozapine; .Rechallenge should only occur if the benefits outweigh the risks, in consultation with hematology. 01/04 ANC remains stable; continue tx plan Regarding ongoing treatment: Thankfully catatonic symptoms have fully resolved; will continue with ECT once a week; will continue Ativan 1 mg t.i.d. for several weeks and then taper off. Patient is tolerating clozapine and without any psychotic symptoms. Patient has autistic spectrum disorder which is a complicating factor as patient needs help in the community for functioning. Although catatonic symptoms have resolved, patient symptoms were very severe and his progress remains tentative state and he is still at risk for catatonic symptoms to return. Thus patient needs to be carefully monitored by a provider over the next several weeks and needs to have access ECT which will be ongoing. Patient also has schizophrenia. He was started on Clozaril which continues to be titrated; because his psychotic symptoms are mitigated by ECT, he will need continued close observation for psychotic symptoms as well. Patient's situation is currently fragile. He has autism, schizophrenia and is homeless. Applications are in for both [facility] and [facility] however services are not set up yet; social work is working diligently to get him temporarily housed at a family member's nearby where he will have access to ECT. Without housing (and aftercare established), were patient to be discharged today he would be unable to function by himself in the community; he would be vulnerable to predation (as he was in the [facility]) and would quickly decompensate. Plan: q5's SECTION 8/8a; court-ordered ECT and medications Continue Clozapine 50mg qhs (reviewed risks/side effects which patient understands and agrees to; Clozaril chosen since not only is at the least likely to cause catatonia but is sometimes treatment for catatonia) Continue Ativan 1 mg t.i.d. p.o. for both benzo withdrawal and to avoid any return of catatonic symptoms ECT MWF (Court ordered; pt on Section 8/8a) ECT #1 on 12/12 ECT #2 on 12/14 ECT #3 on 12/17 ECT #4 on 12/19 ECT #5 on 12/21 ECT #6 on 01/24 ECT #7 on 12/31 ECT #8 pending 01/09 Patient educated on: diagnosis, medication risk/benefits and ECT Informed Consent: understands Reason for continued inpatient stay Substantial Risk for: stable for discharge Time Spent With Patient Time: Total time managing care of this patient today ____ minutes.
[2025-01-04 20:05] VITALS: BP 124/73; PULSE 102; TEMP 37.2; O2SAT 98
[2025-01-04] MEDS: cloZAPine 25 MG TABLET 50 MG PO (21:23)
[2025-01-05 07:55] VITALS: BP 134/76; PULSE 110; RESP 16; TEMP 36.6; O2SAT 98
[2025-01-05] MEDS: LORazepam 1 MG TABLET PO ×3 (08:31→21:21)
[2025-01-05] MEDS: Multivitamin TABLET 1 TAB PO (08:32)
--- NOTE | 2025-01-05 15:36 | P.PNPSI_ITS ---
Subjective Subjective Date of Service: 01/05/25 Reason For Visit: catatonia/psychosis/autism Interim History: Active on unit, keeping to self. guarded. pt reports doing well today; denies any depression or anxiety. denies SI/HI/VH/AH. he reports sleeping well last night. difficult to engage. observed pacing unit hallway at times. continue current tx plan. Medication Compliance: Yes Side effects from medications: No Mental Status Exam Mental Status Exam Patient Appearance: Appropriate Patient Orientation: Person, Place, Time and Situation Level of Consciousness: Awake Patient Behavior: Appropriate and Guarded Mood Description: Calm Affect Description: Blunted Ability to Follow Directions: Good Speech Pattern: Clear Memory Description: Intact Hallucinations: None Delusions: Not Present Thought Process: Intact Thought Content: positive for Intact Diagnostics Vital Signs (24Hr): Vital Signs - 24 hr 01/04/25 20:05 01/05/25 07:55 Temperature 98.9 F 97.8 F Pulse Rate 102 H 110 H Respiratory Rate 16 Blood Pressure 124/73 134/76 Pulse Oximetry 98 98 Oxygen Delivery Method Room Air BMI result Body Mass Index 32.6 Labs 12/26/24 13:30 12/15/24 07:54 Labs: Laboratory Results - last 48 hr 01/04/25 07:48 Absolute Neuts (auto) 1.2 L Medications Medications Current Medications Al Hydroxide/Mg Hydroxide (Magnesium Hydrox/Alum Hydrox 30 Ml Oral.Susp) 30 ml PO Q6H PRN PRN Reason: Heartburn/Nausea Clozapine (Clozapine 25 Mg Tablet) 50 mg PO BEDTIME [facility] Last Admin: 01/04/25 21:23 Dose: 50 mg Lorazepam (Lorazepam 1 Mg Tablet) 1 mg PO TID [facility] Last Admin: 01/05/25 14:51 Dose: 1 mg Magnesium Hydroxide (Milk Of Magnesia 30 Ml Oral.Susp) 30 ml PO DAILY PRN PRN Reason: Constipation Multivitamins/Vitamin C (Multivitamin Tablet) 1 tab PO DAILY [facility] Last Admin: 01/05/25 08:32 Dose: 1 tab Allergies Allergies Allergy/AdvReac Type Severity Reaction Status Date / Time No Known Allergies Allergy Verified 11/28/24 13:56 Assessment & Plan Assessment & Plan (1) 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 Pt transferred to medical floor from ICU for continued IV benzodiazepines, IV fluids, TPN. Patient court-ordered treatment including ECT. Once patient received ECT he started coming out of catatonic symptoms Initial Impression: It is difficult to know the etiology of catatonia. People with autism, psychotic disorders, or taking a antipsychotic medications are all at increased risk for catatonia and patient has all 3 risk factors (so it seems). Again from collateral it sounds very possible that catatonic symptoms started in the community in the week prior to this admission. Here at [facility] with IV benzodiazepines,, patient had observed but minimal improvement with IV diazepam; now on IV Ativan with some additional improvement. Discussed case thoroughly with Dr. Lira who agrees that current treatment plan of IV Ativan as both appropriate and necessary treatment to resolve catatonia and prevent malignant catatonia. Volleyball Assistant Coach has discussed the possibility of patient needing ECT treatment if IV benzos do not adequately resolve symptoms; family remains cautious about ECT but seems to understand that this could be necessary. After receiving collateral from patient's mother (see below), it seems that patient was demonstrating significant changes in his behavior, very different from his normal way of functioning and his normal expressions of autism. That said , some other family members perspective is with discrepancy from mother's collateral so it is not totally clear. But per the mother, The behavioral changes described sound like prodrome of schizophrenia. Patient's father also observed patient responding to internal stimuli, also very different from his normal expressions. Volleyball Assistant Coach met with and discussed case with patient's father and then talked with patient's mother who currently lives in [place]. Collateral from patient's mother, Cliff, ([phone]) ASD; IEP, honors classes, working; spelling [employer]; graduated [employer]; -around 22 years old, seemed more reclusive and pt started changing -lost job September 2022; missing days, not focused; got fired at next job for going too slow -a year ago, less ADL's, not showering, less motivation, mom thinking more than just ASD since not like this at all in [place] -Refusing to go to appointments. Got him to ED and psych doctor evaluated but was not able to be Sectioned; mom tried other times to get him to doctor, to hospital, but police felt did not meet criteria to section him... -still minimal ADL's; in Fall 2023 started sleeping outside in the park which again, out of character -Jul 2024 making slow movements, like in slow motion, but able to pull out of it; kept sleeping outside in front of her door, peeing on himself or in bottles. -Episodes of staring off and not responding; intermittently would look agitated -Mom sent him to [facility] to be with father -no hx of drug/alcohol use -had gone 36 hours w/out sleep, but not hyperactive, withdrawn and either quiet on laptop or making lots of food but not eating -no seizure hx -no hx of medication Hospital course: Initially patient admitted to for psychosis; quickly developed severe catatonia, rigidity, not eating or drinking or moving or talking at all. Moved to medical floor and then ICU for IV benzos: 1.Initially Patient was 1st sent from to the medical floor. Due to national shortage of liquid Ativan, He received midazolam 2 mg IV however patient had no response. He was then given diazepam 10 mg IV and within 30 seconds, he relaxed his muscles, folded his arms, turned over on his side and moved his legs, 1st natural movements observed for several days. Volleyball Assistant Coach collaborated with Dr. Lira and after literature review, both agreed that patient required immediate IV diazepam treatment to prevent patient from progressing towards a malignant catatonia; since patient had demonstrated initial response to diazepam he should be continued on diazepam; the literature recommends diazepam IV infusion at 10mg/500ml saline at 1.25mg/hour; diazepam infusion not available per hospital formulary so agreed to diazepam 2.5 mg IV push q.2 hours. 2)Hospitalist team/medical floor nursing staff felt patient should be observed on ICU for this administration and he was transferred to the ICU. In the ICU, Patient treated with IV Diazepam for about 36 hours with limited effect, with rigidity having resolved (and periodically briefly opening his eyes) but other symptoms of catatonia remaining including, not following verbal commands and negativism (resistance of examine his manipulation with equal strength). Team agreed to switch from diazepam to Ativan 2 mg IV q.i.d.. After about 12 hours patient improved some more, responding to noxious stimuli/sternal rub and grimaced and actively pushed examiner's hand away. After about 36 hours give or take, dose increase to Ativan 2 mg IV q4H. Patient able to be transferred back to the medical floor. 3) patient on medical floor receiving Ativan 2 mg IV q4h. He remains in the bed with his eyes closed, not responding to verbal commands but is overall moving all limbs more naturally on his own. Negative his remains. ICU 12/06 Patient remains with same minimal improvement observed when starting diazepam; he is moving on his own a little more naturally though still minimally. Will appeared to be trying to open his eyes sometimes when his name is called. Continues with negativism however otherwise is not rigid. Volleyball Assistant Coach met with patient's father and stepmother Debra. Initially family expressed dissatisfaction with treatment and wanted patient transferred to [facility]. Dr. Jiang reached out to [facility] to discuss case and they declined to take patient at this time, not having a bed available and also not being able to provide ECT should patient require it. Patient's family accepted this. Volleyball Assistant Coach again spent about an hour providing education on catatonia, its causes and its treatments, including ECT; explained ECT procedure as well. Dr. Lira also provided the family with printed out literature regarding these topics, including ECT. After discussion, patient's family seemed to agree with current treatment plan of continuing with benzodiazepines. Since patient had only a minimal response to IV diazepam, decision was made to switch to IV Ativan to see if this would be more effective; also discussed with family who agreed with this plan. Volleyball Assistant Coach again offered to talk with family member who is a neurologist and gave them show card writer's contact information to pass along. 12/07 some change in presentation as patient now responsive to noxious stimuli/chest rub, grimacing and pushing examiner's hand away. Volleyball Assistant Coach and Dr. Lira agree this is improvement and evidence that Ativan is helping (progression: rigidity and no response to noxious stimuli -- progressed to absence of rigidity but still no response to noxious stimuli--progressed to now, pt with active response to noxious stimuli). -Literature reviewed and after team discussion agreed to increase IV Ativan to 2 mg q.4h -brain MRI unremarkable -Discussed with Dr. Jiang who felt patient could be safely transferred back to medical floor out of ICU; family informed Medical floor: 12/08 patient remains catatonic, not opening his eyes, not responding to any verbal interactions; remains with negativism; however is moving increasingly or naturally on his own. Discussed with dr. Ernandez. -continue with Ativan 2 mg q4h for now 12/09 Last night/early AM pt spiked fever 105, tachy, tachypneic. Treated with abx, cooling blanket, rectal acetaminophen; CXR negative. Temp came down and pt only mildly tachy; RR 18. Also...This morning, pt woke up, talked with Dr. Ernandez and asked for a sandwich; a little later with nurse, he knew his name, and that he was at [facility]. Later in day, on approach, pt sleeping, sometimes yawning; did not wake up to speaking his name; show card writer did not do sternal rub -tried to test for rigidity but not able to assess since pt's remains w/ negativism (catatonic symptom of resisting examiner w/ equal force) but pt appears to be moving around easily enough on his own. -did not really at risk for NMS since pt only on Diazepam T:99.4 (on cooling blanket) BP:112/68 O2 96% HR 98 RR: 18 lips appear swollen UA unremarkable CXR unremarkable negative covid/rsv/flu Volleyball Assistant Coach discussed case with Dr. Lira; show card writer Discussed case with Dr. Ernandez regarding blood cultures/LP; at this time Dr. Ernandez would like to continue monitoring but advance to LP if patient does not improve. Hospital ran out of Ativan; will switch back to diazepam Impression: Despite the fact that patient spiked a fever and was tachy and tachypneic, the fact that he woke up, was talking, interacting oriented to self and place was very encouraging. Ativan seems to have been more effective than diazepam and remains preferred, however diazepam has had some positive effect. Patient being worked up for infectious etiology, though he does not appear ill looking. It is possible that fever, increased heart rate respiratory rate was a brief crossing into a malignant catatonia; will continue with current treatment plan; ECT remains consider most effective treatment however need court order 12/11 LP so far mostly negative with a few parameters still pending; Afebrile and vitals WNL Patient remains with eyes closed but is moving his body and head around on his own; sometimes role in his head around and around. Still does not respond to verbal stimuli. Waxy flexibility noted; initially only minimal negativeism however this increased with examiners manipulations. Has not open his eyes or talked since Friday 12/08 (per father patient also talked with his mother on the phone, talked with his grandmother). -discussed with pharmacist and some additional Ativan has been procured though in a very limited supply; will restart Ativan IV -of note diazepam infusion is not possible per pharmacy -would also consider memantine, though must be taken p.o. Impression: Patient has certainly improved with IV benzodiazepines, lorazepam seeming to be the most effective. However he remains with severe catatonia. Although he open his eyes and spoke briefly, he has not done so for 3 days and for the past 3 days he has remained with eyes closed, nonverbal, not responding to verbal cues, not eating, not drinking. Thus far, workup for infection has been unremarkable, with only a few LP labs still pending. Because no infectious process can be identified patient is episode of fever, tachycardia and tachypnea remain concerning for possible brief transitioned into malignant catatonia. Currently patient is afebrile and vitals WNL however the risks increase the longer catatonia persists and ECT remains the most viable treatment option -court scheduled for today 12/12 ECT today. Discussed case in detail with Dr. Lira who agreed with proceeding to ECT for following reasons: 1. He remains with Severe catatonia; he is not eating, drinking, talking or opening his eyes, responding to verbal stimuli or getting out of bed; he cannot communicate or receive information; he continues to need IV fluids, nutrition without which he would go into organ failure and . 2. This past weekend, he became febrile with a temperature spiking to 105 degrees; he was tachycardic to 133, tachypneic to 22 RR? temperature lowered but he remained febrile for the next day...... After thorough workup which included an LP, chest x-ray, UA, RSV/COVID/flu? no infectious process identified, other than possible sinusitis. Was this episode of autonomic dysregulation a brief crossover into malignant catatonia? Concern for patients condition to turn malignant increases the longer catatonia persists. 3. The longer a person remains catatonic the harder it becomes to resolve it. Prolonged catatonia correlates with higher risk of serious medical complications, including ?and include the risks associated with continuous IV, [place], and being bed bound. A person can rapidly deteriorate despite being on benzodiaepines. 4. Literature recommends a Switch to ECT when: Lorazepam (Ativan) fails after 3?5 days of adequate dosing (e.g., 6?12 mg/day) to prevent poor outcome (Electroconvulsive therapy in catatonic patients: Efficacy and predictors of response (2015)) -Will continue with ECT WMF Will treat with Diazepam 5mg IV TID to treat for Benzo withdrawal and to treat catatonia; as pt improves, will taper benzo 12/13 Patient open his eyes, started answering questions by nodding his head and remained so throughout the day. Volleyball Assistant Coach explained patient's condition and treatment though doubtful patient understood much of it. Volleyball Assistant Coach gave him 2 doses of IV Ativan 2 mg which seemed to help because Later on show card writer was informed the patient was again talking, eating and drinking. ECT tomorrow but if patient remains much improved, maybe able to return to the psychiatric unit -discussed case with Dr. Serrano and Dr. Lira and will continue benzos both to help make sure catatonia does not return and to avoid benzo withdrawal RETURNED TO PSYCH UNIT M5 (12/14): Patient significantly improved, walking, talking, eating, drinking and moving about. Patient was able to return to the psych floor. Plan is to continue ECT doing better on ativan 1mg tid, on 1:1 eating- some odd behaviors but no longer fully catatonic! 12/16 - dc 1:1, pt requested ensure with meals- maybe be rebound hunger from not eating while catatonic. 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 Patient eating, drinking, talking, walking and interacting appropriately (keeping in mind ASD) Patient does not remember any of the events preceding this admission or during until getting to the psychiatric floor; catatonia and treatment explained to patient and he is amenable to continuing with ECT and benzodiazepines. Patient says he feels back to his regular self in his father was present, says he thinks so too. Patient denies any psychotic symptoms at all Although patient is much improved, he remained significantly vulnerable to return of catatonic symptoms. Discussed with Dr. Lira who agrees to Continue with ECT on 12/19 and 12/21 so as to prevent any return of catatonic symptoms; will continue with Ativan but likely further taper at some point. Will continue to assess. Regarding guardianship, at this time show card writer does not see a need for patient to have a guardian. Currently however patient has no outpatient providers and no where to live; where patient to be discharged now he would likely become quickly impaired 12/19 Patient says he is doing well. He remains feeling like his normal self. Patient continues to deny any AH or paranoid ideations and says he does not remember having any of these before. He says he finds the atmosphere on the unit to be pretty good and has no complaints. Patient asked about ECT, how much more he is going to get and agrees to treatment plan. Discussed post discharge and patient said he liked living in [place] and is considering going back to his mother's there but wonders if staying here might be easier. He said he also is considering going to his aunt's house in [place]. 12/20 Patient remains organized in speech and behavior. Talked about ECT, talked about his goals. Patient said he would like to find working computers, something he has been interested in for years. He has some ambivalence about returning to [place] since he says he and his mom have very different view on things; she very much wanted him to join the [employer] though he did not think it was necessarily a good fit for him. Discussed autism and patient knows that he has had this diagnosis and has worked through it for years. He continues to deny any psychotic symptoms at all. -patient's mother told social staff worker that after having talked with them on the phone for the past several days she says he sounds like his regular self. 12/21 no change in presentation; no problems with ECT denies any psychiatric symptoms; denies psychotic symptoms, Pt shared ambivalence about returning to live w/ mom in [place]; he agrees that option of staying in pen[facility]iary here is precarious. Family meeting tuesday -ECT on tuesday and then will re-assess -continue ativan 1 mg TID (to prevent return of symptoms) 12/23 Continue tx 12/24 pt denies any psychotic symptoms. He had ECT today and says he's having trouble with recent memories but can not specify further. Family meeting today. -at this point will hold ECT for Tue; will consider either Tuesday or next week. Pt remains highly vulnerable to re-emergence of catatonic symptoms, however, now complaining of memory issues. 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 Patient shared about psychotic symptoms: In [place] (in the weeks before coming to [facility]): pt acknowledged that he was having hallucinations prior to admission. For several weeks, He says in [place] i was experiencing hallucinations...i heard voices telling me to bring material...[with his mind] and i felt like i had to bring them this material or i would be in big trouble... (not sure who they were). He felt like he had no choice in the matter.. Pt was sometimes sleeping on a park bench and thinks the voices were related to this [facility] (on way to [facility]): When he got to [facility], he had hallucinations it was pretty intense there...the voices were definetly stronger saying this is not reality...the reality you think you know is not real..it's all fake... and voices were putting more pressure on me to do what they wanted...they wanted me to do various stretches...and according to them i was failing and they threatened to disban me.... At this point there was more than one voice talking together about him. He found it very distracting and says this was why he was walking around in circles. Shared that AH told him everyone was a dog which he thought was true... (no VH). That's what i was being told...i was made up of multiple dogs... The voices told him to spin in a [place] to leave the realm... which is what police found him doing while in [facility]. At penitentiary in [facility]: delusions/AH persisted; he had belief that he was a child being disciplined by others...AH telling him to beat himself up for discipline; he hit himself a few times but then realized not to... Looking back now, he knows it was his mind not playing tricks on him. Pt says since being here at the hospital he has not had any psychotic symptoms. He says this was hard to talk about but is comfortable talking about it now. -reviewed diagnosis and treatment; discussed antipsychotic medications including Clozaril and discussed risks/side effects including but not limited to agranulocytosis patient understands and agrees to start Clozaril 12/26 Patient reports that he is good and just thinking about catatonia; patient was amazed at how long it lasted. Discussed again about recent diagnosis of schizophrenia and treatment and patient remains amenable to starting Clozaril. 12/27 change to ECT weekly; pt agrees to increase clozapine 12/28; continue treatment plan; agrees to titrate clozapine; ECT Tuesday; continue Ativan 1 mg t.i.d. 12/29 continue with treatment plan 12/30 continue with treatment plan; ECT tomorrow Tuesday. Moving ECT to once a week and dispo planning continues 12/31 ECT to once a week; continue Ativan for several weeks; dispo planning -will continue to titrate Clozaril with dose of 100 mg; currently patient is without psychotic symptoms however he is also getting ECT. It is difficult to know what dose of clozapine he will need once ECT tapers and is discontinued. Patient will need to be monitored closely. 01/01 patient asks for Clozaril to stay at 50 mg since no symptoms; understands that ECT maybe keeps in symptoms at [place] however would like to hold off increasing for now 01/02 patients ANC was 1.5 on 12/26 and today 01/02 it is 1.1 which [address] patient in mild neutropenia; recommendations are to continue treatment but increase monitoring to 3 times a week. 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 guarded. pt reports feeling good today; pt stated, I feel like the medications are working well . He reports sleeping well last night. denies SI/HI/VH/AH. Continue current tx plan. 01/05: Active on unit, keeping to self. guarded. pt reports doing well today; denies any depression or anxiety. denies SI/HI/VH/AH. he reports sleeping well last night. difficult to engage. observed pacing unit hallway at times. continue current tx plan Review of guidlines in [id number]: -Mild neutropenia (absolute neutrophil count [ANC]: 1000 to 1499/microL) ? Continue treatment but increase monitoring frequency to three times per week. -Moderate neutropenia (ANC: 500 to 999/microL) ? Interrupt?clozapine increase monitoring to daily until ANC is 1000/microL at which point clozapine can be reinstituted. -Severe neutropenia/agranulocytosis (ANC: <500/microL) ? Discontinue?clozapine; .Rechallenge should only occur if the benefits outweigh the risks, in consultation with hematology. 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 for several weeks and then taper off. Patient is tolerating clozapine and without any psychotic symptoms. Patient has autistic spectrum disorder which is a complicating factor as patient needs help in the community for functioning. Although catatonic symptoms have resolved, patient symptoms were very severe and his progress remains tentative state and he is still at risk for catatonic symptoms to return. Thus patient needs to be carefully monitored by a provider over the next several weeks and needs to have access ECT which will be ongoing. Patient also has schizophrenia. He was started on Clozaril which continues to be titrated; because his psychotic symptoms are mitigated by ECT, he will need continued close observation for psychotic symptoms as well. Patient's situation is currently fragile. He has autism, schizophrenia and is homeless. Applications are in for both [facility] and [facility] however services are not set up yet; social work is working diligently to get him temporarily housed at a family member's nearby where he will have access to ECT. Without housing (and aftercare established), were patient to be discharged today he would be unable to function by himself in the community; he would be vulnerable to predation (as he was [facility] the [facility]) and would quickly decompensate. Plan: q5's SECTION 8/8a; court-ordered ECT and medications Continue Clozapine 50mg qhs (reviewed risks/side effects which patient understands and agrees to; Clozaril chosen since not only is at the least likely to cause catatonia but is sometimes treatment for catatonia) Continue Ativan 1 mg t.i.d. p.o. for both benzo withdrawal and to avoid any return of catatonic symptoms ECT MWF (Court ordered; pt on Section 8/8a) ECT #1 on 12/12 ECT #2 on 12/14 ECT #3 on 12/17 ECT #4 on 12/19 ECT #5 on 12/21 ECT #6 on 01/24 ECT #7 on 12/31 ECT changing to weekly; however next available time is 01/09 Patient educated on: medication risk/benefits Reason for continued inpatient stay Substantial Risk for: med/psych decompensation Time Spent With Patient Time: Total time managing care of this patient today __10__ minutes.
[2025-01-05] MEDS: cloZAPine 25 MG TABLET 50 MG PO (21:21)
[2025-01-05 21:22] VITALS: BP 130/82; PULSE 114; TEMP 37; O2SAT 98
[2025-01-06 08:09] VITALS: BP 130/68; PULSE 99; RESP 16; TEMP 36.6; O2SAT 97
[2025-01-06] MEDS: LORazepam 1 MG TABLET PO ×3 (08:39→21:28)
[2025-01-06] MEDS: Multivitamin TABLET 1 TAB PO (08:39)
--- NOTE | 2025-01-06 15:10 | HO.PSYCHPN ---
Subjective Subjective Date of Service: 01/06/25 Reason For Visit: catatonia/psychosis/autism Interim History: Active on unit, keeping to self. guarded. pt reports feeling good ; denies any issues at this time. denies SI/HI/VH/AH. difficult to engage. continue current tx plan. Medication Compliance: Yes Side effects from medications: No Attending Groups: Yes Mental Status Exam Mental Status Exam Patient Appearance: Appropriate Patient Orientation: Person, Place, Time and Situation Level of Consciousness: Awake Patient Behavior: Appropriate and Guarded Mood Description: Calm Affect Description: Blunted Patient Cognition Impaired: No Ability to Follow Directions: Good Speech Pattern: Clear Memory Description: Intact Hallucinations: None Delusions: Not Present Thought Process: Intact Thought Content: positive for Intact Diagnostics Vital Signs (24Hr): Vital Signs - 24 hr 01/05/25 21:22 01/06/25 08:09 Temperature 98.6 F 97.8 F Pulse Rate 114 H 99 Respiratory Rate 16 Blood Pressure 130/82 130/68 Pulse Oximetry 98 97 Oxygen Delivery Method Room Air Room Air BMI result Body Mass Index 32.6 Labs 12/26/24 13:30 12/15/24 07:54 Medications Medications Current Medications Al Hydroxide/Mg Hydroxide (Magnesium Hydrox/Alum Hydrox 30 Ml Oral.Susp) 30 ml PO Q6H PRN PRN Reason: Heartburn/Nausea Clozapine (Clozapine 25 Mg Tablet) 50 mg PO BEDTIME [facility] Last Admin: 01/05/25 21:21 Dose: 50 mg Lorazepam (Lorazepam 1 Mg Tablet) 1 mg PO TID [facility] Last Admin: 01/06/25 08:39 Dose: 1 mg Magnesium Hydroxide (Milk Of Magnesia 30 Ml Oral.Susp) 30 ml PO DAILY PRN PRN Reason: Constipation Multivitamins/Vitamin C (Multivitamin Tablet) 1 tab PO DAILY [facility] Last Admin: 01/06/25 08:39 Dose: 1 tab Allergies Allergies Allergy/AdvReac Type Severity Reaction Status Date / Time No Known Allergies Allergy Verified 11/28/24 13:56 Assessment & Plan Assessment & Plan (1) 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 Pt transferred to medical floor from ICU for continued IV benzodiazepines, IV fluids, TPN. Patient court-ordered treatment including ECT. Once patient received ECT he started coming out of catatonic symptoms Initial Impression: It is difficult to know the etiology of catatonia. People with autism, psychotic disorders, or taking a antipsychotic medications are all at increased risk for catatonia and patient has all 3 risk factors (so it seems). Again from collateral it sounds very possible that catatonic symptoms started in the community in the week prior to this admission. Here at [facility] with IV benzodiazepines,, patient had observed but minimal improvement with IV diazepam; now on IV Ativan with some additional improvement. Discussed case thoroughly with Dr. Lira who agrees that current treatment plan of IV Ativan as both appropriate and necessary treatment to resolve catatonia and prevent malignant catatonia. Head Still Operator has discussed the possibility of patient needing ECT treatment if IV benzos do not adequately resolve symptoms; family remains cautious about ECT but seems to understand that this could be necessary. After receiving collateral from patient's mother (see below), it seems that patient was demonstrating significant changes in his behavior, very different from his normal way of functioning and his normal expressions of autism. That said , some other family members perspective is with discrepancy from mother's collateral so it is not totally clear. But per the mother, The behavioral changes described sound like prodrome of schizophrenia. Patient's father also observed patient responding to internal stimuli, also very different from his normal expressions. Head Still Operator met with and discussed case with patient's father and then talked with patient's mother who currently lives in [place]. Collateral from patient's mother, Cliff, ([phone]) ASD; IEP, honors classes, working; spelling [employer]; graduated [employer]; -around 22 years old, seemed more reclusive and pt started changing -lost job September 2022; missing days, not focused; got fired at next job for going too slow -a year ago, less ADL's, not showering, less motivation, mom thinking more than just ASD since not like this at all in [place] -Refusing to go to appointments. Got him to ED and psych doctor evaluated but was not able to be Sectioned; mom tried other times to get him to doctor, to hospital, but police felt did not meet criteria to section him... -still minimal ADL's; in Fall 2023 started sleeping outside in the park which again, out of character -Jul 2024 making slow movements, like in slow motion, but able to pull out of it; kept sleeping outside in front of her door, peeing on himself or in bottles. -Episodes of staring off and not responding; intermittently would look agitated -Mom sent him to [place] to be with father -no hx of drug/alcohol use -had gone 36 hours w/out sleep, but not hyperactive, withdrawn and either quiet on laptop or making lots of food but not eating -no seizure hx -no hx of medication Hospital course: Initially patient admitted to for psychosis; quickly developed severe catatonia, rigidity, not eating or drinking or moving or talking at all. Moved to medical floor and then ICU for IV benzos: 1.Initially Patient was 1st sent from to the medical floor. Due to national shortage of liquid Ativan, He received midazolam 2 mg IV however patient had no response. He was then given diazepam 10 mg IV and within 30 seconds, he relaxed his muscles, folded his arms, turned over on his side and moved his legs, 1st natural movements observed for several days. Head Still Operator collaborated with Dr. Lira and after literature review, both agreed that patient required immediate IV diazepam treatment to prevent patient from progressing towards a malignant catatonia; since patient had demonstrated initial response to diazepam he should be continued on diazepam; the literature recommends diazepam IV infusion at 10mg/500ml saline at 1.25mg/hour; diazepam infusion not available per hospital formulary so agreed to diazepam 2.5 mg IV push q.2 hours. 2)Hospitalist team/medical floor nursing staff felt patient should be observed on ICU for this administration and he was transferred to the ICU. In the ICU, Patient treated with IV Diazepam for about 36 hours with limited effect, with rigidity having resolved (and periodically briefly opening his eyes) but other symptoms of catatonia remaining including, not following verbal commands and negativism (resistance of examine his manipulation with equal strength). Team agreed to switch from diazepam to Ativan 2 mg IV q.i.d.. After about 12 hours patient improved some more, responding to noxious stimuli/sternal rub and grimaced and actively pushed examiner's hand away. After about 36 hours give or take, dose increase to Ativan 2 mg IV q4H. Patient able to be transferred back to the medical floor. 3) patient on medical floor receiving Ativan 2 mg IV q4h. He remains in the bed with his eyes closed, not responding to verbal commands but is overall moving all limbs more naturally on his own. Negative his remains. ICU 12/06 Patient remains with same minimal improvement observed when starting diazepam; he is moving on his own a little more naturally though still minimally. Will appeared to be trying to open his eyes sometimes when his name is called. Continues with negativism however otherwise is not rigid. Head Still Operator met with patient's father and stepmother Debra. Initially family expressed dissatisfaction with treatment and wanted patient transferred to [facility]. Dr. Jiang reached out to [facility] to discuss case and they declined to take patient at this time, not having a bed available and also not being able to provide ECT should patient require it. Patient's family accepted this. Head Still Operator again spent about an hour providing education on catatonia, its causes and its treatments, including ECT; explained ECT procedure as well. Dr. Lira also provided the family with printed out literature regarding these topics, including ECT. After discussion, patient's family seemed to agree with current treatment plan of continuing with benzodiazepines. Since patient had only a minimal response to IV diazepam, decision was made to switch to IV Ativan to see if this would be more effective; also discussed with family who agreed with this plan. Head Still Operator again offered to talk with family member who is a neurologist and gave them procedure writer's contact information to pass along. 12/07 some change in presentation as patient now responsive to noxious stimuli/chest rub, grimacing and pushing examiner's hand away. Head Still Operator and Dr. Lira agree this is improvement and evidence that Ativan is helping (progression: rigidity and no response to noxious stimuli -- progressed to absence of rigidity but still no response to noxious stimuli--progressed to now, pt with active response to noxious stimuli). -Literature reviewed and after team discussion agreed to increase IV Ativan to 2 mg q.4h -brain MRI unremarkable -Discussed with Dr. Jiang who felt patient could be safely transferred back to medical floor out of ICU; family informed Medical floor: 12/08 patient remains catatonic, not opening his eyes, not responding to any verbal interactions; remains with negativism; however is moving increasingly or naturally on his own. Discussed with dr. Ernandez. -continue with Ativan 2 mg q4h for now 12/09 Last night/early AM pt spiked fever 105, tachy, tachypneic. Treated with abx, cooling blanket, rectal acetaminophen; CXR negative. Temp came down and pt only mildly tachy; RR 18. Also...This morning, pt woke up, talked with Dr. Ernandez and asked for a sandwich; a little later with nurse, he knew his name, and that he was at [facility]. Later in day, on approach, pt sleeping, sometimes yawning; did not wake up to speaking his name; procedure writer did not do sternal rub -tried to test for rigidity but not able to assess since pt's remains w/ negativism (catatonic symptom of resisting examiner w/ equal force) but pt appears to be moving around easily enough on his own. -did not really at risk for NMS since pt only on Diazepam T:99.4 (on cooling blanket) BP:112/68 O2 96% HR 98 RR: 18 lips appear swollen UA unremarkable CXR unremarkable negative covid/rsv/flu Head Still Operator discussed case with Dr. Lira; procedure writer Discussed case with Dr. Ernandez regarding blood cultures/LP; at this time Dr. Ernandez would like to continue monitoring but advance to LP if patient does not improve. Hospital ran out of Ativan; will switch back to diazepam Impression: Despite the fact that patient spiked a fever and was tachy and tachypneic, the fact that he woke up, was talking, interacting oriented to self and place was very encouraging. Ativan seems to have been more effective than diazepam and remains preferred, however diazepam has had some positive effect. Patient being worked up for infectious etiology, though he does not appear ill looking. It is possible that fever, increased heart rate respiratory rate was a brief crossing into a malignant catatonia; will continue with current treatment plan; ECT remains consider most effective treatment however need court order 12/11 LP so far mostly negative with a few parameters still pending; Afebrile and vitals WNL Patient remains with eyes closed but is moving his body and head around on his own; sometimes role in his head around and around. Still does not respond to verbal stimuli. Waxy flexibility noted; initially only minimal negativeism however this increased with examiners manipulations. Has not open his eyes or talked since Friday 12/08 (per father patient also talked with his mother on the phone, talked with his grandmother). -discussed with pharmacist and some additional Ativan has been procured though in a very limited supply; will restart Ativan IV -of note diazepam infusion is not possible per pharmacy -would also consider memantine, though must be taken p.o. Impression: Patient has certainly improved with IV benzodiazepines, lorazepam seeming to be the most effective. However he remains with severe catatonia. Although he open his eyes and spoke briefly, he has not done so for 3 days and for the past 3 days he has remained with eyes closed, nonverbal, not responding to verbal cues, not eating, not drinking. Thus far, workup for infection has been unremarkable, with only a few LP labs still pending. Because no infectious process can be identified patient is episode of fever, tachycardia and tachypnea remain concerning for possible brief transitioned into malignant catatonia. Currently patient is afebrile and vitals WNL however the risks increase the longer catatonia persists and ECT remains the most viable treatment option -court scheduled for today 12/12 ECT today. Discussed case in detail with Dr. Lira who agreed with proceeding to ECT for following reasons: 1. He remains with Severe catatonia; he is not eating, drinking, talking or opening his eyes, responding to verbal stimuli or getting out of bed; he cannot communicate or receive information; he continues to need IV fluids, nutrition without which he would go into organ failure and . 2. This past weekend, he became febrile with a temperature spiking to 105 degrees; he was tachycardic to 133, tachypneic to 22 RR? temperature lowered but he remained febrile for the next day...... After thorough workup which included an LP, chest x-ray, UA, RSV/COVID/flu? no infectious process identified, other than possible sinusitis. Was this episode of autonomic dysregulation a brief crossover into malignant catatonia? Concern for patients condition to turn malignant increases the longer catatonia persists. 3. The longer a person remains catatonic the harder it becomes to resolve it. Prolonged catatonia correlates with higher risk of serious medical complications, including ?and include the risks associated with continuous IV, [place], and being bed bound. A person can rapidly deteriorate despite being on benzodiaepines. 4. Literature recommends a Switch to ECT when: Lorazepam (Ativan) fails after 3?5 days of adequate dosing (e.g., 6?12 mg/day) to prevent poor outcome (Electroconvulsive therapy in catatonic patients: Efficacy and predictors of response (2015)) -Will continue with ECT WMF Will treat with Diazepam 5mg IV TID to treat for Benzo withdrawal and to treat catatonia; as pt improves, will taper benzo 12/13 Patient open his eyes, started answering questions by nodding his head and remained so throughout the day. Head Still Operator explained patient's condition and treatment though doubtful patient understood much of it. Head Still Operator gave him 2 doses of IV Ativan 2 mg which seemed to help because Later on procedure writer was informed the patient was again talking, eating and drinking. ECT tomorrow but if patient remains much improved, maybe able to return to the psychiatric unit -discussed case with Dr. Serrano and Dr. Lira and will continue benzos both to help make sure catatonia does not return and to avoid benzo withdrawal RETURNED TO PSYCH UNIT M5 (12/14): Patient significantly improved, walking, talking, eating, drinking and moving about. Patient was able to return to the psych floor. Plan is to continue ECT doing better on ativan 1mg tid, on 1:1 eating- some odd behaviors but no longer fully catatonic! 12/16 - dc 1:1, pt requested ensure with meals- maybe be rebound hunger from not eating while catatonic. reports fine no clear report from patient of prior days when he was catatonic- but now sleeping, eating and drinking fluids- denies si/hi/psychosis- refused ativan this am but couldn't say why - When asked about student/work - he says he had a job in [employer]- Case discussed with dr Lira who feels ECT helped- when ativan hadn't now doing well on on current ativan- no longer need for 1:1 12/18 Patient remains significantly improved and perhaps with no residual catatonic symptoms. Patient eating, drinking, talking, walking and interacting appropriately (keeping in mind ASD) Patient does not remember any of the events preceding this admission or during until getting to the psychiatric floor; catatonia and treatment explained to patient and he is amenable to continuing with ECT and benzodiazepines. Patient says he feels back to his regular self in his father was present, says he thinks so too. Patient denies any psychotic symptoms at all Although patient is much improved, he remained significantly vulnerable to return of catatonic symptoms. Discussed with Dr. Lira who agrees to Continue with ECT on 12/19 and 12/21 so as to prevent any return of catatonic symptoms; will continue with Ativan but likely further taper at some point. Will continue to assess. Regarding guardianship, at this time procedure writer does not see a need for patient to have a guardian. Currently however patient has no outpatient providers and no where to live; where patient to be discharged now he would likely become quickly impaired 12/19 Patient says he is doing well. He remains feeling like his normal self. Patient continues to deny any AH or paranoid ideations and says he does not remember having any of these before. He says he finds the atmosphere on the unit to be pretty good and has no complaints. Patient asked about ECT, how much more he is going to get and agrees to treatment plan. Discussed post discharge and patient said he liked living in [place] and is considering going back to his mother's there but wonders if staying here might be easier. He said he also is considering going to his aunt's house in [place]. 12/20 Patient remains organized in speech and behavior. Talked about ECT, talked about his goals. Patient said he would like to find working computers, something he has been interested in for years. He has some ambivalence about returning to [place] since he says he and his mom have very different view on things; she very much wanted him to join the [employer] though he did not think it was necessarily a good fit for him. Discussed autism and patient knows that he has had this diagnosis and has worked through it for years. He continues to deny any psychotic symptoms at all. -patient's mother told social service worker that after having talked with them on the phone for the past several days she says he sounds like his regular self. 12/21 no change in presentation; no problems with ECT denies any psychiatric symptoms; denies psychotic symptoms, Pt shared ambivalence about returning to live w/ mom in [place]; he agrees that option of staying in [facility] here is precarious. Family meeting tuesday -ECT on tuesday and then will re-assess -continue ativan 1 mg TID (to prevent return of symptoms) 12/23 Continue tx 12/24 pt denies any psychotic symptoms. He had ECT today and says he's having trouble with recent memories but can not specify further. Family meeting today. -at this point will hold ECT for Tue; will consider either Tuesday or next week. Pt remains highly vulnerable to re-emergence of catatonic symptoms, however, now complaining of memory issues. 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 Patient shared about psychotic symptoms: In [place] (in the weeks before coming to [facility]): pt acknowledged that he was having hallucinations prior to admission. For several weeks, He says in [place] i was experiencing hallucinations...i heard voices telling me to bring material...[with his mind] and i felt like i had to bring them this material or i would be in big trouble... (not sure who they were). He felt like he had no choice in the matter.. Pt was sometimes sleeping on a park bench and thinks the voices were related to this [facility] (on way to [facility]): When he got to [facility], he had hallucinations it was pretty intense there...the voices were definetly stronger saying this is not reality...the reality you think you know is not real..it's all fake... and voices were putting more pressure on me to do what they wanted...they wanted me to do various stretches...and according to them i was failing and they threatened to disban me.... At this point there was more than one voice talking together about him. He found it very distracting and says this was why he was walking around in circles. Shared that AH told him everyone was a dog which he thought was true... (no VH). That's what i was being told...i was made up of multiple dogs... The voices told him to spin in a [place] to leave the realm... which is what police found him doing while in [facility]. At [facility] in [facility]: delusions/AH persisted; he had belief that he was a child being disciplined by others...AH telling him to beat himself up for discipline; he hit himself a few times but then realized not to... Looking back now, he knows it was his mind not playing tricks on him. Pt says since being here at the hospital he has not had any psychotic symptoms. He says this was hard to talk about but is comfortable talking about it now. -reviewed diagnosis and treatment; discussed antipsychotic medications including Clozaril and discussed risks/side effects including but not limited to agranulocytosis patient understands and agrees to start Clozaril 12/26 Patient reports that he is good and just thinking about catatonia; patient was amazed at how long it lasted. Discussed again about recent diagnosis of schizophrenia and treatment and patient remains amenable to starting Clozaril. 12/27 change to ECT weekly; pt agrees to increase clozapine 12/28; continue treatment plan; agrees to titrate clozapine; ECT Tuesday; continue Ativan 1 mg t.i.d. 12/29 continue with treatment plan 12/30 continue with treatment plan; ECT tomorrow Tuesday. Moving ECT to once a week and dispo planning continues 12/31 ECT to once a week; continue Ativan for several weeks; dispo planning -will continue to titrate Clozaril with dose of 100 mg; currently patient is without psychotic symptoms however he is also getting ECT. It is difficult to know what dose of clozapine he will need once ECT tapers and is discontinued. Patient will need to be monitored closely. 01/01 patient asks for Clozaril to stay at 50 mg since no symptoms; understands that ECT maybe keeps in symptoms at [place] however would like to hold off increasing for now 01/02 patients ANC was 1.5 on 12/26 and today 01/02 it is 1.1 which [address] patient in mild neutropenia; recommendations are to continue treatment but increase monitoring to 3 times a week. 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 guarded. pt reports feeling good today; pt stated, I feel like the medications are working well . He reports sleeping well last night. denies SI/HI/VH/AH. Continue current tx plan. 01/05: Active on unit, keeping to self. guarded. pt reports doing well today; denies any depression or anxiety. denies SI/HI/VH/AH. he reports sleeping well last night. difficult to engage. observed pacing unit hallway at times. continue current tx plan 01/06: continue current tx plan. Review of guidlines in [id number]: -Mild neutropenia (absolute neutrophil count [ANC]: 1000 to 1499/microL) ? Continue treatment but increase monitoring frequency to three times per week. -Moderate neutropenia (ANC: 500 to 999/microL) ? Interrupt?clozapine increase monitoring to daily until ANC is 1000/microL at which point clozapine can be reinstituted. -Severe neutropenia/agranulocytosis (ANC: <500/microL) ? Discontinue?clozapine; .Rechallenge should only occur if the benefits outweigh the risks, in consultation with hematology. 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 for several weeks and then taper off. Patient is tolerating clozapine and without any psychotic symptoms. Patient has autistic spectrum disorder which is a complicating factor as patient needs help in the community for functioning. Although catatonic symptoms have resolved, patient symptoms were very severe and his progress remains tentative state and he is still at risk for catatonic symptoms to return. Thus patient needs to be carefully monitored by a provider over the next several weeks and needs to have access ECT which will be ongoing. Patient also has schizophrenia. He was started on Clozaril which continues to be titrated; because his psychotic symptoms are mitigated by ECT, he will need continued close observation for psychotic symptoms as well. Patient's situation is currently fragile. He has autism, schizophrenia and is homeless. Applications are in for both [facility] and [facility] however services are not set up yet; social work is working diligently to get him temporarily housed at a family member's nearby where he will have access to ECT. Without housing (and aftercare established), were patient to be discharged today he would be unable to function by himself in the community; he would be vulnerable to predation (as he was in the [facility]) and would quickly decompensate. Plan: q5's SECTION 8/8a; court-ordered ECT and medications Continue Clozapine 50mg qhs (reviewed risks/side effects which patient understands and agrees to; Clozaril chosen since not only is at the least likely to cause catatonia but is sometimes treatment for catatonia) Continue Ativan 1 mg t.i.d. p.o. for both benzo withdrawal and to avoid any return of catatonic symptoms ECT MWF (Court ordered; pt on Section 8/8a) ECT #1 on 12/12 ECT #2 on 12/14 ECT #3 on 12/17 ECT #4 on 12/19 ECT #5 on 12/21 ECT #6 on 01/24 ECT #7 on 12/31 ECT changing to weekly; however next available time is 01/09 Patient educated on: medication risk/benefits and therapeutic strategies Reason for continued inpatient stay Substantial Risk for: med/psych decompensation Time Spent With Patient Time: Total time managing care of this patient today _10___ minutes.
--- NOTE | 2025-01-06 15:32 | PC.NURSE ---
unable to pull/administer 1500 scheduled medications as pyxis is having difficulty and unable to access medication. Will attempt to try again shortly.
[2025-01-06 20:41] VITALS: BP 116/69; PULSE 105; RESP 16; TEMP 36.9; O2SAT 98
[2025-01-06] MEDS: cloZAPine 25 MG TABLET 50 MG PO (21:27)
[2025-01-07 08:09] VITALS: BP 133/67; PULSE 115; RESP 16; TEMP 36.7; O2SAT 98
[2025-01-07] MEDS: Multivitamin TABLET 1 TAB PO (08:54)
[2025-01-07] MEDS: LORazepam 1 MG TABLET PO ×3 (08:54→21:39)
[2025-01-07 08:58] LABS: Neut%MD 55.8 %; Neutrophils Absolute Auto 3.1 x10*3/uL (2.0-8.3); WBCANC 5.6 X10*3/uL
--- NOTE | 2025-01-07 16:16 | HO.PSYCHPN ---
Subjective Subjective Date of Service: 01/07/25 Reason For Visit: catatonia/psychosis/autism Interim History: Similar to days prior. guarded. pt reports feeling good ; denies any issues at this time. denies SI/HI/VH/AH. difficult to engage. Pt reports he is hoping to go home soon . continue tx plan. Medication Compliance: Yes Side effects from medications: No Attending Groups: Yes Mental Status Exam Mental Status Exam Patient Appearance: Appropriate Patient Orientation: Person, Place, Time and Situation Level of Consciousness: Awake Patient Behavior: Appropriate and Guarded Mood Description: Calm Affect Description: Blunted Patient Cognition Impaired: No Ability to Follow Directions: Good Speech Pattern: Clear Memory Description: Intact Hallucinations: None Delusions: Not Present Thought Process: Intact Thought Content: positive for Intact Diagnostics Vital Signs (24Hr): Vital Signs - 24 hr 01/06/25 20:41 01/07/25 08:09 Temperature 98.5 F 98.1 F Pulse Rate 105 H 115 H Respiratory Rate 16 16 Blood Pressure 116/69 133/67 Pulse Oximetry 98 98 Oxygen Delivery Method Room Air Room Air BMI result Body Mass Index 32.6 Labs 12/26/24 13:30 12/15/24 07:54 Labs: Laboratory Results - last 48 hr 01/07/25 08:35 Absolute Neuts (auto) 3.1 Medications Medications Current Medications Al Hydroxide/Mg Hydroxide (Magnesium Hydrox/Alum Hydrox 30 Ml Oral.Susp) 30 ml PO Q6H PRN PRN Reason: Heartburn/Nausea Clozapine (Clozapine 25 Mg Tablet) 50 mg PO BEDTIME [facility] Last Admin: 01/06/25 21:27 Dose: 50 mg Lorazepam (Lorazepam 1 Mg Tablet) 1 mg PO TID [facility] Last Admin: 01/07/25 15:01 Dose: 1 mg Magnesium Hydroxide (Milk Of Magnesia 30 Ml Oral.Susp) 30 ml PO DAILY PRN PRN Reason: Constipation Multivitamins/Vitamin C (Multivitamin Tablet) 1 tab PO DAILY [facility] Last Admin: 01/07/25 08:54 Dose: 1 tab Allergies Allergies Allergy/AdvReac Type Severity Reaction Status Date / Time No Known Allergies Allergy Verified 11/28/24 13:56 Assessment & Plan Assessment & Plan (1) 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 Pt transferred to medical floor from ICU for continued IV benzodiazepines, IV fluids, TPN. Patient court-ordered treatment including ECT. Once patient received ECT he started coming out of catatonic symptoms Initial Impression: It is difficult to know the etiology of catatonia. People with autism, psychotic disorders, or taking a antipsychotic medications are all at increased risk for catatonia and patient has all 3 risk factors (so it seems). Again from collateral it sounds very possible that catatonic symptoms started in the community in the week prior to this admission. Here at [facility] with IV benzodiazepines,, patient had observed but minimal improvement with IV diazepam; now on IV Ativan with some additional improvement. Discussed case thoroughly with Dr. Lira who agrees that current treatment plan of IV Ativan as both appropriate and necessary treatment to resolve catatonia and prevent malignant catatonia. [employer] has discussed the possibility of patient needing ECT treatment if IV benzos do not adequately resolve symptoms; family remains cautious about ECT but seems to understand that this could be necessary. After receiving collateral from patient's mother (see below), it seems that patient was demonstrating significant changes in his behavior, very different from his normal way of functioning and his normal expressions of autism. That said , some other family members perspective is with discrepancy from mother's collateral so it is not totally clear. But per the mother, The behavioral changes described sound like prodrome of schizophrenia. Patient's father also observed patient responding to internal stimuli, also very different from his normal expressions. [employer] met with and discussed case with patient's father and then talked with patient's mother who currently lives in [place]. Collateral from patient's mother, Cliff, ([phone]) ASD; IEP, honors classes, working; spelling [employer]; graduated [employer]; -around 22 years old, seemed more reclusive and pt started changing -lost job September 2022; missing days, not focused; got fired at next job for going too slow -a year ago, less ADL's, not showering, less motivation, mom thinking more than just ASD since not like this at all in [place] -Refusing to go to appointments. Got him to ED and psych doctor evaluated but was not able to be Sectioned; mom tried other times to get him to doctor, to hospital, but police felt did not meet criteria to section him... -still minimal ADL's; in Fall 2023 started sleeping outside in the park which again, out of character -Jul 2024 making slow movements, like in slow motion, but able to pull out of it; kept sleeping outside in front of her door, peeing on himself or in bottles. -Episodes of staring off and not responding; intermittently would look agitated -Mom sent him to [place] to be with father -no hx of drug/alcohol use -had gone 36 hours w/out sleep, but not hyperactive, withdrawn and either quiet on laptop or making lots of food but not eating -no seizure hx -no hx of medication Hospital course: Initially patient admitted to for psychosis; quickly developed severe catatonia, rigidity, not eating or drinking or moving or talking at all. Moved to medical floor and then ICU for IV benzos: 1.Initially Patient was 1st sent from to the medical floor. Due to national shortage of liquid Ativan, He received midazolam 2 mg IV however patient had no response. He was then given diazepam 10 mg IV and within 30 seconds, he relaxed his muscles, folded his arms, turned over on his side and moved his legs, 1st natural movements observed for several days. [employer] collaborated with Dr. Liar and after literature review, both agreed that patient required immediate IV diazepam treatment to prevent patient from progressing towards a malignant catatonia; since patient had demonstrated initial response to diazepam he should be continued on diazepam; the literature recommends diazepam IV infusion at 10mg/500ml saline at 1.25mg/hour; diazepam infusion not available per hospital formulary so agreed to diazepam 2.5 mg IV push q.2 hours. 2)Hospitalist team/medical floor nursing staff felt patient should be observed on ICU for this administration and he was transferred to the ICU. In the ICU, Patient treated with IV Diazepam for about 36 hours with limited effect, with rigidity having resolved (and periodically briefly opening his eyes) but other symptoms of catatonia remaining including, not following verbal commands and negativism (resistance of examine his manipulation with equal strength). Team agreed to switch from diazepam to Ativan 2 mg IV q.i.d.. After about 12 hours patient improved some more, responding to noxious stimuli/sternal rub and grimaced and actively pushed examiner's hand away. After about 36 hours give or take, dose increase to Ativan 2 mg IV q4H. Patient able to be transferred back to the medical floor. 3) patient on medical floor receiving Ativan 2 mg IV q4h. He remains in the bed with his eyes closed, not responding to verbal commands but is overall moving all limbs more naturally on his own. Negative his remains. ICU 12/06 Patient remains with same minimal improvement observed when starting diazepam; he is moving on his own a little more naturally though still minimally. Will appeared to be trying to open his eyes sometimes when his name is called. Continues with negativism however otherwise is not rigid. [employer] met with patient's father and stepmother Debra. Initially family expressed dissatisfaction with treatment and wanted patient transferred to [facility]. Dr. Jiang reached out to [facility] to discuss case and they declined to take patient at this time, not having a bed available and also not being able to provide ECT should patient require it. Patient's family accepted this. [employer] again spent about an hour providing education on catatonia, its causes and its treatments, including ECT; explained ECT procedure as well. Dr. Lira also provided the family with printed out literature regarding these topics, including ECT. After discussion, patient's family seemed to agree with current treatment plan of continuing with benzodiazepines. Since patient had only a minimal response to IV diazepam, decision was made to switch to IV Ativan to see if this would be more effective; also discussed with family who agreed with this plan. [employer] again offered to talk with family member who is a neurologist and gave them documentation writer's contact information to pass along. 12/07 some change in presentation as patient now responsive to noxious stimuli/chest rub, grimacing and pushing examiner's hand away. [employer] and Dr. Lira agree this is improvement and evidence that Ativan is helping (progression: rigidity and no response to noxious stimuli -- progressed to absence of rigidity but still no response to noxious stimuli--progressed to now, pt with active response to noxious stimuli). -Literature reviewed and after team discussion agreed to increase IV Ativan to 2 mg q.4h -brain MRI unremarkable -Discussed with Dr. Jiang who felt patient could be safely transferred back to medical floor out of ICU; family informed Medical floor: 12/08 patient remains catatonic, not opening his eyes, not responding to any verbal interactions; remains with negativism; however is moving increasingly or naturally on his own. Discussed with dr. Ernandez. -continue with Ativan 2 mg q4h for now 12/09 Last night/early AM pt spiked fever 105, tachy, tachypneic. Treated with abx, cooling blanket, rectal acetaminophen; CXR negative. Temp came down and pt only mildly tachy; RR 18. Also...This morning, pt woke up, talked with Dr. Ernandez and asked for a sandwich; a little later with nurse, he knew his name, and that he was at [facility]. Later in day, on approach, pt sleeping, sometimes yawning; did not wake up to speaking his name; documentation writer did not do sternal rub -tried to test for rigidity but not able to assess since pt's remains w/ negativism (catatonic symptom of resisting examiner w/ equal force) but pt appears to be moving around easily enough on his own. -did not really at risk for NMS since pt only on Diazepam T:99.4 (on cooling blanket) BP:112/68 O2 96% HR 98 RR: 18 lips appear swollen UA unremarkable CXR unremarkable negative covid/rsv/flu [employer] discussed case with Dr. Lira; documentation writer Discussed case with Dr. Ernandez regarding blood cultures/LP; at this time Dr. Ernandez would like to continue monitoring but advance to LP if patient does not improve. Hospital ran out of Ativan; will switch back to diazepam Impression: Despite the fact that patient spiked a fever and was tachy and tachypneic, the fact that he woke up, was talking, interacting oriented to self and place was very encouraging. Ativan seems to have been more effective than diazepam and remains preferred, however diazepam has had some positive effect. Patient being worked up for infectious etiology, though he does not appear ill looking. It is possible that fever, increased heart rate respiratory rate was a brief crossing into a malignant catatonia; will continue with current treatment plan; ECT remains consider most effective treatment however need court order 12/11 LP so far mostly negative with a few parameters still pending; Afebrile and vitals WNL Patient remains with eyes closed but is moving his body and head around on his own; sometimes role in his head around and around. Still does not respond to verbal stimuli. Waxy flexibility noted; initially only minimal negativeism however this increased with examiners manipulations. Has not open his eyes or talked since Friday 12/08 (per father patient also talked with his mother on the phone, talked with his grandmother). -discussed with pharmacist and some additional Ativan has been procured though in a very limited supply; will restart Ativan IV -of note diazepam infusion is not possible per pharmacy -would also consider memantine, though must be taken p.o. Impression: Patient has certainly improved with IV benzodiazepines, lorazepam seeming to be the most effective. However he remains with severe catatonia. Although he open his eyes and spoke briefly, he has not done so for 3 days and for the past 3 days he has remained with eyes closed, nonverbal, not responding to verbal cues, not eating, not drinking. Thus far, workup for infection has been unremarkable, with only a few LP labs still pending. Because no infectious process can be identified patient is episode of fever, tachycardia and tachypnea remain concerning for possible brief transitioned into malignant catatonia. Currently patient is afebrile and vitals WNL however the risks increase the longer catatonia persists and ECT remains the most viable treatment option -court scheduled for today 12/12 ECT today. Discussed case in detail with Dr. Lira who agreed with proceeding to ECT for following reasons: 1. He remains with Severe catatonia; he is not eating, drinking, talking or opening his eyes, responding to verbal stimuli or getting out of bed; he cannot communicate or receive information; he continues to need IV fluids, nutrition without which he would go into organ failure and . 2. This past weekend, he became febrile with a temperature spiking to 105 degrees; he was tachycardic to 133, tachypneic to 22 RR? temperature lowered but he remained febrile for the next day...... After thorough workup which included an LP, chest x-ray, UA, RSV/COVID/flu? no infectious process identified, other than possible sinusitis. Was this episode of autonomic dysregulation a brief crossover into malignant catatonia? Concern for patients condition to turn malignant increases the longer catatonia persists. 3. The longer a person remains catatonic the harder it becomes to resolve it. Prolonged catatonia correlates with higher risk of serious medical complications, including ?and include the risks associated with continuous IV, [place], and being bed bound. A person can rapidly deteriorate despite being on benzodiaepines. 4. Literature recommends a Switch to ECT when: Lorazepam (Ativan) fails after 3?5 days of adequate dosing (e.g., 6?12 mg/day) to prevent poor outcome (Electroconvulsive therapy in catatonic patients: Efficacy and predictors of response (2015)) -Will continue with ECT WMF Will treat with Diazepam 5mg IV TID to treat for Benzo withdrawal and to treat catatonia; as pt improves, will taper benzo 12/13 Patient open his eyes, started answering questions by nodding his head and remained so throughout the day. [employer] explained patient's condition and treatment though doubtful patient understood much of it. [employer] gave him 2 doses of IV Ativan 2 mg which seemed to help because Later on documentation writer was informed the patient was again talking, eating and drinking. ECT tomorrow but if patient remains much improved, maybe able to return to the psychiatric unit -discussed case with Dr. Serrano and Dr. Lira and will continue benzos both to help make sure catatonia does not return and to avoid benzo withdrawal RETURNED TO PSYCH UNIT M5 (12/14): Patient significantly improved, walking, talking, eating, drinking and moving about. Patient was able to return to the psych floor. Plan is to continue ECT doing better on ativan 1mg tid, on 1:1 eating- some odd behaviors but no longer fully catatonic! 12/16 - dc 1:1, pt requested ensure with meals- maybe be rebound hunger from not eating while catatonic. 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 Patient eating, drinking, talking, walking and interacting appropriately (keeping in mind ASD) Patient does not remember any of the events preceding this admission or during until getting to the psychiatric floor; catatonia and treatment explained to patient and he is amenable to continuing with ECT and benzodiazepines. Patient says he feels back to his regular self in his father was present, says he thinks so too. Patient denies any psychotic symptoms at all Although patient is much improved, he remained significantly vulnerable to return of catatonic symptoms. Discussed with Dr. Lira who agrees to Continue with ECT on 12/19 and 12/21 so as to prevent any return of catatonic symptoms; will continue with Ativan but likely further taper at some point. Will continue to assess. Regarding guardianship, at this time documentation writer does not see a need for patient to have a guardian. Currently however patient has no outpatient providers and no where to live; where patient to be discharged now he would likely become quickly impaired 12/19 Patient says he is doing well. He remains feeling like his normal self. Patient continues to deny any AH or paranoid ideations and says he does not remember having any of these before. He says he finds the atmosphere on the unit to be pretty good and has no complaints. Patient asked about ECT, how much more he is going to get and agrees to treatment plan. Discussed post discharge and patient said he liked living in [place] and is considering going back to his mother's there but wonders if staying here might be easier. He said he also is considering going to his aunt's house in [place]. 12/20 Patient remains organized in speech and behavior. Talked about ECT, talked about his goals. Patient said he would like to find working computers, something he has been interested in for years. He has some ambivalence about returning to [place] since he says he and his mom have very different view on things; she very much wanted him to join the [employer] though he did not think it was necessarily a good fit for him. Discussed autism and patient knows that he has had this diagnosis and has worked through it for years. He continues to deny any psychotic symptoms at all. -patient's mother told social security specialist that after having talked with them on the phone for the past several days she says he sounds like his regular self. 12/21 no change in presentation; no problems with ECT denies any psychiatric symptoms; denies psychotic symptoms, Pt shared ambivalence about returning to live w/ mom in [place]; he agrees that option of staying in long term here is precarious. Family meeting tuesday -ECT on tuesday and then will re-assess -continue ativan 1 mg TID (to prevent return of symptoms) 12/23 Continue tx 12/24 pt denies any psychotic symptoms. He had ECT today and says he's having trouble with recent memories but can not specify further. Family meeting today. -at this point will hold ECT for Tue; will consider either Tuesday or next week. Pt remains highly vulnerable to re-emergence of catatonic symptoms, however, now complaining of memory issues. 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 Patient shared about psychotic symptoms: In [place] (in the weeks before coming to [facility]): pt acknowledged that he was having hallucinations prior to admission. For several weeks, He says in [place] i was experiencing hallucinations...i heard voices telling me to bring material...[with his mind] and i felt like i had to bring them this material or i would be in big trouble... (not sure who they were). He felt like he had no choice in the matter.. Pt was sometimes sleeping on a park bench and thinks the voices were related to this [facility] (on way to [facility]): When he got to [facility], he had hallucinations it was pretty intense there...the voices were definetly stronger saying this is not reality...the reality you think you know is not real..it's all fake... and voices were putting more pressure on me to do what they wanted...they wanted me to do various stretches...and according to them i was failing and they threatened to disban me.... At this point there was more than one voice talking together about him. He found it very distracting and says this was why he was walking around in circles. Shared that AH told him everyone was a dog which he thought was true... (no [facility]). That's what i was being told...i was made up of multiple dogs... The voices told him to spin in a gambell to leave the realm... which is what police found him doing while in [facility]. At long term in [facility]: delusions/AH persisted; he had belief that he was a child being disciplined by others...AH telling him to beat himself up for discipline; he hit himself a few times but then realized not to... Looking back now, he knows it was his mind not playing tricks on him. Pt says since being here at the hospital he has not had any psychotic symptoms. He says this was hard to talk about but is comfortable talking about it now. -reviewed diagnosis and treatment; discussed antipsychotic medications including Clozaril and discussed risks/side effects including but not limited to agranulocytosis patient understands and agrees to start Clozaril 12/26 Patient reports that he is good and just thinking about catatonia; patient was amazed at how long it lasted. Discussed again about recent diagnosis of schizophrenia and treatment and patient remains amenable to starting Clozaril. 12/27 change to ECT weekly; pt agrees to increase clozapine 12/28; continue treatment plan; agrees to titrate clozapine; ECT Tuesday; continue Ativan 1 mg t.i.d. 12/29 continue with treatment plan 12/30 continue with treatment plan; ECT tomorrow Tuesday. Moving ECT to once a week and dispo planning continues 12/31 ECT to once a week; continue Ativan for several weeks; dispo planning -will continue to titrate Clozaril with dose of 100 mg; currently patient is without psychotic symptoms however he is also getting ECT. It is difficult to know what dose of clozapine he will need once ECT tapers and is discontinued. Patient will need to be monitored closely. 01/01 patient asks for Clozaril to stay at 50 mg since no symptoms; understands that ECT maybe keeps in symptoms at [place] however would like to hold off increasing for now 01/02 patients ANC was 1.5 on 12/26 and today 01/02 it is 1.1 which [address] patient in mild neutropenia; recommendations are to continue treatment but increase monitoring to 3 times a week. 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 guarded. pt reports feeling good today; pt stated, I feel like the medications are working well . He reports sleeping well last night. denies SI/HI/VH/AH. Continue current tx plan. 01/05: Active on unit, keeping to self. guarded. pt reports doing well today; denies any depression or anxiety. denies SI/HI/VH/AH. he reports sleeping well last night. difficult to engage. observed pacing unit hallway at times. continue current tx plan 01/06: continue current tx plan. 01/07: continue tx plan Review of guidlines in [id number]: -Mild neutropenia (absolute neutrophil count [ANC]: 1000 to 1499/microL) ? Continue treatment but increase monitoring frequency to three times per week. -Moderate neutropenia (ANC: 500 to 999/microL) ? Interrupt?clozapine increase monitoring to daily until ANC is 1000/microL at which point clozapine can be reinstituted. -Severe neutropenia/agranulocytosis (ANC: <500/microL) ? Discontinue?clozapine; .Rechallenge should only occur if the benefits outweigh the risks, in consultation with hematology. 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 for several weeks and then taper off. Patient is tolerating clozapine and without any psychotic symptoms. Patient has autistic spectrum disorder which is a complicating factor as patient needs help in the community for functioning. Although catatonic symptoms have resolved, patient symptoms were very severe and his progress remains tentative state and he is still at risk for catatonic symptoms to return. Thus patient needs to be carefully monitored by a provider over the next several weeks and needs to have access ECT which will be ongoing. Patient also has schizophrenia. He was started on Clozaril which continues to be titrated; because his psychotic symptoms are mitigated by ECT, he will need continued close observation for psychotic symptoms as well. Patient's situation is currently fragile. He has autism, schizophrenia and is homeless. Applications are in for both [facility] and [facility] however services are not set up yet; social work is working diligently to get him temporarily housed at a family member's nearby where he will have access to ECT. Without housing (and aftercare established), were patient to be discharged today he would be unable to function by himself in the community; he would be vulnerable to predation (as he was in the long term) and would quickly decompensate. Plan: q5's SECTION 8/8a; court-ordered ECT and medications Continue Clozapine 50mg qhs (reviewed risks/side effects which patient understands and agrees to; Clozaril chosen since not only is at the least likely to cause catatonia but is sometimes treatment for catatonia) Continue Ativan 1 mg t.i.d. p.o. for both benzo withdrawal and to avoid any return of catatonic symptoms ECT MWF (Court ordered; pt on Section 8/8a) ECT #1 on 12/12 ECT #2 on 12/14 ECT #3 on 12/17 ECT #4 on 12/19 ECT #5 on 12/21 ECT #6 on 01/24 ECT #7 on 12/31 ECT changing to weekly; however next available time is 01/09 Patient educated on: medication risk/benefits Reason for continued inpatient stay Substantial Risk for: med/psych decompensation Time Spent With Patient Time: Total time managing care of this patient today _10___ minutes.
[2025-01-07 21:09] VITALS: BP 138/69; PULSE 102; RESP 16; TEMP 36.9; O2SAT 97
[2025-01-07] MEDS: cloZAPine 25 MG TABLET 50 MG PO (21:39)
[2025-01-08 07:36] VITALS: BP 115/59; PULSE 97; RESP 16; TEMP 36.8; O2SAT 96
[2025-01-08] MEDS: Multivitamin TABLET 1 TAB PO (09:08)
[2025-01-08] MEDS: LORazepam 1 MG TABLET PO ×2 (09:08→14:40)
--- NOTE | 2025-01-08 09:20 | HO.PSYCHPN ---
Subjective Subjective Date of Service: 01/08/25 Reason For Visit: catatonia/psychosis/autism Interim History: met with pt; discussed with team pt remains stable; ANC stable. Agrees to ECT tomorrow and appreciates dispo plan to dc to grandma's this Mental Status Exam Mental Status Exam Narrative: Pt is alert and oriented; behavior is cooperative, friendly and calm; without any catatonic symptoms; periodically squints his eyes; patient is not in distress; dressed in hospital attire with unkempt hair but adequate hygiene; mood is described as good and affect congruent; eye contact a little avoidant; Speech is minimal but normal rate, volume and prosody and not pressured; no psychomotor agitation/retardation present; thought process is goal directed, concrete; Thought content is on past psychotic symptoms, dx, treatment; no delusional ideations expressed; denies any SI/HI. Denies AVH; not clear if patient appears internally preoccupied Patients insight and judgment adequate and at baseline Diagnostics Vital Signs (24Hr): Vital Signs - 24 hr 01/07/25 21:09 01/08/25 07:36 Temperature 98.5 F 98.3 F Pulse Rate 102 H 97 Respiratory Rate 16 16 Blood Pressure 138/69 115/59 L Pulse Oximetry 97 96 Oxygen Delivery Method Room Air BMI result Body Mass Index 32.6 Labs 12/26/24 13:30 12/15/24 07:54 Labs: Laboratory Results - last 48 hr 01/07/25 08:35 Absolute Neuts (auto) 3.1 Medications Medications Current Medications Al Hydroxide/Mg Hydroxide (Magnesium Hydrox/Alum Hydrox 30 Ml Oral.Susp) 30 ml PO Q6H PRN PRN Reason: Heartburn/Nausea Clozapine (Clozapine 25 Mg Tablet) 50 mg PO BEDTIME [facility] Last Admin: 01/07/25 21:39 Dose: 50 mg Lorazepam (Lorazepam 1 Mg Tablet) 1 mg PO TID ARNIE Last Admin: 01/08/25 09:08 Dose: 1 mg Magnesium Hydroxide (Milk Of Magnesia 30 Ml Oral.Susp) 30 ml PO DAILY PRN PRN Reason: Constipation Multivitamins/Vitamin C (Multivitamin Tablet) 1 tab PO DAILY [facility] Last Admin: 01/08/25 09:08 Dose: 1 tab Allergies Allergies Allergy/AdvReac Type Severity Reaction Status Date / Time No Known Allergies Allergy Verified 11/28/24 13:56 Assessment & Plan Assessment & Plan (1) 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 Pt transferred to medical floor from ICU for continued IV benzodiazepines, IV fluids, TPN. Patient court-ordered treatment including ECT. Once patient received ECT he started coming out of catatonic symptoms Initial Impression: It is difficult to know the etiology of catatonia. People with autism, psychotic disorders, or taking a antipsychotic medications are all at increased risk for catatonia and patient has all 3 risk factors (so it seems). Again from collateral it sounds very possible that catatonic symptoms started in the community in the week prior to this admission. Here at [facility] with IV benzodiazepines,, patient had observed but minimal improvement with IV diazepam; now on IV Ativan with some additional improvement. Discussed case thoroughly with Dr. Lira who agrees that current treatment plan of IV Ativan as both appropriate and necessary treatment to resolve catatonia and prevent malignant catatonia. Group Insurance Special Agent has discussed the possibility of patient needing ECT treatment if IV benzos do not adequately resolve symptoms; family remains cautious about ECT but seems to understand that this could be necessary. After receiving collateral from patient's mother (see below), it seems that patient was demonstrating significant changes in his behavior, very different from his normal way of functioning and his normal expressions of autism. That said , some other family members perspective is with discrepancy from mother's collateral so it is not totally clear. But per the mother, The behavioral changes described sound like prodrome of schizophrenia. Patient's father also observed patient responding to internal stimuli, also very different from his normal expressions. Group Insurance Special Agent met with and discussed case with patient's father and then talked with patient's mother who currently lives in [place]. Collateral from patient's mother, Owenmejia, ([phone]) ASD; IEP, honors classes, working; mananing [employer]; graduated [employer]; -around 22 years old, seemed more reclusive and pt started changing -lost job September 2022; missing days, not focused; got fired at next job for going too slow -a year ago, less ADL's, not showering, less motivation, mom thinking more than just ASD since not like this at all in [employer] -Refusing to go to appointments. Got him to ED and psych doctor evaluated but was not able to be Sectioned; mom tried other times to get him to doctor, to hospital, but police felt did not meet criteria to section him... -still minimal ADL's; in Fall 2023 started sleeping outside in the park which again, out of character -Jul 2024 making slow movements, like in slow motion, but able to pull out of it; kept sleeping outside in front of her door, peeing on himself or in bottles. -Episodes of staring off and not responding; intermittently would look agitated -Mom sent him to [place] to be with father -no hx of drug/alcohol use -had gone 36 hours w/out sleep, but not hyperactive, withdrawn and either quiet on laptop or making lots of food but not eating -no seizure hx -no hx of medication Hospital course: Initially patient admitted to for psychosis; quickly developed severe catatonia, rigidity, not eating or drinking or moving or talking at all. Moved to medical floor and then ICU for IV benzos: 1.Initially Patient was 1st sent from to the medical floor. Due to national shortage of liquid Ativan, He received midazolam 2 mg IV however patient had no response. He was then given diazepam 10 mg IV and within 30 seconds, he relaxed his muscles, folded his arms, turned over on his side and moved his legs, 1st natural movements observed for several days. Group Insurance Special Agent collaborated with Dr. Lira and after literature review, both agreed that patient required immediate IV diazepam treatment to prevent patient from progressing towards a malignant catatonia; since patient had demonstrated initial response to diazepam he should be continued on diazepam; the literature recommends diazepam IV infusion at 10mg/500ml saline at 1.25mg/hour; diazepam infusion not available per hospital formulary so agreed to diazepam 2.5 mg IV push q.2 hours. 2)Hospitalist team/medical floor nursing staff felt patient should be observed on ICU for this administration and he was transferred to the ICU. In the ICU, Patient treated with IV Diazepam for about 36 hours with limited effect, with rigidity having resolved (and periodically briefly opening his eyes) but other symptoms of catatonia remaining including, not following verbal commands and negativism (resistance of examine his manipulation with equal strength). Team agreed to switch from diazepam to Ativan 2 mg IV q.i.d.. After about 12 hours patient improved some more, responding to noxious stimuli/sternal rub and grimaced and actively pushed examiner's hand away. After about 36 hours give or take, dose increase to Ativan 2 mg IV q4H. Patient able to be transferred back to the medical floor. 3) patient on medical floor receiving Ativan 2 mg IV q4h. He remains in the bed with his eyes closed, not responding to verbal commands but is overall moving all limbs more naturally on his own. Negative his remains. ICU 12/06 Patient remains with same minimal improvement observed when starting diazepam; he is moving on his own a little more naturally though still minimally. Will appeared to be trying to open his eyes sometimes when his name is called. Continues with negativism however otherwise is not rigid. Group Insurance Special Agent met with patient's father and stepmother Debra. Initially family expressed dissatisfaction with treatment and wanted patient transferred to [facility]. Dr. Jiang reached out to [facility] to discuss case and they declined to take patient at this time, not having a bed available and also not being able to provide ECT should patient require it. Patient's family accepted this. Group Insurance Special Agent again spent about an hour providing education on catatonia, its causes and its treatments, including ECT; explained ECT procedure as well. Dr. Lira also provided the family with printed out literature regarding these topics, including ECT. After discussion, patient's family seemed to agree with current treatment plan of continuing with benzodiazepines. Since patient had only a minimal response to IV diazepam, decision was made to switch to IV Ativan to see if this would be more effective; also discussed with family who agreed with this plan. Group Insurance Special Agent again offered to talk with family member who is a neurologist and gave them fiction and nonfiction prose writer's contact information to pass along. 12/07 some change in presentation as patient now responsive to noxious stimuli/chest rub, grimacing and pushing examiner's hand away. Group Insurance Special Agent and Dr. Lira agree this is improvement and evidence that Ativan is helping (progression: rigidity and no response to noxious stimuli -- progressed to absence of rigidity but still no response to noxious stimuli--progressed to now, pt with active response to noxious stimuli). -Literature reviewed and after team discussion agreed to increase IV Ativan to 2 mg q.4h -brain MRI unremarkable -Discussed with Dr. Jiang who felt patient could be safely transferred back to medical floor out of ICU; family informed Medical floor: 12/08 patient remains catatonic, not opening his eyes, not responding to any verbal interactions; remains with negativism; however is moving increasingly or naturally on his own. Discussed with dr. Ernandez. -continue with Ativan 2 mg q4h for now 12/09 Last night/early AM pt spiked fever 105, tachy, tachypneic. Treated with abx, cooling blanket, rectal acetaminophen; CXR negative. Temp came down and pt only mildly tachy; RR 18. Also...This morning, pt woke up, talked with Dr. Ernandez and asked for a sandwich; a little later with nurse, he knew his name, and that he was at [facility]. Later in day, on approach, pt sleeping, sometimes yawning; did not wake up to speaking his name; fiction and nonfiction prose writer did not do sternal rub -tried to test for rigidity but not able to assess since pt's remains w/ negativism (catatonic symptom of resisting examiner w/ equal force) but pt appears to be moving around easily enough on his own. -did not really at risk for NMS since pt only on Diazepam T:99.4 (on cooling blanket) BP:112/68 O2 96% HR 98 RR: 18 lips appear swollen UA unremarkable CXR unremarkable negative covid/rsv/flu Group Insurance Special Agent discussed case with Dr. Lira; fiction and nonfiction prose writer Discussed case with Dr. Ernandez regarding blood cultures/LP; at this time Dr. Ernandez would like to continue monitoring but advance to LP if patient does not improve. Hospital ran out of Ativan; will switch back to diazepam Impression: Despite the fact that patient spiked a fever and was tachy and tachypneic, the fact that he woke up, was talking, interacting oriented to self and place was very encouraging. Ativan seems to have been more effective than diazepam and remains preferred, however diazepam has had some positive effect. Patient being worked up for infectious etiology, though he does not appear ill looking. It is possible that fever, increased heart rate respiratory rate was a brief crossing into a malignant catatonia; will continue with current treatment plan; ECT remains consider most effective treatment however need court order 12/11 LP so far mostly negative with a few parameters still pending; Afebrile and vitals WNL Patient remains with eyes closed but is moving his body and head around on his own; sometimes role in his head around and around. Still does not respond to verbal stimuli. Waxy flexibility noted; initially only minimal negativeism however this increased with examiners manipulations. Has not open his eyes or talked since Friday 12/08 (per father patient also talked with his mother on the phone, talked with his grandmother). -discussed with pharmacist and some additional Ativan has been procured though in a very limited supply; will restart Ativan IV -of note diazepam infusion is not possible per pharmacy -would also consider memantine, though must be taken p.o. Impression: Patient has certainly improved with IV benzodiazepines, lorazepam seeming to be the most effective. However he remains with severe catatonia. Although he open his eyes and spoke briefly, he has not done so for 3 days and for the past 3 days he has remained with eyes closed, nonverbal, not responding to verbal cues, not eating, not drinking. Thus far, workup for infection has been unremarkable, with only a few LP labs still pending. Because no infectious process can be identified patient is episode of fever, tachycardia and tachypnea remain concerning for possible brief transitioned into malignant catatonia. Currently patient is afebrile and vitals WNL however the risks increase the longer catatonia persists and ECT remains the most viable treatment option -court scheduled for today 12/12 ECT today. Discussed case in detail with Dr. Lira who agreed with proceeding to ECT for following reasons: 1. He remains with Severe catatonia; he is not eating, drinking, talking or opening his eyes, responding to verbal stimuli or getting out of bed; he cannot communicate or receive information; he continues to need IV fluids, nutrition without which he would go into organ failure and . 2. This past weekend, he became febrile with a temperature spiking to 105 degrees; he was tachycardic to 133, tachypneic to 22 RR? temperature lowered but he remained febrile for the next day...... After thorough workup which included an LP, chest x-ray, UA, RSV/COVID/flu? no infectious process identified, other than possible sinusitis. Was this episode of autonomic dysregulation a brief crossover into malignant catatonia? Concern for patients condition to turn malignant increases the longer catatonia persists. 3. The longer a person remains catatonic the harder it becomes to resolve it. Prolonged catatonia correlates with higher risk of serious medical complications, including ?and include the risks associated with continuous IV, S[place], and being bed bound. A person can rapidly deteriorate despite being on benzodiaepines. 4. Literature recommends a Switch to ECT when: Lorazepam (Ativan) fails after 3?5 days of adequate dosing (e.g., 6?12 mg/day) to prevent poor outcome (Electroconvulsive therapy in catatonic patients: Efficacy and predictors of response (2015)) -Will continue with ECT [facility] Will treat with Diazepam 5mg IV TID to treat for Benzo withdrawal and to treat catatonia; as pt improves, will taper benzo 12/13 Patient open his eyes, started answering questions by nodding his head and remained so throughout the day. Group Insurance Special Agent explained patient's condition and treatment though doubtful patient understood much of it. Group Insurance Special Agent gave him 2 doses of IV Ativan 2 mg which seemed to help because Later on fiction and nonfiction prose writer was informed the patient was again talking, eating and drinking. ECT tomorrow but if patient remains much improved, maybe able to return to the psychiatric unit -discussed case with Dr. Serrano and Dr. Lira and will continue benzos both to help make sure catatonia does not return and to avoid benzo withdrawal RETURNED TO PSYCH UNIT M5 (12/14): Patient significantly improved, walking, talking, eating, drinking and moving about. Patient was able to return to the psych floor. Plan is to continue ECT doing better on ativan 1mg tid, on 1:1 eating- some odd behaviors but no longer fully catatonic! 12/16 - dc 1:1, pt requested ensure with meals- maybe be rebound hunger from not eating while catatonic. 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 Patient eating, drinking, talking, walking and interacting appropriately (keeping in mind ASD) Patient does not remember any of the events preceding this admission or during until getting to the psychiatric floor; catatonia and treatment explained to patient and he is amenable to continuing with ECT and benzodiazepines. Patient says he feels back to his regular self in his father was present, says he thinks so too. Patient denies any psychotic symptoms at all Although patient is much improved, he remained significantly vulnerable to return of catatonic symptoms. Discussed with Dr. Lira who agrees to Continue with ECT on 12/19 and 12/21 so as to prevent any return of catatonic symptoms; will continue with Ativan but likely further taper at some point. Will continue to assess. Regarding guardianship, at this time fiction and nonfiction prose writer does not see a need for patient to have a guardian. Currently however patient has no outpatient providers and no where to live; where patient to be discharged now he would likely become quickly impaired 12/19 Patient says he is doing well. He remains feeling like his normal self. Patient continues to deny any AH or paranoid ideations and says he does not remember having any of these before. He says he finds the atmosphere on the unit to be pretty good and has no complaints. Patient asked about ECT, how much more he is going to get and agrees to treatment plan. Discussed post discharge and patient said he liked living in [place] and is considering going back to his mother's there but wonders if staying here might be easier. He said he also is considering going to his aunt's house in [place]. 12/20 Patient remains organized in speech and behavior. Talked about ECT, talked about his goals. Patient said he would like to find working computers, something he has been interested in for years. He has some ambivalence about returning to [place] since he says he and his mom have very different view on things; she very much wanted him to join the [employer] though he did not think it was necessarily a good fit for him. Discussed autism and patient knows that he has had this diagnosis and has worked through it for years. He continues to deny any psychotic symptoms at all. -patient's mother told adoption social worker that after having talked with them on the phone for the past several days she says he sounds like his regular self. 12/21 no change in presentation; no problems with ECT denies any psychiatric symptoms; denies psychotic symptoms, Pt shared ambivalence about returning to live w/ mom in [place]; he agrees that option of staying in retirement here is precarious. Family meeting tuesday -ECT on tuesday and then will re-assess -continue ativan 1 mg TID (to prevent return of symptoms) 12/23 Continue tx 12/24 pt denies any psychotic symptoms. He had ECT today and says he's having trouble with recent memories but can not specify further. Family meeting today. -at this point will hold ECT for Tue; will consider either Tuesday or next week. Pt remains highly vulnerable to re-emergence of catatonic symptoms, however, now complaining of memory issues. 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 Patient shared about psychotic symptoms: In [place] (in the weeks before coming to [facility]): pt acknowledged that he was having hallucinations prior to admission. For several weeks, He says in [place] i was experiencing hallucinations...i heard voices telling me to bring material...[with his mind] and i felt like i had to bring them this material or i would be in big trouble... (not sure who they were). He felt like he had no choice in the matter.. Pt was sometimes sleeping on a park bench and thinks the voices were related to this [facility] (on way to [facility]): When he got to [facility], he had hallucinations it was pretty intense there...the voices were definetly stronger saying this is not reality...the reality you think you know is not real..it's all fake... and voices were putting more pressure on me to do what they wanted...they wanted me to do various stretches...and according to them i was failing and they threatened to disban me.... At this point there was more than one voice talking together about him. He found it very distracting and says this was why he was walking around in circles. Shared that AH told him everyone was a dog which he thought was true... (no VH). That's what i was being told...i was made up of multiple dogs... The voices told him to spin in a tuscarora to leave the realm... which is what police found him doing while in [facility]. At retirement in [facility]: delusions/AH persisted; he had belief that he was a child being disciplined by others...AH telling him to beat himself up for discipline; he hit himself a few times but then realized not to... Looking back now, he knows it was his mind not playing tricks on him. Pt says since being here at the hospital he has not had any psychotic symptoms. He says this was hard to talk about but is comfortable talking about it now. -reviewed diagnosis and treatment; discussed antipsychotic medications including Clozaril and discussed risks/side effects including but not limited to agranulocytosis patient understands and agrees to start Clozaril 12/26 Patient reports that he is good and just thinking about catatonia; patient was amazed at how long it lasted. Discussed again about recent diagnosis of schizophrenia and treatment and patient remains amenable to starting Clozaril. 12/27 change to ECT weekly; pt agrees to increase clozapine 12/28; continue treatment plan; agrees to titrate clozapine; ECT Tuesday; continue Ativan 1 mg t.i.d. 12/29 continue with treatment plan 12/30 continue with treatment plan; ECT tomorrow Tuesday. Moving ECT to once a week and dispo planning continues 12/31 ECT to once a week; continue Ativan for several weeks; dispo planning -will continue to titrate Clozaril with dose of 100 mg; currently patient is without psychotic symptoms however he is also getting ECT. It is difficult to know what dose of clozapine he will need once ECT tapers and is discontinued. Patient will need to be monitored closely. 01/01 patient asks for Clozaril to stay at 50 mg since no symptoms; understands that ECT maybe keeps in symptoms at [place] however would like to hold off increasing for now 01/02 patients ANC was 1.5 on 12/26 and today 01/02 it is 1.1 which places patient in mild neutropenia; recommendations are to continue treatment but increase monitoring to 3 times a week. 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 guarded. pt reports feeling good today; pt stated, I feel like the medications are working well . He reports sleeping well last night. denies SI/HI/VH/AH. Continue current tx plan. 01/04 ANC remains stable 01/05: Active on unit, keeping to self. guarded. pt reports doing well today; denies any depression or anxiety. denies SI/HI/VH/AH. he reports sleeping well last night. difficult to engage. observed pacing unit hallway at times. continue current tx plan 01/06: continue current tx plan. 01/07: continue tx plan 01/08 ANC remains stable; ECT tomorrow; Dispo planning and pt will continue ECT as outpt Review of guidlines in [id number]: -Mild neutropenia (absolute neutrophil count [ANC]: 1000 to 1499/microL) ? Continue treatment but increase monitoring frequency to three times per week. -Moderate neutropenia (ANC: 500 to 999/microL) ? Interrupt?clozapine increase monitoring to daily until ANC is 1000/microL at which point clozapine can be reinstituted. -Severe neutropenia/agranulocytosis (ANC: <500/microL) ? Discontinue?clozapine; .Rechallenge should only occur if the benefits outweigh the risks, in consultation with hematology. 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 for several weeks and then taper off. Patient is tolerating clozapine and without any psychotic symptoms. Patient has autistic spectrum disorder which is a complicating factor as patient needs help in the community for functioning. Although catatonic symptoms have resolved, patient symptoms were very severe and his progress remains tentative state and he is still at risk for catatonic symptoms to return. Thus patient needs to be carefully monitored by a provider over the next several weeks and needs to have access ECT which will be ongoing. Patient also has schizophrenia. He was started on Clozaril which continues to be titrated; because his psychotic symptoms are mitigated by ECT, he will need continued close observation for psychotic symptoms as well. Patient's situation is currently fragile. He has autism, schizophrenia and is homeless. Applications are in for both [facility] and [facility] however services are not set up yet; social work is working diligently to get him temporarily housed at a family member's nearby where he will have access to ECT. Without housing (and aftercare established), were patient to be discharged today he would be unable to function by himself in the community; he would be vulnerable to predation (as he was in the retirement) and would quickly decompensate. Plan: q5's SECTION 8/8a; court-ordered ECT and medications Continue Clozapine 50mg qhs (reviewed risks/side effects which patient understands and agrees to; Clozaril chosen since not only is at the least likely to cause catatonia but is sometimes treatment for catatonia) Continue Ativan 1 mg t.i.d. p.o. for both benzo withdrawal and to avoid any return of catatonic symptoms ECT MWF (Court ordered; pt on Section 8/8a) ECT #1 on 12/12 ECT #2 on 12/14 ECT #3 on 12/17 ECT #4 on 12/19 ECT #5 on 12/21 ECT #6 on 01/24 ECT #7 on 12/31 ECT #8 on 01/09 Patient educated on: diagnosis, medication risk/benefits and ECT Informed Consent: understands Reason for continued inpatient stay Substantial Risk for: stable for discharge Time Spent With Patient Time: Total time managing care of this patient today ____ minutes.
[2025-01-08 20:06] VITALS: BP 132/79; PULSE 116; TEMP 36.8; O2SAT 97
[2025-01-08] MEDS: cloZAPine 25 MG TABLET 50 MG PO (22:22)
[2025-01-09 07:15] VITALS: BP 132/86; PULSE 104; RESP 16; TEMP 36.5; O2SAT 100
--- NOTE | 2025-01-09 08:11 | P.CONAN_ITS ---
[facility] Active Problems Active Problems: All Active Problems Fever, unknown origin (Acute) Catatonia (Acute) Schizophrenia (Acute) Autism spectrum disorder (Acute) Psychiatric illness (Acute) Past Medical History Medical History Fever, unknown origin Autism spectrum disorder Functional capacity: independent ambulation Family History Family history of problems with anesthesia: No Surgical History History of Problems with Anesthesia: No Social History Social History Household Members: None Household Members Other:: pt is admit fr M# for catatonia, not response to questions, JULIO CESAR Housing: Homeless Do you presently have visiting nurse or other home services: No Comment: 1:1 sitter at bedside Patient Tobacco Use Status: Never used Tobacco e-Cigarette/Vaping Use: Never Used Second Hand Smoke Exposure: No Use of substances other than those prescribed or required for medical reasons: No Currently Displaying Signs/Symptoms of Drug Intoxication Withdrawal: No Any prior treatment program specific to substance use: No Spiritual Healthcare Practices: unable to participate [facility] Healthcare Practices: unable to participate Cultural Healthcare Practices: unable to participate Advance Directives: No Advance Directives Information Provided: Yes Do you have thoughts of harming others: None Do you have a plan to hurt others: No Plan Recently lost weight without trying: Unsure Poor oral hygiene: No service: No Sexual orientation: Did not discuss Meds Allergies Allergy/AdvReac Type Severity Reaction Status Date / Time No Known Allergies Allergy Verified 11/28/24 13:56 Active Medications: Current Medications Al Hydroxide/Mg Hydroxide (Magnesium Hydrox/Alum Hydrox 30 Ml Oral.Susp) 30 ml PO Q6H PRN PRN Reason: Heartburn/Nausea Clozapine (Clozapine 25 Mg Tablet) 50 mg PO BEDTIME ARNIE Last Admin: 01/08/25 22:22 Dose: 50 mg Lactated Ringer's (Lr) 1,000 mls @ 50 mls/hr IVCONT .Q20H ARNIE Lorazepam (Lorazepam 1 Mg Tablet) 1 mg PO TID ARNIE Last Admin: 01/08/25 22:26 Dose: Not Given Magnesium Hydroxide (Milk Of Magnesia 30 Ml Oral.Susp) 30 ml PO DAILY PRN PRN Reason: Constipation Multivitamins/Vitamin C (Multivitamin Tablet) 1 tab PO DAILY ARNIE Last Admin: 01/08/25 09:08 Dose: 1 tab Home Medications ?Medication ?Instructions ?Recorded ?Confirmed ?Last Taken ?Type lamotrigine 25 mg tablet 25 mg PO BID 12/14/24 12/14/24 Unknown History multivitamin with folic acid 400 1 tab PO DAILY 12/14/24 12/14/24 Unknown History mcg tablet (Daily-Luh (with folic acid)) risperidone 1 mg tablet 1 mg PO BID 12/14/24 12/14/24 Unknown History Exam Height,Weight and Vital Signs: Height 6 ft Weight 109.1 kg Last Vital Signs Temp 97.7 F 01/09/25 07:15 Pulse 104 H 01/09/25 07:15 Resp 16 01/09/25 07:15 BP 132/86 01/09/25 07:15 Pulse Ox 100 01/09/25 07:15 O2 Del Method Room Air 01/09/25 07:15 O2 Flow Rate 2 12/31/24 08:13 Pertinent Lab Results Pertinent Lab Results: Laboratory Tests 12/15/24 12/26/24 01/02/25 07:54 13:30 07:24 WBC 8.1 4.5 L RBC 4.02 L 4.26 L Hgb 12.1 L 12.6 L Hct 36.3 L 38.9 L MCV 90.3 91.3 MCH 30.1 29.6 MCHC 33.3 32.4 RDW 12.3 13.3 Plt Count 311 D 399 D MPV 9.9 9.5 Immature Gran % (Auto) 2.2 H 0.9 H Neut % (Auto) 51.5 33.5 L Lymph % (Auto) 37.2 55.1 H [place] % (Auto) 6.3 6.2 Eos % (Auto) 2.1 2.7 Baso % (Auto) 0.7 1.6 Lymph # (Auto) 3.0 2.5 [place] # (Auto) 0.5 0.3 Eos # (Auto) 0.2 0.1 Baso # (Auto) 0.1 0.1 Abs Immat Gran (auto) 0.18 H 0.04 H Absolute Neuts (auto) 4.1 1.5 L 1.1 L Absolute Nucleated RBC 0.000 0.000 Nucleated RBC % (auto) 0.0 0.0 Sodium 142 Potassium 4.3 Chloride 106 Carbon Dioxide 28 Anion Gap 12 BUN 11 Creatinine 0.84 Estim Creat Clear Calc 162.9 Estimated GFR > 60 Random Glucose 85 Estimat Average Glucose 82 Hemoglobin A1c % 4.5 Calcium 10.0 Total Bilirubin 0.5 AST 40 H ALT 82 H Alkaline Phosphatase 47 Total Protein 7.1 Albumin 3.8 Triglycerides 30 Cholesterol 114 LDL Cholesterol, Calc 88 HDL Cholesterol 20 L 01/04/25 01/07/25 07:48 08:35 WBC RBC Hgb Hct MCV MCH MCHC RDW Plt Count MPV Immature Gran % (Auto) Neut % (Auto) Lymph % (Auto) [place] % (Auto) Eos % (Auto) Baso % (Auto) Lymph # (Auto) [place] # (Auto) Eos # (Auto) Baso # (Auto) Abs Immat Gran (auto) Absolute Neuts (auto) 1.2 L 3.1 Absolute Nucleated RBC Nucleated RBC % (auto) Sodium Potassium Chloride Carbon Dioxide Anion Gap BUN Creatinine Estim Creat Clear Calc Estimated GFR Random Glucose Estimat Average Glucose Hemoglobin A1c % Calcium Total Bilirubin AST ALT Alkaline Phosphatase Total Protein Albumin Triglycerides Cholesterol LDL Cholesterol, Calc HDL Cholesterol Airway Mallampati Class: II TM Dist: >3cm Neck ROM: Full Heart: rrr Lungs: cta Assessment and Plan Assessment Anesthesia Assessment: Anesthesia Plan Discussed and Chart Reviewed Final Anesthetic Review Family History of Problems with Anesthesia: No History of Problems with Anesthesia: No NPO: Yes ASA Class: III Final Preanesthetic Review: No Changes in Pt Med Stat, Meds/Allgs Chart Reviewed and Consent Obtained/Reviewed Patient Risk: Intermediate Procedure Risk: Intermediate Anesthetic Plan Anesthetic Plan: GA Disposition: Standard PACU
--- NOTE | 2025-01-09 08:41 | MHC.SHP ---
Pre-Procedural Eval Section A - 24 Hr Update-Section A only Date of Service: 01/09/25 The patient is an INPATIENT: Yes Changes since office visit: Yes Patient answered all questions; No Cold of Flu in the past 2 weeks, No New Medical Problems and No Changes in Medication The patient has been examined within 24 hours of the surgical procedure. The History & Physical has been completed within 30 days and I have reviewed it.: Yes Section B - Complete if H&P > 30 days Chief Complaint: catatonia/psychosis/autism Allergies: Allergies Allergy/AdvReac Type Severity Reaction Status Date / Time No Known Allergies Allergy Verified 11/28/24 13:56 Plan I have reviewed the history and physical and performed a pertinent physical examination on my patient. No changes have occurred unless specified. Time Spent With Patient Time: Total time managing care of this patient today ____ minutes.
[2025-01-09 09:36] VITALS: BP 133/73; PULSE 108; TEMP 36.6; O2SAT 98
[2025-01-09] MEDS: LORazepam 1 MG TABLET PO ×3 (09:46→20:21)
[2025-01-09] MEDS: Multivitamin TABLET 1 TAB PO (09:46)
--- NOTE | 2025-01-09 17:15 | P.PNPSI_ITS ---
Subjective Subjective Date of Service: 01/09/25 Reason For Visit: catatonia/psychosis/autism Interim History: Met with patient; discussed with team Diagnostics Vital Signs (24Hr): Vital Signs - 24 hr 01/08/25 20:06 01/09/25 07:15 01/09/25 09:36 Temperature 98.2 F 97.7 F 97.8 F Pulse Rate 116 H 104 H 108 H Respiratory Rate 16 Blood Pressure 132/79 132/86 133/73 Pulse Oximetry 97 100 98 Oxygen Delivery Method Room Air Room Air Room Air BMI result Body Mass Index 32.6 Labs 12/26/24 13:30 12/15/24 07:54 Medications Medications Current Medications Al Hydroxide/Mg Hydroxide (Magnesium Hydrox/Alum Hydrox 30 Ml Oral.Susp) 30 ml PO Q6H PRN PRN Reason: Heartburn/Nausea Clozapine (Clozapine 25 Mg Tablet) 50 mg PO BEDTIME [facility] Last Admin: 01/08/25 22:22 Dose: 50 mg Lorazepam (Lorazepam 1 Mg Tablet) 1 mg PO TID [facility] Last Admin: 01/09/25 15:09 Dose: 1 mg Magnesium Hydroxide (Milk Of Magnesia 30 Ml Oral.Susp) 30 ml PO DAILY PRN PRN Reason: Constipation Multivitamins/Vitamin C (Multivitamin Tablet) 1 tab PO DAILY [facility] Last Admin: 01/09/25 09:46 Dose: 1 tab Naloxone HCl (Naloxone Hcl 0.4 Mg/Ml Vial) 0.04 mg IVPUSH Q5M PRN PRN Reason: Excessive sedation or RR < 8 Allergies Allergies Allergy/AdvReac Type Severity Reaction Status Date / Time No Known Allergies Allergy Verified 11/28/24 13:56 Assessment & Plan Assessment & Plan (1) 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 Pt transferred to medical floor from ICU for continued IV benzodiazepines, IV fluids, TPN. Patient court-ordered treatment including ECT. Once patient received ECT he started coming out of catatonic symptoms Initial Impression: It is difficult to know the etiology of catatonia. People with autism, psychotic disorders, or taking a antipsychotic medications are all at increased risk for catatonia and patient has all 3 risk factors (so it seems). Again from collateral it sounds very possible that catatonic symptoms started in the community in the week prior to this admission. Here at [facility] with IV benzodiazepines,, patient had observed but minimal improvement with IV diazepam; now on IV Ativan with some additional improvement. Discussed case thoroughly with Dr. Lira who agrees that current treatment plan of IV Ativan as both appropriate and necessary treatment to resolve catatonia and prevent malignant catatonia. Apprentice/Lineman has discussed the possibility of patient needing ECT treatment if IV benzos do not adequately resolve symptoms; family remains cautious about ECT but seems to understand that this could be necessary. After receiving collateral from patient's mother (see below), it seems that patient was demonstrating significant changes in his behavior, very different from his normal way of functioning and his normal expressions of autism. That said , some other family members perspective is with discrepancy from mother's collateral so it is not totally clear. But per the mother, The behavioral changes described sound like prodrome of schizophrenia. Patient's father also observed patient responding to internal stimuli, also very different from his normal expressions. Apprentice/Lineman met with and discussed case with patient's father and then talked with patient's mother who currently lives in [place]. Collateral from patient's mother, Cliff, ([phone]) ASD; IEP, honors classes, working; spelling [employer]; graduated [employer]; -around 22 years old, seemed more reclusive and pt started changing -lost job September 2022; missing days, not focused; got fired at next job for going too slow -a year ago, less ADL's, not showering, less motivation, mom thinking more than just ASD since not like this at all in [place] -Refusing to go to appointments. Got him to ED and psych doctor evaluated but was not able to be Sectioned; mom tried other times to get him to doctor, to hospital, but police felt did not meet criteria to section him... -still minimal ADL's; in Fall 2023 started sleeping outside in the park which again, out of character -Jul 2024 making slow movements, like in slow motion, but able to pull out of it; kept sleeping outside in front of her door, peeing on himself or in bottles. -Episodes of staring off and not responding; intermittently would look agitated -Mom sent him to [facility] to be with father -no hx of drug/alcohol use -had gone 36 hours w/out sleep, but not hyperactive, withdrawn and either quiet on laptop or making lots of food but not eating -no seizure hx -no hx of medication Hospital course: Initially patient admitted to for psychosis; quickly developed severe catatonia, rigidity, not eating or drinking or moving or talking at all. Moved to medical floor and then ICU for IV benzos: 1.Initially Patient was 1st sent from to the medical floor. Due to national shortage of liquid Ativan, He received midazolam 2 mg IV however patient had no response. He was then given diazepam 10 mg IV and within 30 seconds, he relaxed his muscles, folded his arms, turned over on his side and moved his legs, 1st natural movements observed for several days. Apprentice/Lineman collaborated with Dr. Lira and after literature review, both agreed that patient required immediate IV diazepam treatment to prevent patient from progressing towards a malignant catatonia; since patient had demonstrated initial response to diazepam he should be continued on diazepam; the literature recommends diazepam IV infusion at 10mg/500ml saline at 1.25mg/hour; diazepam infusion not available per hospital formulary so agreed to diazepam 2.5 mg IV push q.2 hours. 2)Hospitalist team/medical floor nursing staff felt patient should be observed on ICU for this administration and he was transferred to the ICU. In the ICU, Patient treated with IV Diazepam for about 36 hours with limited effect, with rigidity having resolved (and periodically briefly opening his eyes) but other symptoms of catatonia remaining including, not following verbal commands and negativism (resistance of examine his manipulation with equal strength). Team agreed to switch from diazepam to Ativan 2 mg IV q.i.d.. After about 12 hours patient improved some more, responding to noxious stimuli/sternal rub and grimaced and actively pushed examiner's hand away. After about 36 hours give or take, dose increase to Ativan 2 mg IV q4H. Patient able to be transferred back to the medical floor. 3) patient on medical floor receiving Ativan 2 mg IV q4h. He remains in the bed with his eyes closed, not responding to verbal commands but is overall moving all limbs more naturally on his own. Negative his remains. ICU 12/06 Patient remains with same minimal improvement observed when starting diazepam; he is moving on his own a little more naturally though still minimally. Will appeared to be trying to open his eyes sometimes when his name is called. Continues with negativism however otherwise is not rigid. Apprentice/Lineman met with patient's father and stepmother Debra. Initially family expressed dissatisfaction with treatment and wanted patient transferred to [facility]. Dr. Jiang reached out to [facility] to discuss case and they declined to take patient at this time, not having a bed available and also not being able to provide ECT should patient require it. Patient's family accepted this. Apprentice/Lineman again spent about an hour providing education on catatonia, its causes and its treatments, including ECT; explained ECT procedure as well. Dr. Lira also provided the family with printed out literature regarding these topics, including ECT. After discussion, patient's family seemed to agree with current treatment plan of continuing with benzodiazepines. Since patient had only a minimal response to IV diazepam, decision was made to switch to IV Ativan to see if this would be more effective; also discussed with family who agreed with this plan. Apprentice/Lineman again offered to talk with family member who is a neurologist and gave them sba underwriter's contact information to pass along. 12/07 some change in presentation as patient now responsive to noxious stimuli/chest rub, grimacing and pushing examiner's hand away. Apprentice/Lineman and Dr. Lira agree this is improvement and evidence that Ativan is helping (progression: rigidity and no response to noxious stimuli -- progressed to absence of rigidity but still no response to noxious stimuli--progressed to now, pt with active response to noxious stimuli). -Literature reviewed and after team discussion agreed to increase IV Ativan to 2 mg q.4h -brain MRI unremarkable -Discussed with Dr. Jiang who felt patient could be safely transferred back to medical floor out of ICU; family informed Medical floor: 12/08 patient remains catatonic, not opening his eyes, not responding to any verbal interactions; remains with negativism; however is moving increasingly or naturally on his own. Discussed with dr. Ernandez. -continue with Ativan 2 mg q4h for now 12/09 Last night/early AM pt spiked fever 105, tachy, tachypneic. Treated with abx, cooling blanket, rectal acetaminophen; CXR negative. Temp came down and pt only mildly tachy; RR 18. Also...This morning, pt woke up, talked with Dr. Ernandez and asked for a sandwich; a little later with nurse, he knew his name, and that he was at [facility]. Later in day, on approach, pt sleeping, sometimes yawning; did not wake up to speaking his name; sba underwriter did not do sternal rub -tried to test for rigidity but not able to assess since pt's remains w/ negativism (catatonic symptom of resisting examiner w/ equal force) but pt appears to be moving around easily enough on his own. -did not really at risk for NMS since pt only on Diazepam T:99.4 (on cooling blanket) BP:112/68 O2 96% HR 98 RR: 18 lips appear swollen UA unremarkable CXR unremarkable negative covid/rsv/flu Apprentice/Lineman discussed case with Dr. Lira; sba underwriter Discussed case with Dr. Ernandez regarding blood cultures/LP; at this time Dr. Ernandez would like to continue monitoring but advance to LP if patient does not improve. Hospital ran out of Ativan; will switch back to diazepam Impression: Despite the fact that patient spiked a fever and was tachy and tachypneic, the fact that he woke up, was talking, interacting oriented to self and place was very encouraging. Ativan seems to have been more effective than diazepam and remains preferred, however diazepam has had some positive effect. Patient being worked up for infectious etiology, though he does not appear ill looking. It is possible that fever, increased heart rate respiratory rate was a brief crossing into a malignant catatonia; will continue with current treatment plan; ECT remains consider most effective treatment however need court order 12/11 LP so far mostly negative with a few parameters still pending; Afebrile and vitals WNL Patient remains with eyes closed but is moving his body and head around on his own; sometimes role in his head around and around. Still does not respond to verbal stimuli. Waxy flexibility noted; initially only minimal negativeism however this increased with examiners manipulations. Has not open his eyes or talked since Friday 12/08 (per father patient also talked with his mother on the phone, talked with his grandmother). -discussed with pharmacist and some additional Ativan has been procured though in a very limited supply; will restart Ativan IV -of note diazepam infusion is not possible per pharmacy -would also consider memantine, though must be taken p.o. Impression: Patient has certainly improved with IV benzodiazepines, lorazepam seeming to be the most effective. However he remains with severe catatonia. Although he open his eyes and spoke briefly, he has not done so for 3 days and for the past 3 days he has remained with eyes closed, nonverbal, not responding to verbal cues, not eating, not drinking. Thus far, workup for infection has been unremarkable, with only a few LP labs still pending. Because no infectious process can be identified patient is episode of fever, tachycardia and tachypnea remain concerning for possible brief transitioned into malignant catatonia. Currently patient is afebrile and vitals WNL however the risks increase the longer catatonia persists and ECT remains the most viable treatment option -court scheduled for today 12/12 ECT today. Discussed case in detail with Dr. Lira who agreed with proceeding to ECT for following reasons: 1. He remains with Severe catatonia; he is not eating, drinking, talking or opening his eyes, responding to verbal stimuli or getting out of bed; he cannot communicate or receive information; he continues to need IV fluids, nutrition without which he would go into organ failure and . 2. This past weekend, he became febrile with a temperature spiking to 105 degrees; he was tachycardic to 133, tachypneic to 22 RR? temperature lowered but he remained febrile for the next day...... After thorough workup which included an LP, chest x-ray, UA, RSV/COVID/flu? no infectious process identified, other than possible sinusitis. Was this episode of autonomic dysregulation a brief crossover into malignant catatonia? Concern for patients condition to turn malignant increases the longer catatonia persists. 3. The longer a person remains catatonic the harder it becomes to resolve it. Prolonged catatonia correlates with higher risk of serious medical complications, including ?and include the risks associated with continuous IV, S[place], and being bed bound. A person can rapidly deteriorate despite being on benzodiaepines. 4. Literature recommends a Switch to ECT when: Lorazepam (Ativan) fails after 3?5 days of adequate dosing (e.g., 6?12 mg/day) to prevent poor outcome (Electroconvulsive therapy in catatonic patients: Efficacy and predictors of response (2015)) -Will continue with ECT [facility] Will treat with Diazepam 5mg IV TID to treat for Benzo withdrawal and to treat catatonia; as pt improves, will taper benzo 12/13 Patient open his eyes, started answering questions by nodding his head and remained so throughout the day. Apprentice/Lineman explained patient's condition and treatment though doubtful patient understood much of it. Apprentice/Lineman gave him 2 doses of IV Ativan 2 mg which seemed to help because Later on sba underwriter was informed the patient was again talking, eating and drinking. ECT tomorrow but if patient remains much improved, maybe able to return to the psychiatric unit -discussed case with Dr. Serrano and Dr. Lira and will continue benzos both to help make sure catatonia does not return and to avoid benzo withdrawal RETURNED TO PSYCH UNIT M5 (12/14): Patient significantly improved, walking, talking, eating, drinking and moving about. Patient was able to return to the psych floor. Plan is to continue ECT doing better on ativan 1mg tid, on 1:1 eating- some odd behaviors but no longer fully catatonic! 12/16 - dc 1:1, pt requested ensure with meals- maybe be rebound hunger from not eating while catatonic. 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 Patient eating, drinking, talking, walking and interacting appropriately (keeping in mind ASD) Patient does not remember any of the events preceding this admission or during until getting to the psychiatric floor; catatonia and treatment explained to patient and he is amenable to continuing with ECT and benzodiazepines. Patient says he feels back to his regular self in his father was present, says he thinks so too. Patient denies any psychotic symptoms at all Although patient is much improved, he remained significantly vulnerable to return of catatonic symptoms. Discussed with Dr. Lira who agrees to Continue with ECT on 12/19 and 12/21 so as to prevent any return of catatonic symptoms; will continue with Ativan but likely further taper at some point. Will continue to assess. Regarding guardianship, at this time sba underwriter does not see a need for patient to have a guardian. Currently however patient has no outpatient providers and no where to live; where patient to be discharged now he would likely become quickly impaired 12/19 Patient says he is doing well. He remains feeling like his normal self. Patient continues to deny any AH or paranoid ideations and says he does not remember having any of these before. He says he finds the atmosphere on the unit to be pretty good and has no complaints. Patient asked about ECT, how much more he is going to get and agrees to treatment plan. Discussed post discharge and patient said he liked living in [place] and is considering going back to his mother's there but wonders if staying here might be easier. He said he also is considering going to his aunt's house in [place]. 12/20 Patient remains organized in speech and behavior. Talked about ECT, talked about his goals. Patient said he would like to find working computers, something he has been interested in for years. He has some ambivalence about returning to [place] since he says he and his mom have very different view on things; she very much wanted him to join the [employer] though he did not think it was necessarily a good fit for him. Discussed autism and patient knows that he has had this diagnosis and has worked through it for years. He continues to deny any psychotic symptoms at all. -patient's mother told social welfare administrator that after having talked with them on the phone for the past several days she says he sounds like his regular self. 12/21 no change in presentation; no problems with ECT denies any psychiatric symptoms; denies psychotic symptoms, Pt shared ambivalence about returning to live w/ mom in [place]; he agrees that option of staying in skilled nursing here is precarious. Family meeting tuesday -ECT on tuesday and then will re-assess -continue ativan 1 mg TID (to prevent return of symptoms) 12/23 Continue tx 12/24 pt denies any psychotic symptoms. He had ECT today and says he's having trouble with recent memories but can not specify further. Family meeting today. -at this point will hold ECT for Tue; will consider either Tuesday or next week. Pt remains highly vulnerable to re-emergence of catatonic symptoms, however, now complaining of memory issues. 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 Patient shared about psychotic symptoms: In [place] (in the weeks before coming to [facility]): pt acknowledged that he was having hallucinations prior to admission. For several weeks, He says in [place] i was experiencing hallucinations...i heard voices telling me to bring material...[with his mind] and i felt like i had to bring them this material or i would be in big trouble... (not sure who they were). He felt like he had no choice in the matter.. Pt was sometimes sleeping on a park bench and thinks the voices were related to this [facility] (on way to [facility]): When he got to [facility], he had hallucinations it was pretty intense there...the voices were definetly stronger saying this is not reality...the reality you think you know is not real..it's all fake... and voices were putting more pressure on me to do what they wanted...they wanted me to do various stretches...and according to them i was failing and they threatened to disban me.... At this point there was more than one voice talking together about him. He found it very distracting and says this was why he was walking around in circles. Shared that AH told him everyone was a dog which he thought was true... (no VH). That's what i was being told...i was made up of multiple dogs... The voices told him to spin in a atka to leave the realm... which is what police found him doing while in [facility]. At skilled nursing in [facility]: delusions/AH persisted; he had belief that he was a child being disciplined by others...AH telling him to beat himself up for discipline; he hit himself a few times but then realized not to... Looking back now, he knows it was his mind not playing tricks on him. Pt says since being here at the hospital he has not had any psychotic symptoms. He says this was hard to talk about but is comfortable talking about it now. -reviewed diagnosis and treatment; discussed antipsychotic medications including Clozaril and discussed risks/side effects including but not limited to agranulocytosis patient understands and agrees to start Clozaril 12/26 Patient reports that he is good and just thinking about catatonia; patient was amazed at how long it lasted. Discussed again about recent diagnosis of schizophrenia and treatment and patient remains amenable to starting Clozaril. 12/27 change to ECT weekly; pt agrees to increase clozapine 12/28; continue treatment plan; agrees to titrate clozapine; ECT Tuesday; continue Ativan 1 mg t.i.d. 12/29 continue with treatment plan 12/30 continue with treatment plan; ECT tomorrow Tuesday. Moving ECT to once a week and dispo planning continues 12/31 ECT to once a week; continue Ativan for several weeks; dispo planning -will continue to titrate Clozaril with dose of 100 mg; currently patient is without psychotic symptoms however he is also getting ECT. It is difficult to know what dose of clozapine he will need once ECT tapers and is discontinued. Patient will need to be monitored closely. 01/01 patient asks for Clozaril to stay at 50 mg since no symptoms; understands that ECT maybe keeps in symptoms at [place] however would like to hold off increasing for now 01/02 patients ANC was 1.5 on 12/26 and today 01/02 it is 1.1 [address] patient in mild neutropenia; recommendations are to continue treatment but increase monitoring to 3 times a week. 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 guarded. pt reports feeling good today; pt stated, I feel like the medications are working well . He reports sleeping well last night. denies SI/HI/VH/AH. Continue current tx plan. 01/04 ANC remains stable 01/05: Active on unit, keeping to self. guarded. pt reports doing well today; denies any depression or anxiety. denies SI/HI/VH/AH. he reports sleeping well last night. difficult to engage. observed pacing unit hallway at times. continue current tx plan 01/06: continue current tx plan. 01/07: continue tx plan 01/08 ANC remains stable; ECT tomorrow; Dispo planning and pt will continue ECT as outpt Review of guidlines in [id number]: -Mild neutropenia (absolute neutrophil count [ANC]: 1000 to 1499/microL) ? Continue treatment but increase monitoring frequency to three times per week. -Moderate neutropenia (ANC: 500 to 999/microL) ? Interrupt?clozapine increase monitoring to daily until ANC is 1000/microL at which point clozapine can be reinstituted. -Severe neutropenia/agranulocytosis (ANC: <500/microL) ? Discontinue?clozapine; .Rechallenge should only occur if the benefits outweigh the risks, in consultation with hematology. 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 for several weeks and then taper off. Patient is tolerating clozapine and without any psychotic symptoms. Patient has autistic spectrum disorder which is a complicating factor as patient needs help in the community for functioning. Although catatonic symptoms have resolved, patient symptoms were very severe and his progress remains tentative state and he is still at risk for catatonic symptoms to return. Thus patient needs to be carefully monitored by a provider over the next several weeks and needs to have access ECT which will be ongoing. Patient also has schizophrenia. He was started on Clozaril which continues to be titrated; because his psychotic symptoms are mitigated by ECT, he will need continued close observation for psychotic symptoms as well. Patient's situation is currently fragile. He has autism, schizophrenia and is homeless. Applications are in for both [facility] [place] and [facility] however services are not set up yet; social work is working diligently to get him temporarily housed at a family member's nearby where he will have access to ECT. Without housing (and aftercare established), were patient to be discharged today he would be unable to function by himself in the community; he would be vulnerable to predation (as he was in the skilled nursing) and would quickly decompensate. Plan: q5's SECTION 8/8a; court-ordered ECT and medications Continue Clozapine 50mg qhs (reviewed risks/side effects which patient understands and agrees to; Clozaril chosen since not only is at the least likely to cause catatonia but is sometimes treatment for catatonia) Continue Ativan 1 mg t.i.d. p.o. for both benzo withdrawal and to avoid any return of catatonic symptoms ECT MWF (Court ordered; pt on Section 8/8a) ECT #1 on 12/12 ECT #2 on 12/14 ECT #3 on 12/17 ECT #4 on 12/19 ECT #5 on 12/21 ECT #6 on 01/24 ECT #7 on 12/31 ECT #8 on 01/09 Time Spent With Patient Time: Total time managing care of this patient today ____ minutes.
[2025-01-09 19:19] VITALS: BP 135/79; PULSE 106; TEMP 36.9; O2SAT 96
[2025-01-09] MEDS: cloZAPine 25 MG TABLET 50 MG PO (20:21)
[2025-01-10 07:54] VITALS: BP 109/56; PULSE 101; RESP 16; TEMP 36.3; O2SAT 96
[2025-01-10] MEDS: Multivitamin TABLET 1 TAB PO (08:57)
[2025-01-10] MEDS: LORazepam 1 MG TABLET PO (08:57)
--- NOTE | 2025-01-10 08:59 | P.DS_ITS ---
DS: Providers Provider Date of Service: 01/10/25 Date of admission: 12/14/24 14:27 Date of discharge: 01/10/25 Primary care physician: Unknown Physician DS: Diagnosis Discharge Diagnosis (1) Catatonia: Status: Acute (2) Schizophrenia: Status: Acute (3) Autism spectrum disorder: Status: Acute DS: Medications Discharge Medications Home Medications: Previous Rx's ?Medication ?Instructions ?Recorded clozapine 50 mg tablet 50 mg PO BEDTIME 30 days #30 tabs 01/10/25 lorazepam 1 mg tablet 1 mg PO BID 30 days #60 tabs 01/10/25 Data Data Completed and Pending Completed studies during hospitalization [Text1]: 01/04/25 01/07/25 07:48 08:35 Absolute Neuts (auto) 1.2 L 3.1 DS: Summary Time Spent with Patient Time attestation: Total time managing care of this patient today ____ minutes. Discharge Plan Discharge Anticipated Discharge Date/Time: 01/10/25 11:30 Patient Disposition: Home, Self-Care Discharge Diagnosis: Schizophrenia Referrals: [facility] [Other] - 02/08/25 9:00 am (Telehealth- Be by your phone at the appointment time, you will receive a call or text with a link to join via video ) Intake Assessment: Nori FRANK) [Other] - 01/15/25 10:00 am (Appointment in person at the office on [facility]; you must attend this appointment in order to keep psychiatry appointment with Dr. Marie At this appointment you can also request referral for case management ) PCP: [facility] [Other] - 01/18/25 1:30 pm (Appointment in person at their office on [facility]) Department of Mental Health (DMH): Chetan [Other] - 1 Week (Chetan will be reaching out to schedule needs and means assessment once application is processed. You may call her at the above number to check-in) Department of Developmental Services (DDS): Shahana [Other] - 1 Week (Shahana will be reaching out regarding next steps in application process. You may check in with her at the above number ) ECT: [facility] [Other] - 01/16/25 6:00 am (Enter through the Main Entrance and check in at the senior front end developer, they will direct you to the PACU. PACU will call you the night before with instructions. Remember you can not eat or drink after midnight the evening before ECT ) ECT: [facility] [Other] - 01/23/25 6:00 am (Enter through the Main Entrance and check in at the senior front end developer, they will direct you to the PACU. PACU will call you the night before with instructions. Remember you can not eat or drink after midnight the evening before ECT ) ECT: [facility] [Other] - 01/30/25 6:00 am (Enter through the Main Entrance and check in at the senior front end developer, they will direct you to the PACU. PACU will call you the night before with instructions. Remember you can not eat or drink after midnight the evening before ECT ) Discharge Medications: New lorazepam 1 mg Tablet 1 mg PO BID 30 Days Qty: 60 0RF clozapine 50 mg tablet 50 mg PO BEDTIME 30 Days Qty: 30 1RF Discontinued lamotrigine 25 mg tablet 25 mg PO BID risperidone 1 mg tablet 1 mg PO BID multivitamin with folic acid [Daily-Luh (with folic acid)] 400 mcg tablet 1 tab PO DAILY erythromycin 5 mg/gram (0.5 %) Ointment 1 cm ophthalmic (eye) QID Qty: 1 0RF amoxicillin-pot clavulanate 875-125 mg Tablet 1 tab PO Q12H Qty: 10 0RF Discharge Orders: Discharge Order (Routine); Ordered 01/10/25 Ordered By: Phan Saucedo Diet: Regular diet Activity on Discharge: As tolerated Stand Alone Forms: Patient Portal Discharge page Print Language: Micronesian Care Plan Goals: Maintain mood and safe behaviors Take medications as prescribed Practice coping skills Continue with outpatient providers and reach out to them as needed Health Concerns: Mood stability and behaviors Plan of Treatment: Follow up with your PCP, psychiatric provider and other outpatient providers regarding above concerns Take medications as prescribed Assessment: Risk assessment at time of discharge:? Patient was interviewed prior to discharge and found to be fully oriented and without any SI or HI. Patient has improved insight and judgment and wants to continue treatment. Patient is not in imminent risk of harm to self or others and has a safety plan that includes presenting to the closest ER or calling 911 if feeling unsafe.? Patient has been observed closely by nursing and unit staff throughout admission; patient has not engaged in any behaviors that suggest dangerousness to self or others and has demonstrated appropriate behaviors and impulse control
[2025-01-10 11:25] LABS: Neut%MD 40.3 %; Neutrophils Absolute Auto 1.7 x10*3/uL (2.0-8.3); WBCANC 4.2 X10*3/uL
== END 2025-01-10 12:27 | disposition home or self-care (01) | DRG 750 ==
PROVIDERS: Psychiatry & Neurology Psychiatry; Admitting Provider Psychiatry & Neurology Psychiatry; Visit Provider Psychiatry & Neurology Psychiatry
PROC: GZB4ZZZ Other Electroconvulsive Therapy (ICD-10-PCS; CPT 90870; principal; 2024-12-17 11:30)
PROC: (CPT 90870; principal; 2025-01-30 07:00)
DX: F20.9 Schizophrenia, unspecified (principal); F06.1 Catatonic disorder due to known physiological condition; F84.0 Autistic disorder; Z79.899 Other long term (current) drug therapy
CPT/HCPCS: 36415; 80053; 80061; 83036; 85025; 85048; 90870; J0330; J1596; J1805; J1920; J2704; J7120

== ENCOUNTER → 2024-12-14 14:27 | Outpatient (BNV) | payer OTHER, SELFPAY | PROVIDERS: Admitting Provider Psychiatry & Neurology Psychiatry; Visit Provider Psychiatry & Neurology Psychiatry | DX: F20.2 Catatonic schizophrenia (principal); F84.0 Autistic disorder | CPT/HCPCS: 90870; 99231; 99232 ==

== ENCOUNTER → 2024-12-14 14:27 | Outpatient (BNV) | payer OTHER, SELFPAY | PROVIDERS: Admitting Provider Psychiatry & Neurology Psychiatry; Visit Provider Psychiatry & Neurology Psychiatry | DX: F33.2 Major depressive disorder, recurrent severe without psychotic features (principal) | CPT/HCPCS: 90870; 99232 ==

== ENCOUNTER 2025-01-16 06:04 | Day surgery (SDC) | payer OTHER, SELFPAY ==
[2025-01-16] VITALS (8 sets, daily range): BP systolic 90–122; BP diastolic 46–80; PULSE 85–113; RESP 16–20; TEMP 36.6–37.3; O2SAT 93–99; BMI 33.2
--- OUTSIDE RECORDS SUMMARY | 2025-01-16 06:04 | XMS_ITS | Patient Health Record ---
Author Organization [facility] Address [address] [place] [phone] Care Team Providers Care Screen Tender Name Role Phone No, PCP Primary Care Provider Unavailabl e [facility], Nursing Unavailable [phone] [facility], [facility] Unavailable [phone] Allergies No Known Allergies Reason For Referral No Information Encounters Encounter Location Date Provider Diagnosis [address] [id number] 11/14/[address] [id number] 11/20/[address] [id number] 01/14/2025 Nursing [facility] Plan Of Treatment Next Appt Details Provider Name:Nursing [facility], 01/18/2025 01:30:00 PM, [address] [place] [address], [phone], Insurance Providers Payer Name Payer Address Payer Phone Subscriber Number Group Number Insured Name Patient Relationship to Insured Coverage Start Date Coverage End Date [place] Medicaid C3 [address] [place], [place] [id number] Mónica Cleaning Self - patient is the insured Medical (General) History Medical History History ICD Code Schizophrenia Autism Hospitalization History Reason Date(Month/Year) [facility] [place] [facility] [place] 12/[place]
[2025-01-16] MEDS: Lactated Ringers 1,000 ML 100 ML IVCONT (06:39)
--- NOTE | 2025-01-16 07:08 | HO.ANESPROP2 ---
HPI - Anesthesia Eval Consult details Narrative: for ECT. PMFSH Active Problems Active Problems: All Active Problems Medication monitoring encounter (Acute) Fever, unknown origin (Acute) Catatonia (Acute) Schizophrenia (Acute) Autism spectrum disorder (Acute) Psychiatric illness (Acute) Past Medical History Medical History Fever, unknown origin Autism spectrum disorder Family History Family history of problems with anesthesia: No Surgical History History of Problems with Anesthesia: No Social History Social History Household Members: None Household Members Other:: pt is admit fr M# for catatonia, not response to questions, JULIO CESAR Housing: Homeless Do you presently have visiting nurse or other home services: No Comment: 1:1 sitter at bedside Patient Tobacco Use Status: Never used Tobacco e-Cigarette/Vaping Use: Never Used Second Hand Smoke Exposure: No Advance Directives: No Advance Directives Information Provided: Yes service: No Sexual orientation: Did not discuss Meds Allergies Allergy/AdvReac Type Severity Reaction Status Date / Time No Known Allergies Allergy Verified 11/28/24 13:56 Active Medications: Current Medications Lactated Ringer's (Lr) 1,000 mls @ 100 mls/hr IVCONT .Q10H ARNIE Last Admin: 01/16/25 06:39 Dose: 100 mls/hr Exam Height,Weight and Vital Signs: Height 6 ft Weight 111.13 kg Last Vital Signs Temp 97.8 F 01/16/25 06:38 Pulse 85 01/16/25 06:38 Resp 20 01/16/25 06:38 BP 116/72 01/16/25 06:38 Pulse Ox 99 01/16/25 06:38 O2 Del Method Room Air 01/16/25 06:38 Airway Mallampati Class: II TM Dist: >3cm Neck ROM: Full Loose/Missing/Broken Teeth: No Heart: ok Lungs: ok Assessment and Plan Assessment Anesthesia Assessment: Anesthesia Plan Discussed and Chart Reviewed Final Anesthetic Review Family History of Problems with Anesthesia: No History of Problems with Anesthesia: No NPO: Yes ASA Class: III Final Preanesthetic Review: No Changes in Pt Med Stat, Meds/Allgs Chart Reviewed, Consent Obtained/Reviewed and Anes Risks/Benef Reviewed Patient Risk: Intermediate Procedure Risk: Intermediate Anesthetic Plan Anesthetic Plan: GA and Agree w/ Assess. and Plan Disposition: Standard PACU
--- NOTE | 2025-01-16 07:28 | MHC.SHP ---
Pre-Procedural Eval Section A - 24 Hr Update-Section A only Date of Service: 01/16/25 The patient is an INPATIENT: No Changes since office visit: No Cold of Flu in the past 2 weeks, No New Medical Problems, No Changes in Medication and No Patient answered all questions The patient has been examined within 24 hours of the surgical procedure. The History & Physical has been completed within 30 days and I have reviewed it.: Yes Section B - Complete if H&P > 30 days Chief Complaint: depression Details of Present Illness: remains stable; no psychotic symptoms; no catatonic symptoms Relevant Family History (Specify if Yes): No Relevant Social History: None Present Medications: None (ativan) Medical History: No relevant PMH Allergies: Allergies Allergy/AdvReac Type Severity Reaction Status Date / Time No Known Allergies Allergy Verified 11/28/24 13:56 Review of Systems Sugical H&P ROS: Negative: Constitution and Psychiatric Exam Surgical H&P Exam: Normal: HEENT, Normal: Heart (RRR) and Normal: Lungs (CTA) Plan Diagnosis/Plan: Unchanged I have reviewed the history and physical and performed a pertinent physical examination on my patient. No changes have occurred unless specified. Time Spent With Patient Time: Total time managing care of this patient today ____ minutes.
--- NOTE | 2025-01-16 07:34 | HO.ECTPROC ---
ECT Procedure Note Diagnosis/Treatment Date of Service: 01/16/25 Diagnosis: Catatonia Previous ECT Date: 12/31/24 Current Treatment Number: 7 Treatment: Series Interval Clinical Notes: remains stable; no catatonic or pyschotic symptoms Time: Total time managing care of this patient today ____ minutes. ECT Settings Device: THYMATRON DGx Electrode Placement: Bifrontal Program/Pulse Width: 0.25 Energy Percent: 30 Seizure Duration By EEG (in seconds): 77 By Motor Observation (in seconds): 22 Medications Administration General Anesthetic: Etomidate (20) and Methohexital (50) Muscle Relaxant: Succinylcholine (120) Ancillary Medications Miscillaneous Medications: Propofol (30) Airway Management Airway Management: Bag Mask Ventilation Treatment Recommendations Electrode Placement: Bifrontal Program/Pulse Width: 0.25 Energy Percent: 30 Notes: pt remains w/out catatonic or psychotic symptoms. Pt had excessive fasiculations, likely due to Brevital; nurse present who is familiar w/ patients response during ECT says this has never happened in past. Pt did not become fully anesthetized and Dr. Deluna ended up giving etomidate 20mg and then Brevital 50mg in addition. Will discuss with Dr. Lira how to proceed. At this point, scheduled pt for ECT in 1 week; however, will consider either holding off for now or making [id number], given that patient remains symptom free and thus far has not had side-effect from ECT.
[2025-01-16 10:06] LABS: Neut%MD 41.9 %; Neutrophils Absolute Auto 1.5 x10*3/uL (2.0-8.3); WBCANC 3.5 X10*3/uL
== END 2025-01-16 10:05 | disposition home or self-care (01) ==
PROVIDERS: Visit Provider Psychiatry & Neurology Psychiatry
PROC: (CPT 90870; principal; 2025-01-16 07:30)
DX: F06.0 Psychotic disorder with hallucinations due to known physiological condition (principal); R50.9 Fever, unspecified; F84.0 Autistic disorder; F33.3 Major depressive disorder, recurrent, severe with psychotic symptoms; Z79.899 Other long term (current) drug therapy
CPT/HCPCS: 36415; 85048; 90870; J0330; J2704

== ENCOUNTER → 2025-01-16 06:04 | Outpatient (BNV) | payer OTHER, SELFPAY | PROVIDERS: Visit Provider Psychiatry & Neurology Psychiatry | DX: F33.2 Major depressive disorder, recurrent severe without psychotic features (principal) | CPT/HCPCS: 90870 ==

== ENCOUNTER → 2025-01-23 05:32 | Day surgery (SDC) | payer OTHER, SELFPAY ==
--- OUTSIDE RECORDS SUMMARY | 2025-01-21 16:39 | XMS_ITS | Patient Health Record ---
Author Organization [facility] Address [address] [place] [phone] Care Team Providers Care Sales Utility Representative Name Role Phone No, PCP Primary Care Provider Unavailabl e [facility], Nursing Unavailable [phone] [facility], [facility] Unavailable [phone] Allergies No Known Allergies Reason For Referral No Information Medications Medication SIG (Take, Route, Frequency, Duration) Notes Start Date End Date Status multivitamin Multiple Vitamins 1 tab(s) orally once a day Active cloZAPine 50 mg 1 tab orally daily @ bedtime Active LORazepam 1 mg 1 tab(s) orally twic e a day Active Social History Tobacco Use: Social History Observation Description Date Details (start date - stop date) Never Smoker NA - NA Sex Assigned At : Social History Observation Description Sex Assigned At Male Tobacco Use Assessment MU Question Answer Notes What is your current smoking status? nonsmoker Problems Problem Type SNOMED Code ICD Code Onset Dates Problem Status W/U Status Risk Notes Problem Sheltered homelessness (762943519839312 ) Sheltered homelessness (Z59.01) Active confirmed Encounters Encounter Location Date Provider Diagnosis [address] [id number] 11/14/[address] [id number] 11/20/[address] [id number] 01/18/2025 Nursing [facility] Sheltered homelessne ss Z59.01 ; Encounter for screening for COVID-19 Z11.52 ; Encounter for screening for depression Z13.31 ; Encounter for screening for cardiovascular disorders Z13.6 ; Encounter for screening for respiratory tuberculosis Z11.1 ; Encounter for screening for infectious and parasitic diseases, unspecified Z11.9 and Encounter for screening for other suspected endocrine disorder Z13.[address] [id number] 01/14/2025 Nursing [facility] Assessments Encounter Date Diagnosis (ICD Code) Assessment Notes Treatment Notes Treatment Clinical Notes Section Notes 01/18/2025 Sheltered homelessness (ICD-10 - Z59.01) Medical, social and psych history reviewed and documented in [facility]. No [facility] records available, unable to update immunization history. Med rec completed with hospital dc paperwork and pt, pt stopped taking some of the meds that were prescribed on discharged, current med list reflects this. Pt does not report any urgent needs, next available appt given to pt, pt encouraged to come to clinic for labs prior to scheduled appt and to contact clinic for with any issues. 01/18/2025 Encounter for screening for depression (ICD-10 - Z13.31) PHQ-9 assessed score was 0, pt has upcoming appt with [facility] on 02/08 to establish care for MH services. 01/18/2025 Encounter for screening for COVID-19 (ICD-10 - Z11.52) Covid verbal screening negative. 01/18/2025 Encounter for screening for cardiovascular disorders (ICD-10 - Z13.6) 01/18/2025 Encounter for screening for respiratory tuberculosis (ICD-10 - Z11.1) 01/18/2025 Encounter for screening for infectious and parasitic diseases, unspecified (ICD-10 - Z11.9) 01/18/2025 Encounter for screening for other suspected endocrine disorder (ICD-10 - Z13.29) 01/18/2025 Other Pt declined dental services Time spent in visit: 25 minutes Plan Of Treatment Pending Test Test Name Order Date CBC 01/18/2025 CHLAMYDIA / GC DNA W RFLX 01/18/2025 HEPATITIS B CORE AB TOTAL 01/18/2025 HEPATITIS B SURFACE ANTIBODY 01/18/2025 HEPATITIS B SURFACE ANTIGEN 01/18/2025 HIV 1 AND 2 ANTIBODY SCREEN 01/18/2025 LIPID PROFILE 01/18/2025 QUANTIFERON TB GOLD 01/18/2025 TSH CASCADE 01/18/2025 COMPREHENSIVE METABOLIC PANEL 01/18/2025 TREPONEMA PALLIDUM ANTIBODY WITH REFLEX TO RPR AND PARTICLE AGGLUTINATION 01/18/2025 HEPATITIS C ANTIBODY 01/18/2025 Next Appt Details Provider Name:Demetrius mark, 02/27/2025 10:00:00 AM, [facility], [place], [place], [phone], Insurance Providers Payer Name Payer Address Payer Phone Subscriber Number Group Number Insured Name Patient Relationship to Insured Coverage Start Date Coverage End Date [place] Medicaid C3 [address] [place], [place] [id number] Mónica Cleaning Self - patient is the insured Medical (General) History Medical History History ICD Code Schizophrenia Autism Surgical History Surgery Date(Month/Year) tonsillectomy at 14 yoa Hospitalization History Reason Date(Month/Year) Psych admissions - Cannot recall locatio [facility] to [facility] Psych admission 12/2024
== END ==
LOC: HO.SSS 05:32
PROVIDERS: Visit Provider Psychiatry & Neurology Psychiatry
DX: F33.2 Major depressive disorder, recurrent severe without psychotic features (principal); Z53.20 Procedure and treatment not carried out because of patient's decision for unspecified reasons

== ENCOUNTER 2025-01-23 08:30 | Outpatient (REF) | payer MEDICAID, SELFPAY ==
--- OUTSIDE RECORDS SUMMARY | 2025-01-23 08:44 | XMS_ITS | Patient Health Record ---
Author Organization [facility] Address [address] [place] [phone] Care Team Providers Care Cloth Brushing And Sueding Supervisor Name Role Phone No, PCP Primary Care Provider Unavailabl e [facility], Nursing Unavailable [phone] [facility], [facility] Unavailable [phone] Allergies No Known Allergies Reason For Referral [...] W/U Status Risk Notes Problem Sheltered homelessness ([id number] ) Sheltered homelessness (Z59.01) Active confirmed Encounters Encounter Location Date Provider Diagnosis [address] [id number] 11/14/[address] [id number] 11/20/[address] [id number] 01/18/2025 Nursing [facility] Sheltered homelessne ss Z59.01 ; Encounter for screening for COVID-19 Z11.52 ; Encounter for screening for depression Z13.31 ; Encounter for screening for cardiovascular disorders Z13.6 ; Encounter for screening for respiratory tuberculosis Z11.1 ; Encounter for screening for infectious and parasitic diseases, unspecified Z11.9 and Encounter for screening for other suspected endocrine disorder Z13.[address] [id number] 01/14/2025 Nursing [facility] Assessments Encounter Date Diagnosis (ICD Code) Assessment [...] Provider Name:Demetrius mark, 02/27/2025 10:00:00 AM, 5 [facility], [place], [place], [phone], Insurance Providers Payer Name Payer Address Payer Phone Subscriber Number Group Number Insured Name Patient Relationship to Insured Coverage Start Date Coverage End Date [place] C3 [address] [place], [place] [id number] Mónica Cleaning Self - patient is the insured Medical (General) History Medical History History ICD Code Schizophrenia Autism Surgical History Surgery Date(Month/Year) tonsillectomy at 14 yoa Hospitalization History Reason Date(Month/Year) Psych admissions - Cannot recall locatio [facility] to [facility] Psych admission 12/2024
[2025-01-23 09:25] LABS: Neut%MD 25.7 %; Neutrophils Absolute Auto 1.2 x10*3/uL (2.0-8.3); WBCANC 4.8 X10*3/uL
== END 2025-01-23 08:31 | disposition home or self-care (01) ==
LOC: HO.LAB 08:30
PROVIDERS: Visit Provider Psychiatry & Neurology Psychiatry
DX: Z51.81 Encounter for therapeutic drug level monitoring (principal)
CPT/HCPCS: 36415; 85048

== ENCOUNTER 2025-01-23 21:25 | Emergency (ER) | payer MEDICAID, SELFPAY ==
[2025-01-23 21:43] VITALS: BP 122/71; PULSE 86; RESP 16; TEMP 36.3; O2SAT 98; BMI 32.9
--- NOTE | 2025-01-23 22:37 | ED_ITS ---
HPI - Psych General Chief Complaint: Psychiatric Symptoms Stated Complaint: crisis Time Seen by Provider: 01/23/25 22:11 Source: patient Mode of arrival: ambulatory Limitations: no limitations History of Present Illness ED Provider: Camelia Kumari NP HPI Narrative: Patient is a 24-year-old male who presents emergency department for evaluation. He was brought in by his father specimen certain that he has not been taking his medications for a couple of days. Patient states he does not like the side effects he experiences from these medications which is why stop taking them. He denies having any suicidal or homicidal ideations, denies auditory hallucinations, denies recreational drug or alcohol usage. He is requesting to speak with Dr. Saucedo as he has been under his care in the past while he was inpatient. He offers no physical complaints Related Data Previous Rx's ?Medication ?Instructions ?Recorded clozapine 50 mg tablet 50 mg PO BEDTIME 30 days #30 tabs 01/24/25 Allergies Allergy/AdvReac Type Severity Reaction Status Date / Time No Known Allergies Allergy Verified 01/23/25 21:49 Review of Systems Review of Systems: Yes all other systems are reviewed and are negative PMFSH Past Medical History Attestation statement: The following information was validated with the patient. Source: old records reviewed Medical History Fever, unknown origin Autism spectrum disorder Social History Social History Household Members: None Household Members Other:: pt is admit fr M# for catatonia, not response to questions, JULIO CESAR Housing: Homeless Do you presently have visiting nurse or other home services: No Comment: 1:1 sitter at bedside Patient Tobacco Use Status: Never used Tobacco e-Cigarette/Vaping Use: Never Used Second Hand Smoke Exposure: No Advance Directives: No Advance Directives Information Provided: No service: No Sexual orientation: Did not discuss Physical Exam Vital Signs: Vital Signs: Last Vital Signs Temp 97.8 F 01/24/25 08:47 Pulse 80 01/24/25 08:47 Resp 16 01/24/25 08:47 BP 129/79 01/24/25 08:47 Pulse Ox 100 01/24/25 08:47 O2 Del Method Room Air 01/24/25 08:47 BMI result Body Mass Index 32.9 Appearance: Alert.?Oriented to person, place and time. No acute distress.?Normal affect. Eyes: Pupils equal, round and reactive to light.? ENT: Pharynx normal.?? Neck: Normal inspection.? Neck supple.?? CVS: Heart sounds normal. Normal heart rate and rhythm.? Pulses normal.?? Respiratory: No respiratory distress.? Lung sounds clear to auscultation bilaterally?? Abdomen: Soft and non-tender. Normoactive bowel sounds. Skin: Skin warm and dry.? Normal skin color.? Extremities: No lower extremity edema.? Neuro: Moves all extremities spontaneously. Sensation intact bilaterally. CN II- XII intact. No focal neuro deficits. Ambulates with normal steady gait. Course Course Course Narrative: Time: 07:27 Date: 01/24/25 Provider: Miriam Cohen DO Patient in physician observation for psychiatric evaluation.? No acute events reported overnight. No current complaints. VS stable.? Pending CARE team evaluation. Will continue to monitor. Reevaluation(s) Reevaluation #1: Time: 17:00 Date: 01/24/25 Provider: Miriam Cohen DO Physician observation ended at 1700. Patient has been cleared for discharge by the CARE team. Will follow up as an outpatient. Cleared by psychiatry Medications Administered Generic Name Dose Route Start Last Admin Trade Name Freq PRN Reason Stop Dose Admin Lorazepam 1 mg 01/24/25 09:00 01/24/25 08:52 Lorazepam 1 Mg Tablet PO Not Given BID ARNIE Discontinued Medications Generic Name Dose Route Start Last Admin Trade Name Freq PRN Reason Stop Dose Admin Clozapine 25 mg 01/24/25 10:07 01/24/25 12:07 Clozapine 25 Mg Tablet PO 01/24/25 10:08 Not Given ONCE ONE Medical Decision Making Medical Decision Making [facility] Narrative: Patient is a 24-year-old male with past medical history of schizophrenia who presents emergency department with very flat affect, having stopped taking his medications recently secondary to side effects. He offers no physical complaints and his physical examination is benign. He is requesting to see Dr. Saucedo from psychiatry. Plan to obtain serum labs for medical clearance, will refer to care team for assistance with disposition planning. Patient is refusing to have serum labs obtained despite multiple attempts. Differential Diagnosis Differential Diagnoses: The differential diagnosis associated with the presentation includes (See narrative above and below for further detail) Admission/Observation Consideration of admission/observation: Escalation of care including admission/observation considered Patient is being observed in the Emergency Department for decompensated schizophrenia. Observation time was started at 22: 45 on 01/23/2025.?The patient is currently stable and non-toxic appearing. Observation is being initiated in the Emergency Department to allow time to help differentiate if the patient's decompensated schizophrenia is due to Substance Induced Mood Disorder and Anxiety versus Major Depressive Disorder, Bipolar Opal, Bipolar Depression, and Schizophrenia. The patient will receive frequent psychiatric assessments from the provider as well as from nursing staff. The patient will also be monitored for the need of PRN agitation medications such as Haldol, Ativan, and Benadryl. Consult Healthcare Provider Management of the patient was discussed with: Behavioral Health Provider (CARE team) External Record Review External record reviewed: Inpatient record and Outpatient record Chronic Conditions Patient?s care impacted by: Other (See narrative above) Discharge Plan Discharge Clinical Impression: Chronic schizophrenia Patient Disposition: Home, Self-Care Instructions: Schizophrenia (ED), Clozapine (By mouth) Additional Instructions: You were seen in our Emergency Department today for treatment of a behavioral health issue. It is important after your visit that you follow up with either your behavioral health provider or a primary care doctor within 7 days.? If you have trouble finding a therapist you can reach out to [place] [phone] The National Suicide and Crisis Lifeline can be reached 7 days a week 24 hours a day.? Call 988 to speak with someone.? Return for any worsening symptoms or concerns such as thoughts of self harm or harm to others. Please call 911 if you feel your mental health is worsening.? Prescriptions: Continued clozapine 50 mg tablet 50 mg PO BEDTIME 30 Days Qty: 30 0RF Discontinued lorazepam 1 mg tablet 1 mg PO BID Referrals: Physician,Unknown J [Primary Care Provider] - Print Language: Marshallese
--- NOTE | 2025-01-24 00:04 | MHC.EDTECH ---
Pt refusing blood draw at this time and would like to speak to RN. Pt states that he had blood drawn recently and does not understand why more blood is needed. This check writer explained to pt that new labs are needed to be medically cleared and treatment can continue. Pt also refused to answer any of registration questions. RN aware.
--- NOTE | 2025-01-24 06:06 | PC.NURSE ---
Pt very suspicious and refusing treatment at times such as vitals and bloodwork. Pt sleeping comfortably on bed. Pt understands to ask for assistance or if he needs anything.
[2025-01-24 08:47] VITALS: BP 129/79; PULSE 80; RESP 16; TEMP 36.6; O2SAT 100
--- NOTE | 2025-01-24 08:49 | MHC.EDTECH ---
Vital signs successful this morning. Patient made aware that we have blood work and urine tests ordered as well. Patient not refusing, but thinking about if he would like to provide those samples.This tech asked patient to come and let staff know if he decided he was agreeable to testing. RN aware of conversation. Patient seemed confused on why he was in the hospital and asking on consent to be here. Rn aware of conversation.
--- NOTE | 2025-01-24 09:09 | PC.NURSE ---
Assumed care of pt at 0700. Pt resting in bed quietly, alert, unable to obtain orientation status d/t patient not responding to questions. Respirations even and unlabored, no increased wob/sob noted, appears in no distress. Pt repeating questions about insurance and payment for hospital stay, support given to pt by this RN. Pt offered 0900am Ativan dose- pt declined medication, will offer at later time if patient needs. Pt affect flat, slow to respond to questions, not engaging in conversation with this RN. Pt refused bloodwork, able to obtain morning vitals signs- pt educated on need for bloodwork. CARE team at bedside this morning- pt updated on plan of care/process of care. Breakfast tray at bedside, all needs met at this time.
--- NOTE | 2025-01-24 10:08 | P.CNPS_ITS ---
History of Present Illness Date of Service: 01/24/25 Chief Complaint: crisis Reason for Consult: Assessment Sources of Information: patient interviewed, chart reviewed and crisis/core team assessment reviewed HPI Narrative: Patient is a 24-year-old male with history of schizophrenia, autistic spectrum disorder, recently treated for catatonia with ECT on M5 and discharged on clozapine who presents now with some dysregulated thinking having been off clozapine. Patient says he stopped taking it for only about 2 or 3 days; he said he is not sure exactly why and denies any side effects. Industrial Design Intern discussed his illness and need for medication and patient agreed to restart taking it, not wanting symptoms to come back or to end up needing hospitalization. Patient denies any AVH or paranoid delusions though he does seem internally preoccupied with thought blocking and speech latency. Patient says he will restart Clozaril but does not want to be on Ativan anymore and did not want to continue getting ECT. Industrial Design Intern spoke with patient's grandmother who thinks he has been off his medications for longer than 2 or 3 days; she says his mother called her after he had a bizarre conversation with her. Grandmother says she will take him back as long as he agrees to remain on clozapine which patient does. Past Psychiatric History: Does not have outpatient psychiatric providers. Recently discharged from [facility] 11/2024. This is patient's 2nd inpatient psychiatric hospitalization. Denies history of SA/SIB. There is a reported long history of autism high functioning patient was in [employer] classes has reportedly developed schizophrenic type symptoms over the past year has not been in outpatient treatment patient had reportedly refused treatment. [facility] Medical History Fever, unknown origin Autism spectrum disorder Family History: Denies Social History: ASD since 2 years old; IEP with [employer], working; spelling [employer]; graduated [employer]; Living in [place] with his mother until July 2024 when he moved to [place] to be with his father. -around 22 years old, seemed more reclusive and pt started changing -lost job September 2022; missing days, not focused; got fired at next job for going too slow -a year ago, less ADL's, not showering, less motivation, mom thinking more than just ASD since not like this at all in [employer] -Refusing to go to appointments. Got him to ED and psych doctor evaluated but was not able to be Sectioned; mom tried other times to get him to doctor, to hospital, but police felt did not meet criteria to section him... -still minimal ADL's; in Fall 2023 started sleeping outside in the park which again, out of character -Jul 2024 making slow movements, like in slow motion, but able to pull out of it; kept sleeping outside in front of her door, peeing on himself or in bottles. -Episodes of staring off and not responding; intermittently would look agitated -Mom sent him to [place] to be with father -no hx of drug/alcohol use -had gone 36 hours w/out sleep, but not hyperactive, withdrawn and either quiet on laptop or making lots of food but not eating -no seizure hx -no hx of medication Trauma History: Denies question some recent difficulty when at a assisted Diagnostics Vital Signs (24Hr): Vital Signs - 24 hr 01/23/25 21:43 01/24/25 08:47 Temperature 97.4 F 97.8 F Pulse Rate 86 80 Respiratory Rate 16 16 Blood Pressure 122/71 129/79 Pulse Oximetry 98 100 Oxygen Delivery Method Room Air Room Air BMI result Body Mass Index 32.9 Medications Medications Current Medications Clozapine (Clozapine 25 Mg Tablet) 25 mg PO BEDTIME ARNIE Lorazepam (Lorazepam 1 Mg Tablet) 1 mg PO BID ARNIE Last Admin: 01/24/25 08:52 Dose: Not Given Allergies Allergies Allergy/AdvReac Type Severity Reaction Status Date / Time No Known Allergies Allergy Verified 01/23/25 21:49 Assessment & Plan Assessment & Plan (1) Schizophrenia: Status: Acute Code(s): F20.9 - Schizophrenia, unspecified Plan Patient is a 24-year-old male with history of schizophrenia, autistic spectrum disorder, recently treated for catatonia with ECT on M5 and discharged on clozapine who presents now with some dysregulated thinking having been off clozapine. Patient says he stopped taking it for only about 2 or 3 days; he said he is not sure exactly why and denies any side effects. Industrial Design Intern discussed his illness and need for medication and patient agreed to restart taking it, not wanting symptoms to come back or to end up needing hospitalization. Patient denies any AVH or paranoid delusions though he does seem internally preoccupied with thought blocking and speech latency. Patient says he will restart Clozaril but does not want to be on Ativan anymore and did not want to continue getting ECT. Industrial Design Intern spoke with patient's grandmother who thinks he has been off his medications for longer than 2 or 3 days; she says his mother called her after he had a bizarre conversation with her. Grandmother says she will take him back as long as he agrees to remain on clozapine which patient does. Impression: Patient with increased thought blocking and internal preoccupation having been off Clozaril. He does not rise to the level of involuntary commitment and he does not want psychiatric admission. Instead patient agrees to restart clozapine and return home. Industrial Design Intern agrees with plan Total time managing care of this patient today ____ minutes. Patient educated on: diagnosis, medication risk/benefits and ECT Informed Consent: understands
--- NOTE | 2025-01-24 13:57 | MHC.CARE ---
Following discussions w Dr Saucedo and Keke Davis, patient is to be discharged around 530, his grandmother will be picking him up. Discussed with ED attending provider Vicki.
[2025-01-24 16:00] VITALS: BP 132/68; PULSE 82; RESP 16; TEMP 36.8; O2SAT 100
[2025-01-24 17:57] VITALS: BP 132/68; PULSE 82; RESP 16; TEMP 36.8; O2SAT 100
== END 2025-01-24 18:40 | disposition home or self-care (01) ==
PROVIDERS: Emergency Provider Emergency Medicine
DX: F20.9 Schizophrenia, unspecified (principal); Z91.148 Patient's other noncompliance with medication regimen for other reason
CPT/HCPCS: 99284; S9485

== ENCOUNTER → 2025-01-23 23:49 | Outpatient (BNV) | payer OTHER, SELFPAY | PROVIDERS: Emergency Provider Emergency Medicine; Visit Provider Psychiatry & Neurology Psychiatry | DX: F20.9 Schizophrenia, unspecified (principal) | CPT/HCPCS: 99284 ==